=== PATIENT | female | born 1945 | race Caucasian/White ===

== ENCOUNTER → 2016-08-25 | Outpatient (CLI) | payer OTHER ==
[~2016-08-25] MED LIST: AMLO10TA2 PO; ASPI-435 PO; CHOL1TAB42 PO; FLM4 PO; GLIP10TA9 PO; HYDR-5688 PO; INSU70IN2 SC; LISI40TA PO; MAGN400T6 PO; METF-384 PO; METH2.5T PO; NVLGI/PEN SC; PHEN-1043 PO; POTA1080 PO; PRED-301 PO; PRLSR20 PO; TNR25 PO
== END | disposition home or self-care (01) ==
LOC: C.LABBFT 08:56
PROVIDERS: ATTEND Internal Medicine Rheumatology
DX: M35.3 Polymyalgia rheumatica (principal)

== ENCOUNTER 2016-09-15 16:55 | Emergency (ER) | payer OTHER ==
[~2016-09-15] VITALS: Ht 167.6 cm; Wt 118.2 kg
[~2016-09-15 16:55] MED LIST changes: -CHOL1TAB42 PO; -GLIP10TA9 PO; -METH2.5T PO; -NVLGI/PEN SC; -POTA1080 PO; -PRED-301 PO
[2016-09-15 17:01] VITALS: TEMP 37.2; Ht 167.6 cm; Wt 118.2 kg
[2016-09-15 17:40] VITALS: O2SAT 95
[2016-09-15 17:44] LABS: BASO % 0.1 %; BASO ABS # 0.02 K/uL (0-0.2); COMPLETE YES; EOS % 0.1 %; HEMATOCRIT 34.3 % (37-47); IG% 0.7 %; LYMPH % 9.6 %; LYMPH ABS # 1.62 K/uL (1.2-3.4); MEAN CELL VOLUME 75.4 fL (80-100); MEAN CORPUSCULAR HEMOGLOBIN 23.5 pg (25-34); MEAN CORPUSCULAR HGB CONC 31.2 g/dl (32-36); MEAN PLATELET VOLUME 10.1 fL (7.4-10.4); MONO % 3.7 %; NEUT % 85.8 %; PLATELET COUNT 407 K/uL (130-400); RED BLOOD COUNT 4.55 M/uL (4.2-5.4); WHITE BLOOD COUNT 16.89 K/uL (4.8-10.8)
[2016-09-15] MEDS ORDERED: INSU70IN2 SC (17:44)
[2016-09-15] MEDS ORDERED: CHOL1TAB42 PO (17:44)
[2016-09-15] MEDS ORDERED: METH2.5T PO (17:44)
[2016-09-15] MEDS ORDERED: POTA1080 PO (17:45)
[2016-09-15] MEDS ORDERED: NVLGI/PEN SC (17:56)
[2016-09-15] MEDS ORDERED: GLIP10TA9 PO (17:56)
[2016-09-15] MEDS ORDERED: PRED-301 PO ×2 (17:56)
[2016-09-15 17:58] LABS: PARTIAL THROMBOPLASTIN RATIO 0.9; PROTHROMBIN TIME (PATIENT) 10.4 SECONDS (9.0-12.0)
[2016-09-15 18:02] LABS: BUN/CREATININE RATIO 28.4 (10-20); CALCIUM 9.7 mg/dl (8.5-10.1); CREATININE 1.2 mg/dl (0.60-1.20); POTASSIUM 4.6 mmol/L (3.5-5.1)
[2016-09-15 18:07] LABS: ALB/GLOB RATIO 0.7 (0.9-2); CKMB/CK RATIO 3.2 (0-3.0)
--- NOTE | 2016-09-15 18:34 | DIAGNOSTIC IMAGING REPORT ---
CHEST ONE VIEW PORTABLE CLINICAL HISTORY: Shortness of breath. Respiratory distress. COMPARISON STUDY: Chest radiograph November 03, 2014. FINDINGS: Elevation of the right hemidiaphragm is unchanged. There is no pneumothorax or pleural effusion. There is no evidence of pulmonary edema. Mild left lung opacities favor atelectasis. There is no consolidation to suggest pneumonia. The cardiomediastinal silhouette is stable. IMPRESSION: No acute cardiopulmonary findings. Electronically signed by: Jayy Rojas M.D. 09/15/2016 6:33 PM Dictated Date/Time: 09/15/2016 6:31 PM
--- NOTE | 2016-09-15 18:49 | DIAGNOSTIC IMAGING REPORT ---
BILATERAL LOWER EXTREMITY VENOUS DOPPLER CLINICAL HISTORY: Shortness of breath. Respiratory distress. COMPARISON STUDY: Bilateral lower extremity venous Doppler April 06, 2013 TECHNIQUE: Sonography of the deep venous system of the bilateral lower extremities was performed. Compression and augmentation were evaluated. FINDINGS: The bilateral common femoral, superficial femoral and popliteal veins were compressible. Augmentation was normal. Flow was shown within the deep calf vessels. IMPRESSION: No evidence of deep venous thrombus within the bilateral lower extremities. Electronically signed by: Jayy Rojas M.D. 09/15/2016 6:48 PM Dictated Date/Time: 09/15/2016 6:47 PM
--- NOTE | 2016-09-15 19:21 | EMERGENCY ROOM VISIT NOTE ---
History Report prepared by Sweetie: Melissa Hernandez Under the Supervision of: Dr. Sidney Gomez D.O. First contact with patient: 17:06 Chief Complaint: SHORTNESS OF BREATH Stated Complaint: BREATHING History of Present Illness The patient is a 71 year old female who presents to the Emergency Room with complaints of worsening shortness of breath that started 3-4 days ago. She is also experiencing worsening bilateral upper and lower extremity edema as well as palpitations that also started 3-4 days ago. She states that at night both of her arms from her forearms to her hands get numb and cold. She states that the same thing happens in her bilateral lower extremities. The patient denies fevers, cough, chest discomfort or pain, nausea, and vomiting. The patient adds that she has been experiencing constant "fullness" in the back of her right leg for the past two weeks and the pain is still there currently. She developed a lump in the spot of the pain 5 days ago, but it has since resolved. The patient was seen by her PCP earlier today for her symptoms. They put a pulse oximetry monitor on her and her oxygen saturation was 95% when resting and 93% when walking. They also performed an EKG that had slight changes from previous ones with some "extra or skipped" beats. She states that they also noticed her increased shortness of breath. Based on her symptoms, her PCP recommended that she come into the ED to rule out a blood clot in her right leg along with pulmonary emboli. The patient states that she had an unremarkable stress test done in the past, but she did not specify how long ago it was done. The patient has never had a heart catheterization and denies any history of heart disease. The patient also denies any history of blood clots. The patient states that she has a history of PMR, diabetes, hypertension. She also states that her surgical history includes surgeries secondary to breast cancer, surgically removed kidney stones, knee surgery, and an appendectomy. The patient denies any tobacco or alcohol use. Source of History: patient Onset: 3-4 days ago Position: chest Quality: other (shortness of breath) Timing: worsening Associated Symptoms: No chest pain, No cough, No fevers, No nausea, No vomiting Note: bilateral upper and lower extremity edema, palpitations, numbness at night distally in both arms and both legs, "fullness" in back of right leg, resolved lump behind right knee Review of Systems See HPI for pertinent positives & negatives. A total of 10 systems reviewed and were otherwise negative. Past Medical & Surgical Medical Problems: (1) Delaney's Palsy (2) Cholelithiasis Nos (3) Diabetes mellitus (4) Diverticulitis Colon (W/O Ment Of Hemorrhage) (5) Esophageal Reflux (6) Hypertension Nos (7) PMR (polymyalgia rheumatica) (8) Renal calculus, right (9) Umbilical Hernia Surgical Problems: (1) History of appendectomy Family History Cancer Diabetes mellitus Gallbladder disease Hypertension Lung disease Social History Smoking Status: Never Smoker Alcohol Use: none Drug Use: none Marital Status: Occupation Status: employed Current/Historical Medications Scheduled Amlodipine Besylate (Norvasc), 5 MG PO DAILY Aspirin (Aspirin 81), 81 MG PO DAILY Atenolol (Atenolol), 25 MG PO DAILY Cholecalciferol (Vitamin D), 5,000 UNITS PO DAILY Glipizide (Glucotrol), 20 MG PO BID Insulin Aspart (Novolog Flexpen), 38 UNITS SC PM Insulin Human Isophan/Regular (Novolin 70/30), 100 UNITS SC QAM Insulin Human Isophan/Regular (Novolin 70/30), 60 UNIT SC QPM Lisinopril (Prinivil), 40 MG PO DAILY Magnesium Oxide (Mag-Ox), 400 MG PO BID Metformin Hcl (Glucophage), 1,000 MG PO BID Methotrexate (Methotrexate), 2.5 MG PO 3XWK Omeprazole (Prilosec), 20 MG PO BID Potassium Citrate (Alkalinizer (Potassium Citrate ER), 1,080 MG PO BID Prednisone (Prednisone), 20 MG PO QAM Prednisone (Prednisone), 5 MG PO 1500 Allergies Coded Allergies: Iodinated Contrast Media (Verified Allergy, Severe, ANAPHYLAXIS, CONVULSIONS, 09/15/16) Metronidazole (Verified Allergy, Intermediate, HIVES, 09/15/16) Quinolones (Verified Allergy, Intermediate, HIVES, 09/15/16) Adhesives (Unverified Allergy, Unknown, SEVERE BURNING BLISTERS, 09/15/16) Ciprofloxacin (Verified Allergy, Unknown, hives, 09/15/16) pt Sulfamethoxazole w/Trimethoprim (Verified Allergy, Unknown, hives, 09/15/16 ) pt Sumatriptan (Verified Allergy, Unknown, SOB,INCREASED HEARTRATE, 09/15/16) Tramadol (Verified Allergy, Unknown, FATIGUE, 09/15/16) Physical Exam Vital Signs Date Time Temp Pulse Resp B/P Pulse Ox O2 Delivery O2 Flow Rate FiO2 09/15/16 19:30 66 128/53 94 09/15/16 18:44 67 20 162/62 95 Room Air 09/15/16 17:54 77 09/15/16 17:40 95 Room Air 09/15/16 17:40 95 Room Air 09/15/16 17:01 37.2 79 19 151/68 93 Room Air Physical Exam GENERAL: Patient is awake, alert, and in no acute distress. Patient is resting comfortably and showing no signs of anxiety EYES: The conjunctivae are clear. The pupils are round and reactive. EARS, NOSE, MOUTH AND THROAT: The nose is without any evidence of any deformity. Mucous membranes are moist tongue is midline NECK: The neck is nontender and supple. RESPIRATORY: Normal respiratory effort is noted there is no evidence of wheezing rhonchi or rales CARDIOVASCULAR: Regular rate and rhythm noted there no murmurs rubs or gallops normal S1 normal S2 GASTROINTESTINAL: The abdomen is soft. Bowel sounds are present in all quadrants. Abdomen is nontender MUSCULOSKELETAL/EXTREMITIES: Right calf tenderness to palpation. Pulses symmetric. There is no evidence of gross deformity full range of motion is noted in the hips and shoulders. SKIN: There is no significant pedal edema noted. Skin is warm and dry. There is no obvious evidence of any rash. There are no petechiae, pallor or cyanosis noted. NEUROLOGIC: Patient is awake alert and oriented x3 Medical Decision & Procedures ER Provider Diagnostic Interpretation: Radiology results as stated below per my review and radiologist interpretation: CHEST ONE VIEW PORTABLE IMPRESSION: No acute cardiopulmonary findings. Electronically signed by: Jayy Rojas M.D. 09/15/2016 6:33 PM Dictated Date/Time: 09/15/2016 6:31 PM BILATERAL LOWER EXTREMITY VENOUS DOPPLER IMPRESSION: No evidence of deep venous thrombus within the bilateral lower extremities. Electronically signed by: Jayy Rojas M.D. 09/15/2016 6:48 PM Dictated Date/Time: 09/15/2016 6:47 PM Laboratory Results 09/15/16 17:30 Red Blood Count 4.55, Mean Corpuscular Volume 75.4, Mean Corpuscular Hemoglobin 23.5, Mean Corpuscular Hemoglobin Concent 31.2, Mean Platelet Volume 10.1, Neutrophils (%) (Auto) 85.8, Lymphocytes (%) (Auto) 9.6, Monocytes (%) (Auto) 3.7, Eosinophils (%) (Auto) 0.1, Basophils (%) (Auto) 0.1, Neutrophils # (Auto) 14.49, Lymphocytes # (Auto) 1.62, Monocytes # (Auto) 0.62, Eosinophils # (Auto) 0.02, Basophils # (Auto) 0.02 09/15/16 17:30 Test 09/15/16 17:30 09/15/16 17:48 White Blood Count 16.89 K/uL (4.8-10.8) Red Blood Count 4.55 M/uL (4.2-5.4) Hemoglobin 10.7 g/dL (12.0-16.0) Hematocrit 34.3 % (37-47) Mean Corpuscular Volume 75.4 fL (80-100) Mean Corpuscular Hemoglobin 23.5 pg (25-34) Mean Corpuscular Hemoglobin Concent 31.2 g/dl (32-36) Platelet Count 407 K/uL (130-400) Mean Platelet Volume 10.1 fL (7.4-10.4) Neutrophils (%) (Auto) 85.8 % Lymphocytes (%) (Auto) 9.6 % Monocytes (%) (Auto) 3.7 % Eosinophils (%) (Auto) 0.1 % Basophils (%) (Auto) 0.1 % Neutrophils # (Auto) 14.49 K/uL (1.4-6.5) Lymphocytes # (Auto) 1.62 K/uL (1.2-3.4) Monocytes # (Auto) 0.62 K/uL (0.11-0.59) Eosinophils # (Auto) 0.02 K/uL (0-0.5) Basophils # (Auto) 0.02 K/uL (0-0.2) RDW Standard Deviation 49.7 fL (36.4-46.3) RDW Coefficient of Variation 18.5 % (11.5-14.5) Immature Granulocyte % (Auto) 0.7 % Immature Granulocyte # (Auto) 0.12 K/uL (0.00-0.02) Prothrombin Time 10.4 SECONDS (9.0-12.0) Prothromb Time International Ratio 1.0 (0.9-1.1) Activated Partial Thromboplast Time 22.6 SECONDS (21.0-31.0) Partial Thromboplastin Ratio 0.9 Anion Gap 9.0 mmol/L (3-11) Est Creatinine Clear Calc Drug Dose 56.2 ml/min Estimated GFR () 52.7 Estimated GFR (Non- 45.4 BUN/Creatinine Ratio 28.4 (10-20) Calcium Level 9.7 mg/dl (8.5-10.1) Total Bilirubin 0.2 mg/dl (0.2-1) Aspartate Amino Transf (AST/SGOT) 26 U/L (15-37) Alanine Aminotransferase (ALT/SGPT) 48 U/L (12-78) Alkaline Phosphatase 49 U/L (45-117) Total Creatine Kinase 50 U/L (26-192) Creatine Kinase MB 1.6 ng/ml (0.5-3.6) Creatine Kinase MB Ratio 3.2 (0-3.0) Pro-B-Type Natriuretic Peptide 246 pg/ml (0-900) Total Protein 7.4 gm/dl (6.4-8.2) Albumin 3.1 gm/dl (3.4-5.0) Globulin 4.3 gm/dl (2.5-4.0) Albumin/Globulin Ratio 0.7 (0.9-2) Bedside D-Dimer 253 ng/mlFEU (0-450) Bedside Troponin I 0.000 ng/ml (0-0.045) Laboratory results per my review. ECG Indication: palpitations, SOB/dyspnea Rate (beats per minute): 73 Rhythm: sinus rhythm Findings: PAC, other (no acute ST segment abnormalities, LVH by voltage criteria) Comparison ECG Date: 11/04/2014 Change: no significant change ED Course 1712: The patient was evaluated in room B3. A complete history and physical examination were performed. 1900: Upon reevaluation, the patient is doing well. I discussed the results and treatment plan with her. She verbalized agreement of the treatment plan. She was discharged home. Medical Decision Prior records/ancillary studies reviewed. Triage Nursing notes reviewed. The patient's history was concerning for respiratory difficulties. Differential diagnosis: Etiologies such as infections, reactive airway disease, pneumonia, pneumothorax , COPD, CHF, cardiac ischemia, pulmonary embolism, musculoskeletal, gastrointestinal, as well as others were entertained. The patient is a 71-year-old female who presented to the emergency department for cough and shortness of breath. The patient was seen by her primary care physician. She is currently taking steroids. She started having some pain behind her right knee and noticed swelling. This resolved. Her primary care physician thought it could be a Paul cyst but also thought with her other symptoms this could be consistent with venous thromboembolic disease. The patient's venous Dopplers did not show any signs of venous thrombolic disease. Her d-dimer was negative. Her chest x-ray did not show any acute disease. I discussed the patient's laboratory and radiographic studies with her. She was concerned because her oxygen level was not at baseline for her. She states her baseline is normally around 97% but at this time she has no signs of heart failure or pulmonary embolism. She also does not have any signs of infectious process. She was found have an elevated white blood cell count but she is currently taking steroids. I do feel this could be consistent with a bronchitis or some other process so I encouraged her to rest and avoid any strenuous activity. I asked her to call her primary care physician to schedule a follow- up appointment as well as possible echocardiogram and Holter monitor. She was also encouraged to return to the emergency department immediately if symptoms change worsen or if the need arises. Impression Primary Impression: Dyspnea Additional Impression: Heart palpitations Scribe Attestation The scribe's documentation has been prepared under my direction and personally reviewed by me in its entirety. I confirm that the note above accurately reflects all work, treatment, procedures, and medical decision making performed by me. Departure Information Dispostion Home / Self-Care Referrals No Doctor, Assigned (PCP) Forms HOME CARE DOCUMENTATION FORM, IMPORTANT VISIT INFORMATION Patient Instructions My [facility] Additional Instructions CAll your family doctor to schedule a follow up appointment. I would discuss the possible need for an echocardiogram and Holter monitor to evaluate the cause of your symptoms. Rest and avoid any strenuous activities. Return to the ER of symptoms change or if the need arises. Problem Qualifiers Primary Impression: Dyspnea Dyspnea type: shortness of breath Qualified Codes: R06.02 - Shortness of breath
[2016-09-15 19:30] VITALS: BP 128/53; PULSE 66; O2SAT 94
== END 2016-09-15 19:32 | disposition home or self-care (01) ==
LOC: C.EDB 16:56
DX: R06.02 Shortness of breath (principal); R00.2 Palpitations; M35.3 Polymyalgia rheumatica; E11.9 Type 2 diabetes mellitus without complications; G51.0 Bell's palsy; Z83.3 Family history of diabetes mellitus; Z82.49 Family history of ischemic heart disease and other diseases of the circulatory system; Z79.82 Long term (current) use of aspirin; Z79.4 Long term (current) use of insulin; Z79.899 Other long term (current) drug therapy

== ENCOUNTER → 2016-09-18 | Outpatient (CLI) | payer OTHER ==
[~2016-09-18] MED LIST changes: +CHOL1TAB42 PO; -FLM4 PO; +GLIP10TA9 PO; -HYDR-5688 PO; +METH2.5T PO; +NVLGI/PEN SC; -PHEN-1043 PO; +POTA1080 PO; +PRED-301 PO
[2016-09-18 12:22] LABS: HEMATOCRIT 36.4 % (37-47); MEAN CELL VOLUME 75.2 fL (80-100); MEAN CORPUSCULAR HEMOGLOBIN 23.3 pg (25-34); PLATELET COUNT 490 K/uL (130-400); RED BLOOD COUNT 4.84 M/uL (4.2-5.4); WHITE BLOOD COUNT 23.72 K/uL (4.8-10.8)
[2016-09-18 12:31] LABS: ALT/SGPT 48 U/L (12-78)
[2016-09-18 12:34] LABS: ALKALINE PHOSPHATASE 50 U/L (45-117); AST/SGOT 17 U/L (15-37)
[2016-09-18 13:16] LABS: BASO % 0.3 %; BASO ABS # 0.07 K/uL (0-0.2); COMPLETE YES; EOS % 0.6 %; IG% 2.5 %; LYMPH % 9.5 %; LYMPH ABS # 2.26 K/uL (1.2-3.4); MONO % 2.4 %; NEUT % 84.7 %
== END | disposition home or self-care (01) ==
LOC: C.LABBFT 10:21
PROVIDERS: ATTEND Internal Medicine Rheumatology
DX: M79.643 Pain in unspecified hand (principal); M35.3 Polymyalgia rheumatica

== ENCOUNTER → 2016-10-22 | Outpatient (CLI) | payer OTHER ==
[~2016-10-22] MED LIST changes: +ALLO100T PO; +AMOX500T PO; +CALC-494 PO; +CHOL400C PO; +FOLI1TAB7 PO; +FURO-85 PO; +LOSA100T65 PO; +METH1TAB81 PO; +TNR50 PO
[2016-10-22 17:27] LABS: BASO % 0.2 %; BASO ABS # 0.03 K/uL (0-0.2); EOS % 1.1 %; HEMATOCRIT 34.8 % (37-47); LYMPH % 10.3 %; LYMPH ABS # 1.65 K/uL (1.2-3.4); MEAN CELL VOLUME 80.4 fL (80-100); MEAN CORPUSCULAR HEMOGLOBIN 23.8 pg (25-34); MEAN CORPUSCULAR HGB CONC 29.6 g/dl (32-36); MEAN PLATELET VOLUME 10.7 fL (7.4-10.4); MONO % 2.6 %; NEUT % 84.8 %; PLATELET COUNT 372 K/uL (130-400); RED BLOOD COUNT 4.33 M/uL (4.2-5.4)
[2016-10-22 17:31] LABS: ALT/SGPT 49 U/L (12-78); AST/SGOT 23 U/L (15-37)
[2016-10-22 17:33] LABS: ALKALINE PHOSPHATASE 36 U/L (45-117); C-REACTIVE PROTEIN 1.19 mg/dl (0-0.29)
[2016-10-22 17:55] LABS: ANISOCYTOSIS PRESENT; COMPLETE YES; ECHINOCYTES 1+; SCHISTOCYTES 1+
[2016-10-28 04:31] LABS: ANTI-CENTROMERE AB <1.0 NEG AI (<1.0 NEG); ANTI-SS-A 1.4 POS AI (<1.0 NEG); ANTI-SS-B <1.0 NEG AI (<1.0 NEG); DNA ds CRITHIDIA NEGATIVE (NEGATIVE); Sm Antibody <1.0 NEG AI (<1.0 NEG)
== END | disposition home or self-care (01) ==
LOC: C.LABBFT 12:59
PROVIDERS: ATTEND Internal Medicine Rheumatology
DX: R70.0 Elevated erythrocyte sedimentation rate (principal); M79.643 Pain in unspecified hand; M79.646 Pain in unspecified finger(s); M35.3 Polymyalgia rheumatica; M35.00 Sjogren syndrome, unspecified

== ENCOUNTER → 2016-11-10 | Outpatient (CLI) | payer OTHER ==
--- NOTE | 2016-11-10 15:48 | MAMMOGRAPHY REPORT ---
BILATERAL DIGITAL DIAGNOSTIC MAMMOGRAM TOMOSYNTHESIS WITH CAD: 11/10/2016 CLINICAL HISTORY: 71-year-old woman with a recent chest CT performed 10/30/2016 and a finding in the right breast on that exam, "21 x 38 mm soft tissue nodule with partial rim calcification in the rig ht breast which has increased since a prior CT scan. Postsurgical change with oil cysts are seen at this level on prior mammogram." Patient presents for annual bilateral screening mammography and ad ditional workup for possible changes near the surgical sites in the right breast. 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 TECHNIQUE: Bilateral breast tomosynthesis in addition to standard 2D mammography was performed. Curr ent study was also evaluated with a Computer Aided Detection (CAD) system. COMPARISON: Comparison is made to exams dated: 12/20/2015 mammogram, 12/07/2014 mammogram, 12/06/2013 m ammogram, 11/29/2012 mammogram, 06/07/2012 mammogram, and 07/01/2011 ultrasound - [facility]. BREAST COMPOSITION: There are scattered areas of fibroglandular density in both breasts. FINDINGS: There are coarse dystrophic calcifications and multiple surgical clips in the upper outer middle to posterior right breast, at the sites of 2 prior lumpectomies. The more superior and later al surgical site contains uniform dystrophic rim calcification M a and the medial and inferior surgi ross site has coarsened and is increasingly calcified comparing to prior available mammograms. There is also evidence of scar retraction of the medial surgical site. There is no evidence of a suspici ous soft tissue density or obvious mass, including the tomosynthesis images. There is a stable lobu lated and circumscribed 6 mm mass in the far medial right breast on the CC view, that has been prese nt on prior mammograms dating back to at least 06/03/2007, therefore considered benign. There are o ther benign rim calcifications diffusely scattered throughout the right breast. Mild diffuse skin t hickening is unchanged compared to multiple prior mammograms. There is a stable grouping of microcalcifications in the medial left breast and a few other benign-a ppearing scattered microcalcifications. No new suspicious mass, architectural distortion or suspici ous calcifications are identified in the left breast. IMPRESSION: ACR BI-RADS CATEGORY 2: BENIGN 1. There is continued scar retraction and increased calcification/coarsening of the medial lumpecto my bed within the right breast, which is now more confluent of the more remote lateral surgical bed, all of which contain benign rim calcifications/oil cysts. There is no evidence of a new suspicious mammographic mass, developing asymmetry or unexpected area of architectural distortion. The findin gs at the surgical site are considered benign. 2. Stable mammographic appearance of the left breast, without mammographic evidence of malignancy. Recommend follow-up in 1 year for next annual screening mammogram. The patient can remain diagnosti c in case any additional mammographic views and/or ultrasound are needed, given she is high risk, wi th a personal history of 2 prior right breast cancers. Approximately 10% of breast cancers are not detected with mammography. A negative mammographic repor t should not delay biopsy if a clinically suggestive mass is present. Nadege Samuels M.D. ay/:11/10/2016 15:12:20 Metal Finisher: Caitlin ORTEGA(Pedrito)(Cristo), [facility] letter sent: Normal 1/2 BI-RADS Code: ACR BI-RADS Category 2: Benign
== END | disposition home or self-care (01) ==
LOC: C.MAMM 13:23
PROVIDERS: ATTEND Internal Medicine
DX: N63 Unspecified lump in breast (principal)

== ENCOUNTER → 2016-12-05 | Outpatient (CLI) | payer OTHER | END | disposition home or self-care (01) | LOC: C.LABBFT 14:33 | PROVIDERS: ATTEND Internal Medicine Rheumatology | DX: M35.3 Polymyalgia rheumatica (principal); R76.8 Other specified abnormal immunological findings in serum; Z79.899 Other long term (current) drug therapy ==

== ENCOUNTER → 2017-01-12 | Outpatient (CLI) | payer OTHER | END | disposition home or self-care (01) | LOC: C.LABBFT 11:42 | PROVIDERS: ATTEND Internal Medicine Rheumatology | DX: R70.0 Elevated erythrocyte sedimentation rate (principal); M35.3 Polymyalgia rheumatica; Z79.899 Other long term (current) drug therapy ==

== ENCOUNTER → 2017-02-17 | Outpatient (CLI) | payer OTHER ==
[2017-02-21 06:21] LABS: ANTI-CENTROMERE AB <1.0 NEG AI (<1.0 NEG); ANTI-SS-A 1.1 POS AI (<1.0 NEG); ANTI-SS-B <1.0 NEG AI (<1.0 NEG); DNA ds CRITHIDIA NEGATIVE (NEGATIVE); Sm Antibody <1.0 NEG AI (<1.0 NEG)
== END | disposition home or self-care (01) ==
LOC: C.LABBFT 11:59
PROVIDERS: ATTEND Internal Medicine Rheumatology
DX: M35.3 Polymyalgia rheumatica (principal); Z79.899 Other long term (current) drug therapy

== ENCOUNTER → 2017-03-13 | Outpatient (CLI) | payer OTHER | END | disposition home or self-care (01) | LOC: C.LABBFT 14:47 | PROVIDERS: ATTEND Internal Medicine Rheumatology | DX: M35.3 Polymyalgia rheumatica (principal); R76.8 Other specified abnormal immunological findings in serum; Z79.899 Other long term (current) drug therapy ==

== ENCOUNTER → 2017-04-03 | Outpatient (CLI) | payer OTHER ==
--- NOTE | 2017-04-03 12:35 | DIAGNOSTIC IMAGING REPORT ---
VENOUS DOPPLER LW EXT BILAT HISTORY: Pain. Edema. EDEMA COMPARISON STUDY: None. FINDINGS: There is normal compressibility, flow, and augmentation within the bilateral lower extremity deep venous systems. IMPRESSION: No DVT within the right or left lower extremity. The above report was generated using voice recognition software. It may contain grammatical, syntax or spelling errors. Electronically signed by: Narciso Diallo M.D. 04/03/2017 12:34 PM Dictated Date/Time: 04/03/2017 12:33 PM
== END | disposition home or self-care (01) ==
LOC: C.ULTR 12:00
PROVIDERS: ATTEND Internal Medicine
DX: R60.9 Edema, unspecified (principal)

== ENCOUNTER 2017-04-24 15:15 | Emergency (ER) | payer OTHER ==
[~2017-04-24] VITALS: Ht 167.6 cm; Wt 121.2 kg
[~2017-04-24 15:15] MED LIST changes: -ALLO100T PO; -AMOX500T PO; -CALC-494 PO; -CHOL400C PO; -FOLI1TAB7 PO; -FURO-85 PO; -LOSA100T65 PO; -MAGN400T6 PO; -METH1TAB81 PO; -POTA1080 PO; -TNR50 PO
[2017-04-24 15:19] VITALS: TEMP 37.1; Ht 167.6 cm; Wt 121.2 kg
[2017-04-24] MEDS ORDERED: HydrALAZINE HCL 20 MG/ML VIAL IV. STA (15:38)
[2017-04-24 16:10] VITALS: O2SAT 93
--- NOTE | 2017-04-24 16:11 | DIAGNOSTIC IMAGING REPORT ---
CHEST ONE VIEW PORTABLE HISTORY: 71 years-old Female Evaluate Fever/Sepsis acute fever and sepsis with shortness of breath COMPARISON: Chest radiograph 09/15/2016 TECHNIQUE: Upright AP view of the chest FINDINGS: Cardiac silhouette is mildly enlarged. Mild right hemidiaphragmatic elevation redemonstrated. There is pulmonary vascular congestion without overt pulmonary edema. No pneumothorax, pleural effusion or focal airspace consolidation. Linear subsegmental atelectasis of the left midlung laterally, unchanged. The bones are grossly intact. Ossification about the right greater tuberosity humerus suggest calcific tendinosis or calcific bursitis. IMPRESSION: No acute cardiopulmonary process. The above report was generated using voice recognition software. It may contain grammatical, syntax or spelling errors. Electronically signed by: Alfred Cooper M.D. 04/24/2017 4:10 PM Dictated Date/Time: 04/24/2017 4:09 PM
[2017-04-24] MEDS ORDERED: FURO-85 PO (16:28)
[2017-04-24] MEDS ORDERED: ALLO100T PO (16:28)
[2017-04-24] MEDS ORDERED: TNR50 PO ×2 (16:28)
[2017-04-24] MEDS ORDERED: LOSA100T65 PO (16:28)
[2017-04-24] MEDS ORDERED: CALC-494 PO (16:28)
[2017-04-24] MEDS ORDERED: CHOL400C PO (16:28)
[2017-04-24] MEDS ORDERED: FOLI1TAB7 PO (16:28)
[2017-04-24 16:33] LABS: BASO % 0.4 %; BASO ABS # 0.05 K/uL (0-0.2); COMPLETE YES; EOS % 1.8 %; HEMATOCRIT 36.5 % (37-47); IG% 1.4 %; LYMPH % 15.6 %; LYMPH ABS # 2.03 K/uL (1.2-3.4); MEAN CELL VOLUME 80.9 fL (80-100); MEAN CORPUSCULAR HEMOGLOBIN 25.7 pg (25-34); MEAN CORPUSCULAR HGB CONC 31.8 g/dl (32-36); MEAN PLATELET VOLUME 10.2 fL (7.4-10.4); MONO % 5.5 %; NEUT % 75.3 %; PLATELET COUNT 352 K/uL (130-400); RED BLOOD COUNT 4.51 M/uL (4.2-5.4); WHITE BLOOD COUNT 13.01 K/uL (4.8-10.8)
[2017-04-24] MEDS ORDERED: MAGN400T6 PO (16:36)
[2017-04-24 16:41] LABS: PROTHROMBIN TIME (PATIENT) 10.7 SECONDS (9.0-12.0)
[2017-04-24 16:42] LABS: BLOOD UREA NITROGEN 17 mg/dl (7-18); GLUCOSE 157 mg/dl (70-99)
[2017-04-24 16:43] LABS: ALT/SGPT 59 U/L (12-78); AST/SGOT 49 U/L (15-37); BUN/CREATININE RATIO 16.9 (10-20); CALCIUM 9.1 mg/dl (8.5-10.1); CARBON DIOXIDE 25 mmol/L (21-32); CHLORIDE 105 mmol/L (98-107); POTASSIUM 4.1 mmol/L (3.5-5.1); SODIUM 141 mmol/L (136-145)
[2017-04-24 16:48] LABS: ALKALINE PHOSPHATASE 51 U/L (45-117); CKMB/CK RATIO 1.3 (0-3.0)
[2017-04-24] MEDS ORDERED: AMOX500T PO (16:57)
[2017-04-24] MEDS ORDERED: METH1TAB81 PO (16:57)
[2017-04-24] MEDS ORDERED: INSU70IN2 SC (17:44)
[2017-04-24] MEDS ORDERED: POTA1080 PO (17:45)
--- NOTE | 2017-04-24 18:00 | EMERGENCY ROOM VISIT NOTE ---
History Report prepared by Sweetie: Alon Neff Under the Supervision of: Dr. Kj Hill D.O. First contact with patient: 15:24 Chief Complaint: CHEST PAIN Stated Complaint: SOB, HEART PAIN History of Present Illness The patient is a 71 year old female who presents to the Emergency Room with complaints of intermittent chest pain that starts suddenly around 0145 this morning. She states that the pain comes every minute, and it comes and goes very quickly. The patient states that as the day has progressed, the pain has come less frequently, though the pain has gotten worse. The patient additionally states that she has been belching and having shortness of breath and indigestion. The patient states that she does not have any pain with movement. She additionally states that she has recently been changing her medications: she stopped amlodipine, and she has been changing her losartan, and she has increased her atenolol. She has a history of HTN, diabetes, PMR, Sjogren's syndrome, and diverticulitis. The patient additionally states that she has been having leg swelling for the past two months. Source of History: patient Onset: 0145 Position: chest Timing: intermittent, other (sudden) Associated Symptoms: + SOB Note: Associated symptoms: belching and indigestion Review of Systems See HPI for pertinent positives & negatives. A total of 10 systems reviewed and were otherwise negative. Past Medical & Surgical Medical Problems: (1) Delaney's Palsy (2) Cholelithiasis Nos (3) Diabetes mellitus (4) Diverticulitis Colon (W/O Ment Of Hemorrhage) (5) Esophageal Reflux (6) Hypertension Nos (7) PMR (polymyalgia rheumatica) (8) Renal calculus, right (9) Umbilical Hernia Surgical Problems: (1) History of appendectomy Family History Cancer Diabetes mellitus Gallbladder disease Hypertension Lung disease Social History Smoking Status: Never Smoker Alcohol Use: none Drug Use: none Marital Status: Occupation Status: employed Current/Historical Medications Scheduled Allopurinol (Zyloprim), 100 MG PO DAILY Amoxicillin & Pot Clavulanate (Augmentin 500MG), 1 TAB PO BID Aspirin (Aspirin 81), 81 MG PO DAILY Atenolol (Atenolol), 50 MG PO QAM Atenolol (Atenolol), 25 MG PO QPM Calcium Citrate-Vitamin D (Calcium Citrate + D3 200-250 mg-Unit), 2 TABS PO DAILY Cholecalciferol (Vitamin D3 400), 2,000 INTER.UNIT PO DAILY Folic Acid (Folvite), 1 MG PO DAILY Furosemide (Lasix), 20 MG PO Q2D Insulin Human Isophan/Regular (Novolin 70/30), 90 UNITS SC QAM Insulin Human Isophan/Regular (Novolin 70/30), 70 UNITS SC QPM Losartan Potassium (Cozaar), 50 MG PO DAILY Magnesium Oxide (Mag-Ox), 400 MG PO BID Metformin Hcl (Glucophage), 1,000 MG PO BID Methylprednisolone (Medrol), 2 MG PO DAILY Omeprazole (Prilosec), 20 MG PO BID Potassium Citrate (Alkalinizer (Potassium Citrate ER), 2,160 MG PO BID Allergies Coded Allergies: Iodinated Contrast Media (Verified Allergy, Severe, ANAPHYLAXIS, CONVULSIONS, 09/15/16) Metronidazole (Verified Allergy, Intermediate, HIVES, 09/15/16) Quinolones (Verified Allergy, Intermediate, HIVES, 09/15/16) Adhesives (Unverified Allergy, Unknown, SEVERE BURNING BLISTERS, 09/15/16) Ciprofloxacin (Verified Allergy, Unknown, hives, 09/15/16) pt Sulfamethoxazole w/Trimethoprim (Verified Allergy, Unknown, hives, 09/15/16 ) pt Sumatriptan (Verified Allergy, Unknown, SOB,INCREASED HEARTRATE, 09/15/16) Tramadol (Verified Allergy, Unknown, FATIGUE, 09/15/16) Physical Exam Vital Signs Date Time Temp Pulse Resp B/P (MAP) Pulse Ox O2 Delivery O2 Flow Rate FiO2 04/24/17 17:00 72 18 137/65 98 Room Air 04/24/17 16:51 82 04/24/17 16:10 77 16 154/66 93 Room Air 04/24/17 16:10 93 Room Air 04/24/17 15:49 93 Room Air 04/24/17 15:19 37.1 61 18 191/79 93 Room Air Physical Exam CONSTITUTIONAL/VITAL SIGNS: Reviewed / noted above. GENERAL: Non-toxic in appearance. INTEGUMENTARY: Warm, dry, and [place]. HEAD: Normocephalic. EYES: without scleral icterus or trauma. ENT/OROPHARYNX: clear and moist. LYMPHADENOPATHY/NECK: Is supple without lymphadenopathy or meningismus. RESPIRATORY: Lungs clear and equal. CARDIOVASCULAR: Regular rate and rhythm. GI/ABDOMEN: Soft and nontender. No organomegaly or pulsatile mass. No rebound or guarding. Normal bowel sounds. EXTREMITIES: Mild bilateral pedal edema. Warm and well perfused. BACK: No CVA tenderness. NEUROLOGICAL: Intact without focal deficits. PSYCHIATRIC: normal affect. MUSCULOSKELETAL: Normally developed with good muscle tone. Medical Decision & Procedures ER Provider Diagnostic Interpretation: Radiology results as stated below per my review and radiologist interpretation: CHEST ONE VIEW PORTABLE HISTORY: 71 years-old Female Evaluate Fever/Sepsis acute fever and sepsis with shortness of breath COMPARISON: Chest radiograph 09/15/2016 TECHNIQUE: Upright AP view of the chest FINDINGS: Cardiac silhouette is mildly enlarged. Mild right hemidiaphragmatic elevation redemonstrated. There is pulmonary vascular congestion without overt pulmonary edema. No pneumothorax, pleural effusion or focal airspace consolidation. Linear subsegmental atelectasis of the left midlung laterally, unchanged. The bones are grossly intact. Ossification about the right greater tuberosity humerus suggest calcific tendinosis or calcific bursitis. IMPRESSION: No acute cardiopulmonary process. The above report was generated using voice recognition software. It may contain grammatical, syntax or spelling errors. Electronically signed by: Alfred Cooper M.D. 04/24/2017 4:10 PM Dictated Date/Time: 04/24/2017 4:09 PM Laboratory Results 04/24/17 16:10 Red Blood Count 4.51, Mean Corpuscular Volume 80.9, Mean Corpuscular Hemoglobin 25.7, Mean Corpuscular Hemoglobin Concent 31.8, Mean Platelet Volume 10.2, Neutrophils (%) (Auto) 75.3, Lymphocytes (%) (Auto) 15.6, Monocytes (%) (Auto) 5.5, Eosinophils (%) (Auto) 1.8, Basophils (%) (Auto) 0.4, Neutrophils # (Auto) 9.80, Lymphocytes # (Auto) 2.03, Monocytes # (Auto) 0.71, Eosinophils # (Auto) 0.24, Basophils # (Auto) 0.05 04/24/17 16:10 Test 04/24/17 16:10 White Blood Count 13.01 K/uL (4.8-10.8) Red Blood Count 4.51 M/uL (4.2-5.4) Hemoglobin 11.6 g/dL (12.0-16.0) Hematocrit 36.5 % (37-47) Mean Corpuscular Volume 80.9 fL (80-100) Mean Corpuscular Hemoglobin 25.7 pg (25-34) Mean Corpuscular Hemoglobin Concent 31.8 g/dl (32-36) Platelet Count 352 K/uL (130-400) Mean Platelet Volume 10.2 fL (7.4-10.4) Neutrophils (%) (Auto) 75.3 % Lymphocytes (%) (Auto) 15.6 % Monocytes (%) (Auto) 5.5 % Eosinophils (%) (Auto) 1.8 % Basophils (%) (Auto) 0.4 % Neutrophils # (Auto) 9.80 K/uL (1.4-6.5) Lymphocytes # (Auto) 2.03 K/uL (1.2-3.4) Monocytes # (Auto) 0.71 K/uL (0.11-0.59) Eosinophils # (Auto) 0.24 K/uL (0-0.5) Basophils # (Auto) 0.05 K/uL (0-0.2) RDW Standard Deviation 54.5 fL (36.4-46.3) RDW Coefficient of Variation 18.5 % (11.5-14.5) Immature Granulocyte % (Auto) 1.4 % Immature Granulocyte # (Auto) 0.18 K/uL (0.00-0.02) Prothrombin Time 10.7 SECONDS (9.0-12.0) Prothromb Time International Ratio 1.0 (0.9-1.1) Activated Partial Thromboplast Time 25.3 SECONDS (21.0-31.0) Partial Thromboplastin Ratio 1.0 Anion Gap 11.0 mmol/L (3-11) Est Creatinine Clear Calc Drug Dose 68.5 ml/min Estimated GFR () 65.6 Estimated GFR (Non- 56.6 BUN/Creatinine Ratio 16.9 (10-20) Calcium Level 9.1 mg/dl (8.5-10.1) Total Bilirubin 0.3 mg/dl (0.2-1) Direct Bilirubin < 0.1 mg/dl (0-0.2) Aspartate Amino Transf (AST/SGOT) 49 U/L (15-37) Alanine Aminotransferase (ALT/SGPT) 59 U/L (12-78) Alkaline Phosphatase 51 U/L (45-117) Total Creatine Kinase 55 U/L (26-192) Creatine Kinase MB 0.7 ng/ml (0.5-3.6) Creatine Kinase MB Ratio 1.3 (0-3.0) Troponin I < 0.015 ng/ml (0-0.045) Total Protein 7.4 gm/dl (6.4-8.2) Albumin 3.1 gm/dl (3.4-5.0) Lipase 133 U/L (73-393) Laboratory results as stated above per my review. ECG Indication: chest pain Rate (beats per minute): 93 Rhythm: sinus rhythm Findings: PAC, other (No injury) ED Course 1524: Previous medical records were reviewed. The patient was evaluated in room B7. A complete history and physical examination was performed. 1757: On reevaluation, the patient is doing well, and her blood pressure has come down. I discussed the results and findings with the patient. She verbalized agreement of the treatment plan. She was discharged home. Medical Decision the differential was considered includes acute myocardial infarction, acute coronary syndrome, myocarditis, pericarditis, pericardial effusions /tamponad, esophageal perforation, thoracic aortic dissection, pulmonary embolism, pneumonia, pneumothorax, pancreatitis, shingles, acute cholecystitis, perforated abdominal viscus. This is a 71-year-old female who presents to the ED with a chief complaint of a stabbing chest pain with some associated shortness of breath and indigestion. The symptoms started around 1:45 AM. She states that the pain waxes and wane all day and a sharp pains came from 2 minutes apart to 20 minutes apart. She states that became less frequent through the day but the pain seemed to increase through the day. The patient seemed to be belching quite a bit as well. She reports a history of diabetes. She denies any fevers or chills. 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 Her blood pressure was elevated at the time and she had some adjustments in her medications made. The patient's physical exam was unremarkable. Her initial blood pressure here was elevated. I had ordered hydralazine but she did not get it as the patient's blood pressure improved to 154/66 prior to the nurse administering it. Upon disposition the patient's blood pressure was 137/65. Again she did not receive any treatment here. The patient states that she is feeling completely better. She does not want to stay in the hospital. She prefers going home. She was felt to be stable for discharge. Blood work including CBC and complete metabolic panel were unremarkable. Chest x-ray is negative for acute disease. EKG showed a normal sinus rhythm and troponin was negative. Medication Reconcilliation Current Medication List: was personally reviewed by me Blood Pressure Screening Patient's blood pressure: Elevated blood pressure Blood pressure disposition: Elevated BP felt to be situational Impression Primary Impression: Substernal precordial chest pain Scribe Attestation The scribe's documentation has been prepared under my direction and personally reviewed by me in its entirety. I confirm that the note above accurately reflects all work, treatment, procedures, and medical decision making performed by me. Departure Information Dispostion Home / Self-Care Referrals Alcides Eduardo D.O. (PCP) Forms Call Back Authorization, HOME CARE DOCUMENTATION FORM, IMPORTANT VISIT INFORMATION Patient Instructions My [facility] Additional Instructions Follow-up with your doctor for further care and evaluation in 1-2 days. Return to the emergency department for worsening or new symptoms or any concerns. You have been examined and treated today on an emergency basis only. This is not a substitute for, or an effort to provide, complete comprehensive medical care. It is impossible to recognize and treat all injuries or illnesses in a single emergency department visit. It is therefore important that you follow up closely with your doctor. Call as soon as possible for an appointment.
[2017-04-24 18:17] VITALS: BP 130/67; PULSE 73; O2SAT 98
== END 2017-04-24 18:19 | disposition home or self-care (01) ==
LOC: C.EDB 15:16
DX: R07.2 Precordial pain (principal); G51.0 Bell's palsy; K80.20 Calculus of gallbladder without cholecystitis without obstruction; E11.9 Type 2 diabetes mellitus without complications; K57.92 Diverticulitis of intestine, part unspecified, without perforation or abscess without bleeding; K21.9 Gastro-esophageal reflux disease without esophagitis; I10 Essential (primary) hypertension; Z83.3 Family history of diabetes mellitus; Z82.49 Family history of ischemic heart disease and other diseases of the circulatory system; Z79.82 Long term (current) use of aspirin; Z79.4 Long term (current) use of insulin

== ENCOUNTER → 2017-04-28 | Outpatient (CLI) | payer OTHER ==
[~2017-04-28] MED LIST changes: +ALLO100T PO; -AMLO10TA2 PO; +AMOX500T PO; +CALC-494 PO; -CHOL1TAB42 PO; +CHOL400C PO; +FOLI1TAB7 PO; +FURO-85 PO; -GLIP10TA9 PO; -LISI40TA PO; +LOSA100T65 PO; +MAGN400T6 PO; +METH1TAB81 PO; -METH2.5T PO; -NVLGI/PEN SC; +POTA1080 PO; -PRED-301 PO; -TNR25 PO; +TNR50 PO
== END | disposition home or self-care (01) ==
LOC: C.LAB1850 11:15
PROVIDERS: ATTEND Internal Medicine Rheumatology
DX: R76.8 Other specified abnormal immunological findings in serum (principal)

== ENCOUNTER → 2017-06-23 | Outpatient (CLI) | payer OTHER | END | disposition home or self-care (01) | LOC: C.LABBFT 11:01 | PROVIDERS: ATTEND Internal Medicine Rheumatology | DX: M31.6 Other giant cell arteritis (principal) ==

== ENCOUNTER → 2017-08-10 | Outpatient (CLI) | payer OTHER ==
[~2017-08-10] MED LIST changes: -FOLI1TAB7 PO; +FOLI1TAB8 PO
[2017-08-10 12:38] LABS: BASO % 0.4 %; BASO ABS # 0.05 K/uL (0-0.2); EOS % 5.4 %; EOS ABS # 0.62 K/uL (0-0.5); HEMATOCRIT 37.5 % (37-47); HEMOGLOBIN 11.5 g/dL (12.0-16.0); IG# 0.07 K/uL (0.00-0.02); LYMPH % 15.9 %; LYMPH ABS # 1.82 K/uL (1.2-3.4); MEAN CELL VOLUME 81.7 fL (80-100); MEAN CORPUSCULAR HEMOGLOBIN 25.1 pg (25-34); MEAN CORPUSCULAR HGB CONC 30.7 g/dl (32-36); MEAN PLATELET VOLUME 11.4 fL (7.4-10.4); MONO % 4.2 %; MONO ABS # 0.48 K/uL (0.11-0.59); NEUT % 73.5 %; PLATELET COUNT 349 K/uL (130-400); RED CELL DISTRIBUTION WIDTH CV 16.4 % (11.5-14.5); RED CELL DISTRIBUTION WIDTH SD 48.7 fL (36.4-46.3); WHITE BLOOD COUNT 11.44 K/uL (4.8-10.8)
[2017-08-10 13:01] LABS: HEMOGLOBIN A1C 10.1 % (4.5-5.6)
[2017-08-10 13:08] LABS: ALBUMIN 3.2 gm/dl (3.4-5.0); ALT/SGPT 37 U/L (12-78); AST/SGOT 29 U/L (15-37); CHOLESTEROL 125 mg/dl (0-200); POTASSIUM 4.3 mmol/L (3.5-5.1)
[2017-08-10 13:16] LABS: ALKALINE PHOSPHATASE 43 U/L (45-117); LDL CHOLESTEROL CALCULATED 55 mg/dl; TOTAL PROTEIN 6.9 gm/dl (6.4-8.2)
== END | disposition home or self-care (01) ==
LOC: C.LABBFT 10:20
PROVIDERS: ATTEND Internal Medicine Rheumatology
DX: Z00.00 Encounter for general adult medical examination without abnormal findings (principal); Z51.81 Encounter for therapeutic drug level monitoring; Z79.899 Other long term (current) drug therapy; R70.0 Elevated erythrocyte sedimentation rate; M31.6 Other giant cell arteritis; E11.65 Type 2 diabetes mellitus with hyperglycemia; M35.3 Polymyalgia rheumatica; K57.92 Diverticulitis of intestine, part unspecified, without perforation or abscess without bleeding; R91.1 Solitary pulmonary nodule; I10 Essential (primary) hypertension; M48.061 Spinal stenosis, lumbar region without neurogenic claudication

== ENCOUNTER 2017-08-16 15:44 | Inpatient (IN) | payer OTHER ==
[~2017-08-16] VITALS: Ht 167.6 cm; Wt 116.3 kg
[2017-08-16] MEDS ORDERED: MoRPHine SULFATE 4 MG/ML 1 ML CARP\\VIAL IV STA (16:44)
[2017-08-16] MEDS ORDERED: ONDANSETRON INJ 2 MG/ML 2 ML VIAL IV STA (16:44)
[2017-08-16] MEDS ORDERED: GABA-113 PO (17:15)
[2017-08-16] MEDS ORDERED: PANT40TA PO (17:15)
[2017-08-16 17:20] LABS: BASO % 0.2 %; BASO ABS # 0.03 K/uL (0-0.2); EOS % 4.2 %; EOS ABS # 0.52 K/uL (0-0.5); HEMATOCRIT 35.8 % (37-47); HEMOGLOBIN 11.3 g/dL (12.0-16.0); IG# 0.18 K/uL (0.00-0.02); LYMPH % 14.2 %; LYMPH ABS # 1.74 K/uL (1.2-3.4); MEAN CELL VOLUME 80.6 fL (80-100); MEAN CORPUSCULAR HEMOGLOBIN 25.5 pg (25-34); MEAN CORPUSCULAR HGB CONC 31.6 g/dl (32-36); MEAN PLATELET VOLUME 10.6 fL (7.4-10.4); MONO % 5.4 %; MONO ABS # 0.66 K/uL (0.11-0.59); NEUT % 74.5 %; NEUT ABS # 9.16 K/uL (1.4-6.5); PLATELET COUNT 335 K/uL (130-400); RED CELL DISTRIBUTION WIDTH CV 16.3 % (11.5-14.5); RED CELL DISTRIBUTION WIDTH SD 47.6 fL (36.4-46.3); WHITE BLOOD COUNT 12.29 K/uL (4.8-10.8)
[2017-08-16 17:28] LABS: PTT PATIENT 24.5 SECONDS (21.0-31.0)
[2017-08-16 17:51] LABS: ALBUMIN 3.1 gm/dl (3.4-5.0); ALKALINE PHOSPHATASE 61 U/L (45-117); ALT/SGPT 52 U/L (12-78); AST/SGOT 36 U/L (15-37); BLOOD UREA NITROGEN 14 mg/dl (7-18); CALCIUM 9.1 mg/dl (8.5-10.1); CARBON DIOXIDE 27 mmol/L (21-32); CREATININE 0.92 mg/dl (0.60-1.20); GLUCOSE 405 mg/dl (70-99); LIPASE 134 U/L (73-393); SODIUM 136 mmol/L (136-145); TOTAL PROTEIN 7.2 gm/dl (6.4-8.2)
[2017-08-16] MEDS ORDERED: NovoLIN-R INSULIN PER UNIT CHARGE IV STA (17:52)
[2017-08-16] MEDS ORDERED: SODIUM CHLORIDE 0.9% 500ML 500 ML IV STA (17:52)
[2017-08-16] MEDS ORDERED: GLUCAGON FOR INJ 1 MG VIAL SQ PRN (19:15)
[2017-08-16] MEDS ORDERED: GLUCOSE 10 TABS/TUBE PO PRN (19:15)
[2017-08-16] MEDS ORDERED: GLUCOSE 40% GEL 15 GM TUBE PO PRN (19:15)
[2017-08-16] MEDS ORDERED: LABETALOL HCL IV 5 MG/ML 20ML IV STA ×2 (19:32→20:05)
--- NOTE | 2017-08-16 19:43 | DIAGNOSTIC IMAGING REPORT ---
ABDOMEN AND PELVIS CT WITH ORAL CONTRAST CT DOSE: 2242.98 mGy.cm HISTORY: Right lower quadrant abdominal pain. TECHNIQUE: Multiaxial CT images of the abdomen and pelvis were performed following the use of oral contrast. A dose lowering technique was utilized adhering to the principles of ALARA. COMPARISON STUDY: Abdomen and pelvis CT 05/16/2016. Outside hospital chest CT 05/13/2017. FINDINGS: Stable 8 mm nodule within the right middle lobe. Calcified granulomas within the right lower lobe and calcified subcarinal and right hilar lymph nodes. Bibasilar subsegmental atelectasis. No pneumoperitoneum. No pneumatosis. No suspicious lytic or blastic osseous lesions. Small fat-containing umbilical hernia. A single enlarged distal periesophageal lymph node, unchanged. This measures 16 x 12 mm. A 2 cm diverticulum at the second portion of the duodenum. Hepatic steatosis. Stable 5 mm gallstone at the neck of the gallbladder. Otherwise, the gallbladder is unremarkable. A few calcified granulomas within the spleen. The adrenal glands and pancreas are unremarkable. No retroperitoneal lymphadenopathy. No renal or ureteral calculi. No hydronephrosis. The bladder, uterus, bilateral adnexa are unremarkable. Colonic diverticulosis. No bowel wall thickening or obstruction. The appendix is not identified and reportedly surgically absent. Tiny hernia within the right abdominal wall containing a single diverticulum. No associated inflammatory change. This is best seen on image 311. IMPRESSION: 1. No bowel wall thickening or obstruction. 2. Extensive colonic diverticulosis. No evidence for diverticulitis. 3. No renal or ureteral calculi. No hydronephrosis. 4. Cholelithiasis, unchanged. 5. Incidental note is made of a tiny right lateral abdominal wall hernia containing a single cecal diverticulum. No associated inflammatory change. 6. Stable 8 mm nodule within the right middle lobe. 7. No change in the single enlarged periesophageal lymph node. Electronically signed by: Agapito Lentz M.D. 08/16/2017 7:41 PM Dictated Date/Time: 08/16/2017 7:30 PM
--- NOTE | 2017-08-16 21:03 | History and Physical ---
History & Physical Date & Time of Service: Aug 16, 2017 at 20:57 Chief Complaint: High Bp, Diverticulitis Primary Care Physician: Lucila Rojas M.D. History of Present Illness Source: patient, hospital records 71 year old female with PMHx of diabetes type 2, GERD, diverticulosis, HTN, HLD , and PMR admitted with right sided abdominal pain, severe HTN and uncontrolled DM. Patient has been having outpatient management for diverticulitis. Despite 2 courses of Augmentin, pain in right lower abdomen persists. No fevers/chills. No nausea or vomiting. Having some diarrhea. Flank pain secondary to recent bilateral L4-L5 shingles. No urinary symptoms. Patient awoke with sweating and hear racing and decided to check BP, which was found to be 216/106. Heart racing and sweating resolved in 10 min and patient states this has occurred in the past with high blood sugars, although in her stress, she forget to check her sugars this AM. She took her morning losartan and atenolol, and an increased dose of her atenolol in the afternoon, but this did not reduce BP significantly. She states her BP at baseline is 130-140 systolic in the office, she normally does not check at home. She denies headaches, vision changes. Patient states her sugars have been poorly controlled, for the last several months, coinciding with the change of steroids from prednisone to methylprednisone for PMR as per her core analysis operator, Dr. Casillas. Her PCP is aware and has referred her to diabetic management (first appt coming up in August). Patient did take her AM insulin and despite minimal food intake, was found to have BG 405 in the ED. In the ED, patient was treated with IV labetalol and IV insulin. Morphine and Zofran also helped to improve her symptoms. She otherwise denies palpitations, dyspnea, lower extremity swelling or rashes. ROS is unremarkable except as noted above. Past Medical/Surgical History Medical Problems: Diabetes mellitus, type 2 HTN HLD GERD Diverticulosis Kidney stone Protruded lumbar disc TIA (transient ischemic attack) x 2 PMR - dx: 04/04 Sjogren's - dx: 04/04 Giant cell arteritis - dx: 2 months ago Shingles - dx: 1 months ago Surgical Problems: History of appendectomy Breast cancer s/p lumpectomy and radiation tx R knee torn meniscus s/p artscopy (2013) Renal stones s/p lithotripsy Family History Cancer Diabetes mellitus Gallbladder disease Hypertension Lung disease Social History Smoking Status: Never Smoker Smokeless Tobacco Use: No Alcohol Use: none Drug Use: none Marital Status: Housing status: lives with family Occupational Status: employed Immunizations History of Influenza Vaccine: No History of Tetanus Vaccine?: Yes History of Pneumococcal: 2nd dose due 2012 Pneumococcal Date: Aug 01, 2006 History of Hepatitis B Vaccine: No Multi-Drug Resistant Organisms History of MDRO: No Allergies Coded Allergies: Iodinated Contrast Media (Verified Allergy, Severe, ANAPHYLAXIS, CONVULSIONS, 09/15/16) Metronidazole (Verified Allergy, Intermediate, HIVES, 09/15/16) Quinolones (Verified Allergy, Intermediate, HIVES, 09/15/16) Adhesives (Verified Allergy, Unknown, SEVERE BURNING BLISTERS, 08/16/17) Ciprofloxacin (Verified Allergy, Unknown, hives, 09/15/16) pt Sulfamethoxazole w/Trimethoprim (Verified Allergy, Unknown, hives, 09/15/16 ) pt Sumatriptan (Verified Allergy, Unknown, SOB,INCREASED HEARTRATE, 09/15/16) Tramadol (Verified Allergy, Unknown, FATIGUE, 09/15/16) Home Medications Scheduled Allopurinol (Zyloprim), 100 MG PO DAILY Amoxicillin & Pot Clavulanate (Augmentin 500MG), 1 TAB PO BID Aspirin (Aspirin 81), 81 MG PO DAILY Atenolol (Atenolol), 50 MG PO QAM Atenolol (Atenolol), 25 MG PO QPM Gabapentin (Neurontin), 300 MG PO TID Insulin Human Isophan/Regular (Novolin 70/30), 100 UNITS SC QAM Insulin Human Isophan/Regular (Novolin 70/30), 85 UNITS SC QPM Losartan Potassium (Cozaar), 100 MG PO DAILY Magnesium Oxide (Mag-Ox), 400 MG PO BID Metformin Hcl (Glucophage), 1,000 MG PO BID Methylprednisolone (Medrol), 2 MG PO DAILY Pantoprazole (Protonix), 40 MG PO BID Potassium Citrate (Alkalinizer (Potassium Citrate ER), 2,160 MG PO BID Scheduled PRN Furosemide (Lasix), 20 MG PO DAILY PRN for swelling Physical Exam Vital Signs Date Time Temp Pulse Resp B/P (MAP) Pulse Ox O2 Delivery O2 Flow Rate FiO2 08/16/17 20:37 178/67 08/16/17 20:30 71 20 187/89 93 Nasal Cannula 2.0 08/16/17 20:16 201/82 08/16/17 20:11 227/91 08/16/17 20:07 229/95 08/16/17 20:01 225/101 08/16/17 20:00 74 18 97 08/16/17 19:56 233/83 08/16/17 19:51 212/75 08/16/17 19:47 206/77 08/16/17 19:41 213/147 08/16/17 19:30 70 19 95 08/16/17 19:23 216/73 08/16/17 19:00 57 22 97 08/16/17 18:39 75 20 195/73 97 Nasal Cannula 2.0 08/16/17 18:17 97 Nasal Cannula 2.0 08/16/17 18:16 89 Room Air 08/16/17 17:49 73 18 192/92 95 Room Air 08/16/17 16:55 67 08/16/17 16:12 36.8 67 20 232/80 93 Room Air General Appearance: WD/WN, no apparent distress Head: normocephalic, atraumatic Eyes: normal inspection ENT: hearing grossly normal, pharynx normal Neck: supple, no adenopathy, thyroid normal Respiratory/Chest: lungs clear, normal breath sounds, no respiratory distress, no accessory muscle use Cardiovascular: regular rate, rhythm, no edema, no JVD, normal peripheral pulses, + diastolic murmur (3/6) Abdomen/GI: normal bowel sounds, soft, + tenderness (In RLQ, felt just superior to groin line) Back: normal inspection, no CVA tenderness, no muscle spasm Extremities/Musculoskelatal: no calf tenderness, normal capillary refill Neurologic/Psych: alert, normal mood/affect, oriented x 3 Skin: normal color, warm/dry, no rash Diagnostics Laboratory Results Results Past 24 Hours Test 08/16/17 16:58 08/16/17 17:00 Range/Units Urine Color YELLOW Urine Appearance CLEAR CLEAR Urine pH 5.0 4.5-7.5 Urine Specific [place] 1.027 1.000-1.030 Urine Protein 2+ NEG Urine Glucose (UA) 3+ NEG Urine Ketones NEG NEG Urine Occult Blood NEG NEG Urine Nitrite NEG NEG Urine Bilirubin NEG NEG Urine Urobilinogen NEG NEG Urine Leukocyte Esterase NEG NEG Urine WBC (Auto) 1-5 0-5 /hpf Urine RBC (Auto) 0-4 0-4 /hpf Urine Hyaline Casts (Auto) 1-5 0-5 /lpf Urine Epithelial Cells (Auto) 10-20 0-5 /lpf Urine Bacteria (Auto) NEG NEG White Blood Count 12.29 4.8-10.8 K/uL Red Blood Count 4.44 4.2-5.4 M/uL Hemoglobin 11.3 12.0-16.0 g/dL Hematocrit 35.8 37-47 % Mean Corpuscular Volume 80.6 80-100 fL Mean Corpuscular Hemoglobin 25.5 25-34 pg Mean Corpuscular Hemoglobin Concent 31.6 32-36 g/dl Platelet Count 335 130-400 K/uL Mean Platelet Volume 10.6 7.4-10.4 fL Neutrophils (%) (Auto) 74.5 % Lymphocytes (%) (Auto) 14.2 % Monocytes (%) (Auto) 5.4 % Eosinophils (%) (Auto) 4.2 % Basophils (%) (Auto) 0.2 % Neutrophils # (Auto) 9.16 1.4-6.5 K/uL Lymphocytes # (Auto) 1.74 1.2-3.4 K/uL Monocytes # (Auto) 0.66 0.11-0.59 K/uL Eosinophils # (Auto) 0.52 0-0.5 K/uL Basophils # (Auto) 0.03 0-0.2 K/uL RDW Standard Deviation 47.6 36.4-46.3 fL RDW Coefficient of Variation 16.3 11.5-14.5 % Immature Granulocyte % (Auto) 1.5 % Immature Granulocyte # (Auto) 0.18 0.00-0.02 K/uL Prothrombin Time 10.5 9.0-12.0 SECONDS Prothromb Time International Ratio 1.0 0.9-1.1 Activated Partial Thromboplast Time 24.5 21.0-31.0 SECONDS Partial Thromboplastin Ratio 0.9 Sodium Level 136 136-145 mmol/L Potassium Level 4.0 3.5-5.1 mmol/L Chloride Level 100 98-107 mmol/L Carbon Dioxide Level 27 21-32 mmol/L Anion Gap 9.0 3-11 mmol/L Blood Urea Nitrogen 14 7-18 mg/dl Creatinine 0.92 0.60-1.20 mg/dl Est Creatinine Clear Calc Drug Dose 73.8 ml/min Estimated GFR () 72.6 Estimated GFR (Non- 62.6 BUN/Creatinine Ratio 15.3 10-20 Random Glucose 405 70-99 mg/dl Calcium Level 9.1 8.5-10.1 mg/dl Total Bilirubin 0.3 0.2-1 mg/dl Direct Bilirubin < 0.1 0-0.2 mg/dl Aspartate Amino Transf (AST/SGOT) 36 15-37 U/L Alanine Aminotransferase (ALT/SGPT) 52 12-78 U/L Alkaline Phosphatase 61 45-117 U/L Troponin I < 0.015 0-0.045 ng/ml Total Protein 7.2 6.4-8.2 gm/dl Albumin 3.1 3.4-5.0 gm/dl Lipase 134 73-393 U/L Beta-Hydroxybutyric Acid 4.13 0.2-2.81 mg/dL Microbiology Results 08/16/17 Shiga Toxin Test, Received Pending 08/16/17 Stool Culture, Received Pending 08/16/17 C.difficile Toxin B Gene (PCR) - Final, Complete No C. difficile toxin B gene detected Diagnostic Radiology ABDOMEN AND PELVIS CT WITH ORAL CONTRAST CT DOSE: 2242.98 mGy.cm HISTORY: Right lower quadrant abdominal pain. TECHNIQUE: Multiaxial CT images of the abdomen and pelvis were performed following the use of oral contrast. A dose lowering technique was utilized adhering to the principles of ALARA. COMPARISON STUDY: Abdomen and pelvis CT 05/16/2016. Outside hospital chest CT 05/13/2017. FINDINGS: Stable 8 mm nodule within the right middle lobe. Calcified granulomas within the right lower lobe and calcified subcarinal and right hilar lymph nodes. Bibasilar subsegmental atelectasis. No pneumoperitoneum. No pneumatosis. No suspicious lytic or blastic osseous lesions. Small fat-containing umbilical hernia. A single enlarged distal periesophageal lymph node, unchanged. This measures 16 x 12 mm. A 2 cm diverticulum at the second portion of the duodenum. Hepatic steatosis. Stable 5 mm gallstone at the neck of the gallbladder. Otherwise, the gallbladder is unremarkable. A few calcified granulomas within the spleen. The adrenal glands and pancreas are unremarkable. No retroperitoneal lymphadenopathy. No renal or ureteral calculi. No hydronephrosis. The bladder, uterus, bilateral adnexa are unremarkable. Colonic diverticulosis. No bowel wall thickening or obstruction. The appendix is not identified and reportedly surgically absent. Tiny hernia within the right abdominal wall containing a single diverticulum. No associated inflammatory change. This is best seen on image 311. IMPRESSION: 1. No bowel wall thickening or obstruction. 2. Extensive colonic diverticulosis. No evidence for diverticulitis. 3. No renal or ureteral calculi. No hydronephrosis. 4. Cholelithiasis, unchanged. 5. Incidental note is made of a tiny right lateral abdominal wall hernia containing a single cecal diverticulum. No associated inflammatory change. 6. Stable 8 mm nodule within the right middle lobe. 7. No change in the single enlarged periesophageal lymph node. EKG Normal sinus rhythm with sinus arrhythmia Possible Left atrial enlargement Left ventricular hypertrophy HR 67, QTc 408 Impression Assessment and Plan 71 year old female with PMHx of diabetes type 2, GERD, diverticulosis, HTN, HLD , and PMR admitted with right sided abdominal pain, severe HTN and uncontrolled DM. Right sided abdominal pain possible secondary to diverticulitis- patient feels similar to previous episodes of diverticulitis, and steroid use can possibly mask CT findings - Abx: Ceftriaxone and clindamycin (given numerous allergies) - C.diff negative, trace other stool tests HTN urgency - Continue losartan, furosemide, atenolol increased to 50mg BID - IV metoprolol 5mg PRN SBP >160 - IV hydralazine 10mg PRN SBP >180 Uncontrolled type II DM- last HbA1c 08/10/17 is 10.1 - Hold 70/30 of Novolin-R and metformin - patient amenable to try new regimen - Ordered Lantus 30u BID + ISS - Accu-checks ac/hs - Diabetic education Shingles - Continue gabapentin 300mg TID - Ordered lidocaine patch for the day, and voltaren gel HS PMR - Continue methylprednisolone 2mg daily CAD - Continue aspirin GERD - Continue pantoprazole Gout - Continue allpurinol VTE ppx - Enoxaparin SC FULL CODE Attending addendum: I have physically seen this patient, have supervised the medical residents activities, and agree with the H&P unless as otherwise noted. Assessment and Plan: Right-sided abdominal pain/diverticulitis history/normal CT-- Place on empiric treatment with ceftriaxone and clindamycin C. difficile toxin assay negative, with culture pending Full liquid diet and advance as tolerated Hypertensive urgency/CAD-- Continue losartan 100 mg daily, and furosemide. Increase atenolol from 50 mg in the morning and 25 mg in evening to 50 mg twice a day Lopressor 5 mg IV when necessary and hydralazine 10 mg IV when necessary as directed . Patient reports that pain is controlled at this time, and did have elevated blood pressure at home. Diabetes mellitus-- Changing from 7030 to Lantus as noted per patient request PMR-- Continue methylprednisolone 2 mg daily. If shows signs of adrenal insufficiency , may give stress dose steroids at that time Level of Care Telemetry Advanced Directives Existing Advance Directive: Yes Existing Living Will: Yes Existing Power of Geoint Analyst: Yes ( Zak Mortensen) Existing Health Care Proxy: Yes Resuscitation Status FULL RESUSCITATION VTE Prophylaxis VTE Risk Assessment Done? Y/N: Yes Risk Level: Moderate Given or contraindicated: Enoxaparin (Lovenox)SQ Note Total Time: Critical Care 30 - 74 minutes Resident Tracking Resident Involvement: Resident Care Provided Care Provided: Adult Hospital Medicine
[2017-08-16] MEDS ORDERED: DICLOFENAC SOD 1% GEL 100 GM TUBE EXT ONE (21:49)
[2017-08-16] MEDS ORDERED: POLYETHYLENE (MIRALAX) 17 GM PACK PO PRN (22:00)
[2017-08-16] MEDS ORDERED: ONDANSETRON INJ 2 MG/ML 2 ML VIAL IV PRN (22:00)
[2017-08-16] MEDS ORDERED: MAGNESIUM HYDROXIDE SUSP 30 ML UDC PO PRN (22:00)
[2017-08-16] MEDS ORDERED: ALUMINUM/MAGNESIUM/SIMETH (MAALOX MAX) 30 ML UDC PO PRN (22:00)
[2017-08-16] MEDS ORDERED: FUROSEMIDE 20 MG TAB PO PRN (22:00)
[2017-08-16] MEDS ORDERED: NITROGLYCERIN 0.4 MG SL PER TAB CHARGE SL PRN (22:00)
[2017-08-16 22:40] VITALS: BP 156/70; PULSE 77; TEMP 36.9; O2SAT 92; BMI 41.4
--- NOTE | 2017-08-16 23:00 | EMERGENCY ROOM VISIT NOTE ---
History Report prepared by Sweetie: Kristin Nieves Under the Supervision of: Dr. Forrest Rivera M.D. First contact with patient: 16:30 Chief Complaint: HYPERTENSION Stated Complaint: HIGH BP, DIVERTICULITIS History of Present Illness The patient is a 71 year old female who presents to the Emergency Room with complaints of persistent high blood pressure since 0 this morning. She woke up this morning drenched in sweat and her heart pounding. She denies any chest pain or chest tightness, squeezing or pressure. She denies any shortness of breath. She notes her blood pressure was 216/108, though it went down after she took her blood pressure medication at 5 AM. She notes that she has been hospitalized once in the past for HTN. She states that her blood pressure has still been higher than normal all day. She went to an urgent care and was advised to come to the ED. The patient has a history of shingles and diverticulitis. She notes her shingles pain is located on her buttocks and has healed over. She notes baseline nerve pain from the shingles. She states a new flaring pain in her lower abdomen that began in her LLQ in mid-June and has migrated to her RLQ. She has a history of appendectomy. She notes her pain in her abdomen has been constant. She currently rates her discomfort an 8/10 in severity. She has been on antibiotics since July 11, 2017 and is still currently being treated. She was placed on Augmentin for presumed diverticulitis. She notes persistent diarrhea for four days. She denies any vomiting. She denies any history of C. diff colitis. She has a history of giant- cell arteritis and polymyalgia rheumatica. She also notes a headache over the last week, though she has taken Advil and no longer has a headache. She states she normally gets these types of headaches and it is not unusual for her. She is currently taking Gabapentin. Source of History: patient Onset: 399 this morning Position: other (global ) Symptom Intensity: 216/108 Quality: other (high blood pressure) Timing: other (persistent) Associated Symptoms: + headache (resolved), + abdominal pain (LLQ and RLQ), + diarrhea, No chest pain (and no chest pressure), No SOB, No vomiting Note: She notes sweating and heart pounding. She notes shingles pain on her buttocks. Review of Systems See HPI for pertinent positives & negatives. A total of 10 systems reviewed and were otherwise negative. 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 lumbar disc (13) Renal calculus, right (14) TIA (transient ischemic attack) (15) Umbilical Hernia (16) Uncontrolled hypertension Surgical Problems: (1) History of appendectomy Family History Cancer Diabetes mellitus Gallbladder disease Hypertension Lung disease Social History Smoking Status: Never Smoker Alcohol Use: none Drug Use: none Marital Status: Occupation Status: employed Current/Historical Medications Scheduled Allopurinol (Zyloprim), 100 MG PO DAILY Amoxicillin & Pot Clavulanate (Augmentin 500MG), 1 TAB PO BID Aspirin (Aspirin 81), 81 MG PO DAILY Atenolol (Atenolol), 50 MG PO QAM Atenolol (Atenolol), 25 MG PO QPM Gabapentin (Neurontin), 300 MG PO TID Insulin Human Isophan/Regular (Novolin 70/30), 100 UNITS SC QAM Insulin Human Isophan/Regular (Novolin 70/30), 85 UNITS SC QPM Losartan Potassium (Cozaar), 100 MG PO DAILY Magnesium Oxide (Mag-Ox), 400 MG PO BID Metformin Hcl (Glucophage), 1,000 MG PO BID Methylprednisolone (Medrol), 2 MG PO DAILY Pantoprazole (Protonix), 40 MG PO BID Potassium Citrate (Alkalinizer (Potassium Citrate ER), 2,160 MG PO BID Scheduled PRN Furosemide (Lasix), 20 MG PO DAILY PRN for swelling Allergies Coded Allergies: Iodinated Contrast Media (Verified Allergy, Severe, ANAPHYLAXIS, CONVULSIONS, 09/15/16) Metronidazole (Verified Allergy, Intermediate, HIVES, 09/15/16) Quinolones (Verified Allergy, Intermediate, HIVES, 09/15/16) Adhesives (Verified Allergy, Unknown, SEVERE BURNING BLISTERS, 08/16/17) Ciprofloxacin (Verified Allergy, Unknown, hives, 09/15/16) pt Sulfamethoxazole w/Trimethoprim (Verified Allergy, Unknown, hives, 09/15/16 ) pt Sumatriptan (Verified Allergy, Unknown, SOB,INCREASED HEARTRATE, 09/15/16) Tramadol (Verified Allergy, Unknown, FATIGUE, 09/15/16) Physical Exam Vital Signs Date Time Temp Pulse Resp B/P (MAP) Pulse Ox O2 Delivery O2 Flow Rate FiO2 08/16/17 21:42 73 19 08/16/17 21:12 74 19 08/16/17 21:05 71 08/16/17 20:51 167/54 08/16/17 20:42 69 18 94 Nasal Cannula 2.0 08/16/17 20:37 178/67 08/16/17 20:30 71 20 187/89 93 Nasal Cannula 2.0 08/16/17 20:16 201/82 08/16/17 20:11 227/91 08/16/17 20:07 229/95 08/16/17 20:01 225/101 08/16/17 20:00 74 18 97 08/16/17 19:56 233/83 08/16/17 19:51 212/75 08/16/17 19:47 206/77 08/16/17 19:41 213/147 08/16/17 19:30 70 19 95 08/16/17 19:23 216/73 08/16/17 19:00 57 22 97 08/16/17 18:39 75 20 195/73 97 Nasal Cannula 2.0 08/16/17 18:17 97 Nasal Cannula 2.0 08/16/17 18:16 89 Room Air 08/16/17 17:49 73 18 192/92 95 Room Air 08/16/17 16:55 67 08/16/17 16:12 36.8 67 20 232/80 93 Room Air Physical Exam Constitutional: Vital signs reviewed. Hypertensive. Eyes: Pupils are equal round reactive to light. Conjunctiva are noninjected. ENT: Pharynx is clear without erythema or exudate. Mucous membranes are moist. Neck supple without meningeal signs. Respiratory: Clear to auscultation bilaterally. Breath sounds are equal bilaterally. Cardiovascular: Regular rate and rhythm. No rubs or gallops. GI: Soft, nondistended and RLQ tenderness, no guarding. Bowel sounds are present. Musculoskeletal: No peripheral edema. No lower extremity tenderness. Integumentary: No cyanosis. Neurological: The patient is awake and alert. No focal deficits. Psychiatric: Normal affect. Medical Decision & Procedures ER Provider Diagnostic Interpretation: Radiology results as stated below per my review and the radiologist's interpretation: ABDOMEN AND PELVIS CT WITH ORAL CONTRAST CT DOSE: 2242.98 mGy.cm HISTORY: Right lower quadrant abdominal pain. TECHNIQUE: Multiaxial CT images of the abdomen and pelvis were performed following the use of oral contrast. A dose lowering technique was utilized adhering to the principles of ALARA. COMPARISON STUDY: Abdomen and pelvis CT 05/16/2016. Outside hospital chest CT 05/13/2017. FINDINGS: Stable 8 mm nodule within the right middle lobe. Calcified granulomas within the right lower lobe and calcified subcarinal and right hilar lymph nodes. Bibasilar subsegmental atelectasis. No pneumoperitoneum. No pneumatosis. No suspicious lytic or blastic osseous lesions. Small fat-containing umbilical hernia. A single enlarged distal periesophageal lymph node, unchanged. This measures 16 x 12 mm. A 2 cm diverticulum at the second portion of the duodenum. Hepatic steatosis. Stable 5 mm gallstone at the neck of the gallbladder. Otherwise, the gallbladder is unremarkable. A few calcified granulomas within the spleen. The adrenal glands and pancreas are unremarkable. No retroperitoneal lymphadenopathy. No renal or ureteral calculi. No hydronephrosis. The bladder, uterus, bilateral adnexa are unremarkable. Colonic diverticulosis. No bowel wall thickening or obstruction. The appendix is not identified and reportedly surgically absent. Tiny hernia within the right abdominal wall containing a single diverticulum. No associated inflammatory change. This is best seen on image 311. IMPRESSION: 1. No bowel wall thickening or obstruction. 2. Extensive colonic diverticulosis. No evidence for diverticulitis. 3. No renal or ureteral calculi. No hydronephrosis. 4. Cholelithiasis, unchanged. 5. Incidental note is made of a tiny right lateral abdominal wall hernia containing a single cecal diverticulum. No associated inflammatory change. 6. Stable 8 mm nodule within the right middle lobe. 7. No change in the single enlarged periesophageal lymph node. Electronically signed by: Agapito Lentz M.D. 08/16/2017 7:41 PM Dictated Date/Time: 08/16/2017 7:30 PM Laboratory Results 08/16/17 17:00 Red Blood Count 4.44, Mean Corpuscular Volume 80.6, Mean Corpuscular Hemoglobin 25.5, Mean Corpuscular Hemoglobin Concent 31.6, Mean Platelet Volume 10.6, Neutrophils (%) (Auto) 74.5, Lymphocytes (%) (Auto) 14.2, Monocytes (%) (Auto) 5.4, Eosinophils (%) (Auto) 4.2, Basophils (%) (Auto) 0.2, Neutrophils # (Auto) 9.16, Lymphocytes # (Auto) 1.74, Monocytes # (Auto) 0.66, Eosinophils # (Auto) 0.52, Basophils # (Auto) 0.03 08/16/17 17:00 Test 08/16/17 16:58 08/16/17 17:00 Urine Color YELLOW Urine Appearance CLEAR (CLEAR) Urine pH 5.0 (4.5-7.5) Urine Specific [place] 1.027 (1.000-1.030) Urine Protein 2+ (NEG) Urine Glucose (UA) 3+ (NEG) Urine Ketones NEG (NEG) Urine Occult Blood NEG (NEG) Urine Nitrite NEG (NEG) Urine Bilirubin NEG (NEG) Urine Urobilinogen NEG (NEG) Urine Leukocyte Esterase NEG (NEG) Urine WBC (Auto) 1-5 /hpf (0-5) Urine RBC (Auto) 0-4 /hpf (0-4) Urine Hyaline Casts (Auto) 1-5 /lpf (0-5) Urine Epithelial Cells (Auto) 10-20 /lpf (0-5) Urine Bacteria (Auto) NEG (NEG) White Blood Count 12.29 K/uL (4.8-10.8) Red Blood Count 4.44 M/uL (4.2-5.4) Hemoglobin 11.3 g/dL (12.0-16.0) Hematocrit 35.8 % (37-47) Mean Corpuscular Volume 80.6 fL (80-100) Mean Corpuscular Hemoglobin 25.5 pg (25-34) Mean Corpuscular Hemoglobin Concent 31.6 g/dl (32-36) Platelet Count 335 K/uL (130-400) Mean Platelet Volume 10.6 fL (7.4-10.4) Neutrophils (%) (Auto) 74.5 % Lymphocytes (%) (Auto) 14.2 % Monocytes (%) (Auto) 5.4 % Eosinophils (%) (Auto) 4.2 % Basophils (%) (Auto) 0.2 % Neutrophils # (Auto) 9.16 K/uL (1.4-6.5) Lymphocytes # (Auto) 1.74 K/uL (1.2-3.4) Monocytes # (Auto) 0.66 K/uL (0.11-0.59) Eosinophils # (Auto) 0.52 K/uL (0-0.5) Basophils # (Auto) 0.03 K/uL (0-0.2) RDW Standard Deviation 47.6 fL (36.4-46.3) RDW Coefficient of Variation 16.3 % (11.5-14.5) Immature Granulocyte % (Auto) 1.5 % Immature Granulocyte # (Auto) 0.18 K/uL (0.00-0.02) Prothrombin Time 10.5 SECONDS (9.0-12.0) Prothromb Time International Ratio 1.0 (0.9-1.1) Activated Partial Thromboplast Time 24.5 SECONDS (21.0-31.0) Partial Thromboplastin Ratio 0.9 Anion Gap 9.0 mmol/L (3-11) Est Creatinine Clear Calc Drug Dose 73.8 ml/min Estimated GFR () 72.6 Estimated GFR (Non- 62.6 BUN/Creatinine Ratio 15.3 (10-20) Calcium Level 9.1 mg/dl (8.5-10.1) Total Bilirubin 0.3 mg/dl (0.2-1) Direct Bilirubin < 0.1 mg/dl (0-0.2) Aspartate Amino Transf (AST/SGOT) 36 U/L (15-37) Alanine Aminotransferase (ALT/SGPT) 52 U/L (12-78) Alkaline Phosphatase 61 U/L (45-117) Troponin I < 0.015 ng/ml (0-0.045) Total Protein 7.2 gm/dl (6.4-8.2) Albumin 3.1 gm/dl (3.4-5.0) Lipase 134 U/L (73-393) Beta-Hydroxybutyric Acid 4.13 mg/dL (0.2-2.81) Laboratory results as reviewed by me. Medications Administered Medications (Trade) Dose Ordered Sig/Noemi Route Start Time Stop Time Status Last Admin Dose Admin Morphine Sulfate (MoRPHine SULFATE INJ) 4 mg ONE STAT IV 08/16/17 16:44 08/16/17 16:48 DC 08/16/17 17:16 4 MG Ondansetron HCl (Zofran Inj) 4 mg NOW STAT IV 08/16/17 16:44 08/16/17 16:48 DC 08/16/17 17:16 4 MG Sodium Chloride 500 ml @ 999 mls/hr Q31M STAT IV 08/16/17 17:52 08/16/17 18:22 DC 08/16/17 18:31 999 MLS/HR Insulin Human Regular (novoLIN-R U-100 PER UNIT) 10 units NOW STAT IV 08/16/17 17:52 08/16/17 17:53 DC 08/16/17 18:30 10 UNITS Labetalol HCl (Normodyne IV) 10 mg NOW STAT IV 08/16/17 19:32 08/16/17 19:33 DC 08/16/17 19:43 10 MG Labetalol HCl (Normodyne IV) 10 mg NOW STAT IV 08/16/17 20:05 08/16/17 20:06 DC 08/16/17 20:12 10 MG ECG Indication: other (high blood pressure) Rate (beats per minute): 69 Rhythm: normal sinus Findings: no ectopy, other (LVH) Change: Patient's electrocardiogram per my interpretation. ED Course 163: The patient was evaluated in room A7. A complete history and physical exam was performed. 1643: Ordered Zofran 4 mg IV and Morphine Sulfate 4 mg IV 175: Ordered Insulin Human Regular 10 units IV and Sodium Chloride 500 ml @ 999 mls/hr IV 1800: I reassessed the patient at this time. She is feeling better. I discussed hyperglycemia treatment plan with her. She states that she has not eaten much today, though she took insulin. 0: The patient's blood sugar is 261 and her blood pressure is recorded at 216/73. 1931: Ordered Labetalol HCl 10 mg IV 2002: I reassessed the patient at this time. She is still hypertensive at 225. 2004: Ordered Labetalol HCl 10 mg IV 2021: I spoke with Dr. Lisa Benitez, physician resident. We discussed the patient' s case. The patient will be evaluated by the [facility] for further management. Medical Decision This is a 71-year-old female who presents with elevated blood pressure and lower abdominal pain with diarrhea. Differential diagnosis includes C. difficile colitis, diverticulitis, abscess, perforation, electrolyte abnormality. I did perform a limited focused review of portions of the patient' s old chart on the electronic medical record. The patient was seen April 2017 for chest pain and was discharged after an ED evaluation. I did evaluate the patient as noted above. IV access was established. The patient was placed on a continuous diagnostic cardiac sonographer. I did order and personally review the patient's 12-lead EKG as described above. I did treat patient with morphine and Zofran IV. I did order a urinalysis which was unremarkable. I did order and review the patient's blood work as noted in the electronic medical record. Her white blood cell count is elevated. Glucose is over 400. She is not acidotic. I did treat her with normal saline IV as well as insulin IV. Her blood sugar did come down to the 250s. I did order a CT of the abdomen and pelvis. I did review the images myself as well as the radiology report as described above. There is no evidence of acute process. She does have a tiny abdominal wall hernia without inflammation. C. difficile testing was negative. I did reassess the patient. I did discuss the test results with the patient. Her blood pressure worsened while in the emergency department. I did treat her with 2 doses of labetalol IV. She did have some improvement of her blood pressure. She will be hospitalized for further care and evaluation. I did discuss case with the hospitalist and caseworker. Medication Reconcilliation Current Medication List: was personally reviewed by me Blood Pressure Screening Patient's blood pressure: Elevated blood pressure Blood pressure disposition: Referred to PCP Consults Time Called: 2006 Consulting Physician: Dr. Lisa Benitez, physician resident Returned Call: [address] Lisa Benitez, physician resident. We discussed the patient's case. The patient will be evaluated by the [facility] for further management. Impression Primary Impression: Poorly-controlled hypertension Additional Impressions: Palpitations Lower abdominal pain Hyperglycemia Diarrhea Scribe Attestation The scribe's documentation has been prepared under my direct and personally reviewed by me in its entirety. I confirm that the note above accurately reflects all work, treatment, procedures, and medical decision making performed by me. Departure Information Dispostion Being Evaluated By Hospitalist Referrals Lucila Rojas M.D. (PCP) Patient Instructions My [facility] Problem Qualifiers Additional Impressions: Diarrhea Diarrhea type: unspecified type Qualified Codes: R19.7 - Diarrhea, unspecified
[2017-08-16] MEDS ORDERED: IV FLUIDS COMPLETED PRN (23:30)
[2017-08-16] MEDS: CEFTRIAXONE SOD INJ 1,000 MG in DEXTROSE 5% 50ML 50 ML IV SCH (23:57)
[2017-08-16] MEDS: ENOXAPARIN 40 MG/0.4 ML SYR SC SCH (23:58)
[2017-08-16] MEDS: CLINDAMYCIN IV 900 MG in DEXTROSE 5% 100ML 100 ML IV SCH (23:58)
[2017-08-17] VITALS (13 sets, daily range): BP systolic 156–192; BP diastolic 54–83; PULSE 66–73; TEMP 36.6–36.9; O2SAT 90–94; BMI 41.4
[2017-08-17] MEDS ORDERED: METOPROLOL TARTRATE 1 MG/ML VIAL IV. SCH
[2017-08-17] MEDS ORDERED: METOPROLOL TARTRATE 1 MG/ML VIAL IV PRN
[2017-08-17 05:52] LABS: HEMOGLOBIN 10.5 g/dL (12.0-16.0); MEAN CELL VOLUME 81.1 fL (80-100); MEAN CORPUSCULAR HEMOGLOBIN 25.1 pg (25-34); MEAN CORPUSCULAR HGB CONC 30.9 g/dl (32-36); MEAN PLATELET VOLUME 10.6 fL (7.4-10.4); NUCLEATED RED BLOOD CELL ABS 0.02 K/uL (0-0); PLATELET COUNT 286 K/uL (130-400); RED CELL DISTRIBUTION WIDTH CV 16.2 % (11.5-14.5); RED CELL DISTRIBUTION WIDTH SD 48.1 fL (36.4-46.3); WHITE BLOOD COUNT 12.23 K/uL (4.8-10.8)
[2017-08-17 06:17] LABS: CALCIUM 8.6 mg/dl (8.5-10.1); CREATININE 0.77 mg/dl (0.60-1.20); POTASSIUM 3.7 mmol/L (3.5-5.1)
[2017-08-17] MEDS: ACETAMINOPHEN 325 MG TAB PO PRN (06:31)
--- NOTE | 2017-08-17 06:57 | Family Medicine Progress Note ---
Progress Note Date of Service Aug 17, 2017. Subjective Pt evaluation today including: conversation w/ patient, physical exam, chart review, lab review, conversation w/ leasing sales consultant, review of inpatient medication list Pain: 3 PO Intake: good Voiding: no voiding problems Patient with mild abdominal pain, worse after eating this morning was able to tolerate lunch without any abdominal pain 1 episode of diarrhea this morning without any blood Constitutional: No fever, No chills Respiratory: No cough, No sputum, No shortness of breath Cardiovascular: + edema, No chest pain, No palpitations Abdomen: + pain, + diarrhea, No nausea, No vomiting, No constipation, No GI bleeding Musculoskeletal: No joint pain, No muscle pain, No calf pain Female : No dysuria, No urinary frequency, No hematuria Medications Current Inpatient Medications Medications (Trade) Dose Ordered Sig/Noemi Route Start Time Stop Time Status Last Admin Dose Admin Enoxaparin Sodium (Lovenox Inj) 40 mg Q24H SC 08/16/17 22:00 09/15/17 21:59 08/16/17 23:58 40 MG Acetaminophen (Tylenol Tab) 650 mg Q4H PRN PO 08/16/17 22:00 09/15/17 21:59 08/17/17 06:31 650 MG Al Hydrox/Mg Hydrox/Simethicone (Maalox Max Susp) 15 ml Q4H PRN PO 08/16/17 22:00 09/15/17 21:59 Magnesium Hydroxide (Milk Of Magnesia Susp) 30 ml Q12H PRN PO 08/16/17 22:00 09/15/17 21:59 Ondansetron HCl (Zofran Inj) 4 mg Q6H PRN IV 08/16/17 22:00 09/15/17 21:59 Nitroglycerin (Nitrostat Tab) 0.4 mg UD PRN SL 08/16/17 22:00 09/15/17 21:59 Polyethylene (Miralax Powder Packet) 17 gm DAILY PRN PO 08/16/17 22:00 09/15/17 21:59 Hydralazine HCl (HydrALAZINE INJ) 10 mg Q4 PRN IV. 08/16/17 22:00 09/15/17 21:59 08/17/17 15:37 10 MG Diclofenac Sodium (Voltaren 1% Top Gel) 1 appln HS EXT 08/17/17 21:00 09/16/17 20:59 Lidocaine (Lidoderm Patch 5%) 1 patch QAM TD 08/17/17 09:00 09/16/17 08:59 Miscellaneous (Remove Lidoderm Patch) 1 ea DAILY@21 N/A 08/17/17 21:00 09/16/17 20:59 Allopurinol (Zyloprim Tab) 100 mg DAILY PO 08/17/17 09:00 09/16/17 08:59 Aspirin (Ecotrin Tab) 81 mg DAILY PO 08/17/17 09:00 09/16/17 08:59 08/17/17 09:01 81 MG Furosemide (Lasix Tab) 20 mg DAILY PRN PO 08/16/17 22:00 09/15/17 21:59 Gabapentin (Neurontin Cap) 300 mg TID PO 08/17/17 09:00 09/16/17 08:59 08/17/17 12:49 300 MG Losartan Potassium (coZAAR TAB) 100 mg DAILY PO 08/17/17 09:00 09/16/17 08:59 08/17/17 09:01 100 MG Magnesium Oxide (Mag-Ox Tab) 400 mg BID PO 08/17/17 09:00 09/16/17 08:59 08/17/17 09:01 400 MG Methylprednisolone (Medrol Tab) 2 mg DAILY PO 08/17/17 09:00 09/16/17 08:59 08/17/17 09:01 2 MG Pantoprazole Sodium (Protonix Tab) 40 mg BID PO 08/17/17 09:00 09/16/17 08:59 08/17/17 09:01 40 MG Potassium Citrate (Urocit-K Tab) 20 meq BID PO 08/17/17 09:00 09/16/17 08:59 08/17/17 09:02 20 MEQ Insulin Aspart (novoLOG ASPART) SLIDING SCAL... ACHS SC 08/17/17 07:00 09/16/17 06:59 08/17/17 12:53 9 UNITS Glucagon (Glucagon Inj) 1 mg UD PRN SQ 08/16/17 19:15 09/15/17 19:14 Glucose (Glucose 40% Gel) 15-30 GRAMS 15 GRAMS... UD PRN PO 08/16/17 19:15 09/15/17 19:14 Glucose (Glucose Chew Tab) 4-8 Tablets 4 Tabl... UD PRN PO 08/16/17 19:15 09/15/17 19:14 Insulin Glargine (Lantus Solostar Pen) 30 units BID SC 08/17/17 09:00 09/16/17 08:59 08/17/17 09:14 30 UNITS Atenolol (Tenormin Tab) 50 mg BID PO 08/17/17 09:00 09/16/17 08:59 08/17/17 09:02 50 MG Metoprolol Tartrate (Lopressor Iv) 5 mg Q4 PRN IV 08/17/17 00:00 09/16/17 00:00 Ceftriaxone Sodium 1000 mg/ Dextrose 60 ml @ 100 mls/hr DAILY@2300 IV 08/16/17 23:00 08/26/17 22:59 08/16/17 23:57 100 MLS/HR Clindamycin Phosphate 900 mg/ Dextrose 106 ml @ 100 mls/hr Q8H IV 08/17/17 00:00 08/27/17 00:00 08/17/17 15:37 100 MLS/HR Insulin Glargine (Lantus Solostar Pen) 30 units TODAY@2300 SC 08/17/17 23:00 08/17/17 23:01 Miscellaneous (Iv Fluids Completed) 1 ea PRN PRN N/A 08/16/17 23:30 08/16/18 23:29 Objective Vital Signs Date Time Temp Pulse Resp B/P (MAP) Pulse Ox O2 Delivery O2 Flow Rate FiO2 08/17/17 16:31 92 Room Air 08/17/17 16:02 36.7 66 16 192/74 (113) 91 Room Air 08/17/17 12:10 92 Room Air 08/17/17 11:20 36.9 69 18 172/73 (106) 94 08/17/17 11:12 36.6 68 20 167/74 (105) 92 Room Air 08/17/17 08:01 92 Room Air 08/17/17 07:50 36.9 72 20 162/54 (90) 90 08/17/17 06:28 156/65 (95) 08/17/17 04:00 91 Room Air 2.0 08/17/17 03:43 36.9 73 23 165/83 (110) 91 Room Air 08/17/17 02:36 172/66 (101) 08/16/17 22:40 36.9 77 20 156/70 92 Room Air 08/16/17 22:01 183/101 08/16/17 21:42 73 19 08/16/17 21:12 74 19 08/16/17 21:05 71 08/16/17 20:51 167/54 08/16/17 20:42 69 18 94 Nasal Cannula 2.0 08/16/17 20:37 178/67 08/16/17 20:30 71 20 187/89 93 Nasal Cannula 2.0 08/16/17 20:16 201/82 08/16/17 20:11 227/91 08/16/17 20:07 229/95 08/16/17 20:01 225/101 08/16/17 20:00 74 18 97 08/16/17 19:56 233/83 08/16/17 19:51 212/75 08/16/17 19:47 206/77 08/16/17 19:41 213/147 08/16/17 19:30 70 19 95 08/16/17 19:23 216/73 08/16/17 19:00 57 22 97 08/16/17 18:39 75 20 195/73 97 Nasal Cannula 2.0 08/16/17 18:17 97 Nasal Cannula 2.0 08/16/17 18:16 89 Room Air 08/16/17 17:49 73 18 192/92 95 Room Air Physical Exam General Appearance: WD/WN, no apparent distress Neck: supple, no JVD, no carotid bruits, trachea midline Respiratory/Chest: lungs clear, no respiratory distress, no accessory muscle use Cardiovascular: regular rate, rhythm, + systolic murmur (2/6 at RUSB) Abdomen: normal bowel sounds, soft, + tenderness (RLQ tenderness) Extremities: non-tender, no pedal edema, no calf tenderness Laboratory Results Results Past 24 Hours Test 08/17/17 00:08 08/17/17 05:39 08/17/17 07:00 08/17/17 11:14 Range/Units Bedside Glucose 218 275 331 70-90 mg/dl White Blood Count 12.23 4.8-10.8 K/uL Red Blood Count 4.19 4.2-5.4 M/uL Hemoglobin 10.5 12.0-16.0 g/dL Hematocrit 34.0 37-47 % Mean Corpuscular Volume 81.1 80-100 fL Mean Corpuscular Hemoglobin 25.1 25-34 pg Mean Corpuscular Hemoglobin Concent 30.9 32-36 g/dl RDW Standard Deviation 48.1 36.4-46.3 fL RDW Coefficient of Variation 16.2 11.5-14.5 % Platelet Count 286 130-400 K/uL Mean Platelet Volume 10.6 7.4-10.4 fL Nucleated RBC Absolute Count (auto) 0.02 0-0 K/uL Nucleated Red Blood Cells % 0.2 % Sodium Level 134 136-145 mmol/L Potassium Level 3.7 3.5-5.1 mmol/L Chloride Level 100 98-107 mmol/L Carbon Dioxide Level 29 21-32 mmol/L Anion Gap 5.0 3-11 mmol/L Blood Urea Nitrogen 11 7-18 mg/dl Creatinine 0.77 0.60-1.20 mg/dl Est Creatinine Clear Calc Drug Dose 86.8 ml/min Estimated GFR () 90.0 Estimated GFR (Non- 77.7 BUN/Creatinine Ratio 14.5 10-20 Random Glucose 279 70-99 mg/dl Calcium Level 8.6 8.5-10.1 mg/dl Test 08/17/17 16:40 Range/Units Bedside Glucose 311 70-90 mg/dl Microbiology Results 08/16/17 Shiga Toxin Test - Preliminary, Resulted No E. Coli shiga toxin 1 or shiga tox... 08/16/17 Stool Culture - Preliminary, Resulted NO SALMONELLA ISOLATED TO DATE,... 08/16/17 C.difficile Toxin B Gene (PCR) - Final, Complete No C. difficile toxin B gene detected Assessment and Plan 71 year old female with PMHx of diabetes type 2, GERD, diverticulosis, HTN, HLD , and PMR admitted with right sided abdominal pain, severe HTN and uncontrolled DM. Right sided abdominal pain possible secondary to diverticulitis - patient feels similar to previous episodes of diverticulitis, and steroid use can possibly mask CT findings - Abx: Ceftriaxone and clindamycin (given numerous allergies) - C.diff negative, stool cultures negative - Advance to low residual diet HTN urgency - Added amlodipine 5mg tonight and daily, given extra dose of furosemide today, on max dose of losartan - Continue losartan, furosemide, atenolol increased to 50mg BID - IV metoprolol 5mg PRN SBP >160 - IV hydralazine 10mg PRN SBP >180 Uncontrolled type II DM - last HbA1c 08/10/17 is 10.1 - Hold 70/30 of Novolin-R and metformin - patient amenable to try new regimen - Ordered Lantus 30u BID + ISS ----> Increased to 40units bid and tighten ISS - Accu-checks ac/hs - Diabetic education Shingles - Continue gabapentin 300mg TID - Ordered lidocaine patch for the day, and voltaren gel HS PMR - Continue methylprednisolone 2mg daily CAD - Continue aspirin GERD - Continue pantoprazole Gout - Continue allpurinol VTE ppx - Enoxaparin SC FULL CODE Continued [facility] stay due to: multiple IV medications needed Discharge planning: uncertain History Resident Physician Supervision Note: I was present with Dr. Johnson during the history and exam. I discussed the case with the resident and agree with the findings and plan as documented in the note. Any exceptions or clarifications are listed here. Abdominal pain of the RLQ has been stable with a single episode of exacerbation s/p full diet this AM (toast and eggs) which had resolved at time of evaluation. Had one episode of loose stool this AM (brown, soft). + appetite. General Appearance: WD/WN, no apparent distress Respiratory: chest non-tender, lungs clear, normal breath sounds, no respiratory distress Cardiovascular: normal peripheral pulses, regular rate, rhythm, no edema, no murmur Gastrointestinal: normal bowel sounds, non tender, soft, tenderness (RLQ, mildly diffuse) Skin Characteristics: normal color, warm/dry Assessment/Plan 71 y/o female h/o HTN, IDDM, PMR, h/o TIA presents c/o abd pain in the setting of recurrent diverticulitis RLQ pain in the setting of recurrent diverticulitis - afebrile, on ceftriaxone and clinda - reduce diet to clears and monitor HTN - on atenolol, losartan w/ PRN hydralazine and metoprolol - if BP not improving today, would consider addition of CCB and monitor for tm IDDM - monitor sliding scale use and adjust lantus accordingly for use for PM dose Shingles - continue present regimen PMR - continue steroid therapy CAD - continue atenolol, ASA GERD - on PPI therapy Gout - allopurinol DVT PPX - lovenox
[2017-08-17] MEDS: ALLOPURINOL 100 MG TAB PO SCH (09:00)
[2017-08-17] MEDS: LIDODERM (LIDOCAINE) PATCH 5% TD SCH (09:00)
[2017-08-17] MEDS ORDERED: INSULIN GLARGINE SOLOSTAR 100 UNITS/ML 3 ML PEN SC SCH ×3 (09:00→23:00)
[2017-08-17] MEDS: ASPIRIN 81 MG ECTAB PO SCH (09:01)
[2017-08-17] MEDS: LOSARTAN POTASSIUM 50 MG TAB PO SCH (09:01)
[2017-08-17] MEDS: MAGNESIUM OXIDE 400 MG TAB PO SCH ×2 (09:01→20:23)
[2017-08-17] MEDS: PANTOprazole SOD 40 MG TAB PO SCH ×2 (09:01→20:23)
[2017-08-17] MEDS: GABAPENTIN 300 MG CAP PO SCH ×3 (09:01→20:22)
[2017-08-17] MEDS: METHYLPREDNISOLONE 4 MG TAB PO SCH (09:01)
[2017-08-17] MEDS: CLINDAMYCIN IV 900 MG in DEXTROSE 5% 100ML 100 ML IV SCH ×2 (09:01→15:37)
[2017-08-17] MEDS: POTASSIUM CITRATE 10 MEQ TAB PO SCH ×2 (09:02→20:23)
[2017-08-17] MEDS: INSULIN ASPART 100 UNITS/ML 3 ML PEN SC SCH ×4 (09:12→20:27)
[2017-08-17] MEDS: HydrALAZINE HCL 20 MG/ML VIAL IV. PRN (15:37)
[2017-08-17] MEDS ORDERED: FUROSEMIDE 40 MG TAB PO ONE (17:30)
[2017-08-17] MEDS ORDERED: AMLODIPINE BESYLATE 5 MG TAB PO ONE (17:30)
[2017-08-17] MEDS ORDERED: INSULIN HUMAN REGULAR PER UNIT 8 UNITS in SYRINGE 7.92 ML IV SCH (17:45)
[2017-08-17] MEDS: ENOXAPARIN 40 MG/0.4 ML SYR SC SCH (20:23)
[2017-08-17] MEDS: INSULIN GLARGINE SOLOSTAR 100 UNITS/ML 3 ML PEN SC SCH (20:27)
[2017-08-17] MEDS: DICLOFENAC SOD 1% GEL 100 GM TUBE EXT SCH (20:28)
--- NOTE | 2017-08-17 21:01 | Medical Student: [facility] ---
Med Student Progress Note Date of Service Aug 17, 2017. Subjective Pt evaluation today including: conversation w/ patient, physical exam Pain: RLQ PO Intake: Adequate Voiding: no voiding problems Ms. Wilde is a 71-year-old female with a history of Type 2 DM, GERD, diverticulosis, HLD, HTN, PMR, and Shingles who is admitted for diverticulitis. She reports feeling "80% better today." Periodic pain in RLQ is still present lasting 2 minutes at a time with the same intensity but is happening less frequently. She shares she is worried about her blood pressure because she can' t tell when it is high. She denies fevers, chills, change in baseline headaches , visual changes, or dizziness. She also denies CP, SOB, palpitations, and calf pain. Review of Systems Notes: see hpi Objective Vital Signs Date Time Temp Pulse Resp B/P (MAP) Pulse Ox O2 Delivery O2 Flow Rate FiO2 08/17/17 19:49 36.7 71 20 178/64 (102) 92 Room Air 08/17/17 16:31 92 Room Air 08/17/17 16:02 36.7 66 16 192/74 (113) 91 Room Air 08/17/17 12:10 92 Room Air 08/17/17 11:20 36.9 69 18 172/73 (106) 94 08/17/17 11:12 36.6 68 20 167/74 (105) 92 Room Air 08/17/17 08:01 92 Room Air 08/17/17 07:50 36.9 72 20 162/54 (90) 90 08/17/17 06:28 156/65 (95) 08/17/17 04:00 91 Room Air 2.0 08/17/17 03:43 36.9 73 23 165/83 (110) 91 Room Air 08/17/17 02:36 172/66 (101) 08/16/17 22:40 36.9 77 20 156/70 92 Room Air 08/16/17 22:01 183/101 08/16/17 21:42 73 19 08/16/17 21:12 74 19 08/16/17 21:05 71 08/16/17 20:51 167/54 Physical Exam General Appearance: WD/WN, no apparent distress (sitting in bedside chair) ENT: TMs normal Respiratory/Chest: lungs clear, normal breath sounds Cardiovascular: regular rate, rhythm, no edema, no gallop Abdomen: normal bowel sounds, non tender, soft Extremities: normal inspection, no pedal edema, no calf tenderness Laboratory Results Last 24 Hours Test 08/17/17 00:08 08/17/17 05:39 08/17/17 07:00 08/17/17 11:14 Bedside Glucose 218 mg/dl 275 mg/dl 331 mg/dl White Blood Count 12.23 K/uL Red Blood Count 4.19 M/uL Hemoglobin 10.5 g/dL Hematocrit 34.0 % Mean Corpuscular Volume 81.1 fL Mean Corpuscular Hemoglobin 25.1 pg Mean Corpuscular Hemoglobin Concent 30.9 g/dl RDW Standard Deviation 48.1 fL RDW Coefficient of Variation 16.2 % Platelet Count 286 K/uL Mean Platelet Volume 10.6 fL Nucleated RBC Absolute Count (auto) 0.02 K/uL Nucleated Red Blood Cells % 0.2 % Sodium Level 134 mmol/L Potassium Level 3.7 mmol/L Chloride Level 100 mmol/L Carbon Dioxide Level 29 mmol/L Anion Gap 5.0 mmol/L Blood Urea Nitrogen 11 mg/dl Creatinine 0.77 mg/dl Est Creatinine Clear Calc Drug Dose 86.8 ml/min Estimated GFR () 90.0 Estimated GFR (Non- 77.7 BUN/Creatinine Ratio 14.5 Random Glucose 279 mg/dl Calcium Level 8.6 mg/dl Test 08/17/17 16:40 08/17/17 20:06 Bedside Glucose 311 mg/dl 313 mg/dl Assessment and Plan Assessment and Plan: Ms. Wilde is a 71-year-old female with a history of Type 2 DM, GERD, diverticulosis, HLD, HTN, PMR, and Shingles who is admitted for diverticulitis. DIVERTICULITIS - Abdominal CT scan on admission does not show obstruction, renal calculi, or signs of diverticulitis. However, in setting of chronic methlyprednisolone, inflammation may be masked. - C. diff negative. No Salmonella or Shigella detected. - Pt remains afebrile. White count stable ~12.2. - With significant allergy history, first choice options for diverticulitis are not an option. Pt will be given clindamycin and ceftriaxone for Gram negative and anaerobic coverage. - Consider probiotic supplementation to prevent C. diff in patient with allergies for treatment of C. diff and clindamycin use. HYPERTENSION / CAD - Pt continues to be hypertensive with max systolic in the 190s and max diastolic in the 80s. - Continue losartan, furosemide, and atenolol. Will re-evaluate in AM. - Give metoprolol is SBP > 160. Give hydralazine if SBP > 180. - Continue ASA TYPE 2 DIABETES MELLITUS - Inadequately controlled since admission - BG running in 200s and 300s. - Pt currently on 30 units Lantus BID + ISS. - Readjust requirements tomorrow based on ISS needs. PAIN RELATED TO SHINGLES - Stable - Continue Gabapentin, lidocaine patch, diclofenac gel. PMR - Stable - Continue methylprednisolone. GERD - Denies reflux. - Continue pantoprazole. DVT PPX - Pt denies calf pain. - Continue enoxaparin and encourage ambulation as tolerated. Continued [facility] stay due to: multiple IV medications needed Discharge planning: uncertain
[2017-08-17] MEDS: CEFTRIAXONE SOD INJ 1,000 MG in DEXTROSE 5% 50ML 50 ML IV SCH (23:52)
[2017-08-18] VITALS (11 sets, daily range): BP systolic 140–172; BP diastolic 48–69; PULSE 68–75; TEMP 36.6–37; O2SAT 92–97; BMI 40.7
[2017-08-18] MEDS: INSULIN ASPART 100 UNITS/ML 3 ML PEN SC SCH ×6 (00:07→21:43)
[2017-08-18] MEDS: HydrALAZINE HCL 20 MG/ML VIAL IV. PRN (00:14)
[2017-08-18] MEDS: CLINDAMYCIN IV 900 MG in DEXTROSE 5% 100ML 100 ML IV SCH ×3 (00:15→15:28)
[2017-08-18] MEDS: ACETAMINOPHEN 325 MG TAB PO PRN (05:44)
[2017-08-18 07:02] LABS: HEMATOCRIT 35.2 % (37-47); HEMOGLOBIN 11.1 g/dL (12.0-16.0); MEAN CELL VOLUME 80.2 fL (80-100); MEAN CORPUSCULAR HEMOGLOBIN 25.3 pg (25-34); MEAN CORPUSCULAR HGB CONC 31.5 g/dl (32-36); MEAN PLATELET VOLUME 10.6 fL (7.4-10.4); NUCLEATED RED BLOOD CELL ABS 0.03 K/uL (0-0); PLATELET COUNT 305 K/uL (130-400); RED CELL DISTRIBUTION WIDTH CV 16.4 % (11.5-14.5); RED CELL DISTRIBUTION WIDTH SD 47.8 fL (36.4-46.3); WHITE BLOOD COUNT 11.95 K/uL (4.8-10.8)
[2017-08-18] MEDS ORDERED: INSULIN HUMAN REGULAR PER UNIT 10 UNITS in SYRINGE 9.9 ML IV ONE (07:30)
[2017-08-18 07:38] LABS: CALCIUM 8.7 mg/dl (8.5-10.1); CREATININE 1.08 mg/dl (0.60-1.20); POTASSIUM 3.9 mmol/L (3.5-5.1)
[2017-08-18] MEDS: LOSARTAN POTASSIUM 50 MG TAB PO SCH (08:49)
[2017-08-18] MEDS: MAGNESIUM OXIDE 400 MG TAB PO SCH ×2 (08:49→21:35)
[2017-08-18] MEDS: ASPIRIN 81 MG ECTAB PO SCH (08:49)
[2017-08-18] MEDS: METHYLPREDNISOLONE 4 MG TAB PO SCH (08:50)
[2017-08-18] MEDS: GABAPENTIN 300 MG CAP PO SCH ×3 (08:50→21:36)
[2017-08-18] MEDS: PANTOprazole SOD 40 MG TAB PO SCH ×2 (08:51→21:36)
[2017-08-18] MEDS: POTASSIUM CITRATE 10 MEQ TAB PO SCH ×2 (08:52→21:37)
[2017-08-18] MEDS: ALLOPURINOL 100 MG TAB PO SCH (08:54)
[2017-08-18] MEDS: INSULIN GLARGINE SOLOSTAR 100 UNITS/ML 3 ML PEN SC SCH ×2 (08:55→21:42)
[2017-08-18] MEDS: LIDODERM (LIDOCAINE) PATCH 5% TD SCH ×2 (09:00→10:58)
[2017-08-18] MEDS ORDERED: AMLODIPINE BESYLATE 5 MG TAB PO SCH (09:00)
--- NOTE | 2017-08-18 11:28 | Family Medicine Progress Note ---
Progress Note Date of Service Aug 18, 2017. Subjective Pt evaluation today including: conversation w/ patient, physical exam, chart review, lab review, conversation w/ senior professional services consultant, review of inpatient medication list Pain: moderate lower abdomen PO Intake: good Voiding: no voiding problems Patient with continued episodes of pain overnight 3-4 episodes rates as 6-81/0 with radiation to back. No episodes since breakfast this morning Also complains of R ankle pain with ambulation Able to tolerate diet Constitutional: No fever, No chills Respiratory: No cough, No sputum, No shortness of breath Cardiovascular: No chest pain, No edema, No palpitations Abdomen: + pain, No nausea, No vomiting, No diarrhea, No constipation Musculoskeletal: + joint pain Female : No dysuria, No urinary frequency, No hematuria, No abnormal vaginal bleeding, No vaginal discharge Heme: No abnormal bleeding/bruising Skin: No rash, No itch Medications Current Inpatient Medications Medications (Trade) Dose Ordered Sig/Noemi Route Start Time Stop Time Status Last Admin Dose Admin Enoxaparin Sodium (Lovenox Inj) 40 mg Q24H SC 08/16/17 22:00 09/15/17 21:59 08/17/17 20:23 40 MG Acetaminophen (Tylenol Tab) 650 mg Q4H PRN PO 08/16/17 22:00 09/15/17 21:59 08/18/17 05:44 650 MG Al Hydrox/Mg Hydrox/Simethicone (Maalox Max Susp) 15 ml Q4H PRN PO 08/16/17 22:00 09/15/17 21:59 Magnesium Hydroxide (Milk Of Magnesia Susp) 30 ml Q12H PRN PO 08/16/17 22:00 09/15/17 21:59 Ondansetron HCl (Zofran Inj) 4 mg Q6H PRN IV 08/16/17 22:00 09/15/17 21:59 Nitroglycerin (Nitrostat Tab) 0.4 mg UD PRN SL 08/16/17 22:00 09/15/17 21:59 Polyethylene (Miralax Powder Packet) 17 gm DAILY PRN PO 08/16/17 22:00 09/15/17 21:59 Hydralazine HCl (HydrALAZINE INJ) 10 mg Q4 PRN IV. 08/16/17 22:00 2/27/18 21:59 08/18/17 00:14 10 MG Diclofenac Sodium (Voltaren 1% Top Gel) 1 appln HS EXT 08/17/17 21:00 09/16/17 20:59 Lidocaine (Lidoderm Patch 5%) 1 patch QAM TD 08/17/17 09:00 09/16/17 08:59 08/18/17 10:58 1 PATCH Miscellaneous (Remove Lidoderm Patch) 1 ea DAILY@21 N/A 08/17/17 21:00 09/16/17 20:59 Allopurinol (Zyloprim Tab) 100 mg DAILY PO 08/17/17 09:00 09/16/17 08:59 Aspirin (Ecotrin Tab) 81 mg DAILY PO 08/17/17 09:00 09/16/17 08:59 08/18/17 08:49 81 MG Furosemide (Lasix Tab) 20 mg DAILY PRN PO 08/16/17 22:00 09/15/17 21:59 Gabapentin (Neurontin Cap) 300 mg TID PO 08/17/17 09:00 09/16/17 08:59 08/18/17 08:50 300 MG Losartan Potassium (coZAAR TAB) 100 mg DAILY PO 08/17/17 09:00 09/16/17 08:59 08/18/17 08:49 100 MG Magnesium Oxide (Mag-Ox Tab) 400 mg BID PO 08/17/17 09:00 09/16/17 08:59 08/18/17 08:49 400 MG Methylprednisolone (Medrol Tab) 2 mg DAILY PO 08/17/17 09:00 09/16/17 08:59 08/18/17 08:50 2 MG Pantoprazole Sodium (Protonix Tab) 40 mg BID PO 08/17/17 09:00 09/16/17 08:59 08/18/17 08:51 40 MG Potassium Citrate (Urocit-K Tab) 20 meq BID PO 08/17/17 09:00 09/16/17 08:59 08/18/17 08:52 20 MEQ Glucagon (Glucagon Inj) 1 mg UD PRN SQ 08/16/17 19:15 09/15/17 19:14 Glucose (Glucose 40% Gel) 15-30 GRAMS 15 GRAMS... UD PRN PO 08/16/17 19:15 09/15/17 19:14 Glucose (Glucose Chew Tab) 4-8 Tablets 4 Tabl... UD PRN PO 08/16/17 19:15 09/15/17 19:14 Atenolol (Tenormin Tab) 50 mg BID PO 08/17/17 09:00 09/16/17 08:59 08/18/17 08:52 50 MG Metoprolol Tartrate (Lopressor Iv) 5 mg Q4 PRN IV 08/17/17 00:00 09/16/17 00:00 Ceftriaxone Sodium 1000 mg/ Dextrose 60 ml @ 100 mls/hr DAILY@2300 IV 08/16/17 23:00 08/26/17 22:59 08/17/17 23:52 100 MLS/HR Clindamycin Phosphate 900 mg/ Dextrose 106 ml @ 100 mls/hr Q8H IV 08/17/17 00:00 08/27/17 00:00 08/18/17 08:48 100 MLS/HR Miscellaneous (Iv Fluids Completed) 1 ea PRN PRN N/A 08/16/17 23:30 08/16/18 23:29 Amlodipine Besylate (Norvasc Tab) 5 mg QAM PO 08/18/17 09:00 09/17/17 08:59 08/18/17 08:51 5 MG Insulin Glargine (Lantus Solostar Pen) 40 units BID SC 08/17/17 21:00 09/16/17 08:59 08/18/17 08:55 40 UNITS Insulin Aspart (novoLOG ASPART) SLIDING SCALE G... ACHS SC 08/17/17 17:28 09/16/17 06:59 08/18/17 08:47 13 UNITS Objective Vital Signs Date Time Temp Pulse Resp B/P (MAP) Pulse Ox O2 Delivery O2 Flow Rate FiO2 08/18/17 09:44 Room Air 08/18/17 08:48 92 Room Air 08/18/17 07:48 36.6 72 20 148/58 (88) 97 Room Air 08/18/17 04:00 Room Air 08/18/17 03:59 36.6 69 18 147/60 (89) 94 Room Air 08/18/17 01:52 145/59 (87) 08/18/17 00:00 Room Air 1/29/18 22:58 36.6 71 18 184/57 (99) 92 Room Air 08/17/17 20:00 Room Air 08/17/17 19:49 36.7 71 20 178/64 (102) 92 Room Air 08/17/17 16:31 92 Room Air 08/17/17 16:02 36.7 66 16 192/74 (113) 91 Room Air 08/17/17 12:10 92 Room Air Physical Exam General Appearance: WD/WN, no apparent distress Neck: supple, no JVD, trachea midline Respiratory/Chest: lungs clear, no respiratory distress, no accessory muscle use Cardiovascular: regular rate, rhythm, no edema, no murmur Abdomen: normal bowel sounds, soft, + tenderness (RLQ tenderness, no rebound or guarding) Extremities: non-tender, no pedal edema, no calf tenderness Neurologic/Psychiatric: no motor/sensory deficits, normal mood/affect, oriented x 3 Laboratory Results Results Past 24 Hours Test 08/17/17 16:40 08/17/17 20:06 08/18/17 00:03 08/18/17 04:07 Range/Units Bedside Glucose 311 313 305 321 70-90 mg/dl Test 08/18/17 06:43 08/18/17 06:52 Range/Units Bedside Glucose 299 70-90 mg/dl White Blood Count 11.95 4.8-10.8 K/uL Red Blood Count 4.39 4.2-5.4 M/uL Hemoglobin 11.1 12.0-16.0 g/dL Hematocrit 35.2 37-47 % Mean Corpuscular Volume 80.2 80-100 fL Mean Corpuscular Hemoglobin 25.3 25-34 pg Mean Corpuscular Hemoglobin Concent 31.5 32-36 g/dl RDW Standard Deviation 47.8 36.4-46.3 fL RDW Coefficient of Variation 16.4 11.5-14.5 % Platelet Count 305 130-400 K/uL Mean Platelet Volume 10.6 7.4-10.4 fL Nucleated RBC Absolute Count (auto) 0.03 0-0 K/uL Nucleated Red Blood Cells % 0.3 % Sodium Level 133 136-145 mmol/L Potassium Level 3.9 3.5-5.1 mmol/L Chloride Level 97 98-107 mmol/L Carbon Dioxide Level 30 21-32 mmol/L Anion Gap 6.0 3-11 mmol/L Blood Urea Nitrogen 14 7-18 mg/dl Creatinine 1.08 0.60-1.20 mg/dl Est Creatinine Clear Calc Drug Dose 61.4 ml/min Estimated GFR () 59.8 Estimated GFR (Non- 51.6 BUN/Creatinine Ratio 12.9 10-20 Random Glucose 291 70-99 mg/dl Calcium Level 8.7 8.5-10.1 mg/dl Assessment and Plan 71 year old female with PMHx of diabetes type 2, GERD, diverticulosis, HTN, HLD , and PMR admitted with right sided abdominal pain, severe HTN and uncontrolled DM. Right sided abdominal pain possible secondary to diverticulitis - patient feels similar to previous episodes of diverticulitis, and steroid use can possibly mask CT findings - Abx: Ceftriaxone and clindamycin (given numerous allergies) - C.diff negative, stool cultures negative - Continue low residual diet - Continues to have lower abdominal pain, reassurance to patient that symptoms are improving and normal with this diagnosis HTN urgency - Added amlodipine 5mg yesterday and daily, given extra dose of furosemide yesterday, on max dose of losartan - Continue losartan, furosemide, atenolol - IV metoprolol 5mg PRN SBP >160 - IV hydralazine 10mg PRN SBP >180 Uncontrolled type II DM - last HbA1c 08/10/17 is 10.1 - Hold 70/30 of Novolin-R and metformin - patient amenable to try new regimen - Ordered Lantus 30u BID + ISS ----> Increased to 40units bid and tighten ISS--- ->increased to 50 units bid and given 10 units of regular insulin this morning - Accu-checks q4 hours - Diabetic education Shingles - Continue gabapentin 300mg TID - Ordered lidocaine patch for the day, and voltaren gel HS PMR - Continue methylprednisolone 2mg daily CAD - Continue aspirin GERD - Continue pantoprazole Gout - Continue allpurinol VTE ppx - Enoxaparin SC FULL CODE Continued [facility] stay due to: multiple IV medications needed Discharge planning: home History Resident Physician Supervision Note: I was present with Dr. Johnson during the history and exam. I discussed the case with the resident and agree with the findings and plan as documented in the note. Any exceptions or clarifications are listed here. Pt reports decreasing frequency of episodic aching RLQ abdominal pain this morning with no pain at baseline. Reports no nausea/vomiting, constipation, [facility], lightheadedness. General Appearance: no apparent distress, obese Respiratory: chest non-tender, lungs clear, normal breath sounds, no respiratory distress Cardiovascular: normal peripheral pulses, regular rate, rhythm, no murmur Gastrointestinal: normal bowel sounds, soft, no organomegaly, tenderness ( improved RLQ TTP) Assessment/Plan 71 y/o female h/o HTN, IDDM, PMR, h/o TIA presents c/o abd pain in the setting of recurrent diverticulitis RLQ pain in the setting of recurrent diverticulitis - afebrile, on ceftriaxone and clinda - advance diet, monitor. T/C repeat imaging tomorrow if sx not resolving in frq/severity HTN - on atenolol, losartan, atenolol w/ furosemide IDDM - continue ISS, increase lantus to 60U BID and monitor Shingles - continue present regimen PMR - continue steroid therapy CAD - continue atenolol, ASA GERD - on PPI therapy Gout - allopurinol DVT PPX - lovenox
[2017-08-18] MEDS ORDERED: INSULIN GLARGINE SOLOSTAR 100 UNITS/ML 3 ML PEN SC SCH (21:00)
[2017-08-18] MEDS: DICLOFENAC SOD 1% GEL 100 GM TUBE EXT SCH (21:34)
[2017-08-18] MEDS: ENOXAPARIN 40 MG/0.4 ML SYR SC SCH (21:44)
[2017-08-18] MEDS: CEFTRIAXONE SOD INJ 1,000 MG in DEXTROSE 5% 50ML 50 ML IV SCH (23:24)
[2017-08-19] VITALS (9 sets, daily range): BP systolic 128–164; BP diastolic 51–72; PULSE 62–69; TEMP 36.4–36.9; O2SAT 91–94; BMI 41.0
[2017-08-19] MEDS: CLINDAMYCIN IV 900 MG in DEXTROSE 5% 100ML 100 ML IV SCH ×3 (00:18→16:23)
[2017-08-19] MEDS: ACETAMINOPHEN 325 MG TAB PO PRN ×3 (04:04→21:36)
[2017-08-19 06:08] LABS: HEMATOCRIT 34.1 % (37-47); HEMOGLOBIN 10.6 g/dL (12.0-16.0); MEAN CELL VOLUME 80.2 fL (80-100); MEAN CORPUSCULAR HEMOGLOBIN 24.9 pg (25-34); MEAN CORPUSCULAR HGB CONC 31.1 g/dl (32-36); MEAN PLATELET VOLUME 10.6 fL (7.4-10.4); PLATELET COUNT 315 K/uL (130-400); RED CELL DISTRIBUTION WIDTH CV 16.7 % (11.5-14.5); WHITE BLOOD COUNT 11.52 K/uL (4.8-10.8)
[2017-08-19 06:56] LABS: CALCIUM 9.1 mg/dl (8.5-10.1); CREATININE 1.02 mg/dl (0.60-1.20); POTASSIUM 4.1 mmol/L (3.5-5.1)
[2017-08-19] MEDS: INSULIN ASPART 100 UNITS/ML 3 ML PEN SC SCH ×5 (07:00→21:09)
[2017-08-19] MEDS ORDERED: INSULIN IV INFUSION PROTOCOL STA (07:10)
[2017-08-19] MEDS ORDERED: INSULIN PROTOCOL GOAL RANGE ONE (07:15)
[2017-08-19] MEDS ORDERED: SEVERE STRESS LEVEL ONE (07:15)
[2017-08-19] MEDS ORDERED: INSULIN HUMAN REGULAR IV BOLUS 4.5 UNIT in SYRINGE 0 ML IV SCH (07:45)
[2017-08-19] MEDS: INSULIN REGULAR 250 UNITS in SODIUM CHLORIDE 0.9% 250ML 250 ML IV SCH ×9 (07:59→21:57)
--- NOTE | 2017-08-19 08:27 | Clinical Documentation Query ---
SHAINA Lam : CLINICAL DOCUMENTATION QUERY Patient is a 71 year old female admitted for right sided abdominal pain secondary to diverticulitis. BMI noted to be 41.0 kg/m*m. In order to capture this clinical information, an associated clinical diagnosis must be explicitly documented by the provider. As appropriate, consider documentation as suggested below. In your clinical opinion is this patient: ( ) Overweight/obese, BMI 41.0 kg/m*m ( ) Not Agree ( ) Other explanation of clinical findings (Please Explain) ( ) Unable to determine (Please Define) ( ) Need to Discuss The medical record reflects the following clinical findings, treatment, and risk factors. Clinical Indicators: As above Treatment: Diabetes type 2 diet, carbohydrate counting Risk Factors: Caloric intake > caloric expenditure Please clarify and document your clinical opinion in the progress notes and discharge summary. Terms such as "probable", "suspected", "likely", "questionable", "possible", or "still to be ruled out" are acceptable. IF IN AGREEMENT, YOU MUST DOCUMENT ABOVE DIAGNOSTIC STATEMENT IN DAILY PROGRESS NOTES AND DISCHARGE SUMMARY. This document is not part of the patient's record. Thank You, Eusebio Diallo, RN [phone]
[2017-08-19] MEDS: INSULIN GLARGINE SOLOSTAR 100 UNITS/ML 3 ML PEN SC SCH ×2 (09:06→21:10)
[2017-08-19] MEDS: ASPIRIN 81 MG ECTAB PO SCH (09:24)
[2017-08-19] MEDS: LOSARTAN POTASSIUM 50 MG TAB PO SCH (09:24)
[2017-08-19] MEDS: MAGNESIUM OXIDE 400 MG TAB PO SCH ×2 (09:25→21:04)
[2017-08-19] MEDS: METHYLPREDNISOLONE 4 MG TAB PO SCH (09:28)
[2017-08-19] MEDS: GABAPENTIN 300 MG CAP PO SCH ×3 (09:28→21:05)
[2017-08-19] MEDS: AMLODIPINE BESYLATE 5 MG TAB PO SCH (09:29)
[2017-08-19] MEDS: PANTOprazole SOD 40 MG TAB PO SCH ×2 (09:29→21:05)
[2017-08-19] MEDS ORDERED: FUROSEMIDE INJ 20 MG in SYRINGE 0 ML IV ONE (09:30)
[2017-08-19] MEDS: POTASSIUM CITRATE 10 MEQ TAB PO SCH ×2 (09:32→21:06)
[2017-08-19] MEDS: LIDODERM (LIDOCAINE) PATCH 5% TD SCH (09:32)
[2017-08-19] MEDS: ALLOPURINOL 100 MG TAB PO SCH (09:32)
--- NOTE | 2017-08-19 16:38 | Family Medicine Progress Note ---
Progress Note Date of Service Aug 19, 2017. Subjective Pt evaluation today including: conversation w/ patient, physical exam, chart review, lab review, conversation w/ surgery consultant, review of inpatient medication list Pain: none PO Intake: good Voiding: no voiding problems Patient without any abdominal pain today Tolerating diet well On insulin drip and discussed outpatient insulin management, patient concerned with cost of medication besides 70/30 Constitutional: No fever, No chills Cardiovascular: No chest pain, No orthopnea, No edema Abdomen: No pain, No nausea, No vomiting, No diarrhea Female : No dysuria, No urinary frequency Skin: No rash, No itch Medications Current Inpatient Medications Medications (Trade) Dose Ordered Sig/Noemi Route Start Time Stop Time Status Last Admin Dose Admin Enoxaparin Sodium (Lovenox Inj) 40 mg Q24H SC 08/16/17 22:00 09/15/17 21:59 08/18/17 21:44 40 MG Acetaminophen (Tylenol Tab) 650 mg Q4H PRN PO 08/16/17 22:00 09/15/17 21:59 08/19/17 14:18 650 MG Al Hydrox/Mg Hydrox/Simethicone (Maalox Max Susp) 15 ml Q4H PRN PO 08/16/17 22:00 09/15/17 21:59 Magnesium Hydroxide (Milk Of Magnesia Susp) 30 ml Q12H PRN PO 08/16/17 22:00 09/15/17 21:59 Ondansetron HCl (Zofran Inj) 4 mg Q6H PRN IV 08/16/17 22:00 09/15/17 21:59 Nitroglycerin (Nitrostat Tab) 0.4 mg UD PRN SL 08/16/17 22:00 09/15/17 21:59 Polyethylene (Miralax Powder Packet) 17 gm DAILY PRN PO 08/16/17 22:00 09/15/17 21:59 Hydralazine HCl (HydrALAZINE INJ) 10 mg Q4 PRN IV. 08/16/17 22:00 09/15/17 21:59 08/18/17 00:14 10 MG Diclofenac Sodium (Voltaren 1% Top Gel) 1 appln HS EXT 08/17/17 21:00 09/16/17 20:59 08/18/17 21:34 1 APPLN Lidocaine (Lidoderm Patch 5%) 1 patch QAM TD 08/17/17 09:00 09/16/17 08:59 08/18/17 10:58 1 PATCH Miscellaneous (Remove Lidoderm Patch) 1 ea DAILY@21 N/A 08/17/17 21:00 09/16/17 20:59 08/18/17 21:00 1 EA Allopurinol (Zyloprim Tab) 100 mg DAILY PO 08/17/17 09:00 09/16/17 08:59 Aspirin (Ecotrin Tab) 81 mg DAILY PO 08/17/17 09:00 09/16/17 08:59 08/19/17 09:24 81 MG Furosemide (Lasix Tab) 20 mg DAILY PRN PO 08/16/17 22:00 09/15/17 21:59 08/18/17 16:58 20 MG Gabapentin (Neurontin Cap) 300 mg TID PO 08/17/17 09:00 09/16/17 08:59 08/19/17 12:55 300 MG Losartan Potassium (coZAAR TAB) 100 mg DAILY PO 08/17/17 09:00 09/16/17 08:59 08/19/17 09:24 100 MG Magnesium Oxide (Mag-Ox Tab) 400 mg BID PO 08/17/17 09:00 09/16/17 08:59 08/19/17 09:25 400 MG Methylprednisolone (Medrol Tab) 2 mg DAILY PO 08/17/17 09:00 09/16/17 08:59 08/19/17 09:28 2 MG Pantoprazole Sodium (Protonix Tab) 40 mg BID PO 08/17/17 09:00 09/16/17 08:59 08/19/17 09:29 40 MG Potassium Citrate (Urocit-K Tab) 20 meq BID PO 08/17/17 09:00 09/16/17 08:59 08/19/17 09:32 20 MEQ Glucagon (Glucagon Inj) 1 mg UD PRN SQ 08/16/17 19:15 09/15/17 19:14 Glucose (Glucose 40% Gel) 15-30 GRAMS 15 GRAMS... UD PRN PO 08/16/17 19:15 09/15/17 19:14 Glucose (Glucose Chew Tab) 4-8 Tablets 4 Tabl... UD PRN PO 08/16/17 19:15 09/15/17 19:14 Atenolol (Tenormin Tab) 50 mg BID PO 08/17/17 09:00 09/16/17 08:59 08/19/17 09:31 50 MG Metoprolol Tartrate (Lopressor Iv) 5 mg Q4 PRN IV 08/17/17 00:00 09/16/17 00:00 Ceftriaxone Sodium 1000 mg/ Dextrose 60 ml @ 100 mls/hr DAILY@2300 IV 08/16/17 23:00 08/26/17 22:59 08/18/17 23:24 100 MLS/HR Clindamycin Phosphate 900 mg/ Dextrose 106 ml @ 100 mls/hr Q8H IV 08/17/17 00:00 08/27/17 00:00 08/19/17 16:23 100 MLS/HR Miscellaneous (Iv Fluids Completed) 1 ea PRN PRN N/A 08/16/17 23:30 08/16/18 23:29 Insulin Aspart (novoLOG ASPART) SLIDING SCALE G... ACHS SC 08/17/17 17:28 09/16/17 06:59 Future Hold 08/18/17 21:43 13 UNITS Insulin Glargine (Lantus Solostar Pen) 60 units BID SC 08/18/17 21:00 09/16/17 08:59 08/19/17 09:06 60 UNITS Insulin Aspart (novoLOG ASPART) SLIDING [facility]ALE [facility] 08/19/17 08:00 09/18/17 07:59 08/19/17 12:06 8 UNITS Amlodipine Besylate (Norvasc Tab) 10 mg QAM PO 08/19/17 09:00 09/17/17 08:59 08/19/17 09:29 10 MG Insulin Human Regular 250 units/ Sodium Chloride 252.5 ml @ 0 mls/hr Q24H IV 08/19/17 07:45 09/18/17 07:44 08/19/17 14:09 20.3 MLS/HR Objective Vital Signs Date Time Temp Pulse Resp B/P (MAP) Pulse Ox O2 Delivery O2 Flow Rate FiO2 08/19/17 16:26 36.5 69 25 134/55 (81) 94 Room Air 08/19/17 12:31 92 Room Air 08/19/17 11:17 36.9 64 18 147/59 (88) 93 Room Air 08/19/17 10:41 Room Air 08/19/17 08:13 36.4 65 18 151/53 (85) 92 Room Air 08/19/17 08:01 92 Room Air 08/19/17 04:00 Room Air 08/19/17 03:50 36.7 62 20 164/72 (102) 93 Room Air 08/19/17 00:00 Room Air 08/18/17 23:43 36.7 75 20 140/67 (91) 93 Room Air 08/18/17 20:21 37.0 73 16 151/48 (82) 94 Room Air 08/18/17 20:00 94 Room Air Physical Exam General Appearance: WD/WN, no apparent distress ENT: hearing grossly normal, pharynx normal Neck: supple, no JVD, trachea midline Respiratory/Chest: no respiratory distress, no accessory muscle use, + crackles (RLL crackles) Cardiovascular: regular rate, rhythm, no edema, no murmur Abdomen: normal bowel sounds, soft, + tenderness (mild RLQ tenderness) Extremities: non-tender, no pedal edema, no calf tenderness Neurologic/Psychiatric: alert, normal mood/affect, oriented x 3 Skin: normal color, warm/dry, no rash Laboratory Results Results Past 24 Hours Test 08/18/17 17:16 08/18/17 21:31 08/18/17 23:35 08/19/17 03:59 Range/Units Bedside Glucose 378 349 368 315 70-90 mg/dl Test 08/19/17 05:47 08/19/17 06:44 08/19/17 08:55 08/19/17 10:04 Range/Units White Blood Count 11.52 4.8-10.8 K/uL Red Blood Count 4.25 4.2-5.4 M/uL Hemoglobin 10.6 12.0-16.0 g/dL Hematocrit 34.1 37-47 % Mean Corpuscular Volume 80.2 80-100 fL Mean Corpuscular Hemoglobin 24.9 25-34 pg Mean Corpuscular Hemoglobin Concent 31.1 32-36 g/dl RDW Standard Deviation 48.0 36.4-46.3 fL RDW Coefficient of Variation 16.7 11.5-14.5 % Platelet Count 315 130-400 K/uL Mean Platelet Volume 10.6 7.4-10.4 fL Sodium Level 133 136-145 mmol/L Potassium Level 4.1 3.5-5.1 mmol/L Chloride Level 97 98-107 mmol/L Carbon Dioxide Level 29 21-32 mmol/L Anion Gap 7.0 3-11 mmol/L Blood Urea Nitrogen 24 7-18 mg/dl Creatinine 1.02 0.60-1.20 mg/dl Est Creatinine Clear Calc Drug Dose 65.2 ml/min Estimated GFR () 64.1 Estimated GFR (Non- 55.3 BUN/Creatinine Ratio 23.6 10-20 Random Glucose 320 70-99 mg/dl Calcium Level 9.1 8.5-10.1 mg/dl Beta-Hydroxybutyric Acid 2.86 0.2-2.81 mg/dL Bedside Glucose 325 355 394 70-90 mg/dl Test 08/19/17 10:57 08/19/17 11:58 08/19/17 12:50 08/19/17 14:03 Range/Units Bedside Glucose 335 289 286 319 70-90 mg/dl Test 08/19/17 15:08 08/19/17 16:09 Range/Units Bedside Glucose 294 307 70-90 mg/dl Assessment and Plan 71 year old female with PMHx of diabetes type 2, GERD, diverticulosis, HTN, HLD , and PMR admitted with right sided abdominal pain, severe HTN and uncontrolled DM. Right sided abdominal pain possible secondary to diverticulitis - patient feeling much better today - Abx: Ceftriaxone and clindamycin (given numerous allergies)--> will talk to pharmacy tomorrow to discuss outpatient treatment - C.diff negative, stool cultures negative - Advance to regular diet HTN urgency - Continue losartan, furosemide, atenolol, amlodipine - IV metoprolol 5mg PRN SBP >160 - IV hydralazine 10mg PRN SBP >180 Uncontrolled type II DM - last HbA1c 08/10/17 is 10.1 - Hold 70/30 of Novolin-R and metformin - patient amenable to try new regimen - Ordered Lantus 30u BID + ISS ----> Increased to 40units bid and tighten ISS--- ->increased to 50 units bid and given 10 units of regular insulin this morning-- ---> started insulin drip - Accu-checks q4 hours - will talk to case management tomorrow to find out palma of lantus Shingles - Continue gabapentin 300mg TID - Ordered lidocaine patch for the day, and voltaren gel HS PMR - Continue methylprednisolone 2mg daily CAD - Continue aspirin GERD - Continue pantoprazole Gout - Continue allpurinol VTE ppx - Enoxaparin SC FULL CODE Continued [facility] stay due to: multiple IV medications needed Discharge planning: home History Resident Physician Supervision Note: I was present with Dr. Johnson during the history and exam. I discussed the case with the resident and agree with the findings and plan as documented in the note. Any exceptions or clarifications are listed here. Pt reports resolved RLQ pain without recurrence and mild intermittent LLQ pain and suprapubic pain which is chronic and improving. Reports no fever/chills. Tolerating diet well. General Appearance: no apparent distress, obese Respiratory: chest non-tender, lungs clear, normal breath sounds, no respiratory distress Cardiovascular: normal peripheral pulses, regular rate, rhythm, no murmur Gastrointestinal: normal bowel sounds, non tender, soft, no organomegaly Assessment/Plan 71 y/o female h/o HTN, IDDM, PMR, h/o TIA presents c/o abd pain in the setting of recurrent diverticulitis IDDM - transition from insulin drip by protocol - is on 70/30 at home 2/2 cost - case mgmt discussion re: basal bolus and cost v. resume on 70/30 RLQ pain in the setting of recurrent diverticulitis - afebrile, on ceftriaxone and clinda - advance diet, monitor. Transition to PO abx HTN - on atenolol, losartan, atenolol w/ furosemide Shingles - continue present regimen PMR - continue steroid therapy CAD - continue atenolol, ASA GERD - on PPI therapy Gout - allopurinol DVT PPX - lovenox
[2017-08-19] MEDS: DICLOFENAC SOD 1% GEL 100 GM TUBE EXT SCH (21:01)
[2017-08-19] MEDS: ENOXAPARIN 40 MG/0.4 ML SYR SC SCH (21:37)
[2017-08-19] MEDS: CEFTRIAXONE SOD INJ 1,000 MG in DEXTROSE 5% 50ML 50 ML IV SCH (22:32)
[2017-08-20 00:33] VITALS: BP 144/51; PULSE 68; TEMP 36.6; O2SAT 95
[2017-08-20] MEDS: CLINDAMYCIN IV 900 MG in DEXTROSE 5% 100ML 100 ML IV SCH ×2 (00:37→08:45)
[2017-08-20] MEDS: INSULIN REGULAR 250 UNITS in SODIUM CHLORIDE 0.9% 250ML 250 ML IV SCH (00:45)
[2017-08-20] MEDS ORDERED: DEXTROSE 50% 50 ML SYR ONE (02:31)
[2017-08-20 03:12] LABS: CALCIUM 8.6 mg/dl (8.5-10.1); CREATININE 0.87 mg/dl (0.60-1.20)
[2017-08-20 04:22] VITALS: BP 137/61; PULSE 60; TEMP 36.8; O2SAT 97
[2017-08-20] MEDS ORDERED: PHARMACY GLYCEMIC MGMT CONSULT PRN (05:51)
--- NOTE | 2017-08-20 06:46 | Discharge Summary ---
Discharge Summary Date of Service Aug 20, 2017. Discharge Summary Admission Date: Aug 18, 2017 at 11:20 Discharge Date: Aug 20, 2017 Discharge Disposition: Home Principal Diagnosis: Diverticulitis Immunizations: Have You Had Influenza Vaccine: No History of Tetanus Vaccine?: Yes History of Pneumococcal: 2nd dose due 2012 Pneumococcal Date: Aug 01, 2006 History of Hepatitis B Vaccine: No Medication Reconciliation New Medications: Cefuroxime Axetil (Cefuroxime Axetil) 500 Mg Tab 1 TAB PO BID for 3 Days, #6 TAB Clindamycin HCl (Clindamycin HCl) 300 Mg Cap 450 MG PO QID for 4 Days, #24 CAP Insulin Aspart (Novolog Penfill) 100 Unit/Ml Inj 15 UNITS SQ TIDM for 30 Days, #5 PEN Insulin Glargine (Lantus Solostar) 100 Unit/Ml Inj 70 UNITS SC BID for 30 Days, #15 PEN Amlodipine Besylate (Amlodipine Besylate) 5 Mg Tab 10 MG PO QAM for 14 Days, #28 TAB Diclofenac Sod (Voltaren) 100 Appln/100 Gm Gel 1 APPLN EXT HS for 30 Days, #1 TUBE Continued Medications: Allopurinol (Zyloprim) 100 Mg Tab 100 MG PO DAILY, TAB Aspirin (Aspirin 81) 81 Mg Tab 81 MG PO DAILY Atenolol (Atenolol) 50 Mg Tab 50 MG PO QAM Atenolol (Atenolol) 50 Mg Tab 25 MG PO QPM Furosemide (Lasix) 20 Mg Tab 20 MG PO DAILY PRN for swelling, TAB Gabapentin (Neurontin) 300 Mg Cap 300 MG PO TID, CAP Losartan Potassium (Cozaar) 100 Mg Tab 100 MG PO DAILY, TAB Magnesium Oxide (Mag-Ox) 400 Mg Tab 400 MG PO BID, TAB Metformin Hcl (Glucophage) 1,000 Mg Tab 1000 MG PO BID, TAB Methylprednisolone (Medrol) 4 Mg Tab 2 MG PO DAILY, TAB Pantoprazole (Protonix) 40 Mg Tab 40 MG PO BID, #30 TAB Potassium Citrate (Alkalinizer (Potassium Citrate ER) 1,080 Mg Tab 2160 MG PO BID Discontinued Medications: Amoxicillin & Pot Clavulanate (Augmentin 500MG) 1 Tab Tab 1 TAB PO BID for 10 Days, #20 TAB Insulin Human Isophan/Regular (Novolin 70/30) Inj 100 UNITS SC QAM Insulin Human Isophan/Regular (Novolin 70/30) Inj 85 UNITS SC QPM, BTL ADMINISTER WITH EVENING MEAL Discharge Exam Patient with mild amount of pain at the RLQ. Otherwise feeling well and came off insulin drip. Able to tolerate PO, Having bowel movements. Patient refused lab draws this morning and IV line came out. Review of Systems: Constitutional: No fever, No chills Respiratory: No cough, No sputum, No dyspnea on exertion Cardiovascular: No chest pain, No edema, No palpitations Abdomen: + pain, No nausea, No vomiting, No diarrhea, No constipation Musculoskeletal: No joint pain, No muscle pain Genitourinary - Female: No dysuria, No urinary frequency Physical Exam: General Appearance: WD/WN, no apparent distress, + obese ENT: hearing grossly normal, pharynx normal Respiratory/Chest: lungs clear, no respiratory distress, no accessory muscle use Cardiovascular: regular rate, rhythm, normal peripheral pulses Abdomen / GI: normal bowel sounds, soft, + tenderness (mild tenderness in RLQ) Extremities: normal inspection, no calf tenderness, + pedal edema (trace) Neurologic/Psychiatric: alert, normal mood/affect, oriented x 3 Skin: normal color, warm/dry, no rash Hospital Course 71 year old female with PMHx of diabetes type 2, GERD, diverticulosis, HTN, HLD , and PMR admitted with right sided abdominal pain, severe HTN and uncontrolled DM. Right sided abdominal pain possible secondary to diverticulitis - CT showed 8mm lung nodule which is stable and diverticulosis. Patients states pain is similar to previous episodes. Assuming steroids masking imaging findings (inflammation) - Abx: Ceftriaxone and clindamycin (given numerous allergies)--> thoroughly discussed case with pharmacy and feel that best outpatient treatment would clindamycin and cefuroxime to finish a 7 day course - C.diff negative, stool cultures negative - Low fibre diet HTN urgency - Continue losartan, furosemide, atenolol, amlodipine added while in hospital - IV metoprolol 5mg PRN SBP >160 - IV hydralazine 10mg PRN SBP >180 Uncontrolled type II DM - last HbA1c 08/10/17 is 10.1 - Hold 70/30 of Novolin-R and metformin - patient amenable to try new regimen - Ordered Lantus 30u BID + ISS ----> Increased to 40units bid and tighten ISS--- ->increased to 50 units bid and given 10 units of regular insulin this morning-- ---> started insulin drip - Checked pricing with case management and reasonable palma with lantus pen; therefore discussed case with pharmacy and patient discharged on 70units of lantus bid and 15 units of insulin aspart with meals. - Patient to continue metformin and told to record blood sugars once daily and bring results to PCP. - Patient following up with endocrinology as outpatient and PCP Shingles - Continue gabapentin 300mg TID - Discharged with voltaren gel PMR - Continue methylprednisolone 2mg daily CAD - Continue aspirin GERD - Continue pantoprazole Gout - Continue allpurinol Total Time Spent: Less than 30 minutes This includes examination of the patient, discharge planning, medication reconciliation, and communication with other providers. Discharge Instructions Please refer to the electronic Patient Visit Report (Discharge Instructions) for additional information. Additional Copies To Lucila Rojas M.D.; Manisha Casillas MD History Resident Physician Supervision Note: I was present with Dr. Johnson during the history and exam. I discussed the case with the resident and agree with the findings and plan as documented in the note. Any exceptions or clarifications are listed here. Pt reports single episode of right lower quadrant pain which is less severe and resolved. Shingles pain still bother her at baseline. Tolerating basal/bolus insulin without recent issue. General Appearance: no apparent distress, obese Respiratory: chest non-tender, lungs clear, normal breath sounds, no respiratory distress Cardiovascular: normal peripheral pulses, regular rate, rhythm, no murmur Gastrointestinal: normal bowel sounds, non tender, soft, no organomegaly Assessment/Plan 71 y/o female h/o HTN, IDDM, PMR, h/o TIA presents c/o abd pain in the setting of recurrent diverticulitis IDDM - tolerating basal bolus regimen well and less costly than 70/30. Will discharge on present dosing as noted RLQ pain in the setting of recurrent diverticulitis - complete course of cefdinir and clindamycin HTN - on atenolol, losartan, atenolol w/ furosemide Shingles - continue home regimen PMR - continue steroid therapy CAD - continue atenolol, ASA GERD - on PPI therapy Gout - allopurinol
[2017-08-20 07:50] VITALS: BP 133/75; PULSE 60; TEMP 36.6; O2SAT 93
[2017-08-20 08:00] VITALS: O2SAT 93
[2017-08-20] MEDS: INSULIN ASPART 100 UNITS/ML 3 ML PEN SC SCH ×2 (08:47→12:13)
[2017-08-20] MEDS: INSULIN GLARGINE SOLOSTAR 100 UNITS/ML 3 ML PEN SC SCH (08:48)
[2017-08-20] MEDS: ASPIRIN 81 MG ECTAB PO SCH (08:50)
[2017-08-20] MEDS: POTASSIUM CITRATE 10 MEQ TAB PO SCH (08:50)
[2017-08-20] MEDS: LIDODERM (LIDOCAINE) PATCH 5% TD SCH (08:50)
[2017-08-20] MEDS: LOSARTAN POTASSIUM 50 MG TAB PO SCH (08:50)
[2017-08-20] MEDS: METHYLPREDNISOLONE 4 MG TAB PO SCH (08:51)
[2017-08-20] MEDS: ALLOPURINOL 100 MG TAB PO SCH (08:52)
[2017-08-20] MEDS: PANTOprazole SOD 40 MG TAB PO SCH (08:52)
[2017-08-20] MEDS: AMLODIPINE BESYLATE 5 MG TAB PO SCH (08:52)
[2017-08-20] MEDS: GABAPENTIN 300 MG CAP PO SCH ×2 (08:53→13:55)
[2017-08-20] MEDS: MAGNESIUM OXIDE 400 MG TAB PO SCH (08:53)
[2017-08-20 11:29] VITALS: BP 151/81; PULSE 69; TEMP 36.6; O2SAT 94
[2017-08-20 12:00] VITALS: BP 145/53; PULSE 68; TEMP 36.6; O2SAT 93; O2SAT 95
--- NOTE | 2017-08-20 12:27 | Pharmacy Progress Note ---
Pharmacy Glycemic Short Note 2 Date of Service Aug 20, 2017. OUTPATIENT ANTIDIABETIC REGIMEN: * Novolin 70/30 - 100 units QAM & 85 units QPM ASSESSMENT: * Pt ready to be transitioned off drip, pt has already been on Lantus while on the drip, rates of drip from 4-96 units/hr! But now has been on hold since 4am. * Restart CF and CR * Pt ready to go home on Lantus and Novolog, covered by insurance. PLAN FOR INPATIENT GLYCEMIC CONTROL: * Discontinue insulin drip * Basal insulin * Lantus 70 units SQ BID * Bolus insulin * NovoLog per scale ACHS or Q6hrs while NPO * Goal Range: Low 120 mg/dL - High 160 mg/dL * Correction Factor: 8 mg/dL/unit * Nutritional / Prandial insulin per carb ratio of 1 unit per 2 grams CHO consumed PLAN FOR DISCHARGE: * Lantus 70 units BID * Novolog 15 units with meals * Titrate to goal with PCP * SMBG anytime pt feels hypo or hyperglycemic, and once a day rotating times of the day. Take to PCP office.
[2017-08-20] MEDS ORDERED: [UNRECOGNIZED DRUG - CODE] IM (14:50)
[2017-08-20] MEDS ORDERED: INSDGIPEN SC (14:50)
[2017-08-20] MEDS ORDERED: NRV5 PO (14:50)
[2017-08-20] MEDS ORDERED: INSU1INJ2 SQ (14:50)
--- NOTE | 2017-08-20 14:56 | Discharge Instructions ---
Discharge Instructions Date of Service Aug 20, 2017. Admission Reason for Admission: Hyperglycemia, Uncontrolled Htn Discharge Discharge Diagnosis / Problem: Diverticulitis, Hyperglycemia Discharge Goals Goal(s): Decrease discomfort, Improve function, Learn about illness, Therapeutic intervention Activity Recommendations Activity Limitations: per Instructions/Follow-up section . Instructions / Follow-Up Instructions / Follow-Up You were diagnosed as having diverticulitis while in the hospital. Diverticulitis - You will need to take 3 more days of antibiotics. Due to the fact that you have so many different allergies to antibiotics we will be sending you home with 3 days of antibiotic injections to finish a 7 day course of antibiotics. Until your symptoms resolve please continued to eat a low fibre diet. If you have worsening pain, vomiting, diarrhea, or are unable to keep down food then please come back to the emergency department. Diabetes - Your blood sugars were difficult to control while you were in the hospital. We will be sending you home with new medications for your diabetes. You can pick these up at your pharmacy. Please take these as prescribed. Please check your blood sugars once daily at different times of the day and record these so that you can bring them to your PCP for further management. HTN - We have added a new blood pressure medication to your list. It can cause some lower leg swelling so if this does occur please make your PCP aware and consider decreasing the dose or trying a different blood pressure medication Current Hospital Diet Patient's current hospital diet: Diabetes Type 2 Diet Discharge Diet Recommended Diet: Diabetes Type 2 Diet Pending Studies Studies pending at discharge: no Laboratory Results Hemoglobin A1c Test 08/10/17 10:27 Range/Units Estimated Average Glucose 243 mg/dl Hemoglobin A1c 10.1 H 4.5-5.6 % Lipid Panel Test 08/10/17 10:27 Range/Units Triglycerides Level 177 H 0-150 mg/dl Cholesterol Level 125 0-200 mg/dl HDL Cholesterol 35 mg/dl Cholesterol/HDL Ratio 3.6 LDL Cholesterol, Calculated 55 mg/dl Medical Emergencies . Who to Call and When: Medical Emergencies: If at any time you feel your situation is an emergency, please call 911 immediately. . Non-Emergent Contact Non-Emergency issues call your: Primary Care Provider . . "Provider Documentation" section prepared by Lee Johnson. . VTE Core Measure Inpt VTE Proph given/why not?: Enoxaparin (Lovenox)SQ
[2017-08-20] MEDS ORDERED: VLTG EXT (15:31)
[2017-08-20 15:36] VITALS: Ht 167.6 cm; Wt 116.3 kg
[2017-08-20] MEDS ORDERED: CLC/300 PO (15:52)
[2017-08-20] MEDS ORDERED: CEFU1TAB36 PO (15:52)
[2017-08-20] MEDS ORDERED: INSULIN GLARGINE SOLOSTAR 100 UNITS/ML 3 ML PEN SC SCH (21:00)
[2017-08-21] MEDS ORDERED: INSULIN ASPART 100 UNITS/ML 3 ML PEN SC SCH
== END 2017-08-20 16:30 | disposition home or self-care (01) | DRG 392 ==
LOC: C.EDB 15:46 → C.2E 22:00 → ENRESERV 22:06 → EDBEDREQ 22:08 → OBSVTOIN 08-18 11:20
PROVIDERS: ADMIT Hospitalist; ATTEND Family Medicine
DX: K57.92 Diverticulitis of intestine, part unspecified, without perforation or abscess without bleeding (principal); I16.0 Hypertensive urgency; I10 Essential (primary) hypertension; E11.49 Type 2 diabetes mellitus with other diabetic neurological complication; E11.65 Type 2 diabetes mellitus with hyperglycemia; Z86.73 Personal history of transient ischemic attack (TIA), and cerebral infarction without residual deficits; Z83.3 Family history of diabetes mellitus; K21.9 Gastro-esophageal reflux disease without esophagitis; E78.5 Hyperlipidemia, unspecified; M31.5 Giant cell arteritis with polymyalgia rheumatica; Z88.2 Allergy status to sulfonamides; M1A.9XX0 Chronic gout, unspecified, without tophus (tophi); B02.9 Zoster without complications; I25.10 Atherosclerotic heart disease of native coronary artery without angina pectoris

== ENCOUNTER → 2017-09-24 | Outpatient (CLI) | payer OTHER ==
[~2017-09-24] MED LIST changes: -AMOX500T PO; -CALC-494 PO; -CHOL400C PO; -FOLI1TAB8 PO; +GABA-113 PO; +INSU1INJ2 SQ; -INSU70IN2 SC; +NRV5 PO; +PANT40TA PO; -PRLSR20 PO; +VLTG EXT
== END | disposition home or self-care (01) ==
LOC: C.LAB1850 12:20
PROVIDERS: ATTEND Internal Medicine Rheumatology
DX: R70.0 Elevated erythrocyte sedimentation rate (principal); Z79.899 Other long term (current) drug therapy; M31.6 Other giant cell arteritis; E11.65 Type 2 diabetes mellitus with hyperglycemia; D50.9 Iron deficiency anemia, unspecified; R53.83 Other fatigue

== ENCOUNTER 2017-10-26 15:55 | Emergency (ER) | payer OTHER ==
[~2017-10-26] VITALS: Ht 167.6 cm; Wt 112.9 kg
[2017-10-26 16:10] VITALS: BP 199/78; PULSE 64; TEMP 36.7; O2SAT 95; Ht 167.6 cm; Wt 112.9 kg
== END 2017-10-26 16:32 | disposition left against medical advice (07) ==
LOC: C.EDB 15:57
DX: K62.5 Hemorrhage of anus and rectum (principal)

== ENCOUNTER → 2017-10-28 | Outpatient (CLI) | payer OTHER ==
[2017-10-28 17:08] LABS: HEMATOCRIT 35.4 % (37-47); HEMOGLOBIN 10.8 g/dL (12.0-16.0)
== END | disposition home or self-care (01) ==
LOC: C.LAB1850 15:42
PROVIDERS: ATTEND Registered Nurse
DX: K52.9 Noninfective gastroenteritis and colitis, unspecified (principal); R39.9 Unspecified symptoms and signs involving the genitourinary system; D50.9 Iron deficiency anemia, unspecified; K62.5 Hemorrhage of anus and rectum

== ENCOUNTER → 2017-10-30 | Outpatient (CLI) | payer OTHER ==
[2017-11-04 10:46] LABS: ANA SCREEN TC 249X NEGATIVE (NEGATIVE); ANTI-SS-A 1.4 POS AI (<1.0 NEG); ANTI-SS-B <1.0 NEG AI (<1.0 NEG); COMPLEMENT C3 TC 44859W 184 MG/DL (90-180); COMPLEMENT C4 TC 44982E 28 MG/DL (16-47)
== END | disposition home or self-care (01) ==
LOC: C.LABBFT 10:38
PROVIDERS: ATTEND Internal Medicine
DX: K57.32 Diverticulitis of large intestine without perforation or abscess without bleeding (principal); R70.0 Elevated erythrocyte sedimentation rate; M75.30 Calcific tendinitis of unspecified shoulder; Z79.899 Other long term (current) drug therapy; M31.6 Other giant cell arteritis; R10.9 Unspecified abdominal pain; E11.65 Type 2 diabetes mellitus with hyperglycemia

== ENCOUNTER 2017-11-11 17:18 | Inpatient (IN) | payer OTHER ==
[~2017-11-11] VITALS: Ht 167.6 cm; Wt 110.7 kg
[2017-11-11] MEDS ORDERED: SODIUM CHLORIDE 0.9% 1000ML 1,000 ML IV STA ×2 (18:45→20:09)
--- NOTE | 2017-11-11 18:50 | EMERGENCY ROOM VISIT NOTE ---
History Report prepared by Sweetie: Alexandria Clark Under the Supervision of: Dr. Ria Raman D.O. First contact with patient: 18:27 Chief Complaint: RECTAL BLEEDING Stated Complaint: LOWER STOMACH PAIN, SEVERE BLOOD IN BM Nursing Triage Summary: Patient states she has history of diverticulitis and for about 1 month patient c/o lower abdominal pain and blood in stools. Patient states for last 2 weeks pain increasing and increasing in the amount of blood in stools. History of Present Illness The patient is a 72 year old female who presents to the Emergency Room with complaints of worsening abdominal pain over the last 2 weeks. The patient states that she has had this lower abdominal pain over the last month. She reports that laying down helps to alleviate her lower abdominal pain. She also reports increased blood in her stool over the last two weeks. The patient states that she had an upper and lower scope done in January of last year because of blood in her stool. The patient reports a history of diverticulitis but states that her pain today does not feel like diverticulitis. She states that she was in the hospital in July for hypertension and high glucose levels and was admitted for 5 days. She states that in August and September she had blood in her stool and urine and went to her primary care physician because she did not have a GI doctor at the time and was placed on antibiotics. She also reports have back pain, the chills, and dizziness. Pt denies headache, change in vision , fevers, chest pain, shortness of breath, nausea, vomiting, and pain with urination. Source of History: patient Onset: 2 weeks Position: abdomen Quality: other (pain ) Timing: worsening Modifying Factors (Relieving): rest (laying down ) Associated Symptoms: + chills, + back pain, + weakness (dizziness), No fevers Review of Systems See HPI for pertinent positives & negatives. A total of 10 systems reviewed and were otherwise negative. Past Medical & Surgical Medical Problems: (1) Delaney's Palsy (2) Cholelithiasis Nos (3) Diabetes mellitus (4) Diverticulitis Colon (W/O Ment Of Hemorrhage) (5) DM (diabetes mellitus) type II controlled, neurological manifestation (6) Esophageal Reflux (7) GIB (gastrointestinal bleeding) (8) HTN (hypertension) (9) Hyperglycemia (10) Hypertension Nos (11) Numbness and tingling of right face (12) PMR (polymyalgia rheumatica) (13) Protruded lumbar disc (14) Renal calculus, right (15) TIA (transient ischemic attack) (16) Umbilical Hernia (17) Uncontrolled hypertension Surgical Problems: (1) History of appendectomy Family History Cancer Diabetes mellitus Gallbladder disease Hypertension Lung disease Social History Smoking Status: Never Smoker Alcohol Use: none Drug Use: none Marital Status: Occupation Status: employed Current/Historical Medications Scheduled Allopurinol (Zyloprim), 100 MG PO DAILY Amlodipine Besylate (Amlodipine Besylate), 10 MG PO QAM Aspirin (Aspirin 81), 81 MG PO DAILY Atenolol (Atenolol), 50 MG PO QAM Atenolol (Atenolol), 25 MG PO QPM Diclofenac Sod (Voltaren), 1 APPLN EXT HS Folic Acid (Folic Acid), 1 MG PO DAILY Gabapentin (Neurontin), 300 MG PO TID Insulin Isophan/Regular (Novolin 70/30), 100 UNITS SC QAM Insulin Isophan/Regular (Novolin 70/30), 85 UNITS SC QPM Losartan Potassium (Cozaar), 100 MG PO DAILY Magnesium Oxide (Mag-Ox), 400 MG PO BID Metformin Hcl (Glucophage), 1,000 MG PO BID Methotrexate (Methotrexate), 2.5 MG PO 3XWK Methylprednisolone (Medrol), 1 MG PO DAILY Pantoprazole (Protonix), 40 MG PO BID Potassium Citrate (Alkalinizer (Potassium Citrate), 540 MG PO BID Scheduled PRN Furosemide (Lasix), 20 MG PO DAILY PRN for swelling Allergies Coded Allergies: Iodinated Diagnostic Agents (Verified Allergy, Severe, ANAPHYLAXIS/ CONVULSIONS, 11/11/17) Sumatriptan (Verified Allergy, Severe, SOB,INCREASED HEARTRATE, 11/11/17) Ciprofloxacin (Verified Allergy, Intermediate, hives, 11/11/17) pt Metronidazole (Verified Allergy, Intermediate, HIVES, 11/11/17) Quinolones (Verified Allergy, Intermediate, HIVES, 11/11/17) Sulfamethoxazole w/Trimethoprim (Verified Allergy, Intermediate, hives, ) pt Adhesives (Verified Adverse Reaction, Severe, SEVERE BURNING BLISTERS, ) Tramadol (Verified Adverse Reaction, Mild, FATIGUE, 11/11/17) Physical Exam Vital Signs Date Time Temp Pulse Resp B/P (MAP) Pulse Ox O2 Delivery O2 Flow Rate FiO2 11/11/17 22:22 73 20 196/66 Room Air 11/11/17 21:08 74 20 183/66 98 Room Air 11/11/17 21:03 71 11/11/17 20:16 72 20 189/57 97 Room Air 11/11/17 17:38 36.9 70 18 185/76 94 Room Air Physical Exam GENERAL: alert, well appearing, well nourished, no distress, non-toxic EYE EXAM: normal conjunctiva, PERRL and EOM's grossly intact OROPHARYNX: no exudate, no erythema, lips, buccal mucosa, and tongue normal and mucous membranes are dry NECK: supple, no nuchal rigidity, no adenopathy, non-tender LUNGS: Clear to auscultation. Normal chest wall mechanics HEART: no murmurs, S1 normal and S2 normal ABDOMEN: abdomen soft, non-tender, normo-active bowel sounds, no masses, no rebound or guarding. BACK: Back is symmetrical on inspection and there is no deformity, no midline tenderness, no CVA tenderness. SKIN: no rashes and no bruising UPPER EXTREMITIES: upper extremities are grossly normal. LOWER EXTREMITIES: No pitting edema. NEURO EXAM: Normal sensorium, cranial nerves II-XII intact, normal speech, no weakness of arms, no weakness of legs. Medical Decision & Procedures ER Provider Diagnostic Interpretation: Radiology results have been interpreted by the radiologist and reviewed by me. CT OF THE ABDOMEN AND PELVIS WITHOUT CONTRAST CLINICAL HISTORY: Lower abdominal pain and bloody stools. History of diverticulitis. COMPARISON STUDY: CT of the abdomen and pelvis August 16, 2017. TECHNIQUE: Axial images of the abdomen and pelvis were obtained without IV contrast. Images were reviewed in the axial, sagittal, and coronal planes. A dose lowering technique was utilized adhering to the principles of ALARA. FINDINGS: A few calcified thoracic lymph nodes are incidentally noted. This indicates prior granulomatous process. An 8 mm right middle lobe nodule shown on image 10 of [address] of August 16, 2017. This has increased in size since CT of September 20, 2014. The heart is moderately enlarged. Fatty infiltration of the liver is noted. There are calcified granulomas within the spleen. A mildly enlarged distal paraesophageal lymph node remains unchanged. Unenhanced images of the adrenal glands, kidneys and pancreas are unremarkable. There is no biliary or pancreatic ductal dilatation. A gallstone is noted. There is no evidence for acute cholecystitis. Diverticulum of the second portion the duodenum is noted. There is extensive colonic diverticulosis. There is minimal pericolonic infiltration adjacent to the distal sigmoid colon. This suggests mild acute diverticulitis. There is no free air or abscess. A fat-containing umbilical hernia is noted. Sensitivity for detection mucosal lesions is diminished given CT technique. IMPRESSION: 1. Extensive colonic diverticulosis with minimal pericolonic infiltration adjacent to the distal sigmoid colon which suggests mild acute diverticulitis. No free air or abscess. 2. Fatty infiltration of the liver. 3. 8 mm right middle lobe nodule which is unchanged since CT of August 16, 2017 but increased in size since CT of September 20, 2014. A follow-up chest CT in one year to ensure stability is recommended. Electronically signed by: Jayy Rojas M.D. 11/11/2017 8:01 PM Dictated Date/Time: 11/11/2017 7:48 PM Laboratory Results Test 11/11/17 19:10 11/11/17 20:56 Prothrombin Time 10.2 SECONDS (9.0-12.0) Prothromb Time International Ratio 1.0 (0.9-1.1) Magnesium Level 1.8 mg/dl (1.8-2.4) Total Bilirubin 0.2 mg/dl (0.2-1) Aspartate Amino Transf (AST/SGOT) 57 U/L (15-37) Alanine Aminotransferase (ALT/SGPT) 68 U/L (12-78) Alkaline Phosphatase 66 U/L (45-117) Total Protein 7.6 gm/dl (6.4-8.2) Albumin 3.1 gm/dl (3.4-5.0) Globulin 4.5 gm/dl (2.5-4.0) Albumin/Globulin Ratio 0.7 (0.9-2) Lipase 135 U/L (73-393) Thyroid Stimulating Hormone (TSH) 2.300 uIu/ml (0.300-4.500) Bedside Lactic Acid Venous 2.03 mmol/L (0.90-1.70) Laboratory results per my review. Medications Administered Medications (Trade) Dose Ordered Sig/Onemi Route Start Time Stop Time Status Last Admin Dose Admin Sodium Chloride 1,000 ml @ 250 mls/hr Q4H STAT IV 11/11/17 18:45 11/11/17 22:44 DC 11/11/17 18:45 250 MLS/HR Amoxicillin/ Clavulanate Potassium (Augmentin Tab) 875 mg ONE ONCE PO 11/11/17 20:15 11/11/17 20:16 DC 11/11/17 20:43 875 MG Dicyclomine HCl (Bentyl Tab) 20 mg NOW STAT PO 11/11/17 20:09 11/11/17 20:11 DC 11/11/17 20:43 20 MG Sodium Chloride 1,000 ml @ 999 mls/hr Q1H1M STAT IV 11/11/17 20:09 11/11/17 21:09 DC 11/11/17 20:43 999 MLS/HR Fentanyl Citrate (Fentanyl Inj) 50 mcg NOW STAT IV 11/11/17 21:28 11/11/17 21:29 DC 11/11/17 21:45 50 MCG Atenolol (Tenormin Tab) 25 mg NOW STAT PO 11/11/17 22:26 11/11/17 22:27 DC 11/11/17 23:01 25 MG Acetaminophen (Tylenol Tab) 650 mg Q4H PRN PO 11/11/17 22:30 12/11/17 22:29 11/12/17 12:09 650 MG ECG Per My Interpretation Indication: other (bleeding ) Rate (beats per minute): 69 Rhythm: sinus rhythm Findings: no acute ischemic change, other (left axis deviation, normal intervals) ED Course 1830: The patient was evaluated in room B9. A complete history and physical exam was performed. 1845: Sodium Chloride 1,000 ml @ 250 mls/hr IV. 2008: Ordered Sodium Chloride 1,000 @ 999 mls/hr IV, Bentyl Tab 20 mg PO. 2015: Ordered Augmentin Tab 875 mg PO. 2020: I checked on the patient and updated her. 2100: I checked on the patient. Patient has had no recurrent diarrhea here. Patient refused rectal exam. 2119: I reviewed the patient's case with Dr. Wheeler. She will come to evaluate the patient. 2127: Ordered Fentanyl Inj 50 mcg IV. Medical Decision The patient is a 72 year old female who presents to the ED with complaints of abdominal pain. Differential diagnosis: Etiologies such as appendicitis, diverticulitis, PUD, biliary pathology, UTI, pancreatitis, obstruction, mesenteric ischemia, aortic pathology, infections, inflammatory bowel disease, renal colic, as well as others were entertained. Patient with atypical presentation and concern for recurrent episodes of recent bloody diarrhea as well as worsening abdominal pain. Patient was found to have diverticulitis on CT, symptoms uncommon for uncomplicated diverticulitis. I do not suspect bacteremia/sepsis. No evidence for perfect or abscess on CT. Patient hemodynamically stable. Patient's H&H stable compared to prior. Mild acute kidney injury noted and likely secondary to dehydration. No significantly elevated BUN to suggest upper GI bleed. Patient hyperglycemic however no evidence of DKA. Patient's initial lactic acid elevated, however upon rehydration with IV fluids this was improved. Patient aware of all results , given prior complicated history of prior GI bleed with unremarkable EGD/[place], I discussed with her possible evaluation by the hospitalist for possible admission and additional GI consultation. Patient aware of all results, all questions answered at bedside, she was agreeable with plan. Medication Reconcilliation Current Medication List: was personally reviewed by me Blood Pressure Screening Patient's blood pressure: Elevated blood pressure Blood pressure disposition: Referred to PCP Consults Time Called: 2109 Consulting Physician: Dr. Wheeler - [facility] [place] Returned Call: [phone] I reviewed the patient's case with Dr. Wheeler. She will come to evaluate the patient and see if she needs admission or if she can be discharged. Impression Primary Impression: Abdominal pain Additional Impressions: Diverticulitis GI bleed Diarrhea Anemia Hypertension EDIS (acute kidney injury) Scribe Attestation The scribe's documentation has been prepared under my direction and personally reviewed by me in its entirety. I confirm that the note above accurately reflects all work, treatment, procedures, and medical decision making performed by me. Departure Information Dispostion Being Evaluated By Hospitalist Referrals Lucila Rojas M.D. (PCP) Patient Instructions My [facility] Problem Qualifiers Primary Impression: Abdominal pain Abdominal location: lower abdomen, unspecified Qualified Codes: R10.30 - Lower abdominal pain, unspecified Additional Impressions: GI bleed GI bleed type/associated pathology: unspecified gastrointestinal hemorrhage type Qualified Codes: K92.2 - Gastrointestinal hemorrhage, unspecified Diarrhea Diarrhea type: unspecified type Qualified Codes: R19.7 - Diarrhea, unspecified Anemia Anemia type: unspecified type Qualified Codes: D64.9 - Anemia, unspecified Hypertension Hypertension type: essential hypertension Qualified Codes: I10 - Essential ( primary) hypertension
[2017-11-11 19:19] LABS: BASO % 0.3 %; BASO ABS # 0.04 K/uL (0-0.2); EOS % 3.8 %; EOS ABS # 0.49 K/uL (0-0.5); HEMATOCRIT 32.7 % (37-47); IG# 0.13 K/uL (0.00-0.02); LYMPH % 18.6 %; LYMPH ABS # 2.41 K/uL (1.2-3.4); MEAN CELL VOLUME 79.2 fL (80-100); MEAN CORPUSCULAR HEMOGLOBIN 24.2 pg (25-34); MEAN CORPUSCULAR HGB CONC 30.6 g/dl (32-36); MEAN PLATELET VOLUME 10.4 fL (7.4-10.4); MONO % 5.3 %; MONO ABS # 0.68 K/uL (0.11-0.59); NEUT ABS # 9.19 K/uL (1.4-6.5); PLATELET COUNT 382 K/uL (130-400); RED CELL DISTRIBUTION WIDTH CV 15.9 % (11.5-14.5); RED CELL DISTRIBUTION WIDTH SD 45.8 fL (36.4-46.3); WHITE BLOOD COUNT 12.94 K/uL (4.8-10.8)
[2017-11-11 19:41] LABS: ALBUMIN 3.1 gm/dl (3.4-5.0); CALCIUM 9.2 mg/dl (8.5-10.1); CREATININE 1.26 mg/dl (0.60-1.20); POTASSIUM 4.6 mmol/L (3.5-5.1)
[2017-11-11 19:43] LABS: TOTAL PROTEIN 7.6 gm/dl (6.4-8.2)
--- NOTE | 2017-11-11 20:02 | DIAGNOSTIC IMAGING REPORT ---
CT OF THE ABDOMEN AND PELVIS WITHOUT CONTRAST CLINICAL HISTORY: Lower abdominal pain and bloody stools. History of diverticulitis. COMPARISON STUDY: CT of the abdomen and pelvis August 16, 2017. TECHNIQUE: Axial images of the abdomen and pelvis were obtained without IV contrast. Images were reviewed in the axial, sagittal, and coronal planes. A dose lowering technique was utilized adhering to the principles of ALARA. FINDINGS: A few calcified thoracic lymph nodes are incidentally noted. This indicates prior granulomatous process. An 8 mm right middle lobe nodule shown on image 10 of [address] of August 16, 2017. This has increased in size since CT of September 20, 2014. The heart is moderately enlarged. Fatty infiltration of the liver is noted. There are calcified granulomas within the spleen. A mildly enlarged distal paraesophageal lymph node remains unchanged. Unenhanced images of the adrenal glands, kidneys and pancreas are unremarkable. There is no biliary or pancreatic ductal dilatation. A gallstone is noted. There is no evidence for acute cholecystitis. Diverticulum of the second portion the duodenum is noted. There is extensive colonic diverticulosis. There is minimal pericolonic infiltration adjacent to the distal sigmoid colon. This suggests mild acute diverticulitis. There is no free air or abscess. A fat-containing umbilical hernia is noted. Sensitivity for detection mucosal lesions is diminished given CT technique. IMPRESSION: 1. Extensive colonic diverticulosis with minimal pericolonic infiltration adjacent to the distal sigmoid colon which suggests mild acute diverticulitis. No free air or abscess. 2. Fatty infiltration of the liver. 3. 8 mm right middle lobe nodule which is unchanged since CT of August 16, 2017 but increased in size since CT of September 20, 2014. A follow-up chest CT in one year to ensure stability is recommended. Electronically signed by: Jayy Rojas M.D. 11/11/2017 8:01 PM Dictated Date/Time: 11/11/2017 7:48 PM
[2017-11-11] MEDS ORDERED: DICYCLOMINE HCL 20 MG TAB PO STA (20:09)
[2017-11-11] MEDS ORDERED: AMOXICILLIN/CLAVULANATE TAB 875 MG TAB PO ONE (20:15)
[2017-11-11] MEDS ORDERED: METH2.5T PO (20:26)
[2017-11-11] MEDS ORDERED: FLV1 PO (20:26)
[2017-11-11] MEDS ORDERED: POTA540T PO (20:26)
[2017-11-11] MEDS ORDERED: INSU70IN2 SC ×2 (20:26)
[2017-11-11] MEDS ORDERED: FENTANYL CITRATE INJ 50 MCG/1 ML 2 ML VIAL IV STA (21:28)
[2017-11-11] MEDS ORDERED: ONDANSETRON INJ 2 MG/ML 2 ML VIAL IV PRN (22:30)
[2017-11-11] MEDS ORDERED: ACETAMINOPHEN 325 MG TAB PO PRN (22:30)
[2017-11-11] MEDS ORDERED: GABAPENTIN 300 MG CAP PO PRN (22:30)
--- NOTE | 2017-11-11 23:19 | History and Physical ---
History & Physical Date & Time of Service: Nov 11, 2017 at 22:41 Chief Complaint: Lower Stomach Pain, Severe Blood In Bm Primary Care Physician: Lucila Rojas M.D. History of Present Illness Source: patient Patient is a 72yo C female with multiple medical problems presenting with 3 weeks of loose stools and bright red blood per rectum. She reports 10-12 loose bowel movements per day with bright red blood mixed in. This occurs with every bowel movement. She states that her bowel movements typically occur from 5AM to 4PM daily then they resolve in the evening. She does report episodes of loose stools throughout the night as well. She has bandlike lower abdominal pain and pressure that is relieved with bowel movement. Reports that this pain is different from her typical diverticular pain and has been acutely worsening over the last week. Bowel movements are not related to dietary intake. She denies rectal pain, denies fecal incontinence, denies sick contacts. Endorses tenesmus. Patient reportedly had an EGD and Colonoscopy performed January 2017 that was unrevealing. She is in the process of scheduling a capsule endoscopy. ER Course: Fentanyl 50mcg Augmentin 875mg Bentyl NSS x 1 liter Past Medical/Surgical History Medical Problems: 1. Diabetes 2. GERD 3. Diverticulosis with diverticulitis 4. HTN 5. HLP 6. PMR 7. CAD 8. Sjogrens 9. Delaney's Palsy 10. Cholelithiasis Surgical Problems: (1) History of appendectomy 2. Breast lumpectomy 3. Knee 4. Endoscopy, colonoscopy Family History Cancer Diabetes mellitus Gallbladder disease Hypertension Lung disease Social History Smoking Status: Never Smoker Alcohol Use: none Drug Use: none Marital Status: Housing status: lives with family Occupational Status: employed Immunizations History of Influenza Vaccine: No History of Tetanus Vaccine?: Yes History of Pneumococcal: 2nd dose due 2012 Pneumococcal Date: Aug 01, 2006 History of Hepatitis B Vaccine: No Allergies Coded Allergies: Iodinated Diagnostic Agents (Verified Allergy, Severe, ANAPHYLAXIS/ CONVULSIONS, 11/11/17) Sumatriptan (Verified Allergy, Severe, SOB,INCREASED HEARTRATE, 11/11/17) Ciprofloxacin (Verified Allergy, Intermediate, hives, 11/11/17) pt Metronidazole (Verified Allergy, Intermediate, HIVES, 11/11/17) Quinolones (Verified Allergy, Intermediate, HIVES, 11/11/17) Sulfamethoxazole w/Trimethoprim (Verified Allergy, Intermediate, hives, ) pt Adhesives (Verified Adverse Reaction, Severe, SEVERE BURNING BLISTERS, ) Tramadol (Verified Adverse Reaction, Mild, FATIGUE, 11/11/17) Home Medications Scheduled Allopurinol (Zyloprim), 100 MG PO DAILY Amlodipine Besylate (Amlodipine Besylate), 10 MG PO QAM Aspirin (Aspirin 81), 81 MG PO DAILY Atenolol (Atenolol), 50 MG PO QAM Atenolol (Atenolol), 25 MG PO QPM Diclofenac Sod (Voltaren), 1 APPLN EXT HS Folic Acid (Folic Acid), 1 MG PO DAILY Gabapentin (Neurontin), 300 MG PO TID Insulin Isophan/Regular (Novolin 70/30), 100 UNITS SC QAM Insulin Isophan/Regular (Novolin 70/30), 85 UNITS SC QPM Losartan Potassium (Cozaar), 100 MG PO DAILY Magnesium Oxide (Mag-Ox), 400 MG PO BID Metformin Hcl (Glucophage), 1,000 MG PO BID Methotrexate (Methotrexate), 2.5 MG PO 3XWK Methylprednisolone (Medrol), 1 MG PO DAILY Pantoprazole (Protonix), 40 MG PO BID Potassium Citrate (Alkalinizer (Potassium Citrate), 540 MG PO BID Scheduled PRN Furosemide (Lasix), 20 MG PO DAILY PRN for swelling Review of Systems Constitutional: + chills, No fever, No weakness Eyes: No worsening of vision, No diplopia ENT: No unusual epistaxis, No sore throat, No trouble swallowing Respiratory: No cough, No sputum, No wheezing, No shortness of breath Cardiovascular: No chest pain, No edema, No palpitations Abdomen: + pain, + diarrhea, + GI bleeding, No nausea, No vomiting Musculoskeletal: + joint pain Genitourinary - Female: No dysuria, No urinary frequency, No urinary urgency Neurologic: No weakness, No numbness/tingling Hematologic / Lymphatic: + abnormal bleeding/bruising Integumentary: No rash Physical Exam Vital Signs Date Time Temp Pulse Resp B/P (MAP) Pulse Ox O2 Delivery O2 Flow Rate FiO2 11/11/17 22:22 73 20 196/66 Room Air 11/11/17 21:08 74 20 183/66 98 Room Air 11/11/17 21:03 71 11/11/17 20:16 72 20 189/57 97 Room Air 11/11/17 17:38 36.9 70 18 185/76 94 Room Air General Appearance: WD/WN, no apparent distress Head: normocephalic, atraumatic Eyes: normal inspection, PERRL, EOMI, sclerae normal ENT: normal ENT inspection, pharynx normal Neck: supple, no adenopathy, thyroid normal, no JVD, trachea midline Respiratory/Chest: chest non-tender, lungs clear, normal breath sounds, no respiratory distress, no accessory muscle use Cardiovascular: regular rate, rhythm, no edema, no gallop, no murmur Abdomen/GI: normal bowel sounds (hyperactive bowel sounds), non tender ( tenderness with palpation of RLQ, no rebound or guarding), soft, no organomegaly , no pulsatile mass Back: no CVA tenderness Extremities/Musculoskelatal: normal inspection, no calf tenderness Neurologic/Psych: alert, normal mood/affect, oriented x 3 Skin: normal color, warm/dry, no rash Diagnostics Laboratory Results Results Past 24 Hours Test 11/11/17 19:10 11/11/17 20:56 Range/Units White Blood Count 12.94 4.8-10.8 K/uL Red Blood Count 4.13 4.2-5.4 M/uL Hemoglobin 10.0 12.0-16.0 g/dL Hematocrit 32.7 37-47 % Mean Corpuscular Volume 79.2 80-100 fL Mean Corpuscular Hemoglobin 24.2 25-34 pg Mean Corpuscular Hemoglobin Concent 30.6 32-36 g/dl Platelet Count 382 130-400 K/uL Mean Platelet Volume 10.4 7.4-10.4 fL Neutrophils (%) (Auto) 71.0 % Lymphocytes (%) (Auto) 18.6 % Monocytes (%) (Auto) 5.3 % Eosinophils (%) (Auto) 3.8 % Basophils (%) (Auto) 0.3 % Neutrophils # (Auto) 9.19 1.4-6.5 K/uL Lymphocytes # (Auto) 2.41 1.2-3.4 K/uL Monocytes # (Auto) 0.68 0.11-0.59 K/uL Eosinophils # (Auto) 0.49 0-0.5 K/uL Basophils # (Auto) 0.04 0-0.2 K/uL RDW Standard Deviation 45.8 36.4-46.3 fL RDW Coefficient of Variation 15.9 11.5-14.5 % Immature Granulocyte % (Auto) 1.0 % Immature Granulocyte # (Auto) 0.13 0.00-0.02 K/uL Prothrombin Time 10.2 9.0-12.0 SECONDS Prothromb Time International Ratio 1.0 0.9-1.1 Sodium Level 138 136-145 mmol/L Potassium Level 4.6 3.5-5.1 mmol/L Chloride Level 107 98-107 mmol/L Carbon Dioxide Level 25 21-32 mmol/L Anion Gap 6.0 3-11 mmol/L Blood Urea Nitrogen 21 7-18 mg/dl Creatinine 1.26 0.60-1.20 mg/dl Est Creatinine Clear Calc Drug Dose 50.9 ml/min Estimated GFR () 49.3 Estimated GFR (Non- 42.5 BUN/Creatinine Ratio 16.9 10-20 Random Glucose 290 70-99 mg/dl Bedside Lactic Acid Venous 3.89 2.03 0.90-1.70 mmol/L Calcium Level 9.2 8.5-10.1 mg/dl Magnesium Level 1.8 1.8-2.4 mg/dl Total Bilirubin 0.2 0.2-1 mg/dl Aspartate Amino Transf (AST/SGOT) 57 15-37 U/L Alanine Aminotransferase (ALT/SGPT) 68 12-78 U/L Alkaline Phosphatase 66 45-117 U/L Total Protein 7.6 6.4-8.2 gm/dl Albumin 3.1 3.4-5.0 gm/dl Globulin 4.5 2.5-4.0 gm/dl Albumin/Globulin Ratio 0.7 0.9-2 Lipase 135 73-393 U/L Diagnostic Radiology CT OF THE ABDOMEN AND PELVIS WITHOUT CONTRAST CLINICAL HISTORY: Lower abdominal pain and bloody stools. History of diverticulitis. COMPARISON STUDY: CT of the abdomen and pelvis August 16, 2017. TECHNIQUE: Axial images of the abdomen and pelvis were obtained without IV contrast. Images were reviewed in the axial, sagittal, and coronal planes. A dose lowering technique was utilized adhering to the principles of ALARA. FINDINGS: A few calcified thoracic lymph nodes are incidentally noted. This indicates prior granulomatous process. An 8 mm right middle lobe nodule shown on image 10 of [address] of August 16, 2017. This has increased in size since CT of September 20, 2014. The heart is moderately enlarged. Fatty infiltration of the liver is noted. There are calcified granulomas within the spleen. A mildly enlarged distal paraesophageal lymph node remains unchanged. Unenhanced images of the adrenal glands, kidneys and pancreas are unremarkable. There is no biliary or pancreatic ductal dilatation. A gallstone is noted. There is no evidence for acute cholecystitis. Diverticulum of the second portion the duodenum is noted. There is extensive colonic diverticulosis. There is minimal pericolonic infiltration adjacent to the distal sigmoid colon. This suggests mild acute diverticulitis. There is no free air or abscess. A fat-containing umbilical hernia is noted. Sensitivity for detection mucosal lesions is diminished given CT technique. IMPRESSION: 1. Extensive colonic diverticulosis with minimal pericolonic infiltration adjacent to the distal sigmoid colon which suggests mild acute diverticulitis. No free air or abscess. 2. Fatty infiltration of the liver. 3. 8 mm right middle lobe nodule which is unchanged since CT of August 16, 2017 but increased in size since CT of September 20, 2014. A follow-up chest CT in one year to ensure stability is recommended. Impression Assessment and Plan 72yo C female with multiple medical problems presenting with 3 weeks of loose stools and hematochezia. 1. Hematochezia - patient with history of diverticulosis with diverticulitis. CT abdomen suggests presence of mild diverticulitis. Patient is hemodynamically stable, Hg of 10 (down from 10.8). She has had extensive outpatient workup for diarrhea to include negative O&P, negative Giardia, negative cryptosporidium/isospora and cyclospora (patient is immunosuppressed with daily steroids and MTX). -Monitor CBC daily -Hold ASA -GI consultation -FOBT -Patient with multiple allergies to antibiotics - will treat with Clindamycin and Ceftriaxone -Probiotic daily 2. Diarrhea - etiology unclear. Patient has had prior workup to exclude infectious source. Possibly secondary to diverticulitis -Check c. diff -Check fecal WBCs -Additional stool studies at discretion of GI and primary team 3. Elevated lactate - patient with initial lactate of 3.89 which improved to 2.03 after IVF administration. She is hemodynamically stable, no anion gap, abdomen is soft and mildly tender, no ischemia suggested on CT. Most likely secondary to volume depletion in setting of diarrheal losses -IVF, NSS at 100mL/hr x 2 liters -Repeat lactate with AM labs 4. EDIS - patient with elevated Cr-1.26, baseline of 0.87. Most likely secondary to prerenal azotemia in setting of GI losses -IVF as above -Hold PRN Lasix -Monitor BUN/Cr/electrolytes and urine output 5. Diabetes - patient with poorly controlled diabetes. Blood sugar 290 today -Continue Novolin 70/30 85 units qPM and 100 units qAM -Hold Metformin -Glycemic management consult -Diabetic diet 6. Hypertension - patient with poorly controlled hypertension. 183/66 at present -Continue Amlodipine 10mg po daily - Continue Atenolol 25mg po qPM and 50mg po q AM -Continue Cozaar 100mg po daily 7. GERD - stable -Continue Protonix 40mg po daily 8. PMR - stable -Continue daily Medrol 1mg -MTX q Thursday 9. History of renal stones -Continue Allopurinol daily 10. F/E/N - NSS at 100mL/hr x 2 liters, monitor electrolytes and replete as needed, Diabetic diet as tolerated, Magnesium oxide and Folic acid daily 11. Ppx - Carl stockings and ambulation, no chemical ppx in setting of GIB 12. Code -Full 13. Dispo - admit to general medical floor. GI consultation Resuscitation Status Full VTE Prophylaxis Will order VTE Prophylaxis: Yes
[2017-11-11 23:26] VITALS: O2SAT 99
[2017-11-11 23:45] VITALS: BP 170/78; PULSE 70; TEMP 37; O2SAT 91; BMI 39.4
[2017-11-11] MEDS ORDERED: INSULIN HUMAN NPH SC ONE (23:59)
[2017-11-12] MEDS ORDERED: PHARMACY GLYCEMIC MGMT CONSULT PRN (00:03)
[2017-11-12] MEDS ORDERED: DEXTROSE 50% 50 ML SYR IV PRN (00:15)
[2017-11-12] MEDS ORDERED: GLUCOSE 40% GEL 15 GM TUBE PO PRN (00:15)
[2017-11-12] MEDS ORDERED: GLUCAGON FOR INJ 1 MG VIAL SQ PRN (00:15)
[2017-11-12] MEDS: SODIUM CHLORIDE 0.9% 1000ML 1,000 ML IV SCH ×2 (00:15→09:57)
[2017-11-12] MEDS ORDERED: GLUCOSE 10 TABS/TUBE PO PRN (00:15)
[2017-11-12] MEDS: INSULIN ASPART 100 UNITS/ML 3 ML PEN SC SCH ×6 (00:33→21:23)
[2017-11-12] MEDS: CLINDAMYCIN IV 600 MG in DEXTROSE 5% 50ML 50 ML IV SCH ×3 (01:07→16:45)
[2017-11-12 01:12] VITALS: BP 130/66
[2017-11-12] MEDS: CEFTRIAXONE SOD INJ 1 GM in DEXTROSE 5% ADD-VANTAGE 50ML 50 ML IV SCH (01:49)
[2017-11-12 05:39] LABS: BASO % 0.2 %; BASO ABS # 0.02 K/uL (0-0.2); EOS % 4.5 %; HEMATOCRIT 31.8 % (37-47); HEMOGLOBIN 9.8 g/dL (12.0-16.0); IG# 0.13 K/uL (0.00-0.02); LYMPH % 16.2 %; LYMPH ABS # 1.81 K/uL (1.2-3.4); MEAN CELL VOLUME 79.3 fL (80-100); MEAN CORPUSCULAR HEMOGLOBIN 24.4 pg (25-34); MEAN CORPUSCULAR HGB CONC 30.8 g/dl (32-36); MEAN PLATELET VOLUME 10.2 fL (7.4-10.4); MONO ABS # 0.56 K/uL (0.11-0.59); NEUT % 72.9 %; NEUT ABS # 8.15 K/uL (1.4-6.5); PLATELET COUNT 343 K/uL (130-400); RED CELL DISTRIBUTION WIDTH SD 46.2 fL (36.4-46.3); WHITE BLOOD COUNT 11.17 K/uL (4.8-10.8)
[2017-11-12 06:05] LABS: CALCIUM 8.4 mg/dl (8.5-10.1); CREATININE 0.82 mg/dl (0.60-1.20); POTASSIUM 3.8 mmol/L (3.5-5.1)
[2017-11-12 06:56] LABS: HEMOGLOBIN A1C 10.2 % (4.5-5.6)
[2017-11-12 07:48] VITALS: BP 148/73; PULSE 76; TEMP 36.6; O2SAT 92
[2017-11-12] MEDS ORDERED: POTASSIUM CITRATE PO SCH (09:00)
[2017-11-12] MEDS: SACCHAROMYCES BOUL (FLORASTOR) 250 MG CAP PO SCH (09:01)
[2017-11-12] MEDS: AMLODIPINE BESYLATE 5 MG TAB PO SCH (09:02)
[2017-11-12] MEDS: LOSARTAN POTASSIUM 50 MG TAB PO SCH (09:02)
[2017-11-12] MEDS: ALLOPURINOL 100 MG TAB PO SCH (09:02)
[2017-11-12] MEDS: PANTOprazole SOD 40 MG TAB PO SCH ×2 (09:03→21:16)
[2017-11-12] MEDS: MAGNESIUM OXIDE 400 MG TAB PO SCH ×2 (09:04→21:16)
[2017-11-12] MEDS: INSULIN HUMAN NPH SC SCH ×2 (09:12→18:49)
--- NOTE | 2017-11-12 10:24 | Pharmacy Progress Note ---
Glycemic Control Intl Consult Date of Service Nov 12, 2017. Scope Glycemic Pharmacist consulted by Deidra Wheeler on 11/11/17 for glycemic control and to write orders per [facility] inpatient glycemic control protocol Objective Weight (Kilograms): 110.700 Accuchecks BSG (last 24hrs): Test 11/11/17 19:10 11/12/17 00:12 11/12/17 03:58 11/12/17 05:30 Random Glucose 290 mg/dl (70-99) 269 mg/dl (70-99) Bedside Glucose 224 mg/dl (70-90) 283 mg/dl (70-90) Laboratory Data (last 24hrs) Test 11/11/17 19:10 11/12/17 05:30 Anion Gap 6.0 mmol/L 3.0 mmol/L BUN/Creatinine Ratio 16.9 18.8 Blood Urea Nitrogen 21 mg/dl 15 mg/dl Creatinine 1.26 mg/dl 0.82 mg/dl Potassium Level 4.6 mmol/L 3.8 mmol/L Sodium Level 138 mmol/L 136 mmol/L White Blood Count 12.94 K/uL 11.17 K/uL Red Blood Count 4.13 M/uL 4.01 M/uL Hemoglobin 10.0 g/dL 9.8 g/dL Hematocrit 32.7 % 31.8 % Mean Corpuscular Volume 79.2 fL 79.3 fL Mean Corpuscular Hemoglobin 24.2 pg 24.4 pg Mean Corpuscular Hemoglobin Concent 30.6 g/dl 30.8 g/dl Platelet Count 382 K/uL 343 K/uL Mean Platelet Volume 10.4 fL 10.2 fL Neutrophils (%) (Auto) 71.0 % 72.9 % Lymphocytes (%) (Auto) 18.6 % 16.2 % Monocytes (%) (Auto) 5.3 % 5.0 % Eosinophils (%) (Auto) 3.8 % 4.5 % Basophils (%) (Auto) 0.3 % 0.2 % Neutrophils # (Auto) 9.19 K/uL 8.15 K/uL Lymphocytes # (Auto) 2.41 K/uL 1.81 K/uL Monocytes # (Auto) 0.68 K/uL 0.56 K/uL Eosinophils # (Auto) 0.49 K/uL 0.50 K/uL Basophils # (Auto) 0.04 K/uL 0.02 K/uL Hemoglobin A1c 10.2 % HbA1c Test 11/12/17 05:30 Hemoglobin A1c 10.2 % (4.5-5.6) H Recent Pertinent Medications Outpatient Anti-diabetic Regimen: * Novolin 70/30- 100 units QAM; 85 units QPM; Metformin 1g PO BID * A1c = 10.2 % 11/12/17 The patient is currently receiving: * Basal insulin: NPH 70 units last night, then increased to 80 units every 12 hours * Correctional Insulin: Novolog Correction per scale ACHS Goal Range: Low 110 mg/dL - High 150 mg/dL Correction Factor: 10 mg/dL/unit * Prandial insulin: Per carb ratio of 1 unit per 4 grams CHO consumed * Oral Agents: On HOLD Risk Factors for Insulin Resistance: * Infection: Clindamycin, Rocephin * Diet: Type 2 DM Assessment & Plan ASSESSMENT: * 72 year old uncontrolled type 2 diabetic admitted with GI bleeding, diarrhea, started on antibiotics. * Hyperglycemic on admission (290mg/dl), and started on NPH for basal since patient is on mixed insulin at home, for better transition back to home medications upon discharge * NPH increase already this morning for continued BSGs in the 200s, will continue with this regimen and adjust as needed, BSG down to 212mg/dl. * Will hold oral agent (metformin) for admission and utilize SQ basal bolus insulin regimen which is the recommended regimen for inpatient glycemic control. PLAN FOR INPATIENT GLYCEMIC CONTROL: * Holding outpatient oral diabetes medications * Basal insulin with NPH 80 units SQ BID * Correctional Insulin with NOVOLOG per scale ACHS or Q6hrs while NPO * Goal Range: Low 110 mg/dL - High 150 mg/dL * Correction Factor: 10 mg/dL/unit * Nutritional / Prandial insulin per carb ratio of 1 unit per 4 grams CHO consumed * Please note that the plan above was derived based on current level of insulin resistance and hospital stress. These recommendations are appropriate for inpatient admission only. Plan of care upon discharge will need to be reassessed to avoid potential outpatient hypo/hyperglycemia. Thank you.
[2017-11-12 12:04] VITALS: Ht 167.6 cm; Wt 110.7 kg
--- NOTE | 2017-11-12 12:17 | Gastrointestinal Consultation ---
Gastrointestinal Consultation Date of Consultation: Nov 12, 2017 Attending Physician: Deidra Wheeler Consulting Physician: Kia Reason for Consultation: Hematochezia History of Present Illness Patient is a 72 year old female admitted for hematochezia. She reports 3 weeks of loose stool with brbpbr. Approximately 10-12 bowel movements per day with bright ref blood mixed in, occurring with nearly every bowel movement. Normally, bowel movements occur from early to am to late afternoon, subsiding in the evening, though lately has been having some nocturnal stools. In addition, to hematochezia, she has been having abdominal pain in her lower abdomen (left to right sided) that feels like a band squeezing , relieved with bowel movements. No associated rectal pain, tenesmus, new food intake of uncooked meats or seafood that she is aware of, no recent contacts. Last EGD/Colonoscopy 02/02 that was negative. Workup for anemia (microctic) incuding outpatient VCE (has not had it done yet due to insurance issues). While in the ED, she was given a liter of NSS, Bentyl, Fentanyl 50 mcg, and Augmentin [address] A/P done in the ED showing extensive colonic diverticulosis with minimal pericolonic infiltration adjacent to the distal sigmoid colon which suggestive of mild acute diverticulitis. No free air or abscess. Fatty infiltration of the liver. 8 mm right middle lobe nodule which is unchanged since CT of August 16, 2017but increased in size since CT of September 20, 2014. This morning, she reports that her pain has improved and frequency of bowel movements improving. Admission labs significant for a mild leukocytosis (12), mild microcytic anemia stable, mild AST/ALT elevation likely from underlying fatty liver. She reports this is her second bout of diveritculitis this year (last one in ), prior to that approximately 3-4 episodes in 2017. It has been suggested to her in the past to consider seeing surgery for a possible sigmoidectomy which she seems open to. ER Course: Fentanyl 50mcg Augmentin 875mg Bentyl NSS x 1 liter Past Medical/Surgical History Medical Problems: (1) Abdominal pain Status: Acute (2) EDIS (acute kidney injury) Status: Acute (3) Anemia Status: Acute (4) Diarrhea Status: Acute (5) Diarrhea Status: Acute (6) Diverticulitis Status: Acute (7) Dyspnea Status: Acute (8) GI bleed Status: Acute (9) Heart palpitations Status: Acute (10) Hypertension Status: Acute (11) Lower abdominal pain Status: Acute (12) Obstructive uropathy Status: Acute (13) Poorly-controlled hypertension Status: Acute (14) Substernal precordial chest pain Status: Acute (15) UTI (urinary tract infection) Status: Acute Past Surgical History: Pshx: none Family History Cancer Diabetes mellitus Gallbladder disease Hypertension Lung disease Social History Smoking Status: Never Smoker Alcohol Use: none Drug Use: none Marital Status: Occupation Status: employed Allergies Coded Allergies: Iodinated Diagnostic Agents (Verified Allergy, Severe, ANAPHYLAXIS/ CONVULSIONS, 11/11/17) Sumatriptan (Verified Allergy, Severe, SOB,INCREASED HEARTRATE, 11/11/17) Ciprofloxacin (Verified Allergy, Intermediate, hives, 11/11/17) pt Metronidazole (Verified Allergy, Intermediate, HIVES, 11/11/17) Quinolones (Verified Allergy, Intermediate, HIVES, 11/11/17) Sulfamethoxazole w/Trimethoprim (Verified Allergy, Intermediate, hives, ) pt Adhesives (Verified Adverse Reaction, Severe, SEVERE BURNING BLISTERS, ) Tramadol (Verified Adverse Reaction, Mild, FATIGUE, 11/11/17) Current Medications Home Meds and Scripts Medications Dose Route/Sig Max Daily Dose Days Date Category Novolin 70/30 (Insulin Human Isoph/Insulin Regular) Susp 85 Units SC QPM 11/11/17 Reported Novolin 70/30 (Insulin Human Isoph/Insulin Regular) Susp 100 Units SC QAM 11/11/17 Reported Potassium Citrate (Potassium Citrate (Alkalinizer) 540 Mg Tab 540 Mg PO BID 11/11/17 Reported Methotrexate 2.5 Mg Tab 2.5 Mg PO 3XWK 11/11/17 Reported Folic Acid 1 Mg Tab 1 Mg PO DAILY 11/11/17 Reported Voltaren (Diclofenac Sod) 100 Appln/100 Gm Gel 1 Appln EXT HS 30 08/20/17 Rx Amlodipine Besylate 5 Mg Tab 10 Mg PO QAM 14 08/20/17 Rx Neurontin (Gabapentin) 300 Mg Cap 300 Mg PO TID 08/16/17 Reported Protonix (Pantoprazole Sodium) 40 Mg Tab 40 Mg PO BID 08/16/17 Reported Medrol (Methylprednisolone) 4 Mg Tab 1 Mg PO DAILY 04/24/17 Reported Zyloprim (Allopurinol) 100 Mg Tab 100 Mg PO DAILY 04/24/17 Reported Lasix (Furosemide) 20 Mg Tab 20 Mg PO DAILY PRN 04/24/17 Reported Cozaar (Losartan Potassium) 100 Mg Tab 100 Mg PO DAILY 04/24/17 Reported Atenolol 50 Mg Tab 25 Mg PO QPM 04/24/17 Reported Atenolol 50 Mg Tab 50 Mg PO QAM 04/24/17 Reported Glucophage (Metformin Hcl) 1,000 Mg Tab 1,000 Mg PO BID 05/16/16 Reported Mag-Ox (Magnesium Oxide) 400 Mg Tab 400 Mg PO BID 02/26/14 Reported Aspirin 81 (Aspirin) 81 Mg Tab 81 Mg PO DAILY 01/26/14 Reported Review of Systems Constitutional: + chills, No fever, No fatigue Respiratory: No cough, No sputum Cardiac: No chest pain, No orthopnea Abdomen: + see HPI Musculoskeletal: No joint pain Physical Exam Date Time Temp Pulse Resp B/P (MAP) Pulse Ox O2 Delivery O2 Flow Rate FiO2 11/12/17 07:48 36.6 76 18 148/73 (98) 92 Room Air 11/12/17 07:45 Room Air 11/12/17 01:12 130/66 (87) 11/11/17 23:45 Room Air 11/11/17 23:45 37.0 70 16 170/78 (108) 91 Room Air 11/11/17 23:45 Room Air 11/11/17 23:26 71 20 170/65 99 11/11/17 23:15 71 20 170/65 99 Room Air 11/11/17 22:22 73 20 196/66 Room Air 11/11/17 21:08 74 20 183/66 98 Room Air 11/11/17 21:03 71 11/11/17 20:16 72 20 189/57 97 Room Air 11/11/17 17:38 36.9 70 18 185/76 94 Room Air General Appearance: WD/WN, no apparent distress, + obese Eyes: normal inspection, PERRL, EOMI Neck: supple, no adenopathy, thyroid normal Respiratory/Chest: chest non-tender, lungs clear, normal breath sounds Cardiovascular: regular rate, rhythm, no edema, no gallop, no JVD, no murmur Extremities: normal range of motion, non-tender, normal inspection 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, alert, oriented x 3 Skin: normal color, no jaundice Laboratory Results Last 24 Hours Test 11/11/17 19:10 11/11/17 20:56 11/12/17 00:12 11/12/17 03:58 White Blood Count 12.94 K/uL Red Blood Count 4.13 M/uL Hemoglobin 10.0 g/dL Hematocrit 32.7 % Mean Corpuscular Volume 79.2 fL Mean Corpuscular Hemoglobin 24.2 pg Mean Corpuscular Hemoglobin Concent 30.6 g/dl Platelet Count 382 K/uL Mean Platelet Volume 10.4 fL Neutrophils (%) (Auto) 71.0 % Lymphocytes (%) (Auto) 18.6 % Monocytes (%) (Auto) 5.3 % Eosinophils (%) (Auto) 3.8 % Basophils (%) (Auto) 0.3 % Neutrophils # (Auto) 9.19 K/uL Lymphocytes # (Auto) 2.41 K/uL Monocytes # (Auto) 0.68 K/uL Eosinophils # (Auto) 0.49 K/uL Basophils # (Auto) 0.04 K/uL RDW Standard Deviation 45.8 fL RDW Coefficient of Variation 15.9 % Immature Granulocyte % (Auto) 1.0 % Immature Granulocyte # (Auto) 0.13 K/uL Prothrombin Time 10.2 SECONDS Prothromb Time International Ratio 1.0 Sodium Level 138 mmol/L Potassium Level 4.6 mmol/L Chloride Level 107 mmol/L Carbon Dioxide Level 25 mmol/L Anion Gap 6.0 mmol/L Blood Urea Nitrogen 21 mg/dl Creatinine 1.26 mg/dl Est Creatinine Clear Calc Drug Dose 50.9 ml/min Estimated GFR () 49.3 Estimated GFR (Non- 42.5 BUN/Creatinine Ratio 16.9 Random Glucose 290 mg/dl Bedside Lactic Acid Venous 3.89 mmol/L 2.03 mmol/L Calcium Level 9.2 mg/dl Magnesium Level 1.8 mg/dl Total Bilirubin 0.2 mg/dl Aspartate Amino Transf (AST/SGOT) 57 U/L Alanine Aminotransferase (ALT/SGPT) 68 U/L Alkaline Phosphatase 66 U/L Total Protein 7.6 gm/dl Albumin 3.1 gm/dl Globulin 4.5 gm/dl Albumin/Globulin Ratio 0.7 Lipase 135 U/L Thyroid Stimulating Hormone (TSH) 2.300 uIu/ml Bedside Glucose 224 mg/dl 283 mg/dl Test 11/12/17 05:29 11/12/17 05:30 Hepatitis C Antibody Screen NEG White Blood Count 11.17 K/uL Red Blood Count 4.01 M/uL Hemoglobin 9.8 g/dL Hematocrit 31.8 % Mean Corpuscular Volume 79.3 fL Mean Corpuscular Hemoglobin 24.4 pg Mean Corpuscular Hemoglobin Concent 30.8 g/dl Platelet Count 343 K/uL Mean Platelet Volume 10.2 fL Neutrophils (%) (Auto) 72.9 % Lymphocytes (%) (Auto) 16.2 % Monocytes (%) (Auto) 5.0 % Eosinophils (%) (Auto) 4.5 % Basophils (%) (Auto) 0.2 % Neutrophils # (Auto) 8.15 K/uL Lymphocytes # (Auto) 1.81 K/uL Monocytes # (Auto) 0.56 K/uL Eosinophils # (Auto) 0.50 K/uL Basophils # (Auto) 0.02 K/uL RDW Standard Deviation 46.2 fL RDW Coefficient of Variation 16.0 % Immature Granulocyte % (Auto) 1.2 % Immature Granulocyte # (Auto) 0.13 K/uL Sodium Level 136 mmol/L Potassium Level 3.8 mmol/L Chloride Level 107 mmol/L Carbon Dioxide Level 26 mmol/L Anion Gap 3.0 mmol/L Blood Urea Nitrogen 15 mg/dl Creatinine 0.82 mg/dl Est Creatinine Clear Calc Drug Dose 78.2 ml/min Estimated GFR () 82.9 Estimated GFR (Non- 71.5 BUN/Creatinine Ratio 18.8 Random Glucose 269 mg/dl Estimated Average Glucose 246 mg/dl Hemoglobin A1c 10.2 % Lactic Acid Level 1.4 mmol/L Calcium Level 8.4 mg/dl Impression Patient is a 72 year old female with a history of htn, diabetes, prior episodes of diverticulitis, admitted for hematochezia likely secondary to recurrent mild diverticulitis. Plan ->Hematochezia- patient refused rectal exam. Imaging with CT A/P non contrast suggestive of mild diverticulitis- received one dose of Augmentin during admission, currently on IV Clindamycin. Given allergy history to Cipro/Flagyl, would transition to oral Augmentin for 10 day course. Given recurrent diverticulitis (2nd episode this year, 3-4 episodes in 2017)- would consider outpatient referral to surgery for possible sigmoidectomy. ->Microcytic anemia- egd/colon negative in 02/02, has been trying to get an outpatient VCE study done (has not been able to be done yet due to insurance authorization issues- she is still following with [employer] to get this done). -> Fatty liver - ast/alt elevation likely from underlying fatty liver. Continue with good diabetic control and attempts at weight loss as an outpatient. Attg add: I interviewed and examined pt, reviewed chart and labs. Pt with reported BRBPR, abd pain, diarrhea for several weeks. labs sig for chronic anemia, unchanged; non con CT read as possible tic-itis. Of note, she has a h/ o difficult cscopy due to sigmoid diverticular disease last year. A/p: Symptoms likely related to chronic diverticular disease. Her ongoing complaints of incomplete evac and overflow diarrhea,as well as h/o difficult csocpy in the past, suggest a diverticular stricture. Agree with abx, low residue diet when tolerated. Would rec eventual surg consult for sigmoid colectomy. She has had a recent complete cscopy; this does not need to be repeated. Defer VCE until she has fully convalesced from her diverticulitis. Will sign off, but please consult as needed.
[2017-11-12 15:28] VITALS: BP 116/54; PULSE 76; TEMP 36.5; O2SAT 92
[2017-11-12] MEDS: METHYLPREDNISOLONE 4 MG TAB PO SCH (16:13)
[2017-11-12] MEDS ORDERED: INSULIN HUMAN REGULAR PER UNIT 6 UNITS in SYRINGE 5.94 ML IV ONE (20:30)
[2017-11-12] MEDS ORDERED: DICLOFENAC SOD 1% GEL 100 GM TUBE EXT SCH (21:00)
[2017-11-12 22:59] VITALS: BP 143/67; PULSE 59; TEMP 36.7; O2SAT 94
--- NOTE | 2017-11-12 23:34 | Progress Note ---
Subjective Date of Service: Nov 12, 2017. Subjective Pt evaluation today including: conversation w/ patient, physical exam, chart review, lab review, review of studies (CT abd/pelvis, stool studies), conversation w/ dairy feed sales consultant (Dr. Romero), review of inpatient medication list Pain: LLQ abd pain PO Intake: did poorly w/ breakfast - gave her abd pain Voiding: no voiding problems patient reports "numerous episodes" of diverticulitis over the years Dr. Romero reports that colonoscopy in 2017 showed severe sigmoid diverticulosis and narrowing of the sigmoid lumen patient states she can't take/tolerate oral iron supplementation had worsening LLQ pain after eating breakfast today no vomiting Problem List Medical Problems: (1) Abdominal pain Status: Acute (2) EDIS (acute kidney injury) Status: Acute (3) Anemia Status: Acute (4) Diarrhea Status: Acute (5) Diarrhea Status: Acute (6) Diverticulitis Status: Acute (7) Dyspnea Status: Acute (8) GI bleed Status: Acute (9) Heart palpitations Status: Acute (10) Hypertension Status: Acute (11) Lower abdominal pain Status: Acute (12) Obstructive uropathy Status: Acute (13) Poorly-controlled hypertension Status: Acute (14) Substernal precordial chest pain Status: Acute (15) UTI (urinary tract infection) Status: Acute Review of Systems Constitutional: No fever Respiratory: No shortness of breath Cardiac: No chest pain Abdomen: + see HPI, + pain, + diarrhea, + GI bleeding, No nausea, No vomiting Objective Vital Signs Date Time Temp Pulse Resp B/P (MAP) Pulse Ox O2 Delivery O2 Flow Rate FiO2 11/12/17 22:59 36.7 59 17 143/67 (92) 94 Room Air 11/12/17 16:00 Room Air 11/12/17 15:28 36.5 76 18 116/54 (74) 92 Room Air 11/12/17 07:48 36.6 76 18 148/73 (98) 92 Room Air 11/12/17 07:45 Room Air 11/12/17 01:12 130/66 (87) 11/11/17 23:45 Room Air 11/11/17 23:45 37.0 70 16 170/78 (108) 91 Room Air 11/11/17 23:45 Room Air 11/11/17 23:26 71 20 170/65 99 Physical Exam General Appearance: no apparent distress, + obese ENT: pharynx normal Neck: no JVD Respiratory/Chest: lungs clear, no respiratory distress, no accessory muscle use Cardiovascular: regular rate, rhythm, no gallop, no murmur Abdomen: normal bowel sounds, soft, no organomegaly, + tenderness (LLQ) Extremities: no pedal edema Neurologic/Psychiatric: alert, oriented x 3 Laboratory Results Last 24 Hours Test 11/12/17 00:12 11/12/17 03:58 11/12/17 05:29 11/12/17 05:30 Bedside Glucose 224 mg/dl 283 mg/dl Hepatitis C Antibody Screen NEG White Blood Count 11.17 K/uL Red Blood Count 4.01 M/uL Hemoglobin 9.8 g/dL Hematocrit 31.8 % Mean Corpuscular Volume 79.3 fL Mean Corpuscular Hemoglobin 24.4 pg Mean Corpuscular Hemoglobin Concent 30.8 g/dl Platelet Count 343 K/uL Mean Platelet Volume 10.2 fL Neutrophils (%) (Auto) 72.9 % Lymphocytes (%) (Auto) 16.2 % Monocytes (%) (Auto) 5.0 % Eosinophils (%) (Auto) 4.5 % Basophils (%) (Auto) 0.2 % Neutrophils # (Auto) 8.15 K/uL Lymphocytes # (Auto) 1.81 K/uL Monocytes # (Auto) 0.56 K/uL Eosinophils # (Auto) 0.50 K/uL Basophils # (Auto) 0.02 K/uL RDW Standard Deviation 46.2 fL RDW Coefficient of Variation 16.0 % Immature Granulocyte % (Auto) 1.2 % Immature Granulocyte # (Auto) 0.13 K/uL Sodium Level 136 mmol/L Potassium Level 3.8 mmol/L Chloride Level 107 mmol/L Carbon Dioxide Level 26 mmol/L Anion Gap 3.0 mmol/L Blood Urea Nitrogen 15 mg/dl Creatinine 0.82 mg/dl Est Creatinine Clear Calc Drug Dose 78.2 ml/min Estimated GFR () 82.9 Estimated GFR (Non- 71.5 BUN/Creatinine Ratio 18.8 Random Glucose 269 mg/dl Estimated Average Glucose 246 mg/dl Hemoglobin A1c 10.2 % Lactic Acid Level 1.4 mmol/L Calcium Level 8.4 mg/dl Test 11/12/17 17:36 Bedside Glucose 255 mg/dl Assessment and Plan 72yo female - 1. sigmoid diverticulitis - cut diet back to clear liquids. Continue IV abx ( ceftriaxone, clindamycin -- these were chosen due to numerous allergies). Cont IVF and pain control. Appreciate GI consultation. In light of severe sigmoid disease and recurrent episodes of diverticulitis she should consult with colorectal surgery as an outpatient to discuss elective surgery in the future. GI suggested that repeat colonoscopy in the next 2 months is not necessary at this time. 2. chronic GI bleeding x 4+ weeks - bright red blood per rectum - likely due to severe diverticulosis. Has resulting microcytic anemia. There had been discussion about an outpatient capsule endoscopy - GI recommending deferring this until #1 has resolved. 3. diarrhea - extensive infectious w/u (stool cx, c. diff, giardia, o/p, etc) all negative. GI feels this is likely overflow stooling in the setting of lumen narrowing from a potential diverticular stricture. Surgery consult after d/c has been suggested. 4. microcytic anemia - most certainly iron deficiency anemia. Check iron studies to confirm but likely she has such. Consider IV iron (can't tolerate PO iron) prior to discharge. 5. FEN - restrict to clears for now; BMP am; cont IVF. 6. lactic acidosis - likely due to GI issues and dehydration - resolved. 7. acute kidney injury - 2nd to significant volume depletion - resolved w/ fluids. Holding lasix for now. 8. DVT proph - SCDs; chemical means contraindicated due to GI bleeding. 9. uncontrolled T2DM - pharmacy is managing. 10. morbid obesity with BMI of 40 11. hypertension - controlled; cont outpatient meds; cont ARB since renal function has normalized. 12. PMR - cont chronic steroid; defer on stress dosing for now. 13. h/o CAD - on aspirin, beta piedad at home. Aspirin on hold for now due to GI bleeding. Uncertain why she is not on statin agent. probably home next 48 hours Continued [facility] stay due to: inadequate po fluid intake, inadequate oral pain control, multiple IV medications needed Discharge planning: home
[2017-11-13] MEDS: INSULIN ASPART 100 UNITS/ML 3 ML PEN SC SCH ×4 (00:17→12:00)
[2017-11-13] MEDS: CLINDAMYCIN IV 600 MG in DEXTROSE 5% 50ML 50 ML IV SCH ×2 (00:20→09:00)
[2017-11-13] MEDS: NSS + 20MEQ KCL 1000ML 1,000 ML IV SCH ×2 (00:20→07:47)
[2017-11-13] MEDS: CEFTRIAXONE SOD INJ 1 GM in DEXTROSE 5% ADD-VANTAGE 50ML 50 ML IV SCH (01:40)
[2017-11-13 05:53] LABS: HEMATOCRIT 31.1 % (37-47); HEMOGLOBIN 9.7 g/dL (12.0-16.0); MEAN CELL VOLUME 78.5 fL (80-100); MEAN CORPUSCULAR HEMOGLOBIN 24.5 pg (25-34); MEAN CORPUSCULAR HGB CONC 31.2 g/dl (32-36); MEAN PLATELET VOLUME 10.7 fL (7.4-10.4); PLATELET COUNT 333 K/uL (130-400); RED CELL DISTRIBUTION WIDTH SD 45.7 fL (36.4-46.3)
[2017-11-13 06:21] LABS: CALCIUM 8.3 mg/dl (8.5-10.1); CREATININE 0.84 mg/dl (0.60-1.20); POTASSIUM 3.8 mmol/L (3.5-5.1)
[2017-11-13 07:02] VITALS: BP 142/79; PULSE 62; TEMP 36.8; O2SAT 94
--- NOTE | 2017-11-13 07:55 | Pharmacy Progress Note ---
Glycemic Control Progress Note Date of Service Nov 13, 2017. Scope Glycemic Pharmacist consulted for glycemic control to write orders per [facility] inpatient glycemic control protocol. Objective Accuchecks BSG (last 24hrs): Test 11/12/17 08:09 11/12/17 11:48 11/12/17 17:36 11/12/17 20:07 Bedside Glucose 212 mg/dl (70-90) 352 mg/dl (70-90) 255 mg/dl (70-90) 294 mg/dl (70-90) Test 11/12/17 23:54 11/13/17 03:45 11/13/17 05:04 Bedside Glucose 223 mg/dl (70-90) 321 mg/dl (70-90) Random Glucose 254 mg/dl (70-99) HbA1c: Test 11/12/17 05:30 Hemoglobin A1c 10.2 % (4.5-5.6) H Recent Pertinent Medications Outpatient Anti-diabetic Regimen: * Novolin 70/30- 100 units QAM; 85 units QPM; Metformin 1g PO BID * A1c = 10.2 % 11/12/17 The patient is currently receiving: * Basal insulin: NPH 80 units every 12 hours * Correctional Insulin: Novolog Correction per scale ACHS Goal Range: Low 110 mg/dL - High 150 mg/dL Correction Factor: 8 mg/dL/unit * Prandial insulin: Per carb ratio of 1 unit per 2 grams CHO consumed * Oral Agents: On HOLD Risk Factors for Insulin Resistance: * Infection: Clindamycin, Rocephin * Diet: Type 2 DM; Pt snacking in the middle of the night without Novolog carbohydrate coverage Outpatient Anti-Diabetic Meds Novolin 70/30 100 units SQ QAM; 85 units SQ QPM Metformin 1g PO BID Assessment & Plan ASSESSMENT: 11/13/17 * Blood sugars remain high despite tightening CR and CF, also d/t pt eating snacks last night as reported by RN * Will increase NPH at this time, with understanding that we will not have tight control with patient having CHO consumption without Novolog * Continue overnight accuchecks for patient's noncompliance and continued hyperglycemia 11/12/17 * 72 year old uncontrolled type 2 diabetic admitted with GI bleeding, diarrhea, started on antibiotics. * Hyperglycemic on admission (290mg/dl), and started on NPH for basal since patient is on mixed insulin at home, for better transition back to home medications upon discharge * NPH increase already this morning for continued BSGs in the 200s, will continue with this regimen and adjust as needed, BSG down to 212mg/dl. * Will hold oral agent (metformin) for admission and utilize SQ basal bolus insulin regimen which is the recommended regimen for inpatient glycemic control. PLAN FOR INPATIENT GLYCEMIC CONTROL: * Holding outpatient oral diabetes medications * INCREASE: Basal insulin with NPH - 110 units SQ BID * Correctional Insulin with NOVOLOG per scale ACHS or Q6hrs while NPO & at 0000 and 0400 * Goal Range: Low 110 mg/dL - High 150 mg/dL * Correction Factor: 8 mg/dL/unit * Nutritional / Prandial insulin per carb ratio of 1 unit per 2 grams CHO consumed * Please note that the plan above was derived based on current level of insulin resistance and hospital stress. These recommendations are appropriate for inpatient admission only. Plan of care upon discharge will need to be reassessed to avoid potential outpatient hypo/hyperglycemia. Thank you.
[2017-11-13] MEDS ORDERED: INSULIN HUMAN NPH SC SCH (08:30)
[2017-11-13] MEDS: LOSARTAN POTASSIUM 50 MG TAB PO SCH (09:50)
[2017-11-13] MEDS: PANTOprazole SOD 40 MG TAB PO SCH (09:50)
[2017-11-13] MEDS: SACCHAROMYCES BOUL (FLORASTOR) 250 MG CAP PO SCH (09:51)
[2017-11-13] MEDS: MAGNESIUM OXIDE 400 MG TAB PO SCH (09:51)
[2017-11-13] MEDS: METHYLPREDNISOLONE 4 MG TAB PO SCH (09:51)
[2017-11-13] MEDS: ALLOPURINOL 100 MG TAB PO SCH (09:52)
[2017-11-13] MEDS: AMLODIPINE BESYLATE 5 MG TAB PO SCH (09:52)
[2017-11-13] MEDS ORDERED: IRON SUCROSE INJ 100 MG in SODIUM CHLORIDE 0.9% 100ML 100 ML IV ONE (10:00)
[2017-11-13] MEDS ORDERED: NURSING VERBAL MED ORDER ONE (12:15)
[2017-11-13] MEDS ORDERED: AMOXICILLIN/CLAVULANATE TAB 875 MG TAB PO ONE (12:30)
[2017-11-13] MEDS ORDERED: METH2.5T PO (12:47)
[2017-11-13] MEDS ORDERED: FRRS300 PO (12:47)
[2017-11-13] MEDS ORDERED: CLC100 PO (12:47)
[2017-11-13] MEDS ORDERED: AMOX875T PO (12:47)
[2017-11-13] MEDS ORDERED: INSU70IN2 SC (12:53)
--- NOTE | 2017-11-13 12:54 | Discharge Instructions ---
Discharge Instructions Date of Service Nov 13, 2017. Admission Reason for Admission: GI bleeding Discharge Discharge Diagnosis / Problem: GI bleeding, acute diverticulitis Discharge Goals Goal(s): Improve disease control, Diagnostic testing, Therapeutic intervention Activity Recommendations Activity Limitations: resume your previous activity Shower/Bathe: no limitations . Instructions / Follow-Up Instructions / Follow-Up You were admitted with likely lower GI bleeding and diarrhea from diverticulosis and overflow diarrhea, respectively. You were also found to have acute diverticulitis of the sigmoid colon and should finish out the rest of a course of antibiotics with Augmentin twice a day. Because of your history of recurrent diverticulitis, and known narrowing of the colon, GI thinks that you should see a general surgeon to discuss possible removal of a portion of your colon to help prevent future occurrence. You should hold your methotrexate until your infection is cleared up. Your bleeding has stopped. It is safe to resume your baby aspirin a day, but stop it please if you have recurrent bleeding. You were found to be severely iron deficient which is likely from your gastrointestinal bleeding. Please take iron tablets twice a day along with a stool softener to restore your iron levels. If you cannot tolerate this, ask your family doctor about a referral for IV iron infusions. Your diabetes is uncontrolled. Your hemoglobin A1c was very high at 10%. It is recommended that you increase your insulin to 110 units twice a day. Please follow-up with your family doctor within 1-2 weeks. Current Hospital Diet Patient's current hospital diet: Diabetes Type 2 Diet, Low Fiber Diet Discharge Diet Recommended Diet: Diabetes Type 2 Diet, Low Fiber Diet Procedures Procedures Performed: CT abdomen/pelvis Pending Studies Studies pending at discharge: no Laboratory Results Last 24 Hours Test 11/12/17 17:36 11/12/17 20:07 11/12/17 23:54 11/13/17 03:45 Bedside Glucose 255 mg/dl 294 mg/dl 223 mg/dl 321 mg/dl Test 11/13/17 05:04 11/13/17 08:07 11/13/17 12:19 White Blood Count 10.00 K/uL Red Blood Count 3.96 M/uL Hemoglobin 9.7 g/dL Hematocrit 31.1 % Mean Corpuscular Volume 78.5 fL Mean Corpuscular Hemoglobin 24.5 pg Mean Corpuscular Hemoglobin Concent 31.2 g/dl RDW Standard Deviation 45.7 fL RDW Coefficient of Variation 16.0 % Platelet Count 333 K/uL Mean Platelet Volume 10.7 fL Sodium Level 138 mmol/L Potassium Level 3.8 mmol/L Chloride Level 105 mmol/L Carbon Dioxide Level 28 mmol/L Anion Gap 5.0 mmol/L Blood Urea Nitrogen 9 mg/dl Creatinine 0.84 mg/dl Est Creatinine Clear Calc Drug Dose 76.3 ml/min Estimated GFR () 80.5 Estimated GFR (Non- 69.4 BUN/Creatinine Ratio 10.9 Random Glucose 254 mg/dl Calcium Level 8.3 mg/dl Iron Level 28 mcg/dl Transferrin 326 mg/dl Transferrin % Saturation 6 % Ferritin 13.6 ng/ml Bedside Glucose 211 mg/dl 186 mg/dl Hemoglobin A1c Test 11/12/17 05:30 Range/Units Estimated Average Glucose 246 mg/dl Hemoglobin A1c 10.2 H 4.5-5.6 % Medical Emergencies . Who to Call and When: Medical Emergencies: If at any time you feel your situation is an emergency, please call 911 immediately. . Non-Emergent Contact Non-Emergency issues call your: Primary Care Provider Call Non-Emergent contact if: you have a fever, temperature is above 100.5, your pain is not controlled, your pain is worsening, your pain is unusual for you, you have any medication questions . . "Provider Documentation" section prepared by Ginna Huynh. .
--- NOTE | 2017-11-13 13:00 | Discharge Summary ---
Discharge Summary Date of Service Nov 13, 2017. Discharge Summary Admission Date: Nov 11, 2017 at 22:33 Discharge Date: Nov 13, 2017 Discharge Disposition: Home Principal Diagnosis: Lower GI bleeding, acute sigmoid diverticulitis Problems/Secondary Diagnoses: Microcytic acute on chronic iron deficiency anemia 1. sigmoid diverticulitis - cut diet back to clear liquids. Continue IV abx ( ceftriaxone, clindamycin -- these were chosen due to numerous allergies). Cont IVF and pain control. Appreciate GI consultation. In light of severe sigmoid disease and recurrent episodes of diverticulitis she should consult with colorectal surgery as an outpatient to discuss elective surgery in the future. GI suggested that repeat colonoscopy in the next 2 months is not necessary at this time. 2. chronic GI bleeding x 4+ weeks - bright red blood per rectum - likely due to severe diverticulosis. Has resulting microcytic anemia. There had been discussion about an outpatient capsule endoscopy - GI recommending deferring this until #1 has resolved. 3. diarrhea - extensive infectious w/u (stool cx, c. diff, giardia, o/p, etc) all negative. GI feels this is likely overflow stooling in the setting of lumen narrowing from a potential diverticular stricture. Surgery consult after d/c has been suggested. 4. microcytic anemia - most certainly iron deficiency anemia. Check iron studies to confirm but likely she has such. Consider IV iron (can't tolerate PO iron) prior to discharge. 5. FEN - restrict to clears for now; BMP am; cont IVF. 6. lactic acidosis - likely due to GI issues and dehydration - resolved. 7. acute kidney injury - 2nd to significant volume depletion - resolved w/ fluids. Holding lasix for now. 8. DVT proph - SCDs; chemical means contraindicated due to GI bleeding. 9. uncontrolled T2DM - pharmacy is managing. 10. morbid obesity with BMI of 40 11. hypertension - controlled; cont outpatient meds; cont ARB since renal function has normalized. 12. PMR - cont chronic steroid; defer on stress dosing for now. 13. h/o CAD - on aspirin, beta piedad at home. Aspirin on hold for now due to GI bleeding. Uncertain why she is not on statin agent. Immunizations: Have You Had Influenza Vaccine: No History of Tetanus Vaccine?: Yes History of Pneumococcal: 2nd dose due 2012 Pneumococcal Date: Aug 01, 2006 History of Hepatitis B Vaccine: No Procedures: CT abdomen/pelvis Consultations: Gastroenterology Medication Reconciliation New Medications: Amoxicillin & Pot Clavulanate (Augmentin 875-125 mg) 1 Tab Tab 875 MG PO BID, #16 TAB Docusate Sodium (Docusate Sodium) 100 Mg Cap 100 MG PO BID for 30 Days, #60 CAP OTC Ferrous Sulfate (Ferrous Sulfate) 325 Mg Tab 325 MG PO BID for 30 Days, #60 TAB OTC Changed Medications: Insulin Isophan/Regular (Novolin 70/30) Susp 100 UNITS SC BIDM for 30 Days (Changed from: QAM) Methotrexate (Methotrexate) 2.5 Mg Tab 2.5 MG PO 3XWK for 30 Days (Medication details modified) HOLD UNTIL AFTER YOUR DIVERTICULITIS TREATMENT IS RESOLVED Continued Medications: Allopurinol (Zyloprim) 100 Mg Tab 100 MG PO DAILY, TAB Amlodipine Besylate (Amlodipine Besylate) 5 Mg Tab 10 MG PO QAM for 14 Days, #28 TAB Aspirin (Aspirin 81) 81 Mg Tab 81 MG PO DAILY Atenolol (Atenolol) 50 Mg Tab 50 MG PO QAM Atenolol (Atenolol) 50 Mg Tab 25 MG PO QPM Diclofenac Sod (Voltaren) 100 Appln/100 Gm Gel 1 APPLN EXT HS for 30 Days, #1 TUBE Folic Acid (Folic Acid) 1 Mg Tab 1 MG PO DAILY Furosemide (Lasix) 20 Mg Tab 20 MG PO DAILY PRN for swelling, TAB Gabapentin (Neurontin) 300 Mg Cap 300 MG PO TID, CAP Losartan Potassium (Cozaar) 100 Mg Tab 100 MG PO DAILY, TAB Magnesium Oxide (Mag-Ox) 400 Mg Tab 400 MG PO BID, TAB Metformin Hcl (Glucophage) 1,000 Mg Tab 1000 MG PO BID, TAB Methylprednisolone (Medrol) 4 Mg Tab 1 MG PO DAILY, TAB Pantoprazole (Protonix) 40 Mg Tab 40 MG PO BID, #30 TAB Potassium Citrate (Alkalinizer (Potassium Citrate) 540 Mg Tab 540 MG PO BID Discontinued Medications: Insulin Isophan/Regular (Novolin 70/30) Susp 85 UNITS SC QPM Discharge Exam Patient doing very well the day of discharge. She had no abdominal pain at all , had 6 well formed bowel movements this morning without any blood at all. She remains afebrile. She is very anxious for discharge. She has been tolerating a diet until was changed to clears diet yesterday, but reports she can eat just fine and is eating low fiber diet for lunch today. No nausea or vomiting. She is interested in possible colectomy for recurrent diverticulitis. Review of Systems: Constitutional: No fever, No chills Eyes: No problem reported ENT: No problem reported Respiratory: No shortness of breath Cardiovascular: No chest pain Abdomen: No pain, No nausea, No vomiting, No diarrhea, No constipation, No GI bleeding Musculoskeletal: No problem reported Genitourinary - Female: No problem reported Neurologic: No problem reported Psychiatric: No problem reported Endocrine: No problem reported Hematologic / Lymphatic: No problem reported Integumentary: No problem reported Physical Exam: General Appearance: WD/WN, no apparent distress, + obese Eyes: normal inspection, EOMI, sclerae normal ENT: hearing grossly normal, pharynx normal Neck: trachea midline Respiratory/Chest: lungs clear, normal breath sounds, no respiratory distress, no accessory muscle use Cardiovascular: regular rate, rhythm, no edema, no gallop, no murmur, normal peripheral pulses Abdomen / GI: normal bowel sounds, non tender, soft, no organomegaly (And obese) Extremities: no calf tenderness, no pedal edema Neurologic/Psychiatric: alert, normal mood/affect, oriented x 3 Skin: normal color, warm/dry, no rash Hospital Course Patient is a 72yo C female with multiple medical problems presenting with 3 weeks of loose stools and bright red blood per rectum. She reports 10-12 loose bowel movements per day with bright red blood mixed in. This occurs with every bowel movement. She states that her bowel movements typically occur from 5AM to 4PM daily then they resolve in the evening. She does report episodes of loose stools throughout the night as well. She has bandlike lower abdominal pain and pressure that is relieved with bowel movement. Reports that this pain is different from her typical diverticular pain and has been acutely worsening over the last week. Bowel movements are not related to dietary intake. She denies rectal pain, denies fecal incontinence, denies sick contacts. Endorses tenesmus. Patient reportedly had an EGD and Colonoscopy performed January 2017 that was unrevealing. She is in the process of scheduling a capsule endoscopy. 1. sigmoid diverticulitis - cut diet back to clear liquids. Continue IV abx ( ceftriaxone, clindamycin -- these were chosen due to numerous allergies). Cont IVF and pain control. Appreciate GI consultation. In light of severe sigmoid disease and recurrent episodes of diverticulitis she should consult with colorectal surgery as an outpatient to discuss elective surgery in the future. GI suggested that repeat colonoscopy in the next 2 months is not necessary at this time. 2. chronic GI bleeding x 4+ weeks - bright red blood per rectum - likely due to severe diverticulosis. Has resulting microcytic anemia. There had been discussion about an outpatient capsule endoscopy - GI recommending deferring this until #1 has resolved. 3. diarrhea - extensive infectious w/u (stool cx, c. diff, giardia, o/p, etc) all negative. GI feels this is likely overflow stooling in the setting of lumen narrowing from a potential diverticular stricture. Surgery consult after d/c has been suggested. 4. microcytic anemia - most certainly iron deficiency anemia. Check iron studies to confirm but likely she has such. Consider IV iron (can't tolerate PO iron) prior to discharge. 5. FEN - restrict to clears for now; BMP am; cont IVF. 6. lactic acidosis - likely due to GI issues and dehydration - resolved. 7. acute kidney injury - 2nd to significant volume depletion - resolved w/ fluids. Holding lasix for now. 8. DVT proph - SCDs; chemical means contraindicated due to GI bleeding. 9. uncontrolled T2DM - pharmacy is managing. 10. morbid obesity with BMI of 40 11. hypertension - controlled; cont outpatient meds; cont ARB since renal function has normalized. 12. PMR - cont chronic steroid; defer on stress dosing for now. 13. h/o CAD - on aspirin, beta piedad at home. Aspirin on hold for now due to GI bleeding. Uncertain why she is not on statin agent. Total Time Spent: Greater than 30 minutes This includes examination of the patient, discharge planning, medication reconciliation, and communication with other providers. Discharge Instructions Please refer to the electronic Patient Visit Report (Discharge Instructions) for additional information. Follow-Up With PCP within 1-2 weeks Recommend general surgery outpatient referral to discuss possible colectomy for recurrent diverticulitis. Additional Copies To Lucila Rojas M.D.
[2017-11-13 13:47] VITALS: BP 142/79; PULSE 62; TEMP 36.8; O2SAT 94
== END 2017-11-13 14:15 | disposition home or self-care (01) | DRG 378 ==
LOC: C.EDB 17:19 → C.MSN 22:33 → EDBEDREQ 23:11 → ENRESERV 23:17
PROVIDERS: ADMIT Internal Medicine; ATTEND Family Medicine
DX: K57.93 Diverticulitis of intestine, part unspecified, without perforation or abscess with bleeding (principal); N17.9 Acute kidney failure, unspecified; E87.2 Acidosis; Z68.41 Body mass index [BMI] 40.0-44.9, adult; I25.10 Atherosclerotic heart disease of native coronary artery without angina pectoris; E11.9 Type 2 diabetes mellitus without complications; K21.9 Gastro-esophageal reflux disease without esophagitis; I10 Essential (primary) hypertension; D64.9 Anemia, unspecified; M35.3 Polymyalgia rheumatica; E66.01 Morbid (severe) obesity due to excess calories; Z86.73 Personal history of transient ischemic attack (TIA), and cerebral infarction without residual deficits; Z79.82 Long term (current) use of aspirin; Z79.4 Long term (current) use of insulin; Z88.2 Allergy status to sulfonamides; Z88.1 Allergy status to other antibiotic agents; Z80.9 Family history of malignant neoplasm, unspecified; Z82.49 Family history of ischemic heart disease and other diseases of the circulatory system; Z83.3 Family history of diabetes mellitus

== ENCOUNTER → 2017-12-04 | Outpatient (CLI) | payer OTHER ==
[~2017-12-04] MED LIST changes: +CLC100 PO; +FLV1 PO; +FRRS300 PO; -INSU1INJ2 SQ; +INSU70IN2 SC; +METH2.5T PO; -POTA1080 PO; +POTA540T PO
--- NOTE | 2017-12-07 15:08 | MAMMOGRAPHY REPORT ---
BILATERAL DIGITAL SCREENING MAMMOGRAM TOMOSYNTHESIS WITH CAD: 12/04/2017 CLINICAL HISTORY: Routine screening. Patient has no complaints. TECHNIQUE: Breast tomosynthesis in addition to standard 2D mammography was performed. Current study was also evaluated with a Computer Aided Detection (CAD) system. COMPARISON: Comparison is made to exams dated: 11/10/2016 mammogram, 12/20/2015 mammogram, 12/07/2014 ma mmogram, 12/06/2013 mammogram, 11/29/2012 mammogram, and 06/07/2012 mammogram - [facility] enter. BREAST COMPOSITION: There are scattered areas of fibroglandular density in both breasts. FINDINGS: No suspicious masses, calcifications, or areas of architectural distortion are noted in ei ther breast. There has been no significant interval change compared to prior exams. Again noted are post surgical changes in the right superior breast including multiple surgical clips, density, and co arse dystrophic calcifications noted at the surgical bed. Small bilateral circumscribed benign-appea ring masses are stable compared to prior exams. Other scattered bilateral benign-appearing calcifica tions are stable. IMPRESSION: ACR BI-RADS CATEGORY 2: BENIGN There is no mammographic evidence of malignancy. A 1 year screening mammogram is recommended. The pa tient will receive written notification of the results. Approximately 10% of breast cancers are not detected with mammography. A negative mammographic report should not delay biopsy if a clinically suggestive mass is present. Zulay Smith M.D. /:12/04/2017 17:23:23 Contact Lens Polisher: Caitlin ORTEGA(Pedrito)(M), [facility] letter sent: Normal 1/2 BI-RADS Code: ACR BI-RADS Category 2: Benign
== END | disposition home or self-care (01) ==
LOC: C.MAMM 11:44
PROVIDERS: ATTEND Internal Medicine
DX: Z12.31 Encounter for screening mammogram for malignant neoplasm of breast (principal); Z85.3 Personal history of malignant neoplasm of breast

== ENCOUNTER 2018-02-28 01:31 | Inpatient (IN) | payer OTHER ==
[2018-02-28] VITALS (18 sets, daily range): BP systolic 114–175; BP diastolic 61–80; PULSE 61–74; TEMP 36.1–37; O2SAT 91–95; Ht 167.6 cm; Wt 107.6 kg
[~2018-02-28] VITALS: Ht 167.6 cm; Wt 107.6 kg
[2018-02-28] MEDS ORDERED: ALBUT/IPRATROP 3MG/0.5MG NEB 3 ML VIAL INH STA (01:48)
--- NOTE | 2018-02-28 01:50 | EMERGENCY ROOM VISIT NOTE ---
History First contact with patient: 01:42 Chief Complaint: RESPIRATORY PROBLEMS Stated Complaint: BREATHING ISSUES,WEAKNESS Nursing Triage Summary: SOB over the last several weeks, numbness in bilateral hands History of Present Illness The patient is a 72 year old female who presents to the Emergency Room for evaluation of shortness of breath. Patient with 3 to 4 weeks worsening shortness of breath. Notes worse with exertion. Gradually worsening. Worse last few days. Tonight with chest pressure/heaviness. Associated mild nausea and periodic palpitations. No cough, fevers, vomiting, leg swelling. No symptoms like this previous. Rest makes better. History of Schogren's though denies recent/current steroids use. Denies any previous work-up for this issue. No history DVT/PE, no travel recently, no surgery recently, no family history DVT/PE. Has tried no medications for this. Does not smoke. No history of Asthma, COPD, Lung disease. Admits chronic rectal bleeding for which she follows with primary and GI. Previous required IV iron transfusions. Review of Systems See HPI for pertinent positives & negatives. A total of 10 systems reviewed and were otherwise negative. Past Medical/Surgical History Medical Problems: (1) Acute hemorrhage (2) Delaney's Palsy (3) Cholelithiasis Nos (4) Diabetes mellitus (5) Diverticulitis Colon (W/O Ment Of Hemorrhage) (6) DM (diabetes mellitus) type II controlled, neurological manifestation (7) Esophageal Reflux (8) GIB (gastrointestinal bleeding) (9) HTN (hypertension) (10) Hyperglycemia (11) Hypertension Nos (12) Lower GI bleed (13) Numbness and tingling of right face (14) PMR (polymyalgia rheumatica) (15) Protruded lumbar disc (16) Renal calculus, right (17) TIA (transient ischemic attack) (18) Umbilical Hernia (19) Uncontrolled hypertension Surgical Problems: (1) History of appendectomy Family History Cancer Diabetes mellitus Gallbladder disease Hypertension Lung disease Social History Smoking Status: Never Smoker Alcohol Use: none Drug Use: none Marital Status: Occupation Status: employed Current/Historical Medications Scheduled Aspirin (Aspirin 81), 81 MG PO DAILY Atenolol (Atenolol), 50 MG PO AMPM Empagliflozin (Jardiance), 10 MG PO DAILY Insulin Isophan/Regular (Novolin 70/30), 100 UNITS SC BIDM Losartan Potassium (Cozaar), 100 MG PO DAILY Metformin Hcl (Glucophage), 1,000 MG PO BID Pantoprazole (Protonix), 40 MG PO BID Potassium Citrate (Alkalinizer (Potassium Citrate), 540 MG PO BID Physical Exam Vital Signs Date Time Temp Pulse Resp B/P (MAP) Pulse Ox O2 Delivery O2 Flow Rate FiO2 02/28/18 03:11 69 20 185/65 94 Room Air 02/28/18 01:58 67 02/28/18 01:34 36.7 78 16 175/87 96 Room Air Physical Exam GENERAL: Patient is anxious appearing and in no acute distress. EYES: No scleral icterus, unremarkable pupils. ENT: Mucous membranes moist, no nasal congestion. NECK: No masses appreciated, no meningismus, trachea is midline. RESPIRATORY: No dyspnea. Clear to auscultation and equal bilaterally. No wheeze , no rhonchi. CARDIOVASCULAR: Irregular. No murmurs, rubs, gallops appreciated. GASTROINTESTINAL: Abdomen soft, nontender, no peritonitis. Bowel sounds positive. No masses appreciated. BACK: No midline tenderness, no CVA tenderness EXTREMITIES: Normal motion all extremities, no cyanosis, no edema. NEUROLOGIC: Alert and oriented, no acute motor or sensory deficits, no focal weakness, cranial nerves grossly intact. SKIN: No rash, no jaundice, no diaphoresis. Medical Decision & Procedures ER Provider Diagnostic Interpretation: X ray results are stated below per my interpretation: Chest: 1 view: Enlarged cardiac border similar to previous. Scarring vs congestive changes throughout. No infiltrate, no effusion, no pneumothorax. Laboratory Results 02/28/18 01:55 Red Blood Count 4.00, Mean Corpuscular Volume 72.3, Mean Corpuscular Hemoglobin 20.3, Mean Corpuscular Hemoglobin Concent 28.0, Mean Platelet Volume 10.1, Neutrophils (%) (Auto) 65.1, Lymphocytes (%) (Auto) 20.6, Monocytes (%) (Auto) 7.3, Eosinophils (%) (Auto) 5.6, Basophils (%) (Auto) 0.3, Neutrophils # (Auto) 7.29, Lymphocytes # (Auto) 2.30, Monocytes # (Auto) 0.81, Eosinophils # (Auto) 0.62, Basophils # (Auto) 0.03 02/28/18 01:55 Test 02/28/18 01:55 White Blood Count 11.17 K/uL (4.8-10.8) Red Blood Count 4.00 M/uL (4.2-5.4) Hemoglobin 8.1 g/dL (12.0-16.0) Hematocrit 28.9 % (37-47) Mean Corpuscular Volume 72.3 fL (80-100) Mean Corpuscular Hemoglobin 20.3 pg (25-34) Mean Corpuscular Hemoglobin Concent 28.0 g/dl (32-36) Platelet Count 374 K/uL (130-400) Mean Platelet Volume 10.1 fL (7.4-10.4) Neutrophils (%) (Auto) 65.1 % Lymphocytes (%) (Auto) 20.6 % Monocytes (%) (Auto) 7.3 % Eosinophils (%) (Auto) 5.6 % Basophils (%) (Auto) 0.3 % Neutrophils # (Auto) 7.29 K/uL (1.4-6.5) Lymphocytes # (Auto) 2.30 K/uL (1.2-3.4) Monocytes # (Auto) 0.81 K/uL (0.11-0.59) Eosinophils # (Auto) 0.62 K/uL (0-0.5) Basophils # (Auto) 0.03 K/uL (0-0.2) RDW Standard Deviation 45.7 fL (36.4-46.3) RDW Coefficient of Variation 17.4 % (11.5-14.5) Immature Granulocyte % (Auto) 1.1 % Immature Granulocyte # (Auto) 0.12 K/uL (0.00-0.02) Nucleated RBC Absolute Count (auto) 0.05 K/uL (0-0) Nucleated Red Blood Cells % 0.5 % Polychromasia 1+ Hypochromasia PRESENT Prothrombin Time 10.2 SECONDS (9.0-12.0) Prothromb Time International Ratio 1.0 (0.9-1.1) Activated Partial Thromboplast Time 24.3 SECONDS (21.0-31.0) Partial Thromboplastin Ratio 0.9 D-Dimer 400 ug/L FEU (0-500) Anion Gap 8.0 mmol/L (3-11) Est Creatinine Clear Calc Drug Dose 72.7 ml/min Estimated GFR () 77.1 Estimated GFR (Non- 66.6 BUN/Creatinine Ratio 16.0 (10-20) Calcium Level 8.6 mg/dl (8.5-10.1) Magnesium Level 2.1 mg/dl (1.8-2.4) Total Iron Binding Capacity 462 mcg/dl (250-450) Transferrin 370 mg/dl (200-360) Ferritin 5.3 ng/ml (8.0-388.0) Total Creatine Kinase 60 U/L (26-192) Creatine Kinase MB 1.1 ng/ml (0.5-3.6) Creatine Kinase MB Ratio 1.8 (0-3.0) Troponin I < 0.015 ng/ml (0-0.045) Thyroid Stimulating Hormone (TSH) 4.290 uIu/ml (0.300-4.500) Medications Administered Medications (Trade) Dose Ordered Sig/Noemi Route Start Time Stop Time Status Last Admin Dose Admin Albuterol/ Ipratropium (Duoneb) 3 ml NOW STAT INH 02/28/18 01:48 02/28/18 01:50 DC 02/28/18 01:48 3 ML Ceftriaxone Sodium (Rocephin Inj) 1 gm NOW STAT IV 02/28/18 03:32 02/28/18 03:33 DC 02/28/18 03:49 1 GM ECG Per My Interpretation Indication: SOB/dyspnea Rate (beats per minute): 72 Rhythm: normal sinus Findings: PAC (Normal QTC 420. ) Medical Decision Differential: Pneumonia, Pneumothorax, COPD, CHF, ACS, Pulmonary Embolism, Anemia, MSK, GI, Dissection, amongst other etiologies entertained. 72 yr old female with shortness of breath for 1 month gradually worsening. Worsening over last few days. No calf pain nor swelling nor other recent DVT/ PE risks. Dimer negative. No improvement with duoneb. CXR without acute findings though likely some chronic scarring/congestion. No evidence of ACS. She does have rectal bleeding and HgB is now to 8 which I suspect is her cause as this is almost 2 g lower than previous levels. She agrees to transfusion. Hospitalist will order and will bring her in for further management. Medication Reconcilliation Current Medication List: was personally reviewed by me Blood Pressure Screening Patient's blood pressure: Elevated blood pressure (Will be monitored by hospitalist) Impression Primary Impression: Anemia Additional Impression: Shortness of breath Departure Information Referrals Lucila Rojas M.D. (PCP) Patient Instructions My [facility] Problem Qualifiers
[2018-02-28 02:34] LABS: HEMATOCRIT 28.9 % (37-47); HEMOGLOBIN 8.1 g/dL (12.0-16.0); MEAN CELL VOLUME 72.3 fL (80-100); MEAN CORPUSCULAR HEMOGLOBIN 20.3 pg (25-34); MEAN PLATELET VOLUME 10.1 fL (7.4-10.4); NUCLEATED RED BLOOD CELL ABS 0.05 K/uL (0-0); PLATELET COUNT 374 K/uL (130-400); PTT PATIENT 24.3 SECONDS (21.0-31.0); RED CELL DISTRIBUTION WIDTH CV 17.4 % (11.5-14.5); RED CELL DISTRIBUTION WIDTH SD 45.7 fL (36.4-46.3); WHITE BLOOD COUNT 11.17 K/uL (4.8-10.8)
[2018-02-28 02:35] LABS: BASO % 0.3 %; BASO ABS # 0.03 K/uL (0-0.2); EOS % 5.6 %; EOS ABS # 0.62 K/uL (0-0.5); IG# 0.12 K/uL (0.00-0.02); LYMPH % 20.6 %; MONO % 7.3 %; MONO ABS # 0.81 K/uL (0.11-0.59); NEUT % 65.1 %; NEUT ABS # 7.29 K/uL (1.4-6.5)
[2018-02-28 02:40] LABS: BLOOD UREA NITROGEN 14 mg/dl (7-18); CALCIUM 8.6 mg/dl (8.5-10.1); CARBON DIOXIDE 25 mmol/L (21-32); CKMB 1.1 ng/ml (0.5-3.6); CREATININE 0.87 mg/dl (0.60-1.20); GLUCOSE 146 mg/dl (70-99); SODIUM 141 mmol/L (136-145)
[2018-02-28] MEDS ORDERED: EMPA1TAB PO (03:21)
[2018-02-28] MEDS ORDERED: INSU70IN2 SC (03:22)
[2018-02-28] MEDS ORDERED: CEFTRIAXONE SOD INJ 1 GM ADDVIAL IV STA (03:32)
[2018-02-28] MEDS ORDERED: ACETAMINOPHEN 325 MG TAB PO PRN (03:45)
[2018-02-28] MEDS ORDERED: ONDANSETRON INJ 2 MG/ML 2 ML VIAL IV PRN (03:45)
[2018-02-28] MEDS ORDERED: CARBOHYDRATES FOR HYPOGLYCEMIA PO PRN (04:15)
[2018-02-28] MEDS ORDERED: DEXTROSE 50% 50 ML SYR IV PRN (04:15)
[2018-02-28] MEDS ORDERED: GLUCOSE 40% GEL 15 GM TUBE PO PRN (04:15)
[2018-02-28] MEDS ORDERED: GLUCOSE 10 TABS/TUBE PO PRN (04:15)
[2018-02-28] MEDS ORDERED: GLUCAGON FOR INJ 1 MG VIAL IM PRN (04:15)
--- NOTE | 2018-02-28 04:16 | History and Physical ---
History & Physical Date & Time of Service: Feb 28, 2018 at 04:04 Chief Complaint: Breathing Issues,Weakness Primary Care Physician: Lucila Rojas M.D. History of Present Illness Source: patient, hospital records The patient is a 72-year-old female with a past medical history of diabetes, hypertension, PMR, and Sjogren's disease that presents with progressive fatigue and acute rectal bleeding. The patient states that over the last month she has become increasingly fatigued and over the last 4 days this has progressed significantly. She states that now she becomes extremely short of breath and has to stop walking after 20 steps. The patient states that she has been having bright red blood from her rectum, although this has been happening chronically. She was admitted for rectal bleeding in October, and has since followed with [facility] who performed a scope and found that the source of her bleeding were internal hemorrhoids. The patient denies any recent abdominal pain, change in bowel habits, bloody bowel movements, or vomiting. The patient has also been complaining of shortness of breath with walking, but denies any cough, chest pain, wheezing, or any other respiratory complaints. Past Medical/Surgical History Medical Problems: (1) Abdominal pain (2) Acute hemorrhage (3) EDIS (acute kidney injury) (4) Anemia (5) Arrhythmia (6) Delaney's Palsy (7) Chest pain (8) Cholelithiasis Nos (9) Diabetes mellitus (10) Diarrhea (11) Diarrhea (12) Diverticulitis (13) Diverticulitis Colon (W/O Ment Of Hemorrhage) (14) DM (diabetes mellitus) type II controlled, neurological manifestation (15) Dyspnea (16) Esophageal Reflux (17) GI bleed (18) GIB (gastrointestinal bleeding) (19) Headache (20) Headache (21) Heart palpitations (22) History of spinal stenosis (23) HTN (hypertension) (24) HTN (hypertension) (25) Hyperglycemia (26) Hypertension (27) Hypertension Nos (28) Low back pain (29) Lower abdominal pain (30) Lower GI bleed (31) Numbness and tingling of right face (32) Numbness and tingling of right face (33) Numbness and tingling of right face (34) Obstructive uropathy (35) Palpitations (36) Paresthesia (37) PMR (polymyalgia rheumatica) (38) Poorly-controlled hypertension (39) Protruded lumbar disc (40) Renal calculus, right (41) SOB (shortness of breath) (42) Substernal precordial chest pain (43) Tachycardia (44) Tachycardia (45) TIA (transient ischemic attack) (46) Umbilical Hernia (47) Uncontrolled hypertension (48) Urinary tract infection (49) Urticaria (50) UTI (urinary tract infection) Surgical Problems: (1) History of appendectomy Family History Cancer Diabetes mellitus Gallbladder disease Hypertension Lung disease Social History Smoking Status: Never Smoker Smokeless Tobacco Use: No Alcohol Use: none Drug Use: none Marital Status: Housing status: lives with family Occupational Status: employed Immunizations History of Influenza Vaccine: No History of Tetanus Vaccine?: Yes History of Pneumococcal: 2nd dose due 2012 Pneumococcal Date: Aug 01, 2006 History of Hepatitis B Vaccine: No Allergies Coded Allergies: Iodinated Diagnostic Agents (Verified Allergy, Severe, ANAPHYLAXIS/ CONVULSIONS, 02/28/18) Sumatriptan (Verified Allergy, Severe, SOB,INCREASED HEARTRATE, 02/28/18) Ciprofloxacin (Verified Allergy, Intermediate, hives, 02/28/18) pt Metronidazole (Verified Allergy, Intermediate, HIVES, 02/28/18) Quinolones (Verified Allergy, Intermediate, HIVES, 02/28/18) Sulfamethoxazole w/Trimethoprim (Verified Allergy, Intermediate, hives, 07/06) pt Adhesives (Verified Adverse Reaction, Severe, SEVERE BURNING BLISTERS, 07/06) Tramadol (Verified Adverse Reaction, Mild, FATIGUE, 02/28/18) Home Medications Scheduled Aspirin (Aspirin 81), 81 MG PO DAILY Atenolol (Atenolol), 50 MG PO AMPM Empagliflozin (Jardiance), 10 MG PO DAILY Insulin Isophan/Regular (Novolin 70/30), 100 UNITS SC BIDM Losartan Potassium (Cozaar), 100 MG PO DAILY Metformin Hcl (Glucophage), 1,000 MG PO BID Pantoprazole (Protonix), 40 MG PO BID Potassium Citrate (Alkalinizer (Potassium Citrate), 540 MG PO BID Review of Systems Constitutional: + weakness, + fatigue, No fever, No chills, No sweats Respiratory: + shortness of breath, No cough, No sputum, No wheezing Cardiovascular: No chest pain, No edema, No palpitations Abdomen: + GI bleeding (rectal bleeding), No pain, No nausea, No vomiting, No diarrhea, No constipation Genitourinary - Female: No dysuria, No urinary frequency Endocrine: + fatigue Integumentary: No rash, No itch Physical Exam Vital Signs Date Time Temp Pulse Resp B/P (MAP) Pulse Ox O2 Delivery O2 Flow Rate FiO2 02/28/18 03:11 69 20 185/65 94 Room Air 02/28/18 01:58 67 02/28/18 01:34 36.7 78 16 175/87 96 Room Air General Appearance: WD/WN, no apparent distress, + obese Head: normocephalic, atraumatic Eyes: normal inspection, sclerae normal Neck: supple, no carotid bruits Respiratory/Chest: chest non-tender, lungs clear, normal breath sounds Cardiovascular: regular rate, rhythm, no edema, no gallop Abdomen/GI: normal bowel sounds, non tender, soft Extremities/Musculoskelatal: normal inspection, no calf tenderness Neurologic/Psych: alert, normal reflexes, oriented x 3 Diagnostics Laboratory Results Results Past 24 Hours Test 02/28/18 01:55 02/28/18 03:55 Range/Units White Blood Count 11.17 4.8-10.8 K/uL Red Blood Count 4.00 4.2-5.4 M/uL Hemoglobin 8.1 12.0-16.0 g/dL Hematocrit 28.9 37-47 % Mean Corpuscular Volume 72.3 80-100 fL Mean Corpuscular Hemoglobin 20.3 25-34 pg Mean Corpuscular Hemoglobin Concent 28.0 32-36 g/dl Platelet Count 374 130-400 K/uL Mean Platelet Volume 10.1 7.4-10.4 fL Neutrophils (%) (Auto) 65.1 % Lymphocytes (%) (Auto) 20.6 % Monocytes (%) (Auto) 7.3 % Eosinophils (%) (Auto) 5.6 % Basophils (%) (Auto) 0.3 % Neutrophils # (Auto) 7.29 1.4-6.5 K/uL Lymphocytes # (Auto) 2.30 1.2-3.4 K/uL Monocytes # (Auto) 0.81 0.11-0.59 K/uL Eosinophils # (Auto) 0.62 0-0.5 K/uL Basophils # (Auto) 0.03 0-0.2 K/uL RDW Standard Deviation 45.7 36.4-46.3 fL RDW Coefficient of Variation 17.4 11.5-14.5 % Immature Granulocyte % (Auto) 1.1 % Immature Granulocyte # (Auto) 0.12 0.00-0.02 K/uL Nucleated RBC Absolute Count (auto) 0.05 0-0 K/uL Nucleated Red Blood Cells % 0.5 % Polychromasia 1+ Hypochromasia PRESENT Prothrombin Time 10.2 9.0-12.0 SECONDS Prothromb Time International Ratio 1.0 0.9-1.1 Activated Partial Thromboplast Time 24.3 21.0-31.0 SECONDS Partial Thromboplastin Ratio 0.9 D-Dimer 400 0-500 ug/L FEU Sodium Level 141 136-145 mmol/L Potassium Level 4.0 3.5-5.1 mmol/L Chloride Level 108 98-107 mmol/L Carbon Dioxide Level 25 21-32 mmol/L Anion Gap 8.0 3-11 mmol/L Blood Urea Nitrogen 14 7-18 mg/dl Creatinine 0.87 0.60-1.20 mg/dl Est Creatinine Clear Calc Drug Dose 72.7 ml/min Estimated GFR () 77.1 Estimated GFR (Non- 66.6 BUN/Creatinine Ratio 16.0 10-20 Random Glucose 146 70-99 mg/dl Calcium Level 8.6 8.5-10.1 mg/dl Magnesium Level 2.1 1.8-2.4 mg/dl Total Creatine Kinase 60 26-192 U/L Creatine Kinase MB 1.1 0.5-3.6 ng/ml Creatine Kinase MB Ratio 1.8 0-3.0 Troponin I < 0.015 0-0.045 ng/ml Thyroid Stimulating Hormone (TSH) 4.290 0.300-4.500 uIu/ml Transferrin % Saturation 15-50 % Impression Assessment and Plan The patient is a 72-year-old female with a past medical history of diabetes, hypertension, PMR, and Sjogren's disease that presents with progressive fatigue and acute rectal bleeding. Acute Hemorrhage 2/2 Rectal Bleeding - Hgb of 8.1 (Baseline of 10) with acute rectal bleeding and subjective fatigue and weakness - Transfuse 2 units of PRBC - AM CBC with diff - Iron Studies --> Ferritin, TIBC, Transferring, % Saturation - Admit to Telemetry Shortness of Breath - CXR: No appearance of infiltrate on CXR base on our read - D-Dimer negative, patient has history of allergy to contrast - Satting 96% on RA - Given Duoneb treatment in ED with no improvement Diabetes - Regular Insulin 70/30 100 Units BID - BSG AC/HS - Hold home oral hypoglycemic agents HTN - Continue home Losartan and Atenolol GERD - Continue home Protonix DVT - Heparin Code Status - Full Resuscitation Attending addendum: I have physically seen this patient, have supervised the medical residents activities, and agree with the H&P unless as otherwise noted. Assessment and Plan: Acute hemorrhage with rectal bleeding/symptomatic anemia-- Transfuse 2 units PRBCs. H&H every 6 hours Check iron, TIBC, ferritin, vitamin B12, folic acid and reticulocyte count. Shortness of breath-- Likely in large part secondary to declining hemoglobin. Follow breathing with increased in hemoglobin after transfusion. Diabetes mellitus-- Continue usual dose of insulin [address] Accu-Cheks before meals and at bedtime with NovoLog coverage per scale. Hypertension-- Continue losartan and atenolol with hold parameters. GERD-- Continue Protonix. Remainder of orders and notations as above. Advanced Directives Existing Advance Directive: No Existing Living Will: No Existing Power of Recycler: No Resuscitation Status Full Code VTE Prophylaxis Will order VTE Prophylaxis: Yes Social Service Consult None Apply Resident Tracking Resident Involvement: Resident Care Provided Care Provided: Adult Hospital Medicine
[2018-02-28 04:22] LABS: TRANSFERRIN 370 mg/dl (200-360)
--- NOTE | 2018-02-28 07:32 | DIAGNOSTIC IMAGING REPORT ---
CHEST ONE VIEW PORTABLE CLINICAL HISTORY: Chest pain. COMPARISON STUDY: Chest CT May 13, 2017. FINDINGS: There is no pneumothorax or pleural effusion. Calcifications within the right breast are incidentally noted. Mild elevation of the right hemidiaphragm is unchanged. Cardiomediastinal silhouette is stable. Linear left midlung opacity suggest atelectasis. There is no consolidation to suggest pneumonia. The appearance of the chest is unchanged. IMPRESSION: No acute cardiopulmonary findings. No change in appearance of the chest. Electronically signed by: Jayy Rojas M.D. 02/28/2018 7:31 AM Dictated Date/Time: 02/28/2018 7:29 AM
--- NOTE | 2018-02-28 08:41 | Progress Note ---
Subjective Date of Service: Feb 28, 2018. Subjective pt still feels symptomatic after one unit PRBC, repeat Check shows hgb 8.7, so without appropriate rise in hgb will continue to second unit of blood Problem List Medical Problems: (1) Abdominal pain Status: Acute (2) EDIS (acute kidney injury) Status: Acute (3) Anemia Status: Acute (4) Anemia Status: Acute (5) Diarrhea Status: Acute (6) Diarrhea Status: Acute (7) Diverticulitis Status: Acute (8) Dyspnea Status: Acute (9) GI bleed Status: Acute (10) Heart palpitations Status: Acute (11) Hypertension Status: Acute (12) Lower abdominal pain Status: Acute (13) Obstructive uropathy Status: Acute (14) Poorly-controlled hypertension Status: Acute (15) Shortness of breath Status: Acute (16) Substernal precordial chest pain Status: Acute (17) UTI (urinary tract infection) Status: Acute Review of Systems Constitutional: + weakness, + fatigue, No fever, No chills Respiratory: + dyspnea on exertion, No shortness of breath Cardiac: + palpitations, No chest pain, No edema Abdomen: No pain, No nausea, No vomiting, No diarrhea Neurologic: No memory loss, No weakness Psychiatric: No depression symptoms, No anxiety Heme: + abnormal bleeding/bruising (rectal) Skin: No rash, No itch Objective Vital Signs Date Time Temp Pulse Resp B/P (MAP) Pulse Ox O2 Delivery O2 Flow Rate FiO2 02/28/18 06:40 36.6 65 16 132/72 91 02/28/18 06:28 37.0 66 20 114/69 92 02/28/18 04:42 36.7 70 18 168/69 94 Room Air 02/28/18 04:24 68 18 161/76 95 Room Air 02/28/18 03:11 69 20 185/65 94 Room Air 02/28/18 01:58 67 02/28/18 01:34 36.7 78 16 175/87 96 Room Air Physical Exam General Appearance: WD/WN, + mild distress Eyes: normal inspection, PERRL, EOMI, sclerae normal Neck: supple, no JVD Respiratory/Chest: chest non-tender, lungs clear, normal breath sounds Cardiovascular: regular rate, rhythm, no murmur Abdomen: normal bowel sounds, non tender, soft Extremities: no pedal edema, no calf tenderness Neurologic/Psychiatric: alert, oriented x 3 Skin: normal color, warm/dry Laboratory Results Last 24 Hours Test 02/28/18 01:55 02/28/18 03:55 02/28/18 07:29 02/28/18 08:00 White Blood Count 11.17 K/uL Red Blood Count 4.00 M/uL Hemoglobin 8.1 g/dL Hematocrit 28.9 % Mean Corpuscular Volume 72.3 fL Mean Corpuscular Hemoglobin 20.3 pg Mean Corpuscular Hemoglobin Concent 28.0 g/dl Platelet Count 374 K/uL Mean Platelet Volume 10.1 fL Neutrophils (%) (Auto) 65.1 % Lymphocytes (%) (Auto) 20.6 % Monocytes (%) (Auto) 7.3 % Eosinophils (%) (Auto) 5.6 % Basophils (%) (Auto) 0.3 % Neutrophils # (Auto) 7.29 K/uL Lymphocytes # (Auto) 2.30 K/uL Monocytes # (Auto) 0.81 K/uL Eosinophils # (Auto) 0.62 K/uL Basophils # (Auto) 0.03 K/uL RDW Standard Deviation 45.7 fL RDW Coefficient of Variation 17.4 % Immature Granulocyte % (Auto) 1.1 % Immature Granulocyte # (Auto) 0.12 K/uL Nucleated RBC Absolute Count (auto) 0.05 K/uL Nucleated Red Blood Cells % 0.5 % Polychromasia 1+ Hypochromasia PRESENT Prothrombin Time 10.2 SECONDS Prothromb Time International Ratio 1.0 Activated Partial Thromboplast Time 24.3 SECONDS Partial Thromboplastin Ratio 0.9 D-Dimer 400 ug/L FEU Sodium Level 141 mmol/L Potassium Level 4.0 mmol/L Chloride Level 108 mmol/L Carbon Dioxide Level 25 mmol/L Anion Gap 8.0 mmol/L Blood Urea Nitrogen 14 mg/dl Creatinine 0.87 mg/dl Est Creatinine Clear Calc Drug Dose 72.7 ml/min Estimated GFR () 77.1 Estimated GFR (Non- 66.6 BUN/Creatinine Ratio 16.0 Random Glucose 146 mg/dl Calcium Level 8.6 mg/dl Magnesium Level 2.1 mg/dl Total Iron Binding Capacity 462 mcg/dl Transferrin 370 mg/dl Transferrin % Saturation % % Ferritin 5.3 ng/ml Total Creatine Kinase 60 U/L Creatine Kinase MB 1.1 ng/ml Creatine Kinase MB Ratio 1.8 Troponin I < 0.015 ng/ml Thyroid Stimulating Hormone (TSH) 4.290 uIu/ml Bedside Glucose 184 mg/dl Assessment and Plan 72-year-old female presents with symptomatic anemia with a past medical history of rectal bleeding from hemorrhoids, did see DR Don in the [facility] [place] system here in [place] 2 weeks ago but could not afford rectal suppositories ordered, has additional past history of diabetes, hypertension, PMR, and Sjogren's Acute blood loss anemia from rectal bleeding- Hgb of 8.1 (Baseline of 10) with acute rectal bleeding and subjective fatigue and weakness - s/p transfusion of 2 units of PRBC recheck of hgb between units was 8.7 gms - Iron Studies --> Ferritin, TIBC, Transferring, % Saturation consider contacting Dr Don this week Shortness of Breath, symptomatic anemia, hopefully will improved with transfusion - CXR: No appearance of infiltrate on CXR base on our read - D-Dimer negative, patient has history of allergy to contrast Diabetes - Regular Insulin 70/30 100 Units BID - BSG AC/HS - Continue holding home oral hypoglycemic agents HTN Losartan and Atenolol GERD Protonix DVT- Heparin Code Status- Full Resuscitation
[2018-02-28] MEDS: INSULIN HUMAN 70% NPH/30% REGULAR SC SCH ×2 (09:02→17:08)
[2018-02-28] MEDS: HEPARIN SOD 5000 UNIT/0.5 ML CARP SQ SCH ×3 (09:04→22:00)
[2018-02-28] MEDS: LOSARTAN POTASSIUM 50 MG TAB PO SCH (09:08)
[2018-02-28] MEDS: ASPIRIN 81 MG ECTAB PO SCH (09:08)
[2018-02-28] MEDS: PANTOprazole SOD 40 MG TAB PO SCH ×2 (09:09→20:24)
[2018-02-28 10:45] LABS: HEMATOCRIT 30.5 % (37-47); HEMOGLOBIN 8.7 g/dL (12.0-16.0); MEAN CORPUSCULAR HEMOGLOBIN 20.8 pg (25-34); MEAN CORPUSCULAR HGB CONC 28.5 g/dl (32-36); MEAN PLATELET VOLUME 9.8 fL (7.4-10.4); NUCLEATED RED BLOOD CELL ABS 0.07 K/uL (0-0); PLATELET COUNT 334 K/uL (130-400); RED CELL DISTRIBUTION WIDTH CV 17.7 % (11.5-14.5); RED CELL DISTRIBUTION WIDTH SD 47.4 fL (36.4-46.3); WHITE BLOOD COUNT 10.81 K/uL (4.8-10.8)
[2018-02-28 11:23] LABS: BASO % 0.3 %; BASO ABS # 0.03 K/uL (0-0.2); EOS % 4.9 %; EOS ABS # 0.53 K/uL (0-0.5); IG# 0.08 K/uL (0.00-0.02); LYMPH % 16.7 %; MONO % 5.6 %; NEUT % 71.8 %; NEUT ABS # 7.77 K/uL (1.4-6.5)
[2018-02-28] MEDS ORDERED: NURSING VERBAL MED ORDER ONE (16:15)
[2018-02-28] MEDS ORDERED: HYDROCORTISONE HC 2.5% CRM 30GM TUBE EXT PRN (16:30)
[2018-03-01 03:55] VITALS: BP 148/60; PULSE 60; TEMP 36.6; O2SAT 95
[2018-03-01] MEDS: HEPARIN SOD 5000 UNIT/0.5 ML CARP SQ SCH ×2 (05:37→12:16)
[2018-03-01 07:04] VITALS: BP 153/71; PULSE 75; TEMP 36.5; O2SAT 95
[2018-03-01] MEDS: ASPIRIN 81 MG ECTAB PO SCH (07:38)
[2018-03-01] MEDS: LOSARTAN POTASSIUM 50 MG TAB PO SCH (07:38)
[2018-03-01] MEDS: PANTOprazole SOD 40 MG TAB PO SCH (07:38)
[2018-03-01] MEDS: INSULIN HUMAN 70% NPH/30% REGULAR SC SCH (07:44)
[2018-03-01 11:57] VITALS: BP 131/85; PULSE 63; TEMP 36.7; O2SAT 95
[2018-03-01 13:10] LABS: HEMATOCRIT 33.9 % (37-47)
[2018-03-01 15:07] VITALS: BP 153/77; PULSE 62; TEMP 36.9; O2SAT 92
--- NOTE | 2018-03-01 16:03 | Discharge Instructions ---
Discharge Instructions Date of Service Mar 01, 2018. Admission Reason for Admission: Acute Hemorrhage, Lower Gi Bleed Discharge Discharge Diagnosis / Problem: Symptomatic anemia, Discharge Goals Goal(s): Decrease discomfort, Improve function, Increase independence, Improve disease control, Improve nutritional status, Learn about illness, Diagnostic testing, Therapeutic intervention, Prevent Disease Progression, Specific goals Activity Recommendations Activity Limitations: resume your previous activity . Instructions / Follow-Up Instructions / Follow-Up You have symptomatic anemia You have acute blood loss anemia from rectal bleeding- Hgb of 8.1 (Baseline of 10) with acute rectal bleeding and subjective fatigue and weakness Acute anemia likely because of hemorrhoid bleeding, I was recommending you to be transfered to rectal surgeon surgeon in [place] , however you declined and you want to go home and watch, and follow-up with him as outpatient, Your hemoglobin is improved after 2 unit blood transfusion, - you need to follow up with your primary care physician in 1 week, - take medication as instructed, never overdose or any misuse, or take with alcohol, because misuse of medicine may cause organ damage or , call me , or your primary care physician if have questions of discharge medicaitons. - call your primary care physician, or go to local emergency room if has any fever/chill, chest pain, shortness of breathing, nausea/vomiting/abdominal pain , facial droop/slurry speech/local weakness, or if has any questions. - fall precaution - diet as instructed - you need to follow up with your subspecialist, such as rectal surgeon surgeon in [place] Current Hospital Diet Patient's current hospital diet: Diabetes Type 2 Diet Discharge Diet Recommended Diet: Diabetes Type 2 Diet Pending Studies Studies pending at discharge: no Medical Emergencies . Who to Call and When: Medical Emergencies: If at any time you feel your situation is an emergency, please call 911 immediately. . Non-Emergent Contact Non-Emergency issues call your: Primary Care Provider, Surgeon . . "Provider Documentation" section prepared by Lee Laguna. .
--- NOTE | 2018-03-01 16:08 | Discharge Summary ---
Discharge Summary Date of Service Mar 01, 2018. Discharge Summary Admission Date: Feb 28, 2018 at 03:51 Discharge Date: Mar 01, 2018 Discharge Disposition: Home Principal Diagnosis: Acute symptomatic anemia, Problems/Secondary Diagnoses: Acute anemia likely from GI bleeding possible from internal hemorrhoid Immunizations: Have You Had Influenza Vaccine: No History of Tetanus Vaccine?: Yes History of Pneumococcal: 2nd dose due 2012 Pneumococcal Date: Aug 01, 2006 History of Hepatitis B Vaccine: No Procedures: No Consultations: No Medication Reconciliation Continued Medications: Aspirin (Aspirin 81) 81 Mg Tab 81 MG PO DAILY Atenolol (Atenolol) 50 Mg Tab 50 MG PO AMPM Empagliflozin (Jardiance) 10 Mg Tab 10 MG PO DAILY Insulin Isophan/Regular (Novolin 70/30) Susp 100 UNITS SC BIDM, BTL Losartan Potassium (Cozaar) 100 Mg Tab 100 MG PO DAILY, TAB Metformin Hcl (Glucophage) 1,000 Mg Tab 1000 MG PO BID, TAB Pantoprazole (Protonix) 40 Mg Tab 40 MG PO BID, #30 TAB Potassium Citrate (Alkalinizer (Potassium Citrate) 540 Mg Tab 540 MG PO BID Discharge Exam Doing well, up and walk, no dizziness, Review of Systems: Constitutional: No fever, No chills, No sweats, No weight loss, No weakness , No fatigue, No problem reported Eyes: No worsening of vision, No eye pain, No redness, No discharge, No diplopia, No problem reported ENT: No hearing loss, No unusual epistaxis, No nasal symptoms, No sore throat, No tinnitus, No dental problems, No trouble swallowing, No problem reported Respiratory: No cough, No sputum, No wheezing, No shortness of breath, No dyspnea on exertion, No dyspnea at rest, No hemoptysis, No problem reported Cardiovascular: No chest pain, No orthopnea, No PND, No edema, No claudication, No palpitations, No problem reported Abdomen: No pain, No nausea, No vomiting, No diarrhea, No constipation, No GI bleeding, No problem reported Musculoskeletal: No joint pain, No muscle pain, No swelling, No calf pain, No problem reported Genitourinary - Female: No dysuria, No urinary frequency, No urinary urgency , No urinary incontinence, No urinary retention, No hematuria, No dysmenorrhea, No menorrhagia, No metrorrhagia, No rash, No vaginal bleeding, No vaginal discharge, No vaginal itching, No vulvodynia, No , No problem reported Neurologic: No memory loss, No paralysis, No weakness, No numbness/tingling , No vertigo, No balance problems, No problem reported Psychiatric: No depression symptoms, No anhedonism, No anxiety, No insomnia , No substance abuse, No problem reported Endocrine: No fatigue, No excessive thirst, No excessive urination, No problem reported Hospital Course 72-year-old female admitted on February 27, 2018 with symptomatic anemia with a past medical history of rectal bleeding from hemorrhoids, did [place] [facility] [place] ago but could not afford rectal suppositories ordered, Additional past history of diabetes, hypertension, PMR, and Sjogren's Acute blood loss anemia from rectal bleeding- Hgb of 8.1 (Baseline of 10) with acute rectal bleeding and subjective fatigue and weakness s/p transfusion of 2 units of PRBC recheck of hgb between units was 8.7 gms, repeated this morning is 10 - Iron Studies --> Ferritin, TIBC, Transferring, % Saturation Shortness of Breath, symptomatic anemia, totally resolved after blood transfusion, I did recommend pt to be transfered to rectal surgeon in [place], however she declined and she wanted to go home and watch, and follow-up with him as outpatient, Carefully and thorough counselling the risk of going home because she continued bleeding rectally which could be from internal hemorrhoids or some other source of bleeding, injury patient was associated with difficulty breathing etc., which is symptomatic anemia, patient understand and willing to take all risk by herself, she reports she has been having rectal bleeding for 5 years, she also understand AGAINST MEDICAL ADVICE may cause permanent organ damage and even , and this was discussed in bedside with patient, she was awake alert and orientated I believe competent to make decision by herself I told her to contact rectal surgeon and to be seen as soon as possible she agreed, Diabetes - Regular Insulin 70/30 100 Units BID - BSG AC/HS - Continue holding home oral hypoglycemic agents HTN Losartan and Atenolol GERD Protonix DVT- Heparin Code Status- Full Resuscitation You have symptomatic anemia You have acute blood loss anemia from rectal bleeding- Hgb of 8.1 (Baseline of 10) with acute rectal bleeding and subjective fatigue and weakness Acute anemia likely because of hemorrhoid bleeding, I was recommending you to be transfered to rectal surgeon surgeon in [place] , however you declined and you want to go home and watch, and follow-up with him as outpatient, Your hemoglobin is improved after 2 unit blood transfusion, - you need to follow up with your primary care physician in 1 week, - take medication as instructed, never overdose or any misuse, or take with alcohol, because misuse of medicine may cause organ damage or , call me , or your primary care physician if have questions of discharge medicaitons. - call your primary care physician, or go to local emergency room if has any fever/chill, chest pain, shortness of breathing, nausea/vomiting/abdominal pain , facial droop/slurry speech/local weakness, or if has any questions. - fall precaution - diet as instructed - you need to follow up with your subspecialist, such as rectal surgeon surgeon in [place] Total Time Spent: Greater than 30 minutes This includes examination of the patient, discharge planning, medication reconciliation, and communication with other providers. Discharge Instructions Please refer to the electronic Patient Visit Report (Discharge Instructions) for additional information. Additional Copies To Lucila Rojas M.D.; Sharon Don M.D.
[2018-03-01 16:20] VITALS: BP 153/77; PULSE 62; TEMP 36.9; O2SAT 92
== END 2018-03-01 16:50 | disposition home or self-care (01) | DRG 378 ==
LOC: C.EDB 01:32 → C.2T 03:51 → ENRESERV 04:04
PROVIDERS: ADMIT Student in an Organized Health Care Education/Training Program; ATTEND Hospitalist
DX: K62.5 Hemorrhage of anus and rectum (principal); D62 Acute posthemorrhagic anemia; E11.9 Type 2 diabetes mellitus without complications; K21.9 Gastro-esophageal reflux disease without esophagitis; I10 Essential (primary) hypertension; R06.02 Shortness of breath; Z79.4 Long term (current) use of insulin; Z79.82 Long term (current) use of aspirin; Z79.84 Long term (current) use of oral hypoglycemic drugs; Z79.899 Other long term (current) drug therapy

== ENCOUNTER → 2018-03-15 | Outpatient (CLI) | payer OTHER ==
[~2018-03-15] MED LIST changes: -ALLO100T PO; +ATEN-173 PO; -CLC100 PO; +EMPA1TAB PO; -FLV1 PO; -FRRS300 PO; -GABA-113 PO; -MAGN400T6 PO; -METH1TAB81 PO; -METH2.5T PO; -NRV5 PO; -VLTG EXT
[2018-03-15 12:49] LABS: HEMOGLOBIN A1C 8.8 % (4.5-5.6)
[2018-03-15 13:39] LABS: HEMATOCRIT 35.4 % (37-47); HEMOGLOBIN 9.9 g/dL (12.0-16.0)
== END | disposition home or self-care (01) ==
LOC: C.LABBFT 08:54
PROVIDERS: ATTEND Internal Medicine
DX: E11.65 Type 2 diabetes mellitus with hyperglycemia (principal); D50.9 Iron deficiency anemia, unspecified

== ENCOUNTER 2019-01-29 01:06 | Inpatient (IN) ==
[2019-01-29 02:08] LABS: Basophils # (auto) 0.05 K/uL (0-0.2); Basophils % (auto) 0.5 %; Eosinophils # (auto) 0.41 K/uL (0-0.5); Eosinophils % (auto) 3.8 %; Hematocrit (blood only) 35.6 % (37-47); Hemoglobin 10.5 g/dL (12.0-16.0); Immature Granulocytes # (auto) 0.07 K/uL (0.00-0.02); Immature Granulocytes % (auto) 0.6 %; Lymphocytes # (auto) 3.08 K/uL (1.2-3.4); Lymphocytes % (auto) 28.5 %; Mean Corpuscular Hgb Conc 29.5 g/dL (32-36); Mean Corpuscular Volume 68.9 fL (80-100); Mean Platelet Volume 9.8 fL (7.4-10.4); Monocytes % (auto) 6.5 %; Neutrophils # (auto) 6.48 K/uL (1.4-6.5); Neutrophils % (auto) 60.1 %; Nucleated RBC # (auto) 0.02 K/uL (0-0); Nucleated RBC % (auto) 0.2 %; Platelet Count 351 K/uL (130-400); RDW Coefficient of Variation 18.6 % (11.5-14.5); RDW Standard Deviation 46.3 fL (36.4-46.3); Red Blood Count 5.17 M/uL (4.2-5.4); White Blood Count 10.79 K/uL (4.8-10.8)
[2019-01-29 02:15] LABS: Alanine Aminotransferase 37 U/L (12-78); Albumin Level 3.4 gm/dl (3.4-5.0); Aspartate Aminotransferase 20 U/L (15-37); BUN Creatinine Ratio 23.7 (10-20); Blood Urea Nitrogen 21 mg/dl (7-18); Calcium 9.6 mg/dl (8.5-10.1); Carbon Dioxide 27 mmol/L (21-32); Chloride 103 mmol/L (98-107); Creatinine Clr Calc Pharmacy 68.6 ml/min; Est GFR (African American) 73.5; Est GFR (Non-African American) 63.4; Glucose 166 mg/dl (70-99); Potassium 3.8 mmol/L (3.5-5.1); Sodium 138 mmol/L (136-145)
[2019-01-29 02:20] LABS: Albumin Globulin Ratio 0.8 (0.9-2); Alkaline Phosphatase 61 U/L (45-117); Bilirubin,Total 0.2 mg/dl (0.2-1); Globulin 4.5 gm/dl (2.5-4.0); Total Protein 7.9 gm/dl (6.4-8.2); Troponin I < 0.015 ng/ml (0-0.045)
[2019-01-29 02:46] LABS: Anisocytosis Present; Hypochromasia Present; Microcytosis Present; Polychromasia 1+
[2019-01-29] MEDS ORDERED: ASPIRIN CHEW 324 MG PO STA (04:17)
[2019-01-29] MEDS ORDERED: METOPROLOL TARTRATE 1 MG/ML VIAL IV STA (04:17)
--- NOTE | 2019-01-29 05:55 | History & Physical Report ---
Date of Service January 29, 2019 Assessment & Plan (1) Left-sided chest pain: -Atypical -Will trend troponin -Cards consult placed, appreciate recs -Echo ordered for AM -Keep NPO -Monitor symptoms (2) Uncontrolled hypertension: -Cont home meds -PRN lopressor IV (3) Diabetes mellitus: -Most recent A1c of 9.9 1 month ago -Placed on ISS (4) CHF (congestive heart failure): -Continue home meds -Last echo showed EF of 60-65% -Repeat echo -Has prn lasix, but has not needed in a month per pt. -Trace crackles bilaterally -Euvolemic (5) Sleep apnea: Does not use device; would recommend (6) PMR (polymyalgia rheumatica): Cont home meds (7) Transient ischemic attack (TIA): Continue home meds (8) HTN (hypertension): (9) Hx of lumpectomy: (10) DVT prophylaxis: Lovenox. Code: full (11) GERD (gastroesophageal reflux disease): -Converted omeprazole to pantoprazole -Followed by GI -Recent EGD/Colonoscopy, +polyp and ?hemangioma per pt History of Present Illness Chief Complaint: Chest pain Primary Care Provider: Lucila Rojas MD Patient is a 73 yo F PMH uncontrolled T2DM, HTN, PMR, diastolic CHF, TIA x2, chronic anemia 2/2 GI blood loss, GERD, Breast Cancer, nephrolithiasis, LYNDA not on CPAP who presents with acute substernal chest pain. She notes the pain woke her up around midnight and radiated to her back, neck and Left arm. She did not take anything for the pain. The episode resolved on its own after 45 minutes. Was a/w lightheadedness, unsteadiness, and nausea. Denied diaphoresis/palpitations/change with exertion. Notes some "twinges" of pain since original episode resolved. Also reports that yesterday she had an acute episode of pain in her head which descended into her neck and resulted in ear ringing. No fam h/o ASCVD. Patient notes she has been having similar episodes for the past 2 weeks, but none that were as severe or lasted as long as this one. She has seen cardiology for atypical CP, most recently 1 month ago, and was told symptoms were unlikely to be cardiac in nature; she was scheduled for a dobutamine stress test in March 2019. She reports she had been checking her BPs at home yesterday and noted they were normal, with highest SBP of 165. Had cardiac cath 6-7 years ago and was told it was normal. In the ER, she was found to be hypertensive with SBP in 230s. CT head negative. Trop negative. No acute EKG changes. Allergies Allergy/AdvReac Type Severity Reaction Status Date / Time Iodinated Contrast- Oral and Allergy Severe ANAPHYLAXIS Verified 01/29/19 02:18 IV Dye /CONVULSION S sumatriptan Allergy Severe SOB,INCREASED Verified 01/29/19 02:18 HEARTRATE Bactrim Allergy Intermediate hives Verified 03/15/18 10:08 Cipro Allergy Intermediate hives Verified 03/15/18 10:08 ciprofloxacin Allergy Intermediate hives Verified 01/29/19 02:18 metronidazole Allergy Intermediate HIVES Verified 01/29/19 02:18 Quinolones Allergy Intermediate HIVES Verified 01/29/19 02:18 sulfamethoxazole Allergy Intermediate hives Verified 01/29/19 02:18 trimethoprim Allergy Intermediate hives Verified 01/29/19 02:18 adhesive AdvReac Severe SEVERE Verified 01/29/19 02:18 BURNING BLISTERS furosemide [From Lasix] AdvReac Mild Cramping Verified 01/29/19 02:18 of the Muscles tramadol AdvReac Mild FATIGUE Verified 01/29/19 02:18 Home Medications Home Medications Medication Instructions Recorded Confirmed Type Novolin 70/30 U-100 Insulin 100 unit SUBCUT AMPM 04/12/18 01/29/19 History atenolol 25 mg PO BID 04/12/18 01/29/19 History losartan 100 mg PO QAM 04/12/18 01/29/19 History metformin 1,000 mg PO BID 04/12/18 01/29/19 History allopurinol 100 mg PO QAM 04/25/18 01/29/19 History amlodipine 5 mg PO QAM 10/05/18 01/29/19 History omeprazole 40 mg PO QAM 10/07/18 01/29/19 History empagliflozin [Jardiance] 25 mg PO DAILY 01/11/19 01/29/19 History Past Med/Surg History Medical History Pneumonia Acute respiratory failure with hypoxia CHF (congestive heart failure) Sleep apnea NO DEVICE Hypertension Transient ischemic attack (TIA) 2014 AND 2015 Anemia Diabetes mellitus, type 2 Thyroid goiter GERD (gastroesophageal reflux disease) GI bleed Kidney stones Osteoarthritis PMR (polymyalgia rheumatica) Herniated disc CERVICAL AND LUMBAR TIA (transient ischemic attack) (Resolved 01/21/14) HTN (hypertension) (Chronic 01/21/14) DM (diabetes mellitus) type II controlled, neurological manifestation (Chronic 01/21/14) Urinary tract infection (Acute) History of spinal stenosis (Acute) GIB (gastrointestinal bleeding) Hyperglycemia Arrhythmia Cancer BREAST CANCER X 2 Cardiac murmur MILD Diverticulitis Surgical History History of appendectomy History of colonoscopy History of esophagogastroduodenoscopy (EGD) History of lithotripsy History of cystoscopy Hx of lumpectomy RT BREAST X 2 (RADIATION TREATMENT) History of bilateral tubal ligation History of appendectomy (Chronic) History of cardiac cath 7 YEARS AGO -NO STENTS History of tooth extraction Family History Grandmother Family history of diabetes mellitus Father Family history of diabetes mellitus Mother Family history of diabetes mellitus Social History Preferred Language: Hebrew Communication Ability: Effective Beliefs That Will Affect Care: None marital status: marital status details: No children Current Living Situation: Spouse current occupational status: retired 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 Feels Safe at Home: Yes Smoking Status: Never smoker Second Hand Exposure: No Hx Alcohol Use: No Hx Substance Use: No Review of Systems Review of Systems: All systems reviewed & are unremarkable except as noted in HPI & below Constitutional: + malaise and + weakness Ear, Nose, Mouth, Throat: + tinnitus Respiratory: no dyspnea Cardiovascular: + chest pain, + radiating jaw, neck or arm pain and + lightheadedness; no palpitations, no syncope and no calf pain Gastrointestinal: + nausea; no abdominal pain and no vomiting Neurologic: + unsteadiness Physical Exam Constitutional: WD/WN, vitals as above + obese Eyes: PERRL, conjunctivae normal, anicteric sclerae ENMT: external ear and nose normal, oropharynx normal Neck: normal visual inspection Respiratory: normal respiratory effort; no respiratory distress Auscultation: + crackles (scant bibasilar) Cardiovascular: Rate/Rhythm: regular rate and regular rhythm Heart Sounds: + murmur (YAMINI) Gastrointestinal (Abdomen): normal bowel sounds, soft, nontender, no hepatosplenomegaly Musculoskeletal: no cyanosis or clubbing, extremities motor strength 5/5 Skin: no rashes, warm and dry Neurologic: PERRL, EOMI, accommodation nl, no face palsy, no dysarthria Psychiatric: A+Ox3, euthymic affect Results & Data Vital Signs (Past 12 Hours) Vital Signs Temp Pulse Resp BP Pulse Ox 01/29/19 05:31 68 24 204/81 H 95 01/29/19 05:01 68 21 187/69 H 95 01/29/19 04:31 69 21 169/62 H 01/29/19 04:23 70 23 155/64 H 94 01/29/19 03:32 70 23 213/83 H 97 01/29/19 03:01 69 18 173/59 H 94 01/29/19 02:01 66 22 178/56 H 94 01/29/19 01:52 72 23 207/68 H 97 01/29/19 01:14 76 25 H 243/93 H 95 01/29/19 01:13 36.8 C 80 18 243/93 H 95 Laboratory Results 01/29/19 01/29/19 Range/Units 01:28 01:28 WBC 10.79 (4.8-10.8) K/uL RBC 5.17 (4.2-5.4) M/uL Hgb 10.5 L (12.0-16.0) g/dL Hct 35.6 L (37-47) % MCV 68.9 L (80-100) fL MCH 20.3 L (25-34) pg MCHC 29.5 L (32-36) g/dL RDW Std Deviation 46.3 (36.4-46.3) fL RDW Coeff of Guevara 18.6 H (11.5-14.5) % Plt Count 351 (130-400) K/uL MPV 9.8 (7.4-10.4) fL Immature Gran % (Auto) 0.6 % Neut % (Auto) 60.1 % Lymph % (Auto) 28.5 % [place] % (Auto) 6.5 % Eos % (Auto) 3.8 % Baso % (Auto) 0.5 % Immature Gran # (Auto) 0.07 H (0.00-0.02) K/uL Neut # (Auto) 6.48 (1.4-6.5) K/uL Lymph # (Auto) 3.08 (1.2-3.4) K/uL [place] # (Auto) 0.70 H (0.11-0.59) K/uL Eos # (Auto) 0.41 (0-0.5) K/uL Baso # (Auto) 0.05 (0-0.2) K/uL Absolute Nucleated RBC 0.02 H (0-0) K/uL Nucleated RBC % (auto) 0.2 % Polychromasia 1+ Hypochromasia Present Anisocytosis Present Microcytosis Present Sodium 138 (136-145) mmol/L Potassium 3.8 (3.5-5.1) mmol/L Chloride 103 (98-107) mmol/L Carbon Dioxide 27 (21-32) mmol/L Anion Gap 8.0 (3-11) BUN 21 H (7-18) mg/dl Creatinine 0.90 (0.6-1.2) mg/dl Est Cr Clr Drug Dosing 68.6 ml/min Est GFR ( Amer) 73.5 Est GFR (Non-Af Amer) 63.4 BUN/Creatinine Ratio 23.7 H (10-20) Glucose 166 H (70-99) mg/dl Calcium 9.6 (8.5-10.1) mg/dl Total Bilirubin 0.2 (0.2-1) mg/dl AST 20 (15-37) U/L ALT 37 (12-78) U/L Alkaline Phosphatase 61 (45-117) U/L Troponin I < 0.015 (0-0.045) ng/ml Total Protein 7.9 (6.4-8.2) gm/dl Albumin 3.4 (3.4-5.0) gm/dl Globulin 4.5 H (2.5-4.0) gm/dl Albumin/Globulin Ratio 0.8 L (0.9-2) Lipase 144 (73-393) U/L Code Status & VTE Plan Code Status Full Supervising Physician Co-Signing Physician Notes Attending addendum: I have physically seen this patient, have supervised the medical residents activities, and agree with the H&P unless as otherwise noted. Assessment and Plan: Left-sided chest pain to the left arm- The patient will be admitted to telemetry for serial cardiac enzymes, serial EKG's, cardiac rhythm monitoring and a 2-D echocardiogram with Dopplers. Continue atenolol 25 mg p.o. twice daily, losartan 100 mg p.o. every morning and amlodipine 5 mg p.o. every morning. Add Lopressor 5 mg IV every 4 hours as needed systolic blood pressure rhythm 160. Consult cardiology. Diabetes mellitus- Hold metformin, Jardiance. Continue 7030 at reduced dosing from 100 subcu twice daily to 80 subcu twice daily. Remainder orders notations as noted. PG Care Time/CCT Total # of Minutes Spent Total Time Spent with Patient: Total time spent is greater than 50% in coordination of care (as documented) at patient's floor/unit and/or counseling patient: Resident Activity Tracking Resident Involvement: Resident Care Provided Care Provided: Adult Hospital Medicine (1) Sleep apnea Sleep apnea type: obstructive Qualified Code(s): G47.33 - Obstructive sleep apnea (adult) (pediatric) (2) CHF (congestive heart failure) Heart failure chronicity: unspecified Heart failure type: unspecified Qualified Code(s): I50.9 - Heart failure, unspecified
[2019-01-29] MEDS ORDERED: MAGNESIUM HYDROXIDE SUSP 30 ML UDC PO PRN (06:27)
[2019-01-29] MEDS ORDERED: GLUCAGON FOR INJ 1 MG VIAL SQ PRN (06:27)
[2019-01-29] MEDS ORDERED: POLYETHYLENE (MIRALAX) 17 GM PACK PO PRN (06:27)
[2019-01-29] MEDS ORDERED: GLUCOSE 10 TABS/TUBE PO PRN (06:27)
[2019-01-29] MEDS ORDERED: METOPROLOL TARTRATE 1 MG/ML VIAL IV PRN (06:27)
[2019-01-29] MEDS ORDERED: CARBOHYDRATES FOR HYPOGLYCEMIA PO PRN (06:27)
[2019-01-29] MEDS ORDERED: ONDANSETRON INJ 2 MG/ML 2 ML VIAL IV PRN (06:27)
[2019-01-29] MEDS ORDERED: NITROGLYCERIN SL 0.4 MG/TAB TAB SL PRN (06:27)
[2019-01-29] MEDS ORDERED: MoRPHine SULFATE 2 MG/ML CARP IV PRN (06:27)
[2019-01-29] MEDS ORDERED: ACETAMINOPHEN 325 MG TAB PO PRN (06:27)
[2019-01-29] MEDS ORDERED: GLUCOSE 40% GEL 15 GM TUBE PO PRN (06:27)
[2019-01-29] MEDS ORDERED: ALUMINUM/MAGNESIUM SUSP 30 ML UDC PO PRN (06:27)
[2019-01-29] MEDS ORDERED: DEXTROSE 50% 50 ML SYRINGE IV PRN (06:27)
--- NOTE | 2019-01-29 06:44 | XRay Report ---
XR chest 1V portable CLINICAL HISTORY: 73 years-old Female presenting with Chest Pain, central chest pain radiating to the left, symptoms for the past week, dizziness. TECHNIQUE: Portable upright AP view of the chest was obtained. COMPARISON: 01/11/2019. FINDINGS: Atherosclerosis of the aortic arch. Cardiac silhouette borderline enlarged. Enlargement of the main p ulmonary artery suspected as on prior exam. Mild elevation of the right hemidiaphragm. Persistent ban dlike opacity in the left mid lung. Minimal basilar opacities. No pleural effusion or pneumothorax. O sseous structures normal. Upper abdomen normal. IMPRESSION: 1. Minimal basilar opacities likely atelectasis or scarring. 2. Borderline cardiomegaly. 3. Suspected pulmonary artery hypertension. Electronically signed by: Bhavesh Villalobos M.D. 01/29/2019 6:42 AM
--- NOTE | 2019-01-29 07:18 | CT Scan Report ---
CT head/brain wo con CLINICAL HISTORY: 73 years-old Female presenting with dizziness, evaluate for stroke. TECHNIQUE: Multidetector CT imaging of the head was performed without the use of intravenous contrast . IV contrast: None. One or more dose lowering techniques were used consistent with the principles of ALARA (as low as reasonably achievable), including automatic exposure control, mA or kV adjustment t o individual patient size, and/or use of iterative reconstruction. COMPARISON: 11/03/2014. CT DOSE (mGy.cm): The estimated cumulative dose is 614.27 mGy.cm. FINDINGS: Industrial Hygenist topogram: Unremarkable. Ventricles and sulci normal in size. No hemorrhage. Brain parenchyma normal in appearance with preser ramesh coffman-white differentiation. No acute territorial infarct. No mass effect or midline shift. No ext ra-axial fluid collection. Paranasal sinuses and mastoid air cells clear. Calvarium intact. IMPRESSION: 1. No acute intracranial abnormality. Electronically signed by: Bhavesh Villalobos M.D. 01/29/2019 7:17 AM
--- NOTE | 2019-01-29 07:34 | Emergency Department Note ---
Entered by Jacky Lynn acting as a scribe for History of Present Illness General Chief complaint: Chest Pain Stated complaint: CHEST PAIN,ARM PAIN, BACK PAIN Time Seen by Provider: 01/29/19 01:16 Source: patient History of Present Illness Provider complaint: Chest pain Onset (ago): hour(s) 4 Location: chest Radiation: extremity (Left upper) Severity: similar to prior episodes Pain Consistency: + constant and + intermittent Relieved By: + none Exacerbated By: + none Associated symptoms: + headaches, + nausea/vomiting (No vomiting) and + other (Positive dizziness) The patient is a 73 year old female who presents to the Emergency Room with complaints of intermittent left sided chest pain that started this evening, about 4 hours ago. The patient states the pain radiated to her left arm so she tried to sleep it off. Upon awakening, the patient states the pain was worse and she felt nauseous and dizzy. The patient reports that she also has indigestion on the way to the hospital, but that has since resolved. She also notes that the arm pain and dizziness have resolved as well. Currently, the chest pain is still intermittently present and she denies using any Nitro while at home. The patient reports that she was in the ED about 2 weeks ago for similar symptoms, but tonight they are worse. She has not yet had her follow up appointment with her PCP following this first visit. The patient mentioned that earlier today around 1030, she noticed the right side of her head develop a "fullness" and her right ear started ringing before she lost hearing in it. Currently, the patient still is noticing something abnormal with her hearing in her right ear. The patient states she checks her blood pressure everyday and it was normal throughout the day. She has a history of CHF, TIA, HTN, and Diabetes. Home Medications Home Medications Medication Instructions Recorded Confirmed Type Novolin 70/30 U-100 Insulin 100 unit SUBCUT AMPM 04/12/18 01/29/19 History atenolol 25 mg PO BID 04/12/18 01/29/19 History losartan 100 mg PO QAM 04/12/18 01/29/19 History metformin 1,000 mg PO BID 04/12/18 01/29/19 History allopurinol 100 mg PO QAM 04/25/18 01/29/19 History amlodipine 5 mg PO QAM 10/05/18 01/29/19 History omeprazole 40 mg PO QAM 10/07/18 01/29/19 History empagliflozin [Jardiance] 25 mg PO DAILY 01/11/19 01/29/19 History Allergies Allergy/AdvReac Type Severity Reaction Status Date / Time Iodinated Contrast- Oral and Allergy Severe ANAPHYLAXIS Verified 01/29/19 02:18 IV Dye /CONVULSION S sumatriptan Allergy Severe SOB,INCREASED Verified 01/29/19 02:18 HEARTRATE Bactrim Allergy Intermediate hives Verified 03/15/18 10:08 Cipro Allergy Intermediate hives Verified 03/15/18 10:08 ciprofloxacin Allergy Intermediate hives Verified 01/29/19 02:18 metronidazole Allergy Intermediate HIVES Verified 01/29/19 02:18 Quinolones Allergy Intermediate HIVES Verified 01/29/19 02:18 sulfamethoxazole Allergy Intermediate hives Verified 01/29/19 02:18 trimethoprim Allergy Intermediate hives Verified 01/29/19 02:18 adhesive AdvReac Severe SEVERE Verified 01/29/19 02:18 BURNING BLISTERS furosemide [From Lasix] AdvReac Mild Cramping Verified 01/29/19 02:18 of the Muscles tramadol AdvReac Mild FATIGUE Verified 01/29/19 02:18 Past Med/Surg History Medical History Pneumonia Acute respiratory failure with hypoxia CHF (congestive heart failure) Sleep apnea NO DEVICE Hypertension Transient ischemic attack (TIA) 2014 AND 2015 Anemia Diabetes mellitus, type 2 Thyroid goiter GERD (gastroesophageal reflux disease) GI bleed Kidney stones Osteoarthritis PMR (polymyalgia rheumatica) Herniated disc CERVICAL AND LUMBAR TIA (transient ischemic attack) (Resolved 01/21/14) HTN (hypertension) (Chronic 01/21/14) DM (diabetes mellitus) type II controlled, neurological manifestation (Chronic 01/21/14) Urinary tract infection (Acute) History of spinal stenosis (Acute) GIB (gastrointestinal bleeding) Hyperglycemia Arrhythmia Cancer BREAST CANCER X 2 Cardiac murmur MILD Diverticulitis Surgical History History of appendectomy History of colonoscopy History of esophagogastroduodenoscopy (EGD) History of lithotripsy History of cystoscopy Hx of lumpectomy RT BREAST X 2 (RADIATION TREATMENT) History of bilateral tubal ligation History of appendectomy (Chronic) History of cardiac cath 7 YEARS AGO -NO STENTS History of tooth extraction Family History Grandmother Family history of diabetes mellitus Father Family history of diabetes mellitus Mother Family history of diabetes mellitus Social History Preferred Language: Croatian Communication Ability: Effective Beliefs That Will Affect Care: None marital status: marital status details: No children Current Living Situation: Spouse current occupational status: retired 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 and A total of 10 systems reviewed and were otherwise negative Physical Exam Vital Signs Vital Signs - 24 hr 01/29/19 01:13 01/29/19 01:14 01/29/19 01:52 Temperature 36.8 C Temperature Source Oral Sepsis Recent Fever Within 48 Hours No Sepsis New/Unexplained Change in Mental Status No Sepsis Action Taken by Nursing No Action Required Pulse Rate 80 76 72 Pulse Rate from SpO2 Sensor 76 72 Respiratory Rate 18 25 H 23 Blood Pressure 243/93 H 243/93 H 207/68 H Blood Pressure Mean 143 143 114 Pulse Oximetry 95 95 97 Oxygen Delivery Method Room Air Room Air Room Air 01/29/19 02:01 01/29/19 03:01 01/29/19 03:32 Temperature Temperature Source Sepsis Recent Fever Within 48 Hours Sepsis New/Unexplained Change in Mental Status Sepsis Action Taken by Nursing Pulse Rate 66 69 70 Pulse Rate from SpO2 Sensor 69 69 70 Respiratory Rate 22 18 23 Blood Pressure 178/56 H 173/59 H 213/83 H Blood Pressure Mean 96 97 126 Pulse Oximetry 94 94 97 Oxygen Delivery Method Room Air Room Air Room Air 01/29/19 04:23 01/29/19 04:31 01/29/19 05:01 Temperature Temperature Source Sepsis Recent Fever Within 48 Hours Sepsis New/Unexplained Change in Mental Status Sepsis Action Taken by Nursing Pulse Rate 70 69 68 Pulse Rate from SpO2 Sensor 70 69 Respiratory Rate 23 21 21 Blood Pressure 155/64 H 169/62 H 187/69 H Blood Pressure Mean 94 97 108 Pulse Oximetry 94 95 Oxygen Delivery Method Room Air Room Air HEENT: Head - normocephalic and atraumatic. Pupils are equal, round, and r eactive to light. Extraocular eye muscles are intact and sclera are anicteric. Ears - bilaterally patent canals with noninjected tympanic membranes and no evidence of hemotympanum. Nose - moist nasal mucosa without discharge. Mouth - moist buccal mucosa. Oropharynx is nonerythematous and there is no tonsillar exudate or edema noted. Neck: Supple; no JVD, nuchal rigidity, cervical lymphadenopathy. Heart: Regular rate and rhythm. There is a normal S1 and S2 with no murmurs, clicks, or gallops appreciated. Lungs: Clear to auscultation bilaterally with no wheezes, rales, or rhonchi. Abdomen: Soft, completely nontender, nondistended, with good bowel sounds. There are no palpable pulsatile masses or hepatosplenomegaly. There is no guarding, rigidity, or rebound noted. Extremities: No evidence of cyanosis, clubbing, or edema. There are easily palpable peripheral pulses. Neuro: The patient is awake and alert, oriented to day, time, and place. Muscle strength is 5/5 in all 4 extremities. The patient has equal cutter aluminum sheet strength and equal pedal push and pull. There are no cerebellar signs. Course 0148: Past medical records reviewed. The patient was evaluated in room B03B, and a complete history and physical examination were performed. A twelve-lead EKG was obtained. The patient will go for CT scan of the brain. 0305: I reevaluated the patient and she has had no recurrence of chest pain. I discussed her CT results with her and her . She also informed me that she has a dobutamine stress test scheduled for March. 0415: I checked on the patient and discussed the treatment plan with her and her . They both fully understand and are agreeable with the plan. [facility] hospitalist service was paged. Dr. Bazan - [facility] Hospitalist was informed about the patient's case and will be accepting her for further evaluation. 0417: I ordered Lopressor 5mg IV and Aspirin 324mg PO 0450: I spoke to Dr. Bazan's resident about the patient's case and they will be accepting her for further evaluation. Consultations Consultation #1: I spoke to Dr. Bazan's resident about the patient's case and they will be accepting her for further evaluation. Time: 04:50 Administered Medications Allopurinol (Zyloprim) 100 mg PO QAM [facility] Stop: 02/28/19 08:59 Last Admin: 01/29/19 08:44 Dose: 100 mg Documented by: [id number] Atenolol (Tenormin) 25 mg PO BID [facility] Stop: 02/28/19 08:59 Last Admin: 01/29/19 08:44 Dose: 25 mg Documented by: [id number] Enoxaparin Sodium (Lovenox) 40 mg SQ Q24H [facility] Stop: 02/28/19 09:59 Last Admin: 01/29/19 10:44 Dose: 40 mg Documented by: [id number] Insulin Aspart (Novolog Flexpen) 0 units SC ACHS [facility] Stop: 02/28/19 07:29 Last Admin: 01/29/19 13:31 Dose: 8 units Documented by: [id number] Cosigned by: [id number] Admin: 01/29/19 08:42 Dose: 3 units Documented by: [id number] Cosigned by: [id number] Insulin Glargine (Lantus Solostar Pen) 18 units SC BID [facility] Stop: 02/28/19 08:59 Last Admin: 01/29/19 08:44 Dose: 18 units Documented by: [id number] Cosigned by: [id number] Losartan Potassium (Cozaar) 100 mg PO QAM [facility] Stop: 02/28/19 08:59 Last Admin: 01/29/19 08:42 Dose: 100 mg Documented by: [id number] [facility]oprazole [facility]ix) [facility] [place] Stop: 02/28/19 08:59 Last Admin: 01/29/19 08:43 Dose: 40 mg Documented by: [id number] Discontinued Medications Amlodipine Besylate ([facility]asc) [facility] [place] Stop: 02/28/19 08:59 Last Admin: 01/29/19 08:43 Dose: 5 mg Documented by: [id number] Amlodipine Besylate (Norvasc) 5 mg PO NOW ONE Stop: 01/29/19 12:06 Last Admin: 01/29/19 12:29 Dose: 5 mg Documented by: [id number] Aspirin (Aspirin) 324 mg PO NOW STA Stop: 01/29/19 04:18 Last Admin: 01/29/19 04:22 Dose: 324 mg Documented by: [id number] Metoprolol Tartrate (Lopressor) 5 mg IV NOW STA Stop: 01/29/19 04:18 Last Admin: 01/29/19 04:23 Dose: 5 mg Documented by: [id number] Perflutren Lipid Microsphere (Definity) 2 ml IV ONCE ONE Stop: 01/29/19 10:44 Last Admin: 01/29/19 10:44 Dose: 2 ml Documented by: [id number] Medical Decision Making Differential Diagnosis The patient is a 73 year old female who presents to the Emergency Room with complaints of intermittent left sided chest pain that started this evening, about 4 hours ago. Differential diagnosis includes GERD, STEMI, ACS, Uncontrolled hypertension, and Stroke, amongst others. Medical Records Attestation: I reviewed the patient's medical records. Home Medications Current Medication List: was personally reviewed by me Laboratory Data Attestation: I reviewed the patient's lab results. Result diagrams: 01/29/19 08:37 01/29/19 08:37 Lab Results 01/29/19 01/29/19 Range/Units 01:28 01:28 WBC 10.79 (4.8-10.8) K/uL RBC 5.17 (4.2-5.4) M/uL Hgb 10.5 L (12.0-16.0) g/dL Hct 35.6 L (37-47) % MCV 68.9 L (80-100) fL MCH 20.3 L (25-34) pg MCHC 29.5 L (32-36) g/dL RDW Std Deviation 46.3 (36.4-46.3) fL RDW Coeff of Guevara 18.6 H (11.5-14.5) % Plt Count 351 (130-400) K/uL MPV 9.8 (7.4-10.4) fL Immature Gran % (Auto) 0.6 % Neut % (Auto) 60.1 % Lymph % (Auto) 28.5 % [place] % (Auto) 6.5 % Eos % (Auto) 3.8 % Baso % (Auto) 0.5 % Immature Gran # (Auto) 0.07 H (0.00-0.02) K/uL Neut # (Auto) 6.48 (1.4-6.5) K/uL Lymph # (Auto) 3.08 (1.2-3.4) K/uL [place] # (Auto) 0.70 H (0.11-0.59) K/uL Eos # (Auto) 0.41 (0-0.5) K/uL Baso # (Auto) 0.05 (0-0.2) K/uL Absolute Nucleated RBC 0.02 H (0-0) K/uL Nucleated RBC % (auto) 0.2 % Polychromasia 1+ Hypochromasia Present Anisocytosis Present Microcytosis Present Sodium 138 (136-145) mmol/L Potassium 3.8 (3.5-5.1) mmol/L Chloride 103 (98-107) mmol/L Carbon Dioxide 27 (21-32) mmol/L Anion Gap 8.0 (3-11) BUN 21 H (7-18) mg/dl Creatinine 0.90 (0.6-1.2) mg/dl Est Cr Clr Drug Dosing 68.6 ml/min Est GFR ( Amer) 73.5 Est GFR (Non-Af Amer) 63.4 BUN/Creatinine Ratio 23.7 H (10-20) Glucose 166 H (70-99) mg/dl Calcium 9.6 (8.5-10.1) mg/dl Total Bilirubin 0.2 (0.2-1) mg/dl AST 20 (15-37) U/L ALT 37 (12-78) U/L Alkaline Phosphatase 61 (45-117) U/L Troponin I < 0.015 (0-0.045) ng/ml Total Protein 7.9 (6.4-8.2) gm/dl Albumin 3.4 (3.4-5.0) gm/dl Globulin 4.5 H (2.5-4.0) gm/dl Albumin/Globulin Ratio 0.8 L (0.9-2) Lipase 144 (73-393) U/L Imaging Data Attestation: I personally reviewed and interpreted this imaging study as follows: My Impression: CHEST XRAY 1 View Cardiomegaly noted. No pleural effusion or pulmonary consolidation. Radiologist's Impression: Radiology results as stated below per my review and the radiologist's interpretation: CT HEAD Comparison: CT head 11/03/14. No ICH, mass effect, or edema. No skull fracture. Sinuses and mastoid air cells are clear. Radiologist: Balta Gray M.D. Study ready at 02:45 and initial results transmitted at 03:07 ECG Data Attestation: I personally reviewed and interpreted this ECG as follows: Indication: chest pain Rate (beats per minute): 81 Rhythm: normal sinus Findings: no acute ischemic change Comparison ECG Date: from (01/11/19) Change: no significant change Blood Pressure Blood Pressure Findings: Elevated blood pressure Blood Pressure Disposition: further management by hospitalist MDM Narrative The patient is a 73 year old female who presents to the Emergency Room with complaints of intermittent left sided chest pain that started this evening, about 4 hours ago. The patient also had a fullness in the right side of her head with hearing loss. CT scan of the brain was negative EKG was unchanged from an EKG from 2 weeks ago. Troponin was negative. Patient's chest pain did not return. This is the patient's second visit in the past month with similar complaints of left-sided chest discomfort and significant hypertension. The patient has a history of insulin-dependent diabetes with uncontrolled blood sugars. The patie nt will require cardiology evaluation. I discussed the case with the hospitalist service and they will evaluate for further management. Impression & Plan Left-sided chest pain, Uncontrolled hypertension Discharge Plan Visit Data *Final* Discharge Date/Time: 01/29/19 05:57 Chief Complaint: Chest Pain Stated Complaint: CHEST PAIN,ARM PAIN, BACK PAIN ED Provider: Zaynab Jenkins Discharge Problem: Left-sided chest pain, Uncontrolled hypertension Patient Disposition: Admitted As Inpatient Discharge Instructions Interventions: ED Discharge Assessment Last Done: 01/29/19 05:57 The scribe's documentation has been prepared under my direction and personally reviewed by me in its entirety. I confirm that the note above accurately reflects all work, treatment, procedures, and medical decision making performed by me.
[2019-01-29] MEDS: INSULIN ASPART 100 UNITS/ML 3 ML PEN SC SCH ×4 (08:42→20:37)
[2019-01-29] MEDS: LOSARTAN POTASSIUM 50 MG TAB PO SCH (08:42)
[2019-01-29] MEDS: PANTOprazole 40 MG TAB PO SCH (08:43)
[2019-01-29] MEDS: ALLOPURINOL 100 MG TAB PO SCH (08:44)
[2019-01-29] MEDS: INSULIN GLARGINE SOLOSTAR 100 UNITS/ML 3 ML PEN SC SCH ×2 (08:44→20:36)
[2019-01-29] MEDS: ATENOLOL 25 MG TABLET PO SCH ×2 (08:44→20:36)
[2019-01-29 08:49] LABS: Basophils # (auto) 0.03 K/uL (0-0.2); Basophils % (auto) 0.3 %; Eosinophils # (auto) 0.26 K/uL (0-0.5); Eosinophils % (auto) 2.6 %; Hematocrit (blood only) 33.2 % (37-47); Hemoglobin 9.8 g/dL (12.0-16.0); Immature Granulocytes # (auto) 0.06 K/uL (0.00-0.02); Immature Granulocytes % (auto) 0.6 %; Lymphocytes # (auto) 2.16 K/uL (1.2-3.4); Lymphocytes % (auto) 21.4 %; Mean Corpuscular Hgb Conc 29.5 g/dL (32-36); Mean Corpuscular Volume 68.2 fL (80-100); Mean Platelet Volume 9.4 fL (7.4-10.4); Monocytes % (auto) 5.9 %; Neutrophils # (auto) 6.99 K/uL (1.4-6.5); Neutrophils % (auto) 69.2 %; Platelet Count 304 K/uL (130-400); RDW Coefficient of Variation 18.4 % (11.5-14.5); RDW Standard Deviation 45.2 fL (36.4-46.3); Red Blood Count 4.87 M/uL (4.2-5.4)
[2019-01-29 08:58] LABS: Prothrombin Time 10.3 Seconds (9.0-12.0)
[2019-01-29] MEDS ORDERED: AMLODIPINE BESYLATE 5 MG TAB PO SCH (09:00)
[2019-01-29 09:24] LABS: BUN Creatinine Ratio 24.6 (10-20); Blood Urea Nitrogen 18 mg/dl (7-18); Calcium 9.6 mg/dl (8.5-10.1); Carbon Dioxide 26 mmol/L (21-32); Chloride 106 mmol/L (98-107); Creatinine Clr Calc Pharmacy 83.4 ml/min; Est GFR (African American) 93.2; Est GFR (Non-African American) 80.4; Glucose 170 mg/dl (70-99); Potassium 4.2 mmol/L (3.5-5.1); Sodium 139 mmol/L (136-145)
[2019-01-29 09:29] LABS: Troponin I < 0.015 ng/ml (0-0.045)
[2019-01-29 09:46] LABS: Microcytosis Present; Poikilocytosis Present; Polychromasia 1+
[2019-01-29] MEDS ORDERED: PERFLUTREN LIPID MICROSPHERE (DEFINITY) IV ONE (10:43)
[2019-01-29] MEDS: ENOXAPARIN INJ 40 MG/0.4 ML SYR SQ SCH (10:44)
[2019-01-29] MEDS ORDERED: AMLODIPINE BESYLATE 5 MG TAB PO ONE (12:05)
--- NOTE | 2019-01-29 14:25 | Hospitalist Progress Note ---
Date of Service January 29, 2019 Assessment & Plan (1) Left-sided chest pain: atypical pain, sharp, did not radiate, lasted about 45 minutes of note, she did NOT have the pain while in the ED for evaluation EKG without ischemic changes troponin negative echo pending hold off on formal cardiology consult, d/w Dr. Rodriguez of note, BP was markedly elevated, will increase Norvasc (2) Uncontrolled hypertension: continue on Atenolol and Losartan will increase Norvasc to 10mg from 5mg, do this today continue 10mg in the morning will look for better BP control, was 240 systolic on admission likely that elevated BP contributed to chest pain (3) Diabetes mellitus: -Most recent A1c of 9.9 1 month ago -Placed on ISS monitor for hypoglycemia, no episodes (4) CHF (congestive heart failure): -Continue home meds -Last echo showed EF of 60-65% -Has prn lasix, but has not needed in a month per pt. -Trace crackles bilaterally -Euvolemic (5) Sleep apnea: highly recommend she use her CPAP discussed that uncontrolled sleep apnea leads to secondary hypertension (6) PMR (polymyalgia rheumatica): Cont home meds (7) Transient ischemic attack (TIA): Continue home meds (8) HTN (hypertension): (9) Hx of lumpectomy: (10) DVT prophylaxis: Lovenox. Code: full (11) GERD (gastroesophageal reflux disease): -Converted omeprazole to pantoprazole -Followed by GI -Recent EGD/Colonoscopy, +polyp and ?hemangioma per pt Subjective patient without any further chest pain no dyspnea, no diaphoresis, no nausea patient is hungry, will allow her to eat d/w Dr. Rodriguez, hold off on consult as work up is negative for ACS feel that patient has chest pain due to elevated BP reviewed labs, CBC stable, BMP with Cr at baseline and electrolytes stable Review of Systems Review of Systems: All systems reviewed & are unremarkable except as noted in HPI & below Constitutional: no fever, no chills, no sweats, no fatigue and no weakness Respiratory: no cough and no dyspnea Cardiovascular: no chest pain, no syncope and no edema Gastrointestinal: no abdominal pain, no nausea, no vomiting, no constipation and no diarrhea/loose stools Physical Exam Constitutional: WD/WN, vitals as above + obese Eyes: PERRL, conjunctivae normal, anicteric sclerae ENMT: external ear and nose normal, oropharynx normal Neck: trachea midline, no thyromegaly Respiratory: normal respiratory effort, lungs clear to auscultation Cardiovascular: RRR, no murmur, no edema Gastrointestinal (Abdomen): normal bowel sounds, soft, nontender, no hepatosplenomegaly Musculoskeletal: no cyanosis or clubbing, extremities motor strength 5/5 Skin: no rashes, warm and dry Neurologic: patellar DTR's 2+ bilat, sensation intact and PERRL, EOMI, accommodation nl, no face palsy, no dysarthria Psychiatric: A+Ox3, euthymic affect Lymphatic: no cervical or axillary lymphadenopathy Results & Data Vital Signs (Past 12 Hours) Vital Signs Temp Pulse Pulse Resp BP BP Pulse Ox 01/29/19 11:18 36.9 C 71 18 142/69 H 93 01/29/19 07:26 36.9 C 65 18 151/81 H 91 01/29/19 06:46 65 01/29/19 06:13 36.7 C 66 22 177/69 H 94 01/29/19 05:57 65 22 204/81 H 94 01/29/19 05:31 68 24 204/81 H 95 01/29/19 05:01 68 21 187/69 H 95 01/29/19 04:31 69 21 169/62 H 01/29/19 04:23 70 23 155/64 H 94 01/29/19 03:32 70 23 213/83 H 97 01/29/19 03:01 69 18 173/59 H 94 Laboratory Results Laboratory Results - last 24 hr 01/29/19 01/29/19 01/29/19 01:28 01:28 07:26 WBC 10.79 RBC 5.17 Hgb 10.5 L Hct 35.6 L MCV 68.9 L MCH 20.3 L MCHC 29.5 L RDW Std Deviation 46.3 RDW Coeff of Guevara 18.6 H Plt Count 351 MPV 9.8 Immature Gran % (Auto) 0.6 Neut % (Auto) 60.1 Lymph % (Auto) 28.5 Ellis % (Auto) 6.5 Eos % (Auto) 3.8 Baso % (Auto) 0.5 Immature Gran # (Auto) 0.07 H Neut # (Auto) 6.48 Lymph # (Auto) 3.08 Ellis # (Auto) 0.70 H Eos # (Auto) 0.41 Baso # (Auto) 0.05 Absolute Nucleated RBC 0.02 H Nucleated RBC % (auto) 0.2 Polychromasia 1+ Hypochromasia Present Poikilocytosis Anisocytosis Present Microcytosis Present PT INR Sodium 138 Potassium 3.8 Chloride 103 Carbon Dioxide 27 Anion Gap 8.0 BUN 21 H Creatinine 0.90 Est Cr Clr Drug Dosing 68.6 Est GFR ( Amer) 73.5 Est GFR (Non-Af Amer) 63.4 BUN/Creatinine Ratio 23.7 H Glucose 166 H POC Glucose 182 H Calcium 9.6 Total Bilirubin 0.2 AST 20 ALT 37 Alkaline Phosphatase 61 Troponin I < 0.015 Total Protein 7.9 Albumin 3.4 Globulin 4.5 H Albumin/Globulin Ratio 0.8 L Lipase 144 01/29/19 01/29/19 01/29/19 08:37 08:37 08:37 WBC 10.10 RBC 4.87 Hgb 9.8 L Hct 33.2 L MCV 68.2 L MCH 20.1 L MCHC 29.5 L RDW Std Deviation 45.2 RDW Coeff of Guevara 18.4 H Plt Count 304 MPV 9.4 Immature Gran % (Auto) 0.6 Neut % (Auto) 69.2 Lymph % (Auto) 21.4 Ellis % (Auto) 5.9 Eos % (Auto) 2.6 Baso % (Auto) 0.3 Immature Gran # (Auto) 0.06 H Neut # (Auto) 6.99 H Lymph # (Auto) 2.16 Ellis # (Auto) 0.60 H Eos # (Auto) 0.26 Baso # (Auto) 0.03 Absolute Nucleated RBC Nucleated RBC % (auto) Polychromasia 1+ Hypochromasia Poikilocytosis Present Anisocytosis Microcytosis Present PT 10.3 INR 1.0 Sodium 139 Potassium 4.2 Chloride 106 Carbon Dioxide 26 Anion Gap 7.0 BUN 18 Creatinine 0.74 Est Cr Clr Drug Dosing 83.4 Est GFR ( Amer) 93.2 Est GFR (Non-Af Amer) 80.4 BUN/Creatinine Ratio 24.6 H Glucose 170 H POC Glucose Calcium 9.6 Total Bilirubin AST ALT Alkaline Phosphatase Troponin I < 0.015 Total Protein Albumin Globulin Albumin/Globulin Ratio Lipase 01/29/19 01/29/19 11:17 12:47 WBC RBC Hgb Hct MCV MCH MCHC RDW Std Deviation RDW Coeff of Guevara Plt Count MPV Immature Gran % (Auto) Neut % (Auto) Lymph % (Auto) Ellis % (Auto) Eos % (Auto) Baso % (Auto) Immature Gran # (Auto) Neut # (Auto) Lymph # (Auto) Ellis # (Auto) Eos # (Auto) Baso # (Auto) Absolute Nucleated RBC Nucleated RBC % (auto) Polychromasia Hypochromasia Poikilocytosis Anisocytosis Microcytosis PT INR Sodium Potassium Chloride Carbon Dioxide Anion Gap BUN Creatinine Est Cr Clr Drug Dosing Est GFR ( Amer) Est GFR (Non-Af Amer) BUN/Creatinine Ratio Glucose POC Glucose 155 H Calcium Total Bilirubin AST ALT Alkaline Phosphatase Troponin I < 0.015 Total Protein Albumin Globulin Albumin/Globulin Ratio Lipase Medications Administered Current Inpatient Medications Acetaminophen (Tylenol) 650 mg PO Q4H PRN PRN Reason: Pain or Fever Stop: 02/28/19 06:26 Al Hydrox/Mg Hydrox/Simethicone (Maalox) 15 ml PO Q4H PRN PRN Reason: Dyspepsia Stop: 02/28/19 06:26 Allopurinol (Zyloprim) 100 mg PO QAM [facility] Stop: 02/28/19 08:59 Last Admin: 01/29/19 08:44 Dose: 100 mg Documented by: Amlodipine Besylate (Norvasc) 10 mg PO QAM [facility] Stop: 03/01/19 08:59 Atenolol (Tenormin) 25 mg PO BID [facility] Stop: 02/28/19 08:59 Last Admin: 01/29/19 08:44 Dose: 25 mg Documented by: Dextrose (Dextrose 50%) 25 - 50 ml IV UD PRN; Protocol PRN Reason: Hypoglycemia Protocol Stop: 02/28/19 06:26 Enoxaparin Sodium (Lovenox) 40 mg SQ Q24H [facility] Stop: 02/28/19 09:59 Last Admin: 01/29/19 10:44 Dose: 40 mg Documented by: Glucagon (Glucagen) 1 mg SQ UD PRN; Protocol PRN Reason: Hypoglycemia Protocol Stop: 02/28/19 06:26 Glucose (Dex4 Glucose) 4 - 8 tabs PO UD PRN; Protocol PRN Reason: Hypoglycemia Protocol Stop: 02/28/19 06:26 Glucose (Glucose 40%) 15 - 30 gm PO UD PRN; Protocol PRN Reason: Hypoglycemia Protocol Stop: 02/28/19 06:26 Insulin Aspart (Novolog Flexpen) 0 units SC ACHS [facility] Stop: 02/28/19 07:29 Last Admin: 01/29/19 13:31 Dose: 8 units Documented by: Insulin Glargine (Lantus Solostar Pen) 18 units SC BID [facility] Stop: 02/28/19 08:59 Last Admin: 01/29/19 08:44 Dose: 18 units Documented by: Losartan Potassium (Cozaar) 100 mg PO QAM [facility] Stop: 02/28/19 08:59 Last Admin: 01/29/19 08:42 Dose: 100 mg Documented by: Magnesium Hydroxide (Milk Of Magnesia) 30 ml PO Q12H PRN PRN Reason: Constipation Stop: 02/28/19 06:26 Metoprolol Tartrate (Lopressor) 5 mg IV Q4H PRN PRN Reason: Hypertension Stop: 02/28/19 06:26 Miscellaneous (Carbohydrates For Hypoglycemia) 15 - 30 gm PO UD PRN PRN Reason: Hypoglycemia Treatment Stop: 02/28/19 06:26 Morphine Sulfate (Morphine Sulfate) 2 mg IV Q30M PRN PRN Reason: Chest Pain Stop: 02/12/19 06:26 Nitroglycerin (Nitrostat) 0.4 mg SL UD PRN PRN Reason: Chest Pain Stop: 02/28/19 06:26 Ondansetron HCl (Zofran) 4 mg IV Q6H PRN PRN Reason: Nausea Stop: 02/28/19 06:26 Pantoprazole Sodium (Protonix) 40 mg PO QAM [facility] Stop: 02/28/19 08:59 Last Admin: 01/29/19 08:43 Dose: 40 mg Documented by: Polyethylene Glycol (Miralax Powder Packet) 17 gm PO DAILY PRN PRN Reason: Constipation Stop: 02/28/19 06:26 PG Care Time/CCT Total # of Minutes Spent Total Time Spent with Patient: Total time spent is greater than 50% in coordination of care (as documented) at patient's floor/unit and/or counseling patient: (1) CHF (congestive heart failure) Heart failure chronicity: unspecified Heart failure type: unspecified Qualified Code(s): I50.9 - Heart failure, unspecified (2) Sleep apnea Sleep apnea type: obstructive Qualified Code(s): G47.33 - Obstructive sleep apnea (adult) (pediatric)
[2019-01-30 07:32] LABS: Basophils # (auto) 0.05 K/uL (0-0.2); Basophils % (auto) 0.5 %; Eosinophils # (auto) 0.39 K/uL (0-0.5); Eosinophils % (auto) 4.1 %; Hematocrit (blood only) 35.7 % (37-47); Hemoglobin 10.5 g/dL (12.0-16.0); Immature Granulocytes # (auto) 0.05 K/uL (0.00-0.02); Immature Granulocytes % (auto) 0.5 %; Lymphocytes # (auto) 2.15 K/uL (1.2-3.4); Lymphocytes % (auto) 22.8 %; Mean Corpuscular Hgb Conc 29.4 g/dL (32-36); Mean Corpuscular Volume 68.4 fL (80-100); Mean Platelet Volume 9.8 fL (7.4-10.4); Monocytes # (auto) 0.64 K/uL (0.11-0.59); Monocytes % (auto) 6.8 %; Neutrophils # (auto) 6.13 K/uL (1.4-6.5); Neutrophils % (auto) 65.3 %; Platelet Count 327 K/uL (130-400); RDW Coefficient of Variation 18.5 % (11.5-14.5); RDW Standard Deviation 45.9 fL (36.4-46.3); Red Blood Count 5.22 M/uL (4.2-5.4); White Blood Count 9.41 K/uL (4.8-10.8)
[2019-01-30 07:59] LABS: Microcytosis Present
[2019-01-30] MEDS: ATENOLOL 25 MG TABLET PO SCH ×2 (08:08→20:29)
[2019-01-30] MEDS: PANTOprazole 40 MG TAB PO SCH (08:09)
[2019-01-30] MEDS: ALLOPURINOL 100 MG TAB PO SCH (08:09)
[2019-01-30] MEDS: AMLODIPINE BESYLATE 5 MG TAB PO SCH (08:09)
[2019-01-30] MEDS: INSULIN GLARGINE SOLOSTAR 100 UNITS/ML 3 ML PEN SC SCH ×2 (08:09→20:27)
[2019-01-30] MEDS: LOSARTAN POTASSIUM 50 MG TAB PO SCH (08:09)
[2019-01-30] MEDS: INSULIN ASPART 100 UNITS/ML 3 ML PEN SC SCH ×4 (08:10→20:27)
[2019-01-30 08:13] LABS: BUN Creatinine Ratio 25.8 (10-20); Calcium 9.1 mg/dl (8.5-10.1); Creatinine Clr Calc Pharmacy 72.8 ml/min; Est GFR (African American) 78.8
[2019-01-30] MEDS: ENOXAPARIN INJ 40 MG/0.4 ML SYR SQ SCH (10:16)
--- NOTE | 2019-01-30 13:08 | Hospitalist Progress Note ---
Date of Service January 30, 2019 Assessment & Plan (1) Left-sided chest pain: atypical pain, sharp, did not radiate, lasted about 45 minutes of note, she did NOT have the pain while in the ED for evaluation EKG without ischemic changes repeat EKG today without ischemic changes troponin negative x 3 sets of note, BP was markedly elevated at 240 systolic in the ED increased Norvasc to 10mg daily on 01/29, improved BP (2) Abnormal echocardiogram: abnormal doppler signal in the atrium Dr. Figueroa recommends GLADYS tomorrow and patient is agreeable make NPO after midnight (3) Uncontrolled hypertension: continue on Atenolol and Losartan increased Norvasc to 10mg from 5mg on 01/29 BP better controlled she reports that in the office her BP typically is 140-150 systolic (4) Diabetes mellitus: -Most recent A1c of 9.9 1 month ago -Placed on ISS monitor for hypoglycemia, no episodes (5) CHF (congestive heart failure): -Continue home meds -Last echo showed EF of 60-65% -Has prn lasix, but has not needed in a month per pt. -Euvolemic (6) Sleep apnea: highly recommend she use her CPAP discussed that uncontrolled sleep apnea leads to secondary hypertension (7) PMR (polymyalgia rheumatica): Cont home meds (8) Transient ischemic attack (TIA): Continue home meds (9) Hx of lumpectomy: (10) GERD (gastroesophageal reflux disease): -Converted omeprazole to pantoprazole -Followed by GI -Recent EGD/Colonoscopy, +polyp and ?hemangioma per pt (11) DVT prophylaxis: Lovenox. Code: full Plan: GLADYS tomorrow, if normal she can go home, d/w Dr. Figueroa after the procedure note that patient should be d/c on Norvasc 10mg, this is increased from 5mg Subjective patient feels well admits to 5 episodes of a slight, sharp chest pain, that would last a few seconds certainly nothing that sounds like anginal pain BP better she says that even in the office her BP runs 140-160 systolic last evening discussed echo findings with Dr. Figueroa, described an abnormal doppler signal in the [facility] likely pulm venous flow but he wants to perform a GLADYS to look for any ab normality in the aorta patient agrees to the GLADYS will make NPO after midnight Dr. Figueroa aware and plans for the procedure no other symptoms, eating well, denies dyspnea, fever/chills, abdominal symptoms Review of Systems Review of Systems: All systems reviewed & are unremarkable except as noted in HPI & below Physical Exam Constitutional: WD/WN, vitals as above + obese Eyes: PERRL, conjunctivae normal, anicteric sclerae ENMT: external ear and nose normal, oropharynx normal Neck: trachea midline, no thyromegaly Respiratory: normal respiratory effort, lungs clear to auscultation Cardiovascular: RRR, no murmur, no edema Gastrointestinal (Abdomen): normal bowel sounds, soft, nontender, no hepatosplenomegaly Musculoskeletal: no cyanosis or clubbing, extremities motor strength 5/5 Skin: no rashes, warm and dry Neurologic: patellar DTR's 2+ bilat, sensation intact and PERRL, EOMI, accommodation nl, no face palsy, no dysarthria Psychiatric: A+Ox3, euthymic affect Lymphatic: no cervical or axillary lymphadenopathy Results & Data Vital Signs (Past 12 Hours) Vital Signs Temp Pulse Resp BP Pulse Ox 01/30/19 11:09 36.5 C 57 L 16 141/77 H 90 01/30/19 07:06 36.4 C L 62 18 162/76 H 93 01/30/19 04:20 36.5 C 62 16 167/63 H 92 Laboratory Results Laboratory Results - last 24 hr 01/29/19 01/29/19 01/29/19 12:47 16:15 20:07 WBC RBC Hgb Hct MCV MCH MCHC RDW Std Deviation RDW Coeff of Guevara Plt Count MPV Immature Gran % (Auto) Neut % (Auto) Lymph % (Auto) Dubois % (Auto) Eos % (Auto) Baso % (Auto) Immature Gran # (Auto) Neut # (Auto) Lymph # (Auto) Dubois # (Auto) Eos # (Auto) Baso # (Auto) Microcytosis Sodium Potassium Chloride Carbon Dioxide Anion Gap BUN Creatinine Est Cr Clr Drug Dosing Est GFR ( Amer) Est GFR (Non-Af Amer) BUN/Creatinine Ratio Glucose POC Glucose 241 H 317 H* Calcium Troponin I < 0.015 01/29/19 01/30/19 01/30/19 20:09 07:10 07:17 WBC 9.41 RBC 5.22 Hgb 10.5 L Hct 35.7 L MCV 68.4 L MCH 20.1 L MCHC 29.4 L RDW Std Deviation 45.9 RDW Coeff of Guevara 18.5 H Plt Count 327 MPV 9.8 Immature Gran % (Auto) 0.5 Neut % (Auto) 65.3 Lymph % (Auto) 22.8 Dubois % (Auto) 6.8 Eos % (Auto) 4.1 Baso % (Auto) 0.5 Immature Gran # (Auto) 0.05 H Neut # (Auto) 6.13 Lymph # (Auto) 2.15 Dubois # (Auto) 0.64 H Eos # (Auto) 0.39 Baso # (Auto) 0.05 Microcytosis Present Sodium Potassium Chloride Carbon Dioxide Anion Gap BUN Creatinine Est Cr Clr Drug Dosing Est GFR ( Amer) Est GFR (Non-Af Amer) BUN/Creatinine Ratio Glucose POC Glucose 303 H* 226 H Calcium Troponin I 01/30/19 01/30/19 01/30/19 07:17 11:04 11:06 WBC RBC Hgb Hct MCV MCH MCHC RDW Std Deviation RDW Coeff of Guevara Plt Count MPV Immature Gran % (Auto) Neut % (Auto) Lymph % (Auto) Dubois % (Auto) Eos % (Auto) Baso % (Auto) Immature Gran # (Auto) Neut # (Auto) Lymph # (Auto) Dubois # (Auto) Eos # (Auto) Baso # (Auto) Microcytosis Sodium 136 Potassium 4.0 Chloride 103 Carbon Dioxide 26 Anion Gap 7.0 BUN 22 H Creatinine 0.85 Est Cr Clr Drug Dosing 72.8 Est GFR ( Amer) 78.8 Est GFR (Non-Af Amer) 68.0 BUN/Creatinine Ratio 25.8 H Glucose 225 H POC Glucose 338 H* 353 H* Calcium 9.1 Troponin I 01/30/19 12:04 WBC RBC Hgb Hct MCV MCH MCHC RDW Std Deviation RDW Coeff of Guevara Plt Count MPV Immature Gran % (Auto) Neut % (Auto) Lymph % (Auto) Dubois % (Auto) Eos % (Auto) Baso % (Auto) Immature Gran # (Auto) Neut # (Auto) Lymph # (Auto) Dubois # (Auto) Eos # (Auto) Baso # (Auto) Microcytosis Sodium Potassium Chloride Carbon Dioxide Anion Gap BUN Creatinine Est Cr Clr Drug Dosing Est GFR ( Amer) Est GFR (Non-Af Amer) BUN/Creatinine Ratio Glucose POC Glucose 269 H Calcium Troponin I Medications Administered Current Inpatient Medications Acetaminophen (Tylenol) 650 mg PO Q4H PRN PRN Reason: Pain or Fever Stop: 02/28/19 06:26 Al Hydrox/Mg Hydrox/Simethicone (Maalox) 15 ml PO Q4H PRN PRN Reason: Dyspepsia Stop: 02/28/19 06:26 Allopurinol (Zyloprim) 100 mg PO QAM [facility] Stop: 02/28/19 08:59 Last Admin: 01/30/19 08:09 Dose: 100 mg Documented by: Amlodipine Besylate (Norvasc) 10 mg PO QAM [facility] Stop: 03/01/19 08:59 Last Admin: 01/30/19 08:09 Dose: 10 mg Documented by: Atenolol (Tenormin) 25 mg PO BID [facility] Stop: 02/28/19 08:59 Last Admin: 01/30/19 08:08 Dose: 25 mg Documented by: Dextrose (Dextrose 50%) 25 - 50 ml IV UD PRN; Protocol PRN Reason: Hypoglycemia Protocol Stop: 02/28/19 06:26 Enoxaparin Sodium (Lovenox) 40 mg SQ Q24H [facility] Stop: 02/28/19 09:59 Last Admin: 01/30/19 10:16 Dose: Not Given Documented by: Glucagon (Glucagen) 1 mg SQ UD PRN; Protocol PRN Reason: Hypoglycemia Protocol Stop: 02/28/19 06:26 Glucose (Dex4 Glucose) 4 - 8 tabs PO UD PRN; Protocol PRN Reason: Hypoglycemia Protocol Stop: 02/28/19 06:26 Glucose (Glucose 40%) 15 - 30 gm PO UD PRN; Protocol PRN Reason: Hypoglycemia Protocol Stop: 02/28/19 06:26 Insulin Aspart (Novolog Flexpen) 0 units SC ACHS [facility] Stop: 02/28/19 07:29 Last Admin: 01/30/19 11:35 Dose: 16 units Documented by: Insulin Glargine (Lantus Solostar Pen) 18 units SC BID [facility] Stop: 02/28/19 08:59 Last Admin: 01/30/19 08:09 Dose: 18 units Documented by: Losartan Potassium (Cozaar) 100 mg PO QAM [facility] Stop: 02/28/19 08:59 Last Admin: 01/30/19 08:09 Dose: 100 mg Documented by: Magnesium Hydroxide (Milk Of Magnesia) 30 ml PO Q12H PRN PRN Reason: Constipation Stop: 02/28/19 06:26 Metoprolol Tartrate (Lopressor) 5 mg IV Q4H PRN PRN Reason: Hypertension Stop: 02/28/19 06:26 Miscellaneous (Carbohydrates For Hypoglycemia) 15 - 30 gm PO UD PRN PRN Reason: Hypoglycemia Treatment Stop: 02/28/19 06:26 Morphine Sulfate (Morphine Sulfate) 2 mg IV Q30M PRN PRN Reason: Chest Pain Stop: 02/12/19 06:26 Nitroglycerin (Nitrostat) 0.4 mg SL UD PRN PRN Reason: Chest Pain Stop: 02/28/19 06:26 Ondansetron HCl (Zofran) 4 mg IV Q6H PRN PRN Reason: Nausea Stop: 02/28/19 06:26 Pantoprazole Sodium (Protonix) 40 mg PO QAM [facility] Stop: 02/28/19 08:59 Last Admin: 01/30/19 08:09 Dose: 40 mg Documented by: Polyethylene Glycol (Miralax Powder Packet) 17 gm PO DAILY PRN PRN Reason: Constipation Stop: 02/28/19 06:26 PG Care Time/CCT Total # of Minutes Spent Total Time Spent: 45 Total Time Spent with Patient: Total time spent is greater than 50% in coordination of care (as documented) at patient's floor/unit and/or counseling patient: (1) CHF (congestive heart failure) Heart failure chronicity: unspecified Heart failure type: unspecified Qualified Code(s): I50.9 - Heart failure, unspecified (2) Sleep apnea Sleep apnea type: obstructive Qualified Code(s): G47.33 - Obstructive sleep apnea (adult) (pediatric)
[2019-01-31] MEDS: INSULIN ASPART 100 UNITS/ML 3 ML PEN SC SCH (07:47)
[2019-01-31] MEDS ORDERED: MIDAZOLAM HCL 1 MG/ML 2ML VIAL ONE (08:03)
[2019-01-31] MEDS ORDERED: fentaNYL citrate 100 MCG/2 ML VIAL ONE (08:03)
[2019-01-31] MEDS ORDERED: BENZOCAIN/TETRACA/BUTAM SPRAY 200 APPLN/20 GM SPRY EXT ONE (08:27)
[2019-01-31] MEDS ORDERED: CANNULA ONE (08:27)
--- NOTE | 2019-01-31 09:02 | Post Operative Brief Note ---
Cardiology Brief Post Op Date of Surgery January 31, 2019 Pre & Post Diagnosis Operation Date: 01/31/19 08:30 <No data on this case meets the specified criteria> Procedure GLADYS [employer] Tester Javid Figueroa MD Survey Research Analyst none Estimated Blood Loss 0 Findings See Below Normal aortic valve. No dissection Complications none Disposition Accompanied Patient To Recovery: No Disposition: PCU Overlapping Procedure I was immediately available: during the entire case.
[2019-01-31] MEDS: ATENOLOL 25 MG TABLET PO SCH (10:02)
[2019-01-31] MEDS: AMLODIPINE BESYLATE 5 MG TAB PO SCH (10:02)
[2019-01-31] MEDS: PANTOprazole 40 MG TAB PO SCH (10:02)
[2019-01-31] MEDS: LOSARTAN POTASSIUM 50 MG TAB PO SCH (10:02)
[2019-01-31] MEDS: INSULIN GLARGINE SOLOSTAR 100 UNITS/ML 3 ML PEN SC SCH (10:02)
[2019-01-31] MEDS: ALLOPURINOL 100 MG TAB PO SCH (10:02)
[2019-01-31] MEDS: ENOXAPARIN INJ 40 MG/0.4 ML SYR SQ SCH (10:03)
--- NOTE | 2019-01-31 12:12 | Discharge Summary ---
Date of Service January 31, 2019 Admission HPI Per Admitting Provider Patient is a 73 yo F PMH uncontrolled T2DM, HTN, PMR, diastolic CHF, TIA x2, chronic anemia 2/2 GI blood loss, GERD, Breast Cancer, nephrolithiasis, LYNDA not on CPAP who presents with acute substernal chest pain. She notes the pain woke her up around midnight and radiated to her back, neck and Left arm. She did not take anything for the pain. The episode resolved on its own after 45 minutes. Was a/w lightheadedness, unsteadiness, and nausea. Denied diaphoresis/palpitations/change with exertion. Notes some "twinges" of pain since original episode resolved. Also reports that yesterday she had an acute episode of pain in her head which descended into her neck and resulted in ear ringing. No fam h/o ASCVD. Patient notes she has been having similar episodes for the past 2 weeks, but none that were as severe or lasted as long as this one. She has seen cardiology for atypical CP, most recently 1 month ago, and was told symptoms were unlikely to be cardiac in nature; she was scheduled for a dobutamine stress test in March 2019. She reports she had been checking her BPs at home yesterday and noted they were normal, with highest SBP of 165. Had cardiac cath 6-7 years ago and was told it was normal. In the ER, she was found to be hypertensive with SBP in 230s. CT head negative. Trop negative. No acute EKG changes. Principal Diagnosis Atypical chest pain, hypertensive urgency Discharge Exam Constitutional WD/WN, vitals as above + morbidly obese Eyes PERRL, conjunctivae normal, anicteric sclerae ENMT external ear and nose normal, oropharynx normal Neck trachea midline, no thyromegaly Respiratory normal respiratory effort, lungs clear to auscultation Cardiovascular RRR, no murmur, no edema Vessels: no JVD and no carotid bruit Extremities: no edema Gastrointestinal (Abdomen) normal bowel sounds, soft, nontender, no hepatosplenomegaly Musculoskeletal Extremities: extremities normal to inspection; no cyanosis and no clubbing Skin no rashes, warm and dry Neurologic moves all extremities and awake; no focal motor deficits Psychiatric A+Ox3, euthymic affect Discharge Data Allergies Allergy/AdvReac Type Severity Reaction Status Date / Time Iodinated Contrast- Oral and Allergy Severe ANAPHYLAXIS Verified 01/29/19 02:18 IV Dye /CONVULSION S sumatriptan Allergy Severe SOB,INCREASED Verified 01/29/19 02:18 HEARTRATE Bactrim Allergy Intermediate hives Verified 03/15/18 10:08 Cipro Allergy Intermediate hives Verified 03/15/18 10:08 ciprofloxacin Allergy Intermediate hives Verified 01/29/19 02:18 metronidazole Allergy Intermediate HIVES Verified 01/29/19 02:18 Quinolones Allergy Intermediate HIVES Verified 01/29/19 02:18 sulfamethoxazole Allergy Intermediate hives Verified 01/29/19 02:18 trimethoprim Allergy Intermediate hives Verified 01/29/19 02:18 adhesive AdvReac Severe SEVERE Verified 01/29/19 02:18 BURNING BLISTERS furosemide [From Lasix] AdvReac Mild Cramping Verified 01/29/19 02:18 of the Muscles tramadol AdvReac Mild FATIGUE Verified 01/29/19 02:18 Consultations None Procedures Performed Operation Date: 01/31/19 08:30 Actual Procedures p Transesophageal Echo(Not Applicable) - Bobby Figueroa MD Ordered Studies 01/29/19 01:55 CT head/brain wo con Urgent Chest x-ray Hospital Course (1) Left-sided chest pain: Presented with atypical pain, sharp, did not radiate, lasted about 45 minutes. She has had multiple episodes of this, usually lasting 1 to 2 minutes and mostly at nighttime over the last 2 months. She came to the hospital when it lasted for 45 minutes. of note, she did NOT have the pain while in the ED for evaluation EKG without ischemic changes repeat EKG again without ischemic changes troponin negative x 3 sets of note, BP was markedly elevated at 240 systolic in the ED increased Norvasc to 10mg daily on 01/29, improved BP Echocardiogram both transthoracic and transesophageal without any wall motion abnormalities and with preserved EF. Chest pain is noncardiac in nature and is most likely GI related. -Suggest she increase her omeprazole to twice daily dosing x2 weeks and take Tums as needed -Follow-up with PCP (2) Abnormal echocardiogram: abnormal doppler signal in the atrium Dr. Figueroa recommended GLADSY and this was normal, there was no evidence of dissection of the aorta or any other significant abnormalities (3) Uncontrolled hypertension: Blood pressure 240 systolic on admission Now much improved Continue on Atenolol and Losartan from home-home med rec here states atenolol is 25 mg p.o. twice daily, however it appears she filled the 50 mg dosing recently as an outpatient. On the 25 mg dose, her heart rate has been in the 50s and would suggest that she remain at that dose currently increased Norvasc to 10mg from 5mg on 01/29 and had significant improvement Patient reports her blood pressures are consistently in the 150s to 160s over 80s to 90s at home Stressed the need for improved blood pressure control, low-sodium diet, watching her fluid intake, increasing exercise and weight loss. Also advised repeat sleep study. (4) Diabetes mellitus: -Most recent A1c of 9.9 one month ago-severely uncontrolled diabetes -Again, stressed importance of low carbohydrate diet and weight loss -Restart home metformin and Jardiance as well as insulin 70/30 upon casuvqevm-yudifc-cd closely with PCP for improved control (5) CHF (congestive heart failure): Chronic diastolic CHF. Her weight is up here a couple of pounds from previous Not hypoxic, no rales on examination, no pedal edema. -Continue home meds -echo showed EF of 60-65% -Has prn lasix, but has not needed in a month per pt. -Continue daily weights at home and low-sodium diet (6) Sleep apnea: Diagnosis having mild LYNDA on sleep study approximately 7 years ago-did not use the mask and has since returned. discussed that uncontrolled sleep apnea leads to secondary hypertension-suggest she have a repeat sleep study (7) PMR (polymyalgia rheumatica): Previously was on chronic steroids which is now been weaned off, also no longer on methotrexate (8) Transient ischemic attack (TIA): Has a history of this I do not see that she is on any antiplatelet therapy which may have been likely due to her previous long history of GI bleeding She is also notably not on a statin drug-it is not listed as an allergy and I do not know why she is not on this -Defer to PCP to add statin on if patient is willing (9) Hx of lumpectomy: Has a history of breast cancer noted in the chart (10) GERD (gastroesophageal reflux disease): -Increase omeprazole to twice daily as above -Followed by GI -Recent EGD/Colonoscopy, +polyp and ?hemangioma per pt -Continue follow-up with GI (11) Pulmonary nodules: Noted on CT of the chest from 04/2018 which significantly improved on CT of the chest in 07/2018 -Needs continued follow-up imaging of the chest as an outpatient (12) Anemia: Hemoglobin here at 10.5 and severely microcytic Has a long history of GI bleeding and follows closely with GI and colorectal surgery No active bleeding here -Follow with PCP and should receive either IV iron or p.o. iron as can tolerate as an outpatient (13) DVT prophylaxis: Lovenox Disposition-stable for discharge to home Total Time Total Time Spent Total Time Spent (In Minutes): Greater than 30 minutes Total Time Includes: Examination of the Patient, Discharge Planning, Medication Reconciliation and Communication With Other Providers (Cardiology) Discharge Plan Discharge Items Patient Disposition: Home - Self-Care Reason For Visit: CHEST PAIN Discharge Diagnosis: Chest pain, hypertensive urgency Condition: Good Discharge Goals: Decrease discomfort, Diagnostic testing, Improve disease control, Learn about illness and Therapeutic intervention Activity: Resume your previous activity Lifting: Gradually increase as tolerated Bathing: No limitations Exercise/Sports: Gradually increase as tolerated Driving/Machine Use: No limitations Non-emergency contact: Primary Care Provider Call non-emergency contact if: you have any medication questions, your symptoms worsen, your pain is not controlled, your pain is worsening, your pain is unusual for you and your pain is concerning for you Follow-up/Referrals: Lucila Rojas MD [Primary Care Provider] - 02/08/19 2:30 pm (Please, follow up at Dr. Rojas's office with her associate, Dr. Villagomez, on ThursdayFebruary 08 at 2:30 pm. *If you need to change this appointment, call their office at [phone].) Diet: Carb Consistent or DM2, Heart Healthy and Low Sodium (2gm) Fluids: 1800ml (7 cups) Addtl Provider Instructions: You were admitted for chest pains that were atypical in nature and not related to your heart. Try increasing your omeprazole at home to twice daily for 2 weeks and see if this helps with the pain. Please continue to follow a low- sodium and low carbohydrate diet and follow your weights on a daily basis. Your blood pressure was severely uncontrolled upon admission and this is now improved with increasing your amlodipine dose to 10 mg. Please continue to take your Lasix as needed for weight gain or leg swelling. Please follow-up with your primary care physician as scheduled for you. It is very important that you work on losing weight, eating a low calorie and low salt diet, and increasing your exercise level. I would also suggest that you have a repeat sleep study to see if your sleep apnea has worsened since it was last checked 7 years ago-if so, it would be important for you to go back on the CPAP mask. Prescriptions: New amlodipine 10 mg tablet 10 mg PO DAILY Qty: 30 RF: 0 furosemide [Lasix] 40 mg tablet 40 mg PO DAILY PRN (Reason: weight gain or leg swelling) Qty: 30 RF: 0 Continued atenolol 25 mg Tablet 25 mg PO BID RF: 0 Novolin 70/30 U-100 Insulin 100 unit/mL (70-30) Suspension 100 unit SUBCUT AMPM RF: 0 metformin 1,000 mg Tablet 1,000 mg PO BID RF: 0 losartan 100 mg Tablet 100 mg PO QAM RF: 0 allopurinol 100 mg tablet 100 mg PO QAM RF: 0 Jardiance 25 mg tablet 25 mg PO DAILY RF: 0 Changed omeprazole 40 mg Capsule,Delayed Release(Dr/Ec) 40 mg PO BID Qty: 0 RF: 0 Discontinued amlodipine 5 mg Tablet 5 mg PO QAM RF: 0 Stand-Alone Forms: Call Back Authorization, [facility] Discharge Orders: Discharge Order (Routine); Ordered 01/31/19 Ordered By: Ginna Huynh Admission Data Admit Date/Time: 01/29/19 05:29 Attending Provider: Ginna Huynh Admit Provider: Milla Taylor Primary Care Provider: Lucila Rojas Other Providers: Erasmo Bazan Service: Telemetry Other Pending Studies at Discharge: No
== END 2019-01-31 12:20 | disposition home or self-care (01) | DRG 305 ==
LOC: ED 01:06 → SUATTDRO 05:29 → 2S 05:29
PROC: CLS.TEE (2019-01-31 08:30)

== ENCOUNTER 2021-05-03 16:39 | Observation (INO) ==
[2021-05-03 17:39] LABS: Basophils # (auto) 0.01 K/uL (0-0.2); Basophils % (auto) 0.1 %; Eosinophils % (auto) 3.3 %; Hematocrit (blood only) 37.1 % (37-47); Hemoglobin 11.6 g/dL (12.0-16.0); Immature Granulocytes # (auto) 0.11 K/uL (0.00-0.02); Immature Granulocytes % (auto) 0.9 %; Lymphocytes # (auto) 2.01 K/uL (1.2-3.4); Lymphocytes % (auto) 16.8 %; Mean Corpuscular Hgb Conc 31.3 g/dL (32-36); Mean Platelet Volume 10.3 fL (7.4-10.4); Monocytes # (auto) 0.76 K/uL (0.11-0.59); Monocytes % (auto) 6.3 %; Neutrophils # (auto) 8.69 K/uL (1.4-6.5); Neutrophils % (auto) 72.6 %; Platelet Count 349 K/uL (130-400); RDW Coefficient of Variation 15.8 % (11.5-14.5); RDW Standard Deviation 47.5 fL (36.4-46.3); Red Blood Count 4.47 M/uL (4.2-5.4); White Blood Count 11.98 K/uL (4.8-10.8)
[2021-05-03 18:05] LABS: Albumin Level 3.3 gm/dl (3.4-5.0); BUN Creatinine Ratio 20.6 (10-20); Calcium 9.5 mg/dl (8.5-10.1); Creatinine Clr Calc Pharmacy 53.6 ml/min; Est GFR (African American) 53.9 ml/min; Est GFR (Non-African American) 46.5 ml/min; Potassium 4.5 mmol/L (3.5-5.1)
[2021-05-03 18:08] LABS: Albumin Globulin Ratio 0.8 (0.9-2); Bilirubin,Total 0.3 mg/dl (0.2-1); Globulin 4.2 gm/dl (2.5-4.0); Total Protein 7.5 gm/dl (6.4-8.2)
[2021-05-03] MEDS ORDERED: carvediloL 25 MG TAB PO ONE (19:39)
[2021-05-03] MEDS ORDERED: amLODIPine BESYLATE 5 MG TAB PO ONE (19:39)
--- NOTE | 2021-05-03 19:40 | CT Scan Report ---
CT OF THE HEAD WITHOUT CONTRAST CLINICAL HISTORY: Hypertension. Dizziness. COMPARISON STUDY: Head CT January 29, 2019. MRI of the brain November 04, 2019. CT DOSE: 614.27 mGy.cm TECHNIQUE: Helical axial images of the head were obtained without IV contrast. Automated exposure con trol was utilized for the study. A dose lowering technique was utilized adhering to the principles o f ALARA. FINDINGS: No acute intracranial hemorrhage, midline shift or mass effect is present. The ventricular system is unremarkable. The basal cisterns are patent. No extra-axial collections are present. There are no findings to suggest acute dural sinus thrombosis or acute territorial infarct. No significant calvarial abnormalities are present. Visualized portions of the sinuses and mastoid air cells are lisa ar. IMPRESSION: No acute intracranial findings. ACT 112: Negative or not required by law. Electronically signed by: Jayy Rojas M.D. 05/03/2021 7:39 PM
[2021-05-03] MEDS ORDERED: hydrALAZINE HCL 20 MG/ML VIAL IV ONE (19:41)
--- NOTE | 2021-05-03 20:27 | XRay Report ---
XR chest 1V portable CLINICAL HISTORY: lightheaded, HTN, bradycardia COMPARISON STUDY: Chest CT March 28, 2020. Chest radiograph January 29, 2019 per FINDINGS: There is no pneumothorax or pleural effusion. Mild elevation the right hemidiaphragm is unc hanged. Cardiomediastinal silhouette is stable. Linear left midlung opacity is unchanged. This favors scarring or atelectasis. There is no evidence for overt pulmonary edema. IMPRESSION: No acute cardiopulmonary findings. No significant change in appearance of the chest. ACT 112: Negative or not required by law. Electronically signed by: Jayy Rojas M.D. 05/03/2021 8:26 PM
[2021-05-03 20:39] LABS: Lyme Ab IgG w/WB Rflx Negative (Negative); Lyme Ab IgM w/WB Rflx Negative (Negative)
--- NOTE | 2021-05-03 21:32 | History & Physical Report ---
Date of Service May 03, 2021 Assessment & Plan (1) Left-sided chest pain: Plan: Left-sided chest pain/hypertension/CHF- The patient will be admitted to telemetry for serial cardiac enzymes, serial EKG's, cardiac rhythm monitoring and a 2-D echocardiogram with Dopplers. Continue amlodipine, carvedilol, losartan and furosemide. Hydralazine 10 mg IV every 4 hours as needed systolic blood pressure greater than 160 (2) Chronic diastolic CHF (congestive heart failure): Plan: See above (3) HTN (hypertension): Plan: See above (4) Type 2 diabetes mellitus: Plan: Hold Metformin Decrease 70/30 mix from 50 mg 3 times daily to twice daily Place on Accu-Cheks before meals and at bedtime with NovoLog coverage per scale (5) PMR (polymyalgia rheumatica): Plan: PMR/fibromyalgia- Continue her usual medications of Celebrex, and cyclobenzaprine (6) Fibromyalgia: Plan: See above (7) GERD (gastroesophageal reflux disease): Plan: Continue pantoprazole History of Present Illness Chief Complaint: The patient presents to the emergency department with complaint of headaches, chest discomfort, generally not feeling well with myalgias and arthralgias associated fibromyalgia, and elevated blood pressure at home. Primary Care Provider: Lucila Rojas MD The patient is a 75-year-old female with a past medical history including chronic diastolic CHF, overactive bladder, fibromyalgia, TIAs, iron deficiency anemia, spinal stenosis, SNHL, GI bleed, diabetes mellitus type 2, hypertension, PMR, GERD, sleep apnea and osteoarthritis. She presents with symptoms as noted above. She reports that she been taking her blood pressure as directed. She denies any issues with excessive salt intake. She does report that her exercise level is very low. Allergies Allergy/AdvReac Type Severity Reaction Status Date / Time Iodinated Contrast Media Allergy Severe ANAPHYLAXIS Verified 05/03/21 17:40 /CONVULSION S sumatriptan Allergy Severe SOB,INCREASED Verified 05/03/21 17:40 HEARTRATE Bactrim Allergy Intermediate hives Verified 03/15/18 10:08 ciprofloxacin Allergy Intermediate hives Verified 05/03/21 17:40 metronidazole Allergy Intermediate HIVES Verified 05/03/21 17:40 sulfamethoxazole Allergy Intermediate hives Verified 05/03/21 17:40 trimethoprim Allergy Intermediate hives Verified 05/03/21 17:40 adhesive AdvReac Severe SEVERE Verified 05/03/21 17:40 BURNING BLISTERS tramadol AdvReac Mild FATIGUE Verified 05/03/21 17:40 Home Medications Medication Instructions Recorded Confirmed Type lancets 30 gauge (OneTouch Delica #100 ea 08/25/19 11/30/20 Rx Lancets) aspirin 81 mg tablet,delayed 81 mg PO DAILY 02/27/20 05/03/21 History release (Adult Aspirin Regimen) losartan 100 mg tablet 100 mg PO DAILY #90 tab 05/10/20 05/03/21 Rx blood sugar diagnostic (OneTouch #200 ea 05/16/20 11/30/20 Rx Ultra Blue Test Strip) pantoprazole 40 mg tablet,delayed 40 mg PO BID #180 tab 08/01/20 05/03/21 Rx release insulin syringe-needle U-100 1 mL #100 ea 08/09/20 11/30/20 Rx 30 gauge x 1/2" (BD Insulin Syringe Ultra-Fine) allopurinol 100 mg tablet 100 mg PO DAILY #90 tab 08/31/20 05/03/21 Rx cholecalciferol (vitamin D3) 25 25 mcg PO DAILY #30 cap 09/08/20 05/03/21 Rx mcg (1,000 unit) capsule metformin 1,000 mg tablet 1,000 mg PO BID #180 tab 10/22/20 05/03/21 Rx insulin human U-100 NPH-regulr See Rx Instructions SUBCUT TID ml 11/22/20 05/03/21 History 70-30 mix 100 unit/mL subcutaneous susp (Novolin 70/30 U-100 Insulin) amlodipine 5 mg tablet 5 mg PO DAILY #90 tab 11/30/20 05/03/21 Rx carvedilol 25 mg tablet 25 mg PO BID #180 tab 11/30/20 05/03/21 Rx furosemide 40 mg tablet (Lasix) 40 mg PO DAILY #90 tab 01/02/21 05/03/21 Rx cyclobenzaprine 5 mg tablet See Rx Instructions PO Q8H PRN #30 03/20/21 05/03/21 Rx tab celecoxib 200 mg capsule (Celebrex) 200 mg PO BID #180 cap 04/22/21 05/03/21 Rx Past Med/Surg History Medical History (Updated 05/04/21 @ 02:19 by Erasmo Bazan MD) Bilateral tinnitus Chronic diastolic CHF (congestive heart failure) Diverticulosis Fibromyalgia GERD (gastroesophageal reflux disease) GIB (gastrointestinal bleeding) ulcerated hemangioma resected 2019 History of breast cancer RT (SURGERY WITH RADIATION) History of kidney stones HTN (hypertension) Iron deficiency anemia Osteoarthritis Overactive bladder PMR (polymyalgia rheumatica) Pulmonary nodules Sleep apnea NO DEVICE "MILD" SNHL (sensorineural hearing loss) Spinal stenosis Transient ischemic attack (TIA) x 3 (2014, 2015, 2019) NO CURRENT PROBLEMS FROM EVENT Type 2 diabetes mellitus Surgical History H/O lithotripsy H/O lumpectomy History of arthroscopy History of bilateral tubal ligation History of breast biopsy History of cardiac cath History of colonoscopy History of esophagogastroduodenoscopy (EGD) History of tooth extraction S/P appendectomy Family History Grandmother Family history of diabetes mellitus Father Family history of diabetes mellitus Lung cancer Lung disease Mother MDP (myeloproliferative disorder) Family history of diabetes mellitus Glaucoma Hypertension Gall bladder disease Unknown Diabetes Leukemia Myocardial infarction Other No family history of adverse response to anesthesia Social History Smoking Status: Never smoker Second Hand Exposure: Yes ( A CHILD); Hx Alcohol Use: No Hx Substance Use: No Preferred Language: Welsh Communication Ability: Effective [employer]ing [employer] Supervisor Required: No Beliefs That Will Affect Care: None marital status: marital status details: No children Current Living Situation: Spouse current occupational status: retired 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 The review of systems is otherwise negative other than for that already noted above, and at least 10 systems have been reviewed. Physical Exam Physical Exam: The patient is awake, alert and oriented 3, well developed and well nourished, normocephalic and atraumatic, lying in bed and in no acute distress. HEENT--PERRL, EOMI, mucous membranes and oropharynx normal. Neck--supple. No JVD. No bruits. Thyroid normal, trachea midline, no adenopathy. Heart--normal S1 and S2. No murmurs, rubs or gallops. Lungs--clear bilaterally, no respiratory distress, no accessory muscle use. Abdomen--normal bowel sounds and soft. Nontender. Nondistended. Morbidly obese Extremities--no cyanosis or clubbing. No edema. Dermatologic--normal skin turgor, normal color, no abnormal lymph nodes, no rash. Neurologic--cranial nerves II through XII grossly intact. Rheumatologic--normal range of motion. Psychiatric--normal affect. Results & Data Results & Data ([facility]) Vital Signs (Past 12 Hours) Vital Signs Temp Pulse Pulse Resp BP BP Pulse Ox 05/03/21 21:30 68 16 189/61 H 94 05/03/21 19:41 80 18 226/66 H 96 05/03/21 17:35 75 18 206/77 H 98 05/03/21 16:50 98.2 F 73 19 217/85 H 95 Laboratory Results Laboratory Results WBC 11.98 K/uL (4.8-10.8) H 05/03/21 17:30 RBC 4.47 M/uL (4.2-5.4) 05/03/21 17:30 Hgb 11.6 g/dL (12.0-16.0) L 05/03/21 17:30 Hct 37.1 % (37-47) 05/03/21 17:30 MCV 83.0 fL (80-100) 05/03/21 17:30 MCH 26.0 pg (25-34) 05/03/21 17:30 MCHC 31.3 g/dL (32-36) L 05/03/21 17:30 RDW Std Deviation 47.5 fL (36.4-46.3) H 05/03/21 17:30 RDW Coeff of Guevara 15.8 % (11.5-14.5) H 05/03/21 17:30 Plt Count 349 K/uL (130-400) 05/03/21 17:30 MPV 10.3 fL (7.4-10.4) 05/03/21 17:30 Immature Gran % (Auto) 0.9 % 05/03/21 17:30 Neut % (Auto) 72.6 % 05/03/21 17:30 Lymph % (Auto) 16.8 % 05/03/21 17:30 [place] % (Auto) 6.3 % 05/03/21 17:30 Eos % (Auto) 3.3 % 05/03/21 17:30 Baso % (Auto) 0.1 % 05/03/21 17:30 Neut # (Auto) 8.69 K/uL (1.4-6.5) H 05/03/21 17:30 Lymph # (Auto) 2.01 K/uL (1.2-3.4) 05/03/21 17:30 [place] # (Auto) 0.76 K/uL (0.11-0.59) H 05/03/21 17:30 Eos # (Auto) 0.40 K/uL (0-0.5) 05/03/21 17:30 Baso # (Auto) 0.01 K/uL (0-0.2) 05/03/21 17:30 Immature Gran # (Auto) 0.11 K/uL (0.00-0.02) H 05/03/21 17:30 Sodium 139 mmol/L (136-145) 05/03/21 17:30 Potassium 4.5 mmol/L (3.5-5.1) 05/03/21 17:30 Chloride 110 mmol/L (98-107) H 05/03/21 17:30 Carbon Dioxide 26 mmol/L (21-32) 05/03/21 17:30 Anion Gap 3.0 (3-11) 05/03/21 17:30 BUN 24 mg/dl (7-18) H 05/03/21 17:30 Creatinine 1.15 mg/dl (0.6-1.2) 05/03/21 17:30 Est Cr Clr Drug Dosing 53.6 ml/min 05/03/21 17:30 Est GFR ( Amer) 53.9 ml/min 05/03/21 17:30 Est GFR (Non-Af Amer) 46.5 ml/min 05/03/21 17:30 BUN/Creatinine Ratio 20.6 (10-20) H 05/03/21 17:30 Glucose 140 mg/dl (70-99) H 05/03/21 17:30 Calcium 9.5 mg/dl (8.5-10.1) 05/03/21 17:30 Total Bilirubin 0.3 mg/dl (0.2-1) 05/03/21 17:30 AST 19 U/L (15-37) 05/03/21 17:30 ALT 38 U/L (12-78) 05/03/21 17:30 Alkaline Phosphatase 61 U/L (45-117) 05/03/21 17:30 Troponin I < 0.015 ng/ml (0-0.045) 05/04/21 00:38 Total Protein 7.5 gm/dl (6.4-8.2) 05/03/21 17:30 Albumin 3.3 gm/dl (3.4-5.0) L 05/03/21 17:30 Globulin 4.2 gm/dl (2.5-4.0) H 05/03/21 17:30 Albumin/Globulin Ratio 0.8 (0.9-2) L 05/03/21 17:30 Urine Color Yellow 05/03/21 22:10 Urine Appearance Clear (Clear) 05/03/21 22:10 Urine pH 5.0 (4.5-7.5) 05/03/21 22:10 Ur Specific [place] 1.014 (1.000-1.030) 05/03/21 22:10 Urine Protein 1+ (Negative) H 05/03/21 22:10 Urine Glucose (UA) Negative (Negative) 05/03/21 22:10 Urine Ketones Negative (Negative) 05/03/21 22:10 Urine Blood Negative (Negative) 05/03/21 22:10 Urine Nitrite Negative (Negative) 05/03/21 22:10 Urine Bilirubin Negative (Negative) 05/03/21 22:10 Urine Urobilinogen Negative (Negative) 05/03/21 22:10 Ur Leukocyte Esterase Negative (Negative) 05/03/21 22:10 Urine WBC (Auto) 1-5 /hpf (0-5) 05/03/21 22:10 Urine RBC (Auto) 0-4 /hpf (0-4) 05/03/21 22:10 U Hyaline Cast (Auto) 0 /lpf (0-5) 05/03/21 22:10 U Epithel Cells (Auto) 5-10 /lpf (0-5) H 05/03/21 22:10 Urine Bacteria (Auto) 1+ (Negative) H 05/03/21 22:10 Lyme Disease IgG Ab Negative (Negative) 05/03/21 17:30 Lyme Disease IgM Ab Negative (Negative) 05/03/21 17:30 COVID-19 Eval Order Covid19 at [facility] 05/03/21 20:09 SARS-CoV-2 (PCR) NEGATIVE (Negative) 05/03/21 20:[address] 05/03/21 18:18 CT OF THE HEAD WITHOUT CONTRAST CLINICAL HISTORY: Hypertension. Dizziness. COMPARISON STUDY: Head CT January 29, 2019. MRI of the brain November 04, 2019. CT DOSE: 614.27 mGy.cm TECHNIQUE: Helical axial images of the head were obtained without IV contrast. Automated exposure control was utilized for the study. A dose lowering technique was utilized adhering to the principles of ALARA. FINDINGS: No acute intracranial hemorrhage, midline shift or mass effect is present. The ventricular system is unremarkable. The basal cisterns are patent. No extra-axial collections are present. There are no findings to suggest acute dural sinus thrombosis or acute territorial infarct. No significant calvarial abnormalities are present. Visualized portions of the sinuses and mastoid air cells are clear. IMPRESSION: No acute intracranial findings. ACT 112: Negative or not required by law. Electronically signed by: Jayy Rojas M.D. 05/03/2021 7:39 PM Chest X-Ray 05/03/21 19:51 XR chest 1V portable CLINICAL HISTORY: lightheaded, HTN, bradycardia COMPARISON STUDY: Chest CT March 28, 2020. Chest radiograph January 29, 2019 per FINDINGS: There is no pneumothorax or pleural effusion. Mild elevation the right hemidiaphragm is unchanged. Cardiomediastinal silhouette is stable. Linear left midlung opacity is unchanged. This favors scarring or atelectasis. There is no evidence for overt pulmonary edema. IMPRESSION: No acute cardiopulmonary findings. No significant change in appearance of the chest. ACT 112: Negative or not required by law. Electronically signed by: Jayy Rojas M.D. 05/03/2021 8:26 PM Code Status & VTE Plan Code Status Full code VTE Prophylaxis Plan VTE Prophylaxis will be ordered: Yes PG Care Time/CCT Total # of Minutes Spent Total Time Spent with Patient: Total time spent is greater than 50% in coordination of care (as documented) at patient's floor/unit and/or counseling patient: Coding Level of Care Code INT OBSERVATION CARE 70M LVL 3 Diagnoses Chronic diastolic CHF (congestive heart failure) I50.32 Fibromyalgia M79.7 Type 2 diabetes mellitus E11.9 PMR (polymyalgia rheumatica) M35.3 HTN (hypertension) I10 GERD (gastroesophageal reflux disease) K21.9 Left-sided chest pain R07.9
[2021-05-03 22:26] LABS: Appearance Urine Clear (Clear); Bacteria Urine Automated 1+ (Negative); Bilirubin Urine Negative (Negative); Blood Urine Negative (Negative); Cast Urine Automated 0 /lpf (0-5); Color Urine Yellow; Glucose Urine UA Negative (Negative); Ketones Urine Negative (Negative); Leukocyte Esterase Urine Negative (Negative); Nitrite Urine Negative (Negative); Protein Urine 1+ (Negative); RBC Urine Automated 0-4 /hpf (0-4); Specific Gravity Urine 1.014 (1.000-1.030); Urobilinogen Urine Negative (Negative)
--- NOTE | 2021-05-03 23:13 | Emergency Department Note ---
Impression & Plan Severe hypertension, Lightheadedness, Leukocytosis ED Provider Note INFORMANT: Patient ED PROVIDER(S): Umesh Maynard MD CHIEF COMPLAINT: Hypertension PLAN: Disposition: Admitted Condition: Good Outpatient prescription management: none Referral: None MEDICAL DECISION MAKING: Patient presented because of fluctuating heart rate, hypotension and dizziness. She was significantly hypertensive. She did not take her evening medications and this was done. Her ECG shows a normal rhythm. Her CBC was minimally elevated patient is taking prednisone. Paraspinal C-spine negative. CT scan of the head was negative. Chest x-ray does not show any significant findings. As the patient was significantly hypertensive she was also given a dose of IV hydralazine. Patient feels unsteady on her feet. Further management was felt to be appropriate. Patient agreed. Consultation was made with Dr. Erasmo Bazan of the [facility] service. Patient was evaluated in the ER for further management. Triage Nursing notes reviewed and agree them. Vital Signs: reviewed and remarkable for severe hypertension Differential diagnosis: CVA, TIA, hypertensive emergency, severe hypertension, infection, dehydration, metabolic abnormality, hypo/hyperglycemia, electrolyte disturbance, anemia, hypoxia, cardiac sources, intracerebral event, toxicologic, neurologic, as well as other pathologies. Diagnostics interpreted by me: ECG: Twelve-lead ECG reveals a normal sinus rhythm at 74 bpm. Left ventricular hypertrophy present. Left atrial enlargement present. No ST elevation or depression. Cardiac Monitoring: Cardiac monitoring ordered by me: The patient was placed on continuous cardiac monitoring and observed. It revealed a normal sinus rhythm at 68 beats per minute without ectopy or evidence of dysrhythmia. Imaging studies: Head CT: A noncontrast CT scan of the head was performed and was negative for tumor, fracture, intracranial hemorrhage, or other acute pathology. Chest x-ray. Findings: A chest x-ray was performed and revealed no pneumothorax, effusion, infiltrate, pulmonary edema, free air under the diaphragm, or wide mediastinum. Impression: No acute disease. HPI: The patient is a 75 year old female who presents to the Emergency Room with complaints of hypertension. This started today and is persisting. The patient also notes the following associated symptoms, lightheadedness, occasional headaches, intermittent chest pain, dizziness. Patient states that she was taking her blood pressure throughout the day and at times would note her heart rate was in the 30s. The patient has taken no medication for relieving factors. Current pain is rated as 3/10. Pt denies LOC, fevers, chills, diaphoresis, visual changes, neck pain, breathing difficulties, nausea, vomiting, abdominal pain, back pain, melena, hematochezia, urinary symptoms, numbness, focal weakness, lymphadenopathy, rash, or other complaints. ROS: See above HPI for pertinent positives & negatives. A total of 10 systems reviewed and were otherwise negative. PAST MEDICAL HISTORY:See Below , hypertension, CHF, TIA, diabetes PAST SURGICAL HISTORY:See Below, FAMILY HISTORY:See Below SOCIAL HISTORY:See Below, HOME MEDICATIONS:See Below ALLERGIES:See Below VITALS:See Below PHYSICAL EXAMINATION: GENERAL: Awake, alert, mildly anxious-appearing, in no distress HENT: Normocephalic, atraumatic. Oropharynx unremarkable. EYES: Normal conjunctiva. Sclera non-icteric. PERRLA. EOMI. NECK: Inspection normal. Non-tender. Supple. No nuchal rigidity. FROM. No masses. RESPIRATORY: Clear to auscultation. No wheezes. No rales. Normal respiratory effort. CARDIAC: Normal rate. Normal rhythm. No murmurs. No rubs. Extremities warm and well perfused. Pulses equal. No JVD. GI: Soft, non-distended. No tenderness to palpation. No rebound or guarding. No masses. RECTAL: Deferred. MUSCULOSKELETAL: Atraumatic. Chest examination reveals no tenderness. The back is symmetrical on inspection without obvious abnormality. There is no CVA tende rness to palpation. No joint edema. LOWER EXTREMITIES: Calves are equal size bilaterally and non-tender. No edema. No discoloration. NEURO: Normal sensorium. No sensory or motor deficits noted. Cranial nerves II through XII intact. No drift. SKIN: No rash or jaundice noted. Umesh Maynard MD Past Med/Surg History Medical History (Updated 05/04/21 @ 02:19 by Erasmo Bazan MD) Bilateral tinnitus Chronic diastolic CHF (congestive heart failure) Diverticulosis Fibromyalgia GERD (gastroesophageal reflux disease) GIB (gastrointestinal bleeding) ulcerated hemangioma resected 2019 History of breast cancer RT (SURGERY WITH RADIATION) History of kidney stones HTN (hypertension) Iron deficiency anemia Osteoarthritis Overactive bladder PMR (polymyalgia rheumatica) Pulmonary nodules Sleep apnea NO DEVICE "MILD" SNHL (sensorineural hearing loss) Spinal stenosis Transient ischemic attack (TIA) x 3 (2014, 2015, 2019) NO CURRENT PROBLEMS FROM EVENT Type 2 diabetes mellitus Surgical History H/O lithotripsy H/O lumpectomy History of arthroscopy History of bilateral tubal ligation History of breast biopsy History of cardiac cath History of colonoscopy History of esophagogastroduodenoscopy (EGD) History of tooth extraction S/P appendectomy Family History Grandmother Family history of diabetes mellitus Father Family history of diabetes mellitus Lung cancer Lung disease Mother MDP (myeloproliferative disorder) Family history of diabetes mellitus Glaucoma Hypertension Gall bladder disease Unknown Diabetes Leukemia Myocardial infarction Other No family history of adverse response to anesthesia Social History Smoking Status: Never smoker Second Hand Exposure: Yes ( A CHILD); Hx Alcohol Use: No Hx Substance Use: No Preferred Language: Cypriot Communication Ability: Effective Sales Merchandiser Required: No Beliefs That Will Affect Care: None marital status: marital status details: No children Current Living Situation: Spouse current occupational status: retired 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 [employer] Feels Safe at Home: Yes Assistive Devices: None Allergies Allergies Allergy/AdvReac Type Severity Reaction Status Date / Time Iodinated Contrast Media Allergy Severe ANAPHYLAXIS Verified 05/03/21 17:40 /CONVULSION S sumatriptan Allergy Severe SOB,INCREASED Verified 05/03/21 17:40 HEARTRATE Bactrim Allergy Intermediate hives Verified 03/15/18 10:08 ciprofloxacin Allergy Intermediate hives Verified 05/03/21 17:40 metronidazole Allergy Intermediate HIVES Verified 05/03/21 17:40 sulfamethoxazole Allergy Intermediate hives Verified 05/03/21 17:40 trimethoprim Allergy Intermediate hives Verified 05/03/21 17:40 adhesive AdvReac Severe SEVERE Verified 05/03/21 17:40 BURNING BLISTERS tramadol AdvReac Mild FATIGUE Verified 05/03/21 17:40 Home Meds Home Medications Medication Instructions Recorded Confirmed aspirin 81 mg tablet,delayed 81 mg PO DAILY 02/27/20 05/03/21 release (Adult Aspirin Regimen) insulin human U-100 NPH-regulr See Rx Instructions SUBCUT TID ml 11/22/2005/03 70-30 mix 100 unit/mL subcutaneous susp (Novolin 70/30 U-100 Insulin) Previous Rx's Medication Instructions Recorded lancets 30 gauge (OneTouch Delica #100 ea 08/25/19 Lancets) losartan 100 mg tablet 100 mg PO DAILY #90 tab 05/10/20 blood sugar diagnostic (OneTouch #200 ea 05/16/20 Ultra Blue Test Strip) pantoprazole 40 mg tablet,delayed 40 mg PO BID #180 tab 08/01/20 release insulin syringe-needle U-100 1 mL #100 ea 08/09/20 30 gauge x 1/2" (BD Insulin Syringe Ultra-Fine) allopurinol 100 mg tablet 100 mg PO DAILY #90 tab 08/31/20 cholecalciferol (vitamin D3) 25 25 mcg PO DAILY #30 cap 09/08/20 mcg (1,000 unit) capsule metformin 1,000 mg tablet 1,000 mg PO BID #180 tab 10/22/20 amlodipine 5 mg tablet 5 mg PO DAILY #90 tab 11/30/20 carvedilol 25 mg tablet 25 mg PO BID #180 tab 11/30/20 furosemide 40 mg tablet (Lasix) 40 mg PO DAILY #90 tab 01/02/21 cyclobenzaprine 5 mg tablet See Rx Instructions PO Q8H PRN #30 03/20/21 tab celecoxib 200 mg capsule (Celebrex) 200 mg PO BID #180 cap 04/22/21 amlodipine 10 mg tablet (Norvasc) 10 mg PO DAILY #30 tab 05/04/21 carvedilol 12.5 mg tablet 12.5 mg PO BID #60 tab 05/04/21 hydralazine 25 mg tablet 25 mg PO BID #60 tab 05/04/21 Results & Data (ED) Vital Signs Vital Signs - 24 hr 05/03/21 16:50 05/03/21 17:35 05/03/21 19:41 Temperature 36.8 C Temperature Source Temporal Artery Scan Pulse Rate 73 Pulse Rate [Apical] 75 80 Respiratory Rate 19 18 18 Blood Pressure 217/85 H Blood Pressure [Left Arm] 206/77 H 226/66 H Blood Pressure Mean 129 Blood Pressure Mean [Left Arm] 120 119 Pulse Oximetry 95 98 96 Oxygen Delivery Method Room Air Room Air Sepsis Recent Fever Within 48 Hours No Sepsis New/Unexplained Change in Mental Status N/A Sepsis Action Taken by Nursing No Action Required 05/03/21 21:30 Temperature Temperature Source Pulse Rate Pulse Rate [Apical] 68 Respiratory Rate 16 Blood Pressure Blood Pressure [Left Arm] 189/61 H Blood Pressure Mean Blood Pressure Mean [Left Arm] 103 Pulse Oximetry 94 Oxygen Delivery Method Room Air Sepsis Recent Fever Within 48 Hours Sepsis New/Unexplained Change in Mental Status Sepsis Action Taken by Nursing Laboratory Data Result diagrams: 05/04/21 07:59 05/04/21 07:59 Lab Results 05/03/21 05/03/21 05/03/21 Range/Units 17:30 17:30 17:30 WBC 11.98 H (4.8-10.8) K/uL RBC 4.47 (4.2-5.4) M/uL Hgb 11.6 L (12.0-16.0) g/dL Hct 37.1 (37-47) % MCV 83.0 (80-100) fL MCH 26.0 (25-34) pg MCHC 31.3 L (32-36) g/dL RDW Std Deviation 47.5 H (36.4-46.3) fL RDW Coeff of Guevara 15.8 H (11.5-14.5) % Plt Count 349 (130-400) K/uL MPV 10.3 (7.4-10.4) fL Immature Gran % (Auto) 0.9 % Neut % (Auto) 72.6 % Lymph % (Auto) 16.8 % Dawson % (Auto) 6.3 % Eos % (Auto) 3.3 % Baso % (Auto) 0.1 % Neut # (Auto) 8.69 H (1.4-6.5) K/uL Lymph # (Auto) 2.01 (1.2-3.4) K/uL Dawson # (Auto) 0.76 H (0.11-0.59) K/uL Eos # (Auto) 0.40 (0-0.5) K/uL Baso # (Auto) 0.01 (0-0.2) K/uL Immature Gran # (Auto) 0.11 H (0.00-0.02) K/uL Sodium 139 (136-145) mmol/L Potassium 4.5 (3.5-5.1) mmol/L Chloride 110 H (98-107) mmol/L Carbon Dioxide 26 (21-32) mmol/L Anion Gap 3.0 (3-11) BUN 24 H (7-18) mg/dl Creatinine 1.15 (0.6-1.2) mg/dl Est Cr Clr Drug Dosing 53.6 ml/min Est GFR ( Amer) 53.9 ml/min Est GFR (Non-Af Amer) 46.5 ml/min BUN/Creatinine Ratio 20.6 H (10-20) Glucose 140 H (70-99) mg/dl Calcium 9.5 (8.5-10.1) mg/dl Total Bilirubin 0.3 (0.2-1) mg/dl AST 19 (15-37) U/L ALT 38 (12-78) U/L Alkaline Phosphatase 61 (45-117) U/L Troponin I < 0.015 (0-0.045) ng/ml Total Protein 7.5 (6.4-8.2) gm/dl Albumin 3.3 L (3.4-5.0) gm/dl Globulin 4.2 H (2.5-4.0) gm/dl Albumin/Globulin Ratio 0.8 L (0.9-2) Lyme Disease IgG Ab (Negative) Lyme Disease IgM Ab (Negative) COVID-19 Eval Order SARS-CoV-2 (PCR) (Negative) 05/03/21 05/03/21 05/03/21 Range/Units 17:30 20:09 20:09 WBC (4.8-10.8) K/uL RBC (4.2-5.4) M/uL Hgb (12.0-16.0) g/dL Hct (37-47) % MCV (80-100) fL MCH (25-34) pg MCHC (32-36) g/dL RDW Std Deviation (36.4-46.3) fL RDW Coeff of Guevara (11.5-14.5) % Plt Count (130-400) K/uL MPV (7.4-10.4) fL Immature Gran % (Auto) % Neut % (Auto) % Lymph % (Auto) % Dawson % (Auto) % Eos % (Auto) % Baso % (Auto) % Neut # (Auto) (1.4-6.5) K/uL Lymph # (Auto) (1.2-3.4) K/uL Dawson # (Auto) (0.11-0.59) K/uL Eos # (Auto) (0-0.5) K/uL Baso # (Auto) (0-0.2) K/uL Immature Gran # (Auto) (0.00-0.02) K/uL Sodium (136-145) mmol/L Potassium (3.5-5.1) mmol/L Chloride (98-107) mmol/L Carbon Dioxide (21-32) mmol/L Anion Gap (3-11) BUN (7-18) mg/dl Creatinine (0.6-1.2) mg/dl Est Cr Clr Drug Dosing ml/min Est GFR ( Amer) ml/min Est GFR (Non-Af Amer) ml/min BUN/Creatinine Ratio (10-20) Glucose (70-99) mg/dl Calcium (8.5-10.1) mg/dl Total Bilirubin (0.2-1) mg/dl AST (15-37) U/L ALT (12-78) U/L Alkaline Phosphatase (45-117) U/L Troponin I (0-0.045) ng/ml Total Protein (6.4-8.2) gm/dl Albumin (3.4-5.0) gm/dl Globulin (2.5-4.0) gm/dl Albumin/Globulin Ratio (0.9-2) Lyme Disease IgG Ab Negative (Negative) Lyme Disease IgM Ab Negative (Negative) COVID-19 Eval Order Covid19 at [facility] SARS-CoV-2 (PCR) NEGATIVE (Negative) Administered Medications Acetaminophen (Acetaminophen 325 Mg Tab) 650 mg PO Q4H PRN PRN Reason: Pain or Fever Stop: 06/03/21 00:18 Last Admin: 05/04/21 04:15 Dose: 650 mg Documented by: [id number] Allopurinol (Allopurinol 100 Mg Tab) 100 mg PO DAILY [facility] Stop: 06/03/21 08:59 Last Admin: 05/04/21 08:39 Dose: 100 mg Documented by: [id number] Amlodipine Besylate (Amlodipine Besylate 5 Mg Tab) 5 mg PO DAILY [facility] Stop: 06/03/21 08:59 Last Admin: 05/04/21 08:39 Dose: 5 mg Documented by: [id number] Aspirin (Aspirin 81 Mg Ectab) 81 mg PO DAILY [facility] Stop: 06/03/21 08:59 Last Admin: 05/04/21 08:39 Dose: 81 mg Documented by: [id number] Celecoxib (Celebrex 200 Mg Cap) 200 mg PO BID [facility] Stop: 06/03/21 08:59 Last Admin: 05/04/21 08:39 Dose: 200 mg Documented by: [id number] Furosemide (Furosemide 40 Mg Tab) 40 mg PO DAILY [facility] Stop: 06/03/21 08:59 Last Admin: 05/04/21 08:38 Dose: 40 mg Documented by: [id number] Hydralazine HCl (Hydralazine Hcl 20 Mg/Ml Vial) 10 mg IV Q4H PRN PRN Reason: Blood Pressure - High Stop: 06/03/21 02:12 Last Admin: 05/04/21 04:15 Dose: 10 mg Documented by: [id number] Hydralazine HCl (Hydralazine Hcl 25 Mg Tab) 25 mg PO BID [facility] Stop: 06/03/21 10:59 Last Admin: 05/04/21 11:38 Dose: 25 mg Documented by: [id number] Magnesium Sulfate/Dextrose (Magnesium Sulfate / D5w) 1 gm in 100 mls @ 50 mls/hr IV ONE ONE Stop: 05/04/21 15:39 Last Admin: 05/04/21 14:03 Dose: 50 mls/hr Documented by: [id number] Insulin Aspart (Insulin Aspart 100 Units/Ml 3 Ml Pen) 0 units SC ACHS [facility] Stop: 06/03/21 07:29 Last Admin: 05/04/21 12:55 Dose: 3 units Documented by: [id number] Cosigned by: [id number] Admin: 05/04/21 08:46 Dose: 3 units Documented by: [id number] Cosigned by: [id number] Insulin Human Isoph/Insulin Regular (Insulin Human 70% Nph/30% Regular) 50 units SQ BIDM [facility] Stop: 06/03/21 07:59 Last Admin: 05/04/21 08:47 Dose: 50 units Documented by: [id number] Cosigned by: [id number] Losartan Potassium (Losartan Potassium 50 Mg Tab) 100 mg PO DAILY [facility] Stop: 06/03/21 08:59 Last Admin: 05/04/21 08:39 Dose: 100 mg Documented by: [id number] Pantoprazole Sodium (Pantoprazole 40 Mg Tab) 40 mg PO BID [facility] Stop: 06/03/21 08:59 Last Admin: 05/04/21 08:38 Dose: 40 mg Documented by: [id number] Vitamin D (Cholecalciferol 1,000 Units 25 Mcg Tab) 1,000 units PO DAILY [facility] Stop: 06/03/21 08:59 Last Admin: 05/04/21 08:38 Dose: 1,000 units Documented by: [id number] Discontinued Medications Amlodipine Besylate (Amlodipine Besylate 5 Mg Tab) 10 mg PO NOW ONE Stop: 05/03/21 19:40 Last Admin: 05/03/21 19:49 Dose: 10 mg Documented by: [id number] Carvedilol (Carvedilol 25 Mg Tab) 25 mg PO NOW ONE Stop: 05/03/21 19:40 Last Admin: 05/03/21 20:08 Dose: 25 mg Documented by: [id number] Carvedilol (Carvedilol 25 Mg Tab) 25 mg PO BID [facility] Stop: 06/03/21 08:59 Last Admin: 05/04/21 08:39 Dose: 25 mg Documented by: [id number] Hydralazine HCl (Hydralazine Hcl 20 Mg/Ml Vial) 5 mg IV NOW ONE Stop: 05/03/21 19:42 Last Increment: 05/03/21 19:51 Dose: 4.75 mg Documented by: [id number] Increment: 05/03/21 19:49 Dose: 0.25 mg Documented by: [id number] Imaging Data Radiologist's Impression: Head CT 05/03/21 18:18 CT OF THE HEAD WITHOUT CONTRAST CLINICAL HISTORY: Hypertension. Dizziness. COMPARISON STUDY: Head CT January 29, 2019. MRI of the brain November 04, 2019. CT DOSE: 614.27 mGy.cm TECHNIQUE: Helical axial images of the head were obtained without IV contrast. Automated exposure control was utilized for the study. A dose lowering technique was utilized adhering to the principles of ALARA. FINDINGS: No acute intracranial hemorrhage, midline shift or mass effect is present. The ventricular system is unremarkable. The basal cisterns are patent. No extra-axial collections are present. There are no findings to suggest acute dural sinus thrombosis or acute territorial infarct. No significant calvarial abnormalities are present. Visualized portions of the sinuses and mastoid air cells are clear. IMPRESSION: No acute intracranial findings. ACT 112: Negative or not required by law. Electronically signed by: Jayy Rojas M.D. 05/03/2021 7:39 PM Chest X-Ray 05/03/21 19:51 XR chest 1V portable CLINICAL HISTORY: lightheaded, HTN, bradycardia COMPARISON STUDY: Chest CT March 28, 2020. Chest radiograph January 29, 2019 per FINDINGS: There is no pneumothorax or pleural effusion. Mild elevation the right hemidiaphragm is unchanged. Cardiomediastinal silhouette is stable. Linear left midlung opacity is unchanged. This favors scarring or atelectasis. There is no evidence for overt pulmonary edema. IMPRESSION: No acute cardiopulmonary findings. No significant change in appearance of the chest. ACT 112: Negative or not required by law. Electronically signed by: Jayy Rojas M.D. 05/03/2021 8:26 PM Discharge Plan Visit Data Chief Complaint: Hypertension Stated Complaint: HEART, HIGH BLOOD PRESSURE ED Provider: Umesh Maynard Discharge Problem: Severe hypertension, Lightheadedness, Leukocytosis Patient Disposition: Admitted As Inpatient Discharge Instructions Interventions: ED Discharge Assessment Last Done: 05/03/21 22:54
[2021-05-04] MEDS ORDERED: DEXTROSE 50% 50 ML SYRINGE IV PRN (00:19)
[2021-05-04] MEDS ORDERED: ACETAMINOPHEN 325 MG TAB PO PRN (00:19)
[2021-05-04] MEDS ORDERED: GLUCOSE 40% GEL 15 GM TUBE PO PRN (00:19)
[2021-05-04] MEDS ORDERED: GLUCAGON FOR INJ 1 MG VIAL SQ PRN (00:19)
[2021-05-04] MEDS ORDERED: ONDANSETRON INJ 2 MG/ML 2 ML VIAL IV PRN (00:19)
[2021-05-04] MEDS ORDERED: CARBOHYDRATES FOR HYPOGLYCEMIA PO PRN (00:19)
[2021-05-04] MEDS ORDERED: NITROGLYCERIN SL 0.4 MG/TAB TAB SL PRN (00:19)
[2021-05-04] MEDS ORDERED: GLUCOSE 10 TABS/TUBE PO PRN (00:19)
[2021-05-04] MEDS ORDERED: INFLUENZA VACCINE HIGH DOSE PF 65+ 0.7 ML SYR IM ONE (00:54)
[2021-05-04] MEDS ORDERED: hydrALAZINE HCL 20 MG/ML VIAL IV PRN (02:13)
[2021-05-04] MEDS ORDERED: INSULIN HUMAN 70% NPH/30% REGULAR SQ SCH (08:00)
[2021-05-04 08:13] LABS: Basophils # (auto) 0.03 K/uL (0-0.2); Basophils % (auto) 0.2 %; Eosinophils # (auto) 0.34 K/uL (0-0.5); Eosinophils % (auto) 2.7 %; Hematocrit (blood only) 37.2 % (37-47); Hemoglobin 11.8 g/dL (12.0-16.0); Immature Granulocytes % (auto) 0.8 %; Lymphocytes % (auto) 13.5 %; Mean Corpuscular Hemoglobin 25.8 pg (25-34); Mean Corpuscular Hgb Conc 31.7 g/dL (32-36); Mean Corpuscular Volume 81.2 fL (80-100); Mean Platelet Volume 10.2 fL (7.4-10.4); Monocytes # (auto) 0.76 K/uL (0.11-0.59); Neutrophils # (auto) 9.65 K/uL (1.4-6.5); Neutrophils % (auto) 76.8 %; Platelet Count 359 K/uL (130-400); RDW Coefficient of Variation 15.7 % (11.5-14.5); RDW Standard Deviation 46.1 fL (36.4-46.3); Red Blood Count 4.58 M/uL (4.2-5.4); White Blood Count 12.58 K/uL (4.8-10.8)
[2021-05-04 08:35] LABS: Alanine Aminotransferase 39 U/L (12-78); Albumin Level 3.2 gm/dl (3.4-5.0); Aspartate Aminotransferase 20 U/L (15-37); BUN Creatinine Ratio 21.5 (10-20); Blood Urea Nitrogen 16 mg/dl (7-18); Carbon Dioxide 23 mmol/L (21-32); Chloride 104 mmol/L (98-107); Creatinine Clr Calc Pharmacy 81.2 ml/min; Est GFR (African American) 88.9 ml/min; Est GFR (Non-African American) 76.7 ml/min; Glucose 195 mg/dl (70-99); Magnesium 1.6 mg/dl (1.8-2.4); Potassium 4.1 mmol/L (3.5-5.1); Sodium 135 mmol/L (136-145)
[2021-05-04 08:42] LABS: Albumin Globulin Ratio 0.7 (0.9-2); Alkaline Phosphatase 62 U/L (45-117); Bilirubin,Total 0.3 mg/dl (0.2-1); Globulin 4.4 gm/dl (2.5-4.0); Total Protein 7.6 gm/dl (6.4-8.2); Troponin I < 0.015 ng/ml (0-0.045)
[2021-05-04] MEDS: INSULIN ASPART 100 UNITS/ML 3 ML PEN SC SCH ×2 (08:46→12:55)
[2021-05-04] MEDS ORDERED: amLODIPine BESYLATE 5 MG TAB PO SCH (09:00)
[2021-05-04] MEDS ORDERED: CeleBREX 200 MG CAP PO SCH (09:00)
[2021-05-04] MEDS ORDERED: CHOLECALCIFEROL 1,000 UNITS 25 MCG TAB PO SCH (09:00)
[2021-05-04] MEDS ORDERED: carvediloL 25 MG TAB PO SCH (09:00)
[2021-05-04] MEDS ORDERED: FUROSEMIDE 40 MG TAB PO SCH (09:00)
[2021-05-04] MEDS ORDERED: allopurinoL 100 MG TAB PO SCH (09:00)
[2021-05-04] MEDS ORDERED: PANTOprazole 40 MG TAB PO SCH (09:00)
[2021-05-04] MEDS ORDERED: ASPIRIN 81 MG ECTAB PO SCH (09:00)
[2021-05-04] MEDS ORDERED: LOSARTAN POTASSIUM 50 MG TAB PO SCH (09:00)
[2021-05-04 09:24] LABS: Estimated Average Glucose 177 mg/dl; Hemoglobin A1C 7.8 % (4.5-5.6)
[2021-05-04] MEDS ORDERED: hydrALAZINE HCL 25 MG TAB PO SCH (11:00)
[2021-05-04] MEDS ORDERED: MAGNESIUM SULFATE / D5W 1 GM/100 ML BAG IV ONE (13:40)
--- NOTE | 2021-05-04 13:42 | Electrocardiogram Report ---
Test Reason : Blood Pressure : / mmHG Vent. Rate : 074 BPM Atrial Rate : 074 BPM P-R Int : 148 ms QRS Dur : 092 ms QT Int : 366 ms P-R-T Axes : 064 -27 045 degrees QTc Int : 406 ms Poor data quality, interpretation may be adversely affected Normal sinus rhythm Possible Left atrial enlargement Left ventricular hypertrophy Abnormal ECG When compared with ECG of 04-NOV-2019 13:58, No significant change was found Confirmed by Ananda Coleman ([id number]) on 05/04/2021 1:41:54 PM Referred By: REFERRED SELF Confirmed By:Ananda Coleman
--- NOTE | 2021-05-04 16:39 | Discharge Summary ---
Date of Service May 04, 2021 Admission HPI Per Admitting Provider The patient is a 75-year-old female with a past medical history including chronic diastolic CHF, overactive bladder, fibromyalgia, TIAs, iron deficiency anemia, spinal stenosis, SNHL, GI bleed, diabetes mellitus type 2, hypertension, PMR, GERD, sleep apnea and osteoarthritis. She presents with symptoms as noted above. She reports that she been taking her blood pressure as directed. She denies any issues with excessive salt intake. She does report that her exercise level is very low. Principal Diagnosis 1. Hypertensive urgency 2. Headachesecondary to #1 3. CPACS ruled out. Secondary to #1 4. Hypomagnesemiareplaced Discharge Exam General: Resting comfortably in her hospital bed. She does not appear ill or toxic. NAD. HEENT: Head is AT/NC buccal mucosa is moist and pink Neck: No JVD. Negative hepatojugular reflex Cardiac: RRR with 1/6 YAMINI Lungs: CTA without W/R/R Abdomen: Normoactive X4. Soft and nontender in all quadrants. Extremities: No peripheral clubbing cyanosis or edema Neuro: A&O X4 cranial nerves II through XII are grossly intact no focal neuro deficits Skin: No obvious skin lesions or rashes Psych: Appropriate affect pleasant and cooperative Discharge Data Allergies Allergy/AdvReac Type Severity Reaction Status Date / Time Iodinated Contrast Media Allergy Severe ANAPHYLAXIS Verified 05/07/21 14:25 /CONVULSION S sumatriptan Allergy Severe SOB,INCREASED Verified 05/07/21 14:25 HEARTRATE Bactrim Allergy Intermediate hives Verified 03/15/18 10:08 ciprofloxacin Allergy Intermediate hives Verified 05/07/21 14:25 metronidazole Allergy Intermediate HIVES Verified 05/07/21 14:25 sulfamethoxazole Allergy Intermediate hives Verified 05/07/21 14:25 trimethoprim Allergy Intermediate hives Verified 05/07/21 14:25 adhesive AdvReac Severe SEVERE Verified 05/07/21 14:25 BURNING BLISTERS tramadol AdvReac Mild FATIGUE Verified 05/07/21 14:25 Consultations 05/03/21 20:17 ED Decision to Admit Stat Ordered Studies 05/03/21 18:18 CT head/brain wo con Stat IMPRESSION: No acute intracranial findings. 05/04/21 10:45 US duplex renal artery DAILY Aborted given patient's inability to sit still from muscle cramping Hospital Course (1) Hypertensive urgency: -Patient presented to the ED complaining of chest pain, headache, myalgias and arthralgias. She was noted to have a blood pressure of 217/85 -Prior to arrival, she reports that she checked her blood pressure and heart rate at home. Blood pressure was elevated and her heart rate was low at 33 -Heart rate has been in the 50s to 70s throughout her entire hospitalization but I did review an old property assessment monitor that shows frequent episodes of bradycardia -Patient is prescribed Norvasc 5 mg daily, carvedilol 25 mg twice a day, and losartan 100 mg daily -She was given 1 dose of IV hydralazine and her blood pressure subsequently improved to 168/63 -Was subsequently hospitalized for further evaluation and care -When seen the following morning by myself, she had subsequent troponins that were negative and her EKG was nonacute -Lab data was unremarkable (including CBC, CMP, troponins, Lyme disease, Covid) -Head CT and CXR were unremarkable. EKG was nonacute. -White blood cell count was slightly elevated at 13,000 and her sed rate was elevated (she does report a history of PMR and was recently placed on prednisone 1 week ago) -With improvement in her blood pressure, her headache, chest pain, myalgias and arthralgias completely resolved -At this point, I feel that she is medically and hemodynamically stable for discharge to home but she needs added blood pressure medication to keep her BP controlled. In addition, she was complaining of symptomatic bradycardia prior to arrival and has a Holter monitor that shows evidence of such -We will decrease her Coreg to 12.5 mg twice a day (on account of the bradycardia) -Increase Norvasc to 10 mg daily -Avoid calcium channel blockers and other rate reducing medications for blood pressure control on account of the bradycardia -Add routine hydralazine 25 mg twice daily. This can be uptitrated per PCP -BP prior to discharge today is 124/68 -Given the fact that the patient has very stubborn blood pressure and is on multiple antihypertensives, I did order a renal artery ultrasound but she was unable to sit still on account of leg cramps (which she gets often). I suspect the leg cramps may be secondary to hypomagnesemia. Magnesium supplemented. -Patient did not want to retry the renal artery ultrasound and reports that she will discuss this with her PCP to be done as an outpatient -An echocardiogram was done prior to discharge. Report is not scanned into the computer and unavailable for me to review. PCP to follow-up on this (2) Hypomagnesemia: -Supplement with IV mag rider (3) Leukocytosis: -Likely steroid-induced from chronic prednisone as no S/S infection -Chest x-ray within normal limits. Covid test negative. Lyme test negative. Urinalysis unremarkable. Other chronic comorbidities: 1. LYNDA 2. GERD 3. CHFclinically compensated 4. OAB 5. Fibromyalgia 6. Anemia 7. Spinal stenosis 8. Diabetes mellitus 9. Hypertension 10. PMR 11. TIA 12. Chronic prednisone use --Patient should resume the rest of her prehospital medications except for what is outlined above --Follow-up with PCP within 7 to 10 days --Return to the ED for any new or worsening symptoms Discharge recommendations: 1. Follow-up on BP 2. Up titration in BP medications as warranted 3. Follow-up on heart rate due to reduction in beta-blockade. Further reduction as warranted 4. Follow-up on echocardiogram (done while in house but results unavailable) 5. Renal artery ultrasound (attempted while in house but patient unable to tolerate due to muscle spasms in her legs) Total Time Total Time Spent Total Time Spent (In Minutes): 60 Discharge Plan Discharge Items Patient Disposition: Home - Self-Care Reason For Visit: HEART, HIGH BLOOD PRESSURE Discharge Diagnosis: 1. Hypertensive Urgency Activity: Resume your previous activity Non-emergency contact: Primary Care Provider Call non-emergency contact if: you have any medication questions Follow-up/Referrals: Lucila Rojas MD [Primary Care Provider] - Diet: Carb Consistent or DM2 Addtl Attending Provider Instructions: - you presented to the ED with complaints of Headache, chest pain, and overall didn't feel well - Your blood pressure was significantly elevated (217/85) - With reduction in your blood pressure, your symptoms improved. - labs were done and YOU DID NOT HAVE A HEART ATTACK - You mentioned that your heart rate was 33 prior to coming in. It has been stable while here but I did see that you had a heart monitor in the past showing some evidence of bradycardia (low heart rate) - Coreg does have an effect on both your Heart rate and Blood pressure so I have decreased your dose of Coreg to 12.5mg twice a day (okay to but your current tablets in half and a new Rx was provided) - with a reduction of you Coreg (with already uncontrolled BP), you need something different for added BP control - you were given Hydralazine and responded favorably - You will be sent home with continued hydralazine 25 mg twice a day and can be further increased by your PCP if needed - In addition, your Amlodipine (norvasc) has been increased to 10mg (a new Rx was provided but you can take 2 of your 5mg tablets as to not waste them) - If attempted to get a renal artery U/S (which you were unfortunately unable to complete as your legs developed cramps). Can consider reattempting this as an OP - and Echocardiogram was done (results are pending) - at this time, your HR is 70 and BP 124-158/58-68 (which is acceptable) - return to the ED for new or worsening symptoms - follow up with PCP: 7-10 days Pending Studies at Discharge: Yes Studies:: echocardiogram and partial renal artery ultrasound Stand-Alone Forms: [facility] Medications and DC Order Prescriptions: New carvedilol 12.5 mg Tablet 12.5 mg PO BID Qty: 60 RF: 0 hydralazine 25 mg Tablet 25 mg PO BID Qty: 60 RF: 0 amlodipine [Norvasc] 10 mg tablet 10 mg PO DAILY Qty: 30 RF: 0 Continued (DME) lancets [OneTouch Delica Lancets] 30 gauge misc See Rx Instructions .ROUTE .MEDSUPPLY Qty: 100 RF: 5 (DME) OneTouch Ultra Blue Test Strip Strip See Rx Instructions .ROUTE .MEDSUPPLY Qty: 200 RF: 5 pantoprazole 40 mg tablet,delayed release (DR/EC) 40 mg PO BID Qty: 180 RF: 3 (DME) insulin syringe-needle U-100 [BD Insulin Syringe Ultra-Fine] 1 mL 30 gauge x 1/2" syringe See Rx Instructions .ROUTE .MEDSUPPLY Qty: 100 RF: 5 metformin 1,000 mg tablet 1,000 mg PO BID Qty: 180 RF: 3 cyclobenzaprine 5 mg tablet See Rx Instructions PO Q8H PRN (Reason: muscle spasm) Qty: 30 RF: 1 celecoxib [Celebrex] 200 mg capsule 200 mg PO BID Qty: 180 RF: 0 aspirin [Adult Aspirin Regimen] 81 mg tablet,delayed release (DR/EC) 81 mg PO DAILY RF: 0 allopurinol 100 mg tablet 100 mg PO DAILY Qty: 90 RF: 3 cholecalciferol (vitamin D3) 25 mcg (1,000 unit) capsule 25 mcg PO DAILY Qty: 30 RF: 0 Changed furosemide [Lasix] 40 mg tablet 40 mg PO DAILY PRN (Reason: edema) Qty: 90 RF: 1 Novolin 70/30 U-100 Insulin 100 unit/mL (70-30) suspension 50 unit SUBCUT BID Qty: 0 RF: 0 Discontinued amlodipine 5 mg tablet 5 mg PO DAILY Qty: 90 RF: 3 carvedilol 25 mg tablet 25 mg PO BID Qty: 180 RF: 3 No Action losartan 50 mg tablet 50 mg PO DAILY Qty: 90 RF: 3 spironolactone 25 mg tablet 25 mg PO DAILY Qty: 30 RF: 2 Discharge Orders: Discharge Order (Routine); Ordered 05/04/21 Ordered By: Janet Koroma Admission Data Admit Date/Time: 05/03/21 21:31 Attending Provider: Landry Clayton Admit Provider: Erasmo Bazan Primary Care Provider: Lucila Rojas Other Providers: Erasmo Bazan Other Interventions: Discharge Summary Assessment (RN) Last Done: 05/04/21 14:48 Supervising Physician Co-Signing Physician Notes Patient seen and examined on the day of discharge. I agree with the discharge summary by Janet GUILLAUME. I have reviewed the chart including labs, imaging and plans for discharge. patient feeling much better with lower blood pressure readings no chest pain, breathing well, no fever, no nausea, headache is improved - Hypertensive urgency: agree with reducing Coreg to 12.5mg BID due to slow HR, increase Norvasc to 10mg and add Hydralazine 25mg BID low sodium diet, regular exercise, healthy stress relief follow up with PCP for BP check Coding Level of Care Code 36911 OBS Care - Discharge Diagnoses Hypertensive urgency I16.0 Hypomagnesemia E83.42 Leukocytosis D72.829
--- NOTE | 2021-05-04 19:07 | Ultrasound Report ---
US duplex renal artery CLINICAL HISTORY: Hypertension. Assess for renal artery stenosis. COMPARISON STUDY: None. FINDINGS: The visualized abdominal aorta is normal in caliber. The right kidney measures 10.4 cm. The right renal vein is patent. The patient deferred additional imaging. Therefore, the renal arteries a nd left kidney were not visualized. No right-sided hydronephrosis. IMPRESSION: 1. The patient was unable to tolerate the entire examination. Therefore, the renal arteries were not visualized. 2. No right-sided hydronephrosis. The left kidney was not visualized. ACT 112: Negative or not required by law. Electronically signed by: Agapito Lentz M.D. 05/04/2021 7:05 PM
[2021-05-04] MEDS ORDERED: carvediloL 12.5 MG TAB PO SCH (21:00)
== END 2021-05-04 14:43 | disposition home or self-care (01) ==
LOC: EDINP 16:39 → ED 16:39 → SUATTDRO 21:31 → EDINP 22:54

== ENCOUNTER 2021-11-13 17:03 | Observation (INO) ==
[2021-11-13 17:55] LABS: Partial Thromboplastin Time 26.8 Seconds (21.0-31.0); Prothrombin Time 10.6 Seconds (9.0-12.0)
[2021-11-13 18:08] LABS: Albumin Globulin Ratio 1.2 (0.9-2); Albumin Level 4.2 gm/dl (3.4-5.0); BUN Creatinine Ratio 17.6 (10-20); Bilirubin,Total 0.3 mg/dl (0.2-1.0); Calcium 9.6 mg/dl (8.5-10.1); Creatinine Clr Calc Pharmacy 60.2 ml/min; Est GFR (African American) 61.9 ml/min; Est GFR (Non-African American) 53.4 ml/min; Globulin 3.4 gm/dl (2.5-4.0); Magnesium 1.7 mg/dl (1.7-2.4); Total Protein 7.6 gm/dl (6.0-8.3)
--- NOTE | 2021-11-13 18:11 | XRay Report ---
XR chest 1V portable CLINICAL HISTORY: Shortness of breath. COMPARISON STUDY: Chest radiograph October 12, 2021. Chest CT performed earlier today. FINDINGS: Mild elevation of the right hemidiaphragm is unchanged. There is no pneumothorax or pleural effusion. Bilateral opacities reflect atelectasis or scarring. No consolidation to suggest pneumonia . No evidence for pulmonary edema. Mild cardiomegaly is unchanged. IMPRESSION: No acute cardiopulmonary findings. ACT 112: Negative or not required by law. Electronically signed by: Jayy Rojas M.D. 11/13/2021 6:10 PM
[2021-11-13 18:12] LABS: Troponin I High Sensitivity 4.5 pg/ml (0-14)
[2021-11-13 18:50] LABS: Basophils # (auto) 0.04 K/uL (0-0.2); Basophils % (auto) 0.3 %; Eosinophils # (auto) 0.44 K/uL (0-0.5); Eosinophils % (auto) 3.8 %; Hemoglobin 11.8 g/dL (12.0-16.0); Immature Granulocytes # (auto) 0.16 K/uL (0.00-0.02); Immature Granulocytes % (auto) 1.4 %; Lymphocytes # (auto) 1.71 K/uL (1.2-3.4); Mean Corpuscular Hemoglobin 25.5 pg (25-34); Mean Corpuscular Hgb Conc 31.1 g/dL (32-36); Mean Corpuscular Volume 82.3 fL (80-100); Mean Platelet Volume 10.7 fL (7.4-10.4); Monocytes # (auto) 0.72 K/uL (0.11-0.59); Monocytes % (auto) 6.3 %; Neutrophils # (auto) 8.36 K/uL (1.4-6.5); Neutrophils % (auto) 73.2 %; Platelet Count 378 K/uL (130-400); RDW Coefficient of Variation 17.4 % (11.5-14.5); RDW Standard Deviation 51.7 fL (36.4-46.3); Red Blood Count 4.62 M/uL (4.2-5.4); White Blood Count 11.43 K/uL (4.8-10.8)
[2021-11-13] MEDS ORDERED: ASPIRIN CHEW 324 MG PO STA (18:55)
--- NOTE | 2021-11-13 19:45 | History & Physical Report ---
Date of Service November 13, 2021 Assessment & Plan (1) Dyspnea on exertion: Plan: This is a 76-year-old woman with a history of hypertension, polymyalgia rheumatica, TIA, GERD, T2DM, CHF, LEELEE, fibromyalgia, subclinical hypothyroidism, and pulmonary nodules who presented to [facility] for evaluation of progressing shortness of breath with exertion over 2-3 weeks after an acute mixed upper/lower respiratory infection (by report). She is hemodynamically stable. Dyspnea on Exertion Patient reporting 2 to 3 weeks of progressive shortness of breath that is resolved with rest, no associated chest pain, that began after reported bout of bronchitis (which is now resolved) Work-up to date as follows: -Physical exam not revealing any evidence of hypervolemia or crackles/wheezes; large body habitus noted -Persistent mild anemia at 11.8 that is unchanged compared to prior -High-sensitivity troponin negative on arrival, ECG without acute repolarization/conduction abnormalities -Chest CT demonstrating stable, unchanged pulmonary nodules, otherwise no acute processes within the chest -RN walked around ED; saturations remained in mid/low 90s with observed +significant JETT, no CP Etiology somewhat unclear; at present, primary suspicion is postinfectious deconditioning, possibly without a component of OHS. There does not appear to be any evidence of active acute HFpEF, pulmonary infection, ACS, or objective/diagnostic findings concerning for VTE. She has no known history of pulmonary disease. She has no previous history of pulmonary hypertension on echo 04/2021. Only medication change within the last month was reduced prednisone from 5 mg to discontinuation for PMR. Anemia has been stable. Recheck TTE in a.m. with careful attention to R heart function/appearance; also check BNP now Given relatively negative work-up to this point, opt to collect more information overnight with nocturnal pulse oximetry; patient noted to have history of LYNDA in the past, no active use of CPAP Consider PFTs as outpatient Check iron panel in a.m., though anemia looks quite mild and stable No acute indication for pulmonary anti-inflammatories, such as azithromycin or prednisone. We will continue to consider as work-up is ongoing. (2) HTN (hypertension): Plan: Hypertension Continue home agents: Amlodipine, Coreg, losartan, spironolactone (3) PMR (polymyalgia rheumatica): Plan: Fibromyalgia/polymyalgia rheumatica Flexeril as needed No longer on home prednisone, weened off over last month (4) Sleep apnea: Plan: Reported history, not currently on CPAP With ongoing dyspnea on exertion, with otherwise negative work-up, obtain nocturnal pulse oximetry tonight (5) GERD (gastroesophageal reflux disease): Plan: GERD Continue home PPI (6) Pulmonary nodules: Plan: Pulmonary nodules Stable on CT chest, no changes. Continue outpatient follow-up. (7) Type 2 diabetes mellitus: Plan: Type 2 diabetes Last A1c: 8.2% in 07/2021 Hold home oral agents - metformin Insulin regimen: Continue NovoLog 70/30 for now, reduce to 2/3 home dose -- initiate 58U/day while here ACHS checks, consider intensification of regimen PRN Check A1c in AM (8) Chronic diastolic CHF (congestive heart failure): Plan: HFpEF Last TTE in 05/09 demonstrating moderate concentric LVH with hyperdynamic LV, estimated EF 70%; mild left atrial dilation Appears euvolemic on exam. No evidence of acute HFpEF. Check BNP. Repeat TTE in a.m. Continue Coreg, spironolactone (9) Iron deficiency anemia: Plan: Appears stable on admission labs compared to previous. Does have h/o GIB, no bowel issues reported recently Recheck iron panel in a.m. (10) Fibromyalgia: Plan: Fibromyalgia/polymyalgia rheumatica Flexeril as needed No longer on home prednisone, weened off over last month (11) Subclinical hypothyroidism: Plan: Hypothyroidism TSH in 09/2021 at 1.4 -- recheck in AM with ongoing somewhat unclear sxs Continue levothyroxine Plan: Code: Full code Dispo: MS/Tele Prophylaxis: Lovenox Diet: Heart healthy History of Present Illness Primary Care Provider: Lucila Rojas MD This is a 76-year-old woman with a history of hypertension, polymyalgia rheumatica, TIA, GERD, T2DM, CHF, LEELEE, fibromyalgia, subclinical hypothyroidism, and pulmonary nodules who presented to [facility] for evaluation of worsening dyspnea on exertion. Patient says that over the last 2 to 3 weeks, she has been feeling progressively more winded with any sort of activity. She says she can, at most, make it for minute walking around before she feels extremely dyspneic. She denies any chest pain or pressure with this. Resolves with rest. She says that approximately 3 to 4 weeks ago, she did have a bout of "bronchitis", which she described as nasal and throat congestion with associated coughing. She did multiple COVID test at home, which were negative. She denies any fevers, chills, night sweats throughout this time, or since. She denies any nausea or vomiting. She says that approximately 2 weeks ago, she did have a single episode of substernal, dull chest pain that she associated with indigestionas her heartburn was flaring at that time. She said that it may have made her breathing worse. It lasted for the rest of the night before going away when she went to bed. She has not had any chest pain since. She denies any having chest pain before this episode. She has been weaning off her prednisone for PMR. She stopped this about 3 to 4 weeks ago. Otherwise, no recent medication changes. She continues to take Lasix 10 mg daily. She declines any changes with her diet. She denies any new swelling in her legs. She denies any history of blood clots. Denies any lengthy travel, including in the car or on an airplane. Denies history of blood clots. Socially, she denies any history of tobacco abuse. She denies any history of lung disease. She denies alcohol or recreational drug use. Medications reviewed and include albuterol as needed, allopurinol, amlodipine 10, aspirin 81, Coreg 12.5 twice daily, Celebrex, Flexeril as needed, NPH 7030, 80-90 units twice daily, Synthroid, losartan 50, metformin 1 g twice daily, Protonix, spironolactone 50 mg daily. Upon arrival in the emergency department, patient was noted to be hypertensive to 186/70 with otherwise normal respiratory rate and oxygen saturation. She did not require oxygen supplementation. Labs were notable for persistent normocytic anemia at 12, white count at 11.4 with mild left shift, no appreciable abnormalities on basic chemistries and liver function. COVID-negative. Chest CT demonstrated no significant changes in her stable bilateral pulmonary nodules; there were no findings of active disease in the chest. Thoracic x-ray demonstrated multilevel degenerative changes. ECG demonstrated left axis deviation with borderline evidence for left ventricular hypertrophy by voltage in aVL. Otherwise no conduction or repolarization abnormalities. Troponin n egative. She was given aspirin 324 upon arrival to the ER. Allergies Allergy/AdvReac Type Severity Reaction Status Date / Time Iodinated Contrast Media Allergy Severe ANAPHYLAXIS Verified 11/13/21 18:45 /CONVULSION S sumatriptan Allergy Severe SOB,INCREASED Verified 11/13/21 18:45 HEARTRATE Bactrim Allergy Intermediate hives Verified 03/15/18 10:08 ciprofloxacin Allergy Intermediate hives Verified 11/13/21 18:45 metronidazole Allergy Intermediate HIVES Verified 11/13/21 18:45 sulfamethoxazole Allergy Intermediate hives Verified 11/13/21 18:45 trimethoprim Allergy Intermediate hives Verified 11/13/21 18:45 adhesive AdvReac Severe SEVERE Verified 11/13/21 18:45 BURNING BLISTERS tramadol AdvReac Mild FATIGUE Verified 11/13/21 18:45 Home Medications Medication Instructions Recorded Confirmed Type lancets 30 gauge (OneTouch [place] #100 ea 08/25/19 10/03/21 Rx Lancets) aspirin 81 mg tablet,delayed 81 mg PO HS 02/27/20 11/13/21 History release (Adult Aspirin Regimen) magnesium oxide 400 mg PO HS 05/28/21 11/13/21 History blood sugar diagnostic #200 ea 07/23/21 10/03/21 Rx insulin human U-100 NPH-regulr 100 unit SUBCUT BID #60 ml 07/23/21 11/13/21 Rx 70-30 mix 100 unit/mL subcutaneous susp (Novolin 70/30 U-100 Insulin) insulin syringe-needle U-100 1 mL #200 ea 07/30/21 10/03/21 Rx 31 gauge x 5/16" (BD Insulin Syringe Ultra-Fine) metformin 1,000 mg tablet 1,000 mg PO BID #180 tab 07/31/21 11/13/21 Rx pantoprazole 40 mg tablet,delayed 40 mg PO BID #180 tab 08/26/21 11/13/21 Rx release allopurinol 100 mg tablet 100 mg PO QAM 10/12/21 11/13/21 History amlodipine 10 mg tablet (Norvasc) 10 mg PO HS 10/12/21 11/13/21 History cholecalciferol (vitamin D3) 25 25 mcg PO HS 10/12/21 11/13/21 History mcg (1,000 unit) capsule levothyroxine 25 mcg tablet 25 mcg PO DAILYBB 10/12/21 11/13/21 History losartan 50 mg tablet 50 mg PO QAM 10/12/21 11/13/21 History prednisone 10 mg tablet 5 mg PO QAM 10/12/21 11/13/21 History spironolactone 50 mg tablet 50 mg PO QAM 10/12/21 11/13/21 History albuterol sulfate 90 mcg/actuation 2 puff INHALATION Q6H PRN #8.5 g 11/08/21 11/13/21 Rx aerosol inhaler carvedilol 12.5 mg tablet 12.5 mg PO BID 11/13/21 11/13/21 History celecoxib 200 mg capsule (Celebrex) 200 mg PO DAILY 11/13/21 11/13/21 History cyclobenzaprine 5 mg tablet 5 - 10 mg PO Q8H PRN 11/13/21 11/13/21 History Past Med/Surg History Medical History Bilateral tinnitus Chronic diastolic CHF (congestive heart failure) Diverticulosis Fibromyalgia GERD (gastroesophageal reflux disease) GIB (gastrointestinal bleeding) ulcerated hemangioma resected 2018 History of breast cancer RT (SURGERY WITH RADIATION) History of kidney stones HTN (hypertension) Hypomagnesemia Iron deficiency anemia Osteoarthritis Overactive bladder PMR (polymyalgia rheumatica) Pulmonary nodules Sleep apnea NO DEVICE "MILD" SNHL (sensorineural hearing loss) Spinal stenosis Subclinical hypothyroidism Transient ischemic attack (TIA) x 3 (2014, 2015, 2019) NO CURRENT PROBLEMS FROM EVENT Type 2 diabetes mellitus Surgical History H/O lithotripsy H/O lumpectomy RT X 2 History of arthroscopy RT KNEE History of bilateral tubal ligation History of breast biopsy History of cardiac cath 8 YEARS AGO -NO STENTS AT [facility] WITH DR. REGALADO History of colonoscopy History of esophagogastroduodenoscopy (EGD) History of tooth extraction S/P appendectomy Family History Grandmother Family history of diabetes mellitus Father Family history of diabetes mellitus Lung cancer Lung disease Mother MDP (myeloproliferative disorder) Family history of diabetes mellitus Glaucoma Hypertension Gall bladder disease Unknown Diabetes Leukemia Myocardial infarction Other No family history of adverse response to anesthesia Social History Smoking Status: Never smoker Second Hand Exposure: Yes ( A CHILD); Hx Alcohol Use: No Hx Substance Use: No Preferred Language: Telugu Communication Ability: Effective Installer Metal Flooring Required: No Beliefs That Will Affect Care: None marital status: marital status details: No children Current Living Situation: Spouse current occupational status: retired 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 Obesity noted. HEENT: NCAT. - Eyes - Sclera are white, anicteric, and without injection. PERRL. - Mouth - MMM with no tonsillar edema or exudates. - Neck - no obvious JVD but difficult to assess in setting of habitus Cardiac: Normal rate and regular rhythm; S1 and S2 present with grade 1/6 YAMINI along LLSB Pulmonary: Good respiratory effort with symmetric expansion of the chest. No use of accessory muscles. Lungs were clear to auscultation bilaterally with no crackles or wheezes. Abdominal: Normoactive bowel sounds. Abdomen was soft, nondistended, and non- tender to palpation. Extremities: Upper and lower extremities are warm and well perfused. No appreci able lower extremity swelling. Psych: Well-developed, well-nourished, appropriately dressed for occasion. Behavior is cooperative and appropriate. Affect is WNL. Insight is appropriate. Results & Data Results & Data ([facility]) Vital Signs (Past 12 Hours) Vital Signs Temp Pulse Resp BP Pulse Ox 11/13/21 17:10 97 11/13/21 17:06 36.6 C 74 20 186/70 H 95 11/13/21 17:03 20 97 Supervising Physician Co-Signing Physician Notes Attending addendum: I have physically seen this patient, have supervised the medical residents activities, and agree with the H&P unless as otherwise noted. Assessment and Plan: Dyspnea on exertion with unclear etiology- the patient will be admitted to telemetry for serial cardiac enzymes, serial EKG's, cardiac rhythm monitoring and a 2-D echocardiogram with Dopplers. Initial work-up negative for cardiac enzymes, chest CT, unchanging mild anemia. Issue may be conditioning/deconditioning/PMR/fibromyalgia associated PMR/fibromyalgia- Continue Flexeril May be ultimate reason for patient's dyspnea on exertion No recent prednisone use history May still deserve a trial of stress dose hydrocortisone IV Sleep apnea- Not on CPAP Poor sleep may be a contributing factor to the main symptoms Diabetes mellitus- Most recent hemoglobin A1c was 8.2 Poorly controlled diabetes may also be contributing factor to primary symptoms Will consult PT/OT Remaining orders and notations as noted Resident Activity Tracking Resident Involvement: Resident Care Provided Care Provided: Adult Hospital Medicine (1) Sleep apnea Sleep apnea type: obstructive Qualified Code(s): G47.33 - Obstructive sleep apnea (adult) (pediatric) (2) Type 2 diabetes mellitus Diabetes mellitus complication status: with hyperglycemia Diabetes mellitus watermelon inspector insulin use: with watermelon inspector use Qualified Code(s): E11.65 - Type 2 diabetes mellitus with hyperglycemia; Z79.4 - custodial (current) use of insulin
--- NOTE | 2021-11-13 20:10 | Emergency Department Note ---
History of Present Illness General Chief Complaint: Shortness of Breath/Dyspnea Stated Complaint: SOB Time Seen by Provider: 11/13/21 18:30 History of Present Illness Provider Complaint: shortness of breath Onset (ago): week(s) (1) Severity: moderate Consistency/Duration: + progressively worsening Relieved By: + rest Exacerbated By: + exertion Context: + occurred during exertion Known history of: congestive heart failure Associated symptoms: + chest pain (With exertion. Substernal and left-sided none currently while at rest.); no pain with inspiration, no fever, no wheezing, no sputum production, no orthopnea, no lower extremity pain, no polyuria, no hemoptysis, no nausea/vomiting, no syncope or no abdominal pain Treatment prior to arrival: bronchodilator HPI Narrative: Patient denies any recent travel, exogenous hormone usage, recent surgery, recent trauma, or hemoptysis. Related Data Home oxygen amount: none Home Medications Medication Instructions Recorded Confirmed Type lancets 30 gauge ([employer] #100 ea 08/25/19 10/03/21 Rx Lancets) aspirin 81 mg tablet,delayed 81 mg PO HS 02/27/20 11/13/21 History release (Adult Aspirin Regimen) magnesium oxide 400 mg PO HS 05/28/21 11/13/21 History blood sugar diagnostic #200 ea 07/23/21 10/03/21 Rx insulin human U-100 NPH-regulr 100 unit SUBCUT BID #60 ml 07/23/21 11/13/21 Rx 70-30 mix 100 unit/mL subcutaneous susp (Novolin 70/30 U-100 Insulin) insulin syringe-needle U-100 1 mL #200 ea 07/30/21 10/03/21 Rx 31 gauge x 5/16" (BD Insulin Syringe Ultra-Fine) metformin 1,000 mg tablet 1,000 mg PO BID #180 tab 07/31/21 11/13/21 Rx pantoprazole 40 mg tablet,delayed 40 mg PO BID #180 tab 08/26/21 11/13/21 Rx release allopurinol 100 mg tablet 100 mg PO QAM 10/12/21 11/13/21 History amlodipine 10 mg tablet (Norvasc) 10 mg PO HS 10/12/21 11/13/21 History cholecalciferol (vitamin D3) 25 25 mcg PO HS 10/12/21 11/13/21 History mcg (1,000 unit) capsule levothyroxine 25 mcg tablet 25 mcg PO DAILYBB 10/12/21 11/13/21 History losartan 50 mg tablet 50 mg PO QAM 10/12/21 11/13/21 History prednisone 10 mg tablet 5 mg PO QAM 10/12/21 11/13/21 History spironolactone 50 mg tablet 50 mg PO QAM 10/12/21 11/13/21 History albuterol sulfate 90 mcg/actuation 2 puff INHALATION Q6H PRN #8.5 g 11/08/21 11/13/21 Rx aerosol inhaler carvedilol 12.5 mg tablet 12.5 mg PO BID 11/13/21 11/13/21 History celecoxib 200 mg capsule (Celebrex) 200 mg PO DAILY 11/13/21 11/13/21 History cyclobenzaprine 5 mg tablet 5 - 10 mg PO Q8H PRN 11/13/21 11/13/21 History Allergies Allergy/AdvReac Type Severity Reaction Status Date / Time Iodinated Contrast Media Allergy Severe ANAPHYLAXIS Verified 11/13/21 18:45 /CONVULSION S sumatriptan Allergy Severe SOB,INCREASED Verified 11/13/21 18:45 HEARTRATE Bactrim Allergy Intermediate hives Verified 03/15/18 10:08 ciprofloxacin Allergy Intermediate hives Verified 11/13/21 18:45 metronidazole Allergy Intermediate HIVES Verified 11/13/21 18:45 sulfamethoxazole Allergy Intermediate hives Verified 11/13/21 18:45 trimethoprim Allergy Intermediate hives Verified 11/13/21 18:45 adhesive AdvReac Severe SEVERE Verified 11/13/21 18:45 BURNING BLISTERS tramadol AdvReac Mild FATIGUE Verified 11/13/21 18:45 Past Med/Surg History Medical History Bilateral tinnitus Chronic diastolic CHF (congestive heart failure) Diverticulosis Fibromyalgia GERD (gastroesophageal reflux disease) GIB (gastrointestinal bleeding) ulcerated hemangioma resected 2019 History of breast cancer RT (SURGERY WITH RADIATION) History of kidney stones HTN (hypertension) Hypomagnesemia Iron deficiency anemia Osteoarthritis Overactive bladder PMR (polymyalgia rheumatica) Pulmonary nodules Sleep apnea NO DEVICE "MILD" SNHL (sensorineural hearing loss) Spinal stenosis Subclinical hypothyroidism Transient ischemic attack (TIA) x 3 (2014, 2015, 2019) NO CURRENT PROBLEMS FROM EVENT Type 2 diabetes mellitus Surgical History H/O lithotripsy H/O lumpectomy RT X 2 History of arthroscopy RT KNEE History of bilateral tubal ligation History of breast biopsy History of cardiac cath 8 YEARS AGO -NO STENTS AT [facility] WITH DR. REGALADO History of colonoscopy History of esophagogastroduodenoscopy (EGD) History of tooth extraction S/P appendectomy Family History Grandmother Family history of diabetes mellitus Father Family history of diabetes mellitus Lung cancer Lung disease Mother MDP (myeloproliferative disorder) Family history of diabetes mellitus Glaucoma Hypertension Gall bladder disease Unknown Diabetes Leukemia Myocardial infarction Other No family history of adverse response to anesthesia Social History Smoking Status: Never smoker Second Hand Exposure: Yes ( A CHILD); Hx Alcohol Use: No Hx Substance Use: No Preferred Language: Guatemalan Communication Ability: Effective Specimen Accessioner Required: No Beliefs That Will Affect Care: None marital status: marital status details: No children Current Living Situation: Spouse current occupational status: retired 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 [employer] Feels Safe at Home: Yes Assistive Devices: None Review of Systems A total of 10 systems reviewed and were otherwise negative Physical Exam Vital Signs: Vital Signs - 24 hr 11/13/21 17:03 11/13/21 17:06 11/13/21 17:10 Temperature 36.6 C Temperature Source Oral Pulse Rate 74 Pulse Rhythm Regular Pulse Strength Normal Respiratory Rate 20 20 Respiratory Effort / Characteristics Non-Labored Non-Labored Sponta neous Non-Labored Respiratory Depth Normal Normal Respiratory Patter n Regular Blood Pressure 186/70 H Blood Pressure Donna n 108 Blood Pressure Pos ition Sitting Pulse Oximetry 97 95 97 Oxygen Delivery Me thod Room Air Room Air Room Air Sepsis Recent Feve r Within 48 Hours No Sepsis New/Unexpla ined Change in Men larry Status No Sepsis Action Take n by Nursing No Action Required Physical Exam: Physical Exam GENERAL: She is oriented to person, place, and time. She appears well-developed and well-nourished. She does not appear distressed. HENT: Exam performed. -Head: Normocephalic and atraumatic. -Right Ear: External ear normal. No mastoid tenderness. -Left Ear: External ear normal. No mastoid tenderness. -Mouth/Throat: The oropharynx is clear and moist. No trismus in the jaw. No dental abscesses or uvula swelling. No oropharyngeal exudate or tonsillar abscesses. EYES: Conjunctivae and EOM are normal. Pupils are equal, round, and reactive to light. Right eye exhibits no discharge. Left eye exhibits no discharge. No scleral icterus. NECK: Normal range of motion. Neck supple. No JVD present. No spinous process t enderness present. No carotid bruit present. No rigidity. No tracheal deviation and normal range of motion present. No Brudzinski's sign and no Kernig's sign noted. CV: Normal rate, regular rhythm, normal heart sounds and intact distal pulses. There is no peripheral edema. Palpable radial pulses bue. PULM/CHEST: Effort normal and breath sounds normal. No respiratory distress. No stridor. She has no wheezes. She has no rales. -Chest Wall: She exhibits no tenderness. ABD: The abdomen is soft and obese Bowel sounds are normal. She has no distension. No mass is present. There is no tenderness. There is no rebound, no guarding, no Reynolds's sign and no tenderness at McBurney's point. Rovsig n egative MUSC/SKEL: Normal range of motion. There is no peripheral edema, tenderness or deformity. LYMPH: No cervical adenopathy. NEURO: She is alert and oriented to person, place, and time. She has normal strength. No cranial nerve deficit or sensory deficit. Coordination and gait normal. GCS eye subscore is 4. GCS verbal subscore is 5. GCS motor subscore is 6. Cerebellar tests wnl. SKIN: Skin is warm and dry. She is not diaphoretic. PSYCH: She has a normal mood and affect. Behavior is normal. Judgment and thought content normal. Course Course 1829: The patient was evaluated in room B7. A complete history and physical exam was performed Cardiac monitoring: An order was placed for continuous cardiac monitoring. The monitor shows a rate of 70 with sinus rhythm Patient was seen during a time of extreme volume and extreme acuity during the COVID-19 pandemic. Nursing triage protocols were initiated and labs were drawn by protocol in the triage area. 1900: Vital signs stable. Labs and imaging within normal limits. Patient states she still has exertional dyspnea. Patient has no PE risk factors. Patient was offered inpatient observation and she states she prefer inpatient observation as opposed to outpatient follow-up. [facility] hospitalist team will be contacted for admission. Administered Medications Discontinued Medications Aspirin (Aspirin Chew 324 Mg) 324 mg PO NOW STA Stop: 11/13/21 18:56 Last Admin: 11/13/21 19:03 Dose: 324 mg Documented by: [id number] Medical Decision Making Laboratory Data Result diagrams: 11/13/21 17:20 11/13/21 17:20 Lab Results 11/13/21 11/13/21 11/13/21 Range/Units 17:20 17:20 17:20 WBC 11.43 H (4.8-10.8) K/uL RBC 4.62 (4.2-5.4) M/uL Hgb 11.8 L (12.0-16.0) g/dL Hct 38.0 (37-47) % MCV 82.3 (80-100) fL MCH 25.5 (25-34) pg MCHC 31.1 L (32-36) g/dL RDW Std Deviation 51.7 H (36.4-46.3) fL RDW Coeff of Guevara 17.4 H (11.5-14.5) % Plt Count 378 (130-400) K/uL MPV 10.7 H (7.4-10.4) fL Immature Gran % (Auto) 1.4 % Neut % (Auto) 73.2 % Lymph % (Auto) 15.0 % [place] % (Auto) 6.3 % Eos % (Auto) 3.8 % Baso % (Auto) 0.3 % Neut # (Auto) 8.36 H (1.4-6.5) K/uL Lymph # (Auto) 1.71 (1.2-3.4) K/uL [place] # (Auto) 0.72 H (0.11-0.59) K/uL Eos # (Auto) 0.44 (0-0.5) K/uL Baso # (Auto) 0.04 (0-0.2) K/uL Immature Gran # (Auto) 0.16 H (0.00-0.02) K/uL PT 10.6 (9.0-12.0) Seconds INR 1.0 (0.9-1.1) APTT 26.8 (21.0-31.0) Seconds PTT Ratio 1.0 Sodium 140 (136-145) mmol/L Potassium 5.0 (3.5-5.1) mmol/L Chloride 107 (98-107) mmol/L Carbon Dioxide 22 (21-32) mmol/L Anion Gap 11 (3-11) BUN 18 (6-23) mg/dl Creatinine 1.02 (0.6-1.2) mg/dl Est Cr Clr Drug Dosing 60.2 ml/min Est GFR ( Amer) 61.9 ml/min Est GFR (Non-Af Amer) 53.4 ml/min BUN/Creatinine Ratio 17.6 (10-20) Glucose 104 H (70-99(Fasting)) mg/dl Calcium 9.6 (8.5-10.1) mg/dl Magnesium 1.7 (1.7-2.4) mg/dl Total Bilirubin 0.3 (0.2-1.0) mg/dl AST 19 (13-39) U/L ALT 19 (7-52) U/L Alkaline Phosphatase 39 (34-104) U/L Troponin I High Sens 4.5 (0-14) pg/ml Total Protein 7.6 (6.0-8.3) gm/dl Albumin 4.2 (3.4-5.0) gm/dl Globulin 3.4 (2.5-4.0) gm/dl Albumin/Globulin Ratio 1.2 (0.9-2) SARS-CoV-2, RNA, NAAT (NEGATIVE) 11/13/21 Range/Units 18:50 WBC (4.8-10.8) K/uL RBC (4.2-5.4) M/uL Hgb (12.0-16.0) g/dL Hct (37-47) % MCV (80-100) fL MCH (25-34) pg MCHC (32-36) g/dL RDW Std Deviation (36.4-46.3) fL RDW Coeff of Guevara (11.5-14.5) % Plt Count (130-400) K/uL MPV (7.4-10.4) fL Immature Gran % (Auto) % Neut % (Auto) % Lymph % (Auto) % [place] % (Auto) % Eos % (Auto) % Baso % (Auto) % Neut # (Auto) (1.4-6.5) K/uL Lymph # (Auto) (1.2-3.4) K/uL [place] # (Auto) (0.11-0.59) K/uL Eos # (Auto) (0-0.5) K/uL Baso # (Auto) (0-0.2) K/uL Immature Gran # (Auto) (0.00-0.02) K/uL PT (9.0-12.0) Seconds INR (0.9-1.1) APTT (21.0-31.0) Seconds PTT Ratio Sodium (136-145) mmol/L Potassium (3.5-5.1) mmol/L Chloride (98-107) mmol/L Carbon Dioxide (21-32) mmol/L Anion Gap (3-11) BUN (6-23) mg/dl Creatinine (0.6-1.2) mg/dl Est Cr Clr Drug Dosing ml/min Est GFR ( Amer) ml/min Est GFR (Non-Af Amer) ml/min BUN/Creatinine Ratio (10-20) Glucose (70-99(Fasting)) mg/dl Calcium (8.5-10.1) mg/dl Magnesium (1.7-2.4) mg/dl Total Bilirubin (0.2-1.0) mg/dl AST (13-39) U/L ALT (7-52) U/L Alkaline Phosphatase (34-104) U/L Troponin I High Sens (0-14) pg/ml Total Protein (6.0-8.3) gm/dl Albumin (3.4-5.0) gm/dl Globulin (2.5-4.0) gm/dl Albumin/Globulin Ratio (0.9-2) SARS-CoV-2, RNA, NAAT NEGATIVE (NEGATIVE) Imaging Data Radiologist's Impression: Chest X-Ray 11/13/21 17:10 XR chest 1V portable CLINICAL HISTORY: Shortness of breath. COMPARISON STUDY: Chest radiograph October 12, 2021. Chest CT performed earlier today. FINDINGS: Mild elevation of the right hemidiaphragm is unchanged. There is no pneumothorax or pleural effusion. Bilateral opacities reflect atelectasis or scarring. No consolidation to suggest pneumonia. No evidence for pulmonary edema. Mild cardiomegaly is unchanged. IMPRESSION: No acute cardiopulmonary findings. ACT 112: Negative or not required by law. Electronically signed by: Jayy Rojas M.D. 11/13/2021 6:10 PM ECG Data Interpretation: Sinus rhythm with rate of 69. UT QRS and QTc intervals within normal limits. No ST elevation or ST depression. Left ventricular hypertrophy present. MDM Narrative Vital signs stable. Labs and imaging within normal limits. Patient states she still has exertional dyspnea. Patient has no PE risk factors. Patient was offered inpatient observation and she states she prefer inpatient observation as opposed to outpatient follow-up. [facility] hospitalist team will be contacted for admission. Impression & Plan JETT (dyspnea on exertion) Discharge Plan Visit Data Chief Complaint: Shortness of Breath/Dyspnea Stated Complaint: SOB Discharge Problem: JETT (dyspnea on exertion) Patient Disposition: Being Evaluated by Hospitalist Forms Stand Alone Forms: My [facility] Prescriptions Prescriptions: No Action (DME) lancets [OneTouch Delica Lancets] 30 gauge misc See Rx Instructions .ROUTE .MEDSUPPLY Qty: 100 RF: 5 magnesium oxide 400 mg magnesium tablet 400 mg PO HS RF: 0 Novolin 70/30 U-100 Insulin 100 unit/mL (70-30) suspension 100 unit SUBCUT BID Qty: 60 RF: 11 (DME) blood sugar diagnostic Strip See Rx Instructions .ROUTE .MEDSUPPLY Qty: 200 RF: 5 (DME) insulin syringe-needle U-100 [BD Insulin Syringe Ultra-Fine] 1 mL 31 gauge x 5/16 syringe See Rx Instructions .Route Qty: 200 RF: 3 metformin 1,000 mg tablet 1,000 mg PO BID Qty: 180 RF: 3 pantoprazole 40 mg tablet,delayed release (DR/EC) 40 mg PO BID Qty: 180 RF: 3 albuterol sulfate 90 mcg/actuation HFA aerosol inhaler 2 puff inhalation Q6H PRN (Reason: shortness of breath or wheezing) Qty: 8.5 RF: 3 aspirin [Adult Aspirin Regimen] 81 mg tablet,delayed release (DR/EC) 81 mg PO HS RF: 0 losartan 50 mg tablet 50 mg PO QAM RF: 0 prednisone 10 mg tablet 5 mg PO QAM RF: 0 allopurinol 100 mg tablet 100 mg PO QAM RF: 0 levothyroxine 25 mcg tablet 25 mcg PO DAILYBB RF: 0 amlodipine [Norvasc] 10 mg tablet 10 mg PO HS RF: 0 spironolactone 50 mg tablet 50 mg PO QAM RF: 0 cholecalciferol (vitamin D3) 25 mcg (1,000 unit) capsule 25 mcg PO HS RF: 0 cyclobenzaprine 5 mg tablet 5 - 10 mg PO Q8H PRN (Reason: muscle spasm) RF: 0 celecoxib [Celebrex] 200 mg capsule 200 mg PO DAILY RF: 0 carvedilol 12.5 mg tablet 12.5 mg PO BID RF: 0 Referrals Referrals: Lucila Rojas MD [Primary Care Provider] -
[2021-11-13] MEDS ORDERED: ACETAMINOPHEN 325 MG TAB PO PRN (20:20)
[2021-11-13] MEDS ORDERED: ALBUT/IPRATROP 3MG/0.5MG NEB 3 ML VIAL NEB STA (20:36)
[2021-11-13] MEDS ORDERED: CARBOHYDRATES FOR HYPOGLYCEMIA PO PRN (22:09)
[2021-11-13] MEDS ORDERED: ALBUTEROL HFA 8 GM INHALER INH PRN (22:09)
[2021-11-13] MEDS ORDERED: CHOLECALCIFEROL 1,000 UNITS 25 MCG TAB PO SCH (22:09)
[2021-11-13] MEDS ORDERED: CYCLOBENZAPRINE HCL 5 MG TAB PO PRN (22:09)
[2021-11-13] MEDS ORDERED: GLUCOSE 10 TABS/TUBE PO PRN (22:09)
[2021-11-13] MEDS ORDERED: GLUCAGON FOR INJ 1 MG VIAL SQ PRN (22:09)
[2021-11-13] MEDS ORDERED: MAGNESIUM OXIDE 400 MG TAB PO SCH (22:09)
[2021-11-13] MEDS ORDERED: GLUCOSE 40% GEL 15 GM TUBE PO PRN (22:09)
[2021-11-13] MEDS ORDERED: amLODIPine BESYLATE 5 MG TAB PO SCH (22:09)
[2021-11-13] MEDS ORDERED: DEXTROSE 50% 50 ML SYRINGE IV PRN (22:09)
[2021-11-13] MEDS ORDERED: ASPIRIN 81 MG ECTAB PO SCH (22:09)
[2021-11-13] MEDS: ENOXAPARIN INJ 40 MG/0.4 ML SYR SQ SCH (22:55)
[2021-11-13] MEDS: PANTOprazole 40 MG TAB PO SCH (23:26)
[2021-11-13] MEDS: metFORMIN HCL 500 MG TAB PO SCH (23:27)
[2021-11-13] MEDS: carvediloL 12.5 MG TAB PO SCH (23:28)
[2021-11-13] MEDS: INSULIN HUMAN 70% NPH/30% REGULAR SQ SCH (23:31)
[2021-11-14 06:26] LABS: Basophils # (auto) 0.03 K/uL (0-0.2); Basophils % (auto) 0.3 %; Eosinophils # (auto) 0.37 K/uL (0-0.5); Eosinophils % (auto) 3.5 %; Hematocrit (blood only) 33.7 % (37-47); Hemoglobin 10.4 g/dL (12.0-16.0); Immature Granulocytes # (auto) 0.11 K/uL (0.00-0.02); Lymphocytes # (auto) 1.92 K/uL (1.2-3.4); Lymphocytes % (auto) 18.2 %; Mean Corpuscular Hemoglobin 25.2 pg (25-34); Mean Corpuscular Hgb Conc 30.9 g/dL (32-36); Mean Corpuscular Volume 81.6 fL (80-100); Mean Platelet Volume 10.9 fL (7.4-10.4); Monocytes # (auto) 0.63 K/uL (0.11-0.59); Neutrophils # (auto) 7.51 K/uL (1.4-6.5); Platelet Count 341 K/uL (130-400); RDW Coefficient of Variation 17.2 % (11.5-14.5); RDW Standard Deviation 51.6 fL (36.4-46.3); Red Blood Count 4.13 M/uL (4.2-5.4); White Blood Count 10.57 K/uL (4.8-10.8)
[2021-11-14] MEDS ORDERED: LEVOTHYROXINE SODIUM 25 MCG TABLET PO SCH (06:30)
[2021-11-14 06:34] LABS: Calcium 9.1 mg/dl (8.5-10.1); Creatinine Clr Calc Pharmacy 72.4 ml/min; Est GFR (African American) 77.1 ml/min; Est GFR (Non-African American) 66.6 ml/min; Potassium 4.3 mmol/L (3.5-5.1)
[2021-11-14 06:50] LABS: Ferritin 11.4 ng/ml (8-388)
[2021-11-14 06:52] LABS: Estimated Average Glucose 154 mg/dl
[2021-11-14] MEDS: metFORMIN HCL 500 MG TAB PO SCH (07:28)
[2021-11-14] MEDS: INSULIN HUMAN 70% NPH/30% REGULAR SQ SCH ×2 (07:50→17:17)
[2021-11-14] MEDS ORDERED: ASPIRIN 81 MG ECTAB PO SCH (09:00)
[2021-11-14] MEDS ORDERED: allopurinoL 100 MG TAB PO SCH (09:00)
[2021-11-14] MEDS ORDERED: SPIRONOLACTONE 25 MG TAB PO SCH (09:00)
[2021-11-14] MEDS ORDERED: CeleBREX 200 MG CAP PO SCH (09:00)
[2021-11-14] MEDS ORDERED: LOSARTAN POTASSIUM 50 MG TAB PO SCH (09:00)
[2021-11-14] MEDS: PANTOprazole 40 MG TAB PO SCH (10:20)
[2021-11-14] MEDS: carvediloL 12.5 MG TAB PO SCH (10:20)
[2021-11-14] MEDS: ENOXAPARIN INJ 40 MG/0.4 ML SYR SQ SCH (10:21)
[2021-11-14] MEDS ORDERED: IRON SUCROSE 200 MG in 0.9 % SODIUM CHLORIDE 100 ML IV ONE (11:15)
--- NOTE | 2021-11-14 11:18 | XCELERA ---
[id number]
[2021-11-14] MEDS ORDERED: METOPROLOL TARTRATE 1 MG/ML VIAL IV ONE (15:12)
[2021-11-14] MEDS ORDERED: ATROPINE SULFATE 0.1 MG/ML 10ML SYR IV ONE (15:12)
[2021-11-14] MEDS ORDERED: DOBUTamine HCL 12.5 MG/ML 20 ML VIAL IV ONE (15:12)
--- NOTE | 2021-11-14 16:32 | XCELERA ---
[id number]
--- NOTE | 2021-11-14 18:29 | Discharge Summary ---
Date of Service November 14, 2021 Admission HPI Per Admitting Provider This is a 76-year-old woman with a history of hypertension, polymyalgia rheumatica, TIA, GERD, T2DM, CHF, LEELEE, fibromyalgia, subclinical hypothyroidism, and pulmonary nodules who presented to [facility] for evaluation of worsening dyspnea on exertion. Patient says that over the last 2 to 3 weeks, she has been feeling progressively more winded with any sort of activity. She says she can, at most, make it for minute walking around before she feels extremely dyspneic. She denies any chest pain or pressure with this. Resolves with rest. She says that approximately 3 to 4 weeks ago, she did have a bout of "bronchitis", which she described as nasal and throat congestion with associated coughing. She did multiple COVID test at home, which were negative. She denies any fevers, chills, night sweats throughout this time, or since. She denies any nausea or vomiting. She says that approximately 2 weeks ago, she did have a single episode of substernal, dull chest pain that she associated with indigestionas her heartburn was flaring at that time. She said that it may have made her breathing worse. It lasted for the rest of the night before going away when she went to bed. She has not had any chest pain since. She denies any having chest pain before this episode. She has been weaning off her prednisone for PMR. She stopped this about 3 to 4 weeks ago. Otherwise, no recent medication changes. She continues to take Lasix 10 mg daily. She declines any changes with her diet. She denies any new swelling in her legs. She denies any history of blood clots. Denies any lengthy travel, including in the car or on an airplane. Denies history of blood clots. Socially, she denies any history of tobacco abuse. She denies any history of lung disease. She denies alcohol or recreational drug use. Medications reviewed and include albuterol as needed, allopurinol, amlodipine 10, aspirin 81, Coreg 12.5 twice daily, Celebrex, Flexeril as needed, NPH 7030, 80-90 units twice daily, Synthroid, losartan 50, metformin 1 g twice daily, Protonix, spironolactone 50 mg daily. Upon arrival in the emergency department, patient was noted to be hypertensive to 186/70 with otherwise normal respiratory rate and oxygen saturation. She did not require oxygen supplementation. Labs were notable for persistent normocytic anemia at 12, white count at 11.4 with mild left shift, no appreciable abnormalities on basic chemistries and liver function. COVID-negative. Chest CT demonstrated no significant changes in her stable bilateral pulmonary nodules; there were no findings of active disease in the chest. Thoracic x-ray demonstrated multilevel degenerative changes. ECG demonstrated left axis deviation with borderline evidence for left ventricular hypertrophy by voltage in aVL. Otherwise no conduction or repolarization abnormalities. Troponin negative. She was given aspirin 324 upon arrival to the ER. Principal Diagnosis Dyspnea on exertion Discharge Exam Awake alert oriented x3 pleasant no distress. HEENT normocephalic atraumatic mucous membranes moist. Breathing unlabored no accessory muscle use, lungs are clear without rales rhonchi or wheezes good effort no conversational dyspnea. Cardio regular somewhat distant. Skin shows no rashes no pallor or icterus. N euro without focal deficits. Discharge Data Allergies Allergy/AdvReac Type Severity Reaction Status Date / Time Iodinated Contrast Media Allergy Severe ANAPHYLAXIS Verified 11/13/21 18:45 /CONVULSION S sumatriptan Allergy Severe SOB,INCREASED Verified 11/13/21 18:45 HEARTRATE Bactrim Allergy Intermediate hives Verified 03/15/18 10:08 ciprofloxacin Allergy Intermediate hives Verified 11/13/21 18:45 metronidazole Allergy Intermediate HIVES Verified 11/13/21 18:45 sulfamethoxazole Allergy Intermediate hives Verified 11/13/21 18:45 trimethoprim Allergy Intermediate hives Verified 11/13/21 18:45 adhesive AdvReac Severe SEVERE Verified 11/13/21 18:45 BURNING BLISTERS tramadol AdvReac Mild FATIGUE Verified 11/13/21 18:45 Consultations 11/13/21 18:56 ED Decision to Admit Stat Hospital Course (1) Dyspnea on exertion: Main complaint on presentation was progressive dyspnea on exertion particularly over the last few weeks -Coronary etiology ruled out with reassuring echo, and negative stress echo for any ischemic findings at 90% of max predicted heart rate -Chest CT with stable findings in regard to nodules, and no acute chest disease noted. Of note this was done without contrast, so PE is not ruled out by this methodclinically at the bedside PEs seemed fairly unlikely, clinical scoring for PE pretest probability was low, heart rate less than 100 carries a very good negative predictive value, not hypoxic reassuring as wellto all of that clinically bile counts PE has been ruled out. 2 added for completeness, I did o rder a D-dimeralthough again I did not expect any PE like findings, but the patient declined further lab work given that she was understandably anxious for discharge -Can consider PFTs as an outpatient -Strongly suspect dyspnea on exertion is multifactorial: She had a recent respiratory infection with loss of smell, and though while a home COVID test was negative, obviously with the newer variants a false negative is far more likely. I suspect she did have COVID about a month ago, and if not she certainly still had some other significant respiratory infectionI suspect she is probably still recovering from this some. On top of that, there is highly likely a strong degree of deconditioning. On top of that, she has very poor sleep both in terms of quantity/quality (she notes a lot of nights she only sleeps about 40 minutes and then she is up the rest of the night) as well as in terms of quality with her sleep/breathinguntreated sleep apnea likely a contributor, and resting echo did show a mild degree of pulmonary hypertensionlikely beginning to occur in the face of untreated sleep apnea. Discussed all of this with patient in depthsafe/stable for home, given time to recover from the viral respiratory infection, gradually increasing activity (offered formal physical therapy but she did not feel it would be necessary), and getting set up for CPAP again, working on better sleep overall (we discussed common factors that interrupt sleepand it does sound like nighttime mind racing/anxiety is playing a role (discussed writing down her thoughts prior to bed) and also it sounds like [id number] caffeine may be playing a role (discussed that caffeine can last for up to 12 hours and some peoplethat she should cut caffeine consumption after about noon). Total Time Total Time Spent Total Time Spent (In Minutes): ~1hr Discharge Plan Discharge Items Patient Disposition: Home - Self-Care Reason For Visit: DYSPNEA ON EXERTION Discharge Diagnosis: Multifactorial dyspnea (shortness of breath) Activity: Resume your previous activity Non-emergency contact: Primary Care Provider Call non-emergency contact if: you have any medication questions and your symptoms worsen Follow-up/Referrals: Lucila Rojas MD [Primary Care Provider] - Diet: Carb Consistent or DM2 Addtl Attending Provider Instructions: Shortness of breath on exertion -Fortunately we are not seeing anything of a worrisome cause. Obviously our biggest concern was whether or not this was cardiacand fortunately your echocardiogram, and more importantly the stress echo, did not show anything even remotely hinting towards unstable coronary artery disease. (Of course most people as they get into their 70s will have some degree of coronary disease just by "wear and tear"but what a stress test really looks well for is any sort of a tight blockage that would be causing lack of blood flow that would explain her shortness of breath with exertion). Your oxygen numbers were not low when you are awake (they were during sleepbut see below under sleep apnea), and your chest CT did not show any fluid, infection, inflammation, thickening, etc.making most lung disease problems highly unlikely. Of note, as we discussed, it would be reasonable for Dr. Rojas to get you set up for what are called pulmonary function tests and (lung volume test) to round out the picture for any kind of a lung problemalthough as we discussed, I doubt this will be what is causing her shortness of breath. Is also important to note that the CT scan done in the ER did not directly look for evidence of blood clots, but with your oxygen numbers being so good, your heart rate being normal, and t he rest of the picture not looking like what we usually see with blood clots, I really doubt this is the case either. -As we discussed, most likely your shortness of breath is multiple factors: Untreated sleep apnea, overall malaise/deconditioning, poor sleep in general, and likely recovering from what was a mild case of COVID -----> the sleep issues likely cause a lot of the shortness of breath on exertionbecause when we are fatigued from not sleeping well, everything will feel like much more exertion. As we discussed with sleep apnea, CPAP is generally about the only effective form of treatment, and case management will be working with [facility] to get she set up with a new CPAP device. Like we discussed, give it an honest trymost people who cannot tolerate CPAP cannot because they have decided that they will be able to tolerate it before they even try. Further, as we discussed, other sleep issues are likely at playas we talked, the two most obvious that are probably also interrupting sleep are having anxious thoughts as you are approaching/at bed time (this can often be helped by writing down your thoughts before bed so that you know that they will be there for you in the morning), and probably from caffeine [id number] (as we discussed, caffeine can sometimes last an people for as long as 12 hoursso probably afternoon it would make sense to switch to noncaffeinated drinks). Like we discussed, keep a log of sleep, and everything surrounding itlike what time you go to bed, roughly when you fall asleep, how long you sleep, what seems to wake you up, how long you are awake, what seems to interrupt sleepetc.so that you and Dr. Rojas can review things to look for other patterns that may be getting in the way of sleeping well -----> when you had respiratory infection symptoms and loss of smell, that was highly likely to have been COVID. As we discussed, very few respiratory infections, with loss of smelland in the almost 16 years have been doing this, actually have not seen any respiratory infections because lack of smell except for COVID. With that, even though the case was undoubtedly quite mild, it is still something that we see people take quite a while to recover from. There is not really any specific treatment that would be needed, more just giving her body time to heal, and gradually pushing your self to do more. -----> deconditioningan unfortunate reality that we run into, is that when people are a little bit older and then get sick with anything, it starts to make him weaker. That weakness then compounds on itself, because when it is tougher to do things generally we do a little bit less, making us weaker still. Unfortunately the only way "out of this hole" is to gradually build ourselves upas we discussed, this would be where you would look at the "ceiling" of what you are able to do today, and just gradually push that ceiling up by doing more as you can. Given that the above work-up was so reassuring, it should be safe to push yourself, like we discussedthe only major "consequence" would be if you started to breathe heavy enough that you are hyperventilating, and that led to you being lightheaded, and that lead to faintingto that end basically if you start to breathe very fast and heavy, that would be when it is time to take a break and rest I would definitely recommend following up with Dr. Rojas next week to continue to work on all of the above. It was a pleasure getting to know you and I hope you do well! Pending Studies at Discharge: No Stand-Alone Forms: My [facility], Smoking Cessation Medications and DC Order Prescriptions: Continued (DME) lancets [OneTouch Delica Lancets] 30 gauge misc See Rx Instructions .ROUTE .MEDSUPPLY Qty: 100 RF: 5 magnesium oxide 400 mg magnesium tablet 400 mg PO HS RF: 0 Novolin 70/30 U-100 Insulin 100 unit/mL (70-30) suspension 100 unit SUBCUT BID Qty: 60 RF: 11 (DME) blood sugar diagnostic Strip See Rx Instructions .ROUTE .MEDSUPPLY Qty: 200 RF: 5 (DME) insulin syringe-needle U-100 [BD Insulin Syringe Ultra-Fine] 1 mL 31 gauge x 5/16 syringe See Rx Instructions .Route Qty: 200 RF: 3 metformin 1,000 mg tablet 1,000 mg PO BID Qty: 180 RF: 3 pantoprazole 40 mg tablet,delayed release (DR/EC) 40 mg PO BID Qty: 180 RF: 3 albuterol sulfate 90 mcg/actuation HFA aerosol inhaler 2 puff inhalation Q6H PRN (Reason: shortness of breath or wheezing) Qty: 8.5 RF: 3 aspirin [Adult Aspirin Regimen] 81 mg tablet,delayed release (DR/EC) 81 mg PO HS RF: 0 losartan 50 mg tablet 50 mg PO QAM RF: 0 prednisone 10 mg tablet 5 mg PO QAM RF: 0 allopurinol 100 mg tablet 100 mg PO QAM RF: 0 levothyroxine 25 mcg tablet 25 mcg PO DAILYBB RF: 0 amlodipine [Norvasc] 10 mg tablet 10 mg PO HS RF: 0 spironolactone 50 mg tablet 50 mg PO QAM RF: 0 cholecalciferol (vitamin D3) 25 mcg (1,000 unit) capsule 25 mcg PO HS RF: 0 cyclobenzaprine 5 mg tablet 5 - 10 mg PO Q8H PRN (Reason: muscle spasm) RF: 0 celecoxib [Celebrex] 200 mg capsule 200 mg PO DAILY RF: 0 carvedilol 12.5 mg tablet 12.5 mg PO BID RF: 0 Discharge Orders: Discharge Order (Routine); Ordered 11/14/21 Ordered By: Dino Salas/Other Patient Handouts: Managing Type 2 Diabetes, Special Foot Care for Diabetes Admission Data Admit Date/Time: 11/13/21 20:21 Attending Provider: Dino Prabhakar Admit Provider: Erasmo Bazan Primary Care Provider: Lucila Rojas Other Providers: Erasmo Bazan Other Interventions: Discharge Summary Assessment (RN) Last Done: 11/14/21 17:26 Coding Level of Care Code 77065 OBS Care - Discharge Diagnoses Dyspnea on exertion R06.00
--- NOTE | 2021-11-14 22:52 | Electrocardiogram Report ---
Test Reason : Blood Pressure : / mmHG Vent. Rate : 069 BPM Atrial Rate : 069 BPM P-R Int : 160 ms QRS Dur : 088 ms QT Int : 390 ms P-R-T Axes : 060 -24 033 degrees QTc Int : 417 ms Poor data quality, interpretation may be adversely affected Normal sinus rhythm Possible Left atrial enlargement Left ventricular hypertrophy Abnormal ECG When compared with ECG of 12-OCT-2021 13:10, No significant change was found Confirmed by Bob Addison ([id number]) on 11/14/2021 10:52:04 PM Referred By: REFERRED SELF Confirmed By:Bob Addison
--- NOTE | 2021-11-15 01:59 | Billing Data ---
Date of Service November 15, 2021 Coding Level of Care Code INT OBSERVATION CARE 70M LVL 3
== END 2021-11-14 18:40 | disposition home or self-care (01) ==
LOC: ED 17:03 → 2N 17:03 → SUATTDRO 20:21 → 2N 21:28

== ENCOUNTER 2022-01-14 16:02 | Observation (INO) ==
[~2022-01-14 16:02] MED LIST changes: -ASPI-435 PO; -ATEN-173 PO; -EMPA1TAB PO; -FURO-85 PO; -INSU70IN2 SC; +INSULIN ASPART PER UNIT SC ONE; -LOSA100T65 PO; -METF-384 PO; -PANT40TA PO; -POTA540T PO; -TNR50 PO
--- NOTE | 2022-01-14 16:39 | Emergency Department Note ---
Impression & Plan Acute hyperkalemia, Bradycardia, Leukocytosis ED Provider Note NAME: DARON NGUYEN AGE: 76 SEX: F : 1945 ARRIVES VIA: Walk-In INFORMANT: Patient ED PROVIDER(S): Dino Colbert DO CHIEF COMPLAINT: shortness of breath HPI: Patient is a 76-year-old female with a past medical history of GI bleed, PMR, hypertension, GERD, diabetes, CHF and fibromyalgia who presents to the ER for shortness of breath. She notes the symptoms have been present for the past 3 days. She also admits to urinary frequency but denies any burning or discomfort for the past 3 days. She is felt very weak and rundown. She notes her heart rate has been low in the 40s to 50s. She has had no changes in those medications. Recently placed on fluconazole for throat infection. Denies any headache or change in vision. No chest pain. No belly pain nausea vomiting or diarrhea. No other exacerbating or remitting factors. ROS: See above HPI for pertinent positives & negatives. A total of 10 systems reviewed and were otherwise negative. PAST MEDICAL HISTORY:See Below PAST SURGICAL HISTORY:See Below FAMILY HISTORY:See Below SOCIAL HISTORY:See Below HOME MEDICATIONS:See Below ALLERGIES:See Below VITALS:See Below PHYSICAL EXAMINATION: GENERAL: Sitting up in bed, alert, well appearing, well nourished, no distress, non-toxic, obese EYE EXAM: normal conjunctiva. OROPHARYNX: no exudate, no erythema, lips, buccal mucosa, and tongue normal and mucous membranes are moist NECK: supple, no nuchal rigidity, no adenopathy, non-tender LUNGS: Clear to auscultation. Normal chest wall mechanics HEART: no murmurs, S1 normal and S2 normal ABDOMEN: abdomen soft, non-tender, normo-active bowel sounds, no masses, no rebound or guarding. UPPER EXTREMITIES: upper extremities are grossly normal. LOWER EXTREMITIES: No pitting edema. Calf cervical bilateral NEURO EXAM: Normal sensorium, cranial nerves II-XII intact, normal speech, no weakness of arms, no weakness of legs. No drift. Finger to nose intact. Gross sensation intact. MEDICAL DECISION MAKING: Patient is a 76-year-old female who presents ER for above-stated complaint. IV was established blood work was obtained. Labs show mild leukocytosis 16,000. Anemia 11.5. BMP with a potassium of 7.6. CO2 of 20. BUN was elevated at 43. Troponin was negative. LFTs and lipase is unremarkable. COVID was negative. Once it was discovered that the potassium was significantly elevated I ordered an i-STAT to confirm this and came back at 8. She was ordered IV dextrose, insulin, calcium gluconate x2 g, bicarb x2 g as well as IV fluids. Immediately following receiving treatment her heart rate began to increase up to the 70s to 80s. She was discussed with the hospitalist. She was monitored closely while in the ER. She did have a code cart at bedside with pads applied. Patient was updated bedside. Triage Nursing notes reviewed. Limited review of prior medical records performed Vital Signs: reviewed and remarkable for HTN and bradycradia Differential diagnosis: Differential diagnoses includes but is not limited to pneumonia, bronchitis, COPD/Asthma exacerbation, pneumothorax, pulmonary embolism, congestive heart failure, acute coronary syndrome ER treatment provided: See below Diagnostics interpreted by me: ECG: Sinus bradycardia rate of 50 Left axis No PVCs QTC 364 Cardiac Monitoring: An order was placed for continuous cardiac monitoring. The monitor shows a rate of 52 with sinus rhythm. Laboratory studies: As stated above and show below. Imaging studies: Portable AP upright 1 view chest was unremarkable Consultation(s): Discussed with Neo Cortes for further evaluation Procedures: none Critical Care: I have personally spent 35 minutes of critical care time in the direct cristopher gement of this patient. This includes bedside care, interpretation of diagnostic studies, and testing, discussion with consultants, patient, and family members, and other required patient management activities. This 35 minutes is in excess of all separately billable procedures. Past Med/Surg History Medical History Bilateral tinnitus Chronic diastolic CHF (congestive heart failure) Diverticulosis Fibromyalgia GERD (gastroesophageal reflux disease) GIB (gastrointestinal bleeding) ulcerated hemangioma resected 2018 History of breast cancer RT (SURGERY WITH RADIATION) History of kidney stones HTN (hypertension) Hypomagnesemia Iron deficiency anemia Osteoarthritis Overactive bladder PMR (polymyalgia rheumatica) Pulmonary nodules Sleep apnea NO DEVICE "MILD" SNHL (sensorineural hearing loss) Spinal stenosis Subclinical hypothyroidism Transient ischemic attack (TIA) x 3 (2014, 2015, 2019) NO CURRENT PROBLEMS FROM EVENT Type 2 diabetes mellitus Surgical History H/O lithotripsy H/O lumpectomy RT X 2 History of arthroscopy RT KNEE History of bilateral tubal ligation History of breast biopsy History of cardiac cath 8 YEARS AGO -NO STENTS AT [facility] WITH DR. REGALADO History of colonoscopy History of esophagogastroduodenoscopy (EGD) History of tooth extraction S/P appendectomy Family History Grandmother Family history of diabetes mellitus Father Family history of diabetes mellitus Lung cancer Lung disease Mother MDP (myeloproliferative disorder) Family history of diabetes mellitus Glaucoma Hypertension Gall bladder disease Unknown Diabetes Leukemia Myocardial infarction Other No family history of adverse response to anesthesia Social History Smoking Status: Never smoker Second Hand Exposure: Yes ( A CHILD); Hx Alcohol Use: No Hx Substance Use: No Preferred Language: Romanian Communication Ability: Effective Outsole Scheduler Required: No Beliefs That Will Affect Care: None marital status: marital status details: No children Current Living Situation: Spouse current occupational status: retired 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 [employer] Feels Safe at Home: Yes Assistive Devices: Walker Allergies Allergies Allergy/AdvReac Type Severity Reaction Status Date / Time Iodinated Contrast Media Allergy Severe ANAPHYLAXIS Verified 01/07/22 13:01 /CONVULSION S sumatriptan Allergy Severe SOB,INCREASED Verified 01/07/22 13:01 HEARTRATE Bactrim Allergy Intermediate hives Verified 03/15/18 10:08 ciprofloxacin Allergy Intermediate hives Verified 01/07/22 13:01 metronidazole Allergy Intermediate HIVES Verified 01/07/22 13:01 sulfamethoxazole Allergy Intermediate hives Verified 01/07/22 13:01 trimethoprim Allergy Intermediate hives Verified 01/07/22 13:01 adhesive AdvReac Severe SEVERE Verified 01/07/22 13:01 BURNING BLISTERS tramadol AdvReac Mild FATIGUE Verified 01/07/22 13:01 Home Meds Home Medications Medication Instructions Recorded Confirmed aspirin 81 mg tablet,delayed 81 mg PO HS 02/27/20 01/07/22 release (Adult Aspirin Regimen) magnesium oxide 400 mg PO HS 05/28/21 01/07/22 allopurinol 100 mg tablet 100 mg PO QAM 10/12/21 01/07/22 amlodipine 10 mg tablet (Norvasc) 10 mg PO HS 10/12/21 01/07/22 cholecalciferol (vitamin D3) 25 25 mcg PO HS 10/12/21 01/07/22 mcg (1,000 unit) capsule losartan 50 mg tablet 50 mg PO QAM 10/12/21 01/07/22 spironolactone 50 mg tablet 50 mg PO QAM 10/12/21 01/07/22 carvedilol 12.5 mg tablet 12.5 mg PO BID 11/13/21 01/07/22 celecoxib 200 mg capsule (Celebrex) 200 mg PO DAILY 11/13/21 01/07/22 cyclobenzaprine 5 mg tablet 5 - 10 mg PO Q8H PRN 11/13/21 01/07/22 prednisone 5 mg tablet 2.5 mg PO DAILY tab 01/07/22 01/07/22 Previous Rx's Medication Instructions Recorded lancets 30 gauge (OneTouch Delica #100 ea 08/25/19 Lancets) blood sugar diagnostic #200 ea 07/23/21 insulin human U-100 NPH-regulr 100 unit SUBCUT BID #60 ml 07/23/21 70-30 mix 100 unit/mL subcutaneous susp (Novolin 70/30 U-100 Insulin) insulin syringe-needle U-100 1 mL #200 ea 07/30/21 31 gauge x 5/16" (BD Insulin Syringe Ultra-Fine) metformin 1,000 mg tablet 1,000 mg PO BID #180 tab 07/31/21 pantoprazole 40 mg tablet,delayed 40 mg PO BID #180 tab 08/26/21 release albuterol sulfate 90 mcg/actuation 2 puff INHALATION Q6H PRN #8.5 g 11/08/21 aerosol inhaler levothyroxine 25 mcg tablet 25 mcg PO DAILY #90 tab 12/05/21 fluconazole 200 mg tablet See Rx Instructions .ROUTE 01/07/22 .COMPLEX #15 tab Results & Data (ED) Vital Signs Vital Signs - 24 hr 01/14/22 16:15 01/14/22 16:37 01/14/22 16:38 Temperature 36.5 C Temperature Source Temporal Artery Scan Pulse Rate 49 L 49 L Pulse Rate [Right Finger] 48 L Pulse Rhythm Regular Pulse Rhythm [Right Finger] Regular Pulse Strength [Right Finger] Normal Respiratory Rate 16 24 24 Respiratory Effort / Characteristics Non-Labored Spontaneous Respiratory Depth Normal Respiratory Pattern Regular Blood Pressure 170/68 H Blood Pressure [Right Arm] 185/75 H Blood Pressure Mean 102 Blood Pressure Mean [Right Arm] 111 Blood Pressure Position [Right Arm] Lying Pulse Oximetry 92 94 94 Oxygen Delivery Method Room Air Room Air Room Air Sepsis Recent Fever Within 48 Hours No Sepsis New/Unexplained Change in Mental Status No Sepsis Action Taken by Nursing No Action Required 01/14/22 18:40 Temperature Temperature Source Pulse Rate Pulse Rate [Right Finger] 71 Pulse Rhythm Pulse Rhythm [Right Finger] Pulse Strength [Right Finger] Normal Respiratory Rate 12 Respiratory Effort / Characteristics Non-Labored Spontaneous Respiratory Depth Normal Respiratory Pattern Regular Blood Pressure Blood Pressure [Right Arm] 205/69 H Blood Pressure Mean Blood Pressure Mean [Right Arm] 114 Blood Pressure Position [Right Arm] Lying Pulse Oximetry 96 Oxygen Delivery Method Room Air Sepsis Recent Fever Within 48 Hours Sepsis New/Unexplained Change in Mental Status Sepsis Action Taken by Nursing Laboratory Data Result diagrams: 01/14/22 16:48 01/14/22 16:48 Lab Results 01/14/22 01/14/22 01/14/22 Range/Units 16:48 16:48 16:48 WBC 16.10 H (4.8-10.8) K/uL RBC 4.41 (4.2-5.4) M/uL Hgb 11.5 L (12.0-16.0) g/dL POC Hgb (12.0-16.0) g/dl Hct 36.4 L (37-47) % POC Hct (37-47) % MCV 82.5 (80-100) fL MCH 26.1 (25-34) pg MCHC 31.6 L (32-36) g/dL RDW Std Deviation 53.1 H (36.4-46.3) fL RDW Coeff of Guevara 17.4 H (11.5-14.5) % Plt Count 363 (130-400) K/uL MPV 10.4 (7.4-10.4) fL Immature Gran % (Auto) 1.2 % Neut % (Auto) 84.9 % Lymph % (Auto) 9.3 % Meade % (Auto) 4.0 % Eos % (Auto) 0.5 % Baso % (Auto) 0.1 % Neut # (Auto) 13.68 H (1.4-6.5) K/uL Lymph # (Auto) 1.49 (1.2-3.4) K/uL Meade # (Auto) 0.64 H (0.11-0.59) K/uL Eos # (Auto) 0.08 (0-0.5) K/uL Baso # (Auto) 0.02 (0-0.2) K/uL Immature Gran # (Auto) 0.19 H (0.00-0.02) K/uL D-Dimer Cancelled POC Sodium (135-144) mmol/L Sodium 133 L (136-145) mmol/L POC Potassium (3.3-5.0) mmol/L Potassium 7.6 H* (3.5-5.1) mmol/L POC Chloride (101-112) mmol/L Chloride 105 (98-107) mmol/L Carbon Dioxide 20 L (21-32) mmol/L POC Total CO2 (24-31) mmol/L Anion Gap 8 (3-11) POC Anion Gap (16-25) mmol/L POC BUN (7-18) mg/dl BUN 43 H (6-23) mg/dl Creatinine 1.54 H (0.6-1.2) mg/dl POC Creatinine (0.6-1.3) mg/dl Est Cr Clr Drug Dosing 39.7 ml/min Est GFR ( Amer) 37.6 ml/min Est GFR (Non-Af Amer) 32.4 ml/min BUN/Creatinine Ratio 27.9 H (10-20) Glucose 243 H (70-99(Fasting)) mg/dl POC Glucose (other) (70-99) mg/dl Uric Acid (2.6-7.2) mg/dl Calcium 9.5 (8.5-10.1) mg/dl POC Ioniz Calcium Kp (1.12-1.32) mmol/l Total Bilirubin 0.3 (0.2-1.0) mg/dl AST 14 (13-39) U/L ALT 24 (7-52) U/L Alkaline Phosphatase 44 (34-104) U/L Total Creatine Kinase (26-192) U/L Troponin I High Sens 3.1 (0-14) pg/ml Total Protein 7.2 (6.0-8.3) gm/dl Albumin 3.9 (3.4-5.0) gm/dl Globulin 3.3 (2.5-4.0) gm/dl Albumin/Globulin Ratio 1.2 (0.9-2) Lipase 27 (11-82) U/L SARS-CoV-2, RNA, NAAT (NEGATIVE) 01/14/22 01/14/22 01/14/22 Range/Units 16:48 17:56 18:14 WBC (4.8-10.8) K/uL RBC (4.2-5.4) M/uL Hgb (12.0-16.0) g/dL POC Hgb 11.9 L (12.0-16.0) g/dl Hct (37-47) % POC Hct 35 L (37-47) % MCV (80-100) fL MCH (25-34) pg MCHC (32-36) g/dL RDW Std Deviation (36.4-46.3) fL RDW Coeff of Guevara (11.5-14.5) % Plt Count (130-400) K/uL MPV (7.4-10.4) fL Immature Gran % (Auto) % Neut % (Auto) % Lymph % (Auto) % Meade % (Auto) % Eos % (Auto) % Baso % (Auto) % Neut # (Auto) (1.4-6.5) K/uL Lymph # (Auto) (1.2-3.4) K/uL Meade # (Auto) (0.11-0.59) K/uL Eos # (Auto) (0-0.5) K/uL Baso # (Auto) (0-0.2) K/uL Immature Gran # (Auto) (0.00-0.02) K/uL D-Dimer 230 POC Sodium 134 L (135-144) mmol/L Sodium (136-145) mmol/L POC Potassium 8.1 H* (3.3-5.0) mmol/L Potassium (3.5-5.1) mmol/L POC Chloride 108 (101-112) mmol/L Chloride (98-107) mmol/L Carbon Dioxide (21-32) mmol/L POC Total CO2 21 L (24-31) mmol/L Anion Gap (3-11) POC Anion Gap 14.0 L (16-25) mmol/L POC BUN 52 H (7-18) mg/dl BUN (6-23) mg/dl Creatinine (0.6-1.2) mg/dl POC Creatinine 1.5 H (0.6-1.3) mg/dl Est Cr Clr Drug Dosing ml/min Est GFR ( Amer) ml/min Est GFR (Non-Af Amer) ml/min BUN/Creatinine Ratio (10-20) Glucose (70-99(Fasting)) mg/dl POC Glucose (other) 227 H (70-99) mg/dl Uric Acid 6.4 (2.6-7.2) mg/dl Calcium (8.5-10.1) mg/dl POC Ioniz Calcium Kp 1.20 (1.12-1.32) mmol/l Total Bilirubin (0.2-1.0) mg/dl AST (13-39) U/L ALT (7-52) U/L Alkaline Phosphatase (34-104) U/L Total Creatine Kinase 29 (26-192) U/L Troponin I High Sens (0-14) pg/ml Total Protein (6.0-8.3) gm/dl Albumin (3.4-5.0) gm/dl Globulin (2.5-4.0) gm/dl Albumin/Globulin Ratio (0.9-2) Lipase (11-82) U/L SARS-CoV-2, RNA, NAAT (NEGATIVE) 01/14/22 Range/Units 18:32 WBC (4.8-10.8) K/uL RBC (4.2-5.4) M/uL Hgb (12.0-16.0) g/dL POC Hgb (12.0-16.0) g/dl Hct (37-47) % POC Hct (37-47) % MCV (80-100) fL MCH (25-34) pg MCHC (32-36) g/dL RDW Std Deviation (36.4-46.3) fL RDW Coeff of Guevara (11.5-14.5) % Plt Count (130-400) K/uL MPV (7.4-10.4) fL Immature Gran % (Auto) % Neut % (Auto) % Lymph % (Auto) % Meade % (Auto) % Eos % (Auto) % Baso % (Auto) % Neut # (Auto) (1.4-6.5) K/uL Lymph # (Auto) (1.2-3.4) K/uL Meade # (Auto) (0.11-0.59) K/uL Eos # (Auto) (0-0.5) K/uL Baso # (Auto) (0-0.2) K/uL Immature Gran # (Auto) (0.00-0.02) K/uL D-Dimer POC Sodium (135-144) mmol/L Sodium (136-145) mmol/L POC Potassium (3.3-5.0) mmol/L Potassium (3.5-5.1) mmol/L POC Chloride (101-112) mmol/L Chloride (98-107) mmol/L Carbon Dioxide (21-32) mmol/L POC Total CO2 (24-31) mmol/L Anion Gap (3-11) POC Anion Gap (16-25) mmol/L POC BUN (7-18) mg/dl BUN (6-23) mg/dl Creatinine (0.6-1.2) mg/dl POC Creatinine (0.6-1.3) mg/dl Est Cr Clr Drug Dosing ml/min Est GFR ( Amer) ml/min Est GFR (Non-Af Amer) ml/min BUN/Creatinine Ratio (10-20) Glucose (70-99(Fasting)) mg/dl POC Glucose (other) (70-99) mg/dl Uric Acid (2.6-7.2) mg/dl Calcium (8.5-10.1) mg/dl POC Ioniz Calcium Kp (1.12-1.32) mmol/l Total Bilirubin (0.2-1.0) mg/dl AST (13-39) U/L ALT (7-52) U/L Alkaline Phosphatase (34-104) U/L Total Creatine Kinase (26-192) U/L Troponin I High Sens (0-14) pg/ml Total Protein (6.0-8.3) gm/dl Albumin (3.4-5.0) gm/dl Globulin (2.5-4.0) gm/dl Albumin/Globulin Ratio (0.9-2) Lipase (11-82) U/L SARS-CoV-2, RNA, NAAT NEGATIVE (NEGATIVE) Administered Medications Discontinued Medications Dextrose (Dextrose 50% 50 Ml Syringe) 50 ml IV NOW STA Stop: 01/14/22 18:01 Last Admin: 01/14/22 18:17 Dose: 50 ml Documented by: [id number] Calcium Gluconate () 1,000 mg in 60 mls @ 240 mls/hr IV Q15M AMBERLY Stop: 01/14/22 18:29 Last Admin: 01/14/22 18:39 Dose: 240 mls/hr Documented by: [id number] Infusion: 01/14/22 18:39 Dose: 0 mls/hr Documented by: [id number] Admin: 01/14/22 18:17 Dose: 240 mls/hr Documented by: [id number] Sodium Chloride (Nss 1000ml) 1,000 mls @ 999 mls/hr IV .Q1H1M ONE Stop: 01/14/22 19:01 Last Admin: 01/14/22 18:17 Dose: 999 mls/hr Documented by: [id number] Insulin Human Regular (Novolin-R Insulin Per Unit Charge) 10 units IV NOW STA Stop: 01/14/22 18:01 Last Admin: 01/14/22 18:17 Dose: 10 units Documented by: [id number] Cosigned by: [id number] Sodium Bicarbonate (Sodium Bicarb 8.4% Inj 50 Meq/50 Ml Syr) 100 meq IV NOW STA Stop: 01/14/22 18:01 Last Admin: 01/14/22 18:11 Dose: 100 meq Documented by: [id number] Imaging Data Radiologist's Impression: Chest X-Ray 01/14/22 16:35 SINGLE VIEW CHEST CLINICAL HISTORY: Atypical chest pain FINDINGS: An AP, portable, upright chest radiograph is compared to chest x-ray and chest CT dated 11/13/2021. The heart is enlarged noting atherosclerotic calcification of the thoracic aorta. Enlargement of the pulmonary trunk suggests pulmonary artery hypertension. The pulmonary vasculature is noncongested. There is chronic elevation of the right hemidiaphragm with bibasilar scarring/atelectasis. The lungs and pleural spaces are otherwise clear. No pneumothorax is seen. The skeletal structures are osteopenic. The bony thorax is grossly intact. IMPRESSION: Cardiomegaly with no acute cardiopulmonary abnormality. ACT 112: Negative or not required by law. Electronically signed by: Mateusz Moss M.D. 01/14/2022 5:07 PM Discharge Plan Visit Data Chief Complaint: Bradycardia Stated Complaint: LOW HEART RATE ED Provider: Dino Colbert Discharge Problem: Acute hyperkalemia, Bradycardia, Leukocytosis Forms Stand Alone Forms: [facility] Prescriptions Prescriptions: No Action (DME) lancets [OneTouch Delica Lancets] 30 gauge misc See Rx Instructions .ROUTE .MEDSUPPLY Qty: 100 RF: 5 magnesium oxide 400 mg magnesium tablet 400 mg PO HS RF: 0 Novolin 70/30 U-100 Insulin 100 unit/mL (70-30) suspension 100 unit SUBCUT BID Qty: 60 RF: 11 (DME) blood sugar diagnostic Strip See Rx Instructions .ROUTE .MEDSUPPLY Qty: 200 RF: 5 (DME) insulin syringe-needle U-100 [BD Insulin Syringe Ultra-Fine] 1 mL 31 gauge x 5/16 syringe See Rx Instructions .Route Qty: 200 RF: 3 metformin 1,000 mg tablet 1,000 mg PO BID Qty: 180 RF: 3 pantoprazole 40 mg tablet,delayed release (DR/EC) 40 mg PO BID Qty: 180 RF: 3 albuterol sulfate 90 mcg/actuation HFA aerosol inhaler 2 puff inhalation Q6H PRN (Reason: shortness of breath or wheezing) Qty: 8.5 RF: 3 levothyroxine 25 mcg tablet 25 mcg PO DAILY Qty: 90 RF: 3 prednisone 5 mg tablet 2.5 mg PO DAILY RF: 0 fluconazole 200 mg tablet See Rx Instructions .ROUTE .COMPLEX Qty: 15 RF: 0 aspirin [Adult Aspirin Regimen] 81 mg tablet,delayed release (DR/EC) 81 mg PO HS RF: 0 losartan 50 mg tablet 50 mg PO QAM RF: 0 allopurinol 100 mg tablet 100 mg PO QAM RF: 0 amlodipine [Norvasc] 10 mg tablet 10 mg PO HS RF: 0 spironolactone 50 mg tablet 50 mg PO QAM RF: 0 cholecalciferol (vitamin D3) 25 mcg (1,000 unit) capsule 25 mcg PO HS RF: 0 cyclobenzaprine 5 mg tablet 5 - 10 mg PO Q8H PRN (Reason: muscle spasm) RF: 0 celecoxib [Celebrex] 200 mg capsule 200 mg PO DAILY RF: 0 carvedilol 12.5 mg tablet 12.5 mg PO BID RF: 0 Referrals Referrals: Lucila Rojas MD [Primary Care Provider] - Discharge Problem: Leukocytosis Qualifiers: Leukocytosis type: unspecified Qualified Code(s): D72.829 - Elevated white blood cell count, unspecified
[2022-01-14 17:00] LABS: Basophils # (auto) 0.02 K/uL (0-0.2); Basophils % (auto) 0.1 %; Eosinophils # (auto) 0.08 K/uL (0-0.5); Eosinophils % (auto) 0.5 %; Hematocrit (blood only) 36.4 % (37-47); Hemoglobin 11.5 g/dL (12.0-16.0); Immature Granulocytes # (auto) 0.19 K/uL (0.00-0.02); Immature Granulocytes % (auto) 1.2 %; Lymphocytes # (auto) 1.49 K/uL (1.2-3.4); Lymphocytes % (auto) 9.3 %; Mean Corpuscular Hemoglobin 26.1 pg (25-34); Mean Corpuscular Hgb Conc 31.6 g/dL (32-36); Mean Corpuscular Volume 82.5 fL (80-100); Mean Platelet Volume 10.4 fL (7.4-10.4); Monocytes # (auto) 0.64 K/uL (0.11-0.59); Neutrophils # (auto) 13.68 K/uL (1.4-6.5); Neutrophils % (auto) 84.9 %; Platelet Count 363 K/uL (130-400); RDW Coefficient of Variation 17.4 % (11.5-14.5); RDW Standard Deviation 53.1 fL (36.4-46.3); Red Blood Count 4.41 M/uL (4.2-5.4)
--- NOTE | 2022-01-14 17:09 | XRay Report ---
SINGLE VIEW CHEST CLINICAL HISTORY: Atypical chest pain FINDINGS: An AP, portable, upright chest radiograph is compared to chest x-ray and chest CT dated 10/19. The heart is enlarged noting atherosclerotic calcification of the thoracic aorta. Enlargement of the pulmonary trunk suggests pulmonary artery hypertension. The pulmonary vasculature is nonconge sted. There is chronic elevation of the right hemidiaphragm with bibasilar scarring/atelectasis. The lungs and pleural spaces are otherwise clear. No pneumothorax is seen. The skeletal structures are os teopenic. The bony thorax is grossly intact. IMPRESSION: Cardiomegaly with no acute cardiopulmonary abnormality. ACT 112: Negative or not required by law. Electronically signed by: Mateusz Moss M.D. 01/14/2022 5:07 PM
[2022-01-14 17:33] LABS: Troponin I High Sensitivity 3.1 pg/ml (0-14)
[2022-01-14 17:44] LABS: Albumin Globulin Ratio 1.2 (0.9-2); Albumin Level 3.9 gm/dl (3.4-5.0); BUN Creatinine Ratio 27.9 (10-20); Bilirubin,Total 0.3 mg/dl (0.2-1.0); Calcium 9.5 mg/dl (8.5-10.1); Creatinine Clr Calc Pharmacy 39.7 ml/min; Est GFR (African American) 37.6 ml/min; Est GFR (Non-African American) 32.4 ml/min; Globulin 3.3 gm/dl (2.5-4.0); Potassium 7.6 mmol/L (3.5-5.1); Total Protein 7.2 gm/dl (6.0-8.3)
[2022-01-14] MEDS ORDERED: SODIUM BICARB 8.4% INJ 50 MEQ/50 ML SYR IV STA (18:00)
[2022-01-14] MEDS ORDERED: NovoLIN-R INSULIN PER UNIT CHARGE IV STA (18:00)
[2022-01-14] MEDS ORDERED: DEXTROSE 50% 50 ML SYRINGE IV STA ×2 (18:00→20:07)
[2022-01-14] MEDS ORDERED: SODIUM CHLORIDE 0.9% 1000ML 1,000 ML IV ONE ×2 (18:01→19:12)
[2022-01-14] MEDS: CALCIUM GLUCONATE 1,000 MG/60 ML BAG IV SCH ×2 (18:17→18:39)
[2022-01-14 18:28] LABS: iSTAT Creatinine 1.5 mg/dl (0.6-1.3); iSTAT Hemoglobin 11.9 g/dl (12.0-16.0); iSTAT Ionized Calcium 1.2 mmol/l (1.12-1.32); iSTAT Potassium 8.1 mmol/L (3.3-5.0)
[2022-01-14 18:29] LABS: D Dimer 230 ug/L FEU (0-500)
[2022-01-14] MEDS ORDERED: FUROSEMIDE 40 MG/4 ML VIAL IV STA (18:50)
--- NOTE | 2022-01-14 18:56 | History & Physical Report ---
Date of Service January 14, 2022 Assessment & Plan (1) Acute hyperkalemia: Plan: Severe hyperkalemia with POC potassium 8.1 (lab drawn 7.6) with EKG changes (peaked TW, bradycardia, prolonged MD) and neuromuscular weakness Emergent treatment given in the ER including sodium bicarb 100 meq IV, Insulin 10 units IV, Dextrose 50% 50ml, Calcium gluconate 1000mg IV x2 Unclear definitive etiology although patient is on losartan and spironolactone although no acute changes in these medications. Also hold Celebrex acutely. Case reports of fluconazole causing hyperkalemia seem to be the most likely acute cause given she just started this medication therefore will discontinue this. Uric acid to assess for tumor lysis and CK to assess for rhabdomyolysis Patient taking her insulin - last took this this morning Producing urine and Cr only mildly worse than baseline 1.54 from 0.85 - give Lasix 40mg IV now Grimes catheter to be placed Repeat BMP pending Discussed with Dr Brooks and patient to be admitted to ICU (2) EDIS (acute kidney injury): Plan: Very mild increase from 0.85 to 1.54 Suspect mild dehydration. IV Normosol 1L bolus following NSS given in ER then will start on sodium bicarb IV drip (3) Dysphagia: Plan: 1.5 months of this. Was recently started on fluconazole for concern for esophageal thrush. No thrush on exam today but her sore throat is better. Given suspected cause of her hyperkalemia will d/c fluconazole Possible need for EGD this admission given ongoing dysphagia for any solid food and pills - will defer GI consult on admission due to severe hyperkalemia (4) Leukocytosis: Plan: Suspect stress reaction. No infection symptoms/signs on exam. Will add procalcitonin and blood cultures out of abundance of precaution but no need for empiric antibiotics. (5) HTN (hypertension): Plan: Hold medications that can cause hyperkalemia such as losartan, spironolactone. Now heart rate improved can likely continue carvedilol 12.5mg PO BID Lasix 40mg IV given now in ER Continue amlodipine 10mg PO HS (6) PMR (polymyalgia rheumatica): Plan: Continue prednisone 2.5mg PO daily (7) GERD (gastroesophageal reflux disease): Plan: Continue pantoprazole 40mg PO BID (8) History of GI bleed: Plan: Continue pantoprazole 40mg PO BID (9) Type 2 diabetes mellitus: Plan: Hemoglobin A1C 7.0 in 10/2021 Hold metformin and usual NPH 70/30 100 units BID Consult pharmacy for glycemic control during inaptient stay (10) Chronic diastolic CHF (congestive heart failure): Plan: Appears to be somewhat hypovolemic on exam. Lasix given for hyperkalemia. (11) Iron deficiency anemia: Plan: History of iron def. anemia noted. Hgb 11.5 at baseline. Monitor with CBC in AM. (12) Fibromyalgia: Plan: Noted history of this. (13) Hypomagnesemia: Plan: Mg level 1.7, will avoid supplementation currently due to hyperkalemia. (14) Subclinical hypothyroidism: Plan: TSH 1.09 in October Continue levothyroxine 25 mcg PO daily (15) History of TIA (transient ischemic attack): Plan: Continue aspirin Plan: VTE Prophylaxis - deferred to ICU team Diet - T2DM, low K Disposition - admit to ICU Admission and Anticipated Discharge Date Admission Date: January 14, 2022 History of Present Illness Chief Complaint: Generalized weakness Primary Care Provider: Lucila Rojas MD Carrol Wilde is a 76 year old female who present to the ER with generalized weakness, fatigue and bradycardia for the last 3 days. She reports her heart rate has been in the 40s when she was walking therefore decided to come to the ER. She has a history of PMR and reduced her dose a month ago from 5 down to 2.5mg therefore wonders whether the reduction is causing increased pain and fatigue all over. She separately noted an episode of right upper quadrant abdominal pain lasting for an hour last night, sharp stabbing pain. She does note intermittent gallstone pain associated with fatty, greasy foods but this usually relieves by itself after a few minutes. She currently denies any nausea, vomiting, abdominal pain or diarrhea. She also notes a history of dysphagia for the last 6 weeks with associated sore throat. She was prescribed fluconazole 1 week ago for suspected esophageal thrush as dull-white patches were noted in the back of her throat. Plan was to empirically treat but arrange EGD if she does not have resolution of her symptoms. She has noticed improvement in her sore throat just starting today but is still having significant dysphagia with any solids and pills but not liquids. She is passing good urine. Reports increased urination chronically associated with her carbohydrate intake but no acute dysuria, CVA tenderness, fever, chills, change in frequency, small or color. In the ER she was noted to have a potassium level 7.6 with confirmation POC 8.1. She was given emergent treatment of calcium gluconate 2g, Sodium bicarb 100 meq IV, Insulin 10 units / dextrose 50% 50ml, 1L NSS bolus. Allergies Allergy/AdvReac Type Severity Reaction Status Date / Time Iodinated Contrast Media Allergy Severe ANAPHYLAXIS Verified 01/14/22 19:47 /CONVULSION S sumatriptan Allergy Severe SOB,INCREASED Verified 01/14/22 19:47 HEARTRATE Bactrim Allergy Intermediate hives Verified 03/15/18 10:08 ciprofloxacin Allergy Intermediate hives Verified 01/14/22 19:47 metronidazole Allergy Intermediate HIVES Verified 01/14/22 19:47 sulfamethoxazole Allergy Intermediate hives Verified 01/14/22 19:47 trimethoprim Allergy Intermediate hives Verified 01/14/22 19:47 adhesive AdvReac Severe SEVERE Verified 01/14/22 19:47 BURNING BLISTERS tramadol AdvReac Mild FATIGUE Verified 01/14/22 19:47 Home Medications Medication Instructions Recorded Confirmed Type lancets 30 gauge (OneTouch Delica #100 ea 08/25/19 01/14/22 Rx Lancets) aspirin 81 mg tablet,delayed 81 mg PO HS 02/27/20 01/14/22 History release (Adult Aspirin Regimen) magnesium oxide 400 mg PO HS 05/28/21 01/14/22 History blood sugar diagnostic #200 ea 07/23/21 01/14/22 Rx insulin human U-100 NPH-regulr 100 unit SUBCUT BID #60 ml 07/23/21 01/14/22 Rx 70-30 mix 100 unit/mL subcutaneous susp (Novolin 70/30 U-100 Insulin) insulin syringe-needle U-100 1 mL #200 ea 07/30/21 01/14/22 Rx 31 gauge x 5/16" (BD Insulin Syringe Ultra-Fine) metformin 1,000 mg tablet 1,000 mg PO BID #180 tab 07/31/21 01/14/22 Rx pantoprazole 40 mg tablet,delayed 40 mg PO BID #180 tab 08/26/21 01/14/22 Rx release allopurinol 100 mg tablet 100 mg PO QAM 10/12/21 01/14/22 History amlodipine 10 mg tablet (Norvasc) 10 mg PO HS 10/12/21 01/14/22 History cholecalciferol (vitamin D3) 25 25 mcg PO HS 10/12/21 01/14/22 History mcg (1,000 unit) capsule losartan 50 mg tablet 50 mg PO QAM 10/12/21 01/14/22 History spironolactone 50 mg tablet 50 mg PO QAM 10/12/21 01/14/22 History albuterol sulfate 90 mcg/actuation 2 puff INHALATION Q6H PRN #8.5 g 11/08/21 Rx aerosol inhaler carvedilol 12.5 mg tablet 12.5 mg PO BID 11/13/21 01/14/22 History celecoxib 200 mg capsule (Celebrex) 200 mg PO DAILY 11/13/21 01/14/22 History cyclobenzaprine 5 mg tablet 5 - 10 mg PO Q8H PRN 11/13/21 01/14/22 History levothyroxine 25 mcg tablet 25 mcg PO DAILY #90 tab 12/05/21 01/14/22 Rx fluconazole 200 mg tablet See Rx Instructions .ROUTE 01/07/22 01/14/22 Rx .COMPLEX #15 tab prednisone 5 mg tablet 2.5 mg PO DAILY tab 01/07/22 01/14/22 History Past Med/Surg History Medical History Bilateral tinnitus Chronic diastolic CHF (congestive heart failure) Diverticulosis Fibromyalgia GERD (gastroesophageal reflux disease) GIB (gastrointestinal bleeding) ulcerated hemangioma resected 2018 History of breast cancer RT (SURGERY WITH RADIATION) History of kidney stones HTN (hypertension) Hypomagnesemia Iron deficiency anemia Osteoarthritis Overactive bladder PMR (polymyalgia rheumatica) Pulmonary nodules Sleep apnea NO DEVICE "MILD" SNHL (sensorineural hearing loss) Spinal stenosis Subclinical hypothyroidism Transient ischemic attack (TIA) x 3 (2014, 2015, 2019) NO CURRENT PROBLEMS FROM EVENT Type 2 diabetes mellitus Surgical History H/O lithotripsy H/O lumpectomy RT X 2 History of arthroscopy RT KNEE History of bilateral tubal ligation History of breast biopsy History of cardiac cath 8 YEARS AGO -NO STENTS AT [facility] WITH DR. REGALADO History of colonoscopy History of esophagogastroduodenoscopy (EGD) History of tooth extraction S/P appendectomy Family History Grandmother Family history of diabetes mellitus Father Family history of diabetes mellitus Lung cancer Lung disease Mother MDP (myeloproliferative disorder) Family history of diabetes mellitus Glaucoma Hypertension Gall bladder disease Unknown Diabetes Leukemia Myocardial infarction Other No family history of adverse response to anesthesia Social History Smoking Status: Never smoker Second Hand Exposure: Yes ( A CHILD); Hx Alcohol Use: No Hx Substance Use: No Preferred Language: Chilean Communication Ability: Effective Senior Information Security Engineer Required: No Beliefs That Will Affect Care: None marital status: marital status details: No children Current Living Situation: Spouse current occupational status: retired 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 Feels Safe at Home: Yes Safety Concerns: Feels Safe At This Time Assistive Devices: Walker Review of Systems Review of Systems: All systems reviewed & are unremarkable except as noted in HPI & below Physical Exam Constitutional: WD/WN, vitals as above Eyes: PERRL, conjunctivae normal, anicteric sclerae ENMT: external ear and nose normal, oropharynx normal Neck: trachea midline, no thyromegaly Respiratory: normal respiratory effort, lungs clear to auscultation Cardiovascular: Rate/Rhythm: + bradycardic Heart Sounds: no murmur Extremities: normal capillary refill and + pedal edema (trace pre tibial); no calf tenderness Gastrointestinal (Abdomen): normal bowel sounds, soft, nontender, no hepatosplenomegaly Musculoskeletal: no cyanosis or clubbing, extremities motor strength 5/5 Skin: no rashes, warm and dry Neurologic: moves all extremities and awake; not confused Psychiatric: A+Ox3, euthymic affect Results & Data Results & Data ([facility]) Vital Signs (Past 12 Hours) Vital Signs Temp Pulse Pulse Resp BP BP Pulse Ox 01/14/22 18:40 71 12 205/69 H 96 01/14/22 16:38 48 L 24 185/75 H 94 01/14/22 16:37 49 L 24 94 06/28/22 16:15 36.5 C 49 L 16 170/68 H 92 Laboratory Results Abnormal lab results 01/14/22 01/14/22 01/14/22 Range/Units 16:48 16:48 18:14 WBC 16.10 H (4.8-10.8) K/uL Hgb 11.5 L (12.0-16.0) g/dL POC Hgb 11.9 L (12.0-16.0) g/dl Hct 36.4 L (37-47) % POC Hct 35 L (37-47) % MCHC 31.6 L (32-36) g/dL RDW Std Deviation 53.1 H (36.4-46.3) fL RDW Coeff of Guevara 17.4 H (11.5-14.5) % Neut # (Auto) 13.68 H (1.4-6.5) K/uL [place] # (Auto) 0.64 H (0.11-0.59) K/uL Immature Gran # (Auto) 0.19 H (0.00-0.02) K/uL POC Sodium 134 L (135-144) mmol/L Sodium 133 L (136-145) mmol/L POC Potassium 8.1 H* (3.3-5.0) mmol/L Potassium 7.6 H* (3.5-5.1) mmol/L Carbon Dioxide 20 L (21-32) mmol/L POC Total CO2 21 L (24-31) mmol/L POC Anion Gap 14.0 L (16-25) mmol/L POC BUN 52 H (7-18) mg/dl BUN 43 H (6-23) mg/dl Creatinine 1.54 H (0.6-1.2) mg/dl POC Creatinine 1.5 H (0.6-1.3) mg/dl BUN/Creatinine Ratio 27.9 H (10-20) Glucose 243 H (70-99(Fasting)) mg/dl POC Glucose (other) 227 H (70-99) mg/dl Diagnostic Findings SINGLE VIEW CHEST CLINICAL HISTORY: Atypical chest pain FINDINGS: An AP, portable, upright chest radiograph is compared to chest x-ray and chest CT dated 11/13/2021. The heart is enlarged noting atherosclerotic calcification of the thoracic aorta. Enlargement of the pulmonary trunk suggests pulmonary artery hypertension. The pulmonary vasculature is noncongested. There is chronic elevation of the right hemidiaphragm with bibasilar scarring/atelectasis. The lungs and pleural spaces are otherwise clear. No pneumothorax is seen. The skeletal structures are osteopenic. The bony thorax is grossly intact. IMPRESSION: Cardiomegaly with no acute cardiopulmonary abnormality. Medications Administered ER Medications Given: Insulin 10 units / Dextrose 50% 50ml Calcium gluconate 1000mg IV Sodium bicarbonate 100 meq IV NSS 1L bolus ECG Indication: toxicologic (hyperkalemia) Rate (beats per minute): 50 Rhythm: sinus bradycardia Findings: + other (peaked T waves); no acute ischemic change Comparison ECG Date: from (November 13, 2021) Change: no significant change Code Status & VTE Plan Code Status Full VTE Prophylaxis Plan VTE Prophylaxis will be ordered: No PG Care Time/CCT Total # of Minutes Spent Total Time Spent with Patient: Total time spent is greater than 50% in coordination of care (as documented) at patient's floor/unit and/or counseling patient: Coding Level of Care Code 59413 Initial Inpt Care Lvl 3 Diagnoses Acute hyperkalemia E87.5 HTN (hypertension) I10 Leukocytosis D72.829 Leukocytosis type: unspecified PMR (polymyalgia rheumatica) M35.3 GERD (gastroesophageal reflux disease) K21.9 History of GI bleed Z87.19 Type 2 diabetes mellitus E11.65; Z79.4 Diabetes mellitus complication status: with hyperglycemia Diabetes mellitus half-way insulin use: with termite control service representative use Chronic diastolic CHF (congestive heart failure) I50.32 Iron deficiency anemia D50.9 Fibromyalgia M79.7 Hypomagnesemia E83.42 Subclinical hypothyroidism E03.8 Dysphagia R13.10 EDIS (acute kidney injury) N17.9 History of TIA (transient ischemic attack) Z86.73 (1) Type 2 diabetes mellitus Diabetes mellitus complication status: with hyperglycemia Diabetes mellitus half-way insulin use: with half-way use Qualified Code(s): E11.65 - Type 2 diabetes mellitus with hyperglycemia; Z79.4 - USP (current) use of insulin (2) Leukocytosis Leukocytosis type: unspecified Qualified Code(s): D72.829 - Elevated white blood cell count, unspecified
[2022-01-14 19:00] LABS: Uric Acid 6.4 mg/dl (2.6-7.2)
[2022-01-14] MEDS ORDERED: ALBUTEROL HFA 8 GM INHALER INH PRN (19:57)
[2022-01-14 20:01] LABS: BUN Creatinine Ratio 29.9 (10-20); Calcium 9.3 mg/dl (8.5-10.1); Creatinine Clr Calc Pharmacy 39.7 ml/min; Est GFR (African American) 37.6 ml/min; Est GFR (Non-African American) 32.4 ml/min; Potassium 7.5 mmol/L (3.5-5.1)
[2022-01-14] MEDS ORDERED: STAT IV STA (20:07)
[2022-01-14] MEDS ORDERED: INSULIN HUMAN REGULAR PER UNIT 10 UNITS in SYRINGE 9.9 ML IV STA (20:07)
[2022-01-14] MEDS ORDERED: CALCIUM GLUCONATE 10% 1,000 MG in DEXTROSE 5% 50 ML IV STA (20:07)
[2022-01-14] MEDS ORDERED: NORMOSOL-R 1,000 ML IV ONE (20:11)
[2022-01-14] MEDS ORDERED: SODIUM BICARBONATE 8.4% 150 MEQ in DEXTROSE 5% 1,000 ML IV SCH (20:15)
[2022-01-14 21:14] LABS: BUN Creatinine Ratio 31.9 (10-20); Calcium 10.3 mg/dl (8.5-10.1); Creatinine Clr Calc Pharmacy 45.3 ml/min; Est GFR (African American) 44.1 ml/min; Potassium 6.1 mmol/L (3.5-5.1)
[2022-01-14] MEDS ORDERED: ICU PROTOCOL FOR HYPERGLYCEMIA PRN ×2 (21:37→22:05)
[2022-01-14] MEDS ORDERED: PHARMACY GLYCEMIC MGMT CONSULT PRN (21:37)
--- NOTE | 2022-01-14 21:48 | Critical Care Consultation ---
Date of Consultation January 14, 2022 Assessment & Plan (1) Admitted to intensive care unit: Reason Critically Ill: 76-year-old female with acute hyperkalemia requiring close hemodynamic monitoring and monitoring for dysrhythmias in the setting of electrolyte derangement. NEURO - * CAM ICU: NEGATIVE CARDIAC/VASCULAR - * Bradycardia: * Likely secondary to profound hyperkalemia. * Bradycardia corrected with correction of underlying hyper-K. * Continue to monitor on telemetry. * Monitor on telemetry. RESPIRATORY - * No h/o pulmonary disease. * Saturating well on room air. GI/NUTRITION - * DM/Low K diet * Prophylaxis: Protonix RENAL/LYTES - * Hyperkalemia: * Agree that it is interesting that the patient has isolated elevation of potassium with minimal renal injury. Small degree of metabolic acidosis as well. As pointed out by hospitalist colleagues, only change in medication was the addition of fluconazole. * Regardless, patient thankfully w/o life threatening dysrhythmia. Heart rate improved w/ correction of Hyperkalemia. * Continue Bicarb gtt for now. Repeat labs at 2300. * Received aggressive treatment for her hyperkalemia prior to arrival in the ICU. * Monitor for changes in rhythm or ectopy. * Continue w/ IVF for noted EDIS as well. - * Grimes in place - Strict I&Os. ENDO - * DMII and hypothyroidism * BSGs per unit protocol. ISS --> gtt per unit policy. HEME - * Stable H&H ID - * Currently treated for thrush which has seemed to improve per patient. * Without fevers or other symptoms of underlying infection otherwise. * Negative PCT * Trend fever curve. Hold on antibiotics without distinguishable source of infection. LINES/IV ACCESS - * PIVs x2 * Grimes DVT PROPHYLAXIS - * SCDs I have personally spent 32 minutes of critical care time in the direct management of this patient. This is a life/limb threatening event. This includes time spent evaluating patient, direct bedside care, chart review, placing orders, interpretation of diagnostic studies, discussion with consultants, patient, and family members, as well as other required patient management activities. This time is exclusive of all separately billable procedures, and teaching time and separate from and in addition to any other critical care service time. Thank you for allowing us to participate in the care of this patient. Please refer to my attending physician's documentation for any further recommendations. (2) Acute hyperkalemia: (3) Bradycardia: (4) HTN (hypertension): (5) Leukocytosis: History of Present Illness Attending Physician: Neo Cortes MD History of Present Illness Patient is a 76-year-old female with a significant past medical history of hypothyroidism, fibromyalgia, CHF, diabetes, history of breast cancer, GERD, TIA, PMR, and hypertension. Patient presented to the emergency department today with a few day history of shortness of breath with exertion as well as generalized fatigue. Patient was noted to be bradycardic in the emergency department. During evaluation, patient was found to be hyperkalemic with a potassium in excess of 7. She was aggressively treated in the emergency department which did show improvement of her potassium levels. Thankfully, after initial treatments, the patient's heart rate improved appropriately. She has been hemodynamically stable throughout. She did receive a dose of Lasix and has been making significant amounts of urine. Upon evaluation in the ICU, the patient is awake, alert, and oriented. She reports feeling "100 times better" than when she arrived in the emergency department. She does admit to feeling anxious secondary to having to be hospitalized, but otherwise offers no complaints this time. Specifically, the patient denies complaints of headaches, dizziness, lightheadedness, chest pain, palpitations, shortness of breath, pleuritic pain, nausea, vomiting, or abdominal discomfort. Allergies Allergy/AdvReac Type Severity Reaction Status Date / Time Iodinated Contrast Media Allergy Severe ANAPHYLAXIS Verified 01/14/22 19:47 /CONVULSION S sumatriptan Allergy Severe SOB,INCREASED Verified 01/14/22 19:47 HEARTRATE Bactrim Allergy Intermediate hives Verified 03/15/18 10:08 ciprofloxacin Allergy Intermediate hives Verified 01/14/22 19:47 metronidazole Allergy Intermediate HIVES Verified 01/14/22 19:47 sulfamethoxazole Allergy Intermediate hives Verified 01/14/22 19:47 trimethoprim Allergy Intermediate hives Verified 01/14/22 19:47 adhesive AdvReac Severe SEVERE Verified 01/14/22 19:47 BURNING BLISTERS tramadol AdvReac Mild FATIGUE Verified 01/14/22 19:47 Home Medications Medication Instructions Recorded Confirmed Type lancets 30 gauge (Chubbies Shortsuch Delica #100 ea 08/25/19 01/14/22 Rx Lancets) aspirin 81 mg tablet,delayed 81 mg PO HS 02/27/20 01/14/22 History release (Adult Aspirin Regimen) magnesium oxide 400 mg PO HS 05/28/21 01/14/22 History blood sugar diagnostic #200 ea 07/23/21 01/14/22 Rx insulin human U-100 NPH-regulr 100 unit SUBCUT BID #60 ml 07/23/21 01/14/22 Rx 70-30 mix 100 unit/mL subcutaneous susp (Novolin 70/30 U-100 Insulin) insulin syringe-needle U-100 1 mL #200 ea 07/30/21 01/14/22 Rx 31 gauge x 5/16" (BD Insulin Syringe Ultra-Fine) metformin 1,000 mg tablet 1,000 mg PO BID #180 tab 07/31/21 01/14/22 Rx pantoprazole 40 mg tablet,delayed 40 mg PO BID #180 tab 08/26/21 01/14/22 Rx release allopurinol 100 mg tablet 100 mg PO QAM 10/12/21 01/14/22 History amlodipine 10 mg tablet (Norvasc) 10 mg PO HS 10/12/21 01/14/22 History cholecalciferol (vitamin D3) 25 25 mcg PO HS 10/12/21 01/14/22 History mcg (1,000 unit) capsule losartan 50 mg tablet 50 mg PO QAM 10/12/21 01/14/22 History spironolactone 50 mg tablet 50 mg PO QAM 10/12/21 01/14/22 History albuterol sulfate 90 mcg/actuation 2 puff INHALATION Q6H PRN #8.5 g 11/08/21 01/14/22 Rx aerosol inhaler carvedilol 12.5 mg tablet 12.5 mg PO BID 11/13/21 01/14/22 History celecoxib 200 mg capsule (Celebrex) 200 mg PO DAILY 11/13/21 01/14/22 History cyclobenzaprine 5 mg tablet 5 - 10 mg PO Q8H PRN 11/13/21 01/14/22 History levothyroxine 25 mcg tablet 25 mcg PO DAILY #90 tab 12/05/21 01/14/22 Rx fluconazole 200 mg tablet See Rx Instructions .ROUTE 01/07/22 01/14/22 Rx .COMPLEX #15 tab prednisone 5 mg tablet 2.5 mg PO DAILY tab 01/07/22 01/14/22 History Patient History Medical History Bilateral tinnitus Chronic diastolic CHF (congestive heart failure) Diverticulosis Fibromyalgia GERD (gastroesophageal reflux disease) GIB (gastrointestinal bleeding) ulcerated hemangioma resected 2018 History of breast cancer RT (SURGERY WITH RADIATION) History of kidney stones HTN (hypertension) Hypomagnesemia Iron deficiency anemia Osteoarthritis Overactive bladder PMR (polymyalgia rheumatica) Pulmonary nodules Sleep apnea NO DEVICE "MILD" SNHL (sensorineural hearing loss) Spinal stenosis Subclinical hypothyroidism Transient ischemic attack (TIA) x 3 (2014, 2015, 2019) NO CURRENT PROBLEMS FROM EVENT Type 2 diabetes mellitus Surgical History H/O lithotripsy H/O lumpectomy RT X 2 History of arthroscopy RT KNEE History of bilateral tubal ligation History of breast biopsy History of cardiac cath 8 YEARS AGO -NO STENTS AT [facility] WITH DR. REGALADO History of colonoscopy History of esophagogastroduodenoscopy (EGD) History of tooth extraction S/P appendectomy Family History Grandmother Family history of diabetes mellitus Father Family history of diabetes mellitus Lung cancer Lung disease Mother MDP (myeloproliferative disorder) Family history of diabetes mellitus Glaucoma Hypertension Gall bladder disease Unknown Diabetes Leukemia Myocardial infarction Other No family history of adverse response to anesthesia Social History Smoking Status: Never smoker Second Hand Exposure: Yes ( A CHILD); Hx Alcohol Use: No Hx Substance Use: No Preferred Language: Congolese Communication Ability: Effective Internal Audit Manager Required: No Beliefs That Will Affect Care: None marital status: marital status details: No children Current Living Situation: Spouse current occupational status: retired 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 All else were negative. Physical Exam Physical Exam: VITAL SIGNS - Vital signs and nursing notes were reviewed. GENERAL - 76-year-old female appearing her stated age who is in no acute distress. Communicates well with provider and answers questions appropriately. SKIN - Without rashes. HEAD - NC/AT. EYES - PERRL with EOMI bilaterally. Sclera anicteric. EARS - No deformities of external structures noted on gross examination bilaterally. NOSE - Midline and without cyanosis. No epistaxis or purulent drainage noted. MOUTH/OROPHARYNX - Without perioral cyanosis. Buccal mucosa pink and moist. NECK - Neck with FROM. No nuchal rigidity. LUNGS - Chest wall symmetric without accessory muscle use, intercostals retractions, or central cyanosis. Normal vesicular breath sounds CTA B/L. No wheezes, rales, or rhonchi appreciated. CARDIAC - RRR with S1/S2. No murmur, rubs, or gallops appreciated. ABDOMEN - Abdominal contour obese without pulsations or visible masses. BS normoactive all four quadrants. No tenderness, palpable masses, hepatosplenomegaly, or ascites noted. EXTREMITIES - No clubbing or peripheral cyanosis. No pretibial edema present. +3/5 radial and dorsalis pedis pulses palpated throughout. +5/5 strength noted in UE/LE bilaterally. NEUROLOGIC - Cranial nerves II through XII grossly intact. Sensory intact to light touch throughout. PSYCH - A&Ox3 and cooperates fully with examiner. Pt is very pleasant and interacts well with examiner. Results & Data Results & Data ([facility]) Vital Signs (Past 12 Hours) Vital Signs Temp Pulse Pulse Resp BP BP Pulse Ox 01/14/22 20:31 81 20 124/81 95 01/14/22 19:30 76 18 185/65 H 96 01/14/22 18:40 71 12 205/69 H 96 01/14/22 16:38 48 L 24 185/75 H 94 01/14/22 16:37 49 L 24 94 01/14/22 16:15 36.5 C 49 L 16 170/68 H 92 Coding Level of Care Code Critical Care 1st 30-74 mins Diagnoses Admitted to intensive care unit Z78.9 Acute hyperkalemia E87.5 Bradycardia R00.1 HTN (hypertension) I10 Leukocytosis D72.829 Leukocytosis type: unspecified Time Spent (min) 32 (1) Leukocytosis Leukocytosis type: unspecified Qualified Code(s): D72.829 - Elevated white blood cell count, unspecified
[2022-01-14] MEDS: PANTOprazole 40 MG TAB PO SCH (22:03)
[2022-01-14] MEDS: CHOLECALCIFEROL 1,000 UNITS 25 MCG TAB PO SCH (22:03)
[2022-01-14] MEDS: amLODIPine BESYLATE 5 MG TAB PO SCH (22:03)
[2022-01-14] MEDS: carvediloL 12.5 MG TAB PO SCH (22:03)
[2022-01-14] MEDS: ASPIRIN 81 MG ECTAB PO SCH (22:04)
[2022-01-14] MEDS ORDERED: DEXTROSE 50% 50 ML SYRINGE IV PRN (22:13)
[2022-01-14] MEDS ORDERED: GLUCOSE 40% GEL 15 GM TUBE PO PRN (22:13)
[2022-01-14] MEDS ORDERED: GLUCOSE 10 TABS/TUBE PO PRN (22:13)
[2022-01-14] MEDS ORDERED: CARBOHYDRATES FOR HYPOGLYCEMIA PO PRN (22:13)
[2022-01-14] MEDS ORDERED: GLUCAGON FOR INJ 1 MG VIAL SQ PRN (22:13)
[2022-01-14] MEDS ORDERED: INSULIN GLARGINE SOLOSTAR 100 UNITS/ML 3 ML PEN SC ONE (22:30)
[2022-01-14] MEDS: INSULIN ASPART PER UNIT SC SCH (22:44)
[2022-01-14 23:30] LABS: BUN Creatinine Ratio 31.7 (10-20); Calcium 9.6 mg/dl (8.5-10.1); Est GFR (African American) 50.8 ml/min; Est GFR (Non-African American) 43.9 ml/min; Potassium 5.5 mmol/L (3.5-5.1)
[2022-01-15] MEDS ORDERED: SODIUM CHLORIDE 0.9% 1000ML 1,000 ML IV SCH (00:15)
[2022-01-15 04:59] LABS: Basophils # (auto) 0.02 K/uL (0-0.2); Basophils % (auto) 0.1 %; Eosinophils # (auto) 0.24 K/uL (0-0.5); Eosinophils % (auto) 1.8 %; Hematocrit (blood only) 35.3 % (37-47); Hemoglobin 11.1 g/dL (12.0-16.0); Immature Granulocytes # (auto) 0.13 K/uL (0.00-0.02); Lymphocytes # (auto) 2.78 K/uL (1.2-3.4); Lymphocytes % (auto) 20.5 %; Mean Corpuscular Hemoglobin 25.9 pg (25-34); Mean Corpuscular Hgb Conc 31.4 g/dL (32-36); Mean Corpuscular Volume 82.3 fL (80-100); Mean Platelet Volume 10.1 fL (7.4-10.4); Monocytes # (auto) 0.72 K/uL (0.11-0.59); Monocytes % (auto) 5.3 %; Neutrophils # (auto) 9.69 K/uL (1.4-6.5); Neutrophils % (auto) 71.3 %; Platelet Count 314 K/uL (130-400); RDW Coefficient of Variation 17.3 % (11.5-14.5); RDW Standard Deviation 52.2 fL (36.4-46.3); Red Blood Count 4.29 M/uL (4.2-5.4); White Blood Count 13.58 K/uL (4.8-10.8)
[2022-01-15 05:40] LABS: BUN Creatinine Ratio 32.4 (10-20); Calcium 9.3 mg/dl (8.5-10.1); Creatinine Clr Calc Pharmacy 55.1 ml/min; Est GFR (African American) 55.9 ml/min; Est GFR (Non-African American) 48.2 ml/min; Magnesium 1.6 mg/dl (1.7-2.4); Phosphorus 4.3 mg/dl (2.5-4.9); Potassium 4.6 mmol/L (3.5-5.1)
--- NOTE | 2022-01-15 07:50 | Critical Care Progress Note ---
Date of Service January 15, 2022 Assessment & Plan (1) Admitted to intensive care unit: Plan: Reason Critically Ill: 76-year-old female with acute hyperkalemia requiring close hemodynamic monitoring and monitoring for dysrhythmias in the setting of electrolyte derangement. NEURO - * CAM ICU: NEGATIVE CARDIAC/VASCULAR - * Bradycardia: * Likely secondary to profound hyperkalemia. * Bradycardia corrected with correction of underlying hyper-K. * Continue to monitor on telemetry. * Monitor on telemetry. RESPIRATORY - * No h/o pulmonary disease. * Saturating well on room air. GI/NUTRITION - * DM/Low K diet * Prophylaxis: Protonix RENAL/LYTES - * Hyperkalemia: * Agree that it is interesting that the patient has isolated elevation of potassium with minimal renal injury. Small degree of metabolic acidosis as well. As pointed out by hospitalist colleagues, only change in medication was the addition of fluconazole. * Regardless, patient thankfully w/o life threatening dysrhythmia. Heart rate improved w/ correction of Hyperkalemia. * Continue Bicarb gtt for now. Repeat labs at 2300. * Received aggressive treatment for her hyperkalemia prior to arrival in the ICU. * Monitor for changes in rhythm or ectopy. * Continue w/ IVF for noted EDIS as well. - * Grimes in place - Strict I&Os. ENDO - * DMII and hypothyroidism * BSGs per unit protocol. ISS --> gtt per unit policy. HEME - * Stable H&H ID - * Currently treated for thrush which has seemed to improve per patient. * Without fevers or other symptoms of underlying infection otherwise. * Negative PCT * Trend fever curve. Hold on antibiotics without distinguishable source of infection. LINES/IV ACCESS - * PIVs x2 * Grimes DVT PROPHYLAXIS - * SCDs With potassium having normalized patient stable for downgrade out of ICU (2) Acute hyperkalemia: (3) Bradycardia: (4) HTN (hypertension): (5) Leukocytosis: Admission and Anticipated Discharge Date Admission Date: January 14, 2022 Subjective Overnight patient continues to make adequate urine feels at baseline Review of Systems Review of Systems: no chest pain no shortness of breath Physical Exam Physical Exam: General: Alert. nontoxic. Skin: Warm, dry, Head: Atraumatic Ears, nose, mouth and throat: airway patent Cardiovascular: Normal peripheral perfusion Respiratory: no respiratory distress Gastrointestinal: Non distended Musculoskeletal: No deformity Results & Data Results & Data ([facility]) Vital Signs (Past 12 Hours) Vital Signs Pulse Pulse Resp BP BP Pulse Ox 01/15/22 06:00 67 18 127/40 L 92 01/15/22 05:01 67 19 153/51 H 95 01/15/22 05:00 72 21 94 01/15/22 04:00 65 15 125/51 L 90 01/15/22 03:00 65 15 124/41 L 93 01/15/22 02:01 68 20 93 01/15/22 02:00 65 16 92 01/15/22 01:00 66 17 92 01/15/22 00:00 68 16 136/51 L 94 01/14/22 23:00 70 21 133/43 L 94 01/14/22 22:01 80 21 128/99 93 01/14/22 22:00 70 20 94 01/14/22 21:52 78 19 177/61 H 98 01/14/22 20:31 81 20 124/81 95 Critical Care Results & Data Vital Signs (Past 12 Hours) Vital Signs Pulse Pulse Resp BP BP Pulse Ox 01/15/22 06:00 67 18 127/40 L 92 01/15/22 05:01 67 19 153/51 H 95 01/15/22 05:00 72 21 94 01/15/22 04:00 65 15 125/51 L 90 01/15/22 03:00 65 15 124/41 L 93 01/15/22 02:01 68 20 93 01/15/22 02:00 65 16 92 01/15/22 01:00 66 17 92 01/15/22 00:00 68 16 136/51 L 94 01/14/22 23:00 70 21 133/43 L 94 01/14/22 22:01 80 21 128/99 93 01/14/22 22:00 70 20 94 01/14/22 21:52 78 19 177/61 H 98 01/14/22 20:31 81 20 124/81 95 Lab & Micro Results (Past 24 Hours) RBC 4.29 M/uL (4.2-5.4) 01/15/22 WBC 13.58 K/uL (4.8-10.8) H 01/15/22 Hgb 11.1 g/dL (12.0-16.0) L 01/15/22 Hct 35.3 % (37-47) L 01/15/22 MCV 82.3 fL (80-100) 01/15/22 MCH 25.9 pg (25-34) 01/15/22 MCHC 31.4 g/dL (32-36) L 01/15/22 RDW Standard Deviation 52.2 fL (36.4-46.3) H 01/15/22 RDW Coefficient of Variation 17.3 % (11.5-14.5) H 01/15/22 Plt Count 314 K/uL (130-400) 01/15/22 MPV 10.1 fL (7.4-10.4) 01/15/22 Neutrophils (%) (Auto) 71.3 % 01/15/22 Lymphocytes (%) (Auto) 20.5 % 01/15/22 Monocytes # (Auto) 0.72 K/uL (0.11-0.59) H 01/15/22 Eosinophils # (Auto) 0.24 K/uL (0-0.5) 01/15/22 Immature Granulocyte % (Auto) 1.0 % 01/15/22 Neutrophils # (Auto) 9.69 K/uL (1.4-6.5) H 01/15/22 Lymphocytes # (Auto) 2.78 K/uL (1.2-3.4) 01/15/22 Monocytes # (Auto) 0.72 K/uL (0.11-0.59) H 01/15/22 Eosinophils # (Auto) 0.24 K/uL (0-0.5) 01/15/22 Basophils # (Auto) 0.02 K/uL (0-0.2) 01/15/22 Immature Granulocyte # (Auto) 0.13 K/uL (0.00-0.02) H 01/15/22 Na 139 mmol/L (136-145) 01/15/22 K 4.6 mmol/L (3.5-5.1) 01/15/22 Cl 101 mmol/L (98-107) 01/15/22 CO2 31 mmol/L (21-32) 01/15/22 Anion Gap 7 (3-11) 01/15/22 BUN 36 mg/dl (6-23) H 01/15/22 Creatinine 1.11 mg/dl (0.6-1.2) 01/15/22 Estimated GFR ( Amer) 55.9 ml/min 01/15/22 Estimated GFR (Non-Af Amer) 48.2 ml/min 01/15/22 BUN/Creatinine Ratio 32.4 (10-20) H 01/15/22 Glu 145 mg/dl (70-99(Fasting)) H 01/15/22 Ca 9.3 mg/dl (8.5-10.1) 01/15/22 Phosphorus Level 4.3 mg/dl (2.5-4.9) 01/15/22 Total Bilirubin 0.3 mg/dl (0.2-1.0) 01/14/22 AST 14 U/L (13-39) 01/14/22 ALT 24 U/L (7-52) 01/14/22 Alkaline Phosphatase 44 U/L (34-104) 01/14/22 TP 7.2 gm/dl (6.0-8.3) 01/14/22 Albumin 3.9 gm/dl (3.4-5.0) 01/14/22 Globulin 3.3 gm/dl (2.5-4.0) 01/14/22 Albumin/Globulin Ratio 1.2 (0.9-2) 01/14/22 Mg 1.6 mg/dl (1.7-2.4) L 01/15/22 04:49 01/15/22 Calcium Level 9.3 mg/dl (8.5-10.1) 01/15/22 04:49 01/15/22 Diagnostic Findings (Past 24 Hours) Chest X-Ray 01/14/22 16:35 SINGLE VIEW CHEST CLINICAL HISTORY: Atypical chest pain FINDINGS: An AP, portable, upright chest radiograph is compared to chest x-ray and chest CT dated 11/13/2021. The heart is enlarged noting atherosclerotic calcification of the thoracic aorta. Enlargement of the pulmonary trunk suggests pulmonary artery hypertension. The pulmonary vasculature is noncongested. There is chronic elevation of the right hemidiaphragm with bibasilar scarring/atelectasis. The lungs and pleural spaces are otherwise clear. No pneumothorax is seen. The skeletal structures are osteopenic. The bony thorax is grossly intact. IMPRESSION: Cardiomegaly with no acute cardiopulmonary abnormality. ACT 112: Negative or not required by law. Electronically signed by: Mateusz Moss M.D. 01/14/2022 5:07 PM I & O Totals 24 Hours 01/14/22 01/15/22 01/16/22 06:59 06:59 06:59 Intake Total 2360 / 2360 Output Total 3750 / 3750 Balance -1390 / -1390 Cumulative 01/14/22 16:02 thru 01/15/22 06:00 Intake Total 2360 Output Total 3750 Balance -1390 RT Ventilator Mngmt (Last Documented) Ventilator Ordered Settings Respiratory Rate 18 01/15/22 06:00 Ventilator - PT Measurements Respiratory Rate 18 Coding Level of Care Code 74179 Subseq Obs Care Lvl 3 Diagnoses Admitted to intensive care unit Z78.9 Acute hyperkalemia E87.5 Bradycardia R00.1 HTN (hypertension) I10 Leukocytosis D72.829 Leukocytosis type: unspecified (1) Leukocytosis Leukocytosis type: unspecified Qualified Code(s): D72.829 - Elevated white blood cell count, unspecified
[2022-01-15] MEDS: LEVOTHYROXINE SODIUM 25 MCG TABLET PO SCH (08:12)
[2022-01-15] MEDS: PANTOprazole 40 MG TAB PO SCH ×2 (08:12→20:44)
[2022-01-15] MEDS: allopurinoL 100 MG TAB PO SCH (08:12)
[2022-01-15] MEDS: INSULIN ASPART PER UNIT SC SCH ×4 (08:12→20:51)
[2022-01-15] MEDS: carvediloL 12.5 MG TAB PO SCH ×2 (08:12→20:44)
[2022-01-15] MEDS: predniSONE 2.5 MG TAB PO SCH (08:13)
--- NOTE | 2022-01-15 09:53 | Electrocardiogram Report ---
Test Reason : Blood Pressure : / mmHG Vent. Rate : 050 BPM Atrial Rate : 050 BPM P-R Int : 158 ms QRS Dur : 100 ms QT Int : 400 ms P-R-T Axes : 060 -32 030 degrees QTc Int : 364 ms Sinus bradycardia Left axis deviation Minimal voltage criteria for LVH, may be normal variant Abnormal ECG When compared with ECG of 13-NOV-2021 17:16, No significant change Confirmed by Ranjith Daley ([id number]) on 01/15/2022 9:53:37 AM Referred By: REFERRED SELF Confirmed By:Ranjith Daley
[2022-01-15] MEDS ORDERED: INSULIN GLARGINE SOLOSTAR 100 UNITS/ML 3 ML PEN SC ONE ×2 (10:00→21:00)
--- NOTE | 2022-01-15 11:55 | Gastrointestinal Consultation ---
Date of Consultation January 15, 2022 Assessment & Plan (1) Dysphagia: Discussed with Dr. Mancuso. Would advise Protonix 40 mg BID for now. Patient has had progressive dysphagia over 4 months without unintentional weight loss. She is tolerating a solid food diet. Outpatient orders are placed for an EGD to be scheduled. Given her bradycardia and profound hyperkalemia when she presented, she is not a good candidate for elective endoscopy as an inpatient and would advise further GI evaluation with EGD to occur as an outpatient. Our office will reach out to her to arrange outpatient endoscopy. Supervising Physician Co-Signing Physician Notes Agree with HEYDI Holland as above Gen: Obese, Cooperative, NAD Chest: CTA B/L, -w/r/r CVS: RRR Abd: Soft, NT, ND, +BS, no appreciable HSM Patient now with Systolic BP in the 200's, and with recent bradycardia, would recommend Cardiology evaluation prior to EGD If Cardiology would see patient during this admission and feel she is an adequate candidate to undergo EGD, could proceed as inpatient, otherwise, will recommend outpatient EGD History of Present Illness Reason for Consultation: Dysphagia Attending Physician: Forrest Hutchison MD History of Present Illness Patient is a 76 yo female who presented to [facility] with generalized weakness, fatigue, & bradycardia. She notes that her heart rate was in the 40s when she was exerting herself. She notes that she has a history of progressive dysphagia ongoing for several months. She notes this occurs with only certain foods. She has had no unintentional weight loss. She is eating chicken and Zucchini at the time of my visit. She notes that she was given Fluconazole by her PCP last week empirically for possible fungal infection and she was scheduled for an outpatient EGD. In the ED, her HR was 30. She was found to be profoundly hyperkalemic with a K of 8.1. She was admitted to the ICU and K is corrected to 4.6 this AM. HR now 66. GI has been asked to evaluate patient's dysphagia. Allergies Allergy/AdvReac Type Severity Reaction Status Date / Time Iodinated Contrast Media Allergy Severe ANAPHYLAXIS Verified 01/14/22 19:47 /CONVULSION S sumatriptan Allergy Severe SOB,INCREASED Verified 01/14/22 19:47 HEARTRATE Bactrim Allergy Intermediate hives Verified 03/15/18 10:08 ciprofloxacin Allergy Intermediate hives Verified 01/14/22 19:47 metronidazole Allergy Intermediate HIVES Verified 01/14/22 19:47 sulfamethoxazole Allergy Intermediate hives Verified 01/14/22 19:47 trimethoprim Allergy Intermediate hives Verified 01/14/22 19:47 adhesive AdvReac Severe SEVERE Verified 01/14/22 19:47 BURNING BLISTERS tramadol AdvReac Mild FATIGUE Verified 01/14/22 19:47 Home Medications Medication Instructions Recorded Confirmed Type lancets 30 gauge (OneTouch Delica #100 ea 08/25/19 01/14/22 Rx Lancets) aspirin 81 mg tablet,delayed 81 mg PO HS 02/27/20 01/14/22 History release (Adult Aspirin Regimen) magnesium oxide 400 mg PO HS 05/28/21 01/14/22 History blood sugar diagnostic #200 ea 07/23/21 01/14/22 Rx insulin human U-100 NPH-regulr 100 unit SUBCUT BID #60 ml 07/23/21 01/14/22 Rx 70-30 mix 100 unit/mL subcutaneous susp (Novolin 70/30 U-100 Insulin) insulin syringe-needle U-100 1 mL #200 ea 07/30/21 01/14/22 Rx 31 gauge x 5/16" (BD Insulin Syringe Ultra-Fine) metformin 1,000 mg tablet 1,000 mg PO BID #180 tab 07/31/21 01/14/22 Rx pantoprazole 40 mg tablet,delayed 40 mg PO BID #180 tab 08/26/21 01/14/22 Rx release allopurinol 100 mg tablet 100 mg PO QAM 10/12/21 01/14/22 History amlodipine 10 mg tablet (Norvasc) 10 mg PO HS 10/12/21 01/14/22 History cholecalciferol (vitamin D3) 25 25 mcg PO HS 10/12/21 01/14/22 History mcg (1,000 unit) capsule losartan 50 mg tablet 50 mg PO QAM 10/12/21 01/14/22 History spironolactone 50 mg tablet 50 mg PO QAM 10/12/21 01/14/22 History albuterol sulfate 90 mcg/actuation 2 puff INHALATION Q6H PRN #8.5 g 11/08/21 01/14/22 Rx aerosol inhaler carvedilol 12.5 mg tablet 12.5 mg PO BID 11/13/21 01/14/22 History celecoxib 200 mg capsule (Celebrex) 200 mg PO DAILY 11/13/21 01/14/22 History cyclobenzaprine 5 mg tablet 5 - 10 mg PO Q8H PRN 11/13/21 01/14/22 History levothyroxine 25 mcg tablet 25 mcg PO DAILY #90 tab 12/05/21 01/14/22 Rx fluconazole 200 mg tablet See Rx Instructions .ROUTE 01/07/22 01/14/22 Rx .COMPLEX #15 tab prednisone 5 mg tablet 2.5 mg PO DAILY tab 01/07/22 01/14/22 History Patient History Medical History Bilateral tinnitus Chronic diastolic CHF (congestive heart failure) Diverticulosis Fibromyalgia GERD (gastroesophageal reflux disease) GIB (gastrointestinal bleeding) ulcerated hemangioma resected 2018 History of breast cancer RT (SURGERY WITH RADIATION) History of kidney stones HTN (hypertension) Hypomagnesemia Iron deficiency anemia Osteoarthritis Overactive bladder PMR (polymyalgia rheumatica) Pulmonary nodules Sleep apnea NO DEVICE "MILD" SNHL (sensorineural hearing loss) Spinal stenosis Subclinical hypothyroidism Transient ischemic attack (TIA) x 3 (2014, 2015, 2019) NO CURRENT PROBLEMS FROM EVENT Type 2 diabetes mellitus Surgical History H/O lithotripsy H/O lumpectomy RT X 2 History of arthroscopy RT KNEE History of bilateral tubal ligation History of breast biopsy History of cardiac cath 8 YEARS AGO -NO STENTS AT [facility] WITH DR. REGALADO History of colonoscopy History of esophagogastroduodenoscopy (EGD) History of tooth extraction S/P appendectomy Family History Grandmother Family history of diabetes mellitus Father Family history of diabetes mellitus Lung cancer Lung disease Mother MDP (myeloproliferative disorder) Family history of diabetes mellitus Glaucoma Hypertension Gall bladder disease Unknown Diabetes Leukemia Myocardial infarction Other No family history of adverse response to anesthesia Social History Smoking Status: Never smoker Second Hand Exposure: Yes ( A CHILD); Hx Alcohol Use: No Hx Substance Use: No Preferred Language: Greenlandic Communication Ability: Effective District Sales Manager Required: No Beliefs That Will Affect Care: None marital status: marital status details: No children Current Living Situation: Spouse current occupational status: retired 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 [employer] Feels Safe at Home: Yes Safety Concerns: Feels Safe At This Time Assistive Devices: Walker Results & Data ([facility]) Vital Signs (Past 12 Hours) Vital Signs Temp Pulse Resp BP Pulse Ox 01/15/22 10:00 63 24 136/46 L 96 01/15/22 09:00 69 18 134/56 L 93 01/15/22 08:00 36.4 C L 68 29 H 143/51 H 94 01/15/22 07:00 71 16 133/64 96 01/15/22 06:00 67 18 127/40 L 92 01/15/22 05:01 67 19 153/51 H 95 01/15/22 05:00 72 21 94 01/15/22 04:00 65 15 125/51 L 90 01/15/22 03:00 65 15 124/41 L 93 01/15/22 02:01 68 20 93 01/15/22 02:00 65 16 92 01/15/22 01:00 66 17 92 01/15/22 00:00 68 16 136/51 L 94 PG Care Time/CCT Total # of Minutes Spent Total Time Spent with Patient: Total time spent is greater than 50% in coordination of care (as documented) at patient's floor/unit and/or counseling patient: Coding Level of Care Code 25992 Initial Inpt Care Lvl 3 Diagnoses Dysphagia R13.10
[2022-01-15] MEDS ORDERED: MAGNESIUM SULFATE / D5W 1 GM/100 ML BAG IV ONE (13:45)
--- NOTE | 2022-01-15 16:44 | Pharmacy Report ---
Pharmacy Glycemic Short Note 2 - Date of Service January 15, 2022 - Glycemic Short BSG Results (Last 24 hours): 01/14/22 01/14/22 01/14/22 16:48 17:56 18:14 Glucose 243 H 227 H POC Glucose POC Glucose (other) 227 H 01/14/22 01/14/22 01/14/22 20:24 22:39 23:02 Glucose 159 H 217 H POC Glucose 175 H POC Glucose (other) 01/15/22 01/15/22 01/15/22 04:49 04:55 07:55 Glucose 145 H POC Glucose 134 H 136 H POC Glucose (other) 01/15/22 01/15/22 11:26 16:20 Glucose POC Glucose 271 H 242 H POC Glucose (other) OUTPATIENT ANTIDIABETIC REGIMEN: * Novolin 70/30 100 units SC BID * Metformin 1000mg BID * A1c: 7% ASSESSMENT: * Patient presenting with hyperkalemia now admitted to the ICU. * Patient received 40 units of lantus last evening and fasting BSG was well controlled at 136 mg/dL this morning. * Morning Lantus dose was withheld pending verification of PO intake around 10am. * Novolog scale tightened for dinner time. * Patient is tolerating a diet but does have dysphagia so PO intake should be monitored PLAN FOR INPATIENT GLYCEMIC CONTROL: * Hold outpatient oral diabetes medications * Basal insulin * Lantus 40 units SQ X 1 last evening * Lantus 30 units SQ X 1 this morning * Lantus scale SQ this evening- 30, 40, 50 units per scale see MAR for details * Bolus insulin * NovoLog per scale ACHS or Q6hrs while NPO * Goal Range: Low 110 mg/dL - High 140 mg/dL * Correction Factor: 15 mg/dL/unit * Nutritional / Prandial insulin per carb ratio of 1 unit per 5 grams CHO consumed
--- NOTE | 2022-01-15 17:33 | Hospitalist Progress Note ---
Date of Service January 15, 2022 Assessment & Plan (1) Acute hyperkalemia: Plan: Severe hyperkalemia with POC potassium 8.1 (lab drawn 7.6) with EKG changes (peaked TW, bradycardia, prolonged NM) and neuromuscular weakness Emergent treatment given in the ER including sodium bicarb 100 meq IV, Insulin 10 units IV, Dextrose 50% 50ml, Calcium gluconate 1000mg IV x2 Unclear definitive etiology although patient is on losartan and spironolactone although no acute changes in these medications. Also hold Celebrex acutely. Case reports of fluconazole causing hyperkalemia seem to be the most likely acute cause given she just started this medication therefore will discontinue this. fluconazole also implicated in adrenal insufficiency and pt is on chronic steroids for PMR check am cortisol and if low consider cosyntropin stim test if Bp low temp low just use stress dose steroids at that time down grade from ICU at this time (2) EDIS (acute kidney injury): Plan: increase from 0.85 to 1.54 trending back down (3) Dysphagia: Plan: 1.5 months of this. Was recently started on fluconazole for concern for esophageal thrush. No thrush on exam GI medicine did eval and will have outpt EGD and recommends bid Protonix (4) Leukocytosis: Plan: Suspect stress reaction. No infection symptoms/signs on exam, negative procalcitonin pending blood cultures (5) HTN (hypertension): Plan: Hold medications that can cause hyperkalemia such as losartan, spironolactone. Now heart rate improved continue carvedilol 12.5mg PO BID Lasix 40mg IV given now in ER Continue amlodipine 10mg PO HS (6) PMR (polymyalgia rheumatica): Plan: Continue prednisone 2.5mg PO daily, check am cortisol (7) Type 2 diabetes mellitus: Plan: Hemoglobin A1C 7.0 in 10/2021 Hold metformin and usual NPH 70/30 100 units BID Consult pharmacy for glycemic control during inaptient stay (8) Chronic diastolic CHF (congestive heart failure): Plan: euvolemic did not restart diurteics (9) Iron deficiency anemia: Plan: History of iron def. anemia noted. Hgb 11.5 at baseline. Monitor with CBC in AM. (10) Fibromyalgia: Plan: Noted history of this. (11) Hypomagnesemia: Plan: replete (12) Subclinical hypothyroidism: Plan: TSH 1.09 in October Continue levothyroxine 25 mcg PO daily (13) History of TIA (transient ischemic attack): Plan: Continue aspirin Plan: VTE Prophylaxis - deferred to ICU team Diet - T2DM, low K Disposition - downgrade Admission and Anticipated Discharge Date Admission Date: January 14, 2022 Subjective pt feels improved today, discusses pill and coarse food difficulties, has been going on for months without significant weight loss, has improved potassium Review of Systems Review of Systems: Mild distress and fatigue, remains relatively weakend no headache, no visual changes no speech or swallowing issues no chest pain, pressure or palpitations no shortness of breath, has not ambulated yet no abdominal pain, nausea or vomiting, diarrhea or constipation no dysuria, hematuria or frequency no focal joint pain or swelling no back pain, CVA tenderness or radicular pain no bruising, bleeding or rashes no focal signs of weakness or numbness or altered sensation no complaints of anxiety or depression.. Physical Exam Physical Exam: The patient appeared well nourished and normally developed. Vital signs as documented. Head exam is normocephalic atraumatic Neck is without JVD, thyromegaly, or carotid bruits. Lungs are clear to auscultation, no focal loss of breath sounds Cardiac exam, Rhythm is regular.. No murmurs, rubs or gallops. Abdominal exam reveals normal bowel sounds, soft non tender, no masses Extremities are nonedematous and both pedal pulses are present Neurologic exam is alert and oriented, no focal loss of strength or sensation Skin is without bruises or rashes Psychologically is without concerns for anxiety or depression.. Results & Data Results & Data ([facility]) Vital Signs (Past 12 Hours) Vital Signs Temp Pulse Resp BP Pulse Ox 01/15/22 17:06 97.9 F 01/15/22 10:00 63 24 136/46 L 96 01/15/22 09:00 69 18 134/56 L 93 01/15/22 08:00 97.5 F L 68 29 H 143/51 H 94 01/15/22 07:00 71 16 133/64 96 01/15/22 06:00 67 18 127/40 L 92 PG Care Time/CCT Total # of Minutes Spent Total Time Spent with Patient: Total time spent is greater than 50% in coordination of care (as documented) at patient's floor/unit and/or counseling patient: Coding Level of Care Code 22191 Subseq Hosp Care Lvl 3 Diagnoses Acute hyperkalemia E87.5 EDIS (acute kidney injury) N17.9 Dysphagia R13.10 Leukocytosis D72.829 Leukocytosis type: unspecified HTN (hypertension) I10 PMR (polymyalgia rheumatica) M35.3 Type 2 diabetes mellitus E11.65; Z79.4 Diabetes mellitus complication status: with hyperglycemia Diabetes mellitus terminal worker insulin use: with terminal worker use Chronic diastolic CHF (congestive heart failure) I50.32 Iron deficiency anemia D50.9 Fibromyalgia M79.7 Hypomagnesemia E83.42 Subclinical hypothyroidism E03.8 History of TIA (transient ischemic attack) Z86.73 (1) Type 2 diabetes mellitus Diabetes mellitus complication status: with hyperglycemia Diabetes mellitus senior care insulin use: with terminal worker use Qualified Code(s): E11.65 - Type 2 diabetes mellitus with hyperglycemia; Z79.4 - intermediate manager (current) use of insulin (2) Leukocytosis Leukocytosis type: unspecified Qualified Code(s): D72.829 - Elevated white blood cell count, unspecified
[2022-01-15] MEDS: amLODIPine BESYLATE 5 MG TAB PO SCH (20:43)
[2022-01-15] MEDS: ASPIRIN 81 MG ECTAB PO SCH (20:44)
[2022-01-15] MEDS: CHOLECALCIFEROL 1,000 UNITS 25 MCG TAB PO SCH (20:44)
[2022-01-15] MEDS ORDERED: MAGNESIUM OXIDE 400 MG TAB PO SCH (21:00)
[2022-01-16] MEDS ORDERED: INSULIN ASPART PER UNIT SC ONE (02:00)
[2022-01-16] MEDS: LEVOTHYROXINE SODIUM 25 MCG TABLET PO SCH (06:00)
[2022-01-16 07:46] LABS: Basophils # (auto) 0.03 K/uL (0-0.2); Basophils % (auto) 0.3 %; Eosinophils # (auto) 0.27 K/uL (0-0.5); Eosinophils % (auto) 2.3 %; Hematocrit (blood only) 35.1 % (37-47); Hemoglobin 11.2 g/dL (12.0-16.0); Immature Granulocytes # (auto) 0.13 K/uL (0.00-0.02); Immature Granulocytes % (auto) 1.1 %; Lymphocytes # (auto) 2.13 K/uL (1.2-3.4); Lymphocytes % (auto) 18.2 %; Mean Corpuscular Hgb Conc 31.9 g/dL (32-36); Mean Corpuscular Volume 81.6 fL (80-100); Mean Platelet Volume 10.3 fL (7.4-10.4); Monocytes # (auto) 0.58 K/uL (0.11-0.59); Neutrophils # (auto) 8.54 K/uL (1.4-6.5); Neutrophils % (auto) 73.1 %; Platelet Count 320 K/uL (130-400); RDW Coefficient of Variation 17.3 % (11.5-14.5); RDW Standard Deviation 51.8 fL (36.4-46.3); White Blood Count 11.68 K/uL (4.8-10.8)
[2022-01-16 08:12] LABS: BUN Creatinine Ratio 27.8 (10-20); Calcium 9.2 mg/dl (8.5-10.1); Creatinine Clr Calc Pharmacy 55.8 ml/min; Est GFR (African American) 57.7 ml/min; Est GFR (Non-African American) 49.8 ml/min; Magnesium 1.9 mg/dl (1.7-2.4); Phosphorus 3.6 mg/dl (2.5-4.9); Potassium 4.6 mmol/L (3.5-5.1)
--- NOTE | 2022-01-16 08:31 | Pharmacy Report ---
Pharmacy Glycemic Short Note 2 - Date of Service January 16, 2022 - Glycemic Short BSG Results (Last 24 hours): 01/15/22 01/15/22 01/15/22 11:26 16:20 20:12 Glucose POC Glucose 271 H 242 H 235 H 01/16/22 01/16/22 01/16/22 01:55 07:20 07:48 Glucose 210 H POC Glucose 206 H 188 H OUTPATIENT ANTIDIABETIC REGIMEN: * Novolin 70/30 100 units SC BID * Metformin 1000mg BID * A1c: 7% ASSESSMENT: 01/16/22 * Patient received 110 units of insulin yesterday, 80 units basal, blood sugars above goal last 24 hours * Fasting 188mg/dl even with overnight correction, increase basal * Tighten CR slightly for better postprandial control, decent CHO intake yesterday, pt w/ significant dysphagia * On home dose prednisone 2.5mg PO Daily 01/15/22 * Patient presenting with hyperkalemia now admitted to the ICU. * Patient received 40 units of Lantus last evening and fasting BSG was well controlled at 136 mg/dL this morning. * Morning Lantus dose was withheld pending verification of PO intake around 10am. * NovoLog scale tightened for dinner time. * Patient is tolerating a diet but does have dysphagia so PO intake should be monitored PLAN FOR INPATIENT GLYCEMIC CONTROL: * Hold outpatient oral diabetes medications * Basal insulin * Lantus SQ BID, 40 units BSG 110mg/dl or less, 50 units BSG > 110mg/dl * Bolus insulin * NovoLog per scale ACHS or Q6hrs while NPO * Goal Range: Low 110 mg/dL - High 140 mg/dL * Correction Factor: 15 mg/dL/unit * Nutritional / Prandial insulin per carb ratio of 1 unit per 4 grams CHO consumed
[2022-01-16] MEDS: INSULIN ASPART PER UNIT SC SCH ×2 (08:46→12:13)
[2022-01-16] MEDS: carvediloL 12.5 MG TAB PO SCH (08:47)
[2022-01-16] MEDS: allopurinoL 100 MG TAB PO SCH (08:48)
[2022-01-16] MEDS: predniSONE 2.5 MG TAB PO SCH (08:48)
[2022-01-16] MEDS: PANTOprazole 40 MG TAB PO SCH (08:48)
[2022-01-16] MEDS ORDERED: INSULIN GLARGINE SOLOSTAR 100 UNITS/ML 3 ML PEN SC SCH (09:00)
--- NOTE | 2022-01-16 13:00 | Discharge Summary ---
Date of Service January 16, 2022 Admission HPI Per Admitting Provider Carrol Wilde is a 76 year old female who present to the ER with generalized weakness, fatigue and bradycardia for the last 3 days. She reports her heart rate has been in the 40s when she was walking therefore decided to come to the ER. She has a history of PMR and reduced her dose a month ago from 5 down to 2.5mg therefore wonders whether the reduction is causing increased pain and fatigue all over. She separately noted an episode of right upper quadrant abdominal pain lasting for an hour last night, sharp stabbing pain. She does note intermittent gallstone pain associated with fatty, greasy foods but this usually relieves by itself after a few minutes. She currently denies any nausea, vomiting, abdominal pain or diarrhea. She also notes a history of dysphagia for the last 6 weeks with associated sore throat. She was prescribed fluconazole 1 week ago for suspected esophageal thrush as dull-white patches were noted in the back of her throat. Plan was to empirically treat but arrange EGD if she does not have resolution of her symptoms. She has noticed improvement in her sore throat just starting today but is still having significant dysphagia with any solids and pills but not liquids. She is passing good urine. Reports increased urination chronically associated with her carbohydrate intake but no acute dysuria, CVA tenderness, fever, chills, change in frequency, small or color. In the ER she was noted to have a potassium level 7.6 with confirmation POC 8.1. She was given emergent treatment of calcium gluconate 2g, Sodium bicarb 100 meq IV, Insulin 10 units / dextrose 50% 50ml, 1L NSS bolus. Principal Diagnosis hyperkalemia pill dysphagia Discharge Exam The patient appeared stable Vital signs as documented. Lungs are clear to auscultation and appear unlabored Cardiac exam, Rhythm is regular.. No murmurs, rubs or gallops. Abdominal exam reveals normal bowel sounds, soft non tender, no masses Extremities are nonedematous and both pedal pulses are normal. Neurologic exam is alert and oriented, no focal loss of strength or sensation Skin is without bruises or rashes Psychologically is without concerns for anxiety or depression. Discharge Data Allergies Allergy/AdvReac Type Severity Reaction Status Date / Time Iodinated Contrast Media Allergy Severe ANAPHYLAXIS Verified 01/14/22 19:47 /CONVULSION S sumatriptan Allergy Severe SOB,INCREASED Verified 01/14/22 19:47 HEARTRATE Bactrim Allergy Intermediate hives Verified 03/15/18 10:08 ciprofloxacin Allergy Intermediate hives Verified 01/14/22 19:47 metronidazole Allergy Intermediate HIVES Verified 01/14/22 19:47 sulfamethoxazole Allergy Intermediate hives Verified 01/14/22 19:47 trimethoprim Allergy Intermediate hives Verified 01/14/22 19:47 adhesive AdvReac Severe SEVERE Verified 01/14/22 19:47 BURNING BLISTERS tramadol AdvReac Mild FATIGUE Verified 01/14/22 19:47 Consultations 01/14/22 18:19 ED Decision to Admit Stat 01/14/22 21:37 Consult Implementation Specialist Routine 01/15/22 13:30 Consult Gastroenterology Routine Hospital Course (1) Transition of care performed with sharing of clinical summary: Patient's hyperkalemia was attributed to medications although can not rule out a factor of adrenal insufficiency since she is on chronic steroids. Stop fluconazole hold losartan spironolactone at discharge Check blood work in 5 days follow-up with PCP as an outpatient Given low potassium diet information Asked to discuss either stress dose steroids if the patient is to remain on prednisone or stopping prednisone since he is on such a low-dose. (2) Acute hyperkalemia: Severe hyperkalemia with POC potassium 8.1 (lab drawn 7.6) with EKG changes (peaked TW, bradycardia, prolonged FL) and neuromuscular weakness Emergent treatment given in the ER including sodium bicarb 100 meq IV, Insulin 10 units IV, Dextrose 50% 50ml, Calcium gluconate 1000mg IV x2 Unclear definitive etiology although patient is on losartan and spironolactone although no acute changes in these medications. Case reports of fluconazole causing hyperkalemia seem to be the most likely acute cause given she just started this medication therefore will discontinue this. fluconazole also implicated in adrenal insufficiency and pt is on chronic steroids for PMR am cortisol is reasonable at this time did not pursue cosyntropin stimulation test (3) EDIS (acute kidney injury): Resolved (4) Dysphagia: 1.5 months of this. Was recently started on fluconazole for concern for esophageal thrush. No thrush on exam GI medicine did eval and will have outpt EGD and recommends bid Protonix (5) Leukocytosis: Downtrending. No infection symptoms/signs on exam, negative procalcitonin pending blood cultures (6) HTN (hypertension): Hold medications that can cause hyperkalemia such as losartan, spironolactone. continue carvedilol 12.5mg PO BID amlodipine 10mg PO HS (7) PMR (polymyalgia rheumatica): Continue prednisone 2.5mg PO daily, discussed efficacy with carry out clerk or primary care physician (8) Type 2 diabetes mellitus: Hemoglobin A1C 7.0 in 10/2021 Resume metformin and usual NPH 70/30 100 units BID (9) Chronic diastolic CHF (congestive heart failure): euvolemic (10) Iron deficiency anemia: History of iron def. anemia noted. Hgb 11.5 at baseline. Monitor with CBC in AM. (11) Fibromyalgia: . (12) Hypomagnesemia: replete (13) Subclinical hypothyroidism: TSH 1.09 in October Continue levothyroxine 25 mcg PO daily (14) History of TIA (transient ischemic attack): Continue aspirin Total Time Total Time Spent Total Time Spent (In Minutes): It required greater than 30 minutes to prepare this patient for discharge Discharge Plan Discharge Items Patient Disposition: Home - Self-Care Reason For Visit: HYPERKALEMIA Discharge Diagnosis: high potassium->attributed to medication, resolved pill dysphagia seen by Gastroenterology, Dr Mancuso, with planned outpt EGD Activity: Per Instructions section Activity Comment: please gradually increase your activity Non-emergency contact: Primary Care Provider Call non-emergency contact if: your symptoms worsen Follow-up/Referrals: Lucila Rojas MD [Primary Care Provider] - 01/24/22 3:00 pm Diet: Regular Ambulatory Orders: Basic Metabolic Panel (Routine) Timeframe: 5 Days Location: Determined by Patient Ordered By: Forrest Pak Attending Provider Instructions: You were treated for high potassium which is responded favorably to treatment. The high potassium level can be attributed to the fluconazole medicine you are prescribed for your swallowing difficulties. At this point time we are going to ask you do not continue this medication but as you know you were seen by Dr. Mancuso in the hospital and will have an outpatient test to look at your esophagus and swallowing. Until this time we asked that you eat a low potassium diet which will give you a some information on. We will ask that you get your blood work checked next week and follow-up with your primary care physician after that. Since you are on daily prednisone therapy there may be times in the future but you may benefit from having higher doses of prednisone while you are under physical stressors. However until we complete your GI evaluation to be sure the prednisone is not causing some irritation we will ask you remain on your typical dose or discuss with the prescribing physician perhaps coming off of it altogether since it is such a low dose We will also asked that you hold your losartan and spironolactone until we repeat your blood work next week you can have further advice on restarting these medications from your primary care physician. Pending Studies at Discharge: No Stand-Alone Forms: [facility], Smoking Cessation Medications and DC Order Prescriptions: Continued (DME) lancets [OneTouch Delica Lancets] 30 gauge misc See Rx Instructions .ROUTE .MEDSUPPLY Qty: 100 RF: 5 magnesium oxide 400 mg magnesium tablet 400 mg PO HS RF: 0 Novolin 70/30 U-100 Insulin 100 unit/mL (70-30) suspension 100 unit SUBCUT BID Qty: 60 RF: 11 (DME) blood sugar diagnostic Strip See Rx Instructions .ROUTE .MEDSUPPLY Qty: 200 RF: 5 (DME) insulin syringe-needle U-100 [BD Insulin Syringe Ultra-Fine] 1 mL 31 gauge x 5/16 syringe See Rx Instructions .Route Qty: 200 RF: 3 metformin 1,000 mg tablet 1,000 mg PO BID Qty: 180 RF: 3 pantoprazole 40 mg tablet,delayed release (DR/EC) 40 mg PO BID Qty: 180 RF: 3 albuterol sulfate 90 mcg/actuation HFA aerosol inhaler 2 puff inhalation Q6H PRN (Reason: shortness of breath or wheezing) Qty: 8.5 RF: 3 levothyroxine 25 mcg tablet 25 mcg PO DAILY Qty: 90 RF: 3 prednisone 5 mg tablet 2.5 mg PO DAILY RF: 0 aspirin [Adult Aspirin Regimen] 81 mg tablet,delayed release (DR/EC) 81 mg PO HS RF: 0 allopurinol 100 mg tablet 100 mg PO QAM RF: 0 amlodipine [Norvasc] 10 mg tablet 10 mg PO HS RF: 0 cholecalciferol (vitamin D3) 25 mcg (1,000 unit) capsule 25 mcg PO HS RF: 0 celecoxib [Celebrex] 200 mg capsule 200 mg PO DAILY RF: 0 carvedilol 12.5 mg tablet 12.5 mg PO BID RF: 0 Discontinued fluconazole 200 mg tablet See Rx Instructions .ROUTE .COMPLEX Qty: 15 RF: 0 losartan 50 mg tablet 50 mg PO QAM RF: 0 spironolactone 50 mg tablet 50 mg PO QAM RF: 0 cyclobenzaprine 5 mg tablet 5 - 10 mg PO Q8H PRN (Reason: muscle spasm) RF: 0 Discharge Orders: Discharge Order (Routine); Ordered 01/16/22 Ordered By: Forrest Salas/Other Patient Handouts: Low Potassium Diet Dc Admission Data Admit Date/Time: 01/14/22 18:55 Attending Provider: Forrest Hutchison Admit Provider: Neo Cortes Primary Care Provider: Lucial Rojas Other Providers: Neo Cortes ; Eusebio Brooks ; Carmine Mancuso Coding Level of Care Code D/C DAY MANAGEMENT >30 MINS Diagnoses Acute hyperkalemia E87.5 EDIS (acute kidney injury) N17.9 Dysphagia R13.10 Leukocytosis D72.829 Leukocytosis type: unspecified HTN (hypertension) I10 PMR (polymyalgia rheumatica) M35.3 Type 2 diabetes mellitus E11.65; Z79.4 Diabetes mellitus complication status: with hyperglycemia Diabetes mellitus mcfp insulin use: with mcfp use Chronic diastolic CHF (congestive heart failure) I50.32 Iron deficiency anemia D50.9 Fibromyalgia M79.7 Hypomagnesemia E83.42 Subclinical hypothyroidism E03.8 History of TIA (transient ischemic attack) Z86.73 Transition of care performed with sharing of clinical summary
== END 2022-01-16 13:41 | disposition home or self-care (01) | DRG 641 ==
LOC: ED 16:02 → 1E 18:55 → INTOOBSV 18:55 → SUATTDRO 18:55 → 1E 20:40 → 2W 01-15 20:11

== ENCOUNTER 2022-10-31 20:37 | Observation (INO) ==
[2022-10-31 21:39] LABS: Basophils # (auto) 0.09 K/uL (0-0.2); Basophils % (auto) 0.5 %; Eosinophils # (auto) 0.07 K/uL (0-0.50); Eosinophils % (auto) 0.4 %; Hematocrit (blood only) 41.5 % (37.0-47.0); Hemoglobin 13.1 g/dl (12.0-16.0); Immature Granulocytes % (auto) 2.3 %; Lymphocytes # (auto) 1.79 K/uL (1.2-3.4); Lymphocytes % (auto) 10.1 %; Mean Corpuscular Hemoglobin 23.2 pg (25.0-34.0); Mean Corpuscular Hgb Conc 31.6 g/dL (32.0-36.0); Mean Corpuscular Volume 73.5 fL (80.0-100.0); Monocytes # (auto) 0.42 K/uL (0.11-0.59); Monocytes % (auto) 2.4 %; Neutrophils # (auto) 14.95 K/uL (1.40-6.50); Neutrophils % (auto) 84.3 %; Platelet Count 392 K/uL (130-400); RDW Coefficient of Variation 22.6 % (11.5-14.5); RDW Standard Deviation 55.6 fL (36.4-46.3); Red Blood Count 5.65 M/uL (4.20-5.40); White Blood Count 17.72 K/ul (4.8-10.8)
[2022-10-31 21:42] LABS: Albumin Globulin Ratio 1.1 (0.9-2); Albumin Level 4.1 gm/dl (3.4-5.0); BUN Creatinine Ratio 29.8 (10-20); Bilirubin,Total 0.4 mg/dl (0.2-1.0); Calcium 10.6 mg/dl (8.6-10.3); Creatinine Clr Calc Pharmacy 53.7 ml/min; Est GFR (African American) 53.7 ml/min; Est GFR (Non-African American) 46.3 ml/min; Globulin 3.9 gm/dl (2.5-4.0); Potassium 4.7 mmol/L (3.5-5.1)
[2022-10-31 21:50] LABS: Troponin I High Sensitivity 8.3 pg/ml (0-14)
[2022-10-31 21:51] LABS: Partial Thromboplastin Time 26.6 Seconds (21.0-31.0); Prothrombin Time 10.6 Seconds (9.0-12.0)
[2022-10-31 22:08] LABS: Anisocytosis Present; Echinocytes 1+; Polychromasia 1+
--- NOTE | 2022-10-31 22:53 | XRay Report ---
SINGLE VIEW CHEST CLINICAL HISTORY: Atypical chest pain. FINDINGS: An AP, portable, upright chest radiograph is compared to study dated 01/14/2022 and correlat ed with chest CT dated 11/13/2021. The heart is top normal for projection noting atherosclerotic calci fication of the thoracic aorta. There is mild elevation of the right hemidiaphragm with bibasilar sca rring/atelectasis. Chronic interstitial thickening is similar to previous. No airspace consolidation or large pleural effusion is identified. No pneumothorax is seen. The skeletal structures are osteope rafaela. The bony thorax is grossly intact. Degenerative change is noted in the thoracic spine. IMPRESSION: No acute cardiopulmonary abnormality. ACT 112: Negative or not required by law. Electronically signed by: Mateusz Moss M.D. 10/31/2022 10:51 PM
--- NOTE | 2022-11-01 00:10 | Emergency Department Note ---
History of Present Illness General Chief complaint: Shortness of Breath/Dyspnea Stated complaint: IRREGULAR HEART BEAT, OXYGEN AT 88, SOB Time Seen by Provider: 10/31/22 22:28 History of Present Illness Maximum Pain Intensity: 6 This 77-year-old female presents ER complaining of worsening shortness of breath for the past few weeks. Patient denies weight gain, worsening leg pain or swel ling, fever, chills, flulike illness. She occasionally gets chest pains. Patient states she will check her pulse ox at night when she sleeping and notices it is low. She is post to wear her CPAP machine but does not like it. She is concerned about her low oxygen levels. Here in the ER and has been normal. Home Medications Medication Instructions Recorded Confirmed Type lancets 30 gauge ([employer] [place] #100 ea 08/25/19 11/01/22 Rx Lancets) aspirin 81 mg tablet,delayed 81 mg PO HS 02/27/20 11/01/22 History release (Adult Aspirin Regimen) allopurinol 100 mg tablet 100 mg PO DAILY 10/12/21 11/01/22 History losartan 50 mg tablet 50 mg PO BID #180 tabs 05/12/22 11/01/22 Rx metformin 500 mg tablet,extended 500 mg PO BID #180 tabs 05/13/22 11/01/22 Rx release 24 hr blood sugar diagnostic #200 ea 08/22/22 11/01/22 Rx insulin human U-100 NPH-regulr 100 unit subcut BID 30 days #60 mL 08/22/22 11/01/22 Rx 70-30 mix 100 unit/mL subcutaneous susp (Novolin 70/30 U-100 Insulin) amlodipine 10 mg tablet (Norvasc) 10 mg PO QPM 09/09/22 11/01/22 History celecoxib 200 mg capsule (Celebrex) 200 mg PO QPM 09/09/22 11/01/22 History diclofenac sodium 1 % topical gel 2 g topical QID PRN Pain 09/09/22 11/01/22 History (Voltaren Arthritis Pain) pantoprazole 40 mg tablet,delayed 40 mg PO BID #180 tabs 09/11/22 11/01/22 Rx release carvedilol 6.25 mg tablet 6.25 mg PO BID #180 tabs 10/13/22 11/01/22 Rx insulin syringe-needle U-100 1 mL #200 ea 10/13/22 11/01/22 Rx 31 gauge x 5/16" (BD Insulin Syringe Ultra-Fine) nystatin 100,000 unit/mL oral 500,000 unit (5 mL) PO TID 7 days 10/29/22 11/01/22 Rx suspension #105 mL prednisone 5 mg tablet 10 mg PO DAILY 11/01/22 11/01/22 History Allergies Allergy/AdvReac Type Severity Reaction Status Date / Time Bactrim Allergy Intermediate hives Verified 03/15/18 10:08 ciprofloxacin Allergy Unknown hives Verified 09/15/22 09:28 Iodinated Contrast Media Allergy Unknown ANAPHYLAXIS Verified 09/15/22 09:28 /CONVULSION S metronidazole Allergy Unknown HIVES Verified 09/15/22 09:28 sulfamethoxazole Allergy Unknown hives Verified 09/15/22 09:28 sumatriptan Allergy Unknown SOB,INCREASED Verified 09/15/22 09:28 HEARTRATE trimethoprim Allergy Unknown hives Verified 09/15/22 09:28 adhesive AdvReac Unknown SEVERE Verified 09/15/22 09:28 BURNING BLISTERS fluconazole AdvReac Unknown hyperkalemi Verified 09/15/22 09:28 a tramadol AdvReac Unknown FATIGUE Verified 09/15/22 09:28 Past Med/Surg History Medical History Bilateral tinnitus Chronic diastolic CHF (congestive heart failure) type 1 diastolic dysfunction on echo Difficult intravenous access difficult iv access left arm Difficulty swallowing reason for upcoming procedure Diverticulosis surgical intervention recommended / not yet scheduled Fibromyalgia GERD (gastroesophageal reflux disease) GIB (gastrointestinal bleeding) ulcerated hemangioma resected 2018 History of breast cancer RT x2 dx 2001 & 2010 (SURGERY WITH RADIATION) History of colon polyps History of kidney stones HTN (hypertension) Incisional breast wound right / reason for current abx / under care of general surgeon and pcp Iron deficiency anemia Osteoarthritis Overactive bladder PMR (polymyalgia rheumatica) Pulmonary nodules Sleep apnea NO DEVICE "MILD" SNHL (sensorineural hearing loss) Spinal stenosis Statin myopathy Subclinical hypothyroidism Transient ischemic attack (TIA) x 4 (2014, 2015, 2019, 2021) NO CURRENT PROBLEMS FROM EVENT Type 2 diabetes mellitus Surgical History H/O lithotripsy H/O lumpectomy RT X 2 History of arthroscopy RT KNEE History of bilateral tubal ligation History of breast biopsy History of cardiac cath ~2010 -NO STENTS AT [facility] WITH DR. REGALADO History of colonoscopy History of esophagogastroduodenoscopy (EGD) History of tooth extraction S/P appendectomy Family History Grandmother Family history of diabetes mellitus Father Family history of diabetes mellitus Lung cancer Lung disease Diabetes Mother MDP (myeloproliferative disorder) Family history of diabetes mellitus Glaucoma Hypertension Gall bladder disease Diabetes Unknown Leukemia Myocardial infarction Grandmother (Maternal) Diabetes Other No family history of adverse response to anesthesia Social History Smoking Status: Never smoker Second Hand Exposure: Yes (as a child); Hx Alcohol Use: No Hx Substance Use: No Preferred Language: Icelandic Communication Ability: Effective Wholesale Buyer Required: No Beliefs That Will Affect Care: None marital status: marital status details: No children Current Living Situation: Spouse current occupational status: retired 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 [employer] Feels Safe at Home: Yes Assistive Devices: None Review of Systems A total of 10 systems reviewed and were otherwise negative Physical Exam Vital Signs Vital Signs - 24 hr 10/31/22 20:47 10/31/22 22:15 10/31/22 22:17 Temperature 36.5 C Temperature Source Temporal Artery Scan Pulse Rate 93 H 74 84 Pulse Rhythm Regular Respiratory Rate 20 18 Respiratory Effort / Characteristics Non-Labored Spontaneous Respiratory Depth Normal Blood Pressure 161/80 H 139/79 Blood Pressure Mean 107 99 Pulse Oximetry 95 93 Oxygen Delivery Method Room Air Room Air Sepsis Recent Fever Within 48 Hours No Sepsis New/Unexplained Change in Mental Status N/A Sepsis Action Taken by Nursing No Action Required 10/31/22 22:18 10/31/22 22:50 Temperature Temperature Source Pulse Rate 78 Pulse Rhythm Respiratory Rate Respiratory Effort / Characteristics Respiratory Depth Blood Pressure Blood Pressure Mean Pulse Oximetry 93 Oxygen Delivery Method Room Air Sepsis Recent Fever Within 48 Hours Sepsis New/Unexplained Change in Mental Status Sepsis Action Taken by Nursing VITALS: Vitals are noted on the nurse's note and reviewed by myself. Vital signs stable. GENERAL: Pleasant female with partner present, in no acute distress, nondiaphoretic, well-developed well-nourished. SKIN: The skin was without rashes, erythema, edema, or bruising. There is no tenting of the skin. Capillary reflex less than 2 seconds. HEAD: Normocephalic atraumatic. EARS: External auditory canals clear, EYES: Pupils equal round and reactive to light and accommodation. Conjunctivae without injection, sclerae without icterus. Extraocular movements intact. NOSE: Patent, turbinates without inflammation or discharge. MOUTH: Mucous membranes moist. Pharynx without erythema or exudate. Uvula midline. Airway patent. Tongue does not deviate. NECK: Supple without nuchal rigidity. No lymphadenopathy. No thyromegaly. Cervical spine is nontender. No JVD. HEART: Regular rate and rhythm LUNGS: Clear to auscultation bilaterally without wheezes, rales or rhonchi. No retractions or accessory muscle use. ABDOMEN: Positive bowel sounds x 4. Normal tympanic percussion. Soft, nontender, without masses or organomegaly. Reynolds sign negative. No guarding or rebound tenderness. No CVA tenderness MUSCULOSKELETAL: No muscle atrophy, erythema, or edema noted. NEURO: Patient was alert and oriented to person place and time. Normal sensation to light and sharp touch. No focal neurological deficits. Medical Decision Making Medical Records Attestation: I reviewed the patient's medical records. Home Medications Current Medication List: was personally reviewed by me Laboratory Data Attestation: I reviewed the patient's lab results. 10/31/22 21:00 10/31/22 21:00 Lab Results 10/31/22 10/31/22 10/31/22 Range/Units 21:00 21:00 21:00 WBC 17.72 H (4.8-10.8) K/ul RBC 5.65 H (4.20-5.40) M/uL Hgb 13.1 (12.0-16.0) g/dl Hct 41.5 (37.0-47.0) % MCV 73.5 L (80.0-100.0) fL MCH 23.2 L (25.0-34.0) pg MCHC 31.6 L (32.0-36.0) g/dL RDW Std Deviation 55.6 H (36.4-46.3) fL RDW Coeff of Guevara 22.6 H (11.5-14.5) % Plt Count 392 (130-400) K/uL MPV 11.0 (9.4-12.4) fL Immature Gran % (Auto) 2.3 % Neut % (Auto) 84.3 % Lymph % (Auto) 10.1 % Buchanan % (Auto) 2.4 % Eos % (Auto) 0.4 % Baso % (Auto) 0.5 % Neut # (Auto) 14.95 H (1.40-6.50) K/uL Lymph # (Auto) 1.79 (1.2-3.4) K/uL Buchanan # (Auto) 0.42 (0.11-0.59) K/uL Eos # (Auto) 0.07 (0-0.50) K/uL Baso # (Auto) 0.09 (0-0.2) K/uL Immature Gran # (Auto) 0.40 H (0.01-0.20) K/uL Polychromasia 1+ Anisocytosis Present Echinocytes 1+ PT 10.6 (9.0-12.0) Seconds INR 1.0 (0.9-1.1) APTT 26.6 (21.0-31.0) Seconds PTT Ratio 1.0 Sodium 138 (136-145) mmol/L Potassium 4.7 (3.5-5.1) mmol/L Chloride 102 (98-107) mmol/L Carbon Dioxide 26 (21-32) mmol/L Anion Gap 10 (3-11) BUN 34 H (6-23) mg/dl Creatinine 1.14 (0.6-1.2) mg/dl Est Cr Clr Drug Dosing 53.7 ml/min Est GFR ( Amer) 53.7 ml/min Est GFR (Non-Af Amer) 46.3 ml/min BUN/Creatinine Ratio 29.8 H (10-20) Glucose 273 H (70-99(Fasting)) mg/dl Calcium 10.6 H (8.6-10.3) mg/dl Total Bilirubin 0.4 (0.2-1.0) mg/dl AST 17 (13-39) U/L ALT 23 (7-52) U/L Alkaline Phosphatase 55 (34-104) U/L Troponin I High Sens 8.3 (0-14) pg/ml B-Natriuretic Peptide (0-100) pg/ml Total Protein 8.0 (6.0-8.3) gm/dl Albumin 4.1 (3.4-5.0) gm/dl Globulin 3.9 (2.5-4.0) gm/dl Albumin/Globulin Ratio 1.1 (0.9-2) SARS-CoV-2, RNA, NAAT (NEGATIVE) 10/31/22 11/01/22 11/01/22 Range/Units 23:00 00:30 Unknown WBC (4.8-10.8) K/ul RBC (4.20-5.40) M/uL Hgb (12.0-16.0) g/dl Hct (37.0-47.0) % MCV (80.0-100.0) fL MCH (25.0-34.0) pg MCHC (32.0-36.0) g/dL RDW Std Deviation (36.4-46.3) fL RDW Coeff of Guevara (11.5-14.5) % Plt Count (130-400) K/uL MPV (9.4-12.4) fL Immature Gran % (Auto) % Neut % (Auto) % Lymph % (Auto) % Buchanan % (Auto) % Eos % (Auto) % Baso % (Auto) % Neut # (Auto) (1.40-6.50) K/uL Lymph # (Auto) (1.2-3.4) K/uL Buchanan # (Auto) (0.11-0.59) K/uL Eos # (Auto) (0-0.50) K/uL Baso # (Auto) (0-0.2) K/uL Immature Gran # (Auto) (0.01-0.20) K/uL Polychromasia Anisocytosis Echinocytes PT (9.0-12.0) Seconds INR (0.9-1.1) APTT (21.0-31.0) Seconds PTT Ratio Sodium (136-145) mmol/L Potassium (3.5-5.1) mmol/L Chloride (98-107) mmol/L Carbon Dioxide (21-32) mmol/L Anion Gap (3-11) BUN (6-23) mg/dl Creatinine (0.6-1.2) mg/dl Est Cr Clr Drug Dosing ml/min Est GFR ( Amer) ml/min Est GFR (Non-Af Amer) ml/min BUN/Creatinine Ratio (10-20) Glucose (70-99(Fasting)) mg/dl Calcium (8.6-10.3) mg/dl Total Bilirubin (0.2-1.0) mg/dl AST (13-39) U/L ALT (7-52) U/L Alkaline Phosphatase (34-104) U/L Troponin I High Sens 12.3 D (0-14) pg/ml B-Natriuretic Peptide 60 (0-100) pg/ml Total Protein (6.0-8.3) gm/dl Albumin (3.4-5.0) gm/dl Globulin (2.5-4.0) gm/dl Albumin/Globulin Ratio (0.9-2) SARS-CoV-2, RNA, NAAT NEGATIVE (NEGATIVE) Imaging Data Attestation: I personally reviewed and interpreted this imaging study as follows: Radiologist's Impression: Chest X-Ray 10/31/22 20:52 SINGLE VIEW CHEST CLINICAL HISTORY: Atypical chest pain. FINDINGS: An AP, portable, upright chest radiograph is compared to study dated 01/14/2022 and correlated with chest CT dated 11/13/2021. The heart is top normal for projection noting atherosclerotic calcification of the thoracic aorta. There is mild elevation of the right hemidiaphragm with bibasilar scarring/atelectasis. Chronic interstitial thickening is similar to previous. No airspace consolidation or large pleural effusion is identified. No pneumothorax is seen. The skeletal structures are osteopenic. The bony thorax is grossly intact. Degenerative change is noted in the thoracic spine. IMPRESSION: No acute cardiopulmonary abnormality. ACT 112: Negative or not required by law. Electronically signed by: Mateusz Moss M.D. 10/31/2022 10:[address] 10/31/22 22:41 Exam(s): CT CHEST Without Contrast EXAM: CT Chest Without Intravenous Contrast CLINICAL HISTORY: Reason for exam: sob, night sweats. TECHNIQUE: Axial computed tomography images of the chest without intravenous contrast. Automated exposure control was utilized for the study. A dose lowering technique was utilized adhering to the principles of ALARA. COMPARISON: Dated 05/13/17 FINDINGS: Lungs: Unremarkable. No mass. No consolidation. Pleural space: Unremarkable. No pneumothorax. No significant effusion. Heart: Coronary vascular calcifications. No significant pericardial effusion. Mediastinum: Calcified subcarinal lymph nodes suggesting prior granulomatous disease. Bones/joints: Degenerative changes of the thoracolumbar spine. No acute fracture. No dislocation. Soft tissues: Progression of dense calcifications in the right breast. Correlation with patient's mammography is recommended. Vasculature: See above. Lymph nodes: See above. Spleen: Partial visualization of multiple splenic granulomas. IMPRESSION: 1. No acute pathology in the thorax. 2. Dense calcifications in the right breast which has progressed since a 2017 comparison study. Please correlate with patient's prior mammography. Electronically signed by: Pop Diallo MD 11/01/22 01:41 AM [facility] Narrative Prior records/ancillary studies reviewed. Triage Nursing notes reviewed. Additional history obtained from the family. The patient's history was concerning for respiratory difficulties. Differential diagnosis: Etiologies such as infections, reactive airway disease, pneumonia, pneumothorax, COPD, CHF, cardiac ischemia, pulmonary embolism, musculoskeletal, gastrointestinal, as well as others were entertained. Physical examination: As above. ER treatment provided: An order was placed for continuous cardiac monitoring. The monitor shows a rate of 60-1 50 with a sinus rhythm per my interpretation. Toradol was ordered for pain On reassessment the patient felt better. Diagnostic interpretation by me: The electrocardiogram was ordered for SOB. ECG: Normal sinus, left axis, Q waves in the anterior leads, rate of 84. Impression normal sinus rhythm left axis deviation independent interpreted by myself I think arrhythmia is unlikely. EKG shows normal sinus rhythm with no interval abnormalities such as QT prolongation or WPW. There are no findings to suggest Brugada syndrome. Cardiac monitoring in the emergency department reveals no tachycardic or bradycardic dysrhythmia. Hypertrophic cardiomyopathy was considered but there are no clear historical elements pointing toward this. EKG is not suggestive. The QRS voltage is not extremely large The labs Independently Interpreted by myself revealed leukocytosis, negative troponin. Imaging studies: Chest x-ray with no acute consolidation, pneumothorax or free air per my independent interpretation Chest CT with no pneumonia or free air per my independent interpretation. Radiology read the report as above and this was reviewed HEART SCORE: Hx: high/mod/low suspicion: 1 ECG: ST depression/nonspecific changes/normal: 0 Age: Greater than 65/45-64/less than 45: 2 Risk factors: (Hypertension, hyperlipidemia, diabetes, coronary disease, tobacco use, cocaine use): 2 Troponin: Greater than 2 times normal limits/1-2 times normal limits/normal: 0 Total: 5 Consultation: A consultation was placed with the hospitalist. The case was discussed and diagnostics were reviewed. The patient was evaluated in the ER for further treatment. This appears to be consistent with chest pain and dyspnea. Patient still feeling short of breath with exertion. She would like to stay for further ev aluation and work-up. Labs and diagnostics and interpreted myself. Heart score is moderate. CT with no pneumonia. Medicine is consulted and the case was discussed. She will be admitted to the medical team for further evaluation and work-up.. By the evaluation outlined above emergent etiologies such as CHF, pulmonary embolism, reactive airway disease, pneumonia, pneumothorax, musculoskeletal, serious bacterial infections, as well as others were deemed relatively unlikely. The pt informed about the findings as listed above. All questions were answered and pleased with the treatment. The chart was completed utilizing [employer] Speech voice recognition software. Grammatical errors, random word insertions, pronoun errors, and incomplete sentences are an occassional consequence of this system due to software limitations, ambient noise, and hardware issues. Any formal questions or concerns about the content, text, or information contained within the body of this dictation should be directly addressed to the physician entry level assistant manager for clarification. Impression & Plan Chest pain, Acute dyspnea Discharge Plan Visit Data Chief Complaint: Shortness of Breath/Dyspnea Stated Complaint: IRREGULAR HEART BEAT, OXYGEN AT 88, SOB ED Provider: David Rodríguez ED Midlevel Provider: Sheyla Diallo Discharge Problem: Chest pain, Acute dyspnea Patient Disposition: Admitted As Inpatient Condition: Fair Forms Stand Alone Forms: [facility] [place] Prescriptions Prescriptions: No Action (DME) lancets [OneTouch Delica Lancets] 30 gauge misc See Rx Instructions .ROUTE .MEDSUPPLY Qty: 100 5RF Rx Instructions: As directed to test sugar 3 to 4 times daily losartan 50 mg tablet 50 mg PO BID Qty: 180 3RF Novolin 70/30 U-100 Insulin 100 unit/mL (70-30) suspension 100 unit SUBCUT BID 30 Days Qty: 60 11RF (DME) blood sugar diagnostic Strip See Rx Instructions .ROUTE .MEDSUPPLY Qty: 200 5RF Rx Instructions: Test blood sugar up to 6 times daily for insulin monitoring pantoprazole 40 mg tablet,delayed release (DR/EC) 40 mg PO BID Qty: 180 3RF carvedilol 6.25 mg tablet 6.25 mg PO BID Qty: 180 3RF Rx Instructions: must administer with a meal/food (DME) insulin syringe-needle U-100 [BD Insulin Syringe Ultra-Fine] 1 mL 31 gauge x 5/16 syringe See Rx Instructions .Route Qty: 200 3RF Rx Instructions: use to inject insulin twice daily aspirin [Adult Aspirin Regimen] 81 mg tablet,delayed release (DR/EC) 81 mg PO HS metformin 500 mg tablet extended release 24 hr 500 mg PO BID Qty: 180 3RF nystatin 100,000 unit/mL suspension 500,000 unit PO TID 7 Days Qty: 105 0RF Rx Instructions: swish and swallow allopurinol 100 mg tablet 100 mg PO DAILY Patient Comments: QAM celecoxib [Celebrex] 200 mg capsule 200 mg PO QPM amlodipine [Norvasc] 10 mg tablet 10 mg PO QPM diclofenac sodium [Voltaren Arthritis Pain] 1 % gel 2 g topical QID PRN (Reason: Pain) Patient Comments: 1% prednisone 5 mg tablet 10 mg PO DAILY Referrals Referrals: Lucila Rojas MD [Primary Care Provider] - Chest pain Qualifiers: Chest pain type: unspecified Qualified Code(s): R07.9 - Chest pain, unspecified
--- NOTE | 2022-11-01 01:43 | CT Scan Report ---
Exam(s): CT CHEST Without Contrast EXAM: CT Chest Without Intravenous Contrast CLINICAL HISTORY: Reason for exam: sob, night sweats. TECHNIQUE: Axial computed tomography images of the chest without intravenous contrast. Automated exposure control was utilized for the study. A dose lowering technique was utilized adhering to the principles of ALARA. COMPARISON: Dated 05/13/17 FINDINGS: Lungs: Unremarkable. No mass. No consolidation. Pleural space: Unremarkable. No pneumothorax. No significant effusion. Heart: Coronary vascular calcifications. No significant pericardial effusion. Mediastinum: Calcified subcarinal lymph nodes suggesting prior granulomatous disease. Bones/joints: Degenerative changes of the thoracolumbar spine. No acute fracture. No dislocation. Soft tissues: Progression of dense calcifications in the right breast. Correlation with patient's mammography is recommended. Vasculature: See above. Lymph nodes: See above. Spleen: Partial visualization of multiple splenic granulomas. IMPRESSION: 1. No acute pathology in the thorax. 2. Dense calcifications in the right breast which has progressed since a 2017 comparison study. Please correlate with patient's prior mammography. Electronically signed by: Pop Diallo MD 11/01/22 01:41 AM
--- NOTE | 2022-11-01 04:25 | History & Physical Report ---
Date of Service November 01, 2022 Assessment & Plan (1) JETT (dyspnea on exertion): Plan: Patient is a 77-year-old female with a past medical history of restrictive lung disease secondary to obesity, diastolic heart failure, hypertension, polymyalgia rheumatica, GERD, history of breast cancer, type 2 diabetes, and fibromyalgia who presented to the ED for the chief complaint of worsening dyspnea. Patient has been admitted to [facility] with telemetry and is currently hemodynamically stable. -Admit to [facility] with telemetry due to low risk chest pain -Chest x-ray and CT were grossly normal without any acute cardiopulmonary process -Suspect dyspnea is related to longstanding restrictive lung disease secondary to obesity, obstructive sleep apnea and possibly some diastolic heart failure as well -Patient is not CPAP compliant -Patient follows with Dr. Santiago (pulmonology) in the outpatient setting -Incentive spirometry every hour while awake -Echocardiogram in the morning -No vascular congestion noted on chest x-ray, will hold off any Lasix orders for now (2) Atypical chest pain: Plan: - Given dobutamine stress test last year, find it unlikely to be cardiogenic in nature -Troponin x2 negative in ED, no longer trending -Patient has a history of GERD for which she must take Protonix 40 mg twice daily, so suspect this is the likely culprit -Patient wishes to speak to a calker, so we will place this consult for now -Echocardiogram as above -EKG with chest pain (3) Diastolic heart failure: Plan: - Continue carvedilol -Continue losartan (4) HTN (hypertension): Plan: - Continue amlodipine, losartan, carvedilol (5) PMR (polymyalgia rheumatica): Plan: - Continue daily prednisone (6) Sleep apnea: Plan: - Noncompliant with CPAP -May benefit from supplemental oxygen at night (7) Type 2 diabetes mellitus: Plan: - Converted to basal bolus with sliding scale -Last A1c in July was 7.5 (8) Restrictive lung disease secondary to obesity: Plan: -As above, recommend weight loss -May benefit from nutritional consult while in observation Plan Disposition: Admit to [facility] with telemetry due to low risk chest pain Diet: DM 2, heart healthy DVT prophylaxis: Heparin CODE STATUS: Full code History of Present Illness Chief Complaint: SOB Primary Care Provider: Lucila Rojas MD Patient is a 77-year-old female with a past medical history of restrictive lung disease secondary to obesity, diastolic heart failure, hypertension, polymyalgia rheumatica, GERD, history of breast cancer, type 2 diabetes, and fibromyalgia who presented to the ED for the chief complaint of worsening dyspnea. Patient reports for the past couple of weeks she has noticed worsening dyspnea on exertion and occasionally feels chest pain as well. She has used her pulse ox at home several times and has had numbers that are consistent with hypoxia including a measurement of 88% today while sitting in a chair and a measurement of 74% after waking up in bed earlier in the week. She does have a history of obstructive sleep apnea, however, she does not tolerate a CPAP. She sees Dr. Santiago for her pulmonology needs and has had pulmonary function testing that confirms restrictive lung disease in June 2022. Patient has not noticed any swelling or weight gain in the past couple of weeks. Patient states that she would like to see a calker in regards to her shortness of breath. Seems to believe that this may be cardiac related as she has been having episodes of chest pain but her chest pain is not always with activity and may occur at rest as well. Patient has a history of GERD and takes Protonix. Of note, patient had a dobutamine stress test in October 2021 that was completely normal. Otherwise no other complaints at this time. Allergies Allergy/AdvReac Type Severity Reaction Status Date / Time Bactrim Allergy Intermediate hives Verified 03/15/18 10:08 ciprofloxacin Allergy Unknown hives Verified 09/15/22 09:28 Iodinated Contrast Media Allergy Unknown ANAPHYLAXIS Verified 09/15/22 09:28 /CONVULSION S metronidazole Allergy Unknown HIVES Verified 09/15/22 09:28 sulfamethoxazole Allergy Unknown hives Verified 09/15/22 09:28 sumatriptan Allergy Unknown SOB,INCREASED Verified 09/15/22 09:28 HEARTRATE trimethoprim Allergy Unknown hives Verified 09/15/22 09:28 adhesive AdvReac Unknown SEVERE Verified 09/15/22 09:28 BURNING BLISTERS fluconazole AdvReac Unknown hyperkalemi Verified 09/15/22 09:28 a tramadol AdvReac Unknown FATIGUE Verified 09/15/22 09:28 Home Medications Medication Instructions Recorded Confirmed Type lancets 30 gauge (Powered Outcomesuch [place] #100 ea 08/25/19 11/01/22 Rx Lancets) aspirin 81 mg tablet,delayed 81 mg PO HS 02/27/20 11/01/22 History release (Adult Aspirin Regimen) allopurinol 100 mg tablet 100 mg PO DAILY 10/12/21 11/01/22 History losartan 50 mg tablet 50 mg PO BID #180 tabs 05/12/22 11/01/22 Rx metformin 500 mg tablet,extended 500 mg PO BID #180 tabs 05/13/22 11/01/22 Rx release 24 hr blood sugar diagnostic #200 ea 08/22/22 11/01/22 Rx insulin human U-100 NPH-regulr 100 unit subcut BID 30 days #60 mL 08/22/22 11/01/22 Rx 70-30 mix 100 unit/mL subcutaneous susp (Novolin 70/30 U-100 Insulin) amlodipine 10 mg tablet (Norvasc) 10 mg PO QPM 09/09/22 11/01/22 History celecoxib 200 mg capsule (Celebrex) 200 mg PO QPM 09/09/22 11/01/22 History diclofenac sodium 1 % topical gel 2 g topical QID PRN Pain 09/09/22 11/01/22 History (Voltaren Arthritis Pain) pantoprazole 40 mg tablet,delayed 40 mg PO BID #180 tabs 09/11/22 11/01/22 Rx release carvedilol 6.25 mg tablet 6.25 mg PO BID #180 tabs 10/13/22 11/01/22 Rx insulin syringe-needle U-100 1 mL #200 ea 10/13/22 11/01/22 Rx 31 gauge x 5/16" (BD Insulin Syringe Ultra-Fine) nystatin 100,000 unit/mL oral 500,000 unit (5 mL) PO TID 7 days 10/29/22 11/01/22 Rx suspension #105 mL chlorthalidone 25 mg tablet 25 mg PO QAM #30 tabs 11/01/22 Rx prednisone 5 mg tablet 10 mg PO DAILY 11/01/22 11/01/22 History Past Med/Surg History Medical History Bilateral tinnitus Chronic diastolic CHF (congestive heart failure) type 1 diastolic dysfunction on echo Difficult intravenous access difficult iv access left arm Difficulty swallowing reason for upcoming procedure Diverticulosis surgical intervention recommended / not yet scheduled Fibromyalgia GERD (gastroesophageal reflux disease) GIB (gastrointestinal bleeding) ulcerated hemangioma resected 2019 History of breast cancer RT x2 dx 2001 & 2010 (SURGERY WITH RADIATION) History of colon polyps History of kidney stones HTN (hypertension) Incisional breast wound right / reason for current abx / under care of general surgeon and pcp Iron deficiency anemia Osteoarthritis Overactive bladder PMR (polymyalgia rheumatica) Pulmonary nodules Sleep apnea NO DEVICE "MILD" SNHL (sensorineural hearing loss) Spinal stenosis Statin myopathy Subclinical hypothyroidism Transient ischemic attack (TIA) x 4 (2014, 2015, 2019, 2021) NO CURRENT PROBLEMS FROM EVENT Type 2 diabetes mellitus Surgical History H/O lithotripsy H/O lumpectomy RT X 2 History of arthroscopy RT KNEE History of bilateral tubal ligation History of breast biopsy History of cardiac cath ~2009 -NO STENTS AT [facility] WITH DR. REGALADO History of colonoscopy History of esophagogastroduodenoscopy (EGD) History of tooth extraction S/P appendectomy Family History Grandmother Family history of diabetes mellitus Father Family history of diabetes mellitus Lung cancer Lung disease Diabetes Mother MDP (myeloproliferative disorder) Family history of diabetes mellitus Glaucoma Hypertension Gall bladder disease Diabetes Unknown Leukemia Myocardial infarction Grandmother (Maternal) Diabetes Other No family history of adverse response to anesthesia Social History Smoking Status: Never smoker Second Hand Exposure: Yes (as a child); Hx Alcohol Use: No Hx Substance Use: No Preferred Language: Turkish Communication Ability: Effective Pulp Screen Operator Required: No Beliefs That Will Affect Care: None marital status: marital status details: No children Current Living Situation: Spouse current occupational status: retired 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 Feels Safe at Home: Yes Assistive Devices: Cane and Walker Review of Systems Review of Systems: All systems reviewed & are unremarkable except as noted in HPI & below Physical Exam Constitutional: WD/WN, vitals as above + morbidly obese and cooperative Eyes: + anicteric sclerae Neck: trachea midline and + thick neck Respiratory: normal respiratory effort; no respiratory distress Shallow breathing Cardiovascular: Rate/Rhythm: regular rate and regular rhythm Heart Sounds: no murmur Extremities: + edema (1+ LE b/l) Gastrointestinal (Abdomen): normal bowel sounds, soft, nontender, no hepatosplenomegaly Musculoskeletal: Head/Neck/Chest: normocephalic and head atraumatic Skin: no rashes, warm and dry Neurologic: moves all extremities Psychiatric: A+Ox3, euthymic affect Results & Data Results & Data Vital Signs (Past 12 Hours) Vital Signs Temp Pulse Resp BP Pulse Ox O2 Del Method 10/31/22 22:50 78 10/31/22 22:18 93 Room Air 10/31/22 22:17 84 18 139/79 10/31/22 22:15 74 93 Room Air 10/31/22 20:47 36.5 C 93 H 20 161/80 H 95 Room Air Code Status & VTE Plan VTE Prophylaxis Plan VTE Prophylaxis will be ordered: Yes Supervising Physician Co-Signing Physician Notes Attending addendum: I have physically seen this patient, have supervised the medical residents activities, and agree with the H&P unless as otherwise noted. Assessment and Plan: Atypical chest pain/dyspnea on exertion- The patient will be admitted to telemetry for serial cardiac enzymes, serial EKG's, cardiac rhythm monitoring and a 2-D echocardiogram with Dopplers. Differential including cardiac, GI associated with gastritis and GERD, interstitial lung disease/obstructive disease, noncompliance with CPAP for LYNDA Negative dobutamine stress echo last year Troponins negative x2 in the ED We will rule out cardiac issues first, however, symptoms some are more suggestive of pulmonary process Patient has been seen by pulmonology in the past, and will need to have follow- up if cardiac work-up is negative We will consult cardiology, as patient request to be seen by cardiology Hypertension/diastolic CHF- Continue amlodipine, aspirin, carvedilol, chlorthalidone and losartan GERD- Continue pantoprazole 40 mg twice daily Gastritis and GERD may be contributing to her overall symptoms, if persistent and no other cause determined, may need endoscopy PMR- Continue daily prednisone Does not appear to need stress dosing Diabetes mellitus- Holding 7030 and metformin Placed on Accu-Cheks with NovoLog SSI Remaining orders and notations as noted (6) Sleep apnea Sleep apnea type: obstructive Qualified Code(s): G47.33 - Obstructive sleep apnea (adult) (pediatric) (7) Type 2 diabetes mellitus Diabetes mellitus complication status: with hyperglycemia Diabetes mellitus skilled nursing insulin use: with roasterman use Qualified Code(s): E11.65 - Type 2 diabetes mellitus with hyperglycemia; 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
[2022-11-01] MEDS ORDERED: GLUCAGON FOR INJ 1 MG VIAL SQ PRN (06:54)
[2022-11-01] MEDS ORDERED: GLUCOSE 10 TAB/TUBE PO PRN (06:54)
[2022-11-01] MEDS ORDERED: CARBOHYDRATES FOR HYPOGLYCEMIA PO PRN (06:54)
[2022-11-01] MEDS ORDERED: ACETAMINOPHEN 325 MG TAB PO PRN (06:54)
[2022-11-01] MEDS ORDERED: GLUCOSE 40% GEL 15 GM TUBE PO PRN (06:54)
[2022-11-01] MEDS ORDERED: DEXTROSE 50% 50 ML SYRINGE IV PRN (06:54)
[2022-11-01] MEDS ORDERED: ONDANSETRON INJ 2 MG/ML 2 ML VIAL IV PRN (06:54)
--- NOTE | 2022-11-01 07:40 | Electrocardiogram Report ---
Test Reason : Blood Pressure : / mmHG Vent. Rate : 084 BPM Atrial Rate : 084 BPM P-R Int : 150 ms QRS Dur : 116 ms QT Int : 374 ms P-R-T Axes : 050 -32 004 degrees QTc Int : 441 ms Normal sinus rhythm Possible Left atrial enlargement Left axis deviation Left ventricular hypertrophy with QRS widening Incomplete right bundle branch block Abnormal ECG When compared with ECG of 14-JAN-2022 16:26, Vent. rate has increased BY 34 BPM T wave inversion now evident in Anterior leads QT has lengthened Confirmed by Javid Figueroa ([id number]) on 11/01/2022 7:39:54 AM Referred By: REFERRED SELF Confirmed By:Willian Figueroa
[2022-11-01] MEDS ORDERED: carvediloL 6.25 MG TAB PO SCH (08:00)
[2022-11-01] MEDS: INSULIN ASPART PER UNIT CHARGE SC SCH ×2 (08:07→12:20)
--- NOTE | 2022-11-01 08:52 | Cardiology Consultation ---
Date of Consultation November 01, 2022 Assessment & Plan (1) Dyspnea: (2) HTN (hypertension): Plan 1. Dyspnea: She has chronic dyspnea which by report was worse recently. The etiology of her dyspnea appears to be multifactorial and has been well described and evaluated in her medical record. While she has a history of stage I diastolic dysfunction, this is actually a normal finding in her demographic. He could have an element of diastolic heart failure at times, but her normal N terminal proBNP would suggest this is not the likely diagnosis of her symptoms currently. 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 I do not think she requires any additional cardiac evaluation in this regard. Controlling her blood pressure more aggressively and taking her diuretic more regularly would likely attenuate any cardiac symptoms. Lastly, re-initiation of Jardiance treatment would also have some benefits for any diastolic heart failure. This was discontinued previously due to cost issues. 2. Chest pain: Her chest pain is atypical, fleeting and nonexertional. She had a normal dobutamine echocardiogram 1 year ago. No believe she requires any additional evaluation for chest pain at this time. 3. Hypertension: She continues to have significantly elevated blood pressures. Her care has been compromised by medication intolerances and side effects. She does not like to take a diuretic often or add a regular dose due to significant incontinence. Spironolactone was previously administered with an admission for hyperkalemia. Carvedilol dose was recently reduced due to mild dizziness which resolved afterwards. I think her several options moving forward to include substitute chlorthalidone for her current furosemide. Hydralazine could be added. She could also be referred to the hypertension Clinic for both titration and monitoring of her blood pressure. 4. Coronary calcification: She is noted to have coronary calcification on her CT scan. While not quantified, this probably does represent today and independent risk factor for coronary disease. No evidence of obstructive disease based on her symptoms or prior dobutamine echocardiogram. Aggressive preventive measures would be recommended. However, she has a known intolerance to statin therapy characterized by worsening myalgias. Other therapies such as Zetia, bempedoic acid or PKS9 inhibitors could be considered. Prior LDL values appeared to be at goal. Repeat evaluation could be obtained as an inpatient or outpatient. Goal LDL would be around 70 given her risk factors. History of Present Illness Reason for Consultation: Shortness of breath, chest pain Requesting Physician: Dang Attending Physician: Forrest Hutchison MD History of Present Illness The patient is a 77-year-old woman without known cardiac disease who presented to the hospital due to worsening dyspnea, hypoxia and chest pains. The patient has a long history of breathing difficulty. She has been admitted on several occasions for shortness of breath. She is very sedentary at baseline due to her breathing difficulty and rheumatologic issues causing generalized pain. However, over the past week she states that she has had difficulty performing even limited exertion due to breathing difficulty. She is generally ambulatory around her residence and uses a cart when shopping. She did not describe orthopnea, but has been sleeping upright in a recliner for many years. She has occasional chest pains which are atypical, short lived and nonexertional. She did not endorse symptoms of chest discomfort with activity. She denies current dizziness or lightheadedness. She occasionally is aware of some palpitation described as a fast heartbeat lasting a 2nd or 2. She has noticed some swelling in her left ankle, but no other edema. The patient uses a pulse oximeter continuously when at rest. Recently she has noticed some lower oxygen saturations. She was concerned yesterday due to her dyspnea and an oxygen saturation of 88%. She denies any other recent changes in her health condition. As noted above she suffers from chronic pain and is currently taking prednisone for presumed polym yalgia rheumatica. She has some difficulty with swallowing recently evaluated with an EGD. No specific etiology was determined she denies recent fevers or rigors. She does report frequent chills which seemed to be a very transient sensation of being cold. No abdominal complaints currently. Some chronic low back discomfort. Allergies Allergy/AdvReac Type Severity Reaction Status Date / Time Bactrim Allergy Intermediate hives Verified 03/15/18 10:08 ciprofloxacin Allergy Unknown hives Verified 09/15/22 09:28 Iodinated Contrast Media Allergy Unknown ANAPHYLAXIS Verified 09/15/22 09:28 /CONVULSION S metronidazole Allergy Unknown HIVES Verified 09/15/22 09:28 sulfamethoxazole Allergy Unknown hives Verified 09/15/22 09:28 sumatriptan Allergy Unknown SOB,INCREASED Verified 09/15/22 09:28 HEARTRATE trimethoprim Allergy Unknown hives Verified 09/15/22 09:28 adhesive AdvReac Unknown SEVERE Verified 09/15/22 09:28 BURNING BLISTERS fluconazole AdvReac Unknown hyperkalemi Verified 09/15/22 09:28 a tramadol AdvReac Unknown FATIGUE Verified 09/15/22 09:28 Home Medications Medication Instructions Recorded Confirmed Type lancets 30 gauge (LokiTouch Delica #100 ea 08/25/19 11/01/22 Rx Lancets) aspirin 81 mg tablet,delayed 81 mg PO HS 02/27/20 11/01/22 History release (Adult Aspirin Regimen) allopurinol 100 mg tablet 100 mg PO DAILY 10/12/21 11/01/22 History losartan 50 mg tablet 50 mg PO BID #180 tabs 05/12/22 11/01/22 Rx metformin 500 mg tablet,extended 500 mg PO BID #180 tabs 05/13/22 11/01/22 Rx release 24 hr blood sugar diagnostic #200 ea 08/22/22 11/01/22 Rx insulin human U-100 NPH-regulr 100 unit subcut BID 30 days #60 mL 08/22/22 11/01/22 Rx 70-30 mix 100 unit/mL subcutaneous susp (Novolin 70/30 U-100 Insulin) amlodipine 10 mg tablet (Norvasc) 10 mg PO QPM 09/09/22 11/01/22 History celecoxib 200 mg capsule (Celebrex) 200 mg PO QPM 09/09/22 11/01/22 History diclofenac sodium 1 % topical gel 2 g topical QID PRN Pain 09/09/22 11/01/22 History (Voltaren Arthritis Pain) pantoprazole 40 mg tablet,delayed 40 mg PO BID #180 tabs 09/11/22 11/01/22 Rx release carvedilol 6.25 mg tablet 6.25 mg PO BID #180 tabs 10/13/22 11/01/22 Rx insulin syringe-needle U-100 1 mL #200 ea 10/13/22 11/01/22 Rx 31 gauge x 5/16" (BD Insulin Syringe Ultra-Fine) nystatin 100,000 unit/mL oral 500,000 unit (5 mL) PO TID 7 days 10/29/22 Rx suspension #105 mL prednisone 5 mg tablet 10 mg PO DAILY 11/01/22 11/01/22 History Patient History Medical History Bilateral tinnitus Chronic diastolic CHF (congestive heart failure) type 1 diastolic dysfunction on echo Difficult intravenous access difficult iv access left arm Difficulty swallowing reason for upcoming procedure Diverticulosis surgical intervention recommended / not yet scheduled Fibromyalgia GERD (gastroesophageal reflux disease) GIB (gastrointestinal bleeding) ulcerated hemangioma resected 2018 History of breast cancer RT x2 dx 2001 & 2010 (SURGERY WITH RADIATION) History of colon polyps History of kidney stones HTN (hypertension) Incisional breast wound right / reason for current abx / under care of general surgeon and pcp Iron deficiency anemia Osteoarthritis Overactive bladder PMR (polymyalgia rheumatica) Pulmonary nodules Sleep apnea NO DEVICE "MILD" SNHL (sensorineural hearing loss) Spinal stenosis Statin myopathy Subclinical hypothyroidism Transient ischemic attack (TIA) x 4 (2014, 2015, 2019, 2021) NO CURRENT PROBLEMS FROM EVENT Type 2 diabetes mellitus Surgical History H/O lithotripsy H/O lumpectomy RT X 2 History of arthroscopy RT KNEE History of bilateral tubal ligation History of breast biopsy History of cardiac cath ~2009 -NO STENTS AT [facility] WITH DR. REGALADO History of colonoscopy History of esophagogastroduodenoscopy (EGD) History of tooth extraction S/P appendectomy Family History Grandmother Family history of diabetes mellitus Father Family history of diabetes mellitus Lung cancer Lung disease Diabetes Mother MDP (myeloproliferative disorder) Family history of diabetes mellitus Glaucoma Hypertension Gall bladder disease Diabetes Unknown Leukemia Myocardial infarction Grandmother (Maternal) Diabetes Other No family history of adverse response to anesthesia Social History Smoking Status: Never smoker Second Hand Exposure: Yes (as a child); Hx Alcohol Use: No Hx Substance Use: No Preferred Language: Romansh Communication Ability: Effective 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 No dysuria. Physical Exam Physical Exam: She is alert and oriented x3. Mood affect appear normal. She answered all qu estions appropriately. Obese HEENT: Sclerae are anicteric. Pupils are equal and reactive to light and accommodation. Extraocular movements were intact. Neuro: Cranial nerves intact Neck: Redundant neck tissue. Lungs: Lungs are clear to auscultation bilaterally. There are no rales wheezes or rhonchi. She has normal respiratory effort without use of accessory muscles. There is normal pulmonary excursion. Cardiac: The rhythm was regular with frequent ectopy. S1 and S2 were normal. There are no murmurs on examination. The PMI was not markedly displaced on palpation. Abdomen: The abdomen was soft and nontender. Obese Extremities: Patient has bilateral radial pulses that are equal in intensity. There is no evidence cyanosis or clubbing. There was no evidence of significant peripheral edema bilaterally although the left ankle was slightly larger than the right. Skin: There are no rashes noted on examination today. Results & Data Vital Signs (Past 12 Hours) Vital Signs Temp Pulse Pulse Resp BP BP Pulse Ox 11/01/22 07:04 66 11/01/22 06:42 197/81 H 11/01/22 06:42 70 20 92 11/01/22 06:54 11/01/22 06:30 78 11/01/22 06:20 69 20 197/80 H 91 11/01/22 06:05 71 24 197/80 H 93 11/01/22 02:01 74 15 193/77 H 94 11/01/22 01:00 76 20 198/74 H 91 11/01/22 00:22 86 24 205/73 H 95 10/31/22 23:40 75 17 193/78 H 92 10/31/22 22:50 78 10/31/22 22:18 93 10/31/22 22:17 84 18 139/79 10/31/22 22:15 74 93 10/31/22 20:47 36.5 C 93 H 20 161/80 H 95 Pulse Ox O2 Del Method O2 Del Method 11/01/22 07:04 11/01/22 06:42 11/01/22 06:42 11/01/22 06:54 93 Room Air 11/01/22 06:30 11/01/22 06:20 Room Air 11/01/22 06:05 11/01/22 02:01 11/01/22 01:00 11/01/22 00:22 10/31/22 23:40 10/31/22 22:50 10/31/22 22:18 Room Air 10/31/22 22:17 10/31/22 22:15 Room Air 10/31/22 20:47 Room Air Laboratory Results Abnormal Lab Results 10/31/22 10/31/22 10/31/22 21:00 21:00 21:00 WBC 17.72 H RBC 5.65 H Hgb 13.1 Hct 41.5 MCV 73.5 L MCH 23.2 L MCHC 31.6 L RDW Std Deviation 55.6 H RDW Coeff of Guevara 22.6 H Plt Count 392 MPV 11.0 Immature Gran % (Auto) 2.3 Neut % (Auto) 84.3 Lymph % (Auto) 10.1 [place] % (Auto) 2.4 Eos % (Auto) 0.4 Baso % (Auto) 0.5 Neut # (Auto) 14.95 H Lymph # (Auto) 1.79 [place] # (Auto) 0.42 Eos # (Auto) 0.07 Baso # (Auto) 0.09 Immature Gran # (Auto) 0.40 H Polychromasia 1+ Anisocytosis Present Echinocytes 1+ PT 10.6 INR 1.0 APTT 26.6 PTT Ratio 1.0 Sodium 138 Potassium 4.7 Chloride 102 Carbon Dioxide 26 Anion Gap 10 BUN 34 H Creatinine 1.14 Est Cr Clr Drug Dosing 53.7 Est GFR ( Amer) 53.7 Est GFR (Non-Af Amer) 46.3 BUN/Creatinine Ratio 29.8 H Glucose 273 H POC Glucose Calcium 10.6 H Total Bilirubin 0.4 AST 17 ALT 23 Alkaline Phosphatase 55 Troponin I High Sens 8.3 B-Natriuretic Peptide Total Protein 8.0 Albumin 4.1 Globulin 3.9 Albumin/Globulin Ratio 1.1 SARS-CoV-2, RNA, NAAT 10/31/22 11/01/22 11/01/22 23:00 00:30 07:50 WBC RBC Hgb Hct MCV MCH MCHC RDW Std Deviation RDW Coeff of Guevara Plt Count MPV Immature Gran % (Auto) Neut % (Auto) Lymph % (Auto) [place] % (Auto) Eos % (Auto) Baso % (Auto) Neut # (Auto) Lymph # (Auto) [place] # (Auto) Eos # (Auto) Baso # (Auto) Immature Gran # (Auto) Polychromasia Anisocytosis Echinocytes PT INR APTT PTT Ratio Sodium Potassium Chloride Carbon Dioxide Anion Gap BUN Creatinine Est Cr Clr Drug Dosing Est GFR ( Amer) Est GFR (Non-Af Amer) BUN/Creatinine Ratio Glucose POC Glucose 138 H Calcium Total Bilirubin AST ALT Alkaline Phosphatase Troponin I High Sens 12.3 D B-Natriuretic Peptide 60 Total Protein Albumin Globulin Albumin/Globulin Ratio SARS-CoV-2, RNA, NAAT 11/01/22 Unknown WBC RBC Hgb Hct MCV MCH MCHC RDW Std Deviation RDW Coeff of Guevara Plt Count MPV Immature Gran % (Auto) Neut % (Auto) Lymph % (Auto) [place] % (Auto) Eos % (Auto) Baso % (Auto) Neut # (Auto) Lymph # (Auto) [place] # (Auto) Eos # (Auto) Baso # (Auto) Immature Gran # (Auto) Polychromasia Anisocytosis Echinocytes PT INR APTT PTT Ratio Sodium Potassium Chloride Carbon Dioxide Anion Gap BUN Creatinine Est Cr Clr Drug Dosing Est GFR ( Amer) Est GFR (Non-Af Amer) BUN/Creatinine Ratio Glucose POC Glucose Calcium Total Bilirubin AST ALT Alkaline Phosphatase Troponin I High Sens B-Natriuretic Peptide Total Protein Albumin Globulin Albumin/Globulin Ratio SARS-CoV-2, RNA, NAAT NEGATIVE Diagnostic Findings Echocardiogram performed today revealed preserved LV systolic function with stage I diastolic dysfunction. No significant valvular heart disease. Dobutamine echocardiogram 11/14/2021: No evidence of inducible ischemia. Normal LV systolic function. Mild LVH. No significant valvular heart disease. Mild pulmonary hypertension. Echocardiogram 05/04/2021: Normal LV systolic function with moderate LVH. Mild left atrial dilation. Stage I diastolic dysfunction. No significant valvular heart disease Event monitor dated 01/26/2020: Frequent PACs. Otherwise unremarkable Echocardiogram dated in 01/29/2019: Mild LVH. States normal LV systolic function with stage I diastolic dysfunction. Mild left atrial dilation. Transesophageal echocardiogram dated 01/31/2019: No evidence of aortic dissection. Echocardiogram dated 04/26/2020: Normal LV systolic function with stage I diastolic dysfunction. Mild LVH. Moderate left atrial dilation. Aortic valve sclerosis. ECG Additional Comments: EKG obtained at the time of admission revealed normal sinus rhythm with incomplete right bundle branch block. Voltage criteria for left ventricular hypertrophy PG Care Time/CCT Total # of Minutes Spent Total Time Spent with Patient: Total time spent is greater than 50% in coordination of care (as documented) at patient's floor/unit and/or counseling patient: Coding Level of Care Code 91572 INT INP/OBS CARE 375MIN Diagnoses Dyspnea R06.00 HTN (hypertension) I10
[2022-11-01] MEDS ORDERED: predniSONE 10 MG TABLET PO SCH (09:00)
[2022-11-01] MEDS ORDERED: PANTOprazole 40 MG TAB PO SCH (09:00)
[2022-11-01] MEDS ORDERED: LANTUS PER UNIT CHARGE SQ SCH (09:00)
[2022-11-01] MEDS ORDERED: LOSARTAN POTASSIUM 50 MG TAB PO SCH (09:00)
[2022-11-01] MEDS ORDERED: allopurinoL 100 MG TAB PO SCH (09:00)
--- NOTE | 2022-11-01 10:00 | XCELERA ---
[id number]
[2022-11-01] MEDS: HEPARIN SOD 5,000 UNIT/0.5 ML VIAL SQ SCH ×2 (10:18→14:09)
[2022-11-01] MEDS: NYSTATIN SUSP 500,000 U/5 ML UDC PO SCH ×2 (11:19→16:02)
[2022-11-01] MEDS ORDERED: CHLORTHALIDONE 25 MG TAB PO SCH (12:45)
--- NOTE | 2022-11-01 13:12 | Discharge Summary ---
Date of Service November 01, 2022 Admission HPI Per Admitting Provider Patient is a 77-year-old female with a past medical history of restrictive lung disease secondary to obesity, diastolic heart failure, hypertension, polymyalgia rheumatica, GERD, history of breast cancer, type 2 diabetes, and fibromyalgia who presented to the ED for the chief complaint of worsening dyspnea. Patient reports for the past couple of weeks she has noticed worsening dyspnea on exertion and occasionally feels chest pain as well. She has used her pulse ox at home several times and has had numbers that are consistent with hypoxia including a measurement of 88% today while sitting in a chair and a measurement of 74% after waking up in bed earlier in the week. She does have a history of obstructive sleep apnea, however, she does not tolerate a CPAP. She sees Dr. Santiago for her pulmonology needs and has had pulmonary function testing that confirms restrictive lung disease in June 2022. Patient has not noticed any swelling or weight gain in the past couple of weeks. Patient states that she wo uld like to see a supervisor smoke control in regards to her shortness of breath. Seems to believe that this may be cardiac related as she has been having episodes of chest pain but her chest pain is not always with activity and may occur at rest as well. Patient has a history of GERD and takes Protonix. Of note, patient had a dobutamine stress test in October 2021 that was completely normal. Otherwise no other complaints at this time. Admission Exam Per Admitting Provider Constitutional: WD/WN, vitals as above + morbidly obese and cooperative Eyes: + anicteric sclerae Neck: trachea midline and + thick neck Respiratory: normal respiratory effort; no respiratory distress Shallow breathing Cardiovascular: Rate/Rhythm: regular rate and regular rhythm Heart Sounds: no murmur Extremities: + edema (1+ LE b/l) Gastrointestinal (Abdomen): normal bowel sounds, soft, nontender, no hepatosplenomegaly Musculoskeletal: Head/Neck/Chest: normocephalic and head atraumatic Skin: no rashes, warm and dry Neurologic: moves all extremities Psychiatric: A+Ox3, euthymic affect Principal Diagnosis HTN Dyspnea Discharge Exam Constitutional + morbidly obese, cooperative and comfortable; no acute distress Neck trachea midline, no thyromegaly Respiratory normal respiratory effort, lungs clear to auscultation Cardiovascular Rate/Rhythm: regular rate and regular rhythm Heart Sounds: normal S1 and normal S2; no murmur Extremities: normal capillary refill and + edema; no calf tenderness Gastrointestinal (Abdomen) normal bowel sounds, soft, nontender, no hepatosplenomegaly Psychiatric A+Ox3, euthymic affect Discharge Data Allergies Allergy/AdvReac Type Severity Reaction Status Date / Time Bactrim Allergy Intermediate hives Verified 03/15/18 10:08 ciprofloxacin Allergy Unknown hives Verified 09/15/22 09:28 Iodinated Contrast Media Allergy Unknown ANAPHYLAXIS Verified 09/15/22 09:28 /CONVULSION S metronidazole Allergy Unknown HIVES Verified 09/15/22 09:28 sulfamethoxazole Allergy Unknown hives Verified 09/15/22 09:28 sumatriptan Allergy Unknown SOB,INCREASED Verified 09/15/22 09:28 HEARTRATE trimethoprim Allergy Unknown hives Verified 09/15/22 09:28 adhesive AdvReac Unknown SEVERE Verified 09/15/22 09:28 BURNING BLISTERS fluconazole AdvReac Unknown hyperkalemi Verified 09/15/22 09:28 a tramadol AdvReac Unknown FATIGUE Verified 09/15/22 09:28 Consultations 11/01/22 02:20 ED Decision to Admit Stat 11/01/22 04:26 Consult Cardiology Routine Ordered Studies 10/31/22 22:41 CT chest diagnostic wo con Stat 1. No acute pathology in the thorax. 2. Dense calcifications in the right breast which has progressed since a 2017 comparison study. Please correlate with patient's prior mammography. Hospital Course (1) HTN (hypertension): Chronic - Continue amlodipine, losartan, carvedilol - Add Chlorthalidone 25mg one in AM - Recommend to follow up with HTN clinic (2) PMR (polymyalgia rheumatica): Chronic/stable Also hx of fibromyalgia - Continue daily prednisone (3) Sleep apnea: Chronic/unstable - patient noncompliant with CPAP - Discussed to follow up with PCP regarding possible repeat sleep study vs new head gear/machine - Advised on the benefits of treatment and risks on nontreatment (4) GERD (gastroesophageal reflux disease): chronic/stable - Continue PPI - Follows with GI - Had recent EGD (5) Type 2 diabetes mellitus: Chronic/stable - Last HgbA1C in july was 7.5 - Discussed Jardiance vs Ozempic ith patient - Discussed dietary changes (low carb, low sodium) and exercise and the need to loose weight (6) Restrictive lung disease secondary to obesity: Chronic - As above for weight loss - Would benefit from nutritional counseling (7) Dyspnea: Likely multifactorial - untreated sleep apnea - morbid obesity - known restrictive lung disease - along with 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 Patient wished to be discharged to home and have a follow up with her PCP. Total Time Total Time Spent Total Time Spent (In Minutes): 40 Discharge Plan Discharge Items Patient Disposition: Home - Self-Care Reason For Visit: SOB Discharge Diagnosis: HTN Dysnea Condition on Discharge: Fair Activity: Resume your previous activity Non-emergency contact: Primary Care Provider Call non-emergency contact if: you have any medication questions, your symptoms worsen and your pain is not controlled Follow-up/Referrals: Lucila Rojas MD [Primary Care Provider] - Diet: Carb Consistent or DM2 and Heart Healthy Addtl Attending Provider Instructions: you were admitted with symptoms of trouble breathing with exertion. You had an echo, blood work, CT scan and were evaluated by cardiology. Your blood pressure was elevated on admission and since has improved. 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 Cardiology did not feel any additional cardiac evaluations were warranted. They did suggest controlling your blood pressure more aggressively and taking a diuretic on a more regular basis would likely attenuate any cardiac symptoms. You were started on Chlorthalidone 25mg to take one in the AM in place of the prn Lasix (furosemide) that you were previously taking. You should follow up with your PCP next week nd discuss possibly another sleep study vs just getting fitted for other masks and possibly a newer machine than you had initially tried in the past. Discussed also weight loss, diet changes and exercise. Low sodium, low carboohydrate diet. Also discussed Jardiance or Ozempic. Cardiology also recommended for your to follow up with the HTN clinic and advised for aggressive Cholesterol treatment. Possibly getting a repeat Lipid profile and recommended the LDL goal of 70. Pending Studies at Discharge: No Stand-Alone Forms: My [employer] [facility] [facility] [employer] Medications and DC Order Prescriptions: New chlorthalidone 25 mg Tablet 25 mg PO QAM Qty: 30 0RF Continued (DME) lancets [OneTouch Delica Lancets] 30 gauge misc See Rx Instructions .ROUTE .MEDSUPPLY Qty: 100 5RF Rx Instructions: As directed to test sugar 3 to 4 times daily losartan 50 mg tablet 50 mg PO BID Qty: 180 3RF Novolin 70/30 U-100 Insulin 100 unit/mL (70-30) suspension 100 unit SUBCUT BID 30 Days Qty: 60 11RF (DME) blood sugar diagnostic Strip See Rx Instructions .ROUTE .MEDSUPPLY Qty: 200 5RF Rx Instructions: Test blood sugar up to 6 times daily for insulin monitoring pantoprazole 40 mg tablet,delayed release (DR/EC) 40 mg PO BID Qty: 180 3RF carvedilol 6.25 mg tablet 6.25 mg PO BID Qty: 180 3RF Rx Instructions: must administer with a meal/food (DME) insulin syringe-needle U-100 [BD Insulin Syringe Ultra-Fine] 1 mL 31 gauge x 5/16 syringe See Rx Instructions .Route Qty: 200 3RF Rx Instructions: use to inject insulin twice daily aspirin [Adult Aspirin Regimen] 81 mg tablet,delayed release (DR/EC) 81 mg PO HS metformin 500 mg tablet extended release 24 hr 500 mg PO BID Qty: 180 3RF nystatin 100,000 unit/mL suspension 500,000 unit PO TID 7 Days Qty: 105 0RF Rx Instructions: swish and swallow allopurinol 100 mg tablet 100 mg PO DAILY Patient Comments: QAM celecoxib [Celebrex] 200 mg capsule 200 mg PO QPM amlodipine [Norvasc] 10 mg tablet 10 mg PO QPM diclofenac sodium [Voltaren Arthritis Pain] 1 % gel 2 g topical QID PRN (Reason: Pain) Patient Comments: 1% prednisone 5 mg tablet 10 mg PO DAILY Discharge Orders: Discharge Order (Routine); Ordered 11/01/22 Ordered By: Sheyla Salas/Other Patient Handouts: Diabetes: The Benefits of Exercise, ED Sleep Apnea, Obstructive, Diabetes and High Blood Pressure Admission Data Admit Date/Time: 11/01/22 03:03 Attending Provider: Forrest Hutchison Admit Provider: Brandon Leong Primary Care Provider: Lucila Rojas Other Providers: Javid Figueroa ; Erasmo Bazan Other Interventions: Discharge Summary Assessment (RN) Last Done: 11/01/22 15:28 Coding Level of Care Code 96363 INP/OBS DISCH >30 MIN Diagnoses HTN (hypertension) I10 PMR (polymyalgia rheumatica) M35.3 Sleep apnea G47.33 Sleep apnea type: obstructive GERD (gastroesophageal reflux disease) K21.9 Type 2 diabetes mellitus E11.65; Z79.4 Diabetes mellitus complication status: with hyperglycemia Diabetes mellitus longterm insulin use: with terminologist use Restrictive lung disease secondary to obesity J98.4; E66.9 Dyspnea R06.00
--- NOTE | 2022-11-01 19:50 | Billing Data ---
Date of Service November 01, 2022 Coding Level of Care Code 58984 INT INP/OBS CARE
[2022-11-01] MEDS ORDERED: ASPIRIN 81 MG ECTAB PO SCH (21:00)
[2022-11-01] MEDS ORDERED: amLODIPine BESYLATE 5 MG TAB PO SCH (21:00)
[2022-11-01] MEDS ORDERED: CeleBREX 200 MG CAP PO SCH (21:00)
== END 2022-11-01 16:40 | disposition home or self-care (01) ==
LOC: EDINP 20:37 → ED 20:37 → SUATTDRO 11-01 03:03 → 2N 11-01 06:17

== ENCOUNTER 2023-03-10 07:15 | Observation (INO) ==
[2023-03-10] MEDS ORDERED: ASPIRIN CHEW 324 MG PO STA (07:31)
--- NOTE | 2023-03-10 07:36 | Emergency Department Note ---
History of Present Illness General Chief complaint: Chest Pain Stated complaint: HEART PAIN,SHORTNESS OF BREATH Time Seen by Provider: 03/10/23 07:22 Source: patient, RN notes reviewed and old records reviewed Mode of arrival: ambulatory Limitations: no limitations History of Present Illness Maximum Pain Intensity: 6 This patient is a 77-year-old female who woke up at 4:00 with chest pain. She says it is left-sided. There is no radiation to the arm neck or back she feels mildly short of breath although she has chronic shortness of breath and says that is unchanged. She said her blood pressure was up at home she is been taking her medications as directed. She tried Rolaids without relief it is nonpleuritic there is nothing particular makes it better or worse. She said describes as a rolling pain occurring about every 5 minutes lasting about 2 minutes. She does have a history of CHF but has had no recent weight gain or edema. No numbness or weakness with exception of some chronic neuropathy in her right leg she does have fibromyalgia does tend to get pain in her legs but typically does not get pain in her chest she tells me no fever chills or cough no fall or trauma. no abdominal pain. no lower extremity pain or swelling. no blood or black colors in her stool. Home Medications Medication Instructions Recorded Confirmed Type lancets 30 gauge (OneTouch Delica #100 ea 08/25/19 03/04/23 Rx Lancets) aspirin 81 mg tablet,delayed 81 mg PO HS 02/27/20 03/10/23 History release (Adult Aspirin Regimen) blood sugar diagnostic #200 ea 08/22/22 03/04/23 Rx insulin human U-100 NPH-regulr 100 unit subcut BID 30 days #60 mL 08/22/22 03/10/23 Rx 70-30 mix 100 unit/mL subcutaneous susp (Novolin 70/30 U-100 Insulin) carvedilol 6.25 mg tablet 6.25 mg PO BID #180 tabs 10/13/22 03/10/23 Rx insulin syringe-needle U-100 1 mL #200 ea 10/13/22 03/04/23 Rx 31 gauge x 5/16" (BD Insulin Syringe Ultra-Fine) pantoprazole 40 mg tablet,delayed 40 mg PO DAILY #90 tabs 11/05/22 03/10/23 Rx release chlorthalidone 25 mg tablet 25 mg PO DAILY #90 tabs 11/18/22 03/10/23 Rx allopurinol 100 mg tablet 100 mg PO DAILY #90 tabs 12/16/22 03/10/23 Rx losartan 50 mg tablet 50 mg PO BID #180 tabs 02/12/23 03/10/23 Rx metformin 500 mg tablet,extended 500 mg PO BID #180 tabs 02/12/23 03/10/23 Rx release 24 hr amlodipine 10 mg tablet (Norvasc) 10 mg PO QPM #90 tabs 02/24/23 03/10/23 Rx empagliflozin 10 mg tablet 10 mg PO DAILY #30 tabs 03/04/23 03/10/23 Rx (Jardiance) celecoxib 200 mg capsule (Celebrex) 200 mg PO DAILY 03/10/23 03/10/23 History furosemide 40 mg tablet 40 mg PO .COMPLEX #15 tabs 03/10/23 Rx magnesium 1 tab PO DAILY 03/10/23 03/10/23 History oxybutynin chloride 10 mg 10 mg PO DAILY 03/10/23 03/10/23 History tablet,extended release 24 hr prednisone 5 mg tablet 9 mg PO DAILY 03/10/23 03/10/23 History Allergies Allergy/AdvReac Type Severity Reaction Status Date / Time Bactrim Allergy Intermediate hives Verified 03/15/18 10:08 ciprofloxacin Allergy Unknown hives Verified 03/04/23 14:00 Iodinated Contrast Media Allergy Unknown ANAPHYLAXIS Verified 03/04/23 14:00 /CONVULSION S metronidazole Allergy Unknown HIVES Verified 03/04/23 14:00 sulfamethoxazole Allergy Unknown hives Verified 03/04/23 14:00 sumatriptan Allergy Unknown SOB,INCREASED Verified 03/04/23 14:00 HEARTRATE trimethoprim Allergy Unknown hives Verified 03/04/23 14:00 adhesive AdvReac Unknown SEVERE Verified 03/04/23 14:00 BURNING BLISTERS fluconazole AdvReac Unknown hyperkalemi Verified 03/04/23 14:00 a tramadol AdvReac Unknown FATIGUE Verified 03/04/23 14:00 Past Med/Surg History Medical History Bilateral tinnitus Chronic diastolic CHF (congestive heart failure) type 1 diastolic dysfunction on echo Difficult intravenous access difficult iv access left arm Difficulty swallowing reason for upcoming procedure Diverticulosis surgical intervention recommended / not yet scheduled Fibromyalgia GERD (gastroesophageal reflux disease) GIB (gastrointestinal bleeding) ulcerated hemangioma resected 2018 History of breast cancer RT x2 dx 2001 & 2010 (SURGERY WITH RADIATION) History of colon polyps History of kidney stones HTN (hypertension) Incisional breast wound right / reason for current abx / under care of general surgeon and pcp Iron deficiency anemia Osteoarthritis Overactive bladder PMR (polymyalgia rheumatica) Pulmonary nodules Sleep apnea NO DEVICE "MILD" SNHL (sensorineural hearing loss) Spinal stenosis Statin myopathy Subclinical hypothyroidism Transient ischemic attack (TIA) x 4 (2014, 2015, 2019, 2021) NO CURRENT PROBLEMS FROM EVENT Type 2 diabetes mellitus Surgical History H/O lithotripsy H/O lumpectomy RT X 2 History of arthroscopy RT KNEE History of bilateral tubal ligation History of breast biopsy History of cardiac cath ~2009 -NO STENTS AT [facility] WITH DR. REGALADO History of colonoscopy History of esophagogastroduodenoscopy (EGD) History of tooth extraction S/P appendectomy Family History Grandmother Family history of diabetes mellitus Father Family history of diabetes mellitus Lung cancer Lung disease Diabetes Mother MDP (myeloproliferative disorder) Family history of diabetes mellitus Glaucoma Hypertension Gall bladder disease Diabetes Unknown Leukemia Myocardial infarction Grandmother (Maternal) Diabetes Other No family history of adverse response to anesthesia Social History Smoking Status: Never smoker Second Hand Exposure: Yes (as a child); Do You Dip or Chew Tobacco: No; Hx Alcohol Use: No Hx Substance Use: No Preferred Language: Nepali Communication Ability: Effective Dampener Operator Required: No Beliefs That Will Affect Care: None marital status: marital status details: No children Current Living Situation: Spouse current occupational status: retired 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 [employer] Feels Safe at Home: Yes Assistive Devices: Cane Review of Systems A total of 10 systems reviewed and were otherwise negative Physical Exam Vital Signs Vital Signs - 24 hr 03/10/23 07:20 03/10/23 07:32 03/10/23 07:32 Temperature 36.9 C 36.8 C Temperature Source Temporal Artery Scan Oral Pulse Rate 83 Pulse Rate [Apical] 74 Pulse Rate from SpO2 Sensor Pulse Rhythm [Apical] Regular Pulse Strength [Apical] Normal Respiratory Rate 18 17 Respiratory Effort / Characteristics Non-Labored Spontaneous Non-Labored Spontaneous Respiratory Depth Normal Normal Respiratory Pattern Regular Blood Pressure 225/86 H Blood Pressure [Left Arm] Blood Pressure Mean 132 Blood Pressure Mean [Left Arm] Blood Pressure Position [Left Arm] Pulse Oximetry 98 94 94 Oxygen Delivery Method Room Air Room Air Room Air Sepsis Recent Fever Within 48 Hours No Sepsis New/Unexplained Change in Mental Status No Sepsis Action Taken by Nursing No Action Required 03/10/23 07:42 03/10/23 07:43 03/10/23 07:31 Temperature Temperature Source Pulse Rate 78 Pulse Rate [Apical] Pulse Rate from SpO2 Sensor Pulse Rhythm [Apical] Pulse Strength [Apical] Respiratory Rate 24 Respiratory Effort / Characteristics Respiratory Depth Respiratory Pattern Blood Pressure Blood Pressure [Left Arm] 190/66 H Blood Pressure Mean Blood Pressure Mean [Left Arm] 107 Blood Pressure Position [Left Arm] Pulse Oximetry 94 Oxygen Delivery Method Room Air Sepsis Recent Fever Within 48 Hours Sepsis New/Unexplained Change in Mental Status Sepsis Action Taken by Nursing 03/10/23 07:40 03/10/23 07:42 03/10/23 07:42 Temperature Temperature Source Pulse Rate 74 72 Pulse Rate [Apical] Pulse Rate from SpO2 Sensor 76 74 Pulse Rhythm [Apical] Pulse Strength [Apical] Respiratory Rate 21 22 Respiratory Effort / Characteristics Respiratory Depth Respiratory Pattern Blood Pressure 190/66 H Blood Pressure [Left Arm] Blood Pressure Mean 107 Blood Pressure Mean [Left Arm] Blood Pressure Position [Left Arm] Pulse Oximetry 92 93 Oxygen Delivery Method Sepsis Recent Fever Within 48 Hours Sepsis New/Unexplained Change in Mental Status Sepsis Action Taken by Nursing 03/10/23 07:50 03/10/23 08:00 03/10/23 08:01 Temperature Temperature Source Pulse Rate 83 74 Pulse Rate [Apical] Pulse Rate from SpO2 Sensor 74 75 Pulse Rhythm [Apical] Pulse Strength [Apical] Respiratory Rate 15 18 Respiratory Effort / Characteristics Respiratory Depth Respiratory Pattern Blood Pressure 169/88 H Blood Pressure [Left Arm] Blood Pressure Mean 115 Blood Pressure Mean [Left Arm] Blood Pressure Position [Left Arm] Pulse Oximetry 93 93 Oxygen Delivery Method Sepsis Recent Fever Within 48 Hours Sepsis New/Unexplained Change in Mental Status Sepsis Action Taken by Nursing 03/10/23 08:01 03/10/23 08:10 03/10/23 08:20 Temperature Temperature Source Pulse Rate 73 75 72 Pulse Rate [Apical] Pulse Rate from SpO2 Sensor 74 73 72 Pulse Rhythm [Apical] Pulse Strength [Apical] Respiratory Rate 16 22 21 Respiratory Effort / Characteristics Respiratory Depth Respiratory Pattern Blood Pressure Blood Pressure [Left Arm] Blood Pressure Mean Blood Pressure Mean [Left Arm] Blood Pressure Position [Left Arm] Pulse Oximetry 93 93 92 Oxygen Delivery Method Sepsis Recent Fever Within 48 Hours Sepsis New/Unexplained Change in Mental Status Sepsis Action Taken by Nursing 03/10/23 08:53 03/10/23 08:53 03/10/23 09:00 Temperature Temperature Source Pulse Rate Pulse Rate [Apical] Pulse Rate from SpO2 Sensor 73 Pulse Rhythm [Apical] Pulse Strength [Apical] Respiratory Rate 21 Respiratory Effort / Characteristics Respiratory Depth Respiratory Pattern Blood Pressure 165/63 H 171/72 H Blood Pressure [Left Arm] Blood Pressure Mean 97 105 Blood Pressure Mean [Left Arm] Blood Pressure Position [Left Arm] Pulse Oximetry 94 Oxygen Delivery Method Sepsis Recent Fever Within 48 Hours Sepsis New/Unexplained Change in Mental Status Sepsis Action Taken by Nursing 03/10/23 09:00 03/10/23 09:10 03/10/23 09:20 Temperature Temperature Source Pulse Rate 73 Pulse Rate [Apical] Pulse Rate from SpO2 Sensor 69 76 Pulse Rhythm [Apical] Pulse Strength [Apical] Respiratory Rate 21 27 H 22 Respiratory Effort / Characteristics Respiratory Depth Respiratory Pattern Blood Pressure Blood Pressure [Left Arm] Blood Pressure Mean Blood Pressure Mean [Left Arm] Blood Pressure Position [Left Arm] Pulse Oximetry 94 92 Oxygen Delivery Method Sepsis Recent Fever Within 48 Hours Sepsis New/Unexplained Change in Mental Status Sepsis Action Taken by Nursing 03/10/23 09:30 03/10/23 10:43 Temperature Temperature Source Pulse Rate 75 Pulse Rate [Apical] 73 Pulse Rate from SpO2 Sensor 78 Pulse Rhythm [Apical] Regular Pulse Strength [Apical] Normal Respiratory Rate 23 17 Respiratory Effort / Characteristics Non-Labored Spontaneous Respiratory Depth Normal Respiratory Pattern Regular Blood Pressure Blood Pressure [Left Arm] 176/66 H Blood Pressure Mean Blood Pressure Mean [Left Arm] 102 Blood Pressure Position [Left Arm] Semi-fowlers Pulse Oximetry 91 92 Oxygen Delivery Method Room Air Sepsis Recent Fever Within 48 Hours Sepsis New/Unexplained Change in Mental Status Sepsis Action Taken by Nursing General: Well developed well nourished older female who in no acute distress, breathing comfortably on room air. Normal speech HEENT: Normal cephalic atraumatic. Pupils are equal round and reactive to light. Extraocular movements are intact. Oropharynx is pink with moist mucous membranes. No swelling of the mouth lips or tongue. Neck: Supple with a midline trachea. No meningeal signs or stiffness, no JVD or bruits. No Stridor. Chest: Clear to auscultation bilaterally. She is somewhat tender palpation along the left sternal border no wheezes or rhonchi. No increased work of breathing. Heart: Regular rate and rhythm without murmurs or gallops. Abdomen: Soft nontender, nondistended without rebound guarding or rigidity. Extremities: No cyanosis clubbing or edema. No calf tenderness or assymetry Spine/Back. Non tender to palpation. No CVA tenderness Skin: Good turgor without rashes. Neurologic exam: Cranial nerves two through 12 are intact. Motor and sensation are intact and symmetrical throughout. Procedures Free Text Procedures The patient was placed in observation status at 731 03/10/23 for chest pain during the time in observation, the patient was frequently reassessed and received continuous registrar nurses' registry, EKG x2, troponin x2 on Final reassessment t he patient had nonischemic AGH and troponin however did have chest pain that got somewhat better with nitro and has multiple cardiac risk factors and therefore and the patient will be admitted/observed in the hospital at this time 957 on 03/10/23. A total observation time of 2 hours and 26 minutes. Course Administered Medications Discontinued Medications Allopurinol (Allopurinol 100 Mg Tab) 100 mg PO DAILY [facility] Stop: 04/09/23 13:59 Last Admin: 03/10/23 16:19 Dose: 100 mg Documented By: LUDA Aspirin (Aspirin Chew 324 Mg) 324 mg PO NOW STA Stop: 03/10/23 07:32 Last Admin: 03/10/23 07:41 Dose: 324 mg Documented By: TINO Atropine Sulfate (Atropine Sulfate 0.1 Mg/Ml 10ml Syr) Confirm Administered Dose 2 mg IV .STK-MED ONE Stop: 03/10/23 12:30 Last Admin: 03/10/23 13:14 Dose: 0.25 mg Documented By: KATHY Celecoxib (Celebrex 200 Mg Cap) 200 mg PO DAILY [facility] Stop: 04/09/23 13:59 Last Admin: 03/10/23 16:40 Dose: Not Given Documented By: LUDA Chlorthalidone (Chlorthalidone 25 Mg Tab) 25 mg PO DAILY [facility] Stop: 04/09/23 14:14 Last Admin: 03/10/23 16:21 Dose: 25 mg Documented By: LUDA Dobutamine HCl (Dobutamine Hcl 12.5 Mg/Ml 20 Ml Vial) Confirm Administered Dose 250 mg IV .STK-MED ONE Stop: 03/10/23 12:31 Last Admin: 03/10/23 13:15 Dose: 1 dose Documented By: KATHY Famotidine (Famotidine 40 Mg Tablet) 40 mg PO NOW ONE Stop: 03/10/23 14:16 Last Admin: 03/10/23 16:18 Dose: 40 mg Documented By: LUDA Lactated Ringer's (Lr) 500 mls @ 999 mls/hr IV .Q31M ONE Stop: 03/10/23 11:20 Last Infusion: 03/10/23 11:27 Dose: 0 mls/hr Documented By: Admin: 03/10/23 11:15 Dose: 999 mls/hr Documented By: TINO Insulin Aspart (Insulin Aspart Per Unit Charge) 0 units SC ACHS [facility] Stop: 04/09/23 13:48 Last Admin: 03/10/23 16:30 Dose: 7 units Documented By: LUDA Co-signed By: ANAMIKA Insulin Glargine (Lantus Per Unit Charge) 10 units SQ BID [facility] Stop: 04/09/23 13:48 Last Admin: 03/10/23 16:31 Dose: 10 units Documented By: LUDA Co-signed By: ANAMIKA Ketorolac Tromethamine (Ketorolac Tromethamine 15 Mg/Ml Vial) 15 mg IV NOW ONE Stop: 03/10/23 11:00 Last Admin: 03/10/23 11:15 Dose: 15 mg Documented By: TINO Losartan Potassium (Losartan Potassium 50 Mg Tab) 50 mg PO BID [facility] Stop: 04/09/23 14:14 Last Admin: 03/10/23 16:40 Dose: Not Given Documented By: LUDA Magnesium Oxide (Magnesium Oxide 400 Mg Tab) 1 mg PO DAILY [facility] Stop: 04/09/23 14:14 Last Admin: 03/10/23 16:33 Dose: Not Given Documented By: LUDA Metoprolol Tartrate (Metoprolol Tartrate 1 Mg/Ml Vial) Confirm Administered Dose 10 mg IV .STK-MED ONE Stop: 03/10/23 12:31 Last Admin: 03/10/23 13:16 Dose: 5 mg Documented By: KATHY Morphine Sulfate (Morphine Sulfate 2 Mg/Ml [place]) 1 mg IV NOW STA Stop: 03/10/23 13:39 Last Admin: 03/10/23 13:47 Dose: 1 mg Documented By: ITNO Nitroglycerin (Nitroglycerin Sl 0.4 Mg/Tab Tab) 0.4 mg SL NOW STA Stop: 03/10/23 09:02 Last Admin: 03/10/23 09:03 Dose: 0.4 mg Documented By: TINO Nitroglycerin (Nitroglycerin Sl 0.4 Mg/Tab Tab) 0.4 mg SL Q5M PRN PRN Reason: Chest Pain Stop: 04/09/23 09:22 Last Admin: 03/10/23 09:48 Dose: 0.4 mg Documented By: Admin: 03/10/23 09:31 Dose: 0.4 mg Documented By: TINO Pantoprazole Sodium (Pantoprazole 40 Mg Tab) 40 mg PO DAILY [facility] Stop: 04/09/23 14:14 Last Admin: 03/10/23 16:18 Dose: 40 mg Documented By: LUDA Perflutren Lipid Microsphere (Perflutren Lipid Microsphere (Definity)) 2 ml IV ONCE ONE Stop: 03/10/23 13:18 Last Admin: 03/10/23 13:17 Dose: 2 ml Documented By: KATHY Prednisone (Prednisone 5 Mg Tab) 5 mg PO DAILY [facility] Stop: 04/09/23 14:14 Last Admin: 03/10/23 16:20 Dose: 5 mg Documented By: LUDA Prednisone (Prednisone 1 Mg Tab) 4 mg PO DAILY [facility] Stop: 04/09/23 14:14 Last Admin: 03/10/23 16:22 Dose: 4 mg Documented By: LUDA Medical Decision Making Differential Diagnosis Acute coronary syndrome, arrhythmia, CHF, musculoskeletal, fibromyalgia, aortic dissection/pathology, pneumothorax Medical Records Attestation: I reviewed the patient's medical records. Home Medications Current Medication List: was personally reviewed by hi Laboratory Data Attestation: I reviewed the patient's lab results. 03/10/23 07:30 03/10/23 07:30 Lab Results 03/10/23 03/10/23 03/10/23 Range/Units 07:30 07:30 07:30 WBC 13.79 H (4.8-10.8) K/ul RBC 5.01 (4.20-5.40) M/uL Hgb 12.9 (12.0-16.0) g/dl Hct 41.3 (37.0-47.0) % MCV 82.4 (80.0-100.0) fL MCH 25.7 (25.0-34.0) pg MCHC 31.2 L (32.0-36.0) g/dL RDW Std Deviation 51.4 H (36.4-46.3) fL RDW Coeff of Guevara 17.8 H (11.5-14.5) % Plt Count 327 (130-400) K/uL MPV 10.7 (9.4-12.4) fL Immature Gran % (Auto) 2.4 % Neut % (Auto) 75.1 % Lymph % (Auto) 14.9 % [place] % (Auto) 5.7 % Eos % (Auto) 1.3 % Baso % (Auto) 0.6 % Neut # (Auto) 10.36 H (1.40-6.50) K/uL Lymph # (Auto) 2.06 (1.2-3.4) K/uL [place] # (Auto) 0.78 H (0.11-0.59) K/uL Eos # (Auto) 0.18 (0-0.50) K/uL Baso # (Auto) 0.08 (0-0.2) K/uL Immature Gran # (Auto) 0.33 H (0.01-0.20) K/uL PT 10.6 (9.0-12.0) Seconds INR 1.0 (0.9-1.1) APTT 25.6 (21.0-31.0) Seconds PTT Ratio 0.9 Sodium 139 (136-145) mmol/L Potassium 4.3 (3.5-5.1) mmol/L Chloride 99 (98-107) mmol/L Carbon Dioxide 30 (21-32) mmol/L Anion Gap 10 (3-11) BUN 27 H (6-23) mg/dl Creatinine 1.08 (0.6-1.2) mg/dl Est Cr Clr Drug Dosing 57.4 ml/min Est GFR ( Amer) 57.3 ml/min Est GFR (Non-Af Amer) 49.5 ml/min BUN/Creatinine Ratio 25.0 H (10-20) Glucose 243 H (70-99(Fasting)) mg/dl Calcium 10.2 (8.6-10.3) mg/dl Total Bilirubin 0.4 (0.2-1.0) mg/dl AST 18 (13-39) U/L ALT 23 (7-52) U/L Alkaline Phosphatase 46 (34-104) U/L Troponin I High Sens 8.0 (0-14) pg/ml Total Protein 8.0 (6.0-8.3) gm/dl Albumin 4.2 (3.4-5.0) gm/dl Globulin 3.8 (2.5-4.0) gm/dl Albumin/Globulin Ratio 1.1 (0.9-2) Lipase 16 (11-82) U/L 03/10/23 Range/Units 09:39 WBC (4.8-10.8) K/ul RBC (4.20-5.40) M/uL Hgb (12.0-16.0) g/dl Hct (37.0-47.0) % MCV (80.0-100.0) fL MCH (25.0-34.0) pg MCHC (32.0-36.0) g/dL RDW Std Deviation (36.4-46.3) fL RDW Coeff of Guevara (11.5-14.5) % Plt Count (130-400) K/uL MPV (9.4-12.4) fL Immature Gran % (Auto) % Neut % (Auto) % Lymph % (Auto) % [place] % (Auto) % Eos % (Auto) % Baso % (Auto) % Neut # (Auto) (1.40-6.50) K/uL Lymph # (Auto) (1.2-3.4) K/uL [place] # (Auto) (0.11-0.59) K/uL Eos # (Auto) (0-0.50) K/uL Baso # (Auto) (0-0.2) K/uL Immature Gran # (Auto) (0.01-0.20) K/uL PT (9.0-12.0) Seconds INR (0.9-1.1) APTT (21.0-31.0) Seconds PTT Ratio Sodium (136-145) mmol/L Potassium (3.5-5.1) mmol/L Chloride (98-107) mmol/L Carbon Dioxide (21-32) mmol/L Anion Gap (3-11) BUN (6-23) mg/dl Creatinine (0.6-1.2) mg/dl Est Cr Clr Drug Dosing ml/min Est GFR ( Amer) ml/min Est GFR (Non-Af Amer) ml/min BUN/Creatinine Ratio (10-20) Glucose (70-99(Fasting)) mg/dl Calcium (8.6-10.3) mg/dl Total Bilirubin (0.2-1.0) mg/dl AST (13-39) U/L ALT (7-52) U/L Alkaline Phosphatase (34-104) U/L Troponin I High Sens 7.1 (0-14) pg/ml Total Protein (6.0-8.3) gm/dl Albumin (3.4-5.0) gm/dl Globulin (2.5-4.0) gm/dl Albumin/Globulin Ratio (0.9-2) Lipase (11-82) U/L Imaging Data Attestation: I personally reviewed and interpreted this imaging study as follows: My Impression: Chest x-rayno acute infiltrate, failure, pneumothorax seen. Radiologist's Impression: Chest X-Ray 03/10/23 07:31 SINGLE VIEW CHEST CLINICAL HISTORY: Atypical chest pain. FINDINGS: An AP, portable, upright chest radiograph is compared to study dated 10/31/2022 and correlated with chest CT dated 11/01/2022. The heart is mildly enlarged noting atherosclerotic calcification of the thoracic aorta. The pulmonary vasculature is noncongested. There is chronic elevation of the right hemidiaphragm with bibasilar scarring/atelectasis. No airspace consolidation or large pleural effusion is identified. Chronic interstitial thickening is similar previous. No pneumothorax is seen. The skeletal structures are osteopenic. The bony thorax is grossly intact. IMPRESSION: No acute cardiopulmonary abnormality. ACT 112: Negative or not required by law. Electronically signed by: Mateusz Moss M.D. 03/10/2023 7:57 AM ECG Data Attestation: I personally reviewed and interpreted this ECG as follows: Indication: + chest pain Rate (beats per minute): 81 Rhythm: + normal sinus ECG Intervals/blocks: + Incomplete right bundle branch block, + Normal QT and + Normal NE ECG [place]: + Normal ECG ST segments: + Normal ST segments ECG Findings: no PACs or no PVCs Comparison ECG Date: from (10/31/22) Change: no significant change Additional Comments: EKG #2: Normal sinus rhythm with PACs. Rate is 73 right bundle branch block. No acute ischemic changes or ectopy. Compared EKG #1 PACs are more prevalent otherwise no acute change MDM Narrative This patient is 77-year-old female comes in with chest pain. Given her cardiac risk factors, she was placed in ED observation and on a registrar nurses' registry and had extensive work-up. She looks well on exam. Her initial EKG is nonischemic appearing. IV access established and she was placed on a registrar nurses' registry. Multiple blood testing was obtained as well as chest x-ray and cardiac biomarkers she was given aspirin 324 mg p.o. She was reassessed frequently. Chest x-ray does not show any definite CHF, pneumonia, pneumothorax. Her second EKG does not show any change compared to the first. Initial troponin as well as follow-up troponin were negative. She did receive nitroglycerin and started feeling better after the first I gave her another 2. Her blood pressure has been stable and slightly hypertensive. I do not think is likely causing her symptoms. She has nothing to suggest CHF causing any active problems and she has no shortness of breath or pleurisy. I do not believe this is pulmonary embolism or aortic pathology. She has no evidence to suggest any infection. Although her initial work-up is nonischemic appearing I am concerned that she has multiple cardiac risk factors and did get better with nitro and would warrant more extensive cardiac work-up. I have consulted and discussed the case with the hospitalist at length. Continuous cardiac monitoring: Orders placed in EMR for continuous cardiac monitoring: Upon my evaluation patient noted to be in normal sinus rhythm with a rate of 80 Impression & Plan Chest pain, Type 2 diabetes mellitus, SOB (shortness of breath), Hypertension Discharge Plan Visit Data Chief Complaint: Chest Pain Stated Complaint: HEART PAIN,SHORTNESS OF BREATH ED Provider: Eusebio Castillo Discharge Problem: Chest pain, Type 2 diabetes mellitus, SOB (shortness of breath), Hypertension Patient Disposition: Admitted As Inpatient Discharge Instructions Interventions: ED Discharge Assessment Last Done: 03/10/23 12:51 Chest pain Qualifiers: Chest pain type: unspecified Qualified Code(s): R07.9 - Chest pain, unspecified Type 2 diabetes mellitus Qualifiers: Diabetes mellitus terminal operations supervisor insulin use: without terminal operations supervisor use Diabetes mellitus complication status: without complication Qualified Code(s): E11.9 - Type 2 diabetes mellitus without complications Hypertension Qualifiers: Hypertension type: unspecified Qualified Code(s): I10 - Essential (primary) hypertension
--- NOTE | 2023-03-10 07:58 | XRay Report ---
SINGLE VIEW CHEST CLINICAL HISTORY: Atypical chest pain. FINDINGS: An AP, portable, upright chest radiograph is compared to study dated 10/31/2022 and correlat ed with chest CT dated 11/01/2022. The heart is mildly enlarged noting atherosclerotic calcification o f the thoracic aorta. The pulmonary vasculature is noncongested. There is chronic elevation of the ri ght hemidiaphragm with bibasilar scarring/atelectasis. No airspace consolidation or large pleural eff usion is identified. Chronic interstitial thickening is similar previous. No pneumothorax is seen. Th e skeletal structures are osteopenic. The bony thorax is grossly intact. IMPRESSION: No acute cardiopulmonary abnormality. ACT 112: Negative or not required by law. Electronically signed by: Mateusz Moss M.D. 03/10/2023 7:57 AM
[2023-03-10 08:06] LABS: Basophils # (auto) 0.08 K/uL (0-0.2); Basophils % (auto) 0.6 %; Eosinophils # (auto) 0.18 K/uL (0-0.50); Eosinophils % (auto) 1.3 %; Hematocrit (blood only) 41.3 % (37.0-47.0); Hemoglobin 12.9 g/dl (12.0-16.0); Immature Granulocytes # (auto) 0.33 K/uL (0.01-0.20); Immature Granulocytes % (auto) 2.4 %; Lymphocytes # (auto) 2.06 K/uL (1.2-3.4); Lymphocytes % (auto) 14.9 %; Mean Corpuscular Hemoglobin 25.7 pg (25.0-34.0); Mean Corpuscular Hgb Conc 31.2 g/dL (32.0-36.0); Mean Corpuscular Volume 82.4 fL (80.0-100.0); Mean Platelet Volume 10.7 fL (9.4-12.4); Monocytes # (auto) 0.78 K/uL (0.11-0.59); Monocytes % (auto) 5.7 %; Neutrophils # (auto) 10.36 K/uL (1.40-6.50); Neutrophils % (auto) 75.1 %; Platelet Count 327 K/uL (130-400); RDW Coefficient of Variation 17.8 % (11.5-14.5); RDW Standard Deviation 51.4 fL (36.4-46.3); Red Blood Count 5.01 M/uL (4.20-5.40); White Blood Count 13.79 K/ul (4.8-10.8)
[2023-03-10 08:15] LABS: Partial Thromboplastin Ratio 0.9; Partial Thromboplastin Time 25.6 Seconds (21.0-31.0); Prothrombin Time 10.6 Seconds (9.0-12.0)
[2023-03-10 08:27] LABS: Albumin Globulin Ratio 1.1 (0.9-2); Albumin Level 4.2 gm/dl (3.4-5.0); Bilirubin,Total 0.4 mg/dl (0.2-1.0); Calcium 10.2 mg/dl (8.6-10.3); Creatinine Clr Calc Pharmacy 57.4 ml/min; Est GFR (African American) 57.3 ml/min; Est GFR (Non-African American) 49.5 ml/min; Globulin 3.8 gm/dl (2.5-4.0); Potassium 4.3 mmol/L (3.5-5.1)
[2023-03-10] MEDS ORDERED: NITROGLYCERIN SL 0.4 MG/TAB TAB SL STA (09:01)
[2023-03-10] MEDS: NITROGLYCERIN SL 0.4 MG/TAB TAB SL PRN ×2 (09:31→09:48)
--- NOTE | 2023-03-10 10:37 | History & Physical Report ---
Date of Service March 10, 2023 Assessment & Plan (1) Atypical chest pain: Plan: Patient is a 77-year-old female with a past medical history of hypertension, polymyalgia rheumatica, sleep apnea, GERD, DM 2, heart failure with preserved ejection fraction, fibromyalgia, overactive bladder, and chronic steroid use who presents to the hospital for the chief complaint of chest pain. Patient admitted for chest pain rule out with negative high-sensitivity troponin x2. She will get a dobutamine stress test while she is there. -Admit to [facility] with telemetry, telemetry indication is chest pain -Suspect pain is likely myofascial in nature given history of fibromyalgia, PMR, and pain increased with palpation of chest -High-sensitivity troponin negative x2 2 hours apart, 8.3--> 7.1 -Status post aspirin and 3 doses of sublingual nitroglycerin without improvement of symptoms -Ordered dobutamine stress test due to poor mobility, if negative can discharge home with PCP follow-up (2) HTN (hypertension): Plan: - Continue home regimen, patient has not taken her medications this morning (3) PMR (polymyalgia rheumatica): Plan: - Continue home prednisone, 9 mg daily (4) GERD (gastroesophageal reflux disease): Plan: - Continue PPI -Pain did not improve with utilization of Rolaids this morning, do not suspect chest pain is GI in nature (5) Osteoarthritis: Plan: - Hold Celebrex this morning, give Toradol given chest pain (6) Type 2 diabetes mellitus: Plan: - Hold oral DM2 meds, convert to basal bolus with sliding scale insulin -Since patient is n.p.o., give half recommended Lantus dose at 10 units (7) Chronic diastolic CHF (congestive heart failure): Plan: - Continue beta-blockade, losartan -Hold Lasix as she only takes it once a week or with 3 pound weight gain -Be conservative with IV fluids (8) Fibromyalgia: Plan: - Noted, continue activity and pain medication as needed Plan Disposition: Admit to [facility] with telemetry for chest pain rule out and dobutamine stress test DVT prophylaxis: Heparin Diet: N.p.o. CODE STATUS: Full code History of Present Illness Chief Complaint: Chest pain Primary Care Provider: Lucila Rojas MD Patient is a 77-year-old female with a past medical history of hypertension, polymyalgia rheumatica, sleep apnea, GERD, DM 2, heart failure with preserved ejection fraction, fibromyalgia, overactive bladder, and chronic steroid use who presents to the hospital for the chief complaint of chest pain. Patient reports that she woke up at approximately 4 AM this morning with chest pain that was not relieved by anything including changing position or taking Rolaids. Because of this pain, she brought herself to the emergency department for evaluation. She reports that the pain is intermittent and describes it as a "rolling". She states that it comes in bursts of 4 to 10 minutes and then goes away then comes back. No referred pain anywhere. She does have a history of fibromyalgia and PMR, so she does have chronic pain that occurs frequently, however, she states that this feels different than her typical pain. The pain does not seem to improve with movement or changing position. Denies any nausea or vomiting. She is reporting some belching. Pain does not worsen or improve with breathing. Patient has never had a stroke or heart attack before. Otherwise has no other complaints at this time ED course: Patient brought back and evaluated by ED provider. Labs are significant for a mildly elevated white blood cell count at 13.8, normal coag panel, elevated glucose at 243, negative troponin x2 with 2 hours in between, and a normal lipase. Patient was given a dose of aspirin as well as 3 sublingual nitroglycerin doses with no improvement in her pain. Because of her chest pain with her risk factors, the hospitalist service was consulted for admission for chest pain rule out. Allergies Allergy/AdvReac Type Severity Reaction Status Date / Time Bactrim Allergy Intermediate hives Verified 03/15/18 10:08 ciprofloxacin Allergy Unknown hives Verified 03/04/23 14:00 Iodinated Contrast Media Allergy Unknown ANAPHYLAXIS Verified 03/04/23 14:00 /CONVULSION S metronidazole Allergy Unknown HIVES Verified 03/04/23 14:00 sulfamethoxazole Allergy Unknown hives Verified 03/04/23 14:00 sumatriptan Allergy Unknown SOB,INCREASED Verified 03/04/23 14:00 HEARTRATE trimethoprim Allergy Unknown hives Verified 03/04/23 14:00 adhesive AdvReac Unknown SEVERE Verified 03/04/23 14:00 BURNING BLISTERS fluconazole AdvReac Unknown hyperkalemi Verified 03/04/23 14:00 a tramadol AdvReac Unknown FATIGUE Verified 03/04/23 14:00 Home Medications Medication Instructions Recorded Confirmed Type lancets 30 gauge (OneTouch Delica #100 ea 08/25/19 03/04/23 Rx Lancets) aspirin 81 mg tablet,delayed 81 mg PO HS 02/27/20 03/10/23 History release (Adult Aspirin Regimen) blood sugar diagnostic #200 ea 08/22/22 03/04/23 Rx insulin human U-100 NPH-regulr 100 unit subcut BID 30 days #60 mL 08/22/22 03/10/23 Rx 70-30 mix 100 unit/mL subcutaneous susp (Novolin 70/30 U-100 Insulin) carvedilol 6.25 mg tablet 6.25 mg PO BID #180 tabs 10/13/22 03/10/23 Rx insulin syringe-needle U-100 1 mL #200 ea 10/13/22 03/04/23 Rx 31 gauge x 5/16" (BD Insulin Syringe Ultra-Fine) pantoprazole 40 mg tablet,delayed 40 mg PO DAILY #90 tabs 11/05/22 03/10/23 Rx release chlorthalidone 25 mg tablet 25 mg PO DAILY #90 tabs 11/18/22 03/10/23 Rx allopurinol 100 mg tablet 100 mg PO DAILY #90 tabs 12/16/22 03/10/23 Rx furosemide 40 mg tablet 40 mg PO .COMPLEX #15 tabs 02/03/23 03/10/23 Rx losartan 50 mg tablet 50 mg PO BID #180 tabs 02/12/23 03/10/23 Rx metformin 500 mg tablet,extended 500 mg PO BID #180 tabs 02/12/23 03/10/23 Rx release 24 hr amlodipine 10 mg tablet (Norvasc) 10 mg PO QPM #90 tabs 02/24/23 03/10/23 Rx empagliflozin 10 mg tablet 10 mg PO DAILY #30 tabs 03/04/23 03/10/23 Rx (Jardiance) celecoxib 200 mg capsule (Celebrex) 200 mg PO DAILY 03/10/23 03/10/23 History magnesium 1 tab PO DAILY 03/10/23 03/10/23 History oxybutynin chloride 10 mg 10 mg PO DAILY 03/10/23 03/10/23 History tablet,extended release 24 hr prednisone 5 mg tablet 9 mg PO DAILY 08/22/23 08/22/23 History Past Med/Surg History Medical History Bilateral tinnitus Chronic diastolic CHF (congestive heart failure) type 1 diastolic dysfunction on echo Difficult intravenous access difficult iv access left arm Difficulty swallowing reason for upcoming procedure Diverticulosis surgical intervention recommended / not yet scheduled Fibromyalgia GERD (gastroesophageal reflux disease) GIB (gastrointestinal bleeding) ulcerated hemangioma resected 2018 History of breast cancer RT x2 dx 2001 & 2010 (SURGERY WITH RADIATION) History of colon polyps History of kidney stones HTN (hypertension) Incisional breast wound right / reason for current abx / under care of general surgeon and pcp Iron deficiency anemia Osteoarthritis Overactive bladder PMR (polymyalgia rheumatica) Pulmonary nodules Sleep apnea NO DEVICE "MILD" SNHL (sensorineural hearing loss) Spinal stenosis Statin myopathy Subclinical hypothyroidism Transient ischemic attack (TIA) x 4 (2014, 2015, 2019, 2021) NO CURRENT PROBLEMS FROM EVENT Type 2 diabetes mellitus Surgical History H/O lithotripsy H/O lumpectomy RT X 2 History of arthroscopy RT KNEE History of bilateral tubal ligation History of breast biopsy History of cardiac cath ~2009 -NO STENTS AT [facility] WITH DR. REGALADO History of colonoscopy History of esophagogastroduodenoscopy (EGD) History of tooth extraction S/P appendectomy Family History Grandmother Family history of diabetes mellitus Father Family history of diabetes mellitus Lung cancer Lung disease Diabetes Mother MDP (myeloproliferative disorder) Family history of diabetes mellitus Glaucoma Hypertension Gall bladder disease Diabetes Unknown Leukemia Myocardial infarction Grandmother (Maternal) Diabetes Other No family history of adverse response to anesthesia Social History Smoking Status: Never smoker Second Hand Exposure: Yes (as a child); Do You Dip or Chew Tobacco: No; Hx Alcohol Use: No Hx Substance Use: No Preferred Language: Georgian Communication Ability: Effective First Leveler Required: No Beliefs That Will Affect Care: None marital status: marital status details: No children Current Living Situation: Spouse current occupational status: retired 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 [employer] Other Information That Helps Us Care for You: No Feels Safe at Home: Yes Safety Concerns: Feels Safe At This Time Assistive Devices: Cane Review of Systems Review of Systems: All systems reviewed & are unremarkable except as noted in HPI & below Physical Exam Constitutional: WD/WN, vitals as above Eyes: + anicteric sclerae ENMT: external ear and nose normal, oropharynx normal Neck: trachea midline, no thyromegaly Respiratory: normal respiratory effort Auscultation: lungs clear to auscultation bilaterally Cardiovascular: Rate/Rhythm: regular rate; + abnormal rhythm (Irregular rhythm) Heart Sounds: + murmur Extremities: + edema (trace LE edema) Chest (Breasts): Additional Comments: Pain to palpation of the L chest overlying of where her pain is Gastrointestinal (Abdomen): normal bowel sounds, soft, nontender, no hepatosplenomegaly Musculoskeletal: Head/Neck/Chest: normocephalic and head atraumatic Skin: no rashes, warm and dry Neurologic: moves all extremities Psychiatric: A+Ox3, euthymic affect Results & Data Results & Data Vital Signs (Past 12 Hours) Vital Signs Temp Pulse Pulse Resp BP BP Pulse Ox 03/10/23 09:30 75 23 91 03/10/23 09:20 73 22 03/10/23 09:10 27 H 92 03/10/23 09:00 21 94 03/10/23 09:00 171/72 H 03/10/23 08:53 21 94 03/10/23 08:53 165/63 H 03/10/23 08:20 72 21 92 03/10/23 08:10 75 22 93 03/10/23 08:01 73 16 93 03/10/23 08:01 169/88 H 03/10/23 08:00 74 18 93 03/10/23 07:50 83 15 93 03/10/23 07:42 190/66 H 03/10/23 07:42 72 22 93 03/10/23 07:40 74 21 92 03/10/23 07:31 78 24 03/10/23 07:43 190/66 H 03/10/23 07:42 94 03/10/23 07:32 36.8 C 74 17 94 03/10/23 07:32 94 03/10/23 07:20 36.9 C 83 18 225/86 H 98 O2 Del Method 03/10/23 09:30 03/10/23 09:20 03/10/23 09:10 03/10/23 09:00 03/10/23 09:00 03/10/23 08:53 03/10/23 08:53 03/10/23 08:20 03/10/23 08:10 03/10/23 08:01 03/10/23 08:01 03/10/23 08:00 03/10/23 07:50 03/10/23 07:42 03/10/23 07:42 03/10/23 07:40 03/10/23 07:31 03/10/23 07:43 03/10/23 07:42 Room Air 03/10/23 07:32 Room Air 03/10/23 07:32 Room Air 03/10/23 07:20 Room Air Code Status & VTE Plan VTE Prophylaxis Plan VTE Prophylaxis will be ordered: Yes Supervising Physician Co-Signing Physician Notes Patient was seen and examined independently I discussed the case with Brandon Leong DO I reviewed pertinent past medical social family history and also the plan of care and agree with the plan of care. Patient had atypical chest pain to negative troponin testing did have a negative stress test we will go home feeling that her pain is mostly musculoskeletal Examination finds her heart to be regular there is a systolic murmur lungs are clear without evidence of heart failure her she has no JVD Recommend follow-up with her primary care provider no medication changes at time of discharge Any exceptions will be noted below (6) Type 2 diabetes mellitus Diabetes mellitus complication status: without complication Diabetes mellitus penitentiary insulin use: without penitentiary use Qualified Code(s): E11.9 - Type 2 diabetes mellitus without complications
[2023-03-10] MEDS ORDERED: LACTATED RINGER'S 500 ML IV ONE (10:50)
[2023-03-10] MEDS ORDERED: KETOROLAC TROMETHAMINE 15 MG/ML VIAL IV ONE (10:59)
[2023-03-10] MEDS ORDERED: ATROPINE SULFATE 0.1 MG/ML 10ML SYR IV ONE (12:29)
[2023-03-10] MEDS ORDERED: METOPROLOL TARTRATE 1 MG/ML VIAL IV ONE (12:30)
[2023-03-10] MEDS ORDERED: DOBUTamine HCL 12.5 MG/ML 20 ML VIAL IV ONE (12:30)
[2023-03-10] MEDS ORDERED: PERFLUTREN LIPID MICROSPHERE (DEFINITY) IV ONE (13:17)
[2023-03-10] MEDS ORDERED: MoRPHine SULFATE 2 MG/ML CARP IV STA (13:38)
[2023-03-10] MEDS ORDERED: LANTUS PER UNIT CHARGE SQ SCH (13:49)
[2023-03-10] MEDS ORDERED: ACETAMINOPHEN 325 MG TAB PO PRN (13:49)
[2023-03-10] MEDS ORDERED: GLUCOSE 40% GEL 15 GM TUBE PO PRN (13:49)
[2023-03-10] MEDS ORDERED: INSULIN ASPART PER UNIT CHARGE SC SCH (13:49)
[2023-03-10] MEDS ORDERED: GLUCOSE 10 TAB/TUBE PO PRN (13:49)
[2023-03-10] MEDS ORDERED: DEXTROSE 50% 50 ML SYRINGE IV PRN (13:49)
[2023-03-10] MEDS ORDERED: CARBOHYDRATES FOR HYPOGLYCEMIA PO PRN (13:49)
[2023-03-10] MEDS ORDERED: GLUCAGON FOR INJ 1 MG VIAL SQ PRN (13:49)
[2023-03-10] MEDS ORDERED: allopurinoL 100 MG TAB PO SCH (14:00)
[2023-03-10] MEDS ORDERED: CeleBREX 200 MG CAP PO SCH (14:00)
[2023-03-10] MEDS ORDERED: predniSONE 5 MG TAB PO SCH (14:15)
[2023-03-10] MEDS ORDERED: LOSARTAN POTASSIUM 50 MG TAB PO SCH (14:15)
[2023-03-10] MEDS ORDERED: FAMOTIDINE 40 MG TABLET PO ONE (14:15)
[2023-03-10] MEDS ORDERED: CHLORTHALIDONE 25 MG TAB PO SCH (14:15)
[2023-03-10] MEDS ORDERED: predniSONE 1 MG TAB PO SCH (14:15)
[2023-03-10] MEDS ORDERED: PANTOprazole 40 MG TAB PO SCH (14:15)
[2023-03-10] MEDS ORDERED: MAGNESIUM OXIDE 400 MG TAB PO SCH (14:15)
--- NOTE | 2023-03-10 16:13 | XCELERA ---
[id number]
--- NOTE | 2023-03-10 16:58 | Discharge Summary ---
Date of Service March 10, 2023 Admission HPI Per Admitting Provider Patient is a 77-year-old female with a past medical history of hypertension, polymyalgia rheumatica, sleep apnea, GERD, DM 2, heart failure with preserved ejection fraction, fibromyalgia, overactive bladder, and chronic steroid use who presents to the hospital for the chief complaint of chest pain. Patient reports that she woke up at approximately 4 AM this morning with chest pain that was not relieved by anything including changing position or taking Rolaids. Because of this pain, she brought herself to the emergency department for evaluation. She reports that the pain is intermittent and describes it as a "rolling". She states that it comes in bursts of 4 to 10 minutes and then goes away then comes back. No referred pain anywhere. She does have a history of fibromyalgia and PMR, so she does have chronic pain that occurs frequently, however, she states that this feels different than her typical pain. The pain does not seem to improve with movement or changing position. Denies any nausea or vomiting. She is reporting some belching. Pain does not worsen or improve with breathing. Patient has never had a stroke or heart attack before. Otherwise has no other complaints at this time ED course: Patient brought back and evaluated by ED provider. Labs are significant for a mildly elevated white blood cell count at 13.8, normal coag panel, elevated glucose at 243, negative troponin x2 with 2 hours in between, and a normal lipase. Patient was given a dose of aspirin as well as 3 sublingual nitroglycerin doses with no improvement in her pain. Because of her chest pain with her risk factors, the hospitalist service was consulted for admission for chest pain rule out. Principal Diagnosis Myofascial chest pain Discharge Exam Constitutional WD/WN, vitals as above + morbidly obese, cooperative and comfortable; no acute distress Eyes + anicteric sclerae Neck trachea midline, no thyromegaly Respiratory normal respiratory effort, lungs clear to auscultation Cardiovascular Rate/Rhythm: regular rate; + abnormal rhythm (irregular) Heart Sounds: + murmur Extremities: normal capillary refill and + edema; no calf tenderness Gastrointestinal (Abdomen) normal bowel sounds, soft, nontender, no hepatosplenomegaly Psychiatric A+Ox3, euthymic affect Discharge Data Allergies Allergy/AdvReac Type Severity Reaction Status Date / Time Bactrim Allergy Intermediate hives Verified 08/27/18 10:08 ciprofloxacin Allergy Unknown hives Verified 03/04/23 14:00 Iodinated Contrast Media Allergy Unknown ANAPHYLAXIS Verified 03/04/23 14:00 /CONVULSION S metronidazole Allergy Unknown HIVES Verified 03/04/23 14:00 sulfamethoxazole Allergy Unknown hives Verified 03/04/23 14:00 sumatriptan Allergy Unknown SOB,INCREASED Verified 03/04/23 14:00 HEARTRATE trimethoprim Allergy Unknown hives Verified 03/04/23 14:00 adhesive AdvReac Unknown SEVERE Verified 03/04/23 14:00 BURNING BLISTERS fluconazole AdvReac Unknown hyperkalemi Verified 03/04/23 14:00 a tramadol AdvReac Unknown FATIGUE Verified 03/04/23 14:00 Consultations 03/10/23 09:57 ED Decision to Admit Stat Hospital Course (1) Atypical chest pain: Patient is a 77-year-old female with a past medical history of hypertension, polymyalgia rheumatica, sleep apnea, GERD, DM 2, heart failure with preserved ejection fraction, fibromyalgia, overactive bladder, and chronic steroid use who presents to the hospital for the chief complaint of chest pain. Patient admitted for chest pain rule out with negative high-sensitivity troponin x2. She will get a dobutamine stress test while she is there. -[facility], telemetry indication is chest pain -Suspect pain is likely myofascial in nature given history of fibromyalgia, PMR, and pain increased with palpation of chest -High-sensitivity troponin negative x2 2 hours apart, 8.3--> 7.1 -Status post aspirin and 3 doses of sublingual nitroglycerin without improvement of symptoms -Ordered dobutamine stress test due to poor mobility, if negative can discharge home with PCP follow-up (2) HTN (hypertension): - Continue home regimen, patient has not taken her medications this morning (3) PMR (polymyalgia rheumatica): - Continue home prednisone, 9 mg daily (4) GERD (gastroesophageal reflux disease): - Continue PPI -Pain did not improve with utilization of Rolaids this morning, do not suspect chest pain is GI in nature (5) Osteoarthritis: - Hold Celebrex this morning, give Toradol given chest pain (6) Type 2 diabetes mellitus: - Hold oral DM2 meds, convert to basal bolus with sliding scale insulin -Since patient is n.p.o., give half recommended Lantus dose at 10 units (7) Chronic diastolic CHF (congestive heart failure): - Continue beta-blockade, losartan -Hold Lasix as she only takes it once a week or with 3 pound weight gain -Be conservative with IV fluids (8) Fibromyalgia: - Noted, continue activity and pain medication as needed Plan Disposition: Discharge home with PCP follow-up Diet: Previous to admission CODE STATUS: Full code Total Time Total Time Spent Total Time Spent (In Minutes): 30 Discharge Plan Discharge Items Patient Disposition: Home - Self-Care Reason For Visit: CHEST PAIN Discharge Diagnosis: Chest Pain Activity: Per Instructions section Non-emergency contact: Primary Care Provider and Scientific Helper Call non-emergency contact if: you have any medication questions Follow-up/Referrals: Lucila Rojas MD [Primary Care Provider] - Diet: Regular Addtl Attending Provider Instructions: You were seen in the hospital for the concern of sudden onset left-sided chest pain. While you were here, we checked your cardiac enzymes which can help determine if you had a cardiac injury such as a heart attack. These enzymes we re negative throughout your hospitalization. Additionally, to rule out heart injury we performed a stress test to increase the oxygen demand to your heart and fortunately, it seems your heart was able to tolerate the increase in rate and did not show any evidence of damage/ischemia. For this reason, we do feel it is safe for you to be discharged home as we do not believe that the chest pain you are experiencing is cardiac related. I suspect that your chest pain is myofascial (muscular) in nature. There are small muscles in between the ribs that can equally be affected by polymyalgia rheumatica and fibromyalgia like any other muscle group. I suspect this because when I pushed on your chest, you had a sudden, sharp increase in your pain that improved once I removed the pressure. Unfortunately, both Toradol and morphine did not seem to improve your pain but it seems your tolerance to pain is quite good and I feel you be able to manage it better at home than in the hospital. Prior to your discharge, I gave you a lidocaine patch which hopefully will provide some relief. If your chest pain worsens, spreads to your neck or arm or you begin feeling more short of breath from your baseline, consider returning to the emergency department for reevaluation. There are no current medication changes at this time, however, cardiology did suggest utilization of a short acting antihypertensive called clonidine for when you get spikes of your blood pressure. Please discuss this with your primary care provider at follow-up which I recommend doing within the next week. Is been a pleasure to be part of your care and we wish you the best in both your health and recovery. For your home medications, please take your regular nighttime medications. Do not start your oral diabetic medications until tomorrow since we gave you insulin that should cover you into tomorrow for your blood sugar. Pending Studies at Discharge: No Stand-Alone Forms: My [facility], Smoking Cessation Medications and DC Order Prescriptions: Continued (DME) lancets [OneTouch Delica Lancets] 30 gauge misc See Rx Instructions .ROUTE .MEDSUPPLY Qty: 100 5RF Rx Instructions: As directed to test sugar 3 to 4 times daily Novolin 70/30 U-100 Insulin 100 unit/mL (70-30) suspension 100 unit SUBCUT BID 30 Days Qty: 60 11RF (DME) blood sugar diagnostic Strip See Rx Instructions .ROUTE .MEDSUPPLY Qty: 200 5RF Rx Instructions: Test blood sugar up to 6 times daily for insulin monitoring carvedilol 6.25 mg tablet 6.25 mg PO BID Qty: 180 3RF Rx Instructions: must administer with a meal/food (DME) insulin syringe-needle U-100 [BD Insulin Syringe Ultra-Fine] 1 mL 31 gauge x 5/16 syringe See Rx Instructions .Route Qty: 200 3RF Rx Instructions: use to inject insulin twice daily allopurinol 100 mg tablet 100 mg PO DAILY Qty: 90 3RF furosemide 40 mg tablet 40 mg PO .COMPLEX Qty: 15 2RF Rx Instructions: 40 mg orally once weekly or prn if more than 3 lb weight gain; losartan 50 mg tablet 50 mg PO BID Qty: 180 3RF metformin 500 mg tablet extended release 24 hr 500 mg PO BID Qty: 180 3RF amlodipine [Norvasc] 10 mg tablet 10 mg PO QPM Qty: 90 3RF aspirin [Adult Aspirin Regimen] 81 mg tablet,delayed release (DR/EC) 81 mg PO HS pantoprazole 40 mg tablet,delayed release (DR/EC) 40 mg PO DAILY Qty: 90 3RF Jardiance 10 mg tablet 10 mg PO DAILY Qty: 30 5RF chlorthalidone 25 mg tablet 25 mg PO DAILY Qty: 90 3RF oxybutynin chloride 10 mg tablet extended release 24hr 10 mg PO DAILY magnesium Tablet 1 tab PO DAILY celecoxib [Celebrex] 200 mg capsule 200 mg PO DAILY prednisone 5 mg tablet 9 mg PO DAILY Discharge Orders: Discharge Order (Routine); Ordered 03/10/23 Ordered By: Brandon Leong Admission Data Admit Date/Time: 03/10/23 10:24 Attending Provider: Forrest Hutchison Admit Provider: Forrest Hutchison Primary Care Provider: Lucila Rojas Other Providers: Forrest Hutchison Other Interventions: Discharge Summary Assessment (RN) Last Done: 03/10/23 17:04
[2023-03-10] MEDS ORDERED: carvediloL 6.25 MG TAB PO SCH (17:00)
--- NOTE | 2023-03-10 17:20 | Billing Data ---
Date of Service March 10, 2023 Coding Level of Care Code INP/OBS EV SAME DAY LV 3,85MIN
--- NOTE | 2023-03-10 17:47 | Electrocardiogram Report ---
Test Reason : Blood Pressure : / mmHG Vent. Rate : 081 BPM Atrial Rate : 081 BPM P-R Int : 158 ms QRS Dur : 120 ms QT Int : 376 ms P-R-T Axes : 026 -35 -10 degrees QTc Int : 436 ms Sinus rhythm with Premature supraventricular complexes Left axis deviation Right bundle branch block Minimal voltage criteria for LVH, may be normal variant ( R in aVL ) Abnormal ECG When compared with ECG of 31-OCT-2022 21:03, Premature supraventricular complexes are now Present Confirmed by Moe Rodriguez ([id number]) on 03/10/2023 5:46:46 PM Referred By: REFERRED SELF Confirmed By:Moe Rodriguez
--- NOTE | 2023-03-10 17:52 | Electrocardiogram Report ---
Test Reason : Blood Pressure : / mmHG Vent. Rate : 073 BPM Atrial Rate : 073 BPM P-R Int : 154 ms QRS Dur : 118 ms QT Int : 406 ms P-R-T Axes : 047 -28 -03 degrees QTc Int : 447 ms Sinus rhythm with Premature atrial complexes Possible Left atrial enlargement Right bundle branch block Left ventricular hypertrophy Abnormal ECG When compared with ECG of 10-MAR-2023 07:21, (unconfirmed) Right bundle branch block is no longer Present Confirmed by Moe Rodriguez ([id number]) on 03/10/2023 5:51:43 PM Referred By: REFERRED SELF Confirmed By:Moe Rodriguez
[2023-03-10] MEDS ORDERED: amLODIPine BESYLATE 5 MG TAB PO SCH (21:00)
[2023-03-10] MEDS ORDERED: ASPIRIN 81 MG ECTAB PO SCH (21:00)
[2023-03-10] MEDS ORDERED: HEPARIN SOD 5,000 UNIT/0.5 ML VIAL SQ SCH (21:00)
[2023-03-11] MEDS ORDERED: OXYBUTYNIN CHLORIDE XL 5 MG TABCR PO SCH (09:00)
== END 2023-03-10 17:04 | disposition home or self-care (01) ==
LOC: EDINP 07:15 → ED 07:15 → EDINP 12:51

== ENCOUNTER 2025-07-13 09:46 | Inpatient (IN) ==
[~2025-07-13 09:46] MED LIST changes: +APIXABAN 5 MG TABLET PO SCH; -INSULIN ASPART PER UNIT SC ONE
--- NOTE | 2025-07-13 10:22 | Emergency Department Note ---
Impression & Plan Atrial fibrillation with rapid ventricular response, Chest pain, Urinary tract infection ED Provider Note NAME: DARON NGUYEN AGE: 79 SEX: F : 1945 ARRIVES VIA: Walk-In INFORMANT: Patient, ED PROVIDER(S): Sidney Gomez DO CHIEF COMPLAINT: Palpitations HPI: The patient is a 79-year-old female who presented to the emergency department for an evaluation of palpitations. The patient states she had an acute onset of palpitations. She could feel her pulse into her neck. She also describes chest pain. She became very anxious. She came to the emergency department with her for further evaluation. The patient denies having any leg swelling or leg pain. She is currently on an antibiotic for urine infection. ROS: See above HPI for pertinent positives & negatives. A total of 10 systems reviewed and were otherwise negative. PAST MEDICAL HISTORY: See Below PAST SURGICAL HISTORY: See Below FAMILY HISTORY: See Below SOCIAL HISTORY: See Below HOME MEDICATIONS: See Below ALLERGIES: See Below VITALS: See Below PHYSICAL EXAMINATION: GENERAL: The patient is awake and alert. The patient is somewhat anxious. EYES: The conjunctivae are clear. The pupils are round and reactive. EARS, NOSE, MOUTH AND THROAT: The nose is without any evidence of any deformity. NECK: The neck is nontender and supple. RESPIRATORY: Normal respiratory effort is noted there is no evidence of wheezing rhonchi or rales CARDIOVASCULAR: Tachycardic and regular heart sounds were noted to auscultation. There is no definite murmur. GASTROINTESTINAL: The abdomen is soft. Abdomen is nontender. MUSCULOSKELETAL/EXTREMITIES: There is no evidence of gross deformity full range of motion is noted in the hips and shoulders. SKIN: The skin is warm and dry. Pedal edema was noted bilaterally but this was mild. NEUROLOGIC: Patient is awake alert and oriented x3 MEDICAL DECISION MAKING: The patient is a 79-year-old female who presented to the emergency department for an evaluation of palpitations and not feeling well. The patient had chest pain. The patient had near syncope. The patient also was found to have signs of urinary tract infection. She was treated with IV fluids IV calcium channel piedad as well as IV antibiotics emergency department. She was reevaluated multiple times. I discussed the patient's laboratory and radiographic studies with her. She does not have a history of atrial fibrillation that I could tell. Given her comorbidities I do feel the patient would be a better candidate for inpatient management. I discussed her condition with the on-call [facility] hospitalist. They have agreed to evaluate the patient in the emergency department for further management and disposition. Triage Nursing notes reviewed. Prior medical records reviewed Vital Signs: reviewed and remarkable for no significant abnormalities Differential diagnosis: Premature contractions, electrolyte abnormality, cardiac dysrhythmia, thyroid dysfunction, pulmonary embolism, infection, gastrointestinal, as well as other pathologies. ER treatment provided: See below Diagnostics interpreted by me: ECG: EKG was obtained in the emergency department. My interpretation is atrial fibrillation at 125 bpm. No PVCs were noted. Nonspecific ST abnormalities were noted with a right bundle branch block pattern. This was compared to a tracing from July 11, 2024. The right bundle branch block is not new however the atrial fibrillation is new onset. Cardiac Monitoring: An order was placed for continuous cardiac monitoring. The monitor shows a rate of 98 bpm with atrial fibrillation. Laboratory studies: As stated above and show below. Imaging studies: See below. Radiographic imaging was reviewed by myself Consultation(s): I discussed this case with Dr. Huynh who is on-call for the [facility] hospitalist group. Past Med/Surg History Problem List (Updated 07/13/25 @ 13:35 by Sidney Gomez DO) Urinary tract infection (Acute) Chest pain (Acute) Atrial fibrillation with rapid ventricular response (Acute) Recurrent UTI (urinary tract infection) (Chronic) Chronic pain Colonic stricture (Chronic) (HFpEF) heart failure with preserved ejection fraction (Chronic) Chronic venous insufficiency (Chronic) Dysphonia (Chronic) Morbid obesity (Chronic) Hypertension (Chronic) Restrictive lung disease secondary to obesity (Chronic) [facility] systemic steroid user (Chronic) Subclinical hypothyroidism (Chronic) Overactive bladder (Chronic) Fibromyalgia (Chronic) Iron deficiency anemia (Chronic) Spinal stenosis (Chronic) Bilateral tinnitus (Chronic) SNHL (sensorineural hearing loss) (Chronic) Type 2 diabetes mellitus (Chronic) Diverticulosis (Chronic) Osteoarthritis (Chronic) GERD (gastroesophageal reflux disease) (Chronic) Sleep apnea (Chronic) NO DEVICE "MILD" PMR (polymyalgia rheumatica) (Chronic) HTN (hypertension) (Chronic) Medical History Pulmonary nodules Transient ischemic attack (TIA) x 4 (2014, 2015, 2019, 2021) History of esophageal dilatation History of GI bleed ulcerated hemangioma resected 2019 Vocal cord mass hx, 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 Robert History of esophagogastroduodenoscopy (EGD) History of colonoscopy History of breast biopsy History of arthroscopy RT KNEE History of bilateral tubal ligation H/O lumpectomy RT X 2 S/P appendectomy H/O lithotripsy History of tooth extraction History of cardiac cath ~2009 -NO STENTS AT [facility] WITH DR. REGALADO Family History Grandmother Family history of diabetes mellitus Father Family history of diabetes mellitus Lung cancer smoker and diagnosed with "black lung" Lung disease Diabetes Cancer Mother MDP (myeloproliferative disorder) Family history of diabetes mellitus Glaucoma Hypertension Gall bladder disease Diabetes Cancer Unknown Leukemia Myocardial infarction Grandmother (Maternal) Diabetes Uncle Heart disease Other No family history of adverse response to anesthesia No family history of bleeding disorder Social History Smoking Status: Never smoker Second Hand Exposure: No; Do You Dip or Chew Tobacco: No; Hx Alcohol Use: No Hx Substance Use: No Preferred Language: Prydeinig Communication Ability: Effective Dietetic Technician Registered Required: No Beliefs That Will Affect Care: Uatsdin Uatsdin Beliefs: pt. states "i prefer to keep my underwear on" marital status: marital status details: No children Current Living Situation: Spouse current occupational status: retired current occupation: Retired Feels Safe at Home: Yes Childhood Exposure to Second-Hand Smoke: Yes Diet: regular caffeine: Yes Dental Care, Regularly: Yes Physical Activity Frequency: Does not Exercise Seatbelt Use: never Sunscreen Use: No Assistive Devices: Cane and Walker Allergies Allergies Allergy/AdvReac Type Severity Reaction Status Date / Time sulfamethoxazole [Bactrim] Allergy Intermediate hives Verified 05/03/25 11:39 trimethoprim [Bactrim] Allergy Intermediate hives Verified 05/03/25 11:39 ciprofloxacin Allergy Unknown hives Verified 05/03/25 11:39 Iodinated Contrast Media Allergy Unknown ANAPHYLAXIS Verified 05/03/25 11:39 /CONVULSION S metronidazole Allergy Unknown HIVES Verified 05/03/25 11:39 sumatriptan Allergy Unknown SOB,INCREASED Verified 05/03/25 11:39 HEARTRATE adhesive AdvReac Unknown SEVERE Verified 05/03/25 11:39 BURNING BLISTERS fluconazole AdvReac Unknown hyperkalemi Verified 05/03/25 11:39 a tramadol AdvReac Unknown FATIGUE Verified 05/03/25 11:39 Home Meds Home Medications Medication Instructions Recorded Confirmed aspirin 81 mg tablet,delayed 81 mg PO HS 02/27/20 07/13/25 release (Adult Aspirin Regimen) polyethylene glycol 3350 17 gram 17 g PO DAILY PRN Constipation 08/20/23 07/13/25 oral powder packet (Miralax) mecobalamin (vitamin B12) 1,000 1,000 mcg PO DAILY 05/03/25 07/13/25 mcg lozenges insulin regular hum U-500 conc 500 80 - 150 unit subcut BIDM 07/13/25 07/13/25 unit/mL(3 mL) subcut pen (Humulin R U-500 (Conc) Insulin Kwikpen) semaglutide 2 mg/dose (8 mg/3 mL) 2 mg subcut WK 07/13/25 07/13/25 subcutaneous pen injector Previous Rx's Medication Instructions Recorded potassium chloride 20 mEq 20 meq PO DAILY PRN diuretic use 11/05/23 tablet,extended release #90 tabs carvedilol 6.25 mg tablet 6.25 mg PO BID #180 tabs 06/23/24 chlorthalidone 25 mg tablet 25 mg PO DAILY #90 tabs 08/12/24 allopurinol 100 mg tablet 100 mg PO DAILY #90 tabs 09/05/24 bumetanide 1 mg tablet 1 mg PO DAILY PRN edema #90 tabs 11/18/24 losartan 50 mg tablet 50 mg PO BID #180 tabs 01/25/25 metformin 500 mg tablet,extended 500 mg PO BID #180 tabs 02/07/25 release 24 hr blood sugar diagnostic (OneTouch #100 ea 09/09/25 Ultra Test strips) amlodipine 10 mg tablet (Norvasc) 10 mg PO QPM #90 tabs 04/07/25 pantoprazole 40 mg tablet,delayed 40 mg PO BID #180 tabs 05/03/25 release prednisone 5 mg tablet 10 mg (2 x 5 mg) PO QAM #60 tabs 05/03/25 pen needle, diabetic 32 gauge x #100 ea 05/29/25" cholecalciferol (vitamin D3) 1,250 50,000 unit PO Q7D #12 caps 06/20/25 mcg (50,000 unit) capsule pregabalin 100 mg capsule (Lyrica) 100 mg PO HS #30 caps 07/04/25 pregabalin 75 mg capsule (Lyrica) 75 mg PO QAM #30 caps 07/04/25 buprenorphine 7.5 mcg/hour weekly 1 patch transdermal Q7D #4 ea 07/06/25 transdermal patch buprenorphine 10 mcg/hour weekly 1 patch transdermal Q7D 7 days #4 07/07/25 transdermal patch ea Results & Data (ED) Vital Signs Vital Signs - 24 hr 07/13/25 09:50 07/13/25 10:05 07/13/25 10:06 Temperature 36.3 C L Temperature Source Temporal Artery Scan Pulse Rate 118 H 113 H Pulse Rate from SpO2 Sensor 127 H Respiratory Rate 19 20 Respiratory Effort / Characteristics Spontaneous Short of Breath Respiratory Depth Normal Respiratory Pattern Regular Blood Pressure 130/74 163/85 H Blood Pressure Mean 92 111 Pulse Oximetry 95 95 Oxygen Delivery Method Room Air Room Air Room Air Sepsis Recent Fever Within 48 Hours No Sepsis New/Unexplained Change in Mental Status N/A Sepsis Action Taken by Nursing No Action Required 07/13/25 10:08 07/13/25 10:09 07/13/25 10:30 Temperature Temperature Source Pulse Rate 112 H 116 H Pulse Rate from SpO2 Sensor 111 H Respiratory Rate 18 Respiratory Effort / Characteristics Spontaneous Short of Breath Respiratory Depth Normal Respiratory Pattern Regular Blood Pressure 117/75 Blood Pressure Mean 89 Pulse Oximetry 92 Oxygen Delivery Method Room Air Room Air Sepsis Recent Fever Within 48 Hours Sepsis New/Unexplained Change in Mental Status Sepsis Action Taken by Nursing 07/13/25 10:43 07/13/25 11:00 07/13/25 11:06 Temperature Temperature Source Pulse Rate 97 H 89 Pulse Rate from SpO2 Sensor 101 H Respiratory Rate 20 21 Respiratory Effort / Characteristics Respiratory Depth Respiratory Pattern Blood Pressure 121/104 H 122/71 146/60 H Blood Pressure Mean 109 88 88 Pulse Oximetry 95 92 Oxygen Delivery Method Room Air Room Air Sepsis Recent Fever Within 48 Hours Sepsis New/Unexplained Change in Mental Status Sepsis Action Taken by Nursing 07/13/25 11:15 07/13/25 11:30 07/13/25 11:45 Temperature Temperature Source Pulse Rate 97 H 113 H 100 H Pulse Rate from SpO2 Sensor 86 118 H 93 H Respiratory Rate 20 19 22 Respiratory Effort / Characteristics Respiratory Depth Respiratory Pattern Blood Pressure 161/76 H 164/67 H 130/81 Blood Pressure Mean 104 99 97 Pulse Oximetry 92 91 90 Oxygen Delivery Method Room Air Room Air Room Air Sepsis Recent Fever Within 48 Hours Sepsis New/Unexplained Change in Mental Status Sepsis Action Taken by Nursing 07/13/25 12:00 07/13/25 12:15 Temperature Temperature Source Pulse Rate 110 H 99 H Pulse Rate from SpO2 Sensor 100 H 96 H Respiratory Rate 21 21 Respiratory Effort / Characteristics Respiratory Depth Respiratory Pattern Blood Pressure 146/113 H 176/91 H Blood Pressure Mean 124 119 Pulse Oximetry 92 92 Oxygen Delivery Method Room Air Room Air Sepsis Recent Fever Within 48 Hours Sepsis New/Unexplained Change in Mental Status Sepsis Action Taken by [facility] Medications Current Medication List: was personally reviewed by me Laboratory Data Attestation: I reviewed the patient's lab results. 07/13/25 10:36 07/13/25 10:36 Lab Results 07/13/25 07/13/25 07/13/25 Range/Units 10:23 10:36 11:45 WBC 12.14 H (4.8-10.8) K/ul RBC 5.10 (4.20-5.40) M/uL Hgb 14.0 (12.0-16.0) g/dL Hct 42.3 (37.0-47.0) % MCV 82.9 (80.0-100.0) fL MCH 27.5 (25.0-34.0) pg MCHC 33.1 (32.0-36.0) g/dL RDW Std Deviation 47.2 H (36.4-46.3) fL RDW Coeff of Guevara 15.6 H (11.5-14.5) % Plt Count 268 (130-400) K/uL MPV 11.5 (9.4-12.4) fL Immature Gran % (Auto) 1.2 % Neut % (Auto) 79.3 % Lymph % (Auto) 14.7 % [place] % (Auto) 3.8 % Eos % (Auto) 0.6 % Baso % (Auto) 0.4 % Neut # (Auto) 9.64 H (1.40-6.50) K/uL Lymph # (Auto) 1.78 (1.20-3.40) K/uL [place] # (Auto) 0.46 (0.11-0.59) K/uL Eos # (Auto) 0.07 (0.00-0.50) K/uL Baso # (Auto) 0.05 (0.00-0.20) K/uL Immature Gran # (Auto) 0.14 (0.01-0.20) K/uL PT 10.5 (9.0-12.0) Seconds INR 1.0 (0.9-1.1) APTT 26 (21-31) Seconds PTT Ratio 1.0 Sodium 137 (136-145) mmol/L Potassium 3.9 (3.5-5.1) mmol/L Chloride 98 (98-107) mmol/L Carbon Dioxide 30 (21-32) mmol/L Anion Gap 9 (3-11) BUN 25 H (6-23) mg/dl Creatinine 0.85 (0.6-1.2) mg/dl Est Cr Clr Drug Dosing 67.3 ml/min eGFR 69.65 BUN/Creatinine Ratio 29.4 H (10-20) Glucose 316 H* (70-99(Fasting)) mg/dl POC Glucose 272 H (70-99) mg/dl Calcium 9.4 (8.6-10.3) mg/dl Magnesium 1.9 (1.7-2.4) mg/dl Total Bilirubin 0.4 (0.2-1.0) mg/dl AST 16 (13-39) U/L ALT 27 (7-52) U/L Alkaline Phosphatase 53 (34-104) U/L Troponin I High Sens 8.9 (0-14) pg/ml Total Protein 7.5 (6.0-8.3) gm/dl Albumin 3.9 (3.4-5.0) gm/dl Globulin 3.6 (2.5-4.0) gm/dl Albumin/Globulin Ratio 1.1 (0.9-2) TSH 1.931 (0.300-4.500) uIu/ml Urine Color Yellow Urine Appearance Clear (Clear) Urine pH 7.0 (4.5-7.5) Ur Specific [place] 1.019 (1.000-1.030) Urine Protein 2+ H (Negative) Urine Glucose (UA) 3+ H (Negative) Urine Ketones 1+ H (Negative) Urine Blood Trace H (Negative) Urine Nitrite Negative (Negative) Urine Bilirubin Negative (Negative) Urine Urobilinogen Negative (Negative) Ur Leukocyte Esterase 1+ H (Negative) Urine WBC (Auto) >50 H (0-5) /hpf Urine RBC (Auto) 0-2 (0-2) /hpf U Hyaline Cast (Auto) 0-2 (0-2) /lpf U Epithel Cells (Auto) 0-2 (0-2) /hpf Urine Bacteria (Auto) 1+ H (None Seen) Urine Comment 07/13/25 Range/Units 12:22 WBC (4.8-10.8) K/ul RBC (4.20-5.40) M/uL Hgb (12.0-16.0) g/dL Hct (37.0-47.0) % MCV (80.0-100.0) fL MCH (25.0-34.0) pg MCHC (32.0-36.0) g/dL RDW Std Deviation (36.4-46.3) fL RDW Coeff of Guevara (11.5-14.5) % Plt Count (130-400) K/uL MPV (9.4-12.4) fL Immature Gran % (Auto) % Neut % (Auto) % Lymph % (Auto) % [place] % (Auto) % Eos % (Auto) % Baso % (Auto) % Neut # (Auto) (1.40-6.50) K/uL Lymph # (Auto) (1.20-3.40) K/uL [place] # (Auto) (0.11-0.59) K/uL Eos # (Auto) (0.00-0.50) K/uL Baso # (Auto) (0.00-0.20) K/uL Immature Gran # (Auto) (0.01-0.20) K/uL PT (9.0-12.0) Seconds INR (0.9-1.1) APTT (21-31) Seconds PTT Ratio Sodium (136-145) mmol/L Potassium (3.5-5.1) mmol/L Chloride (98-107) mmol/L Carbon Dioxide (21-32) mmol/L Anion Gap (3-11) BUN (6-23) mg/dl Creatinine (0.6-1.2) mg/dl Est Cr Clr Drug Dosing ml/min eGFR BUN/Creatinine Ratio (10-20) Glucose (70-99(Fasting)) mg/dl POC Glucose 240 H (70-99) mg/dl Calcium (8.6-10.3) mg/dl Magnesium (1.7-2.4) mg/dl Total Bilirubin (0.2-1.0) mg/dl AST (13-39) U/L ALT (7-52) U/L Alkaline Phosphatase (34-104) U/L Troponin I High Sens (0-14) pg/ml Total Protein (6.0-8.3) gm/dl Albumin (3.4-5.0) gm/dl Globulin (2.5-4.0) gm/dl Albumin/Globulin Ratio (0.9-2) TSH (0.300-4.500) uIu/ml Urine Color Urine Appearance (Clear) Urine pH (4.5-7.5) Ur Specific [place] (1.000-1.030) Urine Protein (Negative) Urine Glucose (UA) (Negative) Urine Ketones (Negative) Urine Blood (Negative) Urine Nitrite (Negative) Urine Bilirubin (Negative) Urine Urobilinogen (Negative) Ur Leukocyte Esterase (Negative) Urine WBC (Auto) (0-5) /hpf Urine RBC (Auto) (0-2) /hpf U Hyaline Cast (Auto) (0-2) /lpf U Epithel Cells (Auto) (0-2) /hpf Urine Bacteria (Auto) (None Seen) Urine Comment Administered Medications Magnesium Sulfate/Dextrose (Magnesium Sulfate / D5w) 1 gm in 100 mls @ 50 mls/hr IV ONE ONE Stop: 07/13/25 14:21 Last Admin: 07/13/25 12:30 Dose: 50 mls/hr Documented By: mbu Discontinued Medications Diltiazem HCl (Diltiazem Hcl 5 Mg/Ml 5 Ml Vial) 10 mg IV NOW STA Stop: 07/13/25 10:01 Last Admin: 07/13/25 10:43 Dose: 10 mg Documented By: lesvia Co-signed By: JO Sodium Chloride (Nss) 500 mls @ 999 mls/hr IV .Q31M STA Stop: 07/13/25 10:28 Last Infusion: 07/13/25 12:24 Dose: Infused Documented By: lesvia Admin: 07/13/25 10:44 Dose: 999 mls/hr Documented By: lesvia Ceftriaxone Sodium (Rocephin) 2,000 mg in 50 mls @ 100 mls/hr IV NOW STA Stop: 07/13/25 11:48 Last Infusion: 07/13/25 12:03 Dose: Infused Documented By: lesvia Admin: 07/13/25 11:30 Dose: 100 mls/hr Documented By: lesvia Insulin Human Regular (Novolin-R Insulin Per Unit Charge) 6 units IV NOW STA Stop: 07/13/25 11:40 Last Admin: 07/13/25 11:51 Dose: Not Given Documented By: lesvia Insulin Human Regular (Novolin-R Insulin Per Unit Charge) 4 units IV NOW STA Stop: 07/13/25 11:49 Last Admin: 07/13/25 11:57 Dose: 4 units Documented By: lesvia Co-signed By: KAYKAY Imaging Data Attestation: I personally reviewed and interpreted this imaging study as follows: My Impression: 1 view chest x-ray was obtained in the emergency department. My interpretation is no free air or definite infiltrate, final report below. Radiologist's Impression: Chest X-Ray 07/13/25 09:58 EXAM: Radiograph of the Chest 1 View INDICATION: Dysrhythmia TECHNIQUE: Frontal view of the chest. COMPARISON: 03/10/2023 FINDINGS: Lungs and pleural spaces: Shallow inspiration with chronic appearing interstitial thickening. No pulmonary edema or consolidation. Right diaphragmatic elevation. There is slight blunting of the right lateral costophrenic sulcus [place]ulissa scarring. No pneumothorax. Heart: Stable prominent shadow. Mediastinum: Normal contour. Bones/joints: No fracture, erosion or dislocation. Soft tissues: Calcifications in the right breast or right axilla unchanged. Upper abdomen: No abnormality noted. IMPRESSION: Chronic changes. No definite acute disease. ACT 112: N/A Electronically signed by Lydia Kate 07-13-2025 10:39 AM Discharge Plan Visit Data Chief Complaint: Arrhythmia/Palpitations Stated Complaint: ELEVATED HR ED Provider: Sidney Gomez Discharge Problem: Atrial fibrillation with rapid ventricular response, Chest pain, Urinary tract infection Patient Disposition: Being Evaluated by Hospitalist Condition: Fair Forms Stand Alone Forms: My [facility] Labs Prescriptions Prescriptions: No Action potassium chloride 20 mEq tablet extended release 20 meq PO DAILY PRN (Reason: diuretic use) Qty: 90 0RF Rx Instructions: Take 1 potassium pill each time you take a furosemide pill carvedilol 6.25 mg tablet 6.25 mg PO BID Qty: 180 3RF Rx Instructions: must administer with a meal/food chlorthalidone 25 mg tablet 25 mg PO DAILY Qty: 90 3RF allopurinol 100 mg tablet 100 mg PO DAILY Qty: 90 3RF bumetanide 1 mg tablet 1 mg PO DAILY PRN (Reason: edema) Qty: 90 1RF losartan 50 mg tablet 50 mg PO BID Qty: 180 3RF metformin 500 mg tablet extended release 24 hr 500 mg PO BID Qty: 180 3RF (DME) OneTouch Ultra Test Strip See Rx Instructions .Route Qty: 100 3RF Rx Instructions: test 3x day amlodipine [Norvasc] 10 mg tablet 10 mg PO QPM Qty: 90 3RF prednisone 5 mg tablet 10 mg PO QAM Qty: 60 2RF (DME) pen needle, diabetic 32 gauge x 5/32" needle See Rx Instructions .Route Qty: 100 5RF Rx Instructions: As directed to inject insulin 2 times a day cholecalciferol (vitamin D3) 1,250 mcg (50,000 unit) capsule 50,000 unit PO Q7D Qty: 12 1RF pregabalin [Lyrica] 75 mg capsule 75 mg PO QAM Qty: 30 5RF pregabalin [Lyrica] 100 mg capsule 100 mg PO HS Qty: 30 5RF buprenorphine 7.5 mcg/hour patch weekly 1 patch transdermal Q7D Qty: 4 1RF buprenorphine 10 mcg/hour patch weekly 1 patch transdermal Q7D 7 Days Qty: 4 1RF aspirin [Adult Aspirin Regimen] 81 mg tablet,delayed release (DR/EC) 81 mg PO HS polyethylene glycol 3350 [Miralax] 17 gram powder in packet 17 g PO DAILY PRN (Reason: Constipation) mecobalamin (vitamin B12) 1,000 mcg lozenge 1,000 mcg PO DAILY Rx Instructions: allow to dissolve in mouth OR may chew lightly before swallowing pantoprazole 40 mg tablet,delayed release (DR/EC) 40 mg PO BID Qty: 180 0RF Humulin R U-500 (Conc) Kwikpen 500 unit/mL (3 mL) insulin pen 80 - 150 unit subcut BIDM Rx Instructions: 80-150 units SC twice daily as directed before meals semaglutide 2 mg/dose (8 mg/3 mL) pen injector 2 mg subcut WK Rx Instructions: Inject 2 mg once weekly Referrals Referrals: Lucila Rojas MD [Primary Care Provider] -
--- NOTE | 2025-07-13 10:40 | XRay Report ---
EXAM: Radiograph of the Chest 1 View INDICATION: Dysrhythmia TECHNIQUE: Frontal view of the chest. COMPARISON: 03/10/2023 FINDINGS: Lungs and pleural spaces: Shallow inspiration with chronic appearing interstitial thickening. No pulmonary edema or consolidation. Right diaphragmatic elevation. There is slight blunting of the right lateral costophrenic sulcus [place] scarring. No pneumothorax. Heart: Stable prominent shadow. Mediastinum: Normal contour. Bones/joints: No fracture, erosion or dislocation. Soft tissues: Calcifications in the right breast or right axilla unchanged. Upper abdomen: No abnormality noted. IMPRESSION: Chronic changes. No definite acute disease. ACT 112: N/A Electronically signed by Lydia Kate 07-13-2025 10:39 AM
[2025-07-13 10:41] LABS: Appearance Urine Clear (Clear); Bacteria Urine Automated 1+ (None Seen); Cast Urine Automated 0-2 /lpf (0-2); Epithelial Cell Urine Auto 0-2 /hpf (0-2); Glucose Urine UA 3+ (Negative); RBC Urine Automated 0-2 /hpf (0-2); WBC Urine Automated >50 /hpf (0-5)
[2025-07-13] MEDS: SODIUM CHLORIDE 0.9% 500 ML IV STA (10:44)
[2025-07-13 11:08] LABS: Hematocrit (blood only) 42.3 % (37.0-47.0); Hemoglobin 14.0 g/dL (12.0-16.0); Immature Granulocytes # (auto) 0.14 K/uL (0.01-0.20); Immature Granulocytes % (auto) 1.2 %; Mean Corpuscular Hemoglobin 27.5 pg (25.0-34.0); Mean Corpuscular Volume 82.9 fL (80.0-100.0); Platelet Count 268 K/uL (130-400); RDW Standard Deviation 47.2 fL (36.4-46.3); Red Blood Count 5.10 M/uL (4.20-5.40); White Blood Count 12.14 K/ul (4.8-10.8)
[2025-07-13] MEDS: cefTRIAXone SODIUM 2,000 MG/50 ML BAG IV STA (11:30)
[2025-07-13 11:38] LABS: Alanine Aminotransferase 27.0 U/L (7-52); Albumin Globulin Ratio 1.1 (0.9-2); Albumin Level 3.9 gm/dl (3.4-5.0); Alkaline Phosphatase 53.0 U/L (34-104); Anion Gap 9.0 (3-11); Bilirubin,Total 0.4 mg/dl (0.2-1.0); Blood Urea Nitrogen 25.0 mg/dl (6-23); Calcium 9.4 mg/dl (8.6-10.3); Carbon Dioxide 30.0 mmol/L (21-32); Chloride 98.0 mmol/L (98-107); Creatinine Clr Calc Pharmacy 67.3 ml/min; Globulin 3.6 gm/dl (2.5-4.0); Glucose 316.0 mg/dl (70-99(Fasting)); INR 1.0 (0.9-1.1); Magnesium 1.9 mg/dl (1.7-2.4); Partial Thromboplastin Time 26 Seconds (21-31); Potassium 3.9 mmol/L (3.5-5.1); Prothrombin Time 10.5 Seconds (9.0-12.0); Sodium 137.0 mmol/L (136-145); Total Protein 7.5 gm/dl (6.0-8.3)
[2025-07-13] MEDS: NovoLIN-R INSULIN PER UNIT CHARGE IV STA ×2 (11:51→11:57)
--- NOTE | 2025-07-13 12:20 | History & Physical Report ---
Date of Service July 13, 2025 Assessment & Plan (1) Atrial fibrillation with rapid ventricular response: (2) Recurrent UTI (urinary tract infection): (3) Hypertension: (4) Type 2 diabetes mellitus: Plan This patient is a 79-year-old female with a history of breast cancer, chronic right breast wound from fat necrosis, DM 2, chronic back pain and fibromyalgia on Butrans patch, GERD/GIB, HTN, chronic HFpEF, chronic venous insufficiency, subclinical hypothyroidism, iron deficiency anemia, PMR on chronic prednisone, restrictive lung disease secondary to obesity, uric acid nephrolithiasis, recurrent UTI, LYNDA not on CPAP, thyroid goiter, colonic stricture, and TIA x2, who presents with heart palpitations, shortness of breath, and chest discomfort. She will be admitted for new onset atrial fibrillation with RVR and elevated troponin likely from myocardial demand ischemia. #Paroxysmal atrial fibrillation with RVR/chest pain/myocardial demand ischemia- with new onset atrial fibrillation with rates in the 120s, symptomatic. With chest pressure but no ischemic changes on ECG and initial troponin normal at 8.9 and then angelica to 20. She had a normal dobutamine stress echo in 02/2023. She has a history of atypical chest pains and follows with cardiology. [id number] score is 9 indicating 17.4% risk per year of stroke/TIA/systemic embolism. Anticoagulation is indicated. Her typical resting heart rate is usually in the 60s or 70s but sometimes into the 40s and 50s as per her pulse ox at home. She does report having heart palpitations similar to this but not lasting nearly as long at least once a day-she may have been having paroxysmal atrial fibrillation prior to the day of admission - Admit to PCU for arrhythmia monitoring - Increase carvedilol to 9.375 mg p.o. twice daily for rate control and give IV Lopressor as needed - Start Eliquis 5 mg p.o. twice daily for anticoagulation-Will need palma check with case management prior to discharge but can at least get the first 30 days for free coupon card - Follow BMP, magnesium and keep electrolytes optimal (K+ at 4.0, Mg at 2.0)- give 1 g IV magnesium sulfate, 20 mEq p.o. KCl on admission - Follow CBC while on anticoagulation given previous history of suspected occult GI bleeding many years ago - Check echo - Consult cardiology #HTN/chronic HFpEF/chronic venous insufficiency-BP is uncontrolled, appears euvolemic with chronic lower extremity edema from venous insufficiency. - Titrate up on carvedilol for rate control with atrial fibrillation but also for improved BP control - Hold home amlodipine in case of need for further diltiazem for rate control - Continue home losartan, chlorthalidone #Recurrent UTI/uric acid nephrolithiasis-recently took fosfomycin x 3 doses as an outpatient for recurrent UTI, follows with urology. Has been continuing to have urinary urgency and frequency without dysuria. No fevers or chills. WBC count mildly elevated at 12 but is on chronic prednisone. UA here is abnormal. Takes allopurinol for uric acid nephrolithiasis prevention. Was given a dose of IV ceftriaxone in the ED but most recent urine culture with Klebsiella aerogenes resistant to ceftriaxone. Discussed with pharmacist-initially, patient was going to go home from the ED and she was given a one-time dose of IV gentamicin as there were no other options given her allergies to sulfa and fluoroquinolone. Recent renal ultrasound with evidence of medical renal disease but no obstruction or bladder abnormalities. - Continue IV cefepime - Received one-time dose of IV gentamicin in the ED which could act as mon otherapy if sensitive on culture - Follow urine culture and adjust antibiotics as needed #DM2 with hyperglycemia-with blood glucose in the 300s on arrival likely due to stress. On chronic steroids. Diabetes is uncontrolled with last Hgb A1c 9.1% in 04/2025. Was given IV insulin for units regular in the ED. Is on semaglutide and working on weight loss. Also was on metformin and Humulin U-500 very high doses at home - Continue basal and bolus insulin while inpatient with Lantus 40 units twice daily and NovoLog range 100-140, CF 20, CR 12 - Hold home metformin and semaglutide - BSG's AC and at bedtime - Check HgbA1c in the a.m. #Chronic back pain/fibromyalgia/chronic opioid use/PMR on chronic prednisone-no acute issues - Continue home Butrans patch, Lyrica, prednisone 10 mg daily-no need for stress dose steroids #GERD-no acute issues, on chronic prednisone. Last EGD 5 years ago with gastritis - Continue PPI twice daily #Restrictive lung disease/obesity BMI 41.5-her weight is down 8 kg in the last 9 months as she has been on Ozempic -Continue Ozempic on discharge #LYNDA not on CPAP-reportedly mild in the past and did not need CPAP - Consider repeat evaluation in light of new onset A-fib #History of TIA-no acute issues - Continue aspirin - Not on statin-unclear reason - Needs improved blood pressure control DVT prophylaxis-Eliquis Disposition-admit to PCU History of Present Illness Chief Complaint: Heart palpitations Primary Care Provider: Lucila Rojas MD This patient is a 79-year-old female with a history of breast cancer, chronic right breast wound from fat necrosis, DM 2, chronic back pain and fibromyalgia on Butrans patch, GERD/GIB, HTN, chronic HFpEF, chronic venous insufficiency, subclinical hypothyroidism, iron deficiency anemia, PMR on chronic prednisone, restrictive lung disease secondary to obesity, uric acid nephrolithiasis, recurrent UTI, LYNDA not on CPAP, thyroid goiter, colonic stricture, and TIA x2, who presents with heart palpitations and chest discomfort. The heart palpit ations came on acutely and she felt her pulse up into her neck. She also had some very subtle chest pain which felt similar to previous episodes of chest pain she has had in the past. She also felt short of breath with the heart palpitations. She checked her heart rate on her pulse ox at home and it was as high as the 150s on the way here but mostly in the 100s-120s. Denies any leg swelling or leg pain. It made her very anxious and she came to the ED for further evaluation. She reports recurrent UTIs and currently has been having significant urinary urgency, frequency after taking fosfomycin x 3 doses about 2 weeks ago with not much improvement. She was found to be in rapid atrial fibrillation with heart rates in the 120s. She was given a dose of IV diltiazem as well as IV fluids and IV insulin for hyperglycemia. Her heart rates did improve to the 100s after these interventions. Troponin was initially 8, and repeat 3 hours later was up to 20. The patient converted to normal sinus rhythm spontaneously shortly after I admitted her, and initially she wanted to go home, but given elevated troponin, she will be admitted overnight for observation. She will be admitted for new onset atrial fibrillation with RVR. Allergies Allergy/AdvReac Type Severity Reaction Status Date / Time sulfamethoxazole [Bactrim] Allergy Intermediate hives Verified 05/03/25 11:39 trimethoprim [Bactrim] Allergy Intermediate hives Verified 05/03/25 11:39 ciprofloxacin Allergy Unknown hives Verified 05/03/25 11:39 Iodinated Contrast Media Allergy Unknown ANAPHYLAXIS Verified 05/03/25 11:39 /CONVULSION S metronidazole Allergy Unknown HIVES Verified 05/03/25 11:39 sumatriptan Allergy Unknown SOB,INCREASED Verified 05/03/25 11:39 HEARTRATE adhesive AdvReac Unknown SEVERE Verified 05/03/25 11:39 BURNING BLISTERS fluconazole AdvReac Unknown hyperkalemi Verified 05/03/25 11:39 a tramadol AdvReac Unknown FATIGUE Verified 05/03/25 11:39 Home Medications Medication Instructions Recorded Confirmed Type aspirin 81 mg tablet,delayed 81 mg PO HS 02/27/20 07/13/25 History release (Adult Aspirin Regimen) polyethylene glycol 3350 17 gram 17 g PO DAILY PRN Constipation 08/20/23 07/13/25 History oral powder packet (Miralax) potassium chloride 20 mEq 20 meq PO DAILY PRN diuretic use 11/05/23 07/13/25 Rx tablet,extended release #90 tabs carvedilol 6.25 mg tablet 6.25 mg PO BID #180 tabs 06/23/24 07/13/25 Rx chlorthalidone 25 mg tablet 25 mg PO DAILY #90 tabs 08/12/24 07/13/25 Rx allopurinol 100 mg tablet 100 mg PO DAILY #90 tabs 09/05/24 07/13/25 Rx bumetanide 1 mg tablet 1 mg PO DAILY PRN edema #90 tabs 11/18/24 07/13/25 Rx losartan 50 mg tablet 50 mg PO BID #180 tabs 01/25/25 07/13/25 Rx metformin 500 mg tablet,extended 500 mg PO BID #180 tabs 02/07/25 07/13/25 Rx release 24 hr blood sugar diagnostic (OneTouch #100 ea 03/28/25 05/03/25 Rx Ultra Test strips) amlodipine 10 mg tablet (Norvasc) 10 mg PO QPM #90 tabs 04/07/25 07/13/25 Rx mecobalamin (vitamin B12) 1,000 1,000 mcg PO DAILY 05/03/25 07/13/25 History mcg lozenges pantoprazole 40 mg tablet,delayed 40 mg PO BID #180 tabs 05/03/25 07/13/25 Rx release prednisone 5 mg tablet 10 mg (2 x 5 mg) PO QAM #60 tabs 05/03/25 07/13/25 Rx pen needle, diabetic 32 gauge x #100 ea 05/29/25 Rx " cholecalciferol (vitamin D3) 1,250 50,000 unit PO Q7D #12 caps 06/20/25 07/13/25 Rx mcg (50,000 unit) capsule pregabalin 100 mg capsule (Lyrica) 100 mg PO HS #30 caps 07/04/25 07/13/25 Rx pregabalin 75 mg capsule (Lyrica) 75 mg PO QAM #30 caps 07/04/25 07/13/25 Rx buprenorphine 10 mcg/hour weekly 1 patch transdermal Q7D 7 days #4 07/07/25 07/13/25 Rx transdermal patch ea insulin regular hum U-500 conc 500 80 - 150 unit subcut BIDM 07/13/25 07/13/25 History unit/mL(3 mL) subcut pen (Humulin R U-500 (Conc) Insulin Kwikpen) semaglutide 2 mg/dose (8 mg/3 mL) 2 mg subcut WK 07/13/25 07/13/25 History subcutaneous pen injector Past Med/Surg History Problem List (Updated 07/13/25 @ 13:35 by Sidney Gomez DO) Urinary tract infection (Acute) Chest pain (Acute) Atrial fibrillation with rapid ventricular response (Acute) Recurrent UTI (urinary tract infection) (Chronic) Chronic pain Colonic stricture (Chronic) (HFpEF) heart failure with preserved ejection fraction (Chronic) Chronic venous insufficiency (Chronic) Dysphonia (Chronic) Morbid obesity (Chronic) Hypertension (Chronic) Restrictive lung disease secondary to obesity (Chronic) 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) Subclinical hypothyroidism (Chronic) Overactive bladder (Chronic) Fibromyalgia (Chronic) Iron deficiency anemia (Chronic) Spinal stenosis (Chronic) Bilateral tinnitus (Chronic) SNHL (sensorineural hearing loss) (Chronic) Type 2 diabetes mellitus (Chronic) Diverticulosis (Chronic) Osteoarthritis (Chronic) GERD (gastroesophageal reflux disease) (Chronic) Sleep apnea (Chronic) NO DEVICE "MILD" PMR (polymyalgia rheumatica) (Chronic) HTN (hypertension) (Chronic) Medical History Pulmonary nodules Transient ischemic attack (TIA) x 4 (2014, 2015, 2019, 2021) History of esophageal dilatation History of GI bleed ulcerated hemangioma resected 2019 Vocal cord mass hx, 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 Robert History of esophagogastroduodenoscopy (EGD) History of colonoscopy History of breast biopsy History of arthroscopy RT KNEE History of bilateral tubal ligation H/O lumpectomy RT X 2 S/P appendectomy H/O lithotripsy History of tooth extraction History of cardiac cath ~2009 -NO STENTS AT [facility] WITH DR. REGALADO Family History Grandmother Family history of diabetes mellitus Father Family history of diabetes mellitus Lung cancer smoker and diagnosed with "black lung" Lung disease Diabetes Cancer Mother MDP (myeloproliferative disorder) Family history of diabetes mellitus Glaucoma Hypertension Gall bladder disease Diabetes Cancer Unknown Leukemia Myocardial infarction Grandmother (Maternal) Diabetes Uncle Heart disease Other No family history of adverse response to anesthesia No family history of bleeding disorder Social History Smoking Status: Never smoker Second Hand Exposure: No; Do You Dip or Chew Tobacco: No; Hx Alcohol Use: No Hx Substance Use: No Preferred Language: Greek Communication Ability: Effective Bartender Required: No Beliefs That Will Affect Care: Jehovah'S Witness Jehovah'S Witness Beliefs: pt. states "i prefer to keep my underwear on" marital status: marital status details: No children Current Living Situation: Spouse current occupational status: retired current occupation: Retired Feels Safe at Home: Yes Childhood Exposure to Second-Hand Smoke: Yes Diet: regular caffeine: Yes Dental Care, Regularly: Yes Physical Activity Frequency: Does not Exercise Seatbelt Use: never Sunscreen Use: No Assistive Devices: Cane and Walker Review of Systems Review of Systems: All systems reviewed & are unremarkable except as noted in HPI & below Physical Exam Constitutional: WD/WN, vitals as above Eyes: PERRL, conjunctivae normal, anicteric sclerae ENMT: external ear and nose normal, oropharynx normal Neck: trachea midline, no thyromegaly Respiratory: normal respiratory effort, lungs clear to auscultation Cardiovascular: Rate/Rhythm: regular rate and regular rhythm Heart Sounds: no murmur Extremities: + edema (Trace leg edema bilaterally) Chest (Breasts): Chest: normal inspection of chest Gastrointestinal (Abdomen): normal bowel sounds, soft, nontender, no hepatosplenomegaly Musculoskeletal: Extremities: extremities normal to inspection; no cyanosis and no clubbing Skin: no rashes, warm and dry Neurologic: moves all extremities and awake; no focal motor deficits Psychiatric: A+Ox3, euthymic affect Results & Data Results & Data Vital Signs (Past 12 Hours) Vital Signs Temp Pulse Resp BP Pulse Ox O2 Del Method 07/13/25 11:00 97 H 20 122/71 95 Room Air 07/13/25 10:43 121/104 H 07/13/25 10:30 116 H 18 117/75 92 Room Air 07/13/25 10:09 Room Air 07/13/25 10:08 112 H 07/13/25 10:06 113 H 20 163/85 H 95 Room Air 07/13/25 10:05 Room Air 07/13/25 09:50 36.3 C L 118 H 19 130/74 95 Room Air Laboratory Results CBC, PT/PTT/INR, BMP, troponin x 2, magnesium, LFTs, TSH, UA reviewed Diagnostic Findings CXR image personally reviewed by me and agree with the following report: Chest X-Ray 07/13/25 09:58 EXAM: Radiograph of the Chest 1 View INDICATION: Dysrhythmia TECHNIQUE: Frontal view of the chest. COMPARISON: 03/10/2023 FINDINGS: Lungs and pleural spaces: Shallow inspiration with chronic appearing interstitial thickening. No pulmonary edema or consolidation. Right diaphragmatic elevation. There is slight blunting of the right lateral costophrenic sulcus [place] scarring. No pneumothorax. Heart: Stable prominent shadow. Mediastinum: Normal contour. Bones/joints: No fracture, erosion or dislocation. Soft tissues: Calcifications in the right breast or right axilla unchanged. Upper abdomen: No abnormality noted. IMPRESSION: Chronic changes. No definite acute disease. ACT 112: N/A Electronically signed by Lydia Kate 07-13-2025 10:39 AM ECG Additional Comments: ECG not in the computer but paper ECG reviewed shows rapid A-fib without acute ischemic changes Code Status & VTE Plan Code Status Full code VTE Prophylaxis Plan VTE Prophylaxis will be ordered: Yes PG Care Time/CCT Total # of Minutes Spent Total Time Spent with Patient: Total time spent is greater than 50% in coordination of care (as documented) at patient's floor/unit and/or counseling patient: Coding Level of Care Code 97627 INT INP/OBS CARE 3/75MIN Diagnoses Atrial fibrillation with rapid ventricular response I48.91 Recurrent UTI (urinary tract infection) N39.0 Hypertension I10 Hypertension type: unspecified Type 2 diabetes mellitus E11.9 Diabetes mellitus complication status: without complication Diabetes mellitus chcf insulin use: without chcf use (3) Hypertension Hypertension type: unspecified Qualified Code(s): I10 - Essential (primary) hypertension (4) Type 2 diabetes mellitus Diabetes mellitus complication status: without complication Diabetes mellitus termination clerk insulin use: without termination clerk use Qualified Code(s): E11.9 - Type 2 diabetes mellitus without complications
[2025-07-13] MEDS: MAGNESIUM SULFATE / D5W 1 GM/100 ML BAG IV ONE (12:30)
[2025-07-13 12:31] LABS: Thyroid Stimulating Hormone 1.931 uIu/ml (0.300-4.500)
[2025-07-13] MEDS: POTASSIUM CHLORIDE CRTAB 20 MEQ TABCR PO STA (13:38)
[2025-07-13] MEDS: APIXABAN 5 MG TABLET PO ONE (14:19)
[2025-07-13] MEDS: GENTAMICIN SULFATE 400 MG in DEXTROSE 5% 100 ML IV ONE (14:56)
[2025-07-13] MEDS ORDERED: CARBOHYDRATES FOR HYPOGLYCEMIA PO PRN (18:39)
[2025-07-13] MEDS ORDERED: GLUCOSE 40% GEL 15 GM TUBE PO PRN (18:39)
[2025-07-13] MEDS ORDERED: GLUCOSE 10 TAB/TUBE PO PRN (18:39)
[2025-07-13] MEDS ORDERED: METOPROLOL TARTRATE 1 MG/ML VIAL IV PRN (18:39)
[2025-07-13] MEDS ORDERED: ONDANSETRON INJ 2 MG/ML 2 ML VIAL IV PRN (18:39)
[2025-07-13] MEDS ORDERED: DEXTROSE 50% 50 ML SYRINGE IV PRN (18:39)
[2025-07-13] MEDS ORDERED: GLUCAGON FOR INJ 1 MG VIAL SQ PRN (18:39)
[2025-07-13] MEDS: CEFEPIME 2000MG 2,000 MG/20 ML SYR IV SCH (20:00)
[2025-07-13] MEDS: ACETAMINOPHEN 325 MG TAB PO PRN (20:00)
[2025-07-13] MEDS: ASPIRIN 81 MG ECTAB PO SCH (20:02)
[2025-07-13] MEDS: LOSARTAN POTASSIUM 50 MG TAB PO SCH (20:02)
[2025-07-13] MEDS: LANTUS PER UNIT CHARGE SQ SCH (20:16)
[2025-07-13] MEDS: INSULIN ASPART PER UNIT CHARGE SC SCH (20:16)
[2025-07-13] MEDS: PREGABALIN 100 MG CAP PO SCH (20:31)
[2025-07-13] MEDS ORDERED: REMOVE & WASTE BUTRANS PATCH 1 EA EA SCH (20:59)
[2025-07-13] MEDS ORDERED: BUPRENORPHINE 10 MCG/HR TDSY TD SCH (21:00)
[2025-07-14] MEDS: CHECK BUPRENORPHINE PATCH SCH (00:28)
[2025-07-14 06:40] LABS: Hematocrit (blood only) 40.1 % (37.0-47.0); Hemoglobin 12.8 g/dL (12.0-16.0); Immature Granulocytes # (auto) 0.16 K/uL (0.01-0.20); Immature Granulocytes % (auto) 1.2 %; Mean Corpuscular Hemoglobin 26.7 pg (25.0-34.0); Mean Corpuscular Volume 83.7 fL (80.0-100.0); Platelet Count 257 K/uL (130-400); RDW Standard Deviation 48.2 fL (36.4-46.3); Red Blood Count 4.79 M/uL (4.20-5.40); White Blood Count 13.02 K/ul (4.8-10.8)
[2025-07-14 07:07] LABS: Anion Gap 9.0 (3-11); Blood Urea Nitrogen 32.0 mg/dl (6-23); Calcium 8.5 mg/dl (8.6-10.3); Carbon Dioxide 26.0 mmol/L (21-32); Chloride 102.0 mmol/L (98-107); Creatinine Clr Calc Pharmacy 46.1 ml/min; Glucose 259.0 mg/dl (70-99(Fasting)); Magnesium 2.1 mg/dl (1.7-2.4); Potassium 4.0 mmol/L (3.5-5.1); Sodium 137.0 mmol/L (136-145)
[2025-07-14] MEDS: INSULIN ASPART PER UNIT CHARGE SC SCH (07:42)
[2025-07-14] MEDS: APIXABAN 5 MG TABLET PO SCH (07:44)
[2025-07-14] MEDS: CYANOCOBALAMIN (B-12) 500 MCG TABLET PO SCH (07:45)
[2025-07-14] MEDS: ERGOCALCIFEROL 1250 MCG (50,000 UNITS) CAP PO SCH (07:45)
[2025-07-14] MEDS: CHLORTHALIDONE 25 MG TAB PO SCH (07:45)
[2025-07-14 07:49] LABS: Hemoglobin A1C 9.2 % (4.5-5.6)
[2025-07-14] MEDS: PREGABALIN 75 MG CAP PO SCH (08:55)
--- NOTE | 2025-07-14 10:52 | XCELERA ---
[id number] \\[id number]
--- NOTE | 2025-07-14 10:57 | Cardiology Consultation ---
Date of Consultation July 14, 2025 Assessment & Plan (1) Atrial fibrillation with rapid ventricular response: (2) Mitral stenosis: Plan 1. Atrial fibrillation: No known prior atrial fibrillation although she does report some palpitations at times. It is possible she has been having some brief episodes leading up to her diagnosis yesterday. She did have some symptoms associated with atrial fibrillation likely due to elevated ventricular rates. Etiology of her atrial fibrillation is likely valvular heart disease, left ventricular hypertrophy and age. She is started on higher dose of carvedilol and anticoagulation was also started. I think she could be safely discharged on carvedilol 12.5 mg twice daily. Will obtain some outpatient monitoring primarily to evaluate her other "palpitations" and relative heart rates. 2. Mitral stenosis: Mild. This can be followed over time. Continue anticoagulation with Eliquis. From a cardiac standpoint, aspirin can be discontinued now that she will be on Eliquis. Unclear if there is a benefit from a neurologic standpoint given her history of frequent "TIAs" History of Present Illness Reason for Consultation: Atrial fibrillation Requesting Physician: Amina Attending Physician: Srinivas Pastor MD History of Present Illness The patient is a 79-year-old woman with a history of heart failure with preserved ejection fraction, chronic dyspnea and pain related to polymyalgia rheumatica as well as fibromyalgia. Yesterday she noted the onset of palpitations. This was associated with a sense of mild dyspnea and pressure in her throat. She has had some palpitations in the past. In fact, she states that almost on a daily basis she will have some brief episodes of palpitations and generally last less than a minute. No associated symptoms. Yesterday's episode was more severe and sustained and she elected to come to the hospital for evaluation. She states that there was no particular intervention which relieved her symptoms but gradually after approximately an hour in the hospital her symptoms resolved and she has not had any recurrence. On a daily basis she is limited by significant pain. She ambulates with a walker. She has an element of dyspnea which is chronic in nature. Not worse recently. She reports frequent "TIAs". The seem to be brief neurologic events that last a minute or 2. Allergies Allergy/AdvReac Type Severity Reaction Status Date / Time sulfamethoxazole [Bactrim] Allergy Intermediate hives Verified 05/03/25 11:39 trimethoprim [Bactrim] Allergy Intermediate hives Verified 05/03/25 11:39 ciprofloxacin Allergy Unknown hives Verified 05/03/25 11:39 Iodinated Contrast Media Allergy Unknown ANAPHYLAXIS Verified 05/03/25 11:39 /CONVULSION S metronidazole Allergy Unknown HIVES Verified 05/03/25 11:39 sumatriptan Allergy Unknown SOB,INCREASED Verified 05/03/25 11:39 HEARTRATE adhesive AdvReac Unknown SEVERE Verified 05/03/25 11:39 BURNING BLISTERS fluconazole AdvReac Unknown hyperkalemi Verified 05/03/25 11:39 a tramadol AdvReac Unknown FATIGUE Verified 05/03/25 11:39 Home Medications Medication Instructions Recorded Confirmed Type aspirin 81 mg tablet,delayed 81 mg PO HS 02/27/20 07/13/25 History release (Adult Aspirin Regimen) polyethylene glycol 3350 17 gram 17 g PO DAILY PRN Constipation 08/20/23 07/13/25 History oral powder packet (Miralax) potassium chloride 20 mEq 20 meq PO DAILY PRN diuretic use 11/05/23 07/13/25 Rx tablet,extended release #90 tabs carvedilol 6.25 mg tablet 6.25 mg PO BID #180 tabs 06/23/24 07/13/25 Rx chlorthalidone 25 mg tablet 25 mg PO DAILY #90 tabs 08/12/24 07/13/25 Rx allopurinol 100 mg tablet 100 mg PO DAILY #90 tabs 09/05/24 07/13/25 Rx losartan 50 mg tablet 50 mg PO BID #180 tabs 01/25/25 07/13/25 Rx metformin 500 mg tablet,extended 500 mg PO BID #180 tabs 02/07/25 07/13/25 Rx release 24 hr blood sugar diagnostic (OneTouch #100 ea 03/28/25 05/03/25 Rx Ultra Test strips) amlodipine 10 mg tablet (Norvasc) 10 mg PO QPM #90 tabs 04/07/25 07/13/25 Rx mecobalamin (vitamin B12) 1,000 1,000 mcg PO DAILY 05/03/25 07/13/25 History mcg lozenges pantoprazole 40 mg tablet,delayed 40 mg PO BID #180 tabs 05/03/25 07/13/25 Rx release prednisone 5 mg tablet 10 mg (2 x 5 mg) PO QAM #60 tabs 05/03/25 07/13/25 Rx pen needle, diabetic 32 gauge x #100 ea 05/29/25 Rx " cholecalciferol (vitamin D3) 1,250 50,000 unit PO Q7D #12 caps 06/20/25 07/13/25 Rx mcg (50,000 unit) capsule pregabalin 100 mg capsule (Lyrica) 100 mg PO HS #30 caps 07/04/25 07/13/25 Rx pregabalin 75 mg capsule (Lyrica) 75 mg PO QAM #30 caps 07/04/25 07/13/25 Rx buprenorphine 10 mcg/hour weekly 1 patch transdermal Q7D 7 days #4 07/07/25 07/13/25 Rx transdermal patch ea insulin regular hum U-500 conc 500 80 - 150 unit subcut BIDM 07/13/25 07/13/25 History unit/mL(3 mL) subcut pen (Humulin R U-500 (Conc) Insulin Kwikpen) semaglutide 2 mg/dose (8 mg/3 mL) 2 mg subcut WK 07/13/25 07/13/25 History subcutaneous pen injector bumetanide 1 mg tablet 1 mg PO DAILY PRN edema #90 tabs 07/14/25 Rx Patient History Medical History (Updated 07/14/25 @ 11:00 by Javid Figueroa MD) Statin myopathy Pulmonary nodules Transient ischemic attack (TIA) x 4 (2014, 2015, 2019, 2021) History of esophageal dilatation History of GI bleed ulcerated hemangioma resected 2019 Vocal cord mass hx, 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 Robert History of esophagogastroduodenoscopy (EGD) History of colonoscopy History of breast biopsy History of arthroscopy RT KNEE History of bilateral tubal ligation H/O lumpectomy RT X 2 S/P appendectomy H/O lithotripsy History of tooth extraction History of cardiac cath ~2009 -NO STENTS AT [facility] WITH DR. FABRICIO Family History Grandmother Family history of diabetes mellitus Father Family history of diabetes mellitus Lung cancer smoker and diagnosed with "black lung" Lung disease Diabetes Cancer Mother MDP (myeloproliferative disorder) Family history of diabetes mellitus Glaucoma Hypertension Gall bladder disease Diabetes Cancer Unknown Leukemia Myocardial infarction Grandmother (Maternal) Diabetes Uncle Heart disease Other No family history of adverse response to anesthesia No family history of bleeding disorder Social History Smoking Status: Never smoker Tobacco Type: Cigarettes Second Hand Exposure: No; Do You Dip or Chew Tobacco: No; Hx Alcohol Use: No Hx Substance Use: No Preferred Language: Swiss Communication Ability: Effective Medical Management Specialist Required: No Beliefs That Will Affect Care: None marital status: marital status details: No children Current Living Situation: Spouse current occupational status: retired current occupation: Retired Feels Safe at Home: Yes Childhood Exposure to Second-Hand Smoke: Yes Diet: regular caffeine: Yes Dental Care, Regularly: Yes Physical Activity Frequency: Does not Exercise Seatbelt Use: never Sunscreen Use: No Assistive Devices: Cane and Walker Review of Systems Review of Systems: Per HPI. Chronic pain. Mild lower extremity edema if she does not keep her legs elevated. Physical Exam Physical Exam: She is alert and oriented x3. Mood affect appear normal. She answered all ques tions appropriately. HEENT: Sclerae are anicteric. Pupils are equal and reactive to light and accommodation. Extraocular movements were intact. Neuro: Cranial nerves intact Lungs: Lungs are clear to auscultation bilaterally. There are no rales wheezes or rhonchi. She has normal respiratory effort without use of accessory muscles. There is normal pulmonary excursion. Cardiac: The rhythm was regular. S1 and S2 were normal. Systolic murmur. The PMI was not markedly displaced on palpation. Extremities: Patient has bilateral radial pulses that are equal in intensity. There is no evidence cyanosis or clubbing. Mild lower extremity edema, left greater than right. Skin: There are no rashes noted on examination today. Results & Data Vital Signs (Past 12 Hours) Vital Signs Temp Pulse Pulse Resp BP Pulse Ox O2 Del Method 07/14/25 08:55 36.3 C L 72 19 144/67 H 93 Room Air 07/14/25 04:32 36.4 C L 72 19 145/69 H 94 Room Air 07/14/25 00:30 36.5 C 71 18 120/63 93 Room Air 07/13/25 23:00 72 Laboratory Results Abnormal Lab Results 07/13/25 07/13/25 07/13/25 10:36 11:45 12:22 WBC 12.14 H RBC 5.10 Hgb 14.0 Hct 42.3 MCV 82.9 MCH 27.5 MCHC 33.1 RDW Std Deviation 47.2 H RDW Coeff of Guevara 15.6 H Plt Count 268 MPV 11.5 Immature Gran % (Auto) 1.2 Neut % (Auto) 79.3 Lymph % (Auto) 14.7 [place] % (Auto) 3.8 Eos % (Auto) 0.6 Baso % (Auto) 0.4 Neut # (Auto) 9.64 H Lymph # (Auto) 1.78 [place] # (Auto) 0.46 Eos # (Auto) 0.07 Baso # (Auto) 0.05 Immature Gran # (Auto) 0.14 PT 10.5 INR 1.0 APTT 26 PTT Ratio 1.0 Sodium 137 Potassium 3.9 Chloride 98 Carbon Dioxide 30 Anion Gap 9 BUN 25 H Creatinine 0.85 Est Cr Clr Drug Dosing 67.3 eGFR 69.65 BUN/Creatinine Ratio 29.4 H Glucose 316 H* POC Glucose 272 H 240 H Estimat Average Glucose Hemoglobin A1c Calcium 9.4 Magnesium 1.9 Total Bilirubin 0.4 AST 16 ALT 27 Alkaline Phosphatase 53 Troponin I High Sens 8.9 Total Protein 7.5 Albumin 3.9 Globulin 3.6 Albumin/Globulin Ratio 1.1 TSH 1.931 07/13/25 07/13/25 07/13/25 14:35 15:30 19:25 WBC RBC Hgb Hct MCV MCH MCHC RDW Std Deviation RDW Coeff of Guevara Plt Count MPV Immature Gran % (Auto) Neut % (Auto) Lymph % (Auto) [place] % (Auto) Eos % (Auto) Baso % (Auto) Neut # (Auto) Lymph # (Auto) [place] # (Auto) Eos # (Auto) Baso # (Auto) Immature Gran # (Auto) PT INR APTT PTT Ratio Sodium Potassium Chloride Carbon Dioxide Anion Gap BUN Creatinine Est Cr Clr Drug Dosing eGFR BUN/Creatinine Ratio Glucose POC Glucose 132 H Estimat Average Glucose Hemoglobin A1c Calcium Magnesium Total Bilirubin AST ALT Alkaline Phosphatase Troponin I High Sens 20.6 H D 25.5 H Total Protein Albumin Globulin Albumin/Globulin Ratio TSH 07/13/25 07/14/25 07/14/25 19:58 06:01 07:21 WBC 13.02 H RBC 4.79 Hgb 12.8 Hct 40.1 MCV 83.7 MCH 26.7 MCHC 31.9 L RDW Std Deviation 48.2 H RDW Coeff of Guevara 15.9 H Plt Count 257 MPV 11.4 Immature Gran % (Auto) 1.2 Neut % (Auto) 76.9 Lymph % (Auto) 14.4 [place] % (Auto) 6.1 Eos % (Auto) 1.1 Baso % (Auto) 0.3 Neut # (Auto) 10.00 H Lymph # (Auto) 1.88 [place] # (Auto) 0.80 H Eos # (Auto) 0.14 Baso # (Auto) 0.04 Immature Gran # (Auto) 0.16 PT INR APTT PTT Ratio Sodium 137 Potassium 4.0 Chloride 102 Carbon Dioxide 26 Anion Gap 9 BUN 32 H Creatinine 1.24 H D Est Cr Clr Drug Dosing 46.1 eGFR 44.27 BUN/Creatinine Ratio 25.8 H Glucose 259 H POC Glucose 210 H 233 H Estimat Average Glucose 217 Hemoglobin A1c 9.2 H Calcium 8.5 L Magnesium 2.1 Total Bilirubin AST ALT Alkaline Phosphatase Troponin I High Sens 18.6 H D Total Protein Albumin Globulin Albumin/Globulin Ratio TSH Diagnostic Findings Echocardiogram 07/14/2025: Normal LV systolic function with ejection fraction of 60 to 65%. Moderate LVH. Mild mitral regurgitation. Moderate mitral annular calcification. Dobutamine echocardiogram 03/10/2023: No evidence of inducible ischemia. Hypertensive response to dobutamine. Normal LV systolic function with moderate LVH. Chest x-ray obtained at the time of admission Evzio acute cardiopulmonary process. PG Care Time/CCT Total # of Minutes Spent Total Time Spent with Patient: Total time spent is greater than 50% in coordination of care (as documented) at patient's floor/unit and/or counseling patient: Coding Level of Care Code 90006 INT INP/OBS CARE 3/75MIN Diagnoses Atrial fibrillation with rapid ventricular response I48.91 Mitral stenosis I05.0
[2025-07-14] MEDS: POLYETHYLENE (MIRALAX) 17 GM PACK PO PRN (15:45)
--- NOTE | 2025-07-14 16:01 | Hospitalist Progress Note ---
Date of Service July 14, 2025 Assessment & Plan (1) Atrial fibrillation with rapid ventricular response: (2) Recurrent UTI (urinary tract infection): (3) Hypertension: (4) Type 2 diabetes mellitus: Plan This patient is a 79-year-old female with a history of breast cancer, chronic right breast wound from fat necrosis, DM 2, chronic back pain and fibromyalgia on Butrans patch, GERD/GIB, HTN, chronic HFpEF, chronic venous insufficiency, subclinical hypothyroidism, iron deficiency anemia, PMR on chronic prednisone, restrictive lung disease secondary to obesity, uric acid nephrolithiasis, recurrent UTI, LYNDA not on CPAP, thyroid goiter, colonic stricture, and TIA x2, who presents with heart palpitations, shortness of breath, and chest discomfort. She will be admitted for new onset atrial fibrillation with RVR and elevated troponin likely from myocardial demand ischemia. #Paroxysmal atrial fibrillation with RVR/chest pain/myocardial demand ischemia- with new onset atrial fibrillation with rates in the 120s, symptomatic. With chest pressure but no ischemic changes on ECG and initial troponin normal at 8.9 and then angelica to 20. She had a normal dobutamine stress echo in 02/2023. She has a history of atypical chest pains and follows with cardiology. [id number]-PHEt score is 9 indicating 17.4% risk per year of stroke/TIA/systemic embolism. Anticoagulation is indicated. Her typical resting heart rate is usually in the 60s or 70s but sometimes into the 40s and 50s as per her pulse ox at home. She does report having heart palpitations similar to this but not lasting nearly as long at least once a day-she may have been having paroxysmal atrial fibrillation prior to the day of admission - Admit to PCU for arrhythmia monitoring - See cardiology consult increase in Eliquis and Coreg, no recurrent afib/RVR - OK to DC from cardiology standpoint, ongoing supportive cares UTI and EDIS as below. #DM2 with hyperglycemia-with blood glucose in the 300s on arrival likely due to stress. On chronic steroids. Diabetes is uncontrolled with last Hgb A1c 9.1% in 04/2025. Was given IV insulin for units regular in the ED. Is on semaglutide and working on weight loss. Also was on metformin and Humulin U-500 very high doses at home - Continue basal and bolus insulin while inpatient with Lantus 40 units twice daily and NovoLog range 100-140, CF 20, CR 12 - Hold home metformin and semaglutide - A1c 9.2%, self report of poor control recently, I suspect the diuresis associated has contributed to trigger the RVR as above - will utilize IV sliding scale to get caught up #Recurrent UTI/uric acid nephrolithiasis-recently took fosfomycin x 3 doses as an outpatient for recurrent UTI, follows with urology. Has been continuing to have urinary urgency and frequency without dysuria. No fevers or chills. WBC count mildly elevated at 12 but is on chronic prednisone. UA here is abnormal. Takes allopurinol for uric acid nephrolithiasis prevention. Was given a dose of IV ceftriaxone in the ED but most recent urine culture with Klebsiella aerogenes resistant to ceftriaxone. Discussed with pharmacist-initially, patient was going to go home from the ED and she was given a one-time dose of IV gentamicin as there were no other options given her allergies to sulfa and fluoroquinolone. Recent renal ultrasound with evidence of medical renal disease but no obstruction or bladder abnormalities. - Continue IV cefepime - UC with Klebsiella aerogenes - Await senitivities #EDIS - mild bump in creat - likely recovering from volume depletion in les setting of persistent hyperglycemia - LR Bolus 500cc x1 #HTN/chronic HFpEF - BP is uncontrolled, appears euvolemic with chronic lower extremity edema from venous insufficiency. - Titrate up on carvedilol for rate control with atrial fibrillation but also for improved BP control - Hold home amlodipine in case of need for further diltiazem for rate control - Continue home losartan, chlorthalidone #chronic venous insufficiency -volume mgmt as abve #Chronic back pain/fibromyalgia/chronic opioid use/PMR on chronic prednisone-no acute issues - Continue home Butrans patch, Lyrica, prednisone 10 mg daily-no need for stress dose steroids #GERD-no acute issues, on chronic prednisone. Last EGD 5 years ago with gastritis - Continue PPI twice daily #Restrictive lung disease/obesity BMI 41.5-her weight is down 8 kg in the last 9 months as she has been on Ozempic -Continue Ozempic on discharge #LYNDA not on CPAP-reportedly mild in the past and did not need CPAP - Consider repeat evaluation in light of new onset A-fib #History of TIA-no acute issues - Continue aspirin - Not on statin-unclear reason - Needs improved blood pressure control DVT prophylaxis-Johnny Disposition-admit to PCU Admission and Anticipated Discharge Date Admission Date: July 13, 2025 Subjective Doing much better from a heart rate standpoint no palpitations. She is up walking about. No problem with oral intake. No concerns with the limitations. We did have a lengthy discussion today about her recent blood sugars. It seems as though she admits quite significant dietary indiscretion over the recent holidays, related to this her blood sugar have routinely been over 400. She also reports that she had recent hospitalizations where her blood sugars were rather difficult to control with very similar numbers. Denies any history of DKA Physical Exam Constitutional: WD/WN, vitals as above Eyes: PERRL, conjunctivae normal, anicteric sclerae ENMT: external ear and nose normal, oropharynx normal Neck: trachea midline, no thyromegaly Respiratory: normal respiratory effort, lungs clear to auscultation Cardiovascular: Rate/Rhythm: regular rate and regular rhythm Heart Sounds: no murmur Extremities: + edema (Trace leg edema bilaterally) Chest (Breasts): Chest: normal inspection of chest Gastrointestinal (Abdomen): normal bowel sounds, soft, nontender, no hepatosplenomegaly Musculoskeletal: Extremities: extremities normal to inspection; no cyanosis and no clubbing Skin: no rashes, warm and dry Neurologic: moves all extremities and awake; no focal motor deficits Psychiatric: A+Ox3, euthymic affect Results & Data Results & Data Vital Signs (Past 12 Hours) Vital Signs Temp Pulse Resp BP Pulse Ox O2 Del Method 07/14/25 15:44 36.3 C L 76 19 133/71 94 Room Air 07/14/25 11:51 36.8 C 75 19 167/66 H 93 Room Air 07/14/25 08:55 36.3 C L 72 19 144/67 H 93 Room Air 07/14/25 04:32 36.4 C L 72 19 145/69 H 94 Room Air Laboratory Results 07/13/25 10:23 Urine Culture - Preliminary Urine,Clean Catch Klebsiella aerogenes 07/14/25 07/14/25 07/14/25 11:21 07:21 06:01 WBC 13.02 H RBC 4.79 Hgb 12.8 Hct 40.1 MCV 83.7 MCH 26.7 MCHC 31.9 L RDW Std Deviation 48.2 H RDW Coeff of Guevara 15.9 H Plt Count 257 MPV 11.4 Immature Gran % (Auto) 1.2 Neut % (Auto) 76.9 Lymph % (Auto) 14.4 [place] % (Auto) 6.1 Eos % (Auto) 1.1 Baso % (Auto) 0.3 Neut # (Auto) 10.00 H Lymph # (Auto) 1.88 [place] # (Auto) 0.80 H Eos # (Auto) 0.14 Baso # (Auto) 0.04 Immature Gran # (Auto) 0.16 Sodium 137 Potassium 4.0 Chloride 102 Carbon Dioxide 26 Anion Gap 9 BUN 32 H Creatinine 1.24 H D Est Cr Clr Drug Dosing 46.1 eGFR 44.27 BUN/Creatinine Ratio 25.8 H Glucose 259 H POC Glucose 319 H* 233 H Estimat Average Glucose 217 Hemoglobin A1c 9.2 H Calcium 8.5 L Magnesium 2.1 Troponin I High Sens 18.6 H D 07/13/25 07/13/25 19:58 19:25 WBC RBC Hgb Hct MCV MCH MCHC RDW Std Deviation RDW Coeff of Guevara Plt Count MPV Immature Gran % (Auto) Neut % (Auto) Lymph % (Auto) [place] % (Auto) Eos % (Auto) Baso % (Auto) Neut # (Auto) Lymph # (Auto) [place] # (Auto) Eos # (Auto) Baso # (Auto) Immature Gran # (Auto) Sodium Potassium Chloride Carbon Dioxide Anion Gap BUN Creatinine Est Cr Clr Drug Dosing eGFR BUN/Creatinine Ratio Glucose POC Glucose 210 H Estimat Average Glucose Hemoglobin A1c Calcium Magnesium Troponin I High Sens 25.5 H PG Care Time/CCT Total # of Minutes Spent Total Time Spent with Patient: Total time spent is greater than 50% in coordination of care (as documented) at patient's floor/unit and/or counseling patient: Coding Level of Care Code 66539 SUB INP/OBS CARE 2/35MIN Diagnoses Atrial fibrillation with rapid ventricular response I48.91 Recurrent UTI (urinary tract infection) N39.0 Hypertension I10 Hypertension type: unspecified Type 2 diabetes mellitus E11.9 Diabetes mellitus complication status: without complication Diabetes mellitus senior living insulin use: without senior living use (3) Hypertension Hypertension type: unspecified Qualified Code(s): I10 - Essential (primary) hypertension (4) Type 2 diabetes mellitus Diabetes mellitus complication status: without complication Diabetes mellitus vermin exterminator insulin use: without vermin exterminator use Qualified Code(s): E11.9 - Type 2 diabetes mellitus without complications
[2025-07-14] MEDS ORDERED: INSULIN HUMAN REGULAR PER UNIT 10 UNITS in SYRINGE 0 ML IV STA (16:52)
[2025-07-14] MEDS: LACTATED RINGER'S 500 ML IV ONE (17:22)
[2025-07-14] MEDS: INSULIN HUMAN REGULAR PER UNIT 10 UNITS in SYRINGE 9.9 ML IV STA (17:24)
[2025-07-15 06:07] LABS: Hematocrit (blood only) 38.7 % (37.0-47.0); Hemoglobin 12.3 g/dL (12.0-16.0); Immature Granulocytes # (auto) 0.17 K/uL (0.01-0.20); Immature Granulocytes % (auto) 1.5 %; Mean Corpuscular Hemoglobin 26.5 pg (25.0-34.0); Mean Corpuscular Volume 83.2 fL (80.0-100.0); Platelet Count 244 K/uL (130-400); RDW Standard Deviation 47.7 fL (36.4-46.3); Red Blood Count 4.65 M/uL (4.20-5.40); White Blood Count 11.14 K/ul (4.8-10.8)
[2025-07-15 06:41] LABS: Alanine Aminotransferase 19.0 U/L (7-52); Albumin Globulin Ratio 1.2 (0.9-2); Albumin Level 3.5 gm/dl (3.4-5.0); Alkaline Phosphatase 42.0 U/L (34-104); Anion Gap 9.0 (3-11); Bilirubin,Total 0.4 mg/dl (0.2-1.0); Blood Urea Nitrogen 44.0 mg/dl (6-23); Calcium 8.4 mg/dl (8.6-10.3); Carbon Dioxide 26.0 mmol/L (21-32); Chloride 98.0 mmol/L (98-107); Creatinine Clr Calc Pharmacy 40.7 ml/min; Globulin 3.0 gm/dl (2.5-4.0); Glucose 326.0 mg/dl (70-99(Fasting)); Magnesium 2.0 mg/dl (1.7-2.4); Potassium 3.8 mmol/L (3.5-5.1); Sodium 133.0 mmol/L (136-145); Total Protein 6.5 gm/dl (6.0-8.3)
[2025-07-15] MEDS: SODIUM CHLORIDE 0.9% 500 ML IV ONE (07:52)
[2025-07-15] MEDS: INSULIN HUMAN REGULAR PER UNIT 10 UNITS in SYRINGE 9.9 ML IV STA (11:00)
--- NOTE | 2025-07-15 14:26 | Hospitalist Progress Note ---
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 She will be admitted for new onset atrial fibrillation with RVR and elevated troponin likely from myocardial demand ischemia. #Paroxysmal atrial fibrillation with RVR/chest pain/myocardial demand ischemia- with new onset atrial fibrillation with rates in the 120s, symptomatic. With chest pressure but no ischemic changes on ECG and initial troponin normal at 8.9 and then angelica to 20. She had a normal dobutamine stress echo in 02/2023. She has a history of atypical chest pains and follows with cardiology. [id number] score is 9 indicating 17.4% risk per year of stroke/TIA/systemic embolism. Anticoagulation is indicated. Her typical resting heart rate is usually in the 60s or 70s but sometimes into the 40s and 50s as per her pulse ox at home. She does report having heart palpitations similar to this but not lasting nearly as long at least once a day-she may have been having paroxysmal atrial fibrillation prior to the day of admission - Admit to PCU for arrhythmia monitoring - See cardiology consult increase in Eliquis and Coreg, no recurrent afib/RVR - OK to DC from cardiology standpoint, ongoing supportive cares UTI and EDIS as below. - Rate controlled, no recurrence of RVR #DM2 with hyperglycemia-with blood glucose in the 300s on arrival likely due to stress. On chronic steroids. Diabetes is uncontrolled with last Hgb A1c 9.1% in 04/2025. Was given IV insulin for units regular in the ED. Is on semaglutide and working on weight loss. Also was on metformin and Humulin U-500 very high doses at home - Continue basal and bolus insulin while inpatient with Lantus 40 units twice daily and NovoLog range 100-140, CF 20, CR 12 - Hold home metformin and semaglutide - A1c 9.2%, self report of poor control recently, I suspect the diuresis associated has contributed to trigger the RVR as above - will utilize IV sliding scale to get caught up - Brittle, poor insulin response, tighten up correction and carb ration from 15/10 to 10/7, continue close monitoring. IV intraprandial catch up doses today, re-eval lantus/novolog doses one she is better controlled. #Recurrent UTI/uric acid nephrolithiasis-recently took fosfomycin x 3 doses as an outpatient for recurrent UTI, follows with urology. Has been continuing to have urinary urgency and frequency without dysuria. No fevers or chills. WBC count mildly elevated at 12 but is on chronic prednisone. UA here is abnormal. Takes allopurinol for uric acid nephrolithiasis prevention. Was given a dose of IV ceftriaxone in the ED but most recent urine culture with Klebsiella aerogenes resistant to ceftriaxone. Discussed with pharmacist-initially, patient was going to go home from the ED and she was given a one-time dose of IV gentamicin as there were no other options given her allergies to sulfa and fluoroquinolone. Recent renal ultrasound with evidence of medical renal disease but no obstruction or bladder abnormalities. - Continue IV cefepime - UC with Klebsiella aerogenes - grissom sensitive continue cefepime while here. #EDIS - mild bump in creat, with interval worsening, euvolemic. will send UA - likely recovering from volume depletion in the setting of persistent hyperglycemia - LR Bolus 500cc again this AM #HTN/chronic HFpEF - BP is uncontrolled, appears euvolemic with chronic lower extremity edema from venous insufficiency. - Titrate up on carvedilol for rate control with atrial fibrillation but also for improved BP control - Hold home amlodipine in case of need for further diltiazem for rate control - Continue home losartan, chlorthalidone is getting a C3 and statin okay Juan Elpidio 100 mL okay I see it but okay on that admission so I did know he did not know who is supposed to call him yeah so just reach out to him then pretty sure these yeah he is on the picture okay yeah yeah I still want to have a study okay yeah generally they said that they will respond back to him but yes that the loops that we do not have a strategy for his allergies yeah yeah that is for the best way to do it okay #chronic venous insufficiency -volume mgmt as abve #Chronic back pain/fibromyalgia/chronic opioid use/PMR on chronic prednisone-no acute issues - Continue home Butrans patch, Lyrica, prednisone 10 mg daily-no need for stress dose steroids #GERD-no acute issues, on chronic prednisone. Last EGD 5 years ago with gastritis - Continue PPI twice daily #Restrictive lung disease/obesity BMI 41.5-her weight is down 8 kg in the last 9 months as she has been on Ozempic -Continue Ozempic on discharge #LYNDA not on CPAP-reportedly mild in the past and did not need CPAP - Consider repeat evaluation in light of new onset A-fib #History of TIA-no acute issues - Continue aspirin - Not on statin-unclear reason - Needs improved blood pressure control DVT prophylaxis-Eliquis Disposition-admit to PCU Admission and Anticipated Discharge Date Admission Date: July 14, 2025 Subjective Doing okay this morning. No new events or concerns. Not feeling particularly thirsty. Normal urine output per patient. She reports her blood sugars were sitting up and consistent with what she has been seeing at home. At times she been very difficult to control for her. She states that even when she completely avoided the hydrates at times that the readings were still in the 400 range. Physical Exam Constitutional: WD/WN, vitals as above Eyes: PERRL, conjunctivae normal, anicteric sclerae ENMT: external ear and nose normal, oropharynx normal Neck: trachea midline, no thyromegaly Respiratory: normal respiratory effort, lungs clear to auscultation Cardiovascular: Rate/Rhythm: regular rate and regular rhythm Heart Sounds: no murmur Extremities: + edema (Trace leg edema bilaterally) Chest (Breasts): Chest: normal inspection of chest Gastrointestinal (Abdomen): normal bowel sounds, soft, nontender, no hepatosplenomegaly Musculoskeletal: Extremities: extremities normal to inspection; no cyanosis and no clubbing Skin: no rashes, warm and dry Neurologic: moves all extremities and awake; no focal motor deficits Psychiatric: A+Ox3, euthymic affect Results & Data Results & Data Vital Signs (Past 12 Hours) Vital Signs Temp Pulse Pulse Resp BP BP Pulse Ox 07/15/25 14:14 71 07/15/25 10:56 36.5 C 60 18 140/51 L 93 07/15/25 10:22 07/15/25 10:04 69 07/15/25 06:50 36.7 C 66 17 113/47 L 93 07/15/25 02:17 36.4 C L 67 18 132/66 94 O2 Del Method 07/15/25 14:14 07/15/25 10:56 Room Air 07/15/25 10:22 Room Air 07/15/25 10:04 07/15/25 06:50 Room Air 07/15/25 02:17 Room Air Laboratory Results 07/13/25 10:23 Urine Culture - Final Urine,Clean Catch Klebsiella aerogenes 07/15/25 07/15/25 07/15/25 11:56 10:45 07:31 WBC RBC Hgb Hct MCV MCH MCHC RDW Std Deviation RDW Coeff of Guevara Plt Count MPV Immature Gran % (Auto) Neut % (Auto) Lymph % (Auto) [place] % (Auto) Eos % (Auto) Baso % (Auto) Neut # (Auto) Lymph # (Auto) [place] # (Auto) Eos # (Auto) Baso # (Auto) Immature Gran # (Auto) Sodium Potassium Chloride Carbon Dioxide Anion Gap BUN Creatinine Est Cr Clr Drug Dosing eGFR BUN/Creatinine Ratio Glucose POC Glucose 275 H 340 H* 294 H Calcium Magnesium Total Bilirubin AST ALT Alkaline Phosphatase Total Protein Albumin Globulin Albumin/Globulin Ratio 07/15/25 07/14/25 07/14/25 05:15 20:32 16:18 WBC 11.14 H RBC 4.65 Hgb 12.3 Hct 38.7 MCV 83.2 MCH 26.5 MCHC 31.8 L RDW Std Deviation 47.7 H RDW Coeff of Guevara 15.9 H Plt Count 244 MPV 11.8 Immature Gran % (Auto) 1.5 Neut % (Auto) 73.6 Lymph % (Auto) 16.2 [place] % (Auto) 7.0 Eos % (Auto) 1.2 Baso % (Auto) 0.5 Neut # (Auto) 8.20 H Lymph # (Auto) 1.80 [place] # (Auto) 0.78 H Eos # (Auto) 0.13 Baso # (Auto) 0.06 Immature Gran # (Auto) 0.17 Sodium 133 L Potassium 3.8 Chloride 98 Carbon Dioxide 26 Anion Gap 9 BUN 44 H Creatinine 1.41 H Est Cr Clr Drug Dosing 40.7 eGFR 37.94 BUN/Creatinine Ratio 31.2 H Glucose 326 H* POC Glucose 395 H* 403 H* Calcium 8.4 L Magnesium 2.0 Total Bilirubin 0.4 AST 11 L ALT 19 Alkaline Phosphatase 42 Total Protein 6.5 Albumin 3.5 Globulin 3.0 Albumin/Globulin Ratio 1.2 PG Care Time/CCT Total # of Minutes Spent Total Time Spent with Patient: Total time spent is greater than 50% in coordination of care (as documented) at patient's floor/unit and/or counseling patient: Coding Level of Care Code 91899 SUB INP/OBS CARE 235MIN Diagnoses Atrial fibrillation with rapid ventricular response I48.91 Recurrent UTI (urinary tract infection) N39.0 Hypertension I10 Hypertension type: unspecified Type 2 diabetes mellitus E11.9 Diabetes mellitus complication status: without complication Diabetes mellitus fci insulin use: without extermination inspector use (3) Hypertension Hypertension type: unspecified Qualified Code(s): I10 - Essential (primary) hypertension (4) Type 2 diabetes mellitus Diabetes mellitus complication status: without complication Diabetes mellitus fci insulin use: without extermination inspector use Qualified Code(s): E11.9 - Type 2 diabetes mellitus without complications
[2025-07-15] MEDS: INSULIN HUMAN REGULAR PER UNIT 15 UNITS in SYRINGE 14.85 ML IV ONE (15:38)
[2025-07-16 06:27] LABS: Hematocrit (blood only) 39.7 % (37.0-47.0); Hemoglobin 12.7 g/dL (12.0-16.0); Immature Granulocytes # (auto) 0.18 K/uL (0.01-0.20); Immature Granulocytes % (auto) 1.5 %; Mean Corpuscular Hemoglobin 26.3 pg (25.0-34.0); Mean Corpuscular Volume 82.2 fL (80.0-100.0); Platelet Count 260 K/uL (130-400); RDW Standard Deviation 46.6 fL (36.4-46.3); Red Blood Count 4.83 M/uL (4.20-5.40); White Blood Count 12.17 K/ul (4.8-10.8)
[2025-07-16 07:08] LABS: Anion Gap 10.0 (3-11); Blood Urea Nitrogen 44.0 mg/dl (6-23); Calcium 8.6 mg/dl (8.6-10.3); Carbon Dioxide 25.0 mmol/L (21-32); Chloride 98.0 mmol/L (98-107); Creatinine Clr Calc Pharmacy 54.7 ml/min; Glucose 242.0 mg/dl (70-99(Fasting)); Magnesium 2.0 mg/dl (1.7-2.4); Potassium 3.8 mmol/L (3.5-5.1); Sodium 133.0 mmol/L (136-145)
[2025-07-16] MEDS ORDERED: PHARMACY GLYCEMIC MGMT CONSULT PRN (08:13)
[2025-07-16] MEDS: INSULIN ASPART PER UNIT CHARGE SC ONE (09:20)
[2025-07-16] MEDS: LANTUS PER UNIT CHARGE SQ ONE ×2 (09:20→20:44)
--- NOTE | 2025-07-16 13:33 | Pharmacy Report ---
Pharmacy Glycemic Short Note 2 - Date of Service July 16, 2025 - Glycemic Short BSG Results (Last 24 hours): 07/15/25 07/15/25 07/15/25 15:01 15:02 16:52 Glucose POC Glucose 411 H* 397 H* 281 H 07/15/25 07/16/25 07/16/25 19:56 05:47 07:05 Glucose 242 H POC Glucose 272 H 217 H 07/16/25 11:28 Glucose POC Glucose 280 H OUTPATIENT ANTIDIABETIC REGIMEN: * U-500 insulin 80-150 units SC BID * Metformin 500 mg PO BIDM HbA1c: 9.2% (07/14/25) ASSESSMENT: * CB is a 79 year old female admitted on 07/14/25 for atrial fibrillation w/ RVR * Pharmacy consulted for glycemic management this morning due to persistent hyperglycemia * Received 170 units of insulin yesterday (80 units of basal, 70 units of SC Novolog, 20 units of IV regular insulin) * Will significantly tighten Novolog parameters today and likely increase basal as well * Prednisone 10 mg PO daily (chronic med) PLAN FOR INPATIENT GLYCEMIC CONTROL: * Hold U-500 insulin for now * Basal insulin * Lantus 80 units SQ x 1 this morning * Lantus 0-20-40 units SC HS x 1 * Reassess in AM * Bolus insulin * NovoLog per scale ACHS or Q6hrs while NPO * Goal Range: Low 110 mg/dL - High 140 mg/dL * Correction Factor: 8 mg/dL/unit * Nutritional / Prandial insulin per carb ratio of 1 unit per 2 grams CHO consumed
--- NOTE | 2025-07-16 15:26 | Hospitalist Progress Note ---
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 She will be admitted for new onset atrial fibrillation with RVR and elevated troponin likely from myocardial demand ischemia. #Paroxysmal atrial fibrillation with RVR/chest pain/myocardial demand ischemia- with new onset atrial fibrillation with rates in the 120s, symptomatic. With chest pressure but no ischemic changes on ECG and initial troponin normal at 8.9 and then angelica to 20. She had a normal dobutamine stress echo in 02/2023. She has a history of atypical chest pains and follows with cardiology. [id number] score is 9 indicating 17.4% risk per year of stroke/TIA/systemic embolism. Anticoagulation is indicated. Her typical resting heart rate is usually in the 60s or 70s but sometimes into the 40s and 50s as per her pulse ox at home. She does report having heart palpitations similar to this but not lasting nearly as long at least once a day-she may have been having paroxysmal atrial fibrillation prior to the day of admission - Admit to PCU for arrhythmia monitoring - See cardiology consult increase in Eliquis and Coreg, no recurrent afib/RVR - OK to DC from cardiology standpoint, ongoing supportive cares UTI and EDIS as below. - Rate controlled, no recurrence of RVR, DM2 control is now primary reason to remain IP #DM2 with hyperglycemia-with blood glucose in the 300s on arrival likely due to stress. On chronic steroids. Diabetes is uncontrolled with last Hgb A1c 9.1% in 04/2025. Was given IV insulin for units regular in the ED. Is on s emaglutide and working on weight loss. Also was on metformin and Humulin U-500 very high doses at home - Continue basal and bolus insulin while inpatient with Lantus 40 units twice daily and NovoLog range 100-140, CF 20, CR 12 - Hold home metformin and semaglutide - A1c 9.2%, self report of poor control recently, I suspect the diuresis associated has contributed to trigger the RVR as above - will utilize IV sliding scale to get caught up - 07/15 Brittle, poor insulin response, tighten up correction and carb ratio from 15/10 to 10/7, continue close monitoring. IV intraprandial catch up doses today, re-eval lantus/novolog doses one she is better controlled. - 07/16 consult to pharmacy for glycemic mgmt, very likely progressive subacute increase in insulin resistance, quite significant increase in needs. Discussed CGM and Pump with patient. She is open to having this now especially given her increase in insulin needs. Will have nutrition and CM set her up with diabetes coordinator. #Recurrent UTI/uric acid nephrolithiasis-recently took fosfomycin x 3 doses as an outpatient for recurrent UTI, follows with urology. Has been continuing to have urinary urgency and frequency without dysuria. No fevers or chills. WBC count mildly elevated at 12 but is on chronic prednisone. UA here is abnormal. Takes allopurinol for uric acid nephrolithiasis prevention. Was given a dose of IV ceftriaxone in the ED but most recent urine culture with Klebsiella aerogenes resistant to ceftriaxone. Discussed with pharmacist-initially, patient was going to go home from the ED and she was given a one-time dose of IV gentamicin as there were no other options given her allergies to sulfa and fluoroquinolone. Recent renal ultrasound with evidence of medical renal disease but no obstruction or bladder abnormalities. - Continue IV cefepime - UC with Klebsiella aerogenes, variable recent resistances - grissom sensitive continue cefepime while here, consider quinolone or bactrim on DC if her renal function remains at baseline. #EDIS - mild bump in creat, with interval worsening, euvolemic. will send UA - likely recovering from volume depletion in the setting of persistent hyperglycemia - LR Bolus 500cc again this AM - Resolved, at baseline #HTN/chronic HFpEF - BP is uncontrolled, appears euvolemic with chronic lower extremity edema from venous insufficiency. - Titrate up on carvedilol for rate control with atrial fibrillation but also for improved BP control - Hold home amlodipine in case of need for further diltiazem for rate control - Continue home losartan, chlorthalidone #chronic venous insufficiency -volume mgmt as above #Chronic back pain/fibromyalgia/chronic opioid use/PMR on chronic prednisone-no acute issues - Continue home Butrans patch, Lyrica, prednisone 10 mg daily-no need for stress dose steroids #GERD-no acute issues, on chronic prednisone. Last EGD 5 years ago with gastritis - Continue PPI twice daily #Restrictive lung disease/obesity BMI 41.5-her weight is down 8 kg in the last 9 months as she has been on Ozempic -Continue Ozempic on discharge #LYNDA not on CPAP-reportedly mild in the past and did not need CPAP - Consider repeat evaluation in light of new onset A-fib #History of TIA-no acute issues - Continue aspirin - Not on statin-unclear reason - Needs improved blood pressure control DVT prophylaxis-Eliquis Disposition-admit to PCU Admission and Anticipated Discharge Date Admission Date: July 14, 2025 Subjective Doing okay this morning. We discussed her renal function that had normalized. Her diet has been consistent. We had a lengthy discussion about her blood sugars and her evident escalating insulin resistance. It seems as though this has been progressive over the last several weeks to months. Insulin needs have been increasing. Also on further review she has had quite a bit of polyuria, polydipsia over that timeframe as well. We discussed the levels of insulin she is requiring at this time and still does not yet maintain control. Had a lengthy discussion in regards to getting continuous glucose meter and a pump. She was initially resistant to this but given the overall need for her insulin and adequate control she is more open. We discussed having dietary involved and diabetic coordinator. Advised that she will need close follow-up in the outpatient setting to maintain safety and control at least for the short-term Physical Exam Constitutional: WD/WN, vitals as above Eyes: PERRL, conjunctivae normal, anicteric sclerae ENMT: external ear and nose normal, oropharynx normal Neck: trachea midline, no thyromegaly Respiratory: normal respiratory effort, lungs clear to auscultation Cardiovascular: Rate/Rhythm: regular rate and regular rhythm Heart Sounds: no murmur Extremities: + edema (Trace leg edema bilaterally) Chest (Breasts): Chest: normal inspection of chest Gastrointestinal (Abdomen): normal bowel sounds, soft, nontender, no hepatosplenomegaly Musculoskeletal: Extremities: extremities normal to inspection; no cyanosis and no clubbing Skin: no rashes, warm and dry Neurologic: moves all extremities and awake; no focal motor deficits Psychiatric: A+Ox3, euthymic affect Results & Data Results & Data Vital Signs (Past 12 Hours) Vital Signs Temp Pulse Pulse Resp BP Pulse Ox O2 Del Method 07/16/25 15:17 58 L 07/16/25 14:56 36.6 C 65 19 141/66 H 95 Room Air 07/16/25 11:48 36.3 C L 67 20 112/67 94 Room Air 07/16/25 07:07 36.7 C 83 19 147/72 H 100 Room Air 07/16/25 04:37 155/64 H Laboratory Results 07/16/25 07/16/25 07/16/25 13:31 11:28 07:05 WBC RBC Hgb Hct MCV MCH MCHC RDW Std Deviation RDW Coeff of Guevara Plt Count MPV Immature Gran % (Auto) Neut % (Auto) Lymph % (Auto) [place] % (Auto) Eos % (Auto) Baso % (Auto) Neut # (Auto) Lymph # (Auto) [place] # (Auto) Eos # (Auto) Baso # (Auto) Immature Gran # (Auto) Sodium Potassium Chloride Carbon Dioxide Anion Gap BUN Creatinine Est Cr Clr Drug Dosing eGFR BUN/Creatinine Ratio Glucose POC Glucose 267 H 280 H 217 H Calcium Magnesium 07/16/25 07/15/25 07/15/25 05:47 19:56 16:52 WBC 12.17 H RBC 4.83 Hgb 12.7 Hct 39.7 MCV 82.2 MCH 26.3 MCHC 32.0 RDW Std Deviation 46.6 H RDW Coeff of Guevara 15.7 H Plt Count 260 MPV 11.9 Immature Gran % (Auto) 1.5 Neut % (Auto) 74.4 Lymph % (Auto) 16.6 [place] % (Auto) 6.0 Eos % (Auto) 1.1 Baso % (Auto) 0.4 Neut # (Auto) 9.06 H Lymph # (Auto) 2.02 [place] # (Auto) 0.73 H Eos # (Auto) 0.13 Baso # (Auto) 0.05 Immature Gran # (Auto) 0.18 Sodium 133 L Potassium 3.8 Chloride 98 Carbon Dioxide 25 Anion Gap 10 BUN 44 H Creatinine 1.05 D Est Cr Clr Drug Dosing 54.7 eGFR 54.05 BUN/Creatinine Ratio 41.9 H Glucose 242 H POC Glucose 272 H 281 H Calcium 8.6 Magnesium 2.0 PG Care Time/CCT Total # of Minutes Spent Total Time Spent with Patient: Total time spent is greater than 50% in coordination of care (as documented) at patient's floor/unit and/or counseling patient: Coding Level of Care Code 48299 SUB INP/OBS CARE 2/35MIN Diagnoses Atrial fibrillation with rapid ventricular response I48.91 Recurrent UTI (urinary tract infection) N39.0 Hypertension I10 Hypertension type: unspecified Type 2 diabetes mellitus E11.9 Diabetes mellitus complication status: without complication Diabetes mellitus fdc insulin use: without vermin exterminator use (3) Hypertension Hypertension type: unspecified Qualified Code(s): I10 - Essential (primary) hypertension (4) Type 2 diabetes mellitus Diabetes mellitus complication status: without complication Diabetes mellitus vermin exterminator insulin use: without vermin exterminator use Qualified Code(s): E11.9 - Type 2 diabetes mellitus without complications
--- NOTE | 2025-07-16 20:36 | Electrocardiogram Report ---
Test Reason : Blood Pressure : */* mmHG Vent. Rate : 125 BPM Atrial Rate : * BPM P-R Int : * ms QRS Dur : 126 ms QT Int : 342 ms P-R-T Axes : * -42 37 degrees QTcB Int : 493 ms Atrial fibrillation with rapid ventricular response Left axis deviation Right bundle branch block Abnormal ECG When compared with ECG of 11-Jul-2024 15:22, Atrial fibrillation has replaced Sinus rhythm Confirmed by Erica Alexander (Galdino) on 07/16/2025 8:36:27 PM Referred By: REFERRED SELF Confirmed By: Erica Alexander
[2025-07-16] MEDS: MELATONIN 3 MG TAB PO PRN (20:48)
[2025-07-17] MEDS: LANTUS PER UNIT CHARGE SC SCH ×2 (08:51→21:16)
[2025-07-17 08:58] LABS: Hematocrit (blood only) 40.4 % (37.0-47.0); Hemoglobin 13.1 g/dL (12.0-16.0); Mean Corpuscular Hemoglobin 26.4 pg (25.0-34.0); Mean Corpuscular Volume 81.5 fL (80.0-100.0); Platelet Count 258 K/uL (130-400); RDW Standard Deviation 46.2 fL (36.4-46.3); Red Blood Count 4.96 M/uL (4.20-5.40); White Blood Count 12.15 K/ul (4.8-10.8)
[2025-07-17 09:14] LABS: Anion Gap 8.0 (3-11); Blood Urea Nitrogen 42.0 mg/dl (6-23); Calcium 9.1 mg/dl (8.6-10.3); Carbon Dioxide 26.0 mmol/L (21-32); Chloride 100.0 mmol/L (98-107); Creatinine Clr Calc Pharmacy 54.7 ml/min; Glucose 201.0 mg/dl (70-99(Fasting)); Magnesium 2.2 mg/dl (1.7-2.4); Potassium 3.4 mmol/L (3.5-5.1); Sodium 134.0 mmol/L (136-145)
--- NOTE | 2025-07-17 12:12 | Pharmacy Report ---
Pharmacy Glycemic Short Note 2 - Date of Service July 17, 2025 - Glycemic Short BSG Results (Last 24 hours): 07/16/25 07/16/25 07/16/25 13:31 16:20 19:59 Glucose POC Glucose 267 H 250 H 240 H 07/17/25 07/17/25 07/17/25 07:26 08:30 11:25 Glucose 201 H POC Glucose 167 H 234 H OUTPATIENT ANTIDIABETIC REGIMEN: * U-500 insulin 80-150 units SC BID * Metformin 500 mg PO BIDM HbA1c: 9.2% (07/14/25) ASSESSMENT: 07/17: * BSGs [phone]/dL the last 24h. Received 120 units of basal and 118 units of bolus insulin yesterday. * Tolerating diet, continues on cefepime and PO prednisone 10mg daily. * Lantus 80 units qAM and 50 units HS- continue to titrate. No change to Novolog parameters today - continue CF: 8mg/dL/unit and CR: 2gm/unit. 07/16: * CB is a 79 year old female admitted on 07/14/25 for atrial fibrillation w/ RVR * Pharmacy consulted for glycemic management this morning due to persistent hyperglycemia * Received 170 units of insulin yesterday (80 units of basal, 70 units of SC Novolog, 20 units of IV regular insulin) * Will significantly tighten Novolog parameters today and likely increase basal as well * Prednisone 10 mg PO daily (chronic med) PLAN FOR INPATIENT GLYCEMIC CONTROL: * Hold U-500 insulin for now * Basal insulin * Lantus 80 units SQ qAM + 50 units SQ HS * Bolus insulin * NovoLog per scale ACHS or Q6hrs while NPO * Goal Range: Low 110 mg/dL - High 140 mg/dL * Correction Factor: 8 mg/dL/unit * Nutritional / Prandial insulin per carb ratio of 1 unit per 2 grams CHO consumed
--- NOTE | 2025-07-17 13:00 | Hospitalist Progress Note ---
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 She is admitted for new onset atrial fibrillation with RVR and elevated troponin likely from myocardial demand ischemia. #Paroxysmal atrial fibrillation with RVR//myocardial demand ischemia-with new onset atrial fibrillation with rates in the 120s, symptomatic. With chest pressure but no ischemic changes on ECG and initial troponin normal at 8.9 and then angelica to 20. She had a normal dobutamine stress echo in 02/2023. She has a history of atypical chest pains and follows with cardiology. [id number] score is 9 indicating 17.4% risk per year of stroke/TIA/systemic embolism. Anticoagulation is indicated. Her typical resting heart rate is usually in the 60s or 70s but sometimes into the 40s and 50s as per her pulse ox at home. She does report having heart palpitations similar to this but not lasting nearly as long at least once a day-she may have been having paroxysmal atrial fibrillation prior to the day of admission -Cardiology saw the patient, currently on apixaban and carvedilol - OK to DC from cardiology standpoint - Rate controlled, no recurrence of RVR - Outpatient follow-up with application software developer Dr. Javid Figueroa #DM2 with hyperglycemia-with blood glucose in the 300s on arrival likely due to stress. On chronic steroids. Diabetes is uncontrolled with last Hgb A1c 9.1% in 04/2025. Was given IV insulin for units regular in the ED. Is on semaglutide and working on weight loss. Also was on metformin and Humulin U-500 very high doses at home - Hold home metformin and semaglutide -A1c is 9.2 - Pharmacy managing glycemic control - Will need outpatient follow-up with endocrinology on discharge #Recurrent UTI/uric acid nephrolithiasis-recently took fosfomycin x 3 doses as an outpatient for recurrent UTI, follows with urology. Has been continuing to have urinary urgency and frequency without dysuria. No fevers or chills. WBC count mildly elevated at 12 but is on chronic prednisone. UA here is abnormal. Takes allopurinol for uric acid nephrolithiasis prevention. Was given a dose of IV ceftriaxone in the ED but most recent urine culture with Klebsiella aerogenes resistant to ceftriaxone. Discussed with pharmacist-initially, patient was going to go home from the ED and she was given a one-time dose of IV gentamicin as there were no other options given her allergies to sulfa and fluoroquinolone. Recent renal ultrasound with evidence of medical renal disease but no obstruction or bladder abnormalities. -Urine culture growing Klebsiella aerogenes -Continue IV cefepime (day 4) #EDIS -Hold chlorthalidone - Renal function has improved - Replace electrolytes including potassium - Avoid NSAIDs and nephrotoxic agents - Monitor renal function and electrolytes #HTN/chronic HFpEF - BP is uncontrolled, appears euvolemic with chronic lower extremity edema from venous insufficiency. - Titrate up on carvedilol for rate control with atrial fibrillation but also for improved BP control -Continue losartan - Hold chlorthalidone in light of EDIS - Monitor vital signs #chronic venous insufficiency -volume mgmt as above #Chronic back pain/fibromyalgia/chronic opioid use/PMR on chronic prednisone-no acute issues - Continue home Butrans patch, Lyrica, prednisone 10 mg daily-no need for stress dose steroids #GERD-no acute issues, on chronic prednisone. Last EGD 5 years ago with gastritis - Continue PPI twice daily #Restrictive lung disease/obesity BMI 41.5-her weight is down 8 kg in the last 9 months as she has been on Ozempic -Continue Ozempic on discharge #LYNDA not on CPAP-reportedly mild in the past and did not need CPAP -Outpatient follow-up PCP for sleep study #History of TIA-no acute issues -As per cardiology, stop aspirin since patient transition to apixaban - Not on statin-unclear reason - Needs improved blood pressure control DVT prophylaxis-Eliquis Disposition-discharge planning home with home health likely tomorrow if medically stable Care plan discussed with patient, nursing staff Admission and Anticipated Discharge Date Admission Date: July 14, 2025 Subjective Patient seen and examined Feels much better today, denies any fever, chills, nausea, vomiting, diarrhea, abdominal pain, dizziness, lightheadedness Overall feels better, lives at home with her , uses a walker Patient is knowledgeable about giving herself insulin: Patient states she has been noncompliant with her diabetes regimen over the past 2 months especially with diet control but is willing to take control of diet and comply with recommendations Physical Exam Physical Exam: General: No acute distress Psych: Awake and alert HEENT: Anicteric sclera, moist oral mucosa CVS: Regular rate and rhythm Lungs: Bilateral air entry, no wheezing noted Abdomen: Soft, nontender, no rebound, no guarding Ext: Trace lower extremity edema, no calf tenderness Neuro: No focal motor deficits noted Results & Data Results & Data Vital Signs (Past 12 Hours) Vital Signs Temp Pulse Resp BP Pulse Ox O2 Del Method 07/17/25 11:00 36.4 C L 57 L 18 125/61 94 Room Air 07/17/25 09:00 Room Air 07/17/25 07:31 36.4 C L 63 19 147/73 H 94 Room Air 07/17/25 03:00 36.9 C 63 20 144/63 H 96 Room Air Laboratory Results Laboratory Results - last 24 hr 07/16/25 07/16/25 07/16/25 13:31 16:20 19:59 WBC RBC Hgb Hct MCV MCH MCHC RDW Std Deviation RDW Coeff of Guevara Plt Count MPV Sodium Potassium Chloride Carbon Dioxide Anion Gap BUN Creatinine Est Cr Clr Drug Dosing eGFR BUN/Creatinine Ratio Glucose POC Glucose 267 H 250 H 240 H Calcium Magnesium 07/17/25 07/17/25 07/17/25 07:26 08:30 11:25 WBC 12.15 H RBC 4.96 Hgb 13.1 Hct 40.4 MCV 81.5 MCH 26.4 MCHC 32.4 RDW Std Deviation 46.2 RDW Coeff of Guevara 15.9 H Plt Count 258 MPV 10.9 Sodium 134 L Potassium 3.4 L Chloride 100 Carbon Dioxide 26 Anion Gap 8 BUN 42 H Creatinine 1.05 Est Cr Clr Drug Dosing 54.7 eGFR 54.05 BUN/Creatinine Ratio 40.0 H Glucose 201 H POC Glucose 167 H 234 H Calcium 9.1 Magnesium 2.2 PG Care Time/CCT Total # of Minutes Spent Total Time Spent with Patient: Total time spent is greater than 50% in coordination of care (as documented) at patient's floor/unit and/or counseling patient: Coding Level of Care Code 16138 SUB INP/OBS CARE 2/35MIN Diagnoses Atrial fibrillation with rapid ventricular response I48.91 Recurrent UTI (urinary tract infection) N39.0 Hypertension I10 Hypertension type: unspecified Type 2 diabetes mellitus E11.9 Diabetes mellitus complication status: without complication Diabetes mellitus group home insulin use: without group home use (3) Hypertension Hypertension type: unspecified Qualified Code(s): I10 - Essential (primary) hypertension (4) Type 2 diabetes mellitus Diabetes mellitus complication status: without complication Diabetes mellitus moth exterminator insulin use: without moth exterminator use Qualified Code(s): E11.9 - Type 2 diabetes mellitus without complications
[2025-07-17] MEDS: POTASSIUM CHLORIDE CRTAB 20 MEQ TABCR PO STA (16:24)
[2025-07-17] MEDS: SODIUM CHLORIDE 0.9% 500 ML IV ONE (16:58)
[2025-07-18 06:25] LABS: Hematocrit (blood only) 37.6 % (37.0-47.0); Hemoglobin 12.3 g/dL (12.0-16.0); Mean Corpuscular Hemoglobin 26.7 pg (25.0-34.0); Mean Corpuscular Volume 81.7 fL (80.0-100.0); Platelet Count 249 K/uL (130-400); RDW Standard Deviation 46.6 fL (36.4-46.3); Red Blood Count 4.60 M/uL (4.20-5.40); White Blood Count 11.78 K/ul (4.8-10.8)
[2025-07-18 06:40] LABS: Anion Gap 8.0 (3-11); Blood Urea Nitrogen 41.0 mg/dl (6-23); Calcium 8.9 mg/dl (8.6-10.3); Carbon Dioxide 25.0 mmol/L (21-32); Chloride 102.0 mmol/L (98-107); Creatinine Clr Calc Pharmacy 56.1 ml/min; Glucose 193.0 mg/dl (70-99(Fasting)); Magnesium 2.2 mg/dl (1.7-2.4); Potassium 4.0 mmol/L (3.5-5.1); Sodium 135.0 mmol/L (136-145)
[2025-07-18] MEDS: HumuLIN-R 500 UNITS/ML VIAL SQ SCH (08:31)
[2025-07-18] MEDS ORDERED: LANTUS PER UNIT CHARGE SC SCH (09:00)
[2025-07-18 10:55] VITALS: RESP 16; TEMP 97.3; O2SAT 94
--- NOTE | 2025-07-18 11:45 | Pharmacy Report ---
Pharmacy Glycemic Short Note 2 - Date of Service July 18, 2025 - Glycemic Short BSG Results (Last 24 hours): 07/17/25 07/17/25 07/18/25 16:02 20:58 05:53 Glucose 193 H POC Glucose 271 H 267 H 07/18/25 07/18/25 07:09 11:05 Glucose POC Glucose 178 H 247 H OUTPATIENT ANTIDIABETIC REGIMEN: * U-500 insulin 80-150 units SC BID * 120 units SQ qAM/80 units qPM (per September 2024 PCP note) * Metformin 500 mg PO BIDM HbA1c: 9.2% (07/14/25) ASSESSMENT: 07/18: * BSGs elevated the last 24h: [phone]/dL. Fasting BSG remains reasonably controlled. Received 130 units of basal and 122 units of bolus insulin yesterday. * Tolerating diet, continues cefepime and prednisone. * Given persistently elevated prandial BSGs and already very tight Novolog (02/18) - will transition to U-500 as she is on @ home. Plan for 80 units BID with meals today (~80% home dose reduction) and will titrate based upon BSG trend. Novolog discontinued with transition to U-500 as will provide prandial coverage. 07/17: * BSGs [phone]/dL the last 24h. Received 120 units of basal and 118 units of bolus insulin yesterday. * Tolerating diet, continues on cefepime and PO prednisone 10mg daily. * Lantus 80 units qAM and 50 units HS- continue to titrate. No change to Novolog parameters today - continue CF: 8mg/dL/unit and CR: 2gm/unit. 07/16: * CB is a 79 year old female admitted on 07/14/25 for atrial fibrillation w/ RVR * Pharmacy consulted for glycemic management this morning due to persistent hyperglycemia * Received 170 units of insulin yesterday (80 units of basal, 70 units of SC Novolog, 20 units of IV regular insulin) * Will significantly tighten Novolog parameters today and likely increase basal as well * Prednisone 10 mg PO daily (chronic med) PLAN FOR INPATIENT GLYCEMIC CONTROL: * Hold U-500 insulin for now * Basal insulin * Humulin R-U-500: 80 units SQ BIDM * Bolus insulin * hold
[2025-07-18 12:16] VITALS: PULSE 64
--- NOTE | 2025-07-18 12:18 | Discharge Summary ---
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 She is admitted for new onset atrial fibrillation with RVR and elevated troponin likely from myocardial demand ischemia. #Paroxysmal atrial fibrillation with RVR//myocardial demand ischemia-with new onset atrial fibrillation with rates in the 120s, symptomatic. With chest pressure but no ischemic changes on ECG and initial troponin normal at 8.9 and then angelica to 20. She had a normal dobutamine stress echo in 02/2023. She has a history of atypical chest pains and follows with cardiology. [id number] score is 9 indicating 17.4% risk per year of stroke/TIA/systemic embolism. Antic oagulation is indicated. Her typical resting heart rate is usually in the 60s or 70s but sometimes into the 40s and 50s as per her pulse ox at home. She does report having heart palpitations similar to this but not lasting nearly as long at least once a day-she may have been having paroxysmal atrial fibrillation prior to the day of admission -Cardiology saw the patient, currently on apixaban and carvedilol - OK to DC from cardiology standpoint - Rate controlled, no recurrence of RVR - Outpatient follow-up with global chief creative officer Dr. Javid Figueroa #DM2 with hyperglycemia-with blood glucose in the 300s on arrival likely due to stress. On chronic steroids. Diabetes is uncontrolled with last Hgb A1c 9.1% in 04/2025. Was given IV insulin for units regular in the ED. Is on semaglutide and working on weight loss. Also was on metformin and Humulin U-500 very high doses at home -Resume metformin and semaglutide -A1c is 9.2 -Resume outpatient insulin regimen - Will need outpatient follow-up with endocrinology on discharge #Recurrent UTI/uric acid nephrolithiasis-recently took fosfomycin x 3 doses as an outpatient for recurrent UTI, follows with urology. Has been continuing to have urinary urgency and frequency without dysuria. No fevers or chills. WBC count mildly elevated at 12 but is on chronic prednisone. UA here is abnormal. Takes allopurinol for uric acid nephrolithiasis prevention. Was given a dose of IV ceftriaxone in the ED but most recent urine culture with Klebsiella aerogenes resistant to ceftriaxone. Discussed with pharmacist-initially, patient was going to go home from the ED and she was given a one-time dose of IV gentamicin as there were no other options given her allergies to sulfa and fluoroquinolone. Recent renal ultrasound with evidence of medical renal disease but no obstruction or bladder abnormalities. -Urine culture growing Klebsiella aerogenes -Patient has finished 5 days of IV cefepime - White count has improved but slightly elevated: In reviewing her white count it has been consistently elevated: I will have her see her PCP to repeat her white count as outpatient and further management through PCP #EDIS - Renal function has improved - Replace electrolytes including potassium - Avoid NSAIDs and nephrotoxic agents -Outpatient follow-up with PCP to monitor her renal function and electrolytes #HTN/chronic HFpEF -Continue carvedilol 12.5 mg twice daily -Continue losartan -Continue chlorthalidone -Resume amlodipine - Outpatient follow-up with PCP for blood pressure monitoring and medication management #Chronic back pain/fibromyalgia/chronic opioid use/PMR on chronic prednisone-no acute issues - Continue home Butrans patch, Lyrica, prednisone 10 mg daily-no need for stress dose steroids #GERD-no acute issues, on chronic prednisone. Last EGD 5 years ago with gastritis - Continue PPI twice daily #Restrictive lung disease/obesity BMI 41.5-her weight is down 8 kg in the last 9 months as she has been on Ozempic -Continue Ozempic on discharge #LYNDA not on CPAP-reportedly mild in the past and did not need CPAP -Outpatient follow-up PCP for sleep study #History of TIA-no acute issues -As per cardiology, stop aspirin since patient transition to apixaban - Not on statin-unclear reason: Will defer to PCP to investigate Patient seen and examined today. She is stable for discharge home with home health services as discussed with patient. I have gone over the discharge medication, discharge care plan and follow-up with the patient in great detail and answered all her questions. 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 The heart palpitations came on acutely and she felt her pulse up into her neck. She also had some very subtle chest pain which felt similar to previous episodes of chest pain she has had in the past. She also felt short of breath with the heart palpitations. She checked her heart rate on her pulse ox at home and it was as high as the 150s on the way here but mostly in the 100s-120s. Denies any leg swelling or leg pain. It made her very anxious and she came to the ED for further evaluation. She reports recurrent UTIs and currently has been having significant urinary urgency, frequency after taking fosfomycin x 3 doses about 2 weeks ago with not much improvement. She was found to be in rapid atrial fibrillation with heart rates in the 120s. She was given a dose of IV diltiazem as well as IV fluids and IV insulin for hyperglycemia. Her heart rates did improve to the 100s after these interventions. Troponin was initially 8, and repeat 3 hours later was up to 20. The patient converted to normal sinus rhythm spontaneously shortly after I admitted her, and initially she wanted to go home, but given elevated troponin, she will be admitted overnight for observation. She was admitted for new onset atrial fibrillation with RVR. Discharge Exam General: No acute distress Psych: Awake and alert HEENT: Anicteric sclera, moist oral mucosa CVS: Regular rate and rhythm Lungs: Bilateral air entry, no wheezing noted Abdomen: Soft, nontender, no rebound, no guarding Ext: Trace lower extremity edema, no calf tenderness Neuro: No focal motor deficits noted Discharge Plan Discharge Items Patient Disposition: Home - Home Health Services Reason For Visit: RAPID AFIB Discharge Diagnosis: Atrial fibrillation Insulin-dependent type 2 diabetes mellitus Urinary tract infection with Klebsiella aerogenes Essential hypertension Chronic back pain Polymyalgia rheumatica on chronic prednisone GERD History of TIA Obesity Condition on Discharge: Fair Activity: As commented below Activity Comment: Activity as tolerated Non-emergency contact: Primary Care Provider, Specialist and Laboratory Chemical Assistant Call non-emergency contact if: you have any medication questions, your pain is not controlled and you have a fever Follow-up/Referrals: Johan Holbrook MD [Physician] - Lucila Rojas MD [Primary Care Provider] - Javid Figueroa MD [Physician] - Diet: Carb Consistent or DM2 and Heart Healthy Addtl Attending Provider Instructions: DISCHARGE INSTRUCTION TO PATIENT/FAMILY: Follow-up with your primary care provider within 1 week regarding: Posthospital discharge, medication review, medication refills and follow-up on all your medical problems, type 2 diabetes mellitus Please take all your discharge medications, discharge information and discharge instructions to all your doctors appointments. Avoid all NSAIDs including ibuprofen, Motrin, Advil, Aleve, naproxen, meloxicam, Toradol, diclofenac Please follow-up with your primary care doctor for outpatient referral for sleep study for evaluation of sleep apnea Please follow-up with cardiology as outpatient for new diagnosis of atrial fibrillation Please follow-up with endocrinology as outpatient for management of type 2 diabetes Labs through PCP in 1 week: CBC with differential, CMP, magnesium, vitamin D Pending Studies at Discharge: No Stand-Alone Forms: My [employer], Smoking Cessation Medications and DC Order Prescriptions: New Eliquis 5 mg Tablet 5 mg PO BID Qty: 60 0RF carvedilol 12.5 mg Tablet 12.5 mg PO BIDM Qty: 60 0RF Continued potassium chloride 20 mEq tablet extended release 20 meq PO DAILY PRN (Reason: diuretic use) Qty: 90 0RF Rx Instructions: Take 1 potassium pill each time you take a furosemide pill chlorthalidone 25 mg tablet 25 mg PO DAILY Qty: 90 3RF allopurinol 100 mg tablet 100 mg PO DAILY Qty: 90 3RF losartan 50 mg tablet 50 mg PO BID Qty: 180 3RF metformin 500 mg tablet extended release 24 hr 500 mg PO BID Qty: 180 3RF (DME) OneTouch Ultra Test Strip See Rx Instructions .Route Qty: 100 3RF Rx Instructions: test 3x day amlodipine [Norvasc] 10 mg tablet 10 mg PO QPM Qty: 90 3RF prednisone 5 mg tablet 10 mg PO QAM Qty: 60 2RF (DME) pen needle, diabetic 32 gauge x 5/32" needle See Rx Instructions .Route Qty: 100 5RF Rx Instructions: As directed to inject insulin 2 times a day cholecalciferol (vitamin D3) 1,250 mcg (50,000 unit) capsule 50,000 unit PO Q7D Qty: 12 1RF pregabalin [Lyrica] 75 mg capsule 75 mg PO QAM Qty: 30 5RF pregabalin [Lyrica] 100 mg capsule 100 mg PO HS Qty: 30 5RF buprenorphine 10 mcg/hour patch weekly 1 patch transdermal Q7D 7 Days Qty: 4 1RF bumetanide 1 mg tablet 1 mg PO DAILY PRN (Reason: edema) Qty: 90 1RF polyethylene glycol 3350 [Miralax] 17 gram powder in packet 17 g PO DAILY PRN (Reason: Constipation) mecobalamin (vitamin B12) 1,000 mcg lozenge 1,000 mcg PO DAILY Rx Instructions: allow to dissolve in mouth OR may chew lightly before swallowing pantoprazole 40 mg tablet,delayed release (DR/EC) 40 mg PO BID Qty: 180 0RF Humulin R U-500 (Conc) Kwikpen 500 unit/mL (3 mL) insulin pen 80 - 150 unit subcut BIDM Rx Instructions: 80-150 units SC twice daily as directed before meals semaglutide 2 mg/dose (8 mg/3 mL) pen injector 2 mg subcut WK Rx Instructions: Inject 2 mg once weekly Discontinued carvedilol 6.25 mg tablet 6.25 mg PO BID Qty: 180 3RF Rx Instructions: must administer with a meal/food aspirin [Adult Aspirin Regimen] 81 mg tablet,delayed release (DR/EC) 81 mg PO HS Discharge Orders: Discharge Order (Routine); Ordered 07/18/25 Ordered By: Kedar Mathews Admission Data Admit Date/Time: 07/14/25 15:52 Attending Provider: Kedar Mathews Admit Provider: Ginna Huynh Primary Care Provider: Lucila Rojas Other Providers: Ginna Huynh; Sidney Bui; [facility] Stay Data Consultations 07/13/25 12:02 ED Decision to Admit Stat 07/13/25 18:39 Consult Cardiology Routine Pending Results Patient Have Any Pending Studies at Discharge: No Discharge Instructions Given to Patient (Per Discharging Provider) DISCHARGE INSTRUCTION TO PATIENT/FAMILY: Follow-up with your primary care provider within 1 week regarding: Posthospital discharge, medication review, medication refills and follow-up on all your medical problems, type 2 diabetes mellitus Please take all your discharge medications, discharge information and discharge instructions to all your doctors appointments. Avoid all NSAIDs including ibuprofen, Motrin, Advil, Aleve, naproxen, meloxicam, Toradol, diclofenac Please follow-up with your primary care doctor for outpatient referral for sleep study for evaluation of sleep apnea Please follow-up with cardiology as outpatient for new diagnosis of atrial fibrillation Please follow-up with endocrinology as outpatient for management of type 2 diabetes Labs through PCP in 1 week: CBC with differential, CMP, magnesium, vitamin D Total Time Total Time Spent Total Time Spent (In Minutes): 40 minutes Coding Level of Care Code 19090 INP/OBS DISCH >30 MIN Diagnoses Atrial fibrillation with rapid ventricular response I48.91 Recurrent UTI (urinary tract infection) N39.0 Hypertension I10 Hypertension type: unspecified Type 2 diabetes mellitus E11.9 Diabetes mellitus complication status: without complication Diabetes mellitus longterm insulin use: without termite control service representative use
[2025-07-18 12:59] VITALS: BP 152/62
[2025-07-18] MEDS ORDERED: HumuLIN-R 500 UNITS/ML VIAL SQ SCH (17:00)
[2025-07-18] MEDS ORDERED: REMOVE & WASTE BUTRANS PATCH 1 EA EA SCH (19:59)
[2025-07-19] MEDS ORDERED: BUPRENORPHINE 10 MCG/HR TDSY TD SCH (20:00)
== END 2025-07-18 13:38 | disposition home health service (06) | DRG 309 ==
LOC: SUATTDRO → 2E 09:46 → ED 09:46 → SUATTDRO 16:19 → 2E 18:39 → SUATTDRO 07-14 15:52